=== PATIENT | female | born 1965 | race Caucasian/White ===

== ENCOUNTER 2016-07-22 15:32 | Emergency (ER) | payer OTHER ==
[~2016-07-22 15:32] MED LIST: /ATOR40TA; /ESCI20TA; /ESOM40CA; /FENT50PA; /TIOT18INH; ADV500INH INH; ADVAIR; ALBU83IN; ALBUPOW9 INH; ALDA25TA2; AMITIZIA; AMLO5TAB2 PO; AMOX500T PO; ANUS2.5C2 TOP; ASPI81TA85 PO; ATIV1TAB2; ATOR40TA PO; AVAP150T; AXID150C; BACL10TA2 PO; BACT800T5 PO; CARV3.12 PO; CLIN300C PO; CLON1TAB PO; COLA100C PO; CYMB60CA3 PO; DEMA20TA; DIPH50CA PO; DULO30CA PO; ENAL10TA2; ENAL10TA2 PO; ENAL20TA PO; FAMO20TA PO; FERR325T; FLEXERIL; FLON0.05; FLUT50SP; FURO40TA2 PO; GABA-283 PO; GABA300C2 PO; GLIP10TA18; IBUP80TA PO; IMIT100T; INSULANT; IPRASOL4 IN; KLON1TAB PO; KLOR1TAB77 PO; LANTINJ4 SC; LIDO5DIS36 TD; LISI-538 PO; LORA10TA2 PO; LOSA25TA8 PO; LYRI75CA; LYRI75CA PO; MAGN250T5 PO; MELO7.5S PO; METH-107 PO; METO5TAB2; METOPROLOL; MOBI15TA PO; MUPI2OI; NEXI40GR PO; NUCY50TA14 PO; NYSTOP POWDER; OMEP20CA3 PO; PAIN325T; PERCOCET PO; PROV90AE; REQU2TAB3; ROBA750T4 PO; ROPI2TAB PO; SENN8.6T PO; SERT-141 PO; SOMA350T PO; TESS100C PO; TIOTROPIUM INH; TIZA2CAP3 PO; TRAM100T; TRAM50TA2 PO; TRAZ50TA4 PO; VITA-115 PO; VITAMIN D50000 UNT; [UNRECOGNIZED DRUG - OTHER]; [UNRECOGNIZED DRUG - OTHER]; [UNRECOGNIZED DRUG - OTHER] PO; trajenta PO
[2016-07-22] MEDS ORDERED: MORPHINE 4 MG/ML 1ML SYRINGE As Ordered ONE ×2 (18:06→18:51)
[2016-07-22] MEDS ORDERED: ONDANSETRON 4MG/2ML VIAL (J2405) As Ordered ONE (18:06)
[2016-07-22 18:35] LABS: BASO % 0.9 % (0.0-1.0); EOS # 0.1 K/mm3 (0.0-0.50); EOS % 1.5 % (0.0-3.0); LARGE UNSTAINED CELL # 0.1 K/mm3 (0.0-0.4); LARGE UNSTAINED CELL % 1.6 % (0.0-4.0); LYMPH # 1.3 K/mm3 (1.5-4.5); LYMPH % 24.9 % (24.0-44.0); MEAN CORPUSCULAR HEMOGLOBIN 33.2 pg (27.0-33.0); MEAN CORPUSCULAR HGB CONC 32.8 g/dl (32.0-36.5); MEAN CORPUSCULAR VOLUME 101.2 fl (80.0-96.0); MONO # 0.2 K/mm3 (0.0-0.8); MONO % 4.9 % (0.0-5.0); NEUTROPHILS # 3.2 K/mm3 (1.8-7.7); NEUTROPHILS % 66.1 % (36.0-66.0); RED CELL DISTRIBUTION WIDTH 13.8 % (11.5-14.5); WHITE BLOOD COUNT 4.9 K/mm3 (4.0-10.0)
[2016-07-22 18:36] LABS: PLATELET COUNT, AUTOMATED 100 k/mm3 (150-450)
[2016-07-22 18:52] LABS: ALBUMIN 2.8 GM/DL (3.2-5.2); ALKALINE PHOSPHATASE 85 U/L (45-117); ALT/SGPT 21 U/L (12-78); ANION GAP 7 MEQ/L (8-16); AST/SGOT 30 U/L (15-37); BILIRUBIN,DIRECT 0.2 MG/DL (0.0-0.2); BILIRUBIN,TOTAL 0.6 MG/DL (0.2-1.0); BLOOD UREA NITROGEN 27 MG/DL (7-18); CALCIUM LEVEL 8.9 MG/DL (8.5-10.1); CARBON DIOXIDE LEVEL 23 MEQ/L (21-32); CHLORIDE LEVEL 112 MEQ/L (98-107); CREATININE FOR GFR 0.67 MG/DL (0.55-1.02); GLOMERULAR FILTRATION RATE > 60.0 (>58); GLUCOSE, FASTING 244 MG/DL (70-105); SODIUM LEVEL 142 MEQ/L (136-145); TOTAL PROTEIN 6.3 GM/DL (6.4-8.2)
[2016-07-22 18:54] LABS: POTASSIUM SERUM 5.3 MEQ/L (3.5-5.1)
--- NOTE | 2016-07-22 19:00 | REPUSA ---
HISTORY: Renal colic. TECHNIQUE: Multiple axial CT images were obtained through the abdomen and pelvis without administrat ion of oral or IV contrast material. FINDINGS: Correlation is made with prior study dated 05/03/2016. The liver appears lobulated which suggests cirrhosis. There is no intra or extrahepatic biliary duct al dilatation. The spleen is enlarged measuring 16 cm. 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 Status post cholecystectomy. The pancreas is of normal contour and attenuation characteristics. The re is no evidence of adrenal mass. The kidneys are normal in size, shape and configuration. No renal or ureteral calculi are identified . There is no hydroureter or hydronephrosis. There is no evidence for appendicitis. There is no bowel wall thickening. No evidence for small or large bowel obstruction. There is no evidence of abdominal ascites or lymphadenopathy. Small fat co ntaining umbilical hernia is seen. No evidence of acute abdominal pathology. There is no evidence of intrinsic or extrinsic bladder mass. There is no pelvic ascites or lymphaden opathy. The uterus and ovaries are atrophic. Images of the lung bases show no evidence of pleural or parenchymal mass. There are no pleural effus ions. The bony structures are free of lytic or blastic lesions. IMPRESSION: 1. The liver appears lobulated which suggests cirrhosis. There is no intra or extrahepatic biliary ductal dilatation. 2. The spleen is enlarged measuring 16 cm. 12 mm calcified splenic aneurysm is seen. 3. Small fat containing umbilical hernia is seen. No evidence of acute abdominal pathology. 4. The uterus and ovaries are atrophic. Thank you for your kind referral of this patient. We appreciate the opportunity to participate in th is patient's care.
[2016-07-22] MEDS ORDERED: NORCO 5/325MG TABLET (BULK) As Ordered ONE (20:31)
[2016-07-22] MEDS ORDERED: SOD POLYSTYRENE SULFONATE SUSP 15 GM/60 ML UD As Ordered ONE (20:34)
--- NOTE | 2016-07-22 20:39 | EDDOCDS ---
Physician Documentation [facility] Name: Hina Devi Age: 50 yrs Sex: Female : 1965 Arrival Date: 07/22/2016 Time: 15:32 Bed I6 Private MD: Woodrow Tan MD Disposition: 07/22 20:24 Critical Care: Critical care not applicable. le Disposition: 07/22/16 20:20 Discharged to Home/Self Care. Impression: Abdominal and pelvic pain, Splenomegaly, not elsewhere classified, Other and unspecified cirrhosis of liver - possible, Hyperkalemia. - Condition is Stable. - Discharge Instructions: Abdominal Pain, Adult, Enlarged Spleen, Hyperkalemia. - Medication Reconciliation, Local Pharmacy Hours form. - Follow up: Woodrow Tan; When: Call to arrange an appointment; Reason: Recheck today's complaints, Continuance of care. - Problem is an acute exacerbation. - Symptoms have improved. - Notes: Keep hydrated Return to the ED for any further concerns Historical: - Allergies: Avandia (Swelling); Cardizem CD; Glucophage (Swelling); Lisinopril; Pyridium (Swelling); - Home Meds: 1. Bentyl 10 mg Oral cap 1 cap 4 times per day (Last dose: 07/22/2016 08:00) 2. carvedilol 6.25 mg oral tab 2 times per day (Last dose: 07/22/2016 08:00) 3. clonazepam 0.5 mg oral tab hs (Last dose: 07/21/2016 20:00) 4. Lasix 80 mg oral tab 1 tab prn 5. losartan 50 mg oral tab 1 tab 2 times per day (Last dose: 07/22/2016 08:00) 6. DuoNeb Inhl as needed (Last dose: 07/22/2016) 7. Neurontin 300 mg Oral cap 3 times per day (Last dose: 07/22/2016) 8. Toujeo 40 units Q AM (Last dose: 07/22/2016) 9. Hum R sliding scale AC 10. omeprazole 20 mg Oral cpDR 1 cap once daily (Last dose: 07/22/2016) 11. ropinirole 4 mg oral tab hs (Last dose: 07/21/2016 20:00) 12. tizanidine 2 mg oral tab as needed 13. Wellbutrin XL 150 mg Oral Tb24 1 tab once daily (Last dose: 07/22/2016 08:00) - PMHx: Colitis; COPD; Diabetes - IDDM: controlled; Diabetes - NIDDM: controlled; GERD; Hypertension; mild renal failure; Pneumonia; PVC's; Shingles; - PSHx: Left leg abscess removed; ; Right archiles tendon repair; Right breast lumectomy; Cholecystectomy; Endometriol ablation; Sinus surgery to repair deviated septum; - Social history: Smoking status: Patient uses tobacco products, light tobacco smoker. No barriers to communication noted, The patient speaks fluent Vietnamese. - Family history: Not pertinent. - : The pt / caregiver states he / she is not on anticoagulants. Home medication list is obtained from the patient. - Exposure Risk Screening:: None identified. 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 0 in. (182.88 cm) (R); Pain 9/10; 18:42 BP 173 / 78; Pulse 82; Resp 20; Temp 98.9; Pulse Ox 97% ; Pain 7/10; jam1 18:50 Pain 7/10; dsf 19:29 BP 172 / 72; Pulse 84; Resp 18; Temp 98.6; Pulse Ox 96% ; ajs 19:32 Pain 8/10; dsf 15:34 Body Mass Index 44.76 (149.69 kg, 182.88 cm) gr2 19:29 PT WOULD NOT GIVE PAIN A NUMBER JUST STATES SHE FELT LIKE SHE WAS GETTING WORSE ajs MDM: 15:45 Urinalysis Ordered. EDMS 15:45 Urine Culture Ordered. EDMS 17:39 NS 0.9% 1000 ml IV at bolus once ordered. le 17:39 NS 0.9% 1000 ml IV at 100 mL/hr continuous ordered. le 17:39 Ondansetron 4 mg IVP once ordered. le 17:39 morphine 4 mg IVP every 30 minutes; Document pain score/vitals after each dose (Hold if le SBP < 90mmHg) x2 ordered. 17:39 IV Saline Lock ordered. le 17:39 Undress patient appropriately for examination ordered. le 17:41 Basic Metabolic Profile Ordered. EDMS 17:41 CBC with Diff Ordered. EDMS 17:41 Lipase Ordered. EDMS 17:41 Liver Profile Ordered. EDMS 17:41 CT ABD & PELVIS: No Contrast Ordered. EDMS 17:41 NOTHING BY MOUTH+DIET ordered. EDMS 18:14 Financial registration complete. [facility] 18:22 [facility] Payment Agreement was scanned into [employer] and attached to record. gjb 18:42 Urinalysis Reviewed. le 18:42 CBC with Diff Reviewed. le 20:11 Basic Metabolic Profile Reviewed. le 20:11 Liver Profile Reviewed. le 20:11 Lipase Reviewed. le 20:11 CT ABD & PELVIS: No Contrast Reviewed. le 20:13 Polystyrene Suspension 30 grams PO once ordered. le 20:13 HYDROcodone-acetaminophen 4 pack- 5 mg-325 mg 1 packets PO Per package directions; le Dispense with patient. 1 po q4h prn for pain ordered. Administered Medications: 18:25 Drug: NS 0.9% 1000 ml [sodium chloride 0.9 % injection solution] Route: IV; Rate: dsf bolus; Site: right antecubital; 19:40 Follow up: IV Status: Completed infusion; IV Intake: 1000ml dsf 18:25 Drug: Ondansetron 4 mg [ondansetron HCl 2 mg/mL intravenous solution (2 mL)] Route: dsf IVP; Site: right antecubital; 18:25 Drug: morphine 4 mg [morphine 4 mg/mL intravenous cartridge (1 mL)] Route: IVP; Site: dsf right antecubital; 18:50 Follow up: Pain 7/10 Adult; see charted VS dsf 18:54 Drug: morphine 4 mg [morphine 4 mg/mL intravenous cartridge (1 mL)] Route: IVP; Site: dsf right antecubital; 19:32 Follow up: Pain 8/10 Adult; see charted vs dsf 19:41 Drug: NS 0.9% 1000 ml [sodium chloride 0.9 % injection solution] Route: IV; Rate: 100 dsf mL/hr; Site: right antecubital; Signatures: [facility]patcher [facility] Pedro Pablo Bishop RN RN dwg Terry, VERO Nunez Desiree,ISABELLA RN Britta Vela The chart was reviewed and I authenticate all verbal orders and agree with the evaluation and treatment provided.Attachments: 18:22 [facility] Payment Agreement edda MTDD
--- NOTE | 2016-07-22 20:39 | EDDOCDS ---
Nurse's Notes [facility] Name: Hina Devi Age: 50 yrs Sex: Female : 1965 Arrival Date: 07/22/2016 Time: 15:32 Bed I6 Private MD: Woodrow Tan MD Diagnosis: Abdominal and pelvic pain;Splenomegaly, not elsewhere classified;Other and unspecified cirrhosis of liver-possible;Hyperkalemia Presentation: 07/22 15:37 Presenting complaint: Patient states: Pelvic discomfort since last night along with dwg bilateral flank pain, dysuria. Acute neurological deficits are not present. Mechanism of Injury: No Mechanism of Injury. Adult Sepsis Screening: The patient does not have new or worsening altered mentation. Patient's respiratory rate is less than 22. Systolic blood pressure is greater than 100. Patient has a qSOFA score of 0- Negative Sepsis Screen. Suicide/Homicide risk assessment- the patient denies having any suicidal and/or homicidal ideations and does not present with any other emotional, behavioral or mental health complaints. 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 Transition of care: patient was not received from another setting of care. 15:37 Acuity: SRIKANTH Level 3 dwg 15:37 Method Of Arrival: Walkin/Carried/Asstd dwg Triage Assessment: 15:47 General: Appears in no apparent distress. Pain: Pain currently is 8 out of 10 on a pain dwg scale. HIV screening NA for this visit Offered previously. 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 Bentyl 10 mg Oral cap 1 cap 4 times per day (Last dose: 07/22/2016 08:00) 2. carvedilol 6.25 mg oral tab 2 times per day (Last dose: 07/22/2016 08:00) 3. clonazepam 0.5 mg oral tab hs (Last dose: 07/21/2016 20:00) 4. Lasix 80 mg oral tab 1 tab prn 5. losartan 50 mg oral tab 1 tab 2 times per day (Last dose: 07/22/2016 08:00) 6. DuoNeb Inhl as needed (Last dose: 07/22/2016) 7. Neurontin 300 mg Oral cap 3 times per day (Last dose: 07/22/2016) 8. Toujeo 40 units Q AM (Last dose: 07/22/2016) 9. Hum R sliding scale AC 10. omeprazole 20 mg Oral cpDR 1 cap once daily (Last dose: 07/22/2016) 11. ropinirole 4 mg oral tab hs (Last dose: 07/21/2016 20:00) 12. tizanidine 2 mg oral tab as needed 13. Wellbutrin XL 150 mg Oral Tb24 1 tab once daily (Last dose: 07/22/2016 08:00) - PMHx: Colitis; COPD; Diabetes - IDDM: controlled; Diabetes - NIDDM: controlled; GERD; Hypertension; mild renal failure; Pneumonia; PVC's; Shingles; - PSHx: Left leg abscess removed; ; Right archiles tendon repair; Right breast lumectomy; Cholecystectomy; Endometriol ablation; Sinus surgery to repair deviated septum; - Social history: Smoking status: Patient uses tobacco products, light tobacco smoker. No barriers to communication noted, The patient speaks fluent Occitan. - Family history: Not pertinent. - : The pt / caregiver states he / she is not on anticoagulants. Home medication list is obtained from the patient. - Exposure Risk Screening:: None identified. Screenin:04 Infection Control. gr2 20:36 Screening information is obtained from the patient. Fall risk: No risks identified. dsf Assistance ADL's: requires no assistance with activities of daily living. Abuse/DV Screen: The patient / caregiver reports he/she is: not in a situation that causes fear, pain or injury. Nutritional screening: No deficits noted. Advance Directives: Currently, there is no health care proxy. home support is adequate. Assessment: 18:03 General: pt returned from CT via stretcher . dsf 18:25 General: Appears uncomfortable, Behavior is appropriate for age, cooperative. Pain: dsf Location: low back and left flank Pain currently is 8 out of 10 on a pain scale. Quality of pain is described as sharp. Neurological: Level of Consciousness is awake, alert, Oriented to person, place, time. Cardiovascular: Capillary refill < 3 seconds Heart tones S1 S2 present. Respiratory: Airway is patent Respiratory effort is even, unlabored, Respiratory pattern is regular, symmetrical, Breath sounds are clear bilaterally. GI: Abdomen is non- distended obese, Bowel sounds present X 4 quads. Abd is soft X 4 quads Abd is tender to palpation in left upper quadrant and left lower quadrant. Derm: Skin is pink, warm & dry. Musculoskeletal: No deficits noted. 19:41 General: Appears uncomfortable, Behavior is appropriate for age, cooperative. Pain: dsf Pain currently is 7 out of 10 on a pain scale. Neurological: Level of Consciousness is awake, alert. Cardiovascular: Capillary refill < 3 seconds. Respiratory: Airway is patent Respiratory effort is even, unlabored, Respiratory pattern is regular, symmetrical. Derm: Skin is pink, warm & dry. 20:36 General: Appears uncomfortable, Behavior is appropriate for age, cooperative. Pain: dsf Location: back and left flank Pain currently is 7 out of 10 on a pain scale. Neurological: Level of Consciousness is awake, alert. Cardiovascular: Capillary refill < 3 seconds. Respiratory: Airway is patent Respiratory effort is even, unlabored, Respiratory pattern is regular, symmetrical. Derm: Skin is pink, warm & dry. Vital Signs: 15:34 BP 197 / 88; Pulse 91; Resp 18 S; Temp 99.1(O); Pulse Ox 97% on R/A; Weight 149.69 kg gr2 (R); Height 6 ft. 0 in. (182.88 cm) (R); Pain 9/10; 18:42 BP 173 / 78; Pulse 82; Resp 20; Temp 98.9; Pulse Ox 97% ; Pain 7/10; jam1 18:50 Pain 7/10; dsf 19:29 BP 172 / 72; Pulse 84; Resp 18; Temp 98.6; Pulse Ox 96% ; ajs 19:32 Pain 8/10; dsf 15:34 Body Mass Index 44.76 (149.69 kg, 182.88 cm) gr2 19:29 PT WOULD NOT GIVE PAIN A NUMBER JUST STATES SHE FELT LIKE SHE WAS GETTING WORSE ajs Vitals: 15:34 Log In Time: July 22, 2016 at 15:34. gr2 ED Course: 15:34 Patient visited by Stephie Ontiveros. gr2 15:34 Woodrow Tan is Private Physician. gr2 15:34 Patient moved to Waiting gr2 15:36 Patient visited by Stephie Ontiveros. gr2 15:36 Patient moved to Pre RCE gr2 15:38 Triage Initiated dwg 16:05 Patient moved to Triage 3 srm 16:20 Urine Culture Sent. mdr 16:20 Urinalysis Sent. mdr 17:28 May[facility] Stewart FNP [facility]. le 17:34 Patient visited by Mayra Stewart FNP. le 17:34 Patient visited by Mayra Stewart FNP. le 17:44 Patient moved to I srm 18:22 [facility] Payment Agreement was scanned into [employer] and attached to record. gjb 18:24 Basic Metabolic Profile Sent. dsf 18:24 CBC with Diff Sent. dsf 18:24 Lipase Sent. dsf 18:24 Liver Profile Sent. dsf 18:24 Inserted saline lock: 18 gauge in right antecubital area The patient tolerated the dsf procedure well. No procedures done that require assistance. 18:26 Patient visited by Sylvia Redd RN. dsf 19:18 CT ABD & PELVIS: No Contrast Returned. EDMS 19:30 Patient visited by Rocio Mclaughlin. ajs 19:41 Patient visited by Sylvia Redd,ISABELLA. dsf 20:20 Woodrow Tan is Referral Physician. le 20:36 The patient / caregiver is instructed regarding the plan of care and ED course. dsf 20:37 Discontinued lock intact, bleeding controlled, pressure dressing applied, No dsf redness/swelling at site. Administered Medications: 18:25 Drug: NS 0.9% 1000 ml [sodium chloride 0.9 % injection solution] Route: IV; Rate: dsf bolus; Site: right antecubital; 19:40 Follow up: IV Status: Completed infusion; IV Intake: 1000ml dsf 18:25 Drug: Ondansetron 4 mg [ondansetron HCl 2 mg/mL intravenous solution (2 mL)] Route: dsf IVP; Site: right antecubital; 18:25 Drug: morphine 4 mg [morphine 4 mg/mL intravenous cartridge (1 mL)] Route: IVP; Site: dsf right antecubital; 18:50 Follow up: Pain 7/10 Adult; see charted VS dsf 18:54 Drug: morphine 4 mg [morphine 4 mg/mL intravenous cartridge (1 mL)] Route: IVP; Site: dsf right antecubital; 19:32 Follow up: Pain 8/10 Adult; see charted vs dsf 19:41 Drug: NS 0.9% 1000 ml [sodium chloride 0.9 % injection solution] Route: IV; Rate: 100 dsf mL/hr; Site: right antecubital; Intake: 19:40 IV: 1000.00ml; Total: 1000.00ml. dsf Order Results: Lab Order: Urinalysis; SPEC'M 07/22/16 16:16 Test: APPEARANCE, URINE; Value: HAZY; Range: CLEAR; Status: F Test: COLOR, URINE; Value: YELLOW; Range: YELLOW; Status: F Test: PH,URINE; Value: 5.0; Range: 5.0-9.0; Units: UNITS; Status: F Test: SPECIFIC GRAVITY URINE AUTO; Value: 1.015; Range: 1.002-1.035; Status: F Test: PROTEIN, URINE AUTO; Value: 2+; Range: NEGATIVE; Abnormal: Above high normal; Units: mg/dL; Status: F Test: GLUCOSE, URINE (UA) AUTO; Value: 3+; Range: NEGATIVE; Abnormal: Above high normal; Units: mg/dL; Status: F Test: KETONE, URINE AUTO; Value: NEGATIVE; Range: NEGATIVE; Units: mg/dL; Status: F Test: UROBILINOGEN, URINE AUTO; Value: 0.2; Range: 0.0-2.0; Units: mg/dL; Status: F Test: BILIRUBIN, URINE AUTO; Value: NEGATIVE; Range: NEGATIVE; Status: F Test: NITRITE, URINE AUTO; Value: POSITIVE; Range: NEGATIVE; Status: F Test: LEUKOCYTE ESTERASE, URINE AUTO; Value: 2+; Range: NEGATIVE; Abnormal: Above high normal; Status: F Test: BLOOD, URINE BLOOD; Value: 3+; Range: NEGATIVE; Abnormal: Above high normal; Status: F Test: WBC, URINE AUTO; Value: 155; Range: 0-3; Abnormal: Above high normal; Units: /HPF; Status: F Test: RBC, URINE AUTO; Value: 4; Range: 0-3; Abnormal: Above high normal; Units: /HPF; Status: F Test: BACTERIA, URINE AUTO; Value: NEGATIVE; Range: NEGATIVE; Status: F Test: SQUAMOUS EPITHELIAL CELL UR AU; Value: 0; Range: 0-6; Units: /HPF; Status: F Test: MUCUS, URINE; Value: SMALL; Range: NEGATIVE; Status: F Test: HYALINE CAST, URINE AUTO; Value: 0; Range: 0-1; Units: /LPF; Status: F Lab Order: Basic Metabolic Profile; SPEC'M 07/22/16 18:12 Test: GLUCOSE, FASTING; Value: 244; Range: 70-105; Abnormal: Above high normal; Units: MG/DL; Status: F Test: BLOOD UREA NITROGEN; Value: 27; Range: 7-18; Abnormal: Above high normal; Units: MG/DL; Status: F Test: CREATININE FOR GFR; Value: 0.67; Range: 0.55-1.02; Units: MG/DL; Status: F Test: GLOMERULAR FILTRATION RATE; Value: > 60.0; Range: >58; Status: F Test: SODIUM LEVEL; Value: 142; Range: 136-145; Units: MEQ/L; Status: F Test: POTASSIUM SERUM; Value: 5.3; Range: 3.5-5.1; Abnormal: Above high normal; Units: MEQ/L; Status: F Test: CHLORIDE LEVEL; Value: 112; Range: 98-107; Abnormal: Above high normal; Units: MEQ/L; Status: F Test: CARBON DIOXIDE LEVEL; Value: 23; Range: 21-32; Units: MEQ/L; Status: F Test: ANION GAP; Value: 7; Range: 8-16; Abnormal: Below low normal; Units: MEQ/L; Status: F Test: CALCIUM LEVEL; Value: 8.9; Range: 8.5-10.1; Units: MG/DL; Status: F Test Note: ; Units are mL/min/1.73 m2 Chronic Kidney Disease Staging per NKF: Stage I & II GFR >=60 Normal to Mildly Decreased Stage III GFR 30-59 Moderately Decreased Stage IV GFR 15-29 Severely Decreased Stage V GFR <15 Very Little GFR Left ESRD GFR <15 on AUTO CLUTCH REBUILDER Lab Order: CBC with Diff; SPEC'M 07/22/16 18:12 Test: WHITE BLOOD COUNT; Value: 4.9; Range: 4.0-10.0; Units: K/mm3; Status: F Test: RED BLOOD COUNT; Value: 4.02; Range: 4.00-5.40; Units: M/mm3; Status: F Test: HEMOGLOBIN; Value: 13.3; Range: 12.0-16.0; Units: g/dl; Status: F Test: HEMATOCRIT; Value: 40.6; Range: 36.0-47.0; Units: %; Status: F Test: MEAN CORPUSCULAR VOLUME; Value: 101.2; Range: 80.0-96.0; Abnormal: Above high normal; Units: fl; Status: F Test: MEAN CORPUSCULAR HEMOGLOBIN; Value: 33.2; Range: 27.0-33.0; Abnormal: Above high normal; Units: pg; Status: F Test: MEAN CORPUSCULAR HGB CONC; Value: 32.8; Range: 32.0-36.5; Units: g/dl; Status: F Test: RED CELL DISTRIBUTION WIDTH; Value: 13.8; Range: 11.5-14.5; Units: %; Status: F Test: PLATELET COUNT, AUTOMATED; Value: 100; Range: 150-450; Abnormal: Below low normal; Units: k/mm3; Status: F Test: NEUTROPHILS %; Value: 66.1; Range: 36.0-66.0; Abnormal: Above high normal; Units: %; Status: F Test: LYMPH %; Value: 24.9; Range: 24.0-44.0; Units: %; Status: F Test: MONO %; Value: 4.9; Range: 0.0-5.0; Units: %; Status: F Test: EOS %; Value: 1.5; Range: 0.0-3.0; Units: %; Status: F Test: BASO %; Value: 0.9; Range: 0.0-1.0; Units: %; Status: F Test: LARGE UNSTAINED CELL %; Value: 1.6; Range: 0.0-4.0; Units: %; Status: F Test: NEUTROPHILS #; Value: 3.2; Range: 1.8-7.7; Units: K/mm3; Status: F Test: LYMPH #; Value: 1.3; Range: 1.5-4.5; Abnormal: Below low normal; Units: K/mm3; Status: F Test: MONO #; Value: 0.2; Range: 0.0-0.8; Units: K/mm3; Status: F Test: EOS #; Value: 0.1; Range: 0.0-0.50; Units: K/mm3; Status: F Test: BASO #; Value: 0.0; Range: 0.0-0.2; Units: K/mm3; Status: F Test: LARGE UNSTAINED CELL #; Value: 0.1; Range: 0.0-0.4; Units: K/mm3; Status: F Lab Order: Lipase; SPEC'M 07/22/16 18:12 Test: LIPASE; Value: 288; Range: 73-393; Units: U/L; Status: F Lab Order: Liver Profile; SPEC'M 07/22/16 18:12 Test: AST/SGOT; Value: 30; Range: 15-37; Units: U/L; Status: F Test: ALT/SGPT; Value: 21; Range: 12-78; Units: U/L; Status: F Test: ALKALINE PHOSPHATASE; Value: 85; Range: 45-117; Units: U/L; Status: F Test: BILIRUBIN,TOTAL; Value: 0.6; Range: 0.2-1.0; Units: MG/DL; Status: F Test: BILIRUBIN,DIRECT; Value: 0.2; Range: 0.0-0.2; Units: MG/DL; Status: F Test: TOTAL PROTEIN; Value: 6.3; Range: 6.4-8.2; Abnormal: Below low normal; Units: GM/DL; Status: F Test: ALBUMIN; Value: 2.8; Range: 3.2-5.2; Abnormal: Below low normal; Units: GM/DL; Status: F Test: ALBUMIN/GLOBULIN RATIO; Value: 0.80; Range: 1.00-1.93; Abnormal: Below low normal; Status: F Radiology Order: CT ABD & PELVIS: No Contrast Test: CT ABD & PELVIS: No Contrast REASON FOR EXAMINATION: Renal colic; ; HISTORY: Renal colic.; ; TECHNIQUE: Multiple axial CT images were obtained through the abdomen and pelvis without administrat; ion of oral or IV contrast material.; ; FINDINGS:; ; Correlation is made with prior study dated 05/03/2016.; ; The liver appears lobulated which suggests cirrhosis. There is no intra or extrahepatic biliary duct; al dilatation. The spleen is enlarged measuring 16 cm. 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 The pancreas is of normal contour and attenuation characteristics. The; re is no evidence of adrenal mass.; ; The kidneys are normal in size, shape and configuration. No renal or ureteral calculi are identified; . There is no hydroureter or hydronephrosis.; ; There is no evidence for appendicitis. There is no bowel wall thickening. No evidence for small or; large bowel obstruction. There is no evidence of abdominal ascites or lymphadenopathy. Small fat co; ntaining umbilical hernia is seen. No evidence of acute abdominal pathology.; ; There is no evidence of intrinsic or extrinsic bladder mass. There is no pelvic ascites or lymphaden; opathy.; ; The uterus and ovaries are atrophic.; ; Images of the lung bases show no evidence of pleural or parenchymal mass. There are no pleural effus; ions.; ; The bony structures are free of lytic or blastic lesions.; ; IMPRESSION:; 1. The liver appears lobulated which suggests cirrhosis. There is no intra or extrahepatic biliary; ductal dilatation.; 2. The spleen is enlarged measuring 16 cm. 12 mm calcified splenic aneurysm is seen.; 3. Small fat containing umbilical hernia is seen. No evidence of acute abdominal pathology.; 4. The uterus and ovaries are atrophic.; ; ; Thank you for your kind referral of this patient. We appreciate the opportunity to participate in ; is patient's care.; ; ; ; ; ; Outcome: 20:20 Discharge ordered by Provider. le 20:38 Discharge Assessment: Patient awake, alert and oriented x 3. No cognitive and/or dsf functional deficits noted. Patient verbalized understanding of disposition instructions. patient administered narcotics - no. The following High Risk Discharge criteria are identified: None. Discharged to home ambulatory. Condition: stable. Discharge instructions given to patient, Instructed on discharge instructions, follow up and referral plans. medication usage, no driving heavy equipment, Demonstrated understanding of instructions, medications, Pt was receptive of discharge instructions/ teaching. CT Study completed. Property sent home with patient. 20:38 Patient left the ED. dsf Signatures: Dispatcher [facility] EDPedro Pablo Rodriguez RN RN Osiris Staples, RN RN Olga Catherine, PATTERN DATA OPERATOR PATTERN DATA OPERATOR jam1 Mayra Stewart, INSIDE SALES PERSON Sylvia Mcdaniel,RN RN Rocio Aleman Gainslee gr2 Navneet Castañeda, PATTERN DATA OPERATOR PATTERN DATA OPERATOR mdr Adalberto, Britta bañuelos MTDD
--- NOTE | 2016-07-24 21:39 | EDDOCDS ---
Physician Documentation [facility] Name: Hina Devi Age: 50 yrs Sex: Female : 1965 Arrival Date: 07/22/2016 Time: 15:32 Bed I6 Private MD: Woodrow Tan MD Disposition: 07/22 20:24 Critical Care: Critical care not applicable. le Disposition: 07/22/16 20:20 Discharged to Home/Self Care. Impression: Abdominal and pelvic pain, Splenomegaly, not elsewhere classified, Other and unspecified cirrhosis of liver - possible, Hyperkalemia. - Condition is Stable. - Discharge Instructions: Abdominal Pain, Adult, Enlarged Spleen, Hyperkalemia. - Medication Reconciliation, Local Pharmacy Hours form. - Follow up: Woodrow Tan; When: Call to arrange an appointment; Reason: Recheck today's complaints, Continuance of care. - Problem is an acute exacerbation. - Symptoms have improved. - Notes: Keep hydrated Return to the ED for any further concerns Historical: - Allergies: Avandia (Swelling); Cardizem CD; Glucophage (Swelling); Lisinopril; Pyridium (Swelling); - Home Meds: 1. Bentyl 10 mg Oral cap 1 cap 4 times per day (Last dose: 07/22/2016 08:00) 2. carvedilol 6.25 mg oral tab 2 times per day (Last dose: 07/22/2016 08:00) 3. clonazepam 0.5 mg oral tab hs (Last dose: 07/21/2016 20:00) 4. Lasix 80 mg oral tab 1 tab prn 5. losartan 50 mg oral tab 1 tab 2 times per day (Last dose: 07/22/2016 08:00) 6. DuoNeb Inhl as needed (Last dose: 07/22/2016) 7. Neurontin 300 mg Oral cap 3 times per day (Last dose: 07/22/2016) 8. Toujeo 40 units Q AM (Last dose: 07/22/2016) 9. Hum R sliding scale AC 10. omeprazole 20 mg Oral cpDR 1 cap once daily (Last dose: 07/22/2016) 11. ropinirole 4 mg oral tab hs (Last dose: 07/21/2016 20:00) 12. tizanidine 2 mg oral tab as needed 13. Wellbutrin XL 150 mg Oral Tb24 1 tab once daily (Last dose: 07/22/2016 08:00) - PMHx: Colitis; COPD; Diabetes - IDDM: controlled; Diabetes - NIDDM: controlled; GERD; Hypertension; mild renal failure; Pneumonia; PVC's; Shingles; - PSHx: Left leg abscess removed; ; Right archiles tendon repair; Right breast lumectomy; Cholecystectomy; Endometriol ablation; Sinus surgery to repair deviated septum; - Social history: Smoking status: Patient uses tobacco products, light tobacco smoker. No barriers to communication noted, The patient speaks fluent Kyrgyz. - Family history: Not pertinent. - : The pt / caregiver states he / she is not on anticoagulants. Home medication list is obtained from the patient. - Exposure Risk Screening:: None identified. 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 0 in. (182.88 cm) (R); Pain 9/10; 18:42 BP 173 / 78; Pulse 82; Resp 20; Temp 98.9; Pulse Ox 97% ; Pain 7/10; jam1 18:50 Pain 7/10; dsf 19:29 BP 172 / 72; Pulse 84; Resp 18; Temp 98.6; Pulse Ox 96% ; ajs 19:32 Pain 8/10; dsf 15:34 Body Mass Index 44.76 (149.69 kg, 182.88 cm) gr2 19:29 PT WOULD NOT GIVE PAIN A NUMBER JUST STATES SHE FELT LIKE SHE WAS GETTING WORSE ajs MDM: 15:45 Urinalysis Ordered. EDMS 15:45 Urine Culture Ordered. EDMS 17:39 NS 0.9% 1000 ml IV at bolus once ordered. le 17:39 NS 0.9% 1000 ml IV at 100 mL/hr continuous ordered. le 17:39 Ondansetron 4 mg IVP once ordered. le 17:39 morphine 4 mg IVP every 30 minutes; Document pain score/vitals after each dose (Hold if le SBP < 90mmHg) x2 ordered. 17:39 IV Saline Lock ordered. le 17:39 Undress patient appropriately for examination ordered. le 17:41 Basic Metabolic Profile Ordered. EDMS 17:41 CBC with Diff Ordered. EDMS 17:41 Lipase Ordered. EDMS 17:41 Liver Profile Ordered. EDMS 17:41 CT ABD & PELVIS: No Contrast Ordered. EDMS 17:41 NOTHING BY MOUTH+DIET ordered. EDMS 18:14 Financial registration complete. gjb 18:22 [facility] Payment Agreement was scanned into [employer] and attached to record. gjb 18:42 Urinalysis Reviewed. le 18:42 CBC with Diff Reviewed. le 20:11 Basic Metabolic Profile Reviewed. le 20:11 Liver Profile Reviewed. le 20:11 Lipase Reviewed. le 20:11 CT ABD & PELVIS: No Contrast Reviewed. le 20:13 Polystyrene Suspension 30 grams PO once ordered. le 20:13 HYDROcodone-acetaminophen 4 pack- 5 mg-325 mg 1 packets PO Per package directions; le Dispense with patient. 1 po q4h prn for pain ordered. 07/23 11:27 T-Sheet-- Draft Copy was scanned into [employer] and attached to record. gb 14:43 ED course: dr tan faxed formal report of ct abd/p for fu mlg. ml Administered Medications: 07/22 18:25 Drug: NS 0.9% 1000 ml [sodium chloride 0.9 % injection solution] Route: IV; Rate: dsf bolus; Site: right antecubital; 19:40 Follow up: IV Status: Completed infusion; IV Intake: 1000ml dsf 18:25 Drug: Ondansetron 4 mg [ondansetron HCl 2 mg/mL intravenous solution (2 mL)] Route: dsf IVP; Site: right antecubital; 18:25 Drug: morphine 4 mg [morphine 4 mg/mL intravenous cartridge (1 mL)] Route: IVP; Site: dsf right antecubital; 18:50 Follow up: Pain 7/10 Adult; see charted VS dsf 18:54 Drug: morphine 4 mg [morphine 4 mg/mL intravenous cartridge (1 mL)] Route: IVP; Site: dsf right antecubital; 19:32 Follow up: Pain 8/10 Adult; see charted vs dsf 19:41 Drug: NS 0.9% 1000 ml [sodium chloride 0.9 % injection solution] Route: IV; Rate: 100 dsf mL/hr; Site: right antecubital; 20:39 Follow up: IV Status: Infusion discontinued; IV Intake: 150ml dsf 20:34 Drug: Polystyrene 30 grams [sodium polystyrene sulfonate 15 gram/60 mL oral suspension dsf (120 mL)] Route: PO; 20:34 Drug: HYDROcodone-acetaminophen 4 pack- 1 packets [hydrocodone 5 mg-acetaminophen 325 dsf mg tablet (1 tabs)] {Co-Signature: [email or web address] (Marcie Warren RN).} Route: PO; Signatures: Dispatcher [employer] EDMS Julio Romo MD MD ml Greene, Daniel, RN RN dwg Brandi Young, Reg Reg gb Mayra Stewart, Sylvia Rosales RN RN dsf Beck, Gabriela gjb Kelsi Crane RN [id number] The chart was reviewed and I authenticate all verbal orders and agree with the evaluation and treatment provided.Attachments: 18:22 [facility] Payment Agreement [email or web address] 07/23 11:27 T-Sheet-- Draft Copy gb Chart Complete MTDD
--- NOTE | 2016-07-24 21:39 | EDDOCDS ---
[facility] Name: Hina Devi Age: 50 yrs Sex: Female : 1965 Arrival Date: 07/22/2016 Time: 15:32 Bed I6 Private MD: Woodrow Tan MD Diagnosis: Abdominal and pelvic pain;Splenomegaly, not elsewhere classified;Other and unspecified cirrhosis of liver-possible;Hyperkalemia Presentation: 07/22 15:37 Presenting complaint: Patient states: Pelvic discomfort since last night along with dwg bilateral flank pain, dysuria. Acute neurological deficits are not present. Mechanism of Injury: No Mechanism of Injury. Adult Sepsis Screening: The patient does not have new or worsening altered mentation. Patient's respiratory rate is less than 22. Systolic blood pressure is greater than 100. Patient has a qSOFA score of 0- Negative Sepsis Screen. Suicide/Homicide risk assessment- the patient denies having any suicidal and/or homicidal ideations and does not present with any other emotional, behavioral or mental health complaints. Status: Patient is not a aircraft servicer or dependent. Transition of care: patient was not received from another setting of care. 15:37 Acuity: SRIKANTH Level 3 dwg 15:37 Method Of Arrival: Walkin/Carried/Asstd dwg Triage Assessment: 15:47 General: Appears in no apparent distress. Pain: Pain currently is 8 out of 10 on a pain dwg scale. HIV screening NA for this visit Offered previously. TEST ENGINEER: 15:47 LMP N/A - Uterine ablation dwg Historical: - Allergies: Avandia (Swelling); Cardizem CD; Glucophage (Swelling); Lisinopril; Pyridium (Swelling); - Home Meds: 1. Bentyl 10 mg Oral cap 1 cap 4 times per day (Last dose: 07/22/2016 08:00) 2. carvedilol 6.25 mg oral tab 2 times per day (Last dose: 07/22/2016 08:00) 3. clonazepam 0.5 mg oral tab hs (Last dose: 07/21/2016 20:00) 4. Lasix 80 mg oral tab 1 tab prn 5. losartan 50 mg oral tab 1 tab 2 times per day (Last dose: 07/22/2016 08:00) 6. DuoNeb Inhl as needed (Last dose: 07/22/2016) 7. Neurontin 300 mg Oral cap 3 times per day (Last dose: 07/22/2016) 8. Toujeo 40 units Q AM (Last dose: 07/22/2016) 9. Hum R sliding scale AC 10. omeprazole 20 mg Oral cpDR 1 cap once daily (Last dose: 07/22/2016) 11. ropinirole 4 mg oral tab hs (Last dose: 07/21/2016 20:00) 12. tizanidine 2 mg oral tab as needed 13. Wellbutrin XL 150 mg Oral Tb24 1 tab once daily (Last dose: 07/22/2016 08:00) - PMHx: Colitis; COPD; Diabetes - IDDM: controlled; Diabetes - NIDDM: controlled; GERD; Hypertension; mild renal failure; Pneumonia; PVC's; Shingles; - PSHx: Left leg abscess removed; ; Right archiles tendon repair; Right breast lumectomy; Cholecystectomy; Endometriol ablation; Sinus surgery to repair deviated septum; - Social history: Smoking status: Patient uses tobacco products, light tobacco smoker. No barriers to communication noted, The patient speaks fluent Chinese. - Family history: Not pertinent. - : The pt / caregiver states he / she is not on anticoagulants. Home medication list is obtained from the patient. - Exposure Risk Screening:: None identified. Screenin:04 Infection Control. gr2 20:36 Screening information is obtained from the patient. Fall risk: No risks identified. dsf Assistance ADL's: requires no assistance with activities of daily living. Abuse/DV Screen: The patient / caregiver reports he/she is: not in a situation that causes fear, pain or injury. Nutritional screening: No deficits noted. Advance Directives: Currently, there is no health care proxy. home support is adequate. Assessment: 18:03 General: pt returned from CT via stretcher . dsf 18:25 General: Appears uncomfortable, Behavior is appropriate for age, cooperative. Pain: dsf Location: low back and left flank Pain currently is 8 out of 10 on a pain scale. Quality of pain is described as sharp. Neurological: Level of Consciousness is awake, alert, Oriented to person, place, time. Cardiovascular: Capillary refill < 3 seconds Heart tones S1 S2 present. Respiratory: Airway is patent Respiratory effort is even, unlabored, Respiratory pattern is regular, symmetrical, Breath sounds are clear bilaterally. GI: Abdomen is non- distended obese, Bowel sounds present X 4 quads. Abd is soft X 4 quads Abd is tender to palpation in left upper quadrant and left lower quadrant. Derm: Skin is pink, warm & dry. Musculoskeletal: No deficits noted. 19:41 General: Appears uncomfortable, Behavior is appropriate for age, cooperative. Pain: dsf Pain currently is 7 out of 10 on a pain scale. Neurological: Level of Consciousness is awake, alert. Cardiovascular: Capillary refill < 3 seconds. Respiratory: Airway is patent Respiratory effort is even, unlabored, Respiratory pattern is regular, symmetrical. Derm: Skin is pink, warm & dry. 20:36 General: Appears uncomfortable, Behavior is appropriate for age, cooperative. Pain: dsf Location: back and left flank Pain currently is 7 out of 10 on a pain scale. Neurological: Level of Consciousness is awake, alert. Cardiovascular: Capillary refill < 3 seconds. Respiratory: Airway is patent Respiratory effort is even, unlabored, Respiratory pattern is regular, symmetrical. Derm: Skin is pink, warm & dry. Vital Signs: 15:34 BP 197 / 88; Pulse 91; Resp 18 S; Temp 99.1(O); Pulse Ox 97% on R/A; Weight 149.69 kg gr2 (R); Height 6 ft. 0 in. (182.88 cm) (R); Pain 9/10; 18:42 BP 173 / 78; Pulse 82; Resp 20; Temp 98.9; Pulse Ox 97% ; Pain 7/10; jam1 18:50 Pain 7/10; dsf 19:29 BP 172 / 72; Pulse 84; Resp 18; Temp 98.6; Pulse Ox 96% ; ajs 19:32 Pain 8/10; dsf 15:34 Body Mass Index 44.76 (149.69 kg, 182.88 cm) gr2 19:29 PT WOULD NOT GIVE PAIN A NUMBER JUST STATES SHE FELT LIKE SHE WAS GETTING WORSE ajs Vitals: 15:34 Log In Time: July 22, 2016 at 15:34. gr2 ED Course: 15:34 Patient visited by Stephie Ontiveros. gr2 15:34 Woodrow Tan is Private Physician. gr2 15:34 Patient moved to Waiting gr2 15:36 Patient visited by Stephie Ontiveros. gr2 15:36 Patient moved to Pre RCE gr2 15:38 Triage Initiated dwg 16:05 Patient moved to Triage 3 srm 16:20 Urine Culture Sent. mdr 16:20 Urinalysis Sent. mdr 17:28 Mayra Stewart FNP is [facility]. le 17:34 Patient visited by Mayra Stewart FNP. le 17:34 Patient visited by Mayra Stewart FNP. le 17:44 Patient moved to I srm 18:22 [facility] Payment Agreement was scanned into [employer] and attached to record. gjb 18:24 Basic Metabolic Profile Sent. dsf 18:24 CBC with Diff Sent. dsf 18:24 Lipase Sent. dsf 18:24 Liver Profile Sent. dsf 18:24 Inserted saline lock: 18 gauge in right antecubital area The patient tolerated the dsf procedure well. No procedures done that require assistance. 18:26 Patient visited by Sylvia Redd,ISABELLA. dsf 19:18 CT ABD & PELVIS: No Contrast Returned. EDMS 19:30 Patient visited by Rocio Mclaughlin. ajs 19:41 Patient visited by Sylvia Redd,ISABELLA. dsf 20:20 Woodrow Tan is Referral Physician. le 20:36 The patient / caregiver is instructed regarding the plan of care and ED course. dsf 20:37 Discontinued lock intact, bleeding controlled, pressure dressing applied, No dsf redness/swelling at site. 07/23 11:27 T-Sheet-- Draft Copy was scanned into [employer] and attached to record. gb Administered Medications: 07/22 18:25 Drug: NS 0.9% 1000 ml [sodium chloride 0.9 % injection solution] Route: IV; Rate: dsf bolus; Site: right antecubital; 19:40 Follow up: IV Status: Completed infusion; IV Intake: 1000ml dsf 18:25 Drug: Ondansetron 4 mg [ondansetron HCl 2 mg/mL intravenous solution (2 mL)] Route: dsf IVP; Site: right antecubital; 18:25 Drug: morphine 4 mg [morphine 4 mg/mL intravenous cartridge (1 mL)] Route: IVP; Site: dsf right antecubital; 18:50 Follow up: Pain 7/10 Adult; see charted VS dsf 18:54 Drug: morphine 4 mg [morphine 4 mg/mL intravenous cartridge (1 mL)] Route: IVP; Site: dsf right antecubital; 19:32 Follow up: Pain 8/10 Adult; see charted vs dsf 19:41 Drug: NS 0.9% 1000 ml [sodium chloride 0.9 % injection solution] Route: IV; Rate: 100 dsf mL/hr; Site: right antecubital; 20:39 Follow up: IV Status: Infusion discontinued; IV Intake: 150ml dsf 20:34 Drug: Polystyrene 30 grams [sodium polystyrene sulfonate 15 gram/60 mL oral suspension dsf (120 mL)] Route: PO; 20:34 Drug: HYDROcodone-acetaminophen 4 pack- 1 packets [hydrocodone 5 mg-acetaminophen 325 dsf mg tablet (1 tabs)] {Co-Signature: kc3 (Marcie Warren RN).} Route: PO; Intake: 19:40 IV: 1000.00ml; Total: 1000.00ml. dsf 20:39 IV: 150.00ml; Total: 1150.00ml. dsf Order Results: Lab Order: Urinalysis; SPEC'M 07/22/16 16:16 Test: APPEARANCE, URINE; Value: HAZY; Range: CLEAR; Status: F Test: COLOR, URINE; Value: YELLOW; Range: YELLOW; Status: F Test: PH,URINE; Value: 5.0; Range: 5.0-9.0; Units: UNITS; Status: F Test: SPECIFIC GRAVITY URINE AUTO; Value: 1.015; Range: 1.002-1.035; Status: F Test: PROTEIN, URINE AUTO; Value: 2+; Range: NEGATIVE; Abnormal: Above high normal; Units: mg/dL; Status: F Test: GLUCOSE, URINE (UA) AUTO; Value: 3+; Range: NEGATIVE; Abnormal: Above high normal; Units: mg/dL; Status: F Test: KETONE, URINE AUTO; Value: NEGATIVE; Range: NEGATIVE; Units: mg/dL; Status: F Test: UROBILINOGEN, URINE AUTO; Value: 0.2; Range: 0.0-2.0; Units: mg/dL; Status: F Test: BILIRUBIN, URINE AUTO; Value: NEGATIVE; Range: NEGATIVE; Status: F Test: NITRITE, URINE AUTO; Value: POSITIVE; Range: NEGATIVE; Status: F Test: LEUKOCYTE ESTERASE, URINE AUTO; Value: 2+; Range: NEGATIVE; Abnormal: Above high normal; Status: F Test: BLOOD, URINE BLOOD; Value: 3+; Range: NEGATIVE; Abnormal: Above high normal; Status: F Test: WBC, URINE AUTO; Value: 155; Range: 0-3; Abnormal: Above high normal; Units: /HPF; Status: F Test: RBC, URINE AUTO; Value: 4; Range: 0-3; Abnormal: Above high normal; Units: /HPF; Status: F Test: BACTERIA, URINE AUTO; Value: NEGATIVE; Range: NEGATIVE; Status: F Test: SQUAMOUS EPITHELIAL CELL UR AU; Value: 0; Range: 0-6; Units: /HPF; Status: F Test: MUCUS, URINE; Value: SMALL; Range: NEGATIVE; Status: F Test: HYALINE CAST, URINE AUTO; Value: 0; Range: 0-1; Units: /LPF; Status: F Lab Order: Urine Culture; SPEC'M 07/22/16 16:16 Test: URINE CULTURE; Value: ORGANISM 1: ESCHERICHIA COLI; Status: F Test: URINE CULTURE; Value: ESCHERICHIA COLI; Status: F Test: URINE CULTURE; Value: COLONY COUNT CFU/ml >100,000; Status: F Test: URINE CULTURE; Value: GRAM NEG SENSI - VITEK 80; Status: F Test: URINE CULTURE; Value: Method: VIT2; Status: F Test: URINE CULTURE; Value: EXTD BRD SPCTRM BETA LACTAMASE -; Status: F Test: URINE CULTURE; Value: TRIMETHOPRIM/SULFAMETHOXAZOLE <=20 S; Status: F Test: URINE CULTURE; Value: AMPICILLIN 8 S; Status: F Test: URINE CULTURE; Value: GENTAMICIN <=1 S; Status: F Test: URINE CULTURE; Value: NITROFURANTOIN <=16 S; Status: F Test: URINE CULTURE; Value: CEFAZOLIN <=4 S; Status: F Test: URINE CULTURE; Value: LEVOFLOXACIN <=0.12 S; Status: F Test: URINE CULTURE; Value: TOBRAMYCIN <=1 S; Status: F Test: URINE CULTURE; Value: CEFTRIAXONE <=1 S; Status: F Test: URINE CULTURE; Value: CEFTAZIDIME <=1 S; Status: F Test: URINE CULTURE; Value: AMPICILLIN/SULBACTAM 4 S; Status: F Test: URINE CULTURE; Value: PIPERACILLIN/TAZOBACTAM <=4 S; Status: F Test: URINE CULTURE; Value: AZTREONAM <=1 S; Status: F Test: URINE CULTURE; Value: ERTAPENEM <=0.5 S; Status: F Test: URINE CULTURE; Value: MEROPENEM <=0.25 S; Status: F Test: URINE CULTURE; Value: TIGECYCLINE <=0.5 S; Status: F Test: URINE CULTURE; Value: CEFEPIME <=1 S; Status: F Lab Order: Basic Metabolic Profile; SPEC'M 07/22/16 18:12 Test: GLUCOSE, FASTING; Value: 244; Range: 70-105; Abnormal: Above high normal; Units: MG/DL; Status: F Test: BLOOD UREA NITROGEN; Value: 27; Range: 7-18; Abnormal: Above high normal; Units: MG/DL; Status: F Test: CREATININE FOR GFR; Value: 0.67; Range: 0.55-1.02; Units: MG/DL; Status: F Test: GLOMERULAR FILTRATION RATE; Value: > 60.0; Range: >58; Status: F Test: SODIUM LEVEL; Value: 142; Range: 136-145; Units: MEQ/L; Status: F Test: POTASSIUM SERUM; Value: 5.3; Range: 3.5-5.1; Abnormal: Above high normal; Units: MEQ/L; Status: F Test: CHLORIDE LEVEL; Value: 112; Range: 98-107; Abnormal: Above high normal; Units: MEQ/L; Status: F Test: CARBON DIOXIDE LEVEL; Value: 23; Range: 21-32; Units: MEQ/L; Status: F Test: ANION GAP; Value: 7; Range: 8-16; Abnormal: Below low normal; Units: MEQ/L; Status: F Test: CALCIUM LEVEL; Value: 8.9; Range: 8.5-10.1; Units: MG/DL; Status: F Test Note: ; Units are mL/min/1.73 m2 Chronic Kidney Disease Staging per NKF: Stage I & II GFR >=60 Normal to Mildly Decreased Stage III GFR 30-59 Moderately Decreased Stage IV GFR 15-29 Severely Decreased Stage V GFR <15 Very Little GFR Left ESRD GFR <15 on PLATE FITTER Lab Order: CBC with Diff; SPEC'M 07/22/16 18:12 Test: WHITE BLOOD COUNT; Value: 4.9; Range: 4.0-10.0; Units: K/mm3; Status: F Test: RED BLOOD COUNT; Value: 4.02; Range: 4.00-5.40; Units: M/mm3; Status: F Test: HEMOGLOBIN; Value: 13.3; Range: 12.0-16.0; Units: g/dl; Status: F Test: HEMATOCRIT; Value: 40.6; Range: 36.0-47.0; Units: %; Status: F Test: MEAN CORPUSCULAR VOLUME; Value: 101.2; Range: 80.0-96.0; Abnormal: Above high normal; Units: fl; Status: F Test: MEAN CORPUSCULAR HEMOGLOBIN; Value: 33.2; Range: 27.0-33.0; Abnormal: Above high normal; Units: pg; Status: F Test: MEAN CORPUSCULAR HGB CONC; Value: 32.8; Range: 32.0-36.5; Units: g/dl; Status: F Test: RED CELL DISTRIBUTION WIDTH; Value: 13.8; Range: 11.5-14.5; Units: %; Status: F Test: PLATELET COUNT, AUTOMATED; Value: 100; Range: 150-450; Abnormal: Below low normal; Units: k/mm3; Status: F Test: NEUTROPHILS %; Value: 66.1; Range: 36.0-66.0; Abnormal: Above high normal; Units: %; Status: F Test: LYMPH %; Value: 24.9; Range: 24.0-44.0; Units: %; Status: F Test: MONO %; Value: 4.9; Range: 0.0-5.0; Units: %; Status: F Test: EOS %; Value: 1.5; Range: 0.0-3.0; Units: %; Status: F Test: BASO %; Value: 0.9; Range: 0.0-1.0; Units: %; Status: F Test: LARGE UNSTAINED CELL %; Value: 1.6; Range: 0.0-4.0; Units: %; Status: F Test: NEUTROPHILS #; Value: 3.2; Range: 1.8-7.7; Units: K/mm3; Status: F Test: LYMPH #; Value: 1.3; Range: 1.5-4.5; Abnormal: Below low normal; Units: K/mm3; Status: F Test: MONO #; Value: 0.2; Range: 0.0-0.8; Units: K/mm3; Status: F Test: EOS #; Value: 0.1; Range: 0.0-0.50; Units: K/mm3; Status: F Test: BASO #; Value: 0.0; Range: 0.0-0.2; Units: K/mm3; Status: F Test: LARGE UNSTAINED CELL #; Value: 0.1; Range: 0.0-0.4; Units: K/mm3; Status: F Lab Order: Lipase; SPEC'M 07/22/16 18:12 Test: LIPASE; Value: 288; Range: 73-393; Units: U/L; Status: F Lab Order: Liver Profile; SPEC'M 07/22/16 18:12 Test: AST/SGOT; Value: 30; Range: 15-37; Units: U/L; Status: F Test: ALT/SGPT; Value: 21; Range: 12-78; Units: U/L; Status: F Test: ALKALINE PHOSPHATASE; Value: 85; Range: 45-117; Units: U/L; Status: F Test: BILIRUBIN,TOTAL; Value: 0.6; Range: 0.2-1.0; Units: MG/DL; Status: F Test: BILIRUBIN,DIRECT; Value: 0.2; Range: 0.0-0.2; Units: MG/DL; Status: F Test: TOTAL PROTEIN; Value: 6.3; Range: 6.4-8.2; Abnormal: Below low normal; Units: GM/DL; Status: F Test: ALBUMIN; Value: 2.8; Range: 3.2-5.2; Abnormal: Below low normal; Units: GM/DL; Status: F Test: ALBUMIN/GLOBULIN RATIO; Value: 0.80; Range: 1.00-1.93; Abnormal: Below low normal; Status: F Radiology Order: CT ABD & PELVIS: No Contrast Test: CT ABD & PELVIS: No Contrast REASON FOR EXAMINATION: Renal colic; ; HISTORY: Renal colic.; ; TECHNIQUE: Multiple axial CT images were obtained through the abdomen and pelvis without administrat; ion of oral or IV contrast material.; ; FINDINGS:; ; Correlation is made with prior study dated 05/03/2016.; ; The liver appears lobulated which suggests cirrhosis. There is no intra or extrahepatic biliary duct; al dilatation. The spleen is enlarged measuring 16 cm. 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 The pancreas is of normal contour and attenuation characteristics. The; re is no evidence of adrenal mass.; ; The kidneys are normal in size, shape and configuration. No renal or ureteral calculi are identified; . There is no hydroureter or hydronephrosis.; ; There is no evidence for appendicitis. There is no bowel wall thickening. No evidence for small or; large bowel obstruction. There is no evidence of abdominal ascites or lymphadenopathy. Small fat co; ntaining umbilical hernia is seen. No evidence of acute abdominal pathology.; ; There is no evidence of intrinsic or extrinsic bladder mass. There is no pelvic ascites or lymphaden; opathy.; ; The uterus and ovaries are atrophic.; ; Images of the lung bases show no evidence of pleural or parenchymal mass. There are no pleural effus; ions.; ; The bony structures are free of lytic or blastic lesions.; ; IMPRESSION:; 1. The liver appears lobulated which suggests cirrhosis. There is no intra or extrahepatic biliary; ductal dilatation.; 2. The spleen is enlarged measuring 16 cm. 12 mm calcified splenic aneurysm is seen.; 3. Small fat containing umbilical hernia is seen. No evidence of acute abdominal pathology.; 4. The uterus and ovaries are atrophic.; ; ; Thank you for your kind referral of this patient. We appreciate the opportunity to participate in ; is patient's care.; ; ; ; ; ; Outcome: 20:20 Discharge ordered by Provider. le 20:38 Discharge Assessment: Patient awake, alert and oriented x 3. No cognitive and/or dsf functional deficits noted. Patient verbalized understanding of disposition instructions. patient administered narcotics - no. The following High Risk Discharge criteria are identified: None. Discharged to home ambulatory. Condition: stable. Discharge instructions given to patient, Instructed on discharge instructions, follow up and referral plans. medication usage, no driving heavy equipment, Demonstrated understanding of instructions, medications, Pt was receptive of discharge instructions/ teaching. CT Study completed. Property sent home with patient. 20:38 Patient left the ED. dsf Signatures: Dispatcher [employer] EDPedro Pablo Rodriguez, RN RN Osiris Staples RN RN Olga Catherine, SCHEDULE ANALYST SCHEDULE ANALYST jam1 Brandi Young, Reg Reg gb Mayra Stewart, FOOD TECHNOLOGY TEACHER FOOD TECHNOLOGY TEACHER Sylvia GarnerRN RN dsf Rocio Mclaughlin Gainslee gr2 Navneet Castañeda, SCHEDULE ANALYST SCHEDULE ANALYST Britta De La Rosab Marcie Warren RN kc3 Chart Complete MTDD
--- NOTE | 2016-07-24 21:39 | EDDOCDS ---
Physician Documentation [facility] Name: Hina Devi Age: 50 yrs Sex: Female : 1965 Arrival Date: 07/22/2016 Time: 15:32 Bed I6 Private MD: Woodrow Tan MD Disposition: 07/22 20:24 Critical Care: Critical care not applicable. le Disposition: 07/22/16 20:20 Discharged to Home/Self Care. Impression: Abdominal and pelvic pain, Splenomegaly, not elsewhere classified, Other and unspecified cirrhosis of liver - possible, Hyperkalemia. - Condition is Stable. - Discharge Instructions: Abdominal Pain, Adult, Enlarged Spleen, Hyperkalemia. - Medication Reconciliation, Local Pharmacy Hours form. - Follow up: Woodrow Tan; When: Call to arrange an appointment; Reason: Recheck today's complaints, Continuance of care. - Problem is an acute exacerbation. - Symptoms have improved. - Notes: Keep hydrated Return to the ED for any further concerns Historical: - Allergies: Avandia (Swelling); Cardizem CD; Glucophage (Swelling); Lisinopril; Pyridium (Swelling); - Home Meds: 1. Bentyl 10 mg Oral cap 1 cap 4 times per day (Last dose: 07/22/2016 08:00) 2. carvedilol 6.25 mg oral tab 2 times per day (Last dose: 07/22/2016 08:00) 3. clonazepam 0.5 mg oral tab hs (Last dose: 07/21/2016 20:00) 4. Lasix 80 mg oral tab 1 tab prn 5. losartan 50 mg oral tab 1 tab 2 times per day (Last dose: 07/22/2016 08:00) 6. DuoNeb Inhl as needed (Last dose: 07/22/2016) 7. Neurontin 300 mg Oral cap 3 times per day (Last dose: 07/22/2016) 8. Toujeo 40 units Q AM (Last dose: 07/22/2016) 9. Hum R sliding scale AC 10. omeprazole 20 mg Oral cpDR 1 cap once daily (Last dose: 07/22/2016) 11. ropinirole 4 mg oral tab hs (Last dose: 07/21/2016 20:00) 12. tizanidine 2 mg oral tab as needed 13. Wellbutrin XL 150 mg Oral Tb24 1 tab once daily (Last dose: 07/22/2016 08:00) - PMHx: Colitis; COPD; Diabetes - IDDM: controlled; Diabetes - NIDDM: controlled; GERD; Hypertension; mild renal failure; Pneumonia; PVC's; Shingles; - PSHx: Left leg abscess removed; ; Right archiles tendon repair; Right breast lumectomy; Cholecystectomy; Endometriol ablation; Sinus surgery to repair deviated septum; - Social history: Smoking status: Patient uses tobacco products, light tobacco smoker. No barriers to communication noted, The patient speaks fluent Maori. - Family history: Not pertinent. - : The pt / caregiver states he / she is not on anticoagulants. Home medication list is obtained from the patient. - Exposure Risk Screening:: None identified. 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 0 in. (182.88 cm) (R); Pain 9/10; 18:42 BP 173 / 78; Pulse 82; Resp 20; Temp 98.9; Pulse Ox 97% ; Pain 7/10; jam1 18:50 Pain 7/10; dsf 19:29 BP 172 / 72; Pulse 84; Resp 18; Temp 98.6; Pulse Ox 96% ; ajs 19:32 Pain 8/10; dsf 15:34 Body Mass Index 44.76 (149.69 kg, 182.88 cm) gr2 19:29 PT WOULD NOT GIVE PAIN A NUMBER JUST STATES SHE FELT LIKE SHE WAS GETTING WORSE ajs MDM: 15:45 Urinalysis Ordered. EDMS 15:45 Urine Culture Ordered. EDMS 17:39 NS 0.9% 1000 ml IV at bolus once ordered. le 17:39 NS 0.9% 1000 ml IV at 100 mL/hr continuous ordered. le 17:39 Ondansetron 4 mg IVP once ordered. le 17:39 morphine 4 mg IVP every 30 minutes; Document pain score/vitals after each dose (Hold if le SBP < 90mmHg) x2 ordered. 17:39 IV Saline Lock ordered. le 17:39 Undress patient appropriately for examination ordered. le 17:41 Basic Metabolic Profile Ordered. EDMS 17:41 CBC with Diff Ordered. EDMS 17:41 Lipase Ordered. EDMS 17:41 Liver Profile Ordered. EDMS 17:41 CT ABD & PELVIS: No Contrast Ordered. EDMS 17:41 NOTHING BY MOUTH+DIET ordered. EDMS 18:14 Financial registration complete. gjb 18:22 [facility] Payment Agreement was scanned into [employer] and attached to record. gjb 18:42 Urinalysis Reviewed. le 18:42 CBC with Diff Reviewed. le 20:11 Basic Metabolic Profile Reviewed. le 20:11 Liver Profile Reviewed. le 20:11 Lipase Reviewed. le 20:11 CT ABD & PELVIS: No Contrast Reviewed. le 20:13 Polystyrene Suspension 30 grams PO once ordered. le 20:13 HYDROcodone-acetaminophen 4 pack- 5 mg-325 mg 1 packets PO Per package directions; le Dispense with patient. 1 po q4h prn for pain ordered. 07/23 11:27 T-Sheet-- Draft Copy was scanned into [employer] and attached to record. gb 14:43 ED course: dr tan faxed formal report of ct abd/p for fu mlg. ml Administered Medications: 07/22 18:25 Drug: NS 0.9% 1000 ml [sodium chloride 0.9 % injection solution] Route: IV; Rate: dsf bolus; Site: right antecubital; 19:40 Follow up: IV Status: Completed infusion; IV Intake: 1000ml dsf 18:25 Drug: Ondansetron 4 mg [ondansetron HCl 2 mg/mL intravenous solution (2 mL)] Route: dsf IVP; Site: right antecubital; 18:25 Drug: morphine 4 mg [morphine 4 mg/mL intravenous cartridge (1 mL)] Route: IVP; Site: dsf right antecubital; 18:50 Follow up: Pain 7/10 Adult; see charted VS dsf 18:54 Drug: morphine 4 mg [morphine 4 mg/mL intravenous cartridge (1 mL)] Route: IVP; Site: dsf right antecubital; 19:32 Follow up: Pain 8/10 Adult; see charted vs dsf 19:41 Drug: NS 0.9% 1000 ml [sodium chloride 0.9 % injection solution] Route: IV; Rate: 100 dsf mL/hr; Site: right antecubital; 20:39 Follow up: IV Status: Infusion discontinued; IV Intake: 150ml dsf 20:34 Drug: Polystyrene 30 grams [sodium polystyrene sulfonate 15 gram/60 mL oral suspension dsf (120 mL)] Route: PO; 20:34 Drug: HYDROcodone-acetaminophen 4 pack- 1 packets [hydrocodone 5 mg-acetaminophen 325 dsf mg tablet (1 tabs)] {Co-Signature: [email or web address] (Marcie Warren RN).} Route: PO; Signatures: Dispatcher [employer] EDMS Julio Romo MD MD ml Greene, Daniel, RN RN dwg Brandi Young, Reg Reg gb Mayra Stewart, Sylvia Rosales RN RN dsf Beck, Gabriela gjb Kelsi Crane RN [email or web address] The chart was reviewed and I authenticate all verbal orders and agree with the evaluation and treatment provided.Attachments: 18:22 [facility] Payment Agreement [email or web address] 07/23 11:27 T-Sheet-- Draft Copy gb Chart Complete MTDD
== END 2016-07-22 20:38 | disposition home or self-care (01) ==
LOC: M ED 15:32
DX: R10.9 Unspecified abdominal pain (principal); R16.1 Splenomegaly, not elsewhere classified; E87.5 Hyperkalemia; K52.9 Noninfective gastroenteritis and colitis, unspecified; J44.9 Chronic obstructive pulmonary disease, unspecified; E11.9 Type 2 diabetes mellitus without complications; K21.9 Gastro-esophageal reflux disease without esophagitis; I12.9 Hypertensive chronic kidney disease with stage 1 through stage 4 chronic kidney disease, or unspecified chronic kidney disease; N18.9 Chronic kidney disease, unspecified; I49.3 Ventricular premature depolarization; B02.9 Zoster without complications; F17.210 Nicotine dependence, cigarettes, uncomplicated; Z79.899 Other long term (current) drug therapy; Z79.51 Long term (current) use of inhaled steroids; Z79.4 Long term (current) use of insulin; Z88.8 Allergy status to other drugs, medicaments and biological substances
CPT/HCPCS: 36415; 74176; 80048; 80076; 81001; 83690; 85025; 87088; 87186; 96361; 96374; 96375; 99284; J2405

== ENCOUNTER → 2016-07-30 | Outpatient (REF) | payer OTHER ==
[2016-07-30 17:42] LABS: MEAN CORPUSCULAR HEMOGLOBIN 34.6 pg (27.0-33.0); MEAN CORPUSCULAR HGB CONC 35.1 g/dl (32.0-36.5); MEAN CORPUSCULAR VOLUME 98.5 fl (80.0-96.0); RED CELL DISTRIBUTION WIDTH 12.8 % (11.5-14.5); WHITE BLOOD COUNT 2.8 K/mm3 (4.0-10.0)
[2016-07-30 19:46] LABS: BANDS 2 % (< 11); EOSINOPHILS 4 % (0-5)
[2016-07-30 19:47] LABS: SMUDGE CELLS 1+
== END ==
LOC: M SFHCLERA 16:18
PROVIDERS: ATTEND Family Medicine
DX: R16.1 Splenomegaly, not elsewhere classified (principal)

== ENCOUNTER 2016-08-12 20:38 | Emergency (ER) | payer OTHER ==
[2016-08-12] MEDS ORDERED: ALBUTEROL SULFATE 2.5 MG/0.5 ML INH NEB SOLN As Ordered ONE (20:53)
[2016-08-12] MEDS ORDERED: IPRATROPIUM 0.02% SOLN 0.5MG/2.5 ML NEB As Ordered ONE (20:53)
[2016-08-12 21:49] LABS: BASO % 0.3 % (0.0-1.0); EOS # 0.1 K/mm3 (0.0-0.50); EOS % 2.8 % (0.0-3.0); LARGE UNSTAINED CELL # 0.1 K/mm3 (0.0-0.4); LARGE UNSTAINED CELL % 1.7 % (0.0-4.0); LYMPH % 31.9 % (24.0-44.0); MEAN CORPUSCULAR HEMOGLOBIN 33.1 pg (27.0-33.0); MEAN CORPUSCULAR HGB CONC 34.5 g/dl (32.0-36.5); MEAN CORPUSCULAR VOLUME 96.1 fl (80.0-96.0); MONO # 0.2 K/mm3 (0.0-0.8); MONO % 4.9 % (0.0-5.0); NEUTROPHILS # 1.8 K/mm3 (1.8-7.7); NEUTROPHILS % 58.3 % (36.0-66.0); RED CELL DISTRIBUTION WIDTH 13.2 % (11.5-14.5); WHITE BLOOD COUNT 3.1 K/mm3 (4.0-10.0)
[2016-08-12 21:53] LABS: PLATELET COUNT, AUTOMATED 84 k/mm3 (150-450)
[2016-08-12 22:02] LABS: ANION GAP 9 MEQ/L (8-16); BLOOD UREA NITROGEN 31 MG/DL (7-18); CALCIUM LEVEL 8.4 MG/DL (8.5-10.1); CARBON DIOXIDE LEVEL 21 MEQ/L (21-32); CHLORIDE LEVEL 114 MEQ/L (98-107); CREATININE FOR GFR 0.84 MG/DL (0.55-1.02); GLOMERULAR FILTRATION RATE > 60.0 (>58); GLUCOSE, FASTING 270 MG/DL (70-105); POTASSIUM SERUM 4.3 MEQ/L (3.5-5.1); SODIUM LEVEL 144 MEQ/L (136-145)
[2016-08-12 22:11] LABS: ABG BASE EXCESS -6.3 (-2.0-2.0); ABG DEVICE NASAL CANN; ABG HCO3 16.7 MEQ/L (22.0-26.0); ABG PARTIAL PRESSURE CO2 26.5 mmHg (35.0-45.0); ABG STANDARD HCO3 19.4 MEQ/L (22.0-26.0); ABG TOTAL CO2 17.5 MEQ/L (22.0-29.0); ABG pH (ARTERIAL) 7.418 UNITS (7.350-7.450)
[2016-08-12 22:12] LABS: ABG PARTIAL PRESSURE O2 167.2 mmHg (75.0-100.0)
[2016-08-12] MEDS ORDERED: MORPHINE 4 MG/ML 1ML SYRINGE As Ordered ONE ×2 (22:26→22:56)
--- NOTE | 2016-08-12 23:53 | EDDOCDS ---
Nurse's Notes [facility] Name: Hina Devi Age: 50 yrs Sex: Female : 1965 Arrival Date: 08/12/2016 Time: 20:38 Bed 10 Private MD: Woodrow Tan MD Diagnosis: Acute bronchitis;Low back pain Presentation: 08/12 20:42 Presenting complaint: EMS states: per EMS pt recently diagnosed with Bronchitis with tm5 one hour of coughing at home, pt took 1 Albuterol at home with no relief, EMS gave 1 Duoneb, per EMS room air O2 sat 79%, No IV access, Vital signs 210/100 HR 92, Labored Resp before treatment. Adult Sepsis Screening: The patient does not have new or worsening altered mentation. Patient's respiratory rate is less than 22. Systolic blood pressure is greater than 100. Patient has a qSOFA score of 0- Negative Sepsis Screen. Suicide/Homicide risk assessment- the patient denies having any suicidal and/or homicidal ideations and does not present with any other emotional, behavioral or mental health complaints. Status: Patient is not a coordinator of library services or dependent. Transition of care: patient was not received from another setting of care. 20:42 Acuity: SRIKANTH Level 3 tm5 20:42 Method Of Arrival: Ambulance tm5 Triage Assessment: 20:51 General: Appears uncomfortable, Behavior is appropriate for age, cooperative. Pain: tm5 Location: back Pain currently is 10 out of 10 on a pain scale. Quality of pain is described as sharp, shooting. HIV screening NA for this visit Offered previously. The patient is triaged at the bedside. See Assessment in Nurses Notes section of ED record. The patient is triaged at the bedside. See Assessment in Nurses Notes section of ED record. Neurological: Level of Consciousness is awake, alert, Oriented to person, place, time. Respiratory: Onset: The symptoms/episode began/occurred just prior to arrival, Breath sounds are clear bilaterally. Derm: Skin is pink, warm & dry. normal. 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 aspirin 81 mg Oral chew 1 tab once daily 2. Bentyl 10 mg Oral cap 1 cap 4 times per day 3. carvedilol 6.25 mg oral tab 2 times per day 4. clonazepam 0.5 mg Oral tab HS 5. DuoNeb Inhl as needed 6. Hum R sliding scale AC 7. Lasix 80 mg Oral tab 1 tab prn 8. losartan 50 mg oral tab 1 tab 2 times per day 9. Methocarbamol Oral as needed 10. Neurontin 300 mg Oral cap 3 times per day 11. novalog 70/30 50 units in AM and 40 units in PM hasn't used in a few weeks per PCP's orders pt takes 10 units as needed per provider 12. omeprazole 20 mg Oral cpDR 1 cap once daily 13. ropinirole 4 mg oral tab HS 14. tizanidine 2 mg oral tab as needed 15. Toujeo 40 units Q AM 16. Wellbutrin XL 150 mg Oral Tb24 1 tab once daily 17. prednisolone 20 mg Oral tab once daily 18. doxycycline hyclate 100 mg Oral cap 1 cap every 12 hours - PMHx: COPD; Diabetes - IDDM: controlled; Colitis; GERD; mild renal failure; Pneumonia; PVC's; Shingles; Hypertension; Diabetes - NIDDM: controlled; - PSHx: ; - Social history: Smoking status: Patient uses tobacco products, current every day smoker. No barriers to communication noted, The patient speaks fluent Syriac. - Family history: Not pertinent. - : The pt / caregiver states he / she is not on anticoagulants. Home medication list is obtained from [employer] import data. - Exposure Risk Screening:: None identified. Screenin:54 Screening information is obtained from the patient. Fall risk: No risks identified. tm5 Assistance ADL's: requires no assistance with activities of daily living. Abuse/DV Screen: The patient / caregiver reports he/she is: not in a situation that causes fear, pain or injury. Nutritional screening: No deficits noted. Advance Directives: Currently, there is a health care proxy, her son. There is no active DNR order. home support is adequate. Assessment: 20:54 General: see triage assessment . Cardiovascular: Chest pain is denied. tm5 20:59 Respiratory: Airway is patent Respiratory effort is even, unlabored, Respiratory tm5 pattern is regular, symmetrical, Breath sounds are clear bilaterally. Reports cough that is. 21:04 Respiratory: Reports cough that is dry, hacking, persistent since about one hour ago tm5 prior to arrival. 21:27 Cardiovascular: Rhythm is sinus rhythm. tm5 23:13 Reassessment: Patient appears in no apparent distress at this time. Patient states tm5 feeling better. Patient states symptoms have improved. Cardiovascular: Rhythm is sinus rhythm No ectopy. 23:41 Reassessment: Patient appears in no apparent distress at this time. Patient states tm5 feeling better. Patient states symptoms have improved. Vital Signs: 20:51 BP 222 / 102; Pulse 79; Resp 20; Temp 97.8; Pulse Ox 98% on R/A; Weight 154.22 kg; tm5 Height 6 ft. (182.88 cm); Pain 10/10; 22:08 BP 199 / 92 (man/); Pulse 91; Resp 22; Pulse Ox 97% on R/A; Pain 10/10; tm5 23:13 BP 197 / 87; Pulse 87; Resp 22; Pulse Ox 96% on R/A; tm5 23:41 BP 189 / 92 (man/); Pulse 84; Resp 20; Temp 98.6(O); Pulse Ox 98% on R/A; Pain 8/10; tm5 20:51 Body Mass Index 46.11 (154.22 kg, 182.88 cm) tm5 Vitals: 20:51 Log In Time N/A - ambulance arrival. tm5 ED Course: 20:39 Patient visited by Navneet Castañeda PCA. mdr 20:39 Woodrow Tan is Private Physician. mdr 20:39 Patient moved to Waiting mdr 20:40 Patient moved to 10 mdr 20:42 Patient visited by Teresa Bradford RN. tm5 20:46 Triage Initiated tm5 20:50 [facility] le 20:54 Awaiting bed assignment. tm5 20:54 The patient / caregiver is instructed regarding the plan of care and ED course. Family tm5 accompanied patient. 20:59 Patient visited by Teresa Bradford RN. tm5 21:04 Patient visited by Teresa Bradford RN. tm5 21:06 Patient moved to radiology. tm5 21:16 Patient visited by Mayra Stewart FNP. le 21:16 Patient visited by Mayra Stewart FNP. le 21:26 Patient visited by Teresa Bradford RN. tm5 21:26 BLOOD CULTURES Sent. tm5 21:26 -Blood Culture Sent. tm5 21:26 Basic Metabolic Profile Sent. tm5 21: CBC with Diff Sent. tm5 21: Troponin Sent. tm5 21:27 Patient visited by Teresa Bradford RN. tm5 21:27 school bus monitor on. Pulse ox on. NIBP on. tm5 21:27 Inserted saline lock: 20 gauge in right hand and blood collected. The patient tolerated tm5 the procedure well. Labs/Blood culture drawn. 22:00 -Arterial Blood Gas Sent. jc3 22:08 [facility] Payment Agreement was scanned into [employer] and attached to record. zo 22:18 Patient visited by Teresa Bradford RN. tm5 23:13 Patient visited by Teresa Bradford RN. tm5 23:40 Patient visited by Teresa Bradford RN. tm5 23:41 Discontinued lock intact, bleeding controlled, pressure dressing applied, No tm5 redness/swelling at site. No procedures done that require assistance. 23:43 Woodrow Tan is Referral Physician. le Administered Medications: 21:20 Drug: Chlorpheniramine-Hydrocodone 1 caps [hydrocodone ER 10 mg-chlorpheniramine 8 mg tm5 12hr capsule,extend.release (1 caps)] Route: PO; 22:00 Follow up: Response: No Adverse Reaction; No Adverse Reaction, cough improved tm5 21:31 CANCELLED (Other Intervention Used): Cepacol Sensations Hydra Lozenge 1 tabs Mucous le Membrane once 22:29 Drug: morphine 4 mg [morphine 4 mg/mL intravenous cartridge (1 mL)] Route: IVP; Site: tm5 right hand; 22:33 Drug: NS 0.9% 1000 ml [sodium chloride 0.9 % intravenous solution] Route: IV; Rate: tm5 bolus; Site: right hand; 23:34 Follow up: IV Status: Completed infusion; IV Intake: 1000ml tm5 22:58 Drug: morphine 4 mg [morphine 4 mg/mL intravenous cartridge (1 mL)] Route: IVP; Site: tm5 right hand; 22:58 Follow up: Response: No Adverse Reaction; No significant change. tm5 23:35 Follow up: Response: No Adverse Reaction; Pain is decreased tm5 Intake: 23:34 IV: 1000.00ml; Total: 1000.00ml. tm5 RT: 22:01 ABG's drawn from right radial artery pressure held for 5 minutes no bleeding noted jc3 pressure bandage applied specimen sent pt. tolerated well. Order Results: Lab Order: Basic Metabolic Profile; SPEC'M 08/12/16 21:23 Test: GLUCOSE, FASTING; Value: 270; Range: 70-105; Abnormal: Above high normal; Units: MG/DL; Status: F Test: BLOOD UREA NITROGEN; Value: 31; Range: 7-18; Abnormal: Above high normal; Units: MG/DL; Status: F Test: CREATININE FOR GFR; Value: 0.84; Range: 0.55-1.02; Units: MG/DL; Status: F Test: GLOMERULAR FILTRATION RATE; Value: > 60.0; Range: >58; Status: F Test: SODIUM LEVEL; Value: 144; Range: 136-145; Units: MEQ/L; Status: F Test: POTASSIUM SERUM; Value: 4.3; Range: 3.5-5.1; Units: MEQ/L; Status: F Test: CHLORIDE LEVEL; Value: 114; Range: 98-107; Abnormal: Above high normal; Units: MEQ/L; Status: F Test: CARBON DIOXIDE LEVEL; Value: 21; Range: 21-32; Units: MEQ/L; Status: F Test: ANION GAP; Value: 9; Range: 8-16; Units: MEQ/L; Status: F Test: CALCIUM LEVEL; Value: 8.4; Range: 8.5-10.1; Abnormal: Below low normal; Units: MG/DL; Status: F Test Note: ; Units are mL/min/1.73 m2 Chronic Kidney Disease Staging per NKF: Stage I & II GFR >=60 Normal to Mildly Decreased Stage III GFR 30-59 Moderately Decreased Stage IV GFR 15-29 Severely Decreased Stage V GFR <15 Very Little GFR Left ESRD GFR <15 on BIT SHAVER Lab Order: CBC with Diff; SPEC'M 08/12/16 21:23 Test: WHITE BLOOD COUNT; Value: 3.1; Range: 4.0-10.0; Abnormal: Below low normal; Units: K/mm3; Status: F Test: RED BLOOD COUNT; Value: 3.67; Range: 4.00-5.40; Abnormal: Below low normal; Units: M/mm3; Status: F Test: HEMOGLOBIN; Value: 12.1; Range: 12.0-16.0; Units: g/dl; Status: F Test: HEMATOCRIT; Value: 35.2; Range: 36.0-47.0; Abnormal: Below low normal; Units: %; Status: F Test: MEAN CORPUSCULAR VOLUME; Value: 96.1; Range: 80.0-96.0; Abnormal: Above high normal; Units: fl; Status: F Test: MEAN CORPUSCULAR HEMOGLOBIN; Value: 33.1; Range: 27.0-33.0; Abnormal: Above high normal; Units: pg; Status: F Test: MEAN CORPUSCULAR HGB CONC; Value: 34.5; Range: 32.0-36.5; Units: g/dl; Status: F Test: RED CELL DISTRIBUTION WIDTH; Value: 13.2; Range: 11.5-14.5; Units: %; Status: F Test: PLATELET COUNT, AUTOMATED; Value: 84; Range: 150-450; Abnormal: Below low normal; Units: k/mm3; Status: F Test: NEUTROPHILS %; Value: 58.3; Range: 36.0-66.0; Units: %; Status: F Test: LYMPH %; Value: 31.9; Range: 24.0-44.0; Units: %; Status: F Test: MONO %; Value: 4.9; Range: 0.0-5.0; Units: %; Status: F Test: EOS %; Value: 2.8; Range: 0.0-3.0; Units: %; Status: F Test: BASO %; Value: 0.3; Range: 0.0-1.0; Units: %; Status: F Test: LARGE UNSTAINED CELL %; Value: 1.7; Range: 0.0-4.0; Units: %; Status: F Test: NEUTROPHILS #; Value: 1.8; Range: 1.8-7.7; Units: K/mm3; Status: F Test: LYMPH #; Value: 1.0; Range: 1.5-4.5; Abnormal: Below low normal; Units: K/mm3; Status: F Test: MONO #; Value: 0.2; Range: 0.0-0.8; Units: K/mm3; Status: F Test: EOS #; Value: 0.1; Range: 0.0-0.50; Units: K/mm3; Status: F Test: BASO #; Value: 0.0; Range: 0.0-0.2; Units: K/mm3; Status: F Test: LARGE UNSTAINED CELL #; Value: 0.1; Range: 0.0-0.4; Units: K/mm3; Status: F Lab Order: Troponin; SPEC'M 08/12/16 21:23 Test: TROPONIN I; Value: < 0.02; Range: < 0.10; Units: NG/ML; Status: F Test Note: ; Troponin I Reference Interval for [employer] LOCI: 99th Percentile= 0.00-0.045 ng/ml Risk Stratification: <= 0.10 ng/ml Decreased Risk for Adverse Clinical Events. 0.10-1.50 ng/ml Increased Risk for Adverse Clinical Events. Evaluation of additional criterion and/or repeat testing in 2-6 hours is suggested to rule out myocardial damage. >= 1.50 ng/ml Indicative of Myocardial Injury. Lab Order: -Arterial Blood Gas; SPEC'M 08/12/16 21:57 Test: ABG pH (ARTERIAL); Value: 7.418; Range: 7.350-7.450; Units: UNITS; Status: F Test: ABG PARTIAL PRESSURE CO2; Value: 26.5; Range: 35.0-45.0; Abnormal: Below low normal; Units: mmHg; Status: F Test: ABG PARTIAL PRESSURE O2; Value: 167.2; Range: 75.0-100.0; Abnormal: Above high normal; Units: mmHg; Status: F Test: ABG TOTAL CO2; Value: 17.5; Range: 22.0-29.0; Abnormal: Below low normal; Units: MEQ/L; Status: F Test: ABG HCO3; Value: 16.7; Range: 22.0-26.0; Abnormal: Below low normal; Units: MEQ/L; Status: F Test: ABG BASE EXCESS; Value: -6.3; Range: -2.0-2.0; Abnormal: Below low normal; Status: F Test: ABG STANDARD HCO3; Value: 19.4; Range: 22.0-26.0; Abnormal: Below low normal; Units: MEQ/L; Status: F Test: ABG O2 SATURATION; Value: 99.2; Range: 95.0-99.0; Abnormal: Above high normal; Units: %; Status: F Test: ABG DEVICE; Value: NASAL ROSHNI; Status: F Test Note: ; GIANT AIR BUBBLE AT TOP OF SYRINGE Outcome: 23:43 Discharge ordered by Provider. le 23:52 Discharge Assessment: Patient awake, alert and oriented x 3. No cognitive and/or tm5 functional deficits noted. Patient verbalized understanding of disposition instructions. patient administered narcotics - yes. Pt provided with safe discharge. The following High Risk Discharge criteria are identified: None. Discharged to home ambulatory, with family. Condition: good Condition: stable. Discharge instructions given to patient, Instructed on discharge instructions, follow up and referral plans. medication usage, no driving heavy equipment, Demonstrated understanding of instructions, medications, Pt was receptive of discharge instructions/ teaching. Prescriptions given X 1. No special radiology studies were completed. Property :Personal belongings accompany Pt. 23:53 Patient left the ED. tm5 Signatures: Leonardo Izaguirre Lisa, ARTS EDUCATION TEACHER ARTS EDUCATION TEACHER Teddy Springer [email or web address] Navneet Castañeda, BETY MOTORCYCLE MAKER Teresa Parekh,RN RN tm5 MTDD
--- NOTE | 2016-08-12 23:53 | EDDOCDS ---
Physician Documentation [facility] Name: Hina Devi Age: 50 yrs Sex: Female : 1965 Arrival Date: 08/12/2016 Time: 20:38 Bed 10 Private MD: Woodrow Tan MD Disposition: 08/12/16 23:43 Discharged to Home/Self Care. Impression: Acute bronchitis, Low back pain. - Condition is Stable. - Discharge Instructions: Acute Bronchitis, Back Pain, Adult. - Prescriptions for benzonatate 200 mg Oral Capsule - take 1 capsule by ORAL route 3 times per day As needed; 30 capsule. - Medication Reconciliation, Local Pharmacy Hours form. - Follow up: Woodrow Tan; When: Call to arrange an appointment; Reason: Recheck today's complaints, Continuance of care. - Problem is new. - Symptoms have improved. - Notes: Keep hydrated I suggest sucking on cough drops to help decrease the irritation at the back of your throat Continue to use the medications prescribed to you by Dr Tan Return to the ED for fever or worsening shortness of breath Historical: - Allergies: Avandia (Swelling); Cardizem CD; Glucophage (Swelling); Lisinopril; Pyridium (Swelling); - Home Meds: 1. aspirin 81 mg Oral chew 1 tab once daily 2. Bentyl 10 mg Oral cap 1 cap 4 times per day 3. carvedilol 6.25 mg oral tab 2 times per day 4. clonazepam 0.5 mg Oral tab HS 5. DuoNeb Inhl as needed 6. Hum R sliding scale AC 7. Lasix 80 mg Oral tab 1 tab prn 8. losartan 50 mg oral tab 1 tab 2 times per day 9. Methocarbamol Oral as needed 10. Neurontin 300 mg Oral cap 3 times per day 11. novalog 70/30 50 units in AM and 40 units in PM hasn't used in a few weeks per PCP's orders pt takes 10 units as needed per provider 12. omeprazole 20 mg Oral cpDR 1 cap once daily 13. ropinirole 4 mg oral tab HS 14. tizanidine 2 mg oral tab as needed 15. Toujeo 40 units Q AM 16. Wellbutrin XL 150 mg Oral Tb24 1 tab once daily 17. prednisolone 20 mg Oral tab once daily 18. doxycycline hyclate 100 mg Oral cap 1 cap every 12 hours - PMHx: COPD; Diabetes - IDDM: controlled; Colitis; GERD; mild renal failure; Pneumonia; PVC's; Shingles; Hypertension; Diabetes - NIDDM: controlled; - PSHx: ; - Social history: Smoking status: Patient uses tobacco products, current every day smoker. No barriers to communication noted, The patient speaks fluent Citizen Of [place]. - Family history: Not pertinent. - : The pt / caregiver states he / she is not on anticoagulants. Home medication list is obtained from [employer] import data. - Exposure Risk Screening:: None identified. ACRYLIC FABRICATOR: 08/12 20:51 LMP N/A - Uterine ablation tm5 Vital Signs: 20:51 BP 222 / 102; Pulse 79; Resp 20; Temp 97.8; Pulse Ox 98% on R/A; Weight 154.22 kg / 340 tm5 lbs; Height 6 ft. (182.88 cm); Pain 10/10; 22:08 BP 199 / 92 (man/); Pulse 91; Resp 22; Pulse Ox 97% on R/A; Pain 10/10; tm5 23:13 BP 197 / 87; Pulse 87; Resp 22; Pulse Ox 96% on R/A; tm5 23:41 BP 189 / 92 (man/); Pulse 84; Resp 20; Temp 98.6(O); Pulse Ox 98% on R/A; Pain 8/10; tm5 20:51 Body Mass Index 46.11 (154.22 kg, 182.88 cm) tm5 MDM: 20:52 Chest, 2 View (pa\E\lat) Ordered. EDMS 21:05 -Blood Culture (Adults Only), peripheral from different site, or from device/port/PICC le etc. if present ordered. 21:05 Seo Marketing Specialist/Pulse Ox/q 15 min VS ordered. le 21:05 IV Saline Lock ordered. le 21:05 Rhythm Strip to chart ordered. le 21:05 Chlorpheniramine-Hydrocodone Extended Release 12 hour Capsule 8 mg-10 mg 1 caps PO once le ordered. 21:06 Basic Metabolic Profile Ordered. EDMS 21:06 CBC with Diff Ordered. EDMS 21:07 Troponin Ordered. EDMS 21:07 -Blood Culture Ordered. EDMS 21:07 -Blood Culture (Adults Only), peripheral from different site, or from device/port/PICC mdr etc. if present complete. 21:08 BLOOD CULTURES Ordered. EDMS 21:22 Call Respiratory ordered. le 21:23 -Arterial Blood Gas Ordered. EDMS 21:25 Call Respiratory complete. mdr 21:36 Misc. Nursing Order ordered. le 21:57 Financial registration complete. zo 22:08 [facility] Payment Agreement was scanned into [email or web address] and attached to record. zo 22:17 morphine 4 mg IVP every 15 minutes; Document pain score/vitals after each dose (Hold if le SBP < 90mmHg) x2 ordered. 22:26 Basic Metabolic Profile Reviewed. le 22:26 CBC with Diff Reviewed. le 22:26 -Arterial Blood Gas Reviewed. le 22:26 Troponin Reviewed. le 22:27 NS 0.9% 1000 ml IV at bolus once ordered. le Administered Medications: 21:20 Drug: Chlorpheniramine-Hydrocodone 1 caps [hydrocodone ER 10 mg-chlorpheniramine 8 mg tm5 12hr capsule,extend.release (1 caps)] Route: PO; 22:00 Follow up: Response: No Adverse Reaction; No Adverse Reaction, cough improved tm5 21:31 CANCELLED (Other Intervention Used): Cepacol Sensations Hydra Lozenge 1 tabs Mucous le Membrane once 22:29 Drug: morphine 4 mg [morphine 4 mg/mL intravenous cartridge (1 mL)] Route: IVP; Site: tm5 right hand; 22:33 Drug: NS 0.9% 1000 ml [sodium chloride 0.9 % intravenous solution] Route: IV; Rate: tm5 bolus; Site: right hand; 23:34 Follow up: IV Status: Completed infusion; IV Intake: 1000ml tm5 22:58 Drug: morphine 4 mg [morphine 4 mg/mL intravenous cartridge (1 mL)] Route: IVP; Site: tm5 right hand; 22:58 Follow up: Response: No Adverse Reaction; No significant change. tm5 23:35 Follow up: Response: No Adverse Reaction; Pain is decreased tm5 Signatures: Dispatcher [employer] EDMS Leonardo Izaguirre Lisa, DOCUMENT DESIGN SPECIALIST DOCUMENT DESIGN SPECIALIST Navneet Ramos, CORE WORKER CORE WORKER Teresa Parekh,ISABELLA RN tm5 The chart was reviewed and I authenticate all verbal orders and agree with the evaluation and treatment provided.Corrections: (The following items were deleted from the chart) : 21:17 Cepacol Sensations Hydra Lozenge 1 tabs Mucous Membrane once ordered. le le : 21:30 Cepacol Sensations Hydra Lozenge 1 tabs Mucous Membrane once ordered. le le 23:46 22:17 URINALYSIS+LAB ordered. EDMS EDMS Attachments: 22:08 [facility] Payment Agreement zo MTDD
--- NOTE | 2016-08-13 02:39 | REP ---
Clinical: Acute cough and shortness of breath . Comparison: 03/22/2016 . Technique: PA and lateral. Findings: The mediastinum and cardiac silhouette are normal. The lung go are clear and without acute consolidation, effusion, or pneumothorax. The skeletal structures are intact and normal. Impression: 1. No acute cardiopulmonary process. Signed by Edward Schmidt MD 08/13/2016 02:31 A
--- NOTE | 2016-08-15 00:54 | EDDOCDS ---
Nurse's Notes [facility] Name: Hina Devi Age: 50 yrs Sex: Female : 1965 Arrival Date: 08/12/2016 Time: 20:38 Bed 10 Private MD: Woodrow Tan MD Diagnosis: Acute bronchitis;Low back pain Presentation: 08/12 20:42 Presenting complaint: EMS states: per EMS pt recently diagnosed with Bronchitis with tm5 one hour of coughing at home, pt took 1 Albuterol at home with no relief, EMS gave 1 Duoneb, per EMS room air O2 sat 79%, No IV access, Vital signs 210/100 HR 92, Labored Resp before treatment. Adult Sepsis Screening: The patient does not have new or worsening altered mentation. Patient's respiratory rate is less than 22. Systolic blood pressure is greater than 100. Patient has a qSOFA score of 0- Negative Sepsis Screen. Suicide/Homicide risk assessment- the patient denies having any suicidal and/or homicidal ideations and does not present with any other emotional, behavioral or mental health complaints. Status: Patient is not a regional extension service specialist or dependent. Transition of care: patient was not received from another setting of care. 20:42 Acuity: SRIKANTH Level 3 tm5 20:42 Method Of Arrival: Ambulance tm5 Triage Assessment: 20:51 General: Appears uncomfortable, Behavior is appropriate for age, cooperative. Pain: tm5 Location: back Pain currently is 10 out of 10 on a pain scale. Quality of pain is described as sharp, shooting. HIV screening NA for this visit Offered previously. The patient is triaged at the bedside. See Assessment in Nurses Notes section of ED record. The patient is triaged at the bedside. See Assessment in Nurses Notes section of ED record. Neurological: Level of Consciousness is awake, alert, Oriented to person, place, time. Respiratory: Onset: The symptoms/episode began/occurred just prior to arrival, Breath sounds are clear bilaterally. Derm: Skin is pink, warm & dry. normal. APPLIED PSYCHOLOGY CHAIR: 20:51 LMP N/A - Uterine ablation tm5 Historical: - Allergies: Avandia (Swelling); Cardizem CD; Glucophage (Swelling); Lisinopril; Pyridium (Swelling); - Home Meds: 1. aspirin 81 mg Oral chew 1 tab once daily 2. Bentyl 10 mg Oral cap 1 cap 4 times per day 3. carvedilol 6.25 mg oral tab 2 times per day 4. clonazepam 0.5 mg Oral tab HS 5. DuoNeb Inhl as needed 6. Hum R sliding scale AC 7. Lasix 80 mg Oral tab 1 tab prn 8. losartan 50 mg oral tab 1 tab 2 times per day 9. Methocarbamol Oral as needed 10. Neurontin 300 mg Oral cap 3 times per day 11. novalog 70/30 50 units in AM and 40 units in PM hasn't used in a few weeks per PCP's orders pt takes 10 units as needed per provider 12. omeprazole 20 mg Oral cpDR 1 cap once daily 13. ropinirole 4 mg oral tab HS 14. tizanidine 2 mg oral tab as needed 15. Toujeo 40 units Q AM 16. Wellbutrin XL 150 mg Oral Tb24 1 tab once daily 17. prednisolone 20 mg Oral tab once daily 18. doxycycline hyclate 100 mg Oral cap 1 cap every 12 hours - PMHx: COPD; Diabetes - IDDM: controlled; Colitis; GERD; mild renal failure; Pneumonia; PVC's; Shingles; Hypertension; Diabetes - NIDDM: controlled; - PSHx: ; - Social history: Smoking status: Patient uses tobacco products, current every day smoker. No barriers to communication noted, The patient speaks fluent Mongolian. - Family history: Not pertinent. - : The pt / caregiver states he / she is not on anticoagulants. Home medication list is obtained from [employer] import data. - Exposure Risk Screening:: None identified. Screenin:54 Screening information is obtained from the patient. Fall risk: No risks identified. tm5 Assistance ADL's: requires no assistance with activities of daily living. Abuse/DV Screen: The patient / caregiver reports he/she is: not in a situation that causes fear, pain or injury. Nutritional screening: No deficits noted. Advance Directives: Currently, there is a health care proxy, her son. There is no active DNR order. home support is adequate. Assessment: 20:54 General: see triage assessment . Cardiovascular: Chest pain is denied. tm5 20:59 Respiratory: Airway is patent Respiratory effort is even, unlabored, Respiratory tm5 pattern is regular, symmetrical, Breath sounds are clear bilaterally. Reports cough that is. 21:04 Respiratory: Reports cough that is dry, hacking, persistent since about one hour ago tm5 prior to arrival. 21:27 Cardiovascular: Rhythm is sinus rhythm. tm5 23:13 Reassessment: Patient appears in no apparent distress at this time. Patient states tm5 feeling better. Patient states symptoms have improved. Cardiovascular: Rhythm is sinus rhythm No ectopy. 23:41 Reassessment: Patient appears in no apparent distress at this time. Patient states tm5 feeling better. Patient states symptoms have improved. Vital Signs: 20:51 BP 222 / 102; Pulse 79; Resp 20; Temp 97.8; Pulse Ox 98% on R/A; Weight 154.22 kg; tm5 Height 6 ft. (182.88 cm); Pain 10/10; 22:08 BP 199 / 92 (man/); Pulse 91; Resp 22; Pulse Ox 97% on R/A; Pain 10/10; tm5 23:13 BP 197 / 87; Pulse 87; Resp 22; Pulse Ox 96% on R/A; tm5 23:41 BP 189 / 92 (man/); Pulse 84; Resp 20; Temp 98.6(O); Pulse Ox 98% on R/A; Pain 8/10; tm5 20:51 Body Mass Index 46.11 (154.22 kg, 182.88 cm) tm5 Vitals: 20:51 Log In Time N/A - ambulance arrival. tm5 ED Course: 20:39 Patient visited by Navneet Castañeda PCA. mdr 20:39 Woodrow Tan is Private Physician. mdr 20:39 Patient moved to Waiting mdr 20:40 Patient moved to 10 mdr 20:42 Patient visited by Teresa Bradford RN. tm5 20:46 Triage Initiated tm5 20:50 [facility] le 20:54 Awaiting bed assignment. tm5 20:54 The patient / caregiver is instructed regarding the plan of care and ED course. Family tm5 accompanied patient. 20:59 Patient visited by Teresa Bradford RN. tm5 21:04 Patient visited by Teresa Bradford RN. tm5 21:06 Patient moved to radiology. tm5 21:16 Patient visited by Mayra Stewart FNP. le 21:16 Patient visited by Mayra Stewart FNP. le 21:26 Patient visited by Teresa Bradford RN. tm5 21:26 BLOOD CULTURES Sent. tm5 21:26 -Blood Culture Sent. tm5 21:26 Basic Metabolic Profile Sent. tm5 21: CBC with Diff Sent. tm5 21: Troponin Sent. tm5 21:27 Patient visited by Teresa Bradford RN. tm5 21:27 teletypesetter monitor on. Pulse ox on. NIBP on. tm5 21:27 Inserted saline lock: 20 gauge in right hand and blood collected. The patient tolerated tm5 the procedure well. Labs/Blood culture drawn. 22:00 -Arterial Blood Gas Sent. jc3 22:08 [facility] [place] Payment Agreement was scanned into [employer] and attached to record. zo 22:18 Patient visited by Teresa Bradford RN. tm5 23:13 Patient visited by Teresa Bradford RN. tm5 23:40 Patient visited by Teresa Bradford RN. tm5 23:41 Discontinued lock intact, bleeding controlled, pressure dressing applied, No tm5 redness/swelling at site. No procedures done that require assistance. 23:43 Woodrow Tan is Referral Physician. le 08/13 03:20 Chest, 2 View (pa\E\lat) Returned. EDMS 12:02 T-Sheet-- Draft Copy was scanned into [employer] and attached to record. gb Administered Medications: 02 21:20 Drug: Chlorpheniramine-Hydrocodone 1 caps [hydrocodone ER 10 mg-chlorpheniramine 8 mg tm5 12hr capsule,extend.release (1 caps)] Route: PO; 22:00 Follow up: Response: No Adverse Reaction; No Adverse Reaction, cough improved tm5 21:31 CANCELLED (Other Intervention Used): Cepacol Sensations Hydra Lozenge 1 tabs Mucous le Membrane once 22:29 Drug: morphine 4 mg [morphine 4 mg/mL intravenous cartridge (1 mL)] Route: IVP; Site: tm5 right hand; 22:33 Drug: NS 0.9% 1000 ml [sodium chloride 0.9 % intravenous solution] Route: IV; Rate: tm5 bolus; Site: right hand; 23:34 Follow up: IV Status: Completed infusion; IV Intake: 1000ml tm5 22:58 Drug: morphine 4 mg [morphine 4 mg/mL intravenous cartridge (1 mL)] Route: IVP; Site: tm5 right hand; 22:58 Follow up: Response: No Adverse Reaction; No significant change. tm5 23:35 Follow up: Response: No Adverse Reaction; Pain is decreased tm5 Intake: 23:34 IV: 1000.00ml; Total: 1000.00ml. tm5 RT: 22:01 ABG's drawn from right radial artery pressure held for 5 minutes no bleeding noted jc3 pressure bandage applied specimen sent pt. tolerated well. Order Results: Lab Order: -Blood Culture; SPEC'M 08/12/16 21:23 Test: BLOOD CULTURE; Value: No growth after 24 hours . All specimens observed; Status: F Test: BLOOD CULTURE; Value: for 5 days. Results final at that time.; Status: F Test: BLOOD CULTURE; Value: No Growth after 48 hours. All Specimens observed; Status: F Test: BLOOD CULTURE; Value: for 7 days. Results final at that time.; Status: F Lab Order: Basic Metabolic Profile; SPEC'M 08/12/16 21:23 Test: GLUCOSE, FASTING; Value: 270; Range: 70-105; Abnormal: Above high normal; Units: MG/DL; Status: F Test: BLOOD UREA NITROGEN; Value: 31; Range: 7-18; Abnormal: Above high normal; Units: MG/DL; Status: F Test: CREATININE FOR GFR; Value: 0.84; Range: 0.55-1.02; Units: MG/DL; Status: F Test: GLOMERULAR FILTRATION RATE; Value: > 60.0; Range: >58; Status: F Test: SODIUM LEVEL; Value: 144; Range: 136-145; Units: MEQ/L; Status: F Test: POTASSIUM SERUM; Value: 4.3; Range: 3.5-5.1; Units: MEQ/L; Status: F Test: CHLORIDE LEVEL; Value: 114; Range: 98-107; Abnormal: Above high normal; Units: MEQ/L; Status: F Test: CARBON DIOXIDE LEVEL; Value: 21; Range: 21-32; Units: MEQ/L; Status: F Test: ANION GAP; Value: 9; Range: 8-16; Units: MEQ/L; Status: F Test: CALCIUM LEVEL; Value: 8.4; Range: 8.5-10.1; Abnormal: Below low normal; Units: MG/DL; Status: F Test Note: ; Units are mL/min/1.73 m2 Chronic Kidney Disease Staging per NKF: Stage I & II GFR >=60 Normal to Mildly Decreased Stage III GFR 30-59 Moderately Decreased Stage IV GFR 15-29 Severely Decreased Stage V GFR <15 Very Little GFR Left ESRD GFR <15 on [facility] TIER Lab Order: CBC with Diff; SHEA'M 08/12/16 21:23 Test: WHITE BLOOD COUNT; Value: 3.1; Range: 4.0-10.0; Abnormal: Below low normal; Units: K/mm3; Status: F Test: RED BLOOD COUNT; Value: 3.67; Range: 4.00-5.40; Abnormal: Below low normal; Units: M/mm3; Status: F Test: HEMOGLOBIN; Value: 12.1; Range: 12.0-16.0; Units: g/dl; Status: F Test: HEMATOCRIT; Value: 35.2; Range: 36.0-47.0; Abnormal: Below low normal; Units: %; Status: F Test: MEAN CORPUSCULAR VOLUME; Value: 96.1; Range: 80.0-96.0; Abnormal: Above high normal; Units: fl; Status: F Test: MEAN CORPUSCULAR HEMOGLOBIN; Value: 33.1; Range: 27.0-33.0; Abnormal: Above high normal; Units: pg; Status: F Test: MEAN CORPUSCULAR HGB CONC; Value: 34.5; Range: 32.0-36.5; Units: g/dl; Status: F Test: RED CELL DISTRIBUTION WIDTH; Value: 13.2; Range: 11.5-14.5; Units: %; Status: F Test: PLATELET COUNT, AUTOMATED; Value: 84; Range: 150-450; Abnormal: Below low normal; Units: k/mm3; Status: F Test: NEUTROPHILS %; Value: 58.3; Range: 36.0-66.0; Units: %; Status: F Test: LYMPH %; Value: 31.9; Range: 24.0-44.0; Units: %; Status: F Test: MONO %; Value: 4.9; Range: 0.0-5.0; Units: %; Status: F Test: EOS %; Value: 2.8; Range: 0.0-3.0; Units: %; Status: F Test: BASO %; Value: 0.3; Range: 0.0-1.0; Units: %; Status: F Test: LARGE UNSTAINED CELL %; Value: 1.7; Range: 0.0-4.0; Units: %; Status: F Test: NEUTROPHILS #; Value: 1.8; Range: 1.8-7.7; Units: K/mm3; Status: F Test: LYMPH #; Value: 1.0; Range: 1.5-4.5; Abnormal: Below low normal; Units: K/mm3; Status: F Test: MONO #; Value: 0.2; Range: 0.0-0.8; Units: K/mm3; Status: F Test: EOS #; Value: 0.1; Range: 0.0-0.50; Units: K/mm3; Status: F Test: BASO #; Value: 0.0; Range: 0.0-0.2; Units: K/mm3; Status: F Test: LARGE UNSTAINED CELL #; Value: 0.1; Range: 0.0-0.4; Units: K/mm3; Status: F Lab Order: Troponin; SPEC'M 08/12/16 21:23 Test: TROPONIN I; Value: < 0.02; Range: < 0.10; Units: NG/ML; Status: F Test Note: ; Troponin I Reference Interval for [employer] LOCI: 99th Percentile= 0.00-0.045 ng/ml Risk Stratification: <= 0.10 ng/ml Decreased Risk for Adverse Clinical Events. 0.10-1.50 ng/ml Increased Risk for Adverse Clinical Events. Evaluation of additional criterion and/or repeat testing in 2-6 hours is suggested to rule out myocardial damage. >= 1.50 ng/ml Indicative of Myocardial Injury. Lab Order: BLOOD CULTURES; SPEC'M 08/12/16 21:23 Test: BLOOD CULTURE; Value: No growth after 24 hours . All specimens observed; Status: F Test: BLOOD CULTURE; Value: for 5 days. Results final at that time.; Status: F Test: BLOOD CULTURE; Value: No Growth after 48 hours. All Specimens observed; Status: F Test: BLOOD CULTURE; Value: for 7 days. Results final at that time.; Status: F Lab Order: -Arterial Blood Gas; SPEC'M 08/12/16 21:57 Test: ABG pH (ARTERIAL); Value: 7.418; Range: 7.350-7.450; Units: UNITS; Status: F Test: ABG PARTIAL PRESSURE CO2; Value: 26.5; Range: 35.0-45.0; Abnormal: Below low normal; Units: mmHg; Status: F Test: ABG PARTIAL PRESSURE O2; Value: 167.2; Range: 75.0-100.0; Abnormal: Above high normal; Units: mmHg; Status: F Test: ABG TOTAL CO2; Value: 17.5; Range: 22.0-29.0; Abnormal: Below low normal; Units: MEQ/L; Status: F Test: ABG HCO3; Value: 16.7; Range: 22.0-26.0; Abnormal: Below low normal; Units: MEQ/L; Status: F Test: ABG BASE EXCESS; Value: -6.3; Range: -2.0-2.0; Abnormal: Below low normal; Status: F Test: ABG STANDARD HCO3; Value: 19.4; Range: 22.0-26.0; Abnormal: Below low normal; Units: MEQ/L; Status: F Test: ABG O2 SATURATION; Value: 99.2; Range: 95.0-99.0; Abnormal: Above high normal; Units: %; Status: F Test: ABG DEVICE; Value: NASAL ROSHNI; Status: F Test Note: ; GIANT AIR BUBBLE AT TOP OF SYRINGE Radiology Order: Chest, 2 View (pa\E\lat) Test: Chest, 2 View (pa\E\lat) REASON FOR EXAMINATION: Cough;Shortness of Breath; Clinical: Acute cough and shortness of breath .; ; Comparison: 03/22/2016 .; ; Technique: PA and lateral.; ; Findings:; The mediastinum and cardiac silhouette are normal. The lung go are clear and; without acute consolidation, effusion, or pneumothorax. The skeletal structures; are intact and normal.; ; Impression:; 1. No acute cardiopulmonary process.; ; ; Signed by; Edward Schmidt MD 08/13/2016 02:31 A; Outcome: 23:43 Discharge ordered by Provider. cailin 23:52 Discharge Assessment: Patient awake, alert and oriented x 3. No cognitive and/or tm5 functional deficits noted. Patient verbalized understanding of disposition instructions. patient administered narcotics - yes. Pt provided with safe discharge. The following High Risk Discharge criteria are identified: None. Discharged to home ambulatory, with family. Condition: good Condition: stable. Discharge instructions given to patient, Instructed on discharge instructions, follow up and referral plans. medication usage, no driving heavy equipment, Demonstrated understanding of instructions, medications, Pt was receptive of discharge instructions/ teaching. Prescriptions given X 1. No special radiology studies were completed. Property :Personal belongings accompany Pt. 23:53 Patient left the ED. tm5 Signatures: Dispatcher [employer] EDMS Brandi Young, Leonardo Lopez Lisa, TELEGRAPH SERVICE CLERK TELEGRAPH SERVICE CLERK Teddy Springer jc3 Navneet Castañeda, BETY TE[employer] Teresa Parekh,RN RN tm5 Chart Complete [facility]
--- NOTE | 2016-08-15 00:54 | EDDOCDS ---
Physician Documentation [facility] Name: Hina Devi Age: 50 yrs Sex: Female : 1965 Arrival Date: 08/12/2016 Time: 20:38 Bed 10 Private MD: Woodrow Tan MD Disposition: 08/12/16 23:43 Discharged to Home/Self Care. Impression: Acute bronchitis, Low back pain. - Condition is Stable. - Discharge Instructions: Acute Bronchitis, Back Pain, Adult. - Prescriptions for benzonatate 200 mg Oral Capsule - take 1 capsule by ORAL route 3 times per day As needed; 30 capsule. - Medication Reconciliation, Local Pharmacy Hours form. - Follow up: Woodrow Tan; When: Call to arrange an appointment; Reason: Recheck today's complaints, Continuance of care. - Problem is new. - Symptoms have improved. - Notes: Keep hydrated I suggest sucking on cough drops to help decrease the irritation at the back of your throat Continue to use the medications prescribed to you by Dr Tan Return to the ED for fever or worsening shortness of breath Historical: - Allergies: Avandia (Swelling); Cardizem CD; Glucophage (Swelling); Lisinopril; Pyridium (Swelling); - Home Meds: 1. aspirin 81 mg Oral chew 1 tab once daily 2. Bentyl 10 mg Oral cap 1 cap 4 times per day 3. carvedilol 6.25 mg oral tab 2 times per day 4. clonazepam 0.5 mg Oral tab HS 5. DuoNeb Inhl as needed 6. Hum R sliding scale AC 7. Lasix 80 mg Oral tab 1 tab prn 8. losartan 50 mg oral tab 1 tab 2 times per day 9. Methocarbamol Oral as needed 10. Neurontin 300 mg Oral cap 3 times per day 11. novalog 70/30 50 units in AM and 40 units in PM hasn't used in a few weeks per PCP's orders pt takes 10 units as needed per provider 12. omeprazole 20 mg Oral cpDR 1 cap once daily 13. ropinirole 4 mg oral tab HS 14. tizanidine 2 mg oral tab as needed 15. Toujeo 40 units Q AM 16. Wellbutrin XL 150 mg Oral Tb24 1 tab once daily 17. prednisolone 20 mg Oral tab once daily 18. doxycycline hyclate 100 mg Oral cap 1 cap every 12 hours - PMHx: COPD; Diabetes - IDDM: controlled; Colitis; GERD; mild renal failure; Pneumonia; PVC's; Shingles; Hypertension; Diabetes - NIDDM: controlled; - PSHx: ; - Social history: Smoking status: Patient uses tobacco products, current every day smoker. No barriers to communication noted, The patient speaks fluent Ethiopian. - Family history: Not pertinent. - : The pt / caregiver states he / she is not on anticoagulants. Home medication list is obtained from [employer] import data. - Exposure Risk Screening:: None identified. 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 (182.88 cm); Pain 10/10; 22:08 BP 199 / 92 (man/); Pulse 91; Resp 22; Pulse Ox 97% on R/A; Pain 10/10; tm5 23:13 BP 197 / 87; Pulse 87; Resp 22; Pulse Ox 96% on R/A; tm5 23:41 BP 189 / 92 (man/); Pulse 84; Resp 20; Temp 98.6(O); Pulse Ox 98% on R/A; Pain 8/10; tm5 20:51 Body Mass Index 46.11 (154.22 kg, 182.88 cm) tm5 MDM: 20:52 Chest, 2 View (pa\E\lat) Ordered. EDMS 21:05 -Blood Culture (Adults Only), peripheral from different site, or from device/port/PICC le etc. if present ordered. 21:05 Material Preparation Worker/Pulse Ox/q 15 min VS ordered. le 21:05 IV Saline Lock ordered. le 21:05 Rhythm Strip to chart ordered. le 21:05 Chlorpheniramine-Hydrocodone Extended Release 12 hour Capsule 8 mg-10 mg 1 caps PO once le ordered. 21:06 Basic Metabolic Profile Ordered. EDMS 21:06 CBC with Diff Ordered. EDMS 21:07 Troponin Ordered. EDMS 21:07 -Blood Culture Ordered. EDMS 21:07 -Blood Culture (Adults Only), peripheral from different site, or from device/port/PICC mdr etc. if present complete. 21:08 BLOOD CULTURES Ordered. EDMS 21:22 Call Respiratory ordered. le 21:23 -Arterial Blood Gas Ordered. EDMS 21:25 Call Respiratory complete. mdr 21:36 Misc. Nursing Order ordered. le 21:57 Financial registration complete. zo 22:08 [facility] Payment Agreement was scanned into [employer] and attached to record. zo 22:17 morphine 4 mg IVP every 15 minutes; Document pain score/vitals after each dose (Hold if le SBP < 90mmHg) x2 ordered. 22:26 Basic Metabolic Profile Reviewed. le 22:26 CBC with Diff Reviewed. le 22:26 -Arterial Blood Gas Reviewed. le 22:26 Troponin Reviewed. le 22:27 NS 0.9% 1000 ml IV at bolus once ordered. le 08/13 12:02 T-Sheet-- Draft Copy was scanned into [employer] and attached to record. gb Administered Medications: 08/12 21:20 Drug: Chlorpheniramine-Hydrocodone 1 caps [hydrocodone ER 10 mg-chlorpheniramine 8 mg tm5 12hr capsule,extend.release (1 caps)] Route: PO; 22:00 Follow up: Response: No Adverse Reaction; No Adverse Reaction, cough improved tm5 21:31 CANCELLED (Other Intervention Used): Cepacol Sensations Hydra Lozenge 1 tabs Mucous le Membrane once 22:29 Drug: morphine 4 mg [morphine 4 mg/mL intravenous cartridge (1 mL)] Route: IVP; Site: tm5 right hand; 22:33 Drug: NS 0.9% 1000 ml [sodium chloride 0.9 % intravenous solution] Route: IV; Rate: tm5 bolus; Site: right hand; 23:34 Follow up: IV Status: Completed infusion; IV Intake: 1000ml tm5 22:58 Drug: morphine 4 mg [morphine 4 mg/mL intravenous cartridge (1 mL)] Route: IVP; Site: tm5 right hand; 22:58 Follow up: Response: No Adverse Reaction; No significant change. tm5 23:35 Follow up: Response: No Adverse Reaction; Pain is decreased tm5 Signatures: Dispatcher [employer] EDMS Brandi Young, Reg Reg gb [place], Zoeann zo Mayra Stewart, BUSINESS APPLICATIONS ANALYST BUSINESS APPLICATIONS ANALYST Navneet Ramos, ROOMING HOUSE INSPECTOR ROOMING HOUSE INSPECTOR mdr Teresa Bradford,RN RN tm5 The chart was reviewed and I authenticate all verbal orders and agree with the evaluation and treatment provided.Corrections: (The following items were deleted from the chart) : 21:17 Cepacol Sensations Hydra Lozenge 1 tabs Mucous Membrane once ordered. cailin simeon : 21:30 Cepacol Sensations Hydra Lozenge 1 tabs Mucous Membrane once ordered. cailin simeon 23:46 22:17 URINALYSIS+LAB ordered. EDMS EDMS Attachments: 22:08 [facility] Payment Agreement zo 08/13 12:02 T-Sheet-- Draft Copy gb Chart Complete MTDD
--- NOTE | 2016-08-15 00:54 | EDDOCDS ---
Physician Documentation [facility] Name: Hina Devi Age: 50 yrs Sex: Female : 1965 Arrival Date: 08/12/2016 Time: 20:38 Bed 10 Private MD: Woodrow Tan MD Disposition: 08/12/16 23:43 Discharged to Home/Self Care. Impression: Acute bronchitis, Low back pain. - Condition is Stable. - Discharge Instructions: Acute Bronchitis, Back Pain, Adult. - Prescriptions for benzonatate 200 mg Oral Capsule - take 1 capsule by ORAL route 3 times per day As needed; 30 capsule. - Medication Reconciliation, Local Pharmacy Hours form. - Follow up: Woodrow Tan; When: Call to arrange an appointment; Reason: Recheck today's complaints, Continuance of care. - Problem is new. - Symptoms have improved. - Notes: Keep hydrated I suggest sucking on cough drops to help decrease the irritation at the back of your throat Continue to use the medications prescribed to you by Dr Tan Return to the ED for fever or worsening shortness of breath Historical: - Allergies: Avandia (Swelling); Cardizem CD; Glucophage (Swelling); Lisinopril; Pyridium (Swelling); - Home Meds: 1. aspirin 81 mg Oral chew 1 tab once daily 2. Bentyl 10 mg Oral cap 1 cap 4 times per day 3. carvedilol 6.25 mg oral tab 2 times per day 4. clonazepam 0.5 mg Oral tab HS 5. DuoNeb Inhl as needed 6. Hum R sliding scale AC 7. Lasix 80 mg Oral tab 1 tab prn 8. losartan 50 mg oral tab 1 tab 2 times per day 9. Methocarbamol Oral as needed 10. Neurontin 300 mg Oral cap 3 times per day 11. novalog 70/30 50 units in AM and 40 units in PM hasn't used in a few weeks per PCP's orders pt takes 10 units as needed per provider 12. omeprazole 20 mg Oral cpDR 1 cap once daily 13. ropinirole 4 mg oral tab HS 14. tizanidine 2 mg oral tab as needed 15. Toujeo 40 units Q AM 16. Wellbutrin XL 150 mg Oral Tb24 1 tab once daily 17. prednisolone 20 mg Oral tab once daily 18. doxycycline hyclate 100 mg Oral cap 1 cap every 12 hours - PMHx: COPD; Diabetes - IDDM: controlled; Colitis; GERD; mild renal failure; Pneumonia; PVC's; Shingles; Hypertension; Diabetes - NIDDM: controlled; - PSHx: ; - Social history: Smoking status: Patient uses tobacco products, current every day smoker. No barriers to communication noted, The patient speaks fluent Palestinian. - Family history: Not pertinent. - : The pt / caregiver states he / she is not on anticoagulants. Home medication list is obtained from [employer] import data. - Exposure Risk Screening:: None identified. 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 (182.88 cm); Pain 10/10; 22:08 BP 199 / 92 (man/); Pulse 91; Resp 22; Pulse Ox 97% on R/A; Pain 10/10; tm5 23:13 BP 197 / 87; Pulse 87; Resp 22; Pulse Ox 96% on R/A; tm5 23:41 BP 189 / 92 (man/); Pulse 84; Resp 20; Temp 98.6(O); Pulse Ox 98% on R/A; Pain 8/10; tm5 20:51 Body Mass Index 46.11 (154.22 kg, 182.88 cm) tm5 MDM: 20:52 Chest, 2 View (pa\E\lat) Ordered. EDMS 21:05 -Blood Culture (Adults Only), peripheral from different site, or from device/port/PICC le etc. if present ordered. 21:05 Director Of Radiology/Pulse Ox/q 15 min VS ordered. le 21:05 IV Saline Lock ordered. le 21:05 Rhythm Strip to chart ordered. le 21:05 Chlorpheniramine-Hydrocodone Extended Release 12 hour Capsule 8 mg-10 mg 1 caps PO once le ordered. 21:06 Basic Metabolic Profile Ordered. EDMS 21:06 CBC with Diff Ordered. EDMS 21:07 Troponin Ordered. EDMS 21:07 -Blood Culture Ordered. EDMS 21:07 -Blood Culture (Adults Only), peripheral from different site, or from device/port/PICC mdr etc. if present complete. 21:08 BLOOD CULTURES Ordered. EDMS 21:22 Call Respiratory ordered. le 21:23 -Arterial Blood Gas Ordered. EDMS 21:25 Call Respiratory complete. mdr 21:36 Misc. Nursing Order ordered. le 21:57 Financial registration complete. zo 22:08 [facility] Payment Agreement was scanned into [employer] and attached to record. zo 22:17 morphine 4 mg IVP every 15 minutes; Document pain score/vitals after each dose (Hold if le SBP < 90mmHg) x2 ordered. 22:26 Basic Metabolic Profile Reviewed. le 22:26 CBC with Diff Reviewed. le 22:26 -Arterial Blood Gas Reviewed. le 22:26 Troponin Reviewed. le 22:27 NS 0.9% 1000 ml IV at bolus once ordered. le 08/13 12:02 T-Sheet-- Draft Copy was scanned into [employer] and attached to record. gb Administered Medications: 08/12 21:20 Drug: Chlorpheniramine-Hydrocodone 1 caps [hydrocodone ER 10 mg-chlorpheniramine 8 mg tm5 12hr capsule,extend.release (1 caps)] Route: PO; 22:00 Follow up: Response: No Adverse Reaction; No Adverse Reaction, cough improved tm5 21:31 CANCELLED (Other Intervention Used): Cepacol Sensations Hydra Lozenge 1 tabs Mucous le Membrane once 22:29 Drug: morphine 4 mg [morphine 4 mg/mL intravenous cartridge (1 mL)] Route: IVP; Site: tm5 right hand; 22:33 Drug: NS 0.9% 1000 ml [sodium chloride 0.9 % intravenous solution] Route: IV; Rate: tm5 bolus; Site: right hand; 23:34 Follow up: IV Status: Completed infusion; IV Intake: 1000ml tm5 22:58 Drug: morphine 4 mg [morphine 4 mg/mL intravenous cartridge (1 mL)] Route: IVP; Site: tm5 right hand; 22:58 Follow up: Response: No Adverse Reaction; No significant change. tm5 23:35 Follow up: Response: No Adverse Reaction; Pain is decreased tm5 Signatures: Dispatcher [employer] EDMS Brandi Young, Reg Reg gb [place], Zoeann zo Mayra Stewart, SUPERVISOR ORCHARD SUPERVISOR ORCHARD Navneet Ramos, DIGESTER CAPPER DIGESTER CAPPER mdr Teresa Bradford,RN RN tm5 The chart was reviewed and I authenticate all verbal orders and agree with the evaluation and treatment provided.Corrections: (The following items were deleted from the chart) : 21:17 Cepacol Sensations Hydra Lozenge 1 tabs Mucous Membrane once ordered. cailin simeon : 21:30 Cepacol Sensations Hydra Lozenge 1 tabs Mucous Membrane once ordered. cailin simeon 23:46 22:17 URINALYSIS+LAB ordered. EDMS EDMS Attachments: 22:08 [facility] Payment Agreement zo 08/13 12:02 T-Sheet-- Draft Copy gb Chart Complete MTDD
== END 2016-08-12 23:53 | disposition home or self-care (01) ==
LOC: M ED 20:38
DX: J44.0 Chronic obstructive pulmonary disease with (acute) lower respiratory infection (principal); M54.5 Low back pain; E11.9 Type 2 diabetes mellitus without complications; K52.9 Noninfective gastroenteritis and colitis, unspecified; K21.9 Gastro-esophageal reflux disease without esophagitis; N18.9 Chronic kidney disease, unspecified; I49.3 Ventricular premature depolarization; B02.9 Zoster without complications; I12.9 Hypertensive chronic kidney disease with stage 1 through stage 4 chronic kidney disease, or unspecified chronic kidney disease; F17.210 Nicotine dependence, cigarettes, uncomplicated; Z79.4 Long term (current) use of insulin; Z79.82 Long term (current) use of aspirin; Z79.899 Other long term (current) drug therapy; Z79.52 Long term (current) use of systemic steroids; Z88.8 Allergy status to other drugs, medicaments and biological substances

== ENCOUNTER → 2016-08-22 | Outpatient (CLI) | payer OTHER ==
[2016-08-22 10:38] LABS: BASO % 0.3 % (0.0-1.0); EOS # 0.1 K/mm3 (0.0-0.50); EOS % 1.4 % (0.0-3.0); LARGE UNSTAINED CELL # 0.1 K/mm3 (0.0-0.4); LARGE UNSTAINED CELL % 1.4 % (0.0-4.0); LYMPH # 0.8 K/mm3 (1.5-4.5); LYMPH % 20.1 % (24.0-44.0); MEAN CORPUSCULAR HEMOGLOBIN 32.9 pg (27.0-33.0); MEAN CORPUSCULAR HGB CONC 33.7 g/dl (32.0-36.5); MEAN CORPUSCULAR VOLUME 97.7 fl (80.0-96.0); MONO # 0.2 K/mm3 (0.0-0.8); MONO % 3.8 % (0.0-5.0)
[2016-08-22 10:40] LABS: PLATELET COUNT, AUTOMATED 82 k/mm3 (150-450)
[2016-08-22 10:55] LABS: ALBUMIN 2.9 GM/DL (3.2-5.2); ALKALINE PHOSPHATASE 71 U/L (45-117); ALT/SGPT 24 U/L (12-78); ANION GAP 10 MEQ/L (8-16); AST/SGOT 15 U/L (15-37); BILIRUBIN,TOTAL 0.6 MG/DL (0.2-1.0); BLOOD UREA NITROGEN 23 MG/DL (7-18); CALCIUM LEVEL 8.4 MG/DL (8.5-10.1); CARBON DIOXIDE LEVEL 23 MEQ/L (21-32); CHLORIDE LEVEL 113 MEQ/L (98-107); GLOMERULAR FILTRATION RATE > 60.0 (>58); GLUCOSE, FASTING 236 MG/DL (70-105); SODIUM LEVEL 146 MEQ/L (136-145); TOTAL PROTEIN 5.8 GM/DL (6.4-8.2)
[2016-08-22 12:16] LABS: ERYTHROCYTE SEDIMENTATION RATE 25 mm/hr (0-20)
== END ==
LOC: M LAB 09:48
PROVIDERS: ATTEND Psychiatry & Neurology Neurology
DX: R51 Headache (principal)

== ENCOUNTER 2016-08-26 17:21 | Emergency (ER) | payer OTHER ==
[2016-08-26] MEDS ORDERED: NORCO, ANEXSIA 5/325MG TABLET (HYDROcodone/ACETAMINOPHEN) As Ordered ONE (20:41)
--- NOTE | 2016-08-26 20:58 | EDDOCDS ---
Physician Documentation [facility] Name: Hina Devi Age: 50 yrs Sex: Female : 1965 Arrival Date: 08/26/2016 Time: 17:21 Bed TR8 Private MD: Woodrow Tan MD Disposition: 08/26/16 20:45 Discharged to Home/Self Care. Impression: Carpal tunnel syndrome, unspecified upper limb - bilateral . - Condition is Stable. - Discharge Instructions: Carpal Tunnel Syndrome, Neuropathic Pain, Wrist Splint. - Prescriptions for [place] 5- 325 mg Oral Tablet - take 1 tablet by ORAL route every 6 hours As needed MDD: 4 tabs; 12 tablet. - Medication Reconciliation, Local Pharmacy Hours form. - Follow up: Woodrow Tan; When: Call to arrange an appointment; Reason: Recheck today's complaints, Continuance of care. - Problem is new. - Symptoms are unchanged. Historical: - Allergies: Avandia (Swelling); Cardizem CD; Glucophage (Swelling); Lisinopril; Pyridium (Swelling); - Home Meds: 1. aspirin 81 mg Oral chew 1 tab once daily 2. Bentyl 10 mg Oral cap 1 cap 4 times per day 3. carvedilol 25 mg oral tab 2 times per day 4. clonazepam 0.5 mg Oral tab HS 5. doxycycline hyclate 100 mg Oral cap 1 cap every 12 hours 6. DuoNeb Inhl as needed 7. Hum R sliding scale AC 8. Lasix 80 mg Oral tab 1 tab once daily 9. losartan 50 mg oral tab 1 tab 2 times per day 10. methocarbamol 750 mg oral tab twice a day 11. Neurontin 400 mg oral cap 3 times per day 12. novalog 70/30 50 units in AM and 40 units in PM hasn't used in a few weeks per PCP's orders pt takes 10 units as needed per provider 13. Toujeo SoloStar 300 unit/mL (1.5 mL) subcutaneous inpn 40 unnits every am 14. omeprazole 20 mg Oral cpDR 1 cap once daily 15. ropinirole 4 mg oral tab HS 16. tizanidine 2 mg oral tab as needed 17. Wellbutrin XL 150 mg Oral Tb24 1 tab once daily 18. fluticasone 50 mcg 1 spray in nostrils daily 19. hydralazine 10 mg Oral tab 1 tab 4 times per day 20. montelukast 10 mg oral tab 1 tab once daily 21. bupropion HCl 150 mg Oral Tb24 1 tab once daily 22. dicyclomine 10 mg Oral cap 1 cap 4 times per day 23. proairMDI 2 puffs every 4 hours 24. senna s 8.6/500 mg 2 tabs daily as needed 25. magnesium 400 mg daily 26. vitamin B2 unknown dose daily 27. saline nasal spray in each nostril 4 times daily - PMHx: Colitis; COPD; Diabetes - IDDM: controlled; Diabetes - NIDDM: controlled; GERD; Hypertension; mild renal failure; Pneumonia; PVC's; Shingles; - PSHx: ; Caclium deposit removed from right breast; Cholecystectomy; Uterine Ablation; abscess removed from left leg; Rotator Cuff Repair- Left; Sinus Surgery; cyst removed from left breast; right achiles tendon surgery; Lithotripsy; renal stents; heart cath; Colonoscopy; endoscopy; - Social history: Smoking status: Patient uses tobacco products, light tobacco smoker. No barriers to communication noted, The patient speaks fluent Norwegian. - Family history: Not pertinent. - : The pt / caregiver states he / she is not on anticoagulants. Home medication list is obtained from the patient. - Exposure Risk Screening:: None identified. 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 0 in. (182.88 cm) (R); Pain 5/10; 20:49 BP 176 / 84; mlb1 17:23 Body Mass Index 46.11 (154.22 kg, 182.88 cm) gr2 MDM: 20:32 HYDROcodone-acetaminophen 5 mg-325 mg 1 tabs PO once ordered. mo1 20:32 Splint Affected Extremity ordered. mo1 Administered Medications: 20:45 Drug: HYDROcodone-acetaminophen 1 tabs [hydrocodone 5 mg-acetaminophen 325 mg tablet (1 mcp tabs)] Route: PO; Signatures: Cristina Dai RN RN kcs Peters, Mary, RN RN mcp O'Hagan, Michael MITCHELL PA mo1 HORACIOD
--- NOTE | 2016-08-26 20:58 | EDDOCDS ---
Nurse's Notes [facility] Name: Hina Devi Age: 50 yrs Sex: Female : 1965 Arrival Date: 08/26/2016 Time: 17:21 Bed TR8 Private MD: Woodrow Tan MD Diagnosis: Carpal tunnel syndrome, unspecified upper limb-bilateral Presentation: 08/26 17:31 Presenting complaint: Patient states: last night when she went to bed both her arms kcs were cold and tingling - when she tried to straighten them out it felt like someone pulling her veins out with pliers - called an on-call doctor and was told to relax it was probably neuropathy - her doctor called her this am and told her to up her Neurontin - today her arms hurt again and felt like they were stretching right out - palpitations worse than usual. Also has Bronchitis. Adult Sepsis Screening: The patient does not have new or worsening altered mentation. Patient's respiratory rate is less than 22. Systolic blood pressure is greater than 100. Patient has a qSOFA score of 0- Negative Sepsis Screen. Suicide/Homicide risk assessment- the patient denies having any suicidal and/or homicidal ideations and does not present with any other emotional, behavioral or mental health complaints. Status: Patient is not a customer service and sales consultant or dependent. Transition of care: patient was not received from another setting of care. 17:31 Acuity: SRIKANTH Level 4 kcs 17:31 Method Of Arrival: Walkin/Carried/Asstd kcs Triage Assessment: 17:45 General: Appears comfortable, obese, well developed, well nourished, well groomed, kcs Behavior is cooperative, fussy. Pain: Location: both arms Pain currently is 8 out of 10 on a pain scale. HIV screening NA for this visit Offered previously. Neurological: Level of Consciousness is awake, alert. Respiratory: Airway is patent Respiratory effort is even, unlabored, Respiratory pattern is regular, symmetrical. Derm: Skin is intact, is healthy with good turgor, Skin is dry, Skin is normal. CELL RELINER: 17:45 LMP N/A - Uterine ablation kcs Historical: - Allergies: Avandia (Swelling); Cardizem CD; Glucophage (Swelling); Lisinopril; Pyridium (Swelling); - Home Meds: 1. aspirin 81 mg Oral chew 1 tab once daily 2. Bentyl 10 mg Oral cap 1 cap 4 times per day 3. carvedilol 25 mg oral tab 2 times per day 4. clonazepam 0.5 mg Oral tab HS 5. doxycycline hyclate 100 mg Oral cap 1 cap every 12 hours 6. DuoNeb Inhl as needed 7. Hum R sliding scale AC 8. Lasix 80 mg Oral tab 1 tab once daily 9. losartan 50 mg oral tab 1 tab 2 times per day 10. methocarbamol 750 mg oral tab twice a day 11. Neurontin 400 mg oral cap 3 times per day 12. novalog 70/30 50 units in AM and 40 units in PM hasn't used in a few weeks per PCP's orders pt takes 10 units as needed per provider 13. Toujeo SoloStar 300 unit/mL (1.5 mL) subcutaneous inpn 40 unnits every am 14. omeprazole 20 mg Oral cpDR 1 cap once daily 15. ropinirole 4 mg oral tab HS 16. tizanidine 2 mg oral tab as needed 17. Wellbutrin XL 150 mg Oral Tb24 1 tab once daily 18. fluticasone 50 mcg 1 spray in nostrils daily 19. hydralazine 10 mg Oral tab 1 tab 4 times per day 20. montelukast 10 mg oral tab 1 tab once daily 21. bupropion HCl 150 mg Oral Tb24 1 tab once daily 22. dicyclomine 10 mg Oral cap 1 cap 4 times per day 23. proairMDI 2 puffs every 4 hours 24. senna s 8.6/500 mg 2 tabs daily as needed 25. magnesium 400 mg daily 26. vitamin B2 unknown dose daily 27. saline nasal spray in each nostril 4 times daily - PMHx: Colitis; COPD; Diabetes - IDDM: controlled; Diabetes - NIDDM: controlled; GERD; Hypertension; mild renal failure; Pneumonia; PVC's; Shingles; - PSHx: ; Caclium deposit removed from right breast; Cholecystectomy; Uterine Ablation; abscess removed from left leg; Rotator Cuff Repair- Left; Sinus Surgery; cyst removed from left breast; right achiles tendon surgery; Lithotripsy; renal stents; heart cath; Colonoscopy; endoscopy; - Social history: Smoking status: Patient uses tobacco products, light tobacco smoker. No barriers to communication noted, The patient speaks fluent Maltese. - Family history: Not pertinent. - : The pt / caregiver states he / she is not on anticoagulants. Home medication list is obtained from the patient. - Exposure Risk Screening:: None identified. Screenin:47 Screening information is obtained from the patient. Fall risk: No risks identified. mcp Assistance ADL's: requires no assistance with activities of daily living. Abuse/DV Screen: The patient / caregiver reports he/she is: not in a situation that causes fear, pain or injury. Nutritional screening: No deficits noted. Advance Directives: There is no active DNR order. home support is adequate. Assessment: 20:46 General: Appears uncomfortable, Behavior is cooperative. Pain: Location: bilateral mcp wrists. Neurological: No deficits noted. Respiratory: Airway is patent Respiratory effort is even, unlabored. Derm: Skin is pink, warm & dry. Vital Signs: 17:23 BP 181 / 87; Pulse 87; Resp 18 S; Temp 98.4(O); Pulse Ox 97% ; Weight 154.22 kg (R); gr2 Height 6 ft. 0 in. (182.88 cm) (R); Pain 5/10; 20:49 BP 176 / 84; mlb1 17:23 Body Mass Index 46.11 (154.22 kg, 182.88 cm) gr2 Vitals: 17:23 Log In Time: August 26, 2016 at 17:23. gr2 ED Course: 17:22 Patient visited by Stephie Ontiveros. gr2 17:22 Patient moved to Waiting gr2 17:23 Woodrow Tan is Private Physician. gr2 17:24 Patient visited by Stephie Ontiveros. gr2 17:24 Patient moved to Pre RCE gr2 17:33 Triage Initiated kcs 19:35 Patient moved to Triage 1 ms18 20:15 Stas Busby PA is PHCP. mo1 20:15 Bautista Wolf MD is Attending Physician. mo1 20:24 Patient visited by Stas Busby PA. mo1 20:44 Woodrow Tan is Referral Physician. mo1 20:46 No IV's were initiated during this patient's visit. No procedures done that require mcp assistance. Velcro wrist splint applied to bilateral Patient with positive distal sensation and brisk distal capillary refill after application. 20:48 Patient visited by Bev Valentine RN. [facility] 20:49 Patient visited by Stas Gilliland, RN. b1 20:54 Patient moved to [place] [id number] 20:57 The patient / caregiver is instructed regarding the plan of care and ED course. mcp Administered Medications: 20:45 Drug: HYDROcodone-acetaminophen 1 tabs [hydrocodone 5 mg-acetaminophen 325 mg tablet (1 mcp tabs)] Route: PO; Order Results: There are currently no results for this order. Outcome: 20:45 Discharge ordered by Provider. mo1 20:56 Discharge Assessment: patient administered narcotics - yes. Pt provided with safe mcp discharge. The following High Risk Discharge criteria are identified: None. Discharged to home ambulatory. Condition: stable. Discharge instructions given to patient, Instructed on discharge instructions, follow up and referral plans. medication usage, no driving heavy equipment, no drinking with medication, Demonstrated understanding of instructions, medications, Pt was receptive of discharge instructions/ teaching. Prescriptions given X 1. No special radiology studies were completed. Property sent home with patient. 20:57 Patient left the ED. [facility] Signatures: Cristina Dai RN RN [facility] Bev Valentine RN RN [facility] Stas Gilliland, RN RN mlb1 Stephie Ontiveros gr2 Stas Busby PA PA mo1 Yael Laughlin RN RN ms18 MTDD
--- NOTE | 2016-08-28 21:58 | EDDOCDS ---
Physician Documentation [facility] Name: Hina Devi Age: 50 yrs Sex: Female : 1965 Arrival Date: 08/26/2016 Time: 17:21 Bed TR8 Private MD: Woodrow Tan MD Disposition: 08/26/16 20:45 Discharged to Home/Self Care. Impression: Carpal tunnel syndrome, unspecified upper limb - bilateral . - Condition is Stable. - Discharge Instructions: Carpal Tunnel Syndrome, Neuropathic Pain, Wrist Splint. - Prescriptions for [place] 5- 325 mg Oral Tablet - take 1 tablet by ORAL route every 6 hours As needed MDD: 4 tabs; 12 tablet. - Medication Reconciliation, Local Pharmacy Hours form. - Follow up: Woodrow Tan; When: Call to arrange an appointment; Reason: Recheck today's complaints, Continuance of care. - Problem is new. - Symptoms are unchanged. Historical: - Allergies: Avandia (Swelling); Cardizem CD; Glucophage (Swelling); Lisinopril; Pyridium (Swelling); - Home Meds: 1. aspirin 81 mg Oral chew 1 tab once daily 2. Bentyl 10 mg Oral cap 1 cap 4 times per day 3. carvedilol 25 mg oral tab 2 times per day 4. clonazepam 0.5 mg Oral tab HS 5. doxycycline hyclate 100 mg Oral cap 1 cap every 12 hours 6. DuoNeb Inhl as needed 7. Hum R sliding scale AC 8. Lasix 80 mg Oral tab 1 tab once daily 9. losartan 50 mg oral tab 1 tab 2 times per day 10. methocarbamol 750 mg oral tab twice a day 11. Neurontin 400 mg oral cap 3 times per day 12. novalog 70/30 50 units in AM and 40 units in PM hasn't used in a few weeks per PCP's orders pt takes 10 units as needed per provider 13. Toujeo SoloStar 300 unit/mL (1.5 mL) subcutaneous inpn 40 unnits every am 14. omeprazole 20 mg Oral cpDR 1 cap once daily 15. ropinirole 4 mg oral tab HS 16. tizanidine 2 mg oral tab as needed 17. Wellbutrin XL 150 mg Oral Tb24 1 tab once daily 18. fluticasone 50 mcg 1 spray in nostrils daily 19. hydralazine 10 mg Oral tab 1 tab 4 times per day 20. montelukast 10 mg oral tab 1 tab once daily 21. bupropion HCl 150 mg Oral Tb24 1 tab once daily 22. dicyclomine 10 mg Oral cap 1 cap 4 times per day 23. proairMDI 2 puffs every 4 hours 24. senna s 8.6/500 mg 2 tabs daily as needed 25. magnesium 400 mg daily 26. vitamin B2 unknown dose daily 27. saline nasal spray in each nostril 4 times daily - PMHx: Colitis; COPD; Diabetes - IDDM: controlled; Diabetes - NIDDM: controlled; GERD; Hypertension; mild renal failure; Pneumonia; PVC's; Shingles; - PSHx: ; Caclium deposit removed from right breast; Cholecystectomy; Uterine Ablation; abscess removed from left leg; Rotator Cuff Repair- Left; Sinus Surgery; cyst removed from left breast; right achiles tendon surgery; Lithotripsy; renal stents; heart cath; Colonoscopy; endoscopy; - Social history: Smoking status: Patient uses tobacco products, light tobacco smoker. No barriers to communication noted, The patient speaks fluent Cuban. - Family history: Not pertinent. - : The pt / caregiver states he / she is not on anticoagulants. Home medication list is obtained from the patient. - Exposure Risk Screening:: None identified. 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 0 in. (182.88 cm) (R); Pain 5/10; 20:49 BP 176 / 84; mlb1 17:23 Body Mass Index 46.11 (154.22 kg, 182.88 cm) gr2 MDM: 20:32 HYDROcodone-acetaminophen 5 mg-325 mg 1 tabs PO once ordered. mo1 20:32 Splint Affected Extremity ordered. mo1 08/27 12:51 T-Sheet-- Draft Copy was scanned into [employer] and attached to record. gb Administered Medications: 08/26 20:45 Drug: HYDROcodone-acetaminophen 1 tabs [hydrocodone 5 mg-acetaminophen 325 mg tablet (1 mcp tabs)] Route: PO; Signatures: Cristina Dai RN RN Bev Spring RN RN mcp Brandi Young, Nba Reg gb Stas Busby PA PA mo1 The chart was reviewed and I authenticate all verbal orders and agree with the evaluation and treatment provided.Attachments: 08/27 12:51 T-Sheet-- Draft Copy gb Chart Complete MTDD
--- NOTE | 2016-08-28 21:58 | EDDOCDS ---
Physician Documentation [facility] Name: Hina Devi Age: 50 yrs Sex: Female : 1965 Arrival Date: 08/26/2016 Time: 17:21 Bed TR8 Private MD: Woodrow Tan MD Disposition: 08/26/16 20:45 Discharged to Home/Self Care. Impression: Carpal tunnel syndrome, unspecified upper limb - bilateral . - Condition is Stable. - Discharge Instructions: Carpal Tunnel Syndrome, Neuropathic Pain, Wrist Splint. - Prescriptions for [place] 5- 325 mg Oral Tablet - take 1 tablet by ORAL route every 6 hours As needed MDD: 4 tabs; 12 tablet. - Medication Reconciliation, Local Pharmacy Hours form. - Follow up: Woodrow Tan; When: Call to arrange an appointment; Reason: Recheck today's complaints, Continuance of care. - Problem is new. - Symptoms are unchanged. Historical: - Allergies: Avandia (Swelling); Cardizem CD; Glucophage (Swelling); Lisinopril; Pyridium (Swelling); - Home Meds: 1. aspirin 81 mg Oral chew 1 tab once daily 2. Bentyl 10 mg Oral cap 1 cap 4 times per day 3. carvedilol 25 mg oral tab 2 times per day 4. clonazepam 0.5 mg Oral tab HS 5. doxycycline hyclate 100 mg Oral cap 1 cap every 12 hours 6. DuoNeb Inhl as needed 7. Hum R sliding scale AC 8. Lasix 80 mg Oral tab 1 tab once daily 9. losartan 50 mg oral tab 1 tab 2 times per day 10. methocarbamol 750 mg oral tab twice a day 11. Neurontin 400 mg oral cap 3 times per day 12. novalog 70/30 50 units in AM and 40 units in PM hasn't used in a few weeks per PCP's orders pt takes 10 units as needed per provider 13. Toujeo SoloStar 300 unit/mL (1.5 mL) subcutaneous inpn 40 unnits every am 14. omeprazole 20 mg Oral cpDR 1 cap once daily 15. ropinirole 4 mg oral tab HS 16. tizanidine 2 mg oral tab as needed 17. Wellbutrin XL 150 mg Oral Tb24 1 tab once daily 18. fluticasone 50 mcg 1 spray in nostrils daily 19. hydralazine 10 mg Oral tab 1 tab 4 times per day 20. montelukast 10 mg oral tab 1 tab once daily 21. bupropion HCl 150 mg Oral Tb24 1 tab once daily 22. dicyclomine 10 mg Oral cap 1 cap 4 times per day 23. proairMDI 2 puffs every 4 hours 24. senna s 8.6/500 mg 2 tabs daily as needed 25. magnesium 400 mg daily 26. vitamin B2 unknown dose daily 27. saline nasal spray in each nostril 4 times daily - PMHx: Colitis; COPD; Diabetes - IDDM: controlled; Diabetes - NIDDM: controlled; GERD; Hypertension; mild renal failure; Pneumonia; PVC's; Shingles; - PSHx: ; Caclium deposit removed from right breast; Cholecystectomy; Uterine Ablation; abscess removed from left leg; Rotator Cuff Repair- Left; Sinus Surgery; cyst removed from left breast; right achiles tendon surgery; Lithotripsy; renal stents; heart cath; Colonoscopy; endoscopy; - Social history: Smoking status: Patient uses tobacco products, light tobacco smoker. No barriers to communication noted, The patient speaks fluent [place]. - Family history: Not pertinent. - : The pt / caregiver states he / she is not on anticoagulants. Home medication list is obtained from the patient. - Exposure Risk Screening:: None identified. 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 0 in. (182.88 cm) (R); Pain 5/10; 20:49 BP 176 / 84; mlb1 17:23 Body Mass Index 46.11 (154.22 kg, 182.88 cm) gr2 MDM: 20:32 HYDROcodone-acetaminophen 5 mg-325 mg 1 tabs PO once ordered. mo1 20:32 Splint Affected Extremity ordered. mo1 08/27 12:51 T-Sheet-- Draft Copy was scanned into [employer] and attached to record. gb Administered Medications: 08/26 20:45 Drug: HYDROcodone-acetaminophen 1 tabs [hydrocodone 5 mg-acetaminophen 325 mg tablet (1 mcp tabs)] Route: PO; Signatures: Cristina Dai RN RN Bev Spring RN RN mcp Brandi Young, Nba Reg gb Stas Busby PA PA mo1 The chart was reviewed and I authenticate all verbal orders and agree with the evaluation and treatment provided.Attachments: 08/27 12:51 T-Sheet-- Draft Copy gb Chart Complete MTDD
--- NOTE | 2016-08-28 21:58 | EDDOCDS ---
Nurse's Notes [facility] Name: Hina Devi Age: 50 yrs Sex: Female : 1965 Arrival Date: 08/26/2016 Time: 17:21 Bed TR8 Private MD: Woodrow Tan MD Diagnosis: Carpal tunnel syndrome, unspecified upper limb-bilateral Presentation: 08/26 17:31 Presenting complaint: Patient states: last night when she went to bed both her arms kcs were cold and tingling - when she tried to straighten them out it felt like someone pulling her veins out with pliers - called an on-call doctor and was told to relax it was probably neuropathy - her doctor called her this am and told her to up her Neurontin - today her arms hurt again and felt like they were stretching right out - palpitations worse than usual. Also has Bronchitis. Adult Sepsis Screening: The patient does not have new or worsening altered mentation. Patient's respiratory rate is less than 22. Systolic blood pressure is greater than 100. Patient has a qSOFA score of 0- Negative Sepsis Screen. Suicide/Homicide risk assessment- the patient denies having any suicidal and/or homicidal ideations and does not present with any other emotional, behavioral or mental health complaints. Status: Patient is not a guest services assistant or dependent. Transition of care: patient was not received from another setting of care. 17:31 Acuity: SRIKANTH Level 4 kcs 17:31 Method Of Arrival: Walkin/Carried/Asstd kcs Triage Assessment: 17:45 General: Appears comfortable, obese, well developed, well nourished, well groomed, kcs Behavior is cooperative, fussy. Pain: Location: both arms Pain currently is 8 out of 10 on a pain scale. HIV screening NA for this visit Offered previously. Neurological: Level of Consciousness is awake, alert. Respiratory: Airway is patent Respiratory effort is even, unlabored, Respiratory pattern is regular, symmetrical. Derm: Skin is intact, is healthy with good turgor, Skin is dry, Skin is normal. 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 aspirin 81 mg Oral chew 1 tab once daily 2. Bentyl 10 mg Oral cap 1 cap 4 times per day 3. carvedilol 25 mg oral tab 2 times per day 4. clonazepam 0.5 mg Oral tab HS 5. doxycycline hyclate 100 mg Oral cap 1 cap every 12 hours 6. DuoNeb Inhl as needed 7. Hum R sliding scale AC 8. Lasix 80 mg Oral tab 1 tab once daily 9. losartan 50 mg oral tab 1 tab 2 times per day 10. methocarbamol 750 mg oral tab twice a day 11. Neurontin 400 mg oral cap 3 times per day 12. novalog 70/30 50 units in AM and 40 units in PM hasn't used in a few weeks per PCP's orders pt takes 10 units as needed per provider 13. Toujeo SoloStar 300 unit/mL (1.5 mL) subcutaneous inpn 40 unnits every am 14. omeprazole 20 mg Oral cpDR 1 cap once daily 15. ropinirole 4 mg oral tab HS 16. tizanidine 2 mg oral tab as needed 17. Wellbutrin XL 150 mg Oral Tb24 1 tab once daily 18. fluticasone 50 mcg 1 spray in nostrils daily 19. hydralazine 10 mg Oral tab 1 tab 4 times per day 20. montelukast 10 mg oral tab 1 tab once daily 21. bupropion HCl 150 mg Oral Tb24 1 tab once daily 22. dicyclomine 10 mg Oral cap 1 cap 4 times per day 23. proairMDI 2 puffs every 4 hours 24. senna s 8.6/500 mg 2 tabs daily as needed 25. magnesium 400 mg daily 26. vitamin B2 unknown dose daily 27. saline nasal spray in each nostril 4 times daily - PMHx: Colitis; COPD; Diabetes - IDDM: controlled; Diabetes - NIDDM: controlled; GERD; Hypertension; mild renal failure; Pneumonia; PVC's; Shingles; - PSHx: ; Caclium deposit removed from right breast; Cholecystectomy; Uterine Ablation; abscess removed from left leg; Rotator Cuff Repair- Left; Sinus Surgery; cyst removed from left breast; right achiles tendon surgery; Lithotripsy; renal stents; heart cath; Colonoscopy; endoscopy; - Social history: Smoking status: Patient uses tobacco products, light tobacco smoker. No barriers to communication noted, The patient speaks fluent Russian. - Family history: Not pertinent. - : The pt / caregiver states he / she is not on anticoagulants. Home medication list is obtained from the patient. - Exposure Risk Screening:: None identified. Screenin:47 Screening information is obtained from the patient. Fall risk: No risks identified. mcp Assistance ADL's: requires no assistance with activities of daily living. Abuse/DV Screen: The patient / caregiver reports he/she is: not in a situation that causes fear, pain or injury. Nutritional screening: No deficits noted. Advance Directives: There is no active DNR order. home support is adequate. Assessment: 20:46 General: Appears uncomfortable, Behavior is cooperative. Pain: Location: bilateral mcp wrists. Neurological: No deficits noted. Respiratory: Airway is patent Respiratory effort is even, unlabored. Derm: Skin is pink, warm & dry. Vital Signs: 17:23 BP 181 / 87; Pulse 87; Resp 18 S; Temp 98.4(O); Pulse Ox 97% ; Weight 154.22 kg (R); gr2 Height 6 ft. 0 in. (182.88 cm) (R); Pain 5/10; 20:49 BP 176 / 84; mlb1 17:23 Body Mass Index 46.11 (154.22 kg, 182.88 cm) gr2 Vitals: 17:23 Log In Time: August 26, 2016 at 17:23. gr2 ED Course: 17:22 Patient visited by Stephie Ontiveros. gr2 17:22 Patient moved to Waiting gr2 17:23 Woodrow Tan is Private Physician. gr2 17:24 Patient visited by Stephie Ontiveros. gr2 17:24 Patient moved to Pre RCE gr2 17:33 Triage Initiated kcs 19:35 Patient moved to Triage 1 ms18 20:15 Stas Busby PA is PHCP. mo1 20:15 Bautista Wolf MD is Attending Physician. mo1 20:24 Patient visited by Stas Busby PA. mo1 20:44 Woodrow Tan is Referral Physician. mo1 20:46 No IV's were initiated during this patient's visit. No procedures done that require mcp assistance. Velcro wrist splint applied to bilateral Patient with positive distal sensation and brisk distal capillary refill after application. 20:48 Patient visited by Bev Valentine RN. [facility] 20:49 Patient visited by Stas Gilliland, RN. b1 20:[address] [facility] ms18 20:57 The patient / caregiver is instructed regarding the plan of care and ED course. [facility] 08/27 12:51 T-Sheet-- Draft Copy was scanned into [employer] and attached to record. gb Administered Medications: 08/26 20:45 Drug: HYDROcodone-acetaminophen 1 tabs [hydrocodone 5 mg-acetaminophen 325 mg tablet (1 mcp tabs)] Route: PO; Order Results: There are currently no results for this order. Outcome: 20:45 Discharge ordered by Provider. mo1 20:56 Discharge Assessment: patient administered narcotics - yes. Pt provided with safe [facility] discharge. The following High Risk Discharge criteria are identified: None. Discharged to home ambulatory. Condition: stable. Discharge instructions given to patient, Instructed on discharge instructions, follow up and referral plans. medication usage, no driving heavy equipment, no drinking with medication, Demonstrated understanding of instructions, medications, Pt was receptive of discharge instructions/ teaching. Prescriptions given X 1. No special radiology studies were completed. Property sent home with patient. 20:57 Patient left the ED. [facility] Signatures: Cristina Dai, RN RN [facility] Bev Valentine RN RN [facility] Brandi Young, Reg Reg Stas Gilliland, RN RN mlb1 Stephie Ontiveros gr2 Stas Busby PA PA mo1 Yael Laughlin RN RN ms18 Chart Complete MTDD
== END 2016-08-26 20:57 | disposition home or self-care (01) ==
LOC: M ED 17:21
DX: G56.03 Carpal tunnel syndrome, bilateral upper limbs (principal); E10.9 Type 1 diabetes mellitus without complications; J44.9 Chronic obstructive pulmonary disease, unspecified; I10 Essential (primary) hypertension; K21.9 Gastro-esophageal reflux disease without esophagitis; B02.9 Zoster without complications; N19 Unspecified kidney failure; F17.210 Nicotine dependence, cigarettes, uncomplicated; Z88.8 Allergy status to other drugs, medicaments and biological substances; Z79.899 Other long term (current) drug therapy; Z79.82 Long term (current) use of aspirin

== ENCOUNTER → 2016-08-27 | Outpatient (CLI) | payer OTHER ==
--- NOTE | 2016-09-02 00:21 | ECWPNPC ---
PATIENT NAME: WILLEM BALDWIN : 1965 GENDER: FEMALE VISIT DATE: 08/27/2016 DISCHARGE DATE: 08/27/16 1330 VISIT LOCKED DATE TIME: PHYSICIAN: SHANNEN PRADO RESOURCE: SHANNEN PRADO REASON FOR APPOINTMENT 1. LOW BACK HISTORY OF PRESENT ILLNESS FALL RISK SCREENIN50 Y/O FEMALE HERE FOR RECONSULT LAST VISIT AT PAIN CENTER [facility] .SHE WAS FOLLOWING WITH US FOR CHIEF COMPLAINT OF LOW BACK PAIN AND BILATERAL LOWER EXTREMITY PAIN.RATING PAIN VAS 9/10.REPORTING NEW ONSET OF GENERALIZED BACK SHOOTING PAIN AND SPASM.CURRENTLY USING ROBAXIN AND GABAPENTIN AND FINDS IT INEFFECTIVE.STARTED TIZANIDINE 4MG PRN IN APRIL BUT THIS IS CAUSING FATIGUE.TOOK TRAMADOL IN PAST AND FOUND IT INEFFECTIVE.PATIENT IS CRYING DURING INTERVIEW AND STATES SHE IS SO TIRED OF BEING IN PAIN. SCREENING :NO FALLS IN THE PAST YEAR PAIN SCREENING: PATIENT HAS A COMPLAINT OF ACUTE OR CHRONIC PAIN YES CURRENT MEDICATIONS TAKING SENNA S 8.6-50 MG TABLET 2 TABLETS PRN ORALLY BID TAKING CLONAZEPAM 1 MG TABLET 1 TABLET PRN ORALLY QHS (MDD 1) TAKING LASIX 80 MG TABLET 1 TABLET ORALLY ONCE A DAY TAKING NEBULIZER . DEVICE DIRECTED INHALED DIRECTED (DX. J41.1) TAKING NEBULIZER AIR TUBE/PLUGS . MISCELLANEOUS DIRECTED INHALED DIRECTED (J41.1) TAKING ASPIR-81 81 MG TABLET DELAYED RELEASE 1 TABLET ORALLY ONCE A DAY TAKING BLOOD GLUCOSE METER . KIT DIRECTED TO CHECK FSBS QAC TID - (DX E11.319) TAKING BLOOD GLUCOSE TEST STRIP . STRIP 1 STRIP DIRECTED IN VITRO QAC TID (DX. E11.319) TAKING LANCETS . MISCELLANEOUS DIRECTED TO CHECK FSBS QAC TID (DX E11.319) TAKING TIZANIDINE HCL 4 MG TABLET 1 TABLET NEEDED ORALLY EVERY 8 HRS, NOTES: ONLY TAKES 1/2 TAB TAKING MONTELUKAST SODIUM 10 MG TABLET 1 TABLET IN THE EVENING ORALLY ONCE A DAY TAKING INSULIN SYRINGE/NEEDLE 28G X 1/2 MISCELLANEOUS DX: Z72.0 SUBCUTANEOUSLY BID TAKING TOUJEO SOLOSTAR PENS 450 U/1.5ML PREFILLED PENS 40 UNITS IN THE MORNING SQ DAILY TAKING LOSARTAN POTASSIUM 50 MG TABLET 1 TAB(S) ORALLY BID TAKING METHOCARBAMOL 750 MG TABLET 1 TABLET PRN ORALLY BID TAKING WELLBUTRIN XL 150 MG TABLET EXTENDED RELEASE 24 HOUR 1 TABLET IN THE MORNING ORALLY ONCE A DAY TAKING OMEPRAZOLE 20MG 20MG CAPSULE 1 CAP(S) ORALLY DAILY TAKING PEN NEEDLES 31G X 6 MM MISCELLANEOUS ONE APPLICATION SUBCUTANEOUSLY DAILY E11.319 TAKING CETIRIZINE HCL 10 MG TABLET 1 TABLET NEEDED ORALLY ONCE A DAY TAKING FLONASE 50 MCG/ACT SUSPENSION 1 SPRAY IN EACH NOSTRIL NASALLY TWICE A DAY TAKING SALINE NASAL SPRAY 0.65 % SOLUTION DIRECTED NASALLY FOUR TIMES DAILY TAKING MUCINEX DM MAXIMUM STRENGTH 60-1200 MG TABLET EXTENDED RELEASE 12 HOUR 1 TABLET NEEDED ORALLY TWICE A DAY TAKING PROAIR HFA 108 (90 BASE) MCG/ACT AEROSOL SOLUTION 2 PUFFS NEEDED INHALATION EVERY 4 HRS TAKING ALCOHOL PADS 70 % PAD DIRECTED DX E11.9 TO USE PRIOR TO CHECKING BLOOD GLUCOSE TID TID PRIOR TO MEALS TAKING HYDRALAZINE HCL 10 MG TABLET 1 TABLET ORALLY FOUR TIMES A DAY TAKING BENTYL 10 MG CAPSULE 1 CAPSULE PRN ORALLY FOUR TIMES A DAY TAKING VITAMIN B-2 100 MG TABLET 1 TABLET WITH A MEAL ORALLY ONCE A DAY TAKING IPRATROPIUM-ALBUTEROL 0.5-2.5 (3) MG/3ML SOLUTION 3 ML PRN INHALATION EVERY 6 HRS TAKING CARVEDILOL 25 MG TABLET 1 TABLET WITH FOOD ORALLY TWICE A DAY TAKING ARNUITY ELLIPTA 200 MCG/ACT AEROSOL POWDER BREATH ACTIVATED 1 PUFF INHALATION ONCE A DAY TAKING ROPINIROLE HCL 2 MG TABLET 1 TAB(S) ORALLY BID TAKING BATH/SHOWER SEAT - MISCELLANEOUS DIRECTED DUE TO 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 R26.81) DIRECTED TAKING GABAPENTIN 400 MG CAPSULE 1 CAPSULE ORALLY THREE TIMES A DAY TAKING MAGNESIUM 400 MG CAPSULE 1 CAP ORALLY BID NOT-TAKING NOVOLOG 100 UNIT/ML SOLUTION FSBS 150-200 3U, 201-250 6U, 251-300 9U, 301-350 12U, 351-400 15U, OVER 400 18U SUBCUTANEOUS PRIOR TO DINNER (MDD 18U) NOT-TAKING CETIRIZINE HCL 10 MG TABLET 1 TABLET ORALLY ONCE A DAY NOT-TAKING DUONEB 0.5-2.5 (3) MG/3ML SOLUTION 3 ML NEDED INHALATION FOUR TIMES A DAY NOT-TAKING PREDNISONE 20 MG TABLET 1 TABLET ORALLY ONCE A DAY NOT-TAKING NORCO 5-325 MG TABLET 1 TABLET NEEDED ORALLY-ER EVERY 6 HRS NOT-TAKING LEVAQUIN 750 MG TABLET 1 TABLET ORALLY ONCE A DAY NOT-TAKING AUGMENTIN 875-125 MG TABLET 1 TABLET ORALLY EVERY 12 HRS NOT-TAKING PREDNISONE 20 MG TABLET 1 TABLET ORALLY BID NOT-TAKING TRAMADOL HCL 50 MG TABLET 1/2 TABLET NEEDED ORALLY EVERY 8 HRS (MDD 3) NOT-TAKING DIFLUCAN 150 MG TABLET 1 TABLET ORALLY ONCE NOT-TAKING AUGMENTIN 875-125 MG TABLET 1 TABLET ORALLY EVERY 12 HRS NOT-TAKING TRADJENTA 5MG TABLET 1 TAB ORAL DAILY NOT-TAKING POTASSIUM CHLORIDE ER 20 MEQ TABLET EXTENDED RELEASE 1 TAB(S) ORALLY DAILY DISCONTINUED DOXYCYCLINE MONOHYDRATE 100 MG CAPSULE 1 CAPSULE ORALLY EVERY 12 HRS DISCONTINUED TESSALON PERLES 100 MG CAPSULE 1 CAPSULE NEEDED ORALLY THREE TIMES A DAY DISCONTINUED PULMICORT 1 MG/2ML SUSPENSION 4 ML INHALATION FOUR TIMES A DAY DISCONTINUED PREDNISONE 20 MG TABLET 3 TABLET ORALLY ONCE A DAY DISCONTINUED DIFLUCAN 150 MG TABLET 1 TABLET ORALLY DAILY MEDICATION LIST REVIEWED AND RECONCILED WITH THE PATIENT PAST MEDICAL HISTORY DIABETES MELLITUS TYPE 2 WITHOUT COMPLICATION HYPERTENSION DEPRESSION KIDNEY STONES SCIATICA SEES ONCOLOGIST FOR LOW BLOOD PLT COUNT MILD RENAL FAILURE DUE TO MEDICATIONS ARTHRITIS CHRONIC NECK PAIN HYPOMAGNESEMIA DEPENDENT EDEMA UTI HYPOPROTEINEMIA RESTLESS LEGS GASTROESOPHAGEAL REFLUX DISEASE WITHOUT ESOPHAGITIS TOBACCO ABUSE PVC (PREMATURE VENTRICULAR CONTRACTION) HEART PALPITATIONS ENLARGED SPLEEN IMFLAMMED COLON ALLERGIES AVANDIA: RASH: ALLERGY GLUCOPHAGE: RASH: ALLERGY PYRIDIUM: BLEEDING: ALLERGY DILTIAZEM HCL: SWELLING: SIDE EFFECTS LISINOPRIL: COUGH: SIDE EFFECTS SURGICAL HISTORY C SECTION 1988 GALL BLADDER 1988 BREAST LUMP REMOVED, RIGHT 1993 ENDOMETRIAL ABLATION 1998 MASS REMOVED FROM LEFT LEG 2010 LEFT SHOULDER ROTATOR CUFF 2012 LEFT BREAST CYST REMOVAL 2011 SINUS/ DEVIATED SEPTUM 2013 ACHELIES TENDON--RIGHT 2014 BRONCHOSCOPY 2004, 2006 COLONOSCOPY/ ENDOSCOPY HEART CATHERIZATION 05/2015 FAMILY HISTORY FATHER: 89 YRS, DIAGNOSED WITH DIABETES, HEART DISEASE, OTHER MOTHER: 86 YRS, DIAGNOSED WITH HYPERTENSION, HEART DISEASE, OTHER SON(S): ALIVE 3 SON(S) . FATHER--COPDMOTHER--PERFORATED ULCERSMIDDLE SON--HYPERTENSIONOTHER 2 SONS ARE HEALTHY. SOCIAL HISTORY GENERAL: TOBACCO USE ARE YOU A:FORMER SMOKER HOW LONG HAS IT BEEN SINCE YOU LAST SMOKED?< 1 MONTH BMI CARE GOAL FOLLOW-UP ABOVE NORMAL BMI FOLLOW-UPDIETARY MANAGEMENT EDUCATION, GUIDANCE, AND COUNSELING ALCOHOL SCREENING POINTS: 2, INTERPRETATION: NEGATIVE. RECREATIONAL DRUG USE DENIES. CAFFEINE 1-2/DAY. SEXUAL HX HAD SEX IN THE LAST 12 MONTHS (VAGINAL, ORAL, OR ANAL)?: YES, WITH: MEN ONLY, USE PROTECTION?: NO, HAVE YOU EVER HAD AN STD?: NO. HIV / HEP-C SCREENING HIV TEST OFFERED TO PATIENT:YES DATE OFFERED:07/03/2016 TEST ACCEPTED:NO REASON:PATIENT DECLINED HEP-C TEST OFFERED TO PATIENT:NO OCCUPATION: DISABLED. DIET: NO ADDED SALT, CARBOHYDRATE CONTROLLED, LOW FAT, LOW CHOLESTEROL. EXERCISE: MUCH TOLERATED. MARITAL STATUS: .. OTHERS AT HOME: SON, OTHER RELATIVE. PETS: CATS. MORMONISM: NO BUDDHISM BELIEFS THAT WOULD IMPACT HEALTH CARE. LANGUAGE: MALAY. EDUCATION: [employer] PLAN OF CARE FOR THE PAIN CENTER REVIEWED WITH PATIENT AND SHE VERBALIZED UNDERSTANDING. LEARNING BARRIERS / SPECIAL NEEDS CHANGE FROM LAST VISIT?NO BARRIERS TO LEARNING?NO HEARING IMPAIRED?NO VISION IMPAIRED?YES :CORRECTIVE LENSES COGNITIVELY IMPAIRED?NO READINESS TO LEARN?YES LEARNING PREFERENCES?YES :BOOKLETS, DEMONSTRATION/VERBAL INSTRUCTION LEARNING CAPABILITIES PRESENT?YES EMOTIONAL BARRIERS?NO SPECIAL DEVICES?YES :[facility] PFS, CLERGY, PUBLIC HEALTH REFERRALS PFS REFERRAL NEEDED?NO CLERGY REFERRAL NEEDED?NO PUBLIC HEALTH REFERRAL NEEDED?NO ADVANCED DIRECTIVES HEALTH CARE PROXY?YES NAME OF HCP LELA SIMON--SON CONTACT # FOR HCP [phone] IF YES, DO YOU HAVE A COPY WITH YOU?NO WILL BRING IN DO YOU HAVE A DNR?NO LIVING WILL?YES IF YES, DO YOU HAVE A COPY WITH YOU?NO POWER OF OUTPATIENT CODER?YES NAME OF POA? LELA BALDWIN PHONE # OF POA? SEE ABOVE (HCP) IF YES, DO YOU HAVE A COPY WITH YOU?NO TRAVEL OUTSIDE US: NO TRAVEL IN LAST 21 DAYS. HOUSING: RENTS APARTMENT. DOMESTIC VIOLENCE: NONE. 30 PACK YRS. HOSPITALIZATION/MAJOR DIAGNOSTIC PROCEDURE SURGICALY RELATED MILD RENAL FAILURE [facility]--HEART CATH 05/2015 REVIEW OF SYSTEMS CONSTITUTIONAL: RECENT ILLNESS DENIES . ANY CHANGE IN YOUR MEDICAL CONDITION? YES, BEING WORKED UP FOR ENLARGED SPLEEN, INFLAMMED COLON AND ? CIRRHOSIS . CHILLS NO . FEVER NO, DENIES . WEIGHT LOSS DENIES . INFECTION: DO YOU HAVE NEW INFECTIONS? NO . DO YOU HAVE HISTORY OF MRSA? NO . MUSCULOSKELETAL: ANY NEW PATTERNS OF PAIN OR NUMBNESS? YES,PAIN IN NECK AND SHOULDERS NOW. FEELS LIKE PINS AND NEEDLES BEING SHOT IN HER BACK. MUSCLE SPASMS IN BACK ARE MORE SEVERE . SYTEMIC LUPUS NO . JOINT PAIN DENIES . JOINT STIFFNESS DENIES . GASTROENTEROLOGY: BOWEL INCONTINENCE DENIES . ANY NEW CHANGE IN BOWEL CONTROL? NO . BARRETTS ESOPHAGUS NO . CIRRHOSIS ?--BEING WORKED UP . HEPATITIS NO . LIVER FAILURE NO . ACID REFLUX YES . BLOOD IN STOOL DENIES . UNEXPLAINED WEIGHT LOSS NO . GENITOURINARY: ANY NEW CHANGE IN BLADDER CONTROL? UTI 3-4 WEEKS AGO . IS THERE A CHANCE YOU COULD BE ? NO . HEMATOLOGY/LYMPH: DENIES . BLEEDING DISORDER DENIES . DO YOU TAKE ANY BLOOD THINNERS? (FOR EXAMPLE- COUMADIN, PLAVIX, AGGRENOX, PLATEL, PRADAXA, OR XARELTO) NO . WHEN WAS YOUR LAST DOSE? DATE: TIME: . LOW PLATELET COUNT NO . SICKLE CELL DISEASE NO . VON WILLIEBRANDS NO . FACTOR V LEIDEN NO . THALLASEMIA NO . ANEMIA NO . EASY BRUISING YES, ON ASPIRIN . NEUROLOGY: HAVE YOU FALLEN IN THE PAST 6 MONTHS? NO . ANY NEW EXTREMITY NUMBNESS OR WEAKNESS? NO . HEAD INJURY NO . DEMENTIA NO . CEREBRAL PALSY NO . MULTIPLE SCLEROSIS NO . DIZZINESS INTERMITTENT, LASTING FOR MINUTES, LIGHTHEADED SENSATION, SENSATION OF IMBALANCE, SENSATION OF ROOM SPINNING, WHILE GETTING UP FROM SITTING POSITION, WITH MOVEMENT OF HEAD, WORSENING . HEADACHE ASSOCIATED WITH PHOTOPHOBIA, BILATERAL, BITEMPORAL , FACIAL, FREQUENT , FRONTAL, INTERMITTENT, OCCIPITAL, POUNDING, PRESSURE, SEVERE, SHARP, THROBBING, WORSENING, DENIES . SEIZURES DENIES . STROKES NO . VERTIGO NO . CARDIOLOGY: DO YOU HAVE A PACEMAKER OR DEFIBRILLATOR? NO . ANGINA NO . HEART ATTACK NO . HEART SURGERY YES CARDIAC CATH 2016 . CONGESTIVE HEART FAILURE/FLUID OVERLOAD NO . CHEST PAIN NO, DENIES . HIGH BLOOD PRESSURE ON MEDICATION(S) . IRREGULAR HEART BEAT HX PVC'S&NBSP;. SHORTNESS OF BREATH &NBSP;&NBSP; DENIES&NBSP;. RESPIRATORY: HAVE YOU BEEN SICK IN THE PAST WEEK? BRONCHITIS PAST MONTH . FEVER NO . FLU LIKE SYMPTOMS? NO . CPAP NO . BYPAP NO . ASTHMA NO . EMPHYSEMA NO . CHRONIC LUNG DISEASES NO . SHORTNESS OF BREATH ON EXERTION NO . COUGH NO, DENIES . SHORTNESS OF BREATH DENIES . SNORING NO HAVING SLEEP STUDY DONE TONIGHT . INTEGUMENTARY: DO YOU HAVE ANY RASHES OR OPEN SORES? NO . ALLERGIC/IMMUNO: ARE YOU ALLERGIC TO SHELLFISH OR IV DYE? NO . ANY NEW ALLERGIES? NO . PSYCHIATRIC: DO YOU HAVE THOUGHTS OF HURTING YOURSELF OR SOMEONE ELSE? NO . ARE YOU ABUSED, NEGLECTED, OR IN AN UNSAFE ENVIRONMENT? NO . ENDOCRINOLOGY: THYROID DISEASE DENIES . ARE YOU DIABETIC? YES . DIABETES DENIES . THYROID DISORDER NO . OTHER: DO YOU NEED ANY PRESCRIPTIONS? ? . IF YES, PLEASE LIST: ____ . ANY NEW PROBLEMS WITH YOUR MEDICATIONS? NO . WHEN DID YOU LAST EAT? ____ . WHEN DID YOU LAST DRINK? ____ . WHAT DID YOU LAST DRINK? ____ . NAME OF PERSON DRIVING YOU HOME? ____ . DO YOU HAVE ANY OTHER QUESTIONS OR CONCERNS YES WOULD LIKE TO WEAN OFF TIZANIDINE . HEENT: CHANGE IN VISION DENIES . LOSS OF HEARING DENIES . TROUBLE SWALLOWING DENIES . PSYCHOLOGY: ANXIETY DENIES . DEPRESSION DENIES . UROLOGY: URINARY INCONTINENCE DENIES . BLOOD IN URINE DENIES . REVIEWED BY: PROVIDER: SHANNEN PHAM . VITAL SIGNS WT 347.6 LBS, HT 72 IN, BMI 47.14 INDEX, BP 148/71 MM HG, HR 77 /MIN, RR 18 /MIN, TEMP 99.7 F, OXYGEN SAT % 94%, NA INITIALS SC 11:46, REVIEWED BY: AD. EXAMINATION GENERAL EXAMINATION: HEENT:HEAD:, NORMOCEPHALIC, EYES:, EYES NORMAL, NOSE:, NOSE CLEAR, THROAT: NORMAL. LUNGS:LUNG SOUNDS ARE CLEAR. HEART:HEART RATE REGULAR. ABDOMEN:SOFT AND NOT TENDER, NON-DISTENDED. MUSCULOSKELETAL:*. LUMBAR SACRAL SPINEMUSCLE STRENGTH TESTING 3/5 BILATERAL LOWER EXTREMITIES. PALPATION: POSITIVE FOR PAIN OVER L/S SPINE. POSITIVE FOR PAIN OVER L/S PARASPINALS. THORACIC SPINENEGATIVE FOR PAIN WITH PALPATION OF THORACIC SPINE. NEGATIVE FOR PAIN WITH PALPATION OF THORACIC PARASPINAL. CERVICAL+ FOR PAIN WITH PALPATION OF CERVICAL SPINE. + FOR PAIN WITH PALPATION OF CERVICAL PARAASPINALS. + FOR PAIN WITH PALPATION OF TRAPEZIUS BILAT. SKIN:NORMAL, NO RASH. NEUROLOGIC EXAM:ALERT AND ORIENTED X 3, DTRS 1-2+ IN ALL 4 EXTREMITIES, DENIES UPPER EXTREMETIES SENSORY LOSS, DENIES LOWER EXTREMETIES SENSORY LOSS. DIAGNOSTIC:MRI L/S [id number]. ASSESSMENTS NEUROPATHIC PAIN - M79.2 (PRIMARY) CHRONIC PAIN SYNDROME - G89.4 CHRONIC PRESCRIPTION OPIATE USE - Z79.891 TREATMENT NEUROPATHIC PAIN STOP TIZANIDINE HCL TABLET, 4 MG, 1 TABLET NEEDED, ORALLY, EVERY 8 HRS, NOTES: ONLY TAKES 1/2 TAB STOP METHOCARBAMOL TABLET, 750 MG, 1 TABLET PRN, ORALLY, BID CONTINUE GABAPENTIN CAPSULE, 400 MG, 1 CAPSULE, ORALLY, THREE TIMES A DAY START DILAUDID TABLET, 2 MG, 1, ORALLY, THREE TIMES DAILY MDD3, 30 DAY(S), 90, REFILLS 0 NOTES: RISKS AND BENEFITS OF NARCOTIC/OPIOD MEDICATIONS WERE REVIEWED WITH PATIENT - THIS INCLUDES BUT IS NOT LIMITED TO RISK OF DEPENDANCE/DEVELOPMENT OF ADDICTION, MOOD DISTURBANCE AND DEPRESSION, OSTEOPOROSIS, HORMONAL AND LABIDAL CHANGES, RESPIRATORY DEPRESSION AND . PATIENT IS ADVISED NOT TO DRIVE WHILE ON THESE MEDICATIONS. PROCEDURE CODES FA211 ESTABILISHED PATIENT [facility] CHARGE DISPOSITION & COMMUNICATION FOLLOW UP 4 WEEKS ELECTRONICALLY SIGNED BY VERO VALDERRAMA ON 09/01/2016 AT 05:09 PM EST DISCLAIMER : THIS IS A VISIT SUMMARY EXTRACTED FROM THE [employer] CHART. IT IS NOT A COPY OF THE [employer] PROGRESS NOTE. SETH
== END ==
LOC: M PAIN 11:20
PROVIDERS: ATTEND Nurse Practitioner Family
DX: Z09 Encounter for follow-up examination after completed treatment for conditions other than malignant neoplasm (principal); G89.29 Other chronic pain; M79.2 Neuralgia and neuritis, unspecified; G89.4 Chronic pain syndrome; E11.9 Type 2 diabetes mellitus without complications; M79.89 Other specified soft tissue disorders; E03.9 Hypothyroidism, unspecified; F32.9 Major depressive disorder, single episode, unspecified; D69.6 Thrombocytopenia, unspecified; M17.0 Bilateral primary osteoarthritis of knee; G25.81 Restless legs syndrome; K21.9 Gastro-esophageal reflux disease without esophagitis; F41.9 Anxiety disorder, unspecified; J44.1 Chronic obstructive pulmonary disease with (acute) exacerbation; K59.04 Chronic idiopathic constipation; G43.009 Migraine without aura, not intractable, without status migrainosus; G44.209 Tension-type headache, unspecified, not intractable; R16.1 Splenomegaly, not elsewhere classified; Z88.8 Allergy status to other drugs, medicaments and biological substances; Z79.4 Long term (current) use of insulin; Z79.52 Long term (current) use of systemic steroids; Z79.2 Long term (current) use of antibiotics; Z79.899 Other long term (current) drug therapy; Z87.891 Personal history of nicotine dependence

== ENCOUNTER → 2016-08-29 | Outpatient (CLI) | payer OTHER ==
--- NOTE | 2016-08-29 10:20 | REP ---
Clinical: History of splenomegaly. Comparison: CT dated 07/22/2016. Technique: Real time chester scale ultrasound examination using curved array transducer. Findings: The spleen is mildly enlarged measuring 13.2 x 9.19 x 8.4 cm. The left kidney is normal in reniform shape without hydronephrosis and measures 13.0 x 7.8 x 6.7 cm. Impression: Mild splenomegaly without obvious focal splenic lesion Signed by Edward Schmidt MD 08/29/2016 10:12 A
== END ==
LOC: M LRY 08:39
PROVIDERS: ATTEND Family Medicine
DX: R16.1 Splenomegaly, not elsewhere classified (principal)

== ENCOUNTER → 2016-09-24 | Outpatient (CLI) | payer OTHER ==
[~2016-09-24] MED LIST changes: -SERT-141 PO; +SERT50TA PO
--- NOTE | 2016-09-26 01:21 | ECWPNPC ---
PATIENT NAME: WILLEM BALDWIN : 1965 GENDER: FEMALE VISIT DATE: 09/24/2016 DISCHARGE DATE: 09/24/16 1150 VISIT LOCKED DATE TIME: PHYSICIAN: SHANNEN PRADO RESOURCE: SHANNEN PRADO REASON FOR APPOINTMENT 1. FOLLOWUP HISTORY OF PRESENT ILLNESS HISTORY OF PRESENT ILLNESS: PAIN THE PATIENT DESCRIBES THE PAIN... FALL RISK SCREENIN50 Y/O FEMALE HERE FOR F/U AFTER RECONSULT LAST VISIT .SHE WAS FOLLOWING WITH US FOR CHIEF COMPLAINT OF LOW BACK PAIN AND BILATERAL LOWER EXTREMITY PAIN.RATING PAIN VAS 8/10.REPORTED NEW ONSET OF GENERALIZED BACK SHOOTING PAIN AND SPASM.WAS USING ROBAXIN AND GABAPENTIN AND IT WAS INEFFECTIVE.STARTED TIZANIDINE 4MG PRN IN APRIL BUT THAT CAUSED FATIGUE.TOOK TRAMADOL IN PAST AND FOUND IT INEFFECTIVE.STARTED ON DILAUDID 2MG TID LAST VISIT AND REPORTS SOME IMPROVEMENT IN PAIN.SOMETIMES USES 1/2 TAB DUE TO SOME GI UPSET.PRIMARY PUT HER ON ZOFRAN WHICH HAS BEEN HELPFUL.STATES MEDICATION HELPS HER TO BE ABLE TO TOLERATE MORE ACTIVITY IE HOUSEWORK. SCREENING :NO FALLS IN THE PAST YEAR :NO FALLS IN THE PAST YEAR CURRENT MEDICATIONS TAKING SENNA S 8.6-50 MG TABLET 2 TABLETS PRN ORALLY BID TAKING NEBULIZER . DEVICE DIRECTED INHALED DIRECTED (DX. J41.1) TAKING NEBULIZER AIR TUBE/PLUGS . MISCELLANEOUS DIRECTED INHALED DIRECTED (J41.1) TAKING ASPIR-81 81 MG TABLET DELAYED RELEASE 1 TABLET ORALLY ONCE A DAY TAKING BLOOD GLUCOSE METER . KIT DIRECTED TO CHECK FSBS QAC TID - (DX E11.319) TAKING MONTELUKAST SODIUM 10 MG TABLET 1 TABLET IN THE EVENING ORALLY ONCE A DAY TAKING INSULIN SYRINGE/NEEDLE 28G X 1/2 MISCELLANEOUS DX: Z72.0 SUBCUTANEOUSLY BID TAKING TOUJEO SOLOSTAR PENS 450 U/1.5ML PREFILLED PENS 40 UNITS IN THE MORNING SQ DAILY TAKING LOSARTAN POTASSIUM 50 MG TABLET 1 TAB(S) ORALLY BID TAKING WELLBUTRIN XL 150 MG TABLET EXTENDED RELEASE 24 HOUR 1 TABLET IN THE MORNING ORALLY ONCE A DAY TAKING FLONASE 50 MCG/ACT SUSPENSION 1 SPRAY IN EACH NOSTRIL NASALLY TWICE A DAY TAKING SALINE NASAL SPRAY 0.65 % SOLUTION DIRECTED NASALLY FOUR TIMES DAILY TAKING MUCINEX DM MAXIMUM STRENGTH 60-1200 MG TABLET EXTENDED RELEASE 12 HOUR 1 TABLET NEEDED ORALLY TWICE A DAY TAKING PROAIR HFA 108 (90 BASE) MCG/ACT AEROSOL SOLUTION 2 PUFFS NEEDED INHALATION EVERY 4 HRS TAKING BENTYL 10 MG CAPSULE 1 CAPSULE PRN ORALLY FOUR TIMES A DAY TAKING VITAMIN B-2 100 MG TABLET 1 TABLET WITH A MEAL ORALLY ONCE A DAY TAKING IPRATROPIUM-ALBUTEROL 0.5-2.5 (3) MG/3ML SOLUTION 3 ML PRN INHALATION EVERY 6 HRS TAKING CARVEDILOL 25 MG TABLET 1 TABLET WITH FOOD ORALLY TWICE A DAY TAKING ARNUITY ELLIPTA 200 MCG/ACT AEROSOL POWDER BREATH ACTIVATED 1 PUFF INHALATION ONCE A DAY TAKING ROPINIROLE HCL 2 MG TABLET 1 TAB(S) ORALLY BID TAKING BATH/SHOWER SEAT - MISCELLANEOUS DIRECTED DUE TO 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 R26.81) DIRECTED TAKING MAGNESIUM 400 MG CAPSULE 1 CAP ORALLY BID TAKING GABAPENTIN 400 MG CAPSULE 1 CAPSULE ORALLY THREE TIMES A DAY TAKING DILAUDID 2 MG TABLET 1 ORALLY THREE TIMES DAILY MDD3 TAKING VITAMIN D (ERGOCALCIFEROL) 95890 UNIT CAPSULE 1 CAPSULE ORALLY WEEKLY TAKING PEN NEEDLES 31G X 6 MM MISCELLANEOUS ONE APPLICATION SUBCUTANEOUSLY DAILY E11.319 TAKING MECLIZINE HCL 25 MG TABLET 1 TABLET NEEDED ORALLY THREE TIMES DAILY TAKING CLOTRIMAZOLE 1 % CREAM 1 APPLICATION TO AFFECTED AREA ON ABDOMEN UNTIL 2 DAYS AFTER RASH CLEARS EXTERNALLY TWICE A DAY TAKING HYDRALAZINE HCL 10 MG TABLET 1 TABLET ORALLY FOUR TIMES A DAY TAKING ALCOHOL PADS 70 % PAD DIRECTED DX E11.9 TO USE PRIOR TO CHECKING BLOOD GLUCOSE TID TID PRIOR TO MEALS TAKING CETIRIZINE HCL 10 MG TABLET 1 TABLET NEEDED ORALLY ONCE A DAY TAKING OMEPRAZOLE 20MG 20MG CAPSULE 1 CAP(S) ORALLY DAILY TAKING LANCETS . MISCELLANEOUS DIRECTED TO CHECK FSBS QAC TID (DX E11.319) TAKING BLOOD GLUCOSE TEST STRIP . STRIP 1 STRIP DIRECTED IN VITRO QAC TID (DX. E11.319) TAKING LASIX 80 MG TABLET 1 TABLET ORALLY ONCE A DAY TAKING CLONAZEPAM 1 MG TABLET 1 TABLET PRN ORALLY QHS (MDD 1) TAKING ZOFRAN ODT 4 MG TABLET DISPERSIBLE 1 TABLET PRN NAUSEA ORALLY EVERY 8 HRS NOT-TAKING NOVOLOG 100 UNIT/ML SOLUTION FSBS 150-200 3U, 201-250 6U, 251-300 9U, 301-350 12U, 351-400 15U, OVER 400 18U SUBCUTANEOUS PRIOR TO DINNER (MDD 18U) NOT-TAKING CETIRIZINE HCL 10 MG TABLET 1 TABLET ORALLY ONCE A DAY NOT-TAKING DUONEB 0.5-2.5 (3) MG/3ML SOLUTION 3 ML NEDED INHALATION FOUR TIMES A DAY NOT-TAKING PREDNISONE 20 MG TABLET 1 TABLET ORALLY ONCE A DAY NOT-TAKING NORCO 5-325 MG TABLET 1 TABLET NEEDED ORALLY-ER EVERY 6 HRS NOT-TAKING LEVAQUIN 750 MG TABLET 1 TABLET ORALLY ONCE A DAY NOT-TAKING AUGMENTIN 875-125 MG TABLET 1 TABLET ORALLY EVERY 12 HRS NOT-TAKING PREDNISONE 20 MG TABLET 1 TABLET ORALLY BID NOT-TAKING TRAMADOL HCL 50 MG TABLET 1/2 TABLET NEEDED ORALLY EVERY 8 HRS (MDD 3) NOT-TAKING DIFLUCAN 150 MG TABLET 1 TABLET ORALLY ONCE NOT-TAKING AUGMENTIN 875-125 MG TABLET 1 TABLET ORALLY EVERY 12 HRS NOT-TAKING TRADJENTA 5MG TABLET 1 TAB ORAL DAILY NOT-TAKING POTASSIUM CHLORIDE ER 20 MEQ TABLET EXTENDED RELEASE 1 TAB(S) ORALLY DAILY MEDICATION LIST REVIEWED AND RECONCILED WITH THE PATIENT PAST MEDICAL HISTORY DIABETES MELLITUS TYPE 2 WITHOUT COMPLICATION HYPERTENSION DEPRESSION KIDNEY STONES SCIATICA SEES ONCOLOGIST FOR LOW BLOOD PLT COUNT MILD RENAL FAILURE DUE TO MEDICATIONS ARTHRITIS CHRONIC NECK PAIN HYPOMAGNESEMIA DEPENDENT EDEMA UTI HYPOPROTEINEMIA RESTLESS LEGS GASTROESOPHAGEAL REFLUX DISEASE WITHOUT ESOPHAGITIS TOBACCO ABUSE PVC (PREMATURE VENTRICULAR CONTRACTION) HEART PALPITATIONS ENLARGED SPLEEN IMFLAMMED COLON ALLERGIES AVANDIA: RASH: ALLERGY GLUCOPHAGE: RASH: ALLERGY PYRIDIUM: BLEEDING: ALLERGY DILTIAZEM HCL: SWELLING: SIDE EFFECTS LISINOPRIL: COUGH: SIDE EFFECTS SOCIAL HISTORY GENERAL: TOBACCO USE ARE YOU A:CURRENT SMOKER LEARNING BARRIERS / SPECIAL NEEDS ORIENTED TO PLAN OF CARE: PATIENT, PAIN MANAGEMENT PATIENT, ORIENTED TO PLAN OF CARE: PATIENT, PAIN MANAGEMENT PATIENT. NEW PATIENT PAIN DIARY TODAY'S VISITNOTES FROM 0-10, WHAT LEVEL IS YOUR PAIN TODAY?0 PAIN CLINIC PFS, CLERGY, PUBLIC HEALTH REFERRALS PFS REFERRAL NEEDED?NO CLERGY REFERRAL NEEDED?NO PUBLIC HEALTH REFERRAL NEEDED?NO WAS THE PROVIDER NOTIFIED OF ANY PERTINENT INFO?NO PFS REFERRAL NEEDED?NO CLERGY REFERRAL NEEDED?NO PUBLIC HEALTH REFERRAL NEEDED?NO WAS THE PROVIDER NOTIFIED OF ANY PERTINENT INFO?NO REVIEW OF SYSTEMS CONSTITUTIONAL: ANY CHANGE IN YOUR MEDICAL CONDITION? NO . CHILLS NO . FEVER NO . INFECTION: DO YOU HAVE NEW INFECTIONS? NO . DO YOU HAVE HISTORY OF MRSA? NO . MUSCULOSKELETAL: ANY NEW PATTERNS OF PAIN OR NUMBNESS? NO . GASTROENTEROLOGY: ANY NEW CHANGE IN BOWEL CONTROL? NO . GENITOURINARY: ANY NEW CHANGE IN BLADDER CONTROL? NO . IS THERE A CHANCE YOU COULD BE ? NO . HEMATOLOGY/LYMPH: DO YOU TAKE ANY BLOOD THINNERS? (FOR EXAMPLE- COUMADIN, PLAVIX, AGGRENOX, PLATEL, PRADAXA, OR XARELTO) NO . WHEN WAS YOUR LAST DOSE? DATE: TIME: . NEUROLOGY: HAVE YOU FALLEN IN THE PAST 6 MONTHS? NO . ANY NEW EXTREMITY NUMBNESS OR WEAKNESS? NO . CARDIOLOGY: DO YOU HAVE A PACEMAKER OR DEFIBRILLATOR? NO . RESPIRATORY: HAVE YOU BEEN SICK IN THE PAST WEEK? NO . FEVER NO . FLU LIKE SYMPTOMS? NO . COUGH NO . INTEGUMENTARY: DO YOU HAVE ANY RASHES OR OPEN SORES? NO . ALLERGIC/IMMUNO: ARE YOU ALLERGIC TO SHELLFISH OR IV DYE? NO . ANY NEW ALLERGIES? NO . PSYCHIATRIC: DO YOU HAVE THOUGHTS OF HURTING YOURSELF OR SOMEONE ELSE? NO . ARE YOU ABUSED, NEGLECTED, OR IN AN UNSAFE ENVIRONMENT? NO . ENDOCRINOLOGY: ARE YOU DIABETIC? YES . OTHER: DO YOU NEED ANY PRESCRIPTIONS? YES DILAUDID . IF YES, PLEASE LIST: ____ . ANY NEW PROBLEMS WITH YOUR MEDICATIONS? NO . WHEN DID YOU LAST EAT? ____ . WHEN DID YOU LAST DRINK? ____ . WHAT DID YOU LAST DRINK? ____ . NAME OF PERSON DRIVING YOU HOME? ____ . DO YOU HAVE ANY OTHER QUESTIONS OR CONCERNS YES &QUOT;WILL TALK WITH SHANNEN&QUOT; . REVIEWED BY: PROVIDER: SHANNEN PHAM . VITAL SIGNS WT 343.8 LBS, HT 72 IN, BMI 46.62 INDEX, BP 137.64 MM HG, HR 80 /MIN, RR 18 /MIN, TEMP 98.9 F, OXYGEN SAT % 95%, NA INITIALS [id number], REVIEWED BY: KG. EXAMINATION GENERAL EXAMINATION: HEENT:HEAD:, NORMOCEPHALIC, EYES:, EYES NORMAL, NOSE:, NOSE CLEAR, THROAT: NORMAL. LUNGS:LUNG SOUNDS ARE CLEAR. HEART:HEART RATE REGULAR. ABDOMEN:SOFT AND NOT TENDER, NON-DISTENDED. MUSCULOSKELETAL:*. LUMBAR SACRAL SPINEMUSCLE STRENGTH TESTING 3/5 BILATERAL LOWER EXTREMITIES. PALPATION: POSITIVE FOR PAIN OVER L/S SPINE. POSITIVE FOR PAIN OVER L/S PARASPINALS. THORACIC SPINENEGATIVE FOR PAIN WITH PALPATION OF THORACIC SPINE. NEGATIVE FOR PAIN WITH PALPATION OF THORACIC PARASPINAL. CERVICAL+ FOR PAIN WITH PALPATION OF CERVICAL SPINE. + FOR PAIN WITH PALPATION OF CERVICAL PARAASPINALS. + FOR PAIN WITH PALPATION OF TRAPEZIUS BILAT. SKIN:NORMAL, NO RASH. NEUROLOGIC EXAM:ALERT AND ORIENTED X 3, DTRS 1-2+ IN ALL 4 EXTREMITIES, DENIES UPPER EXTREMETIES SENSORY LOSS, DENIES LOWER EXTREMETIES SENSORY LOSS. DIAGNOSTIC:MRI L/S [id number]. ASSESSMENTS NEUROPATHIC PAIN - M79.2 (PRIMARY) CHRONIC PAIN SYNDROME - G89.4 CHRONIC PRESCRIPTION OPIATE USE - Z79.891 TREATMENT NEUROPATHIC PAIN REFILL DILAUDID TABLET, 2 MG, 1, ORALLY, THREE TIMES DAILY MDD3, 30 DAY(S), 90, REFILLS 0 NOTES: ISTOP REGISTRY REVIEWED AND DEMNOSTRATES COMPLLIANCE. BRINGS IN MEDICATIONS WHICH IS APPROPRIATE FOR WHAT WAS DISPENSED. RECENT URINE TOXICOLOGY REVIEWED. NO UNAUTHORIZED MEDICATIONS. NO ILLICIT SUBSTANCES AND PRESCRIBED MEDICATIONS WERE PRESENT. , RISKS AND BENEFITS OF NARCOTIC/OPIOD MEDICATIONS WERE REVIEWED WITH PATIENT - THIS INCLUDES BUT IS NOT LIMITED TO RISK OF DEPENDANCE/DEVELOPMENT OF ADDICTION, MOOD DISTURBANCE AND DEPRESSION, OSTEOPOROSIS, HORMONAL AND LABIDAL CHANGES, RESPIRATORY DEPRESSION AND . PATIENT IS ADVISED NOT TO DRIVE WHILE ON THESE MEDICATIONS. REFERRAL TO:PHYSIOTHERAPY REASON:[id number] X6WK RECONDITIONING/CHRONIC LBP/ARTHRITIS PROCEDURE CODES FA211 ESTABILISHED PATIENT [facility] CHARGE DISPOSITION & COMMUNICATION FOLLOW UP 2 MONTHS ELECTRONICALLY SIGNED BY VERO VALDERRAMA ON 09/25/2016 AT 09:03 AM EDT DISCLAIMER : THIS IS A VISIT SUMMARY EXTRACTED FROM THE [employer] CHART. IT IS NOT A COPY OF THE [employer] PROGRESS NOTE. MTDD
== END ==
LOC: M PAIN 10:40
PROVIDERS: ATTEND Nurse Practitioner Family
DX: Z09 Encounter for follow-up examination after completed treatment for conditions other than malignant neoplasm (principal); G89.4 Chronic pain syndrome; M79.2 Neuralgia and neuritis, unspecified; E11.9 Type 2 diabetes mellitus without complications; I10 Essential (primary) hypertension; F32.9 Major depressive disorder, single episode, unspecified; M19.90 Unspecified osteoarthritis, unspecified site; E83.42 Hypomagnesemia; K21.9 Gastro-esophageal reflux disease without esophagitis; G25.81 Restless legs syndrome; F17.200 Nicotine dependence, unspecified, uncomplicated; J44.1 Chronic obstructive pulmonary disease with (acute) exacerbation; Z88.8 Allergy status to other drugs, medicaments and biological substances; Z79.82 Long term (current) use of aspirin; Z79.4 Long term (current) use of insulin; Z79.899 Other long term (current) drug therapy

== ENCOUNTER → 2016-09-30 | Outpatient (CLI) | payer OTHER ==
--- NOTE | 2016-09-30 15:54 | REP ---
Clinical: Increasing pain with decreasing range of motion. Technique: Internal rotation, external rotation, and Y view of the right shoulder. Comparison: 03/20/2015. Findings: Moderate progressive osteoarthritic changes at the acromioclavicular joint include cortical irregularity and subtle spurring. The glenohumeral joint appears relatively intact and normal for age. No significant periarticular calcifications noted. No evidence for acute fracture or dislocation. Impression: Moderate osteoarthritic changes at the acromioclavicular joint. Signed by Edward Schmidt MD 09/30/2016 03:45 P
== END ==
LOC: M LRY 15:28
PROVIDERS: ATTEND Family Medicine
DX: M19.011 Primary osteoarthritis, right shoulder (principal); M25.511 Pain in right shoulder

== ENCOUNTER 2016-10-09 14:56 | Inpatient (IN) | payer OTHER ==
[~2016-10-09] VITALS: Ht 182.9 cm; Wt 152.9 kg
[~2016-10-09 14:56] MED LIST changes: -ARNU1INH3 INH; -BUPR150T3 PO; -BUPR75TA5 PO; -CARV25TA PO; -CETI10TA PO; -DICY10CA13 PO; -DUONSOL NEB; -FLUT11IN INH; -FURO1TAB15 PO; -HYDR-4266 PO; -HYDR2TAB2 PO; -INSUH10VL SC; -IPRASOL4 INH; -LOSA50TA20 PO; -MAGN400T5 PO; -MONT10TA2 PO; -NOVOLOG SLIDING SC; -PROA1AER INH; -RIBO100C PO; -ROPI4TAB PO; -SALI0.653; -SENN8.6T7 PO; -TOUJ1.2I SC; -ZOFR4TAB3 PO
[2016-10-09] MEDS ORDERED: CETI10TA PO (15:31)
[2016-10-09] MEDS ORDERED: GABA-283 PO (15:31)
[2016-10-09] MEDS ORDERED: HYDR-4266 PO (15:31)
[2016-10-09] MEDS ORDERED: FURO1TAB15 PO (15:31)
[2016-10-09] MEDS ORDERED: ROPI4TAB PO (15:31)
[2016-10-09] MEDS ORDERED: MONT10TA2 PO (15:31)
[2016-10-09] MEDS ORDERED: LOSA50TA20 PO (15:31)
[2016-10-09] MEDS ORDERED: CARV25TA PO (15:31)
[2016-10-09] MEDS ORDERED: FLUT11IN INH (15:31)
[2016-10-09] MEDS ORDERED: BUPR75TA5 PO (15:31)
[2016-10-09] MEDS ORDERED: DUONSOL NEB (15:32)
[2016-10-09] MEDS ORDERED: NOVOLOG SLIDING SC (15:32)
[2016-10-09] MEDS ORDERED: PROA1AER INH (15:32)
[2016-10-09] MEDS ORDERED: SENN8.6T7 PO (15:32)
[2016-10-09] MEDS ORDERED: TOUJ1.2I SC (15:32)
[2016-10-09] MEDS ORDERED: DICY10CA13 PO (15:32)
[2016-10-09] MEDS ORDERED: HYDR2TAB2 PO (15:32)
[2016-10-09] MEDS ORDERED: ZOFR4TAB3 PO (15:32)
[2016-10-09] MEDS ORDERED: RIBO100C PO (15:32)
[2016-10-09] MEDS ORDERED: PROMETHAZINE INJ 25 MG/ML VIAL (J2550) IV ONE (15:45)
[2016-10-09 16:07] LABS: BASO % 0.7 % (0.0-1.0); EOS # 0.1 K/mm3 (0.0-0.50); EOS % 3.3 % (0.0-3.0); LARGE UNSTAINED CELL # 0.1 K/mm3 (0.0-0.4); LARGE UNSTAINED CELL % 1.3 % (0.0-4.0); LYMPH # 1.2 K/mm3 (1.5-4.5); LYMPH % 34.8 % (24.0-44.0); MEAN CORPUSCULAR HEMOGLOBIN 33.7 pg (27.0-33.0); MEAN CORPUSCULAR HGB CONC 34.8 g/dl (32.0-36.5); MEAN CORPUSCULAR VOLUME 96.8 fl (80.0-96.0); MONO # 0.2 K/mm3 (0.0-0.8); NEUTROPHILS # 1.9 K/mm3 (1.8-7.7); NEUTROPHILS % 54.9 % (36.0-66.0); PLATELET COUNT, AUTOMATED 110 k/mm3 (150-450); RED CELL DISTRIBUTION WIDTH 13.3 % (11.5-14.5); WHITE BLOOD COUNT 3.4 K/mm3 (4.0-10.0)
--- NOTE | 2016-10-09 16:07 | REP ---
Chest one-view HISTORY: Cough Comparison: 08/12/2016 The lungs are clear. The heart is normal in size. The pulmonary vasculature is normal in appearance. Impression: No acute disease. Signed by Jay Dueñas MD 10/09/2016 03:59 P
[2016-10-09 16:26] LABS: ALBUMIN 2.7 GM/DL (3.2-5.2); ALBUMIN/GLOBULIN RATIO 0.84 (1.00-1.93); ALKALINE PHOSPHATASE 77 U/L (45-117); ALT/SGPT 15 U/L (12-78); ANION GAP 7 MEQ/L (8-16); AST/SGOT 17 U/L (15-37); BILIRUBIN,DIRECT 0.1 MG/DL (0.0-0.2); BILIRUBIN,TOTAL 0.3 MG/DL (0.2-1.0); BLOOD UREA NITROGEN 44 MG/DL (7-18); CALCIUM LEVEL 8.1 MG/DL (8.5-10.1); CARBON DIOXIDE LEVEL 21 MEQ/L (21-32); CHLORIDE LEVEL 113 MEQ/L (98-107); CREATININE FOR GFR 1.44 MG/DL (0.55-1.02); GLOMERULAR FILTRATION RATE 41.2 (>58); GLUCOSE, FASTING 214 MG/DL (70-105); POTASSIUM SERUM 4.3 MEQ/L (3.5-5.1); SODIUM LEVEL 141 MEQ/L (136-145); TOTAL PROTEIN 5.9 GM/DL (6.4-8.2)
[2016-10-09] MEDS: HumaLOG INSULIN (NovoLOG) PER UNIT SC SCH ×2 (17:30→21:36)
--- NOTE | 2016-10-09 17:57 | REP ---
Bilateral lower extremity deep vein duplex ultrasound: The deep veins demonstrate normal compression, normal Doppler color flow and normal Doppler waveforms with respiration and augmentation from the popliteal vein to the common femoral vein bilaterally . Impression: There is no deep vein thrombus on the right or the left . Signed by Pedro Pablo Agarwal MD 10/09/2016 05:48 P
[2016-10-09] MEDS ORDERED: GLUCOSE 4 GM CHEW TABLET PO PRN (18:30)
[2016-10-09] MEDS ORDERED: DEXTROSE 50% 50 ML SYRINGE IV PRN (18:30)
[2016-10-09] MEDS ORDERED: FUROSEMIDE 40 MG/4 ML VIAL (J1940) IV ONE (18:30)
[2016-10-09] MEDS ORDERED: GLUCAGON FOR INJ 1 MG VIAL (J1610) SC PRN (18:30)
[2016-10-09 18:43] LABS: PHOSPHORUS LEVEL 4.4 MG/DL (2.5-4.9)
[2016-10-09] MEDS ORDERED: MAGN400T5 PO (18:58)
[2016-10-09] MEDS ORDERED: BUPR150T3 PO (18:58)
[2016-10-09] MEDS ORDERED: INSUH10VL SC (19:01)
[2016-10-09] MEDS ORDERED: IPRASOL4 INH (19:01)
[2016-10-09] MEDS ORDERED: SALI0.653 (19:03)
[2016-10-09] MEDS ORDERED: ARNU1INH3 INH (19:04)
[2016-10-09] MEDS ORDERED: OMEP20CA3 PO (19:04)
--- NOTE | 2016-10-09 19:10 | REPUSA ---
CLINICAL HISTORY: Renal failure. TECHNIQUE: Realtime sonographic images were obtained in multiple projections. COMMENTS: Both kidneys are echogenic compatible with medical renal disease. The right kidney measures 13.3 cm and the left kidney measures 12.1 cm. Both kidneys are free of hydr onephrosis. There is no evidence of solid or cystic mass. There is no perinephric fluid. There is no renal calculus. Bladder: No wall thickening, intraluminal mass, or diverticula. IMPRESSION: Both kidneys are echogenic compatible with medical renal disease. Thank you for your kind referral of this patient.
--- NOTE | 2016-10-09 19:12 | ECGEPIP ---
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
[2016-10-09] MEDS: ACETAMINOPHEN TAB 650MG DOSE (2X325MG) PO PRN (19:18)
[2016-10-09] MEDS ORDERED: ALBUTEROL 90 MCG/ACT 8GM HFA INHALER INH PRN (19:30)
[2016-10-09 19:55] LABS: RETIC HEMOGLOBIN CONTENT CHr 35.9 PG (24-36); RETICULOCYTE ABSOLUTE ADVIA212 70 x10(9)/L (17-77)
[2016-10-09 19:59] LABS: TOTAL IRON BINDING CAPACITY 268 UG/DL (250-450)
[2016-10-09 20:30] LABS: REASON FOR REVIEW COMPREHENSIVE REVIEW
[2016-10-09 21:25] VITALS: BP 210/110
--- NOTE | 2016-10-09 21:40 | REPUSA ---
CT of the abdomen and pelvis without contrast Clinical statement: Pain. Technique: Multiple axial CT images were obtained from the base of the lungs to the floor of the pelv is utilizing 5 mm axial slices without administration of contrast. Coronal and sagittal reconstructio ns were also obtained. Comparison: 05/03/2016. Findings: Chest: The visualized lung bases are clear. Abdomen: The kidneys are normal in size bilaterally. There is no evidence of hydronephrosis or nephro lithiasis. The liver measures 24.5 cm in diameter; the spleen measures 18.1 cm in diameter. The liver , spleen, pancreas, and adrenal glands are otherwise unremarkable. The aorta demonstrates normal jarrell brittney and contour. There is no abdominal lymphadenopathy or ascites. There is an umbilical hernia conta ining only omental fat. Pelvis: The bowel is unremarkable, with no obstructive or inflammatory changes. The urinary bladder i s within normal limits. There is no pelvic lymphadenopathy or ascites. The other pelvic structures ap pear unremarkable. Bones: There are no suspicious osseous abnormalities seen. Moderately severe degenerative disc diseas e with disc osteophyte complexes are seen throughout the lumbar spine are stable. Impression: 1. Hepatosplenomegaly. 2. No obstructive or inflammatory bowel changes. 3. No evidence of hydronephrosis or nephrolithiasis. 4. Small stable umbilical hernia containing only omental fat. 5. Stable moderate spondylosis of the spine.
--- NOTE | 2016-10-09 21:40 | HPE ---
DATE OF ADMISSION: 10/09/2016 PRIMARY CARE PROVIDER: Dr. Woodrow Tan INPATIENT HOSPITALIST: Dr. Marcello Orellana CHIEF COMPLAINT: Lower extremity edema. 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 Oates. Has been having colonic spasms for the past few months and underwent colonoscopy, esophagogastroduodenoscopy (EGD) and CT of the abdomen and pelvis with liver cirrhosis on imaging. The patient was seen by Dr. Oates and felt that there was no liver cirrhosis, but no liver biopsy was performed. She had increased lower extremity edema for the past few months and went to her [employer] who suggested for her to call Dr. Tan who was unavailable in the office. She then called the office and Dr. Acevedo who was available, suggested ER evaluation. She was found to have systolic pressure of 97/53 at her [employer] office with recent increase in her Coreg to 25 twice a day for the past month as well as losartan 50 twice a day and Lasix 80 daily. Despite these changes and hydralazine every 25 four times a day the patient has had increasing lower extremity edema. She states that occasionally she gets dizziness. She has had weight gain, normally weighs around 290 pounds. She has had worsening exercise intolerance and increasing shortness of breath as she ambulates with decrease in activity. No chest pain, pressure or tightness. Denies any orthopnea, paroxysmal nocturnal dyspnea. No prior history of coronary artery disease (CAD), myocardial infarction (RI) or congestive heart failure in the past. The patient is compliant with a low salt diet and makes her own meals most of the time. She is compliant with all her medications. Recent change was about a month ago. She denies any history of recent falls or passing out, but does complain of some dizziness and low blood pressure due to increased dosage of her blood pressure medication. The patient denies any hematuria. She denies any history of sleep apnea. Denies any NSAID use, ibuprofen, Aleve or naproxen. Denies any diarrhea or decrease in oral intake. In the ER she was found to have acute kidney injury with a creatinine of 1.4, baseline creatinine is 0.7 to 0.8 with prior history of kidney stones in the past, which is nonrecurrent and 3+ pitting edema clinically. No jugular venous distention. Chest x-ray negative for CHF. Renal ultrasound showing medical renal disease with no hydronephrosis or kidney stones. Lower extremity Doppler is negative for deep venous thrombosis (DVT). Hospitalist service was called for admission for treatment for lower extremity DVT and evaluation of patient's chronic edema. PAST MEDICAL HISTORY: Nonalcoholic steatohepatitis. Follows with Dr. Oates, pattern wheel maker in [place]. Liver cirrhosis by imaging. History of kidney stones in the past. Difficult to control hypertension. Asthma. Restless leg syndrome. Chronic lower extremity edema. Chronic colonic spasms. Type 2 diabetes. Chronic constipation. Obesity. PAST SURGICAL HISTORY: section 1987. Calcium deposit resection of right breast 1993. Cholecystectomy 1993. Endometrial ablation 1998. Abscess removed from the left lower extremity 2009, 2010. Left rotator cuff arthroscopy 2010. Deviated septum with sinus surgery 2012. Oil cyst removal left breast 2012. Right Achilles tendon in surgery with reattachment of the tendon 2013. 1 cm kidney stone with extraction, with stent placement January 2015. Cardiac catheterization 2015 with no blockage. Colonoscopy/endoscopy 2016. SOCIAL HISTORY: The patient denies any alcohol use. Disabled. Emergency contact is healthcare proxy, son, Jabari Devi. Cell phone number is [phone]. ALLERGIES: AVANDIA, GLUCOPHAGE, PERIDIUM and DILTIAZEM. HOME MEDICATIONS: - Hydralazine 25 mg four times a day - Coreg 25 twice a day - Flovent 2 puffs daily - montelukast 10 daily - losartan 50 twice a day - cetirizine 10 daily - ropinirole 4 mg at bedtime - Lasix 80 daily - bupropion 150 daily - gabapentin 400 mg three times a day - dicyclomine 10 mg four times a day - DuoNeb as needed every 4 hours - Toujeo 44 units subcutaneous daily - insulin sliding scale - ProAir 2 puffs every 4 as needed - Senokot 1 tablet twice a day - riboflavin 100 daily - hydromorphone 2 mg three times a day - Zofran 4 mg every 4 as needed for nausea FAMILY HISTORY: Mother age 86, with CHF, CAD, perforated ulcers, hypertension. Father age 89 with CHF, diabetic, hypertension, COPD. One brother age 64, CAD, RI, age 55, diabetic, hypertension; another brother, age 59, diabetic, hypertension. Sister age 53, pancreatic cancer, diabetic, hypertension, obesity and cancer. Another sister age 71, CAD, RI, diabetic, hypertensive heart disease. Another sister, age 73, diabetic and hypertension, sleep apnea. Son, age 29. REVIEW OF SYSTEMS: Per HPI. 12-point system otherwise negative. PHYSICAL EXAMINATION: Temperature 95.7, pulse 70, respiratory rate 18, blood pressure 130/60, 98% on room air. GENERAL: The patient is awake, alert, oriented times three. Anicteric sclera. No jaundice. No jugular venous distention, thyromegaly, cervical lymphadenopathy. No respiratory distress. Speaks in full sentences. No pallor. LUNGS: Clear to auscultation. No wheezing, rales or rhonchi. HEART: S1, S2, sinus rhythm. No murmurs, rubs or gallops. Distant heart sounds. ABDOMEN: Slightly tender in the left and right upper quadrant. No rebound, guarding, positive bowel sounds. Slight hepatosplenomegaly. No fluid wave. EXTREMITIES: 3+ pitting edema to the sacrum. EKG: Sinus rhythm, ventricular rate of 70, moderate intraventricular conduction delay. SC interval 167. QT 390. QTC 412. LABORATORY DATA: White count 3.4, hemoglobin 11, hematocrit 31, platelet count 110. Sodium 141, potassium 4.3, chloride 113, bicarbonate 21, BUN 44, creatinine 1.4, glucose of 214. Calcium 8.1. Total bilirubin 0.3. Direct bilirubin 8.1. AST 17, ALT 15, alkaline phosphatase 77. Total CK 80, MB fraction of 2. Troponin less than 0.02. BNP 219. Total protein 5.9, albumin of 2.7. IMAGING STUDIES: CT abdomen and pelvis July 22, 2016 shows lobulated liver suggesting cirrhosis. No intra or extrahepatic biliary ductal dilatation. Spleen is enlarged measuring 16 cm. 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 Status post cholecystectomy. Pancreas is normal size, contour and attenuation characteristics. No evidence of adrenal mass. Kidneys are normal in size. No renal or ureteral calculi are identified. No hydroureter or hydronephrosis. No evidence of appendicitis. No evidence of pleural or parenchymal mass. No pleural effusion. Chest x-ray 10/09/2016: No acute disease. Venous Doppler of bilateral lower extremities: No deep venous thrombosis (DVT). Renal ultrasound shows both kidneys are echogenic compatible with medica renal disease. ASSESSMENT AND PLAN: This is a 50-year-old morbidly obese female with BMI of 48.6. History of nonalcoholic steatohepatitis, liver cirrhosis by imaging. Follows with Dr. Oates in [place], gastroenterology, hypertension, asthma, hypercholesterolemia, restless leg syndrome, colonic spasms, type 2 diabetes, chronic constipation, history of kidney stones presents to the emergency room with several month history of increasing lower extremity edema. Was found to have acute kidney injury and sent to the emergency room for further evaluation. She will be admitted as an inpatient for two midnights. Assigned to hospitalist Dr. Marcello Orellana at 10:00 pm on 10/09/2016 for the following issues: 1. Acute kidney injury. The patient is clinically fluid overloaded. Most likely secondary to decrease in circulating, ineffective circulating volume. Renal ultrasound shows no acute obstruction. No kidney stones or hydronephrosis. The patient will be placed on intravenous Lasix for diuresis. Monitor renal function with repeat basic metabolic panel. Avoid other nephrotoxins, renally dose all medications and hold Lasix and other blood pressure medications for systolic pressure less than 100 and to hold Lasix for creatinine greater than 1.6. Strict Intake and output (I and O), daily weights, Bowens catheter for strict monitoring. Check UA for casts and for proteinuria. 2. Chronic lower extremity edema. Most likely secondary to chronic liver disease with hyperalbuminemia. At this time, the patient will be diuresed with intravenous Lasix with holding parameters. Check 2D echo, rule out diastolic heart failure. In light of patient's morbid obesity, rule out sleep apnea and cor pulmonale. Cycle cardiac markers every 6 hourly. Repeat 12-lead EKG in the morning. 3. For shortness of breath. Rule out acute ischemic symptoms. Rule out sleep apnea with nocturnal pulse oximetry. 4. Type 2 diabetes. In light of current renal dysfunction will keep the patient on insulin for now. Consistent carbohydrate and renal diet. Sliding scale with coverage and hypoglycemic protocol. Check A1c and lipid profile in the morning. 5. Hypertension. Continue home medications with holding parameters for systolic pressure less than 120. 6. Restless leg syndrome, chronic. 7. History of asthma. Resume home Singulair, Proventil. 8. Chronic constipation. Continue Senokot. 9. Colonic spasms. Continue on Bentyl. 10. Deep venous thrombosis (DVT) prophylaxis. Lovenox renally dosed. 11. Pancytopenia. Most likely secondary to chronic liver disease. No acute indication for transfusion. Monitor for bleeding.
[2016-10-09] MEDS: rOPINIRole 1MG TAB PO SCH (21:42)
[2016-10-09] MEDS: SENOKOT S TAB PO SCH (21:42)
[2016-10-09] MEDS: GABAPENTIN 400 MG CAP PO SCH (21:42)
[2016-10-09] MEDS: **hydrALAZINE HCL** 25 MG TAB PO SCH (21:43)
[2016-10-09] MEDS: CARVedilol 12.5 MG TAB PO SCH (21:43)
[2016-10-09] MEDS: HYDROmorphone 2 MG TAB PO SCH (21:44)
[2016-10-09] MEDS: DICYCLOMINE 10 MG CAP PO SCH (22:10)
[2016-10-10] VITALS: BP 140/60
[2016-10-10] MEDS: FUROSEMIDE 20 MG/2 ML VIAL (J1940) IV SCH ×4 (00:10→17:05)
[2016-10-10] MEDS: clonazePAM 1 MG TAB PO PRN ×2 (00:10→20:43)
[2016-10-10 00:58] LABS: ANION GAP 5 MEQ/L (8-16); BLOOD UREA NITROGEN 44 MG/DL (7-18); CALCIUM LEVEL 8.4 MG/DL (8.5-10.1); CARBON DIOXIDE LEVEL 24 MEQ/L (21-32); CHLORIDE LEVEL 112 MEQ/L (98-107); CREATININE FOR GFR 1.37 MG/DL (0.55-1.02); GLOMERULAR FILTRATION RATE 43.6 (>58); GLUCOSE, FASTING 191 MG/DL (70-105); POTASSIUM SERUM 4.4 MEQ/L (3.5-5.1); SODIUM LEVEL 141 MEQ/L (136-145)
[2016-10-10 05:25] VITALS: BP 160/76
[2016-10-10 06:41] LABS: BASO % 0.8 % (0.0-1.0); EOS # 0.1 K/mm3 (0.0-0.50); EOS % 3.3 % (0.0-3.0); LARGE UNSTAINED CELL % 1.5 % (0.0-4.0); LYMPH % 39.2 % (24.0-44.0); MEAN CORPUSCULAR HEMOGLOBIN 33.5 pg (27.0-33.0); MEAN CORPUSCULAR HGB CONC 34.3 g/dl (32.0-36.5); MEAN CORPUSCULAR VOLUME 97.7 fl (80.0-96.0); MONO # 0.1 K/mm3 (0.0-0.8); MONO % 5.4 % (0.0-5.0); NEUTROPHILS # 1.3 K/mm3 (1.8-7.7); NEUTROPHILS % 49.8 % (36.0-66.0); PLATELET COUNT, AUTOMATED 103 k/mm3 (150-450); RED CELL DISTRIBUTION WIDTH 13.2 % (11.5-14.5); WHITE BLOOD COUNT 2.5 K/mm3 (4.0-10.0)
[2016-10-10 07:00] LABS: ALBUMIN 2.4 GM/DL (3.2-5.2); ALBUMIN/GLOBULIN RATIO 0.86 (1.00-1.93); ALKALINE PHOSPHATASE 66 U/L (45-117); ALT/SGPT 13 U/L (12-78); ANION GAP 8 MEQ/L (8-16); AST/SGOT 13 U/L (15-37); BILIRUBIN,TOTAL 0.4 MG/DL (0.2-1.0); BLOOD UREA NITROGEN 42 MG/DL (7-18); CARBON DIOXIDE LEVEL 21 MEQ/L (21-32); CHLORIDE LEVEL 113 MEQ/L (98-107); CHOLESTEROL LEVEL 109 MG/DL (<200); CREATININE FOR GFR 1.29 MG/DL (0.55-1.02); GLOMERULAR FILTRATION RATE 46.8 (>58); GLUCOSE, FASTING 162 MG/DL (70-105); POTASSIUM SERUM 4.1 MEQ/L (3.5-5.1); SODIUM LEVEL 142 MEQ/L (136-145); TOTAL PROTEIN 5.2 GM/DL (6.4-8.2); TRIGLYCERIDES LEVEL 107 MG/DL (<150)
[2016-10-10] MEDS: HumaLOG INSULIN (NovoLOG) PER UNIT SC SCH ×4 (07:30→20:44)
[2016-10-10] MEDS: **hydrALAZINE HCL** 25 MG TAB PO SCH ×4 (09:00→20:33)
[2016-10-10] MEDS: CARVedilol 12.5 MG TAB PO SCH ×2 (09:00→20:34)
[2016-10-10] MEDS ORDERED: HumaLOG INSULIN (NovoLOG) PER UNIT SC SCH (09:00)
[2016-10-10] MEDS: ENOXAPARIN 30 MG/0.3 ML SYR (J1650) SC SCH (09:56)
[2016-10-10] MEDS: buPROPion **XL** TABLET 150MG (WELLBUTRIN XL) PO SCH (09:56)
[2016-10-10] MEDS: HYDROmorphone 2 MG TAB PO SCH ×3 (09:57→20:43)
[2016-10-10] MEDS: SENOKOT S TAB PO SCH ×2 (09:57→20:43)
[2016-10-10] MEDS: CETIRIZINE (ZyrTEC) 10 MG TAB PO SCH (09:58)
[2016-10-10] MEDS: MONTELUKAST 10 MG TAB PO SCH (09:58)
[2016-10-10] MEDS: DICYCLOMINE 10 MG CAP PO SCH ×4 (09:58→20:43)
[2016-10-10] MEDS: GABAPENTIN 400 MG CAP PO SCH ×3 (09:58→20:43)
[2016-10-10] MEDS: MAGNESIUM OXIDE 400 MG TAB (MAG-OX) PO SCH (09:58)
[2016-10-10] MEDS: ASPIRIN 81 MG ENTERIC TAB PO SCH (09:59)
[2016-10-10] MEDS: OMEPRAZOLE 20 MG CAP PO SCH (09:59)
[2016-10-10] MEDS: ONDANSETRON 4MG/2ML VIAL (J2405) IV PRN ×2 (10:06→17:08)
--- NOTE | 2016-10-10 10:41 | REP ---
ULTRASOUND ABDOMEN WITH DUPLEX DOPPLER EVALUATION OF PORTAL VASCULATURE: Real-time sonographic evaluation of the abdomen performed. The patient has had a prior cholecystectomy. There is no intrahepatic or extrahepatic biliary dilatation, the common bile duct measuring 5 mm in diameter. Survey images of the liver demonstrate heterogeneous echotexture with no gross mass. There is mild hepatomegaly with the length of 18.3 cm. The pancreas is not optimally seen due to body habitus and overlying bowel gas, but no gross abnormality is seen. The spleen is enlarged with a length of 18.5 cm. No intrinsic abnormality is seen. The kidneys are normal in size and echotexture, right kidney measuring 13.4 x 7.7 x 5.3 cm and the left kidney 10.9 x 5.5 x 5.6 cm. There is no renal mass, hydronephrosis or nephrolithiasis. The visualized abdominal aorta is normal in caliber, proximal aspect measuring 2.3 cm in AP dimension and mid aspect 2.0 cm. The distal abdominal aorta could not be seen due to bowel gas. No gross ascites is seen. Real-time ultrasound evaluation and duplex Doppler interrogation of the portal vasculature is performed. The portal vein demonstrates a velocity of 7.4 cm/s with normal direction of flow. There is no evidence of thrombosis of the visualized portal veins, but again the study is limited due to body habitus and bowel gas. There is normal direction of flow in the splenic vein. The peak systolic velocity of the hepatic artery is 77.7 cm/s, resistive index 0.71. Diameter of the main portal vein is 7 mm. IMPRESSION: Limited by bowel gas and body habitus. The patient is status post cholecystectomy. Fibrofatty infiltration of the liver with mild hepatomegaly. Moderate splenomegaly. Normal direction of flow in the portal veins with no gross thrombosis of the visualized portions. However, the exam is extremely limited as discussed above. Signed by Pedro Pablo Lu MD 10/10/2016 05:36 P
--- NOTE | 2016-10-10 10:41 | IPNPDOC ---
Subjective Date Seen The patient was seen on 10/10/16. Subjective Chief Complaint/HPI The patient is a 50-year-old female admitted with a reason for visit of Acute Kidney Injury. General: Denies: Chills, Night Sweats Eyes: Denies: Conjunctivae inflammation, Eyelid inflammation, Pain, Redness, Vision change ENT: Denies: Dysphagia, Ear Pain, Head Aches Cardiovascular: Denies: Chest Pain, Palpitations Gastrointestinal: Reports: Abdominal Pain, Denies: Nausea, Vomiting Neurological: Denies: Numbness, Weakness Psych: Reports: Mood Normal, Denies: Anxiety, Depression Objective Physical Examination General Exam: Positive: Mild Distress Eye Exam: Positive: Conjunctiva & lids normal, EOMI, Negative: Ptosis, Sclera icteric ENT Exam: Positive: Atraumatic, Mucous membr. moist/pink, Nares Patent, Tongue Midline, Negative: Pharyngeal Edema Neck Exam: Positive: Supple Chest Exam: Positive: Clear to auscultation, Normal air movement, Negative: Rales, Rhonchi, Wheezing Heart Exam: Positive: Normal S1, Normal S2, Rate Normal, Negative: Bradycardic, Tachycardic Abdomen Exam: Positive: Normal bowel sounds, Soft, Negative: Hepatospenomegaly Extremity Exam: Negative: Clubbing, Cyanosis, Edema Skin Exam: Positive: Nl turgor and temperature Assessment /Plan Problems (1) Acute kidney injury Status: Acute Response to Treatment: Stable Problem Text: most likely secondary to ineffective circulating volume renal u/s showed no acute obstruction, kidney stones or hydronephrosis IV lasix for diuresis , -1075 mL so far creatine 1.29 today will avoid nephrotoxin medication renal dose medicines strict I&O's urine culture pending daily weights (2) Edema Status: Chronic Response to Treatment: Stable Problem Text: +2 b/l LE edema secondary to most likely, chronic liver disease albumin 2.4 IV lasix therapy , -1075 mL so far liver u/s pending ct ab/pelvis showed hepatosplenomegaly, no obstructive or inflammatory bowel changes, no evidence of hydronephrosis or nephrolithiasis, small stable umbilical hernia with only omental fat, stable moderate spondylosis of spine. (3) HTN (hypertension) Status: Acute Response to Treatment: Stable Problem Text: continued home medications 160/76 currently Coreg and hydralazine medical therapy (4) SOB (shortness of breath) Status: Acute Response to Treatment: Stable Problem Text: pt states it is improved since her admission one day prior nocturnal pulse ox.ordered 98% on room air (5) Colon spasm Status: Chronic Response to Treatment: Stable Problem Text: bentyl therapy (6) DVT prophylaxis Status: Acute Response to Treatment: Stable Problem Text: lovenox therapy Plan/VTE VTE Prophylaxis Ordered?: Yes Plan/Urinary Catheter Reason for insertion/continuin: Critical Pt monitoring VS, I&O, 24H, Fishbone Vital Signs/I&O Vital Signs Date Time Temp Pulse Resp B/P Pulse Ox O2 Delivery O2 Flow Rate FiO2 10/10/16 09:57 98.0 18 135/62 98 Room Air 10/10/16 09:00 73 I&O- Last 24 Hours up to 6 AM 10/10/16 06:00 Intake Total 480 ml Output Total 1325 ml Balance -845 ml Laboratory Data 24H LABS Laboratory Tests 2 10/09/16 15:24: Differential Pathologist's Review COMPREHENSIVE REVIEW, Differential Slide Review Report, Peripheral Blood Smear Path Consult PERIPHERAL SMEAR 10/09/16 15:34: B-Type Natriuretic Peptide 219H 10/09/16 15:35: Absolute Reticulocyte Count 70, Aspartate Amino Transf (AST/SGOT) 17, Alanine Aminotransferase (ALT/SGPT) 15, Alkaline Phosphatase 77, Total Bilirubin 0.3, Direct Bilirubin 0.1, Albumin 2.7L, Albumin/Globulin Ratio 0.84L, Anion Gap 7L, White Blood Count 3.4L, Red Blood Count 3.25L, Hemoglobin 11.0L, Hematocrit 31.4L, Mean Corpuscular Volume 96.8H, Mean Corpuscular Hemoglobin 33.7H, Mean Corpuscular Hemoglobin Concent 34.8, Red Cell Distribution Width 13.3, Platelet Count 110L, Neutrophils (%) (Auto) 54.9, Lymphocytes (%) (Auto) 34.8, Monocytes (%) (Auto) 5.0, Eosinophils (%) (Auto) 3.3H, Basophils (%) (Auto) 0.7, Neutrophils # (Auto) 1.9, Lymphocytes # (Auto) 1.2L, Monocytes # (Auto) 0.2, Eosinophils # (Auto) 0.1, Basophils # (Auto) 0.0, Calcium Level 8.1L, Creatine Kinase MB 2.0, Creatine Kinase MB Relative Index 2.50, Glomerular Filtration Rate 41.2L, Iron Level 75, Large Unclassified Cells # 0.1, Large Unclassified Cells % 1.3, Magnesium Level 2.0, Percent Reticulocyte Count 2.10H, Phosphorus Level 4.4, Reticulocyte Hgb Content (CHr) 35.9, Thyroid Stimulating Hormone (TSH ) 3.540, Total Creatine Kinase 80, Total Iron Binding Capacity 268, Total Protein 5.9L, Transferrin % Saturation 28.0, Troponin I < 0.02 10/09/16 18:11: Urine Random Creatinine 49.3, Urine Random Osmolality 292L, Urine Random Sodium 55 10/09/16 21:35: Bedside Glucose (Misc Panel) 156H 10/10/16 00:28: Anion Gap 5L, Blood Urea Nitrogen 44H, Creatinine 1.37H, Sodium Level 141, Potassium Level 4.4, Chloride Level 112H, Carbon Dioxide Level 24, Calcium Level 8.4L, Total Creatine Kinase 66, Creatine Kinase MB 1.2, Creatine Kinase MB Relative Index 1.81, Glomerular Filtration Rate 43.6L, Troponin I < 0.02 10/10/16 05:32: Urine Amorphous Sediment , Urine Appearance CLEAR, Urine Color YELLOW, Urine pH 5.0, Urine Specific [place] 1.010, Urine Protein NEGATIVE, Urine Glucose (UA) NEGATIVE, Urine Ketones NEGATIVE, Urine Urobilinogen 0.2, Urine Bilirubin NEGATIVE, Urine Leukocyte Esterase NEGATIVE, Urine Bacteria (Auto) NEGATIVE, Urine Blood NEGATIVE, Urine Calcium Carbonate Cryst(Auto) , Urine Calcium Oxalate Cryst (Auto) , Urine Calcium Phosphate Fiona (Auto) , Urine Cellular Casts , Urine Cystine Crystals , Urine Granular Casts (Auto) , Urine Hyaline Casts (Auto) 18, Urine Leucine Crystals , Urine Mucus (Auto) SMALL, Urine Nitrite NEGATIVE, Urine Oval Fat Bodies (Auto) , Urine RBC (Auto) 3, Urine Renal Epithelial Cells , Urine Sperm (Auto) , Urine Squamous Epithelial Cells 0 , Urine Transitional Epithelial Cells , Urine Trichomonas (Auto) , Urine Triple Phosphate Cryst (Auto) , Urine Tyrosine Crystals , Urine Uric Acid Crystals ( Auto) , Urine WBC (Auto) 1, Urine Waxy Casts (Auto) , Urine Yeast-Like Cells ( Auto) 10/10/16 06:23: Anion Gap 8, Blood Urea Nitrogen 42H, Creatinine 1.29H, Sodium Level 142, Potassium Level 4.1, Chloride Level 113H, Carbon Dioxide Level 21, Calcium Level 8.0L, Total Creatine Kinase 55, Creatine Kinase MB 1.3, Creatine Kinase MB Relative Index 2.36, Glomerular Filtration Rate 46.8L, Troponin I < 0.02, Aspartate Amino Transf (AST/SGOT) 13L, Alanine Aminotransferase (ALT/SGPT) 13, Alkaline Phosphatase 66, Total Bilirubin 0.4, Triglycerides Level 107, Cholesterol Level 109, HDL Cholesterol 47, LDL Cholesterol 40.6, Total Protein 5.2L, Albumin 2.4L, Albumin/Globulin Ratio 0.86L, White Blood Count 2.5L, Red Blood Count 3.13L, Hemoglobin 10.5L, Hematocrit 30.6L, Mean Corpuscular Volume 97.7H, Mean Corpuscular Hemoglobin 33.5H, Mean Corpuscular Hemoglobin Concent 34.3, Red Cell Distribution Width 13.2, Platelet Count 103L, Neutrophils (%) ( Auto) 49.8, Lymphocytes (%) (Auto) 39.2, Monocytes (%) (Auto) 5.4H, Eosinophils (%) (Auto) 3.3H, Basophils (%) (Auto) 0.8, Neutrophils # (Auto) 1.3L, Lymphocytes # (Auto) 1.0L, Monocytes # (Auto) 0.1, Eosinophils # (Auto) 0.1, Basophils # (Auto) 0.0, Cholesterol/HDL Ratio 2.319, Estimated Mean Plasma Glucose 240H, Hemoglobin A1c 10.0H, Large Unclassified Cells # 0.0, Large Unclassified Cells % 1.5, Non-HDL Cholesterol (LDL + VLDL) 62 CBC/BMP Laboratory Tests 10/09/16 15:35 Red Blood Count 3.25 L, Mean Corpuscular Volume 96.8 H, Mean Corpuscular Hemoglobin 33.7 H, Mean Corpuscular Hemoglobin Concent 34.8, Red Cell Distribution Width 13.3, Neutrophils (%) (Auto) 54.9, Lymphocytes (%) (Auto) 34.8, Monocytes (%) (Auto) 5.0, Eosinophils (%) (Auto) 3.3 H, Basophils (%) ( Auto) 0.7, Neutrophils # (Auto) 1.9, Lymphocytes # (Auto) 1.2 L, Monocytes # ( Auto) 0.2, Eosinophils # (Auto) 0.1, Basophils # (Auto) 0.0 10/10/16 00:28 Calcium Level 8.4 L, Total Creatine Kinase 66 10/10/16 06:23 Red Blood Count 3.13 L, Mean Corpuscular Volume 97.7 H, Mean Corpuscular Hemoglobin 33.5 H, Mean Corpuscular Hemoglobin Concent 34.3, Red Cell Distribution Width 13.2, Neutrophils (%) (Auto) 49.8, Lymphocytes (%) (Auto) 39.2, Monocytes (%) (Auto) 5.4 H, Eosinophils (%) (Auto) 3.3 H, Basophils (%) ( Auto) 0.8, Neutrophils # (Auto) 1.3 L, Lymphocytes # (Auto) 1.0 L, Monocytes # ( Auto) 0.1, Eosinophils # (Auto) 0.1, Basophils # (Auto) 0.0, Calcium Level 8.0 L , Total Creatine Kinase 55, Aspartate Amino Transf (AST/SGOT) 13 L, Alanine Aminotransferase (ALT/SGPT) 13, Alkaline Phosphatase 66, Total Bilirubin 0.4, Triglycerides Level 107, Cholesterol Level 109, HDL Cholesterol 47, LDL Cholesterol 40.6, Total Protein 5.2 L, Albumin 2.4 L Microbiology Microbiology 10/10/16 Urine Culture, Received Pending GME ATTESTATION GME ATTESTATION My preceptor for this patient encounter was physically present in the building during the encounter and was fully available. As needed, all aspects of the patient interview, examination, medical decision making process, and medical care plan development were reviewed and approved by the preceptor. Preceptor is aware and concurs with the plan as stated in the body of this note and will attest to such by his/her cosignature. MILAN MONET DO Oct 10, 2016 10:41
[2016-10-10 14:00] VITALS: BP 123/56
[2016-10-10] MEDS: NYSTATIN 100,000 UNITS/GM TOPICAL PWD 15 GM TOP SCH (17:02)
--- NOTE | 2016-10-10 20:06 | ECHO ---
DATE OF PROCEDURE: 10/10/2016 REFERRING PHYSICIAN: Mague Blackman MD INDICATION: Edema. HEIGHT: 183 cm WEIGHT: 163 kg DIMENSIONS: IVS: 1.2 LV: 4.9 LVPW: 1.2 LA: 4.4 Aorta: 3.0 IVC: 3.5 E velocity: 89 cm/s E prime septal: 7.1 cm/s E prime lateral: 8.6 cm/s FINDINGS Study is of rather limited technical quality corresponding to patient's body habitus. Left ventricle is normal size with mild left ventricular hypertrophy (LVH) and probably normal left ventricle (LV) systolic function based on limited visualization. I estimate ejection fraction (EF) around 70%. Right ventricle was poorly seen, but does not appear grossly dilated. Left atrium is at least moderately enlarged. Right atrium was poorly visualized. Aortic valve has three cusps and it is mildly sclerotic while mobility seems to be reasonably preserved. There are also mild degenerative abnormalities of mitral valve with mitral annular calcifications. Mobility of leaflet is preserved. Tricuspid valve appears normal. Pulmonic valve was not well visualized. No pericardial effusion is noted. Inferior vena cava is markedly dilated and there is no appreciable collapse with respiration, indicative of very high central venous pressure. Aortic root and aortic arch appear normal. Abdominal aorta was not well seen. Doppler interrogation of aortic valve reveals no significant stenosis or insufficiency. There is trace mitral insufficiency and mild tricuspid insufficiency. Calculated pulmonary artery pressure was at least in high 40s or low 50s that would correspond to moderate pulmonary hypertension. Pulmonic valves is functionally competent. Mitral inflow pattern and tissue Doppler imaging of mitral annulus reveal grade 2 diastolic dysfunction. CONCLUSIONS: 1. Study is of rather limited technical quality corresponding to patient's body habitus. 2. Normal LV size with mild left ventricular hypertrophy and overall likely preserved LV systolic function. Grade 2 diastolic dysfunction. 3. No hemodynamically significant valvular disease. 4. Likely very high central venous pressure. 5. At least moderate pulmonary hypertension. COMMENT: Subacute bacterial endocarditis (SBE) prophylaxis is not recommended. INDICATION
[2016-10-10 20:20] VITALS: BP 133/62
[2016-10-10] MEDS: rOPINIRole 1MG TAB PO SCH (20:43)
--- NOTE | 2016-10-10 20:43 | ECGEPIP ---
Stationary ECG Study [facility] Test Date: 2016-10-10 Pat Name: WILLEM BALDWIN Department: Room: [place] [address] Gender: F Front Desk Lead: KENDY : 1965 Requested By: ARINA Pathak Order Number: [id number] Reading MD: Vic Williamson Measurements Intervals [place] Rate: 70 P: 51 TX: 167 QRS: 12 QRSD: 101 T: 25 QT: 399 QTc: 431 Interpretive Statements SINUS RHYTHM Normal Electronically Signed On 10-10-2016 20:43:57 EDT by Vic Williamson
[2016-10-10] MEDS: LEVEMIR (INSULIN DETEMIR) 1 UNITS/0.01ML SC SCH (22:12)
[2016-10-11 05:25] VITALS: BP 133/62
[2016-10-11] MEDS: FUROSEMIDE 20 MG/2 ML VIAL (J1940) IV SCH ×5 (05:39→23:59)
[2016-10-11 06:37] LABS: BASO % 0.4 % (0.0-1.0); EOS # 0.1 K/mm3 (0.0-0.50); EOS % 2.5 % (0.0-3.0); LARGE UNSTAINED CELL # 0.1 K/mm3 (0.0-0.4); LARGE UNSTAINED CELL % 2.7 % (0.0-4.0); LYMPH # 1.2 K/mm3 (1.5-4.5); LYMPH % 40.9 % (24.0-44.0); MEAN CORPUSCULAR HEMOGLOBIN 33.1 pg (27.0-33.0); MEAN CORPUSCULAR HGB CONC 33.4 g/dl (32.0-36.5); MONO # 0.2 K/mm3 (0.0-0.8); MONO % 6.1 % (0.0-5.0); NEUTROPHILS # 1.3 K/mm3 (1.8-7.7); NEUTROPHILS % 47.3 % (36.0-66.0); PLATELET COUNT, AUTOMATED 113 k/mm3 (150-450); RED CELL DISTRIBUTION WIDTH 13.5 % (11.5-14.5); WHITE BLOOD COUNT 2.8 K/mm3 (4.0-10.0)
[2016-10-11 07:47] LABS: ANION GAP 7 MEQ/L (8-16); BLOOD UREA NITROGEN 37 MG/DL (7-18); CALCIUM LEVEL 8.2 MG/DL (8.5-10.1); CARBON DIOXIDE LEVEL 25 MEQ/L (21-32); CHLORIDE LEVEL 115 MEQ/L (98-107); CREATININE FOR GFR 1.03 MG/DL (0.55-1.02); GLOMERULAR FILTRATION RATE > 60.0 (>58); GLUCOSE, FASTING 151 MG/DL (70-105); POTASSIUM SERUM 4.4 MEQ/L (3.5-5.1); SODIUM LEVEL 147 MEQ/L (136-145)
[2016-10-11] MEDS: DICYCLOMINE 10 MG CAP PO SCH ×4 (08:55→22:00)
[2016-10-11] MEDS: MONTELUKAST 10 MG TAB PO SCH (08:55)
[2016-10-11] MEDS: GABAPENTIN 400 MG CAP PO SCH ×3 (08:55→22:01)
[2016-10-11] MEDS: OMEPRAZOLE 20 MG CAP PO SCH (08:55)
[2016-10-11] MEDS: SENOKOT S TAB PO SCH ×2 (08:55→22:00)
[2016-10-11] MEDS: HumaLOG INSULIN (NovoLOG) PER UNIT SC SCH ×4 (08:55→22:04)
[2016-10-11] MEDS: CETIRIZINE (ZyrTEC) 10 MG TAB PO SCH (08:55)
[2016-10-11] MEDS: CARVedilol 12.5 MG TAB PO SCH ×2 (08:57→22:03)
[2016-10-11] MEDS: **hydrALAZINE HCL** 25 MG TAB PO SCH ×4 (08:58→22:01)
[2016-10-11] MEDS: MAGNESIUM OXIDE 400 MG TAB (MAG-OX) PO SCH (08:58)
[2016-10-11] MEDS: ASPIRIN 81 MG ENTERIC TAB PO SCH (08:58)
[2016-10-11] MEDS: ENOXAPARIN 30 MG/0.3 ML SYR (J1650) SC SCH (08:59)
[2016-10-11] MEDS: NYSTATIN 100,000 UNITS/GM TOPICAL PWD 15 GM TOP SCH ×2 (08:59→22:04)
[2016-10-11] MEDS ORDERED: INFLUENZA QUADRIVALENT PF VACCINE 0.5ML SYRINGE/VIAL (90686) IM ONE (09:00)
[2016-10-11] MEDS: buPROPion **XL** TABLET 150MG (WELLBUTRIN XL) PO SCH (09:06)
[2016-10-11] MEDS: HYDROmorphone 2 MG TAB PO SCH ×3 (09:07→22:02)
--- NOTE | 2016-10-11 09:17 | IPNPDOC ---
Subjective Date Seen The patient was seen on 10/11/16. Subjective Chief Complaint/HPI The patient is a 50-year-old female admitted with a reason for visit of Acute Kidney Injury. General: Denies: Chills, Night Sweats Constitutional: Denies: Chills, Fever Eyes: Denies: Conjunctivae inflammation, Pain, Redness, Vision change ENT: Denies: Ear Pain, Head Aches Skin: Denies: Lesions, Rash Pulmonary: Reports: Dyspnea (mild SOB especially with ambulation, chronic in nature), Denies: Cough, Pleuritic Chest Pain Cardiovascular: Reports: Edema (+2 b/l LE), Denies: Chest Pain, Orthopnea, Palpitations Gastrointestinal: Denies: Abdominal Pain, Constipation, Diarrhea, Nausea, Vomiting Neurological: Denies: Weakness Psych: Reports: Mood Normal, Denies: Anxiety, Depression Objective Physical Examination General Exam: Positive: Mild Distress Eye Exam: Positive: Conjunctiva & lids normal, EOMI, Negative: Ptosis, Sclera icteric ENT Exam: Positive: Atraumatic, Mucous membr. moist/pink, Nares Patent, Tongue Midline, Negative: Pharyngeal Edema Neck Exam: Positive: Supple Chest Exam: Positive: Clear to auscultation, Normal air movement, Negative: Rales, Rhonchi, Wheezing Heart Exam: Positive: Normal S1, Normal S2, Rate Normal, Negative: Bradycardic, Tachycardic Abdomen Exam: Positive: BS Hypoactive (minimaly decreased bsx4), Normal bowel sounds, Soft, Negative: Hepatospenomegaly Extremity Exam: Negative: Clubbing, Cyanosis, Edema Skin Exam: Positive: Nl turgor and temperature Psych Exam: Positive: Oriented x 3 Assessment /Plan Problems (1) Acute kidney injury Status: Acute Response to Treatment: Stable Problem Text: most likely secondary to ineffective circulating volume renal u/s showed no acute obstruction, kidney stones or hydronephrosis IV lasix for diuresis , -4150 mL so far-pt is diuresing well creatine 1.03 today will avoid nephrotoxin medication renal dose medicines strict I&O's urine culture negative daily weights (2) Edema Status: Chronic Response to Treatment: Stable Problem Text: +2 b/l LE edema still secondary to most likely, chronic liver disease albumin 2.4 IV lasix therapy , -4150 mL so far liver u/s negative for portal vein clot, showed mild hepatomegaly and fatty liver ct ab/pelvis showed hepatosplenomegaly, no obstructive or inflammatory bowel changes, no evidence of hydronephrosis or nephrolithiasis, small stable umbilical hernia with only omental fat, stable moderate spondylosis of spine. (3) HTN (hypertension) Status: Acute Response to Treatment: Stable Problem Text: continued home medications 133/62 currently Coreg and hydralazine medical therapy. will continue (4) SOB (shortness of breath) Status: Acute Response to Treatment: Stable Problem Text: pt states it is improved since her admission two days prior, mostly bothers her with ambulation nocturnal pulse ox.ordered 98% on room air (5) Colon spasm Status: Chronic Response to Treatment: Stable Problem Text: bentyl therapy (6) Essential tremor Status: Chronic Response to Treatment: Stable Problem Text: pt complained of ongoing tremor in her hands b/l, states she has had it before admission but it seems to be bothering her more now most likely essential tremor, made worse with intentional movements as per pt will begin propranolol 40 BID w/ hold parameters HR <70BPM continue to monitor (7) DVT prophylaxis Status: Acute Response to Treatment: Stable Problem Text: lovenox therapy Plan/VTE VTE Prophylaxis Ordered?: Yes Plan/Urinary Catheter Reason for insertion/continuin: Critical Pt monitoring VS, I&O, 24H, [facility] Vital Signs/I&O Vital Signs Date Time Temp Pulse Resp B/P Pulse Ox O2 Delivery O2 Flow Rate FiO2 10/11/16 09:07 18 Room Air 10/11/16 08:57 74 136/63 10/11/16 05:25 98.4 99 I&O- Last 24 Hours up to 6 AM 10/11/16 05:59 Intake Total 600 ml Output Total 3975 ml Balance -3375 ml Laboratory Data 24H LABS Laboratory Tests 2 10/10/16 12:00: Bedside Glucose (Misc Panel) 136H 10/10/16 16:48: Bedside Glucose (Misc Panel) 269H 10/10/16 20:28: Bedside Glucose (Misc Panel) 254H 10/11/16 05:29: Bedside Glucose (Misc Panel) 152H 10/11/16 05:49: Anion Gap 7L, White Blood Count 2.8L, Red Blood Count 3.28L, Hemoglobin 10.8L, Hematocrit 32.5L, Mean Corpuscular Volume 99.0H, Mean Corpuscular Hemoglobin 33.1H, Mean Corpuscular Hemoglobin Concent 33.4, Red Cell Distribution Width 13.5, Platelet Count 113L, Neutrophils (%) (Auto) 47.3, Lymphocytes (%) (Auto) 40.9, Monocytes (%) (Auto) 6.1H, Eosinophils (%) (Auto) 2.5, Basophils (%) (Auto ) 0.4, Neutrophils # (Auto) 1.3L, Lymphocytes # (Auto) 1.2L, Monocytes # (Auto) 0.2, Eosinophils # (Auto) 0.1, Basophils # (Auto) 0.0, Blood Urea Nitrogen 37H, Creatinine 1.03H, Sodium Level 147H, Potassium Level 4.4, Chloride Level 115H, Carbon Dioxide Level 25, Calcium Level 8.2L, Glomerular Filtration Rate > 60.0, Large Unclassified Cells # 0.1, Large Unclassified Cells % 2.7 CBC/BMP Laboratory Tests 10/11/16 05:49 Calcium Level 8.2 L, Red Blood Count 3.28 L, Mean Corpuscular Volume 99.0 H, Mean Corpuscular Hemoglobin 33.1 H, Mean Corpuscular Hemoglobin Concent 33.4, Red Cell Distribution Width 13.5, Neutrophils (%) (Auto) 47.3, Lymphocytes (%) ( Auto) 40.9, Monocytes (%) (Auto) 6.1 H, Eosinophils (%) (Auto) 2.5, Basophils (% ) (Auto) 0.4, Neutrophils # (Auto) 1.3 L, Lymphocytes # (Auto) 1.2 L, Monocytes # (Auto) 0.2, Eosinophils # (Auto) 0.1, Basophils # (Auto) 0.0 Microbiology Microbiology 10/10/16 Urine Culture - Final, Complete GME ATTESTATION GME ATTESTATION My preceptor for this patient encounter was physically present in the building during the encounter and was fully available. As needed, all aspects of the patient interview, examination, medical decision making process, and medical care plan development were reviewed and approved by the preceptor. Preceptor is aware and concurs with the plan as stated in the body of this note and will attest to such by his/her cosignature. MILAN MONET DO, Apr 8, 2017 09:17
[2016-10-11] MEDS: PROPRANOLOL 20 MG TAB PO SCH ×2 (13:53→22:00)
[2016-10-11 14:00] VITALS: BP 151/73
[2016-10-11 21:00] VITALS: BP 150/69
[2016-10-11] MEDS: rOPINIRole 1MG TAB PO SCH (22:00)
[2016-10-11] MEDS: clonazePAM 1 MG TAB PO PRN (22:01)
[2016-10-11] MEDS: ONDANSETRON 4 MG ORAL DISINTEGRATING TAB (S0181) PO PRN (22:02)
[2016-10-11] MEDS: LEVEMIR (INSULIN DETEMIR) 1 UNITS/0.01ML SC SCH (22:03)
[2016-10-12 05:00] VITALS: BP 158/68
[2016-10-12] MEDS: FUROSEMIDE 20 MG/2 ML VIAL (J1940) IV SCH ×4 (05:52→23:59)
[2016-10-12 05:56] LABS: BASO % 0.9 % (0.0-1.0); EOS # 0.1 K/mm3 (0.0-0.50); EOS % 2.6 % (0.0-3.0); LARGE UNSTAINED CELL # 0.1 K/mm3 (0.0-0.4); LARGE UNSTAINED CELL % 2.6 % (0.0-4.0); LYMPH % 38.1 % (24.0-44.0); MEAN CORPUSCULAR HEMOGLOBIN 33.1 pg (27.0-33.0); MEAN CORPUSCULAR HGB CONC 33.3 g/dl (32.0-36.5); MEAN CORPUSCULAR VOLUME 99.3 fl (80.0-96.0); MONO # 0.2 K/mm3 (0.0-0.8); MONO % 7.1 % (0.0-5.0); NEUTROPHILS # 1.2 K/mm3 (1.8-7.7); NEUTROPHILS % 48.7 % (36.0-66.0); PLATELET COUNT, AUTOMATED 111 k/mm3 (150-450); RED CELL DISTRIBUTION WIDTH 13.4 % (11.5-14.5); WHITE BLOOD COUNT 2.5 K/mm3 (4.0-10.0)
[2016-10-12 06:10] LABS: ANION GAP 6 MEQ/L (8-16); BLOOD UREA NITROGEN 30 MG/DL (7-18); CALCIUM LEVEL 8.7 MG/DL (8.5-10.1); CARBON DIOXIDE LEVEL 29 MEQ/L (21-32); CHLORIDE LEVEL 112 MEQ/L (98-107); GLOMERULAR FILTRATION RATE > 60.0 (>58); GLUCOSE, FASTING 158 MG/DL (70-105); POTASSIUM SERUM 4.5 MEQ/L (3.5-5.1); SODIUM LEVEL 147 MEQ/L (136-145)
[2016-10-12] MEDS: DICYCLOMINE 10 MG CAP PO SCH ×4 (08:01→20:46)
[2016-10-12] MEDS: MONTELUKAST 10 MG TAB PO SCH (08:02)
[2016-10-12] MEDS: **hydrALAZINE HCL** 25 MG TAB PO SCH ×4 (08:02→20:47)
[2016-10-12] MEDS: CETIRIZINE (ZyrTEC) 10 MG TAB PO SCH (08:02)
[2016-10-12] MEDS: OMEPRAZOLE 20 MG CAP PO SCH (08:03)
[2016-10-12] MEDS: SENOKOT S TAB PO SCH ×2 (08:03→20:46)
[2016-10-12] MEDS: ASPIRIN 81 MG ENTERIC TAB PO SCH (08:03)
[2016-10-12] MEDS: CARVedilol 12.5 MG TAB PO SCH ×2 (08:03→20:47)
[2016-10-12] MEDS: MAGNESIUM OXIDE 400 MG TAB (MAG-OX) PO SCH (08:03)
[2016-10-12] MEDS: buPROPion **XL** TABLET 150MG (WELLBUTRIN XL) PO SCH (08:03)
[2016-10-12] MEDS: HYDROmorphone 2 MG TAB PO SCH ×3 (08:04→20:48)
[2016-10-12] MEDS: PROPRANOLOL 20 MG TAB PO SCH (08:04)
[2016-10-12] MEDS: GABAPENTIN 400 MG CAP PO SCH ×3 (08:04→20:46)
[2016-10-12] MEDS: ENOXAPARIN 30 MG/0.3 ML SYR (J1650) SC SCH (08:05)
[2016-10-12] MEDS: HumaLOG INSULIN (NovoLOG) PER UNIT SC SCH ×4 (08:05→21:23)
[2016-10-12] MEDS: ACETAMINOPHEN TAB 650MG DOSE (2X325MG) PO PRN ×2 (08:06→17:34)
[2016-10-12] MEDS: NYSTATIN 100,000 UNITS/GM TOPICAL PWD 15 GM TOP SCH ×2 (08:06→20:46)
--- NOTE | 2016-10-12 10:36 | IPNPDOC ---
Subjective Date Seen The patient was seen on 10/12/16. Subjective Chief Complaint/HPI The patient is a 50-year-old female admitted with a reason for visit of Acute Kidney Injury. General: Denies: Chills, Night Sweats Constitutional: Denies: Chills, Fever Eyes: Denies: Pain, Vision change ENT: Denies: Ear Pain, Head Aches Skin: Denies: Lesions, Rash Pulmonary: Denies: Cough, Dyspnea Cardiovascular: Denies: Chest Pain, Palpitations Gastrointestinal: Denies: Nausea, Vomiting Genitourinary: Denies: Dysuria, Frequency Hematologic: Denies: Bleeding Excessively, Bruising Objective Physical Examination General Exam: Positive: Alert, Cooperative, No Acute Distress Eye Exam: Positive: Conjunctiva & lids normal, EOMI, Negative: Ptosis, Sclera icteric ENT Exam: Positive: Atraumatic, Mucous membr. moist/pink, Nares Patent, Tongue Midline, Negative: Pharyngeal Edema Neck Exam: Positive: Supple Chest Exam: Positive: Clear to auscultation, Normal air movement, Negative: Rales, Rhonchi, Wheezing Heart Exam: Positive: Normal S1, Normal S2, Rate Normal, Negative: Bradycardic, Tachycardic Abdomen Exam: Positive: Normal bowel sounds, Soft, Negative: Hepatospenomegaly, Tenderness Extremity Exam: Positive: Edema (1+) Psych Exam: Positive: Oriented x 3 Assessment /Plan Plan/VTE VTE Prophylaxis Ordered?: Yes Plan/Urinary Catheter Reason for insertion/continuin: Critical Pt monitoring Plan Lower Extremity Edema Likely 2/2 Underlying Chronic Liver Disease, Diastolic CHF , Pulm HTN, Hypoalbuminemia Continue on IV Lasix therapy Net Negative of -6L + thus far, with marked improved noted on clinical exam of lower extremity edema 2D ECHO notable for Grade 2 DD, Moderate Pulm HTN, Elevated CVP Will likely transition back to PO Lasix tomorrow Acute kidney injury likely 2/2 Fluid Overload State Serum Creatinine 1.44 on admission Serum Creatinine back to baseline of 0.8 this am after diuresis noted above We will continue to monitor the patient's Non-Alcoholic Steatohepatitis, Hypoalbuminemia LFTs stable here ?Hx of Liver Cirrhosis according to records Liver U/S negative for portal vein clot, showed mild hepatomegaly and fatty liver CT ab/pelvis showed hepatosplenomegaly, no obstructive or inflammatory bowel changes, no evidence of hydronephrosis or nephrolithiasis, small stable Follows with GI in [place] HTN (hypertension), stable Cont Coreg and hydralazine medical therapy. will continue Pancytopenia likely 2/2 Chronic Liver Disease Stable with no indication for transfusion DVT prophylaxis SC lovenox Disposition: Will transition to PO Lasix in the AM, and likely D/C in the AM pending PT clearance. VS, I&O, 24H, Fishbone Vital Signs/I&O Vital Signs Date Time Temp Pulse Resp B/P Pulse Ox O2 Delivery O2 Flow Rate FiO2 10/12/16 09:00 18 High Flow Cannula 4.0 10/12/16 08:04 67 10/12/16 08:02 160/88 10/12/16 05:00 98.0 98 I&O- Last 24 Hours up to 6 AM 10/12/16 06:00 Intake Total 960 ml Output Total 3950 ml Balance -2990 ml Laboratory Data 24H LABS Laboratory Tests 2 10/11/16 11:30: Bedside Glucose (Misc Panel) 174H 10/11/16 17:03: Bedside Glucose (Misc Panel) 185H 10/11/16 21:05: Bedside Glucose (Misc Panel) 255H 10/12/16 05:21: Anion Gap 6L, White Blood Count 2.5L, Red Blood Count 3.41L, Hemoglobin 11.3L, Hematocrit 33.8L, Mean Corpuscular Volume 99.3H, Mean Corpuscular Hemoglobin 33.1H, Mean Corpuscular Hemoglobin Concent 33.3, Red Cell Distribution Width 13.4, Platelet Count 111L, Neutrophils (%) (Auto) 48.7, Lymphocytes (%) (Auto) 38.1, Monocytes (%) (Auto) 7.1H, Eosinophils (%) (Auto) 2.6, Basophils (%) (Auto ) 0.9, Neutrophils # (Auto) 1.2L, Lymphocytes # (Auto) 1.0L, Monocytes # (Auto) 0.2, Eosinophils # (Auto) 0.1, Basophils # (Auto) 0.0, Blood Urea Nitrogen 30H, Creatinine 0.80, Sodium Level 147H, Potassium Level 4.5, Chloride Level 112H, Carbon Dioxide Level 29, Calcium Level 8.7, Glomerular Filtration Rate > 60.0, Large Unclassified Cells # 0.1, Large Unclassified Cells % 2.6 CBC/BMP Laboratory Tests 10/12/16 05:21 Calcium Level 8.7, Red Blood Count 3.41 L, Mean Corpuscular Volume 99.3 H, Mean Corpuscular Hemoglobin 33.1 H, Mean Corpuscular Hemoglobin Concent 33.3, Red Cell Distribution Width 13.4, Neutrophils (%) (Auto) 48.7, Lymphocytes (%) (Auto ) 38.1, Monocytes (%) (Auto) 7.1 H, Eosinophils (%) (Auto) 2.6, Basophils (%) ( Auto) 0.9, Neutrophils # (Auto) 1.2 L, Lymphocytes # (Auto) 1.0 L, Monocytes # ( Auto) 0.2, Eosinophils # (Auto) 0.1, Basophils # (Auto) 0.0 Microbiology Microbiology 10/10/16 Urine Culture - Final, Complete CASEY GAMING MD Oct 12, 2016 10:36 Hematocrit 33.8L, Mean Corpuscular Volume 99.3H, Mean Corpuscular Hemoglobin 33.1H, Mean Corpuscular Hemoglobin Concent 33.3, Red Cell Distribution Width 13.4, Platelet Count 111L, Neutrophils (%) (Auto) 48.7, Lymphocytes (%) (Auto) 38.1, Monocytes (%) (Auto) 7.1H, Eosinophils (%) (Auto) 2.6, Basophils (%) (Auto ) 0.9, Neutrophils # (Auto) 1.2L, Lymphocytes # (Auto) 1.0L, Monocytes # (Auto) 0.2, Eosinophils # (Auto) 0.1, Basophils # (Auto) 0.0, Blood Urea Nitrogen 30H, Creatinine 0.80, Sodium Level 147H, Potassium Level 4.5, Chloride Level 112H, Carbon Dioxide Level 29, Calcium Level 8.7, Glomerular Filtration Rate > 60.0, Large Unclassified Cells # 0.1, Large Unclassified Cells % 2.6 CBC/BMP Laboratory Tests 10/12/16 05:21 Calcium Level 8.7, Red Blood Count 3.41 L, Mean Corpuscular Volume 99.3 H, Mean Corpuscular Hemoglobin 33.1 H, Mean Corpuscular Hemoglobin Concent 33.3, Red Cell Distribution Width 13.4, Neutrophils (%) (Auto) 48.7, Lymphocytes (%) (Auto ) 38.1, Monocytes (%) (Auto) 7.1 H, Eosinophils (%) (Auto) 2.6, Basophils (%) ( Auto) 0.9, Neutrophils # (Auto) 1.2 L, Lymphocytes # (Auto) 1.0 L, Monocytes # ( Auto) 0.2, Eosinophils # (Auto) 0.1, Basophils # (Auto) 0.0 Microbiology Microbiology 10/10/16 Urine Culture - Final, Complete CASEY GAMING MD Oct 12, 2016 10:36
[2016-10-12 14:00] VITALS: BP 143/68
[2016-10-12] MEDS: BISACODYL 5 MG TAB PO PRN (17:39)
[2016-10-12] MEDS: clonazePAM 1 MG TAB PO PRN (20:46)
[2016-10-12] MEDS: rOPINIRole 1MG TAB PO SCH (20:46)
[2016-10-12] MEDS: LEVEMIR (INSULIN DETEMIR) 1 UNITS/0.01ML SC SCH (20:46)
[2016-10-12] MEDS: ONDANSETRON 4 MG ORAL DISINTEGRATING TAB (S0181) PO PRN (20:46)
[2016-10-12 22:00] VITALS: BP 158/72
[2016-10-13 06:00] VITALS: BP 123/65
[2016-10-13] MEDS: FUROSEMIDE 20 MG/2 ML VIAL (J1940) IV SCH (06:14)
[2016-10-13] MEDS: ACETAMINOPHEN TAB 650MG DOSE (2X325MG) PO PRN (06:45)
[2016-10-13 07:12] LABS: BASO % 0.4 % (0.0-1.0); EOS # 0.1 K/mm3 (0.0-0.50); EOS % 4.5 % (0.0-3.0); LARGE UNSTAINED CELL # 0.1 K/mm3 (0.0-0.4); LARGE UNSTAINED CELL % 1.7 % (0.0-4.0); LYMPH # 1.2 K/mm3 (1.5-4.5); MEAN CORPUSCULAR HEMOGLOBIN 32.8 pg (27.0-33.0); MEAN CORPUSCULAR HGB CONC 33.5 g/dl (32.0-36.5); MEAN CORPUSCULAR VOLUME 97.9 fl (80.0-96.0); MONO # 0.2 K/mm3 (0.0-0.8); MONO % 6.7 % (0.0-5.0); NEUTROPHILS # 1.5 K/mm3 (1.8-7.7); NEUTROPHILS % 48.7 % (36.0-66.0); PLATELET COUNT, AUTOMATED 116 k/mm3 (150-450); RED CELL DISTRIBUTION WIDTH 13.3 % (11.5-14.5); WHITE BLOOD COUNT 3.1 K/mm3 (4.0-10.0)
[2016-10-13] MEDS: HumaLOG INSULIN (NovoLOG) PER UNIT SC SCH ×4 (07:30→21:00)
[2016-10-13 07:33] LABS: ANION GAP 8 MEQ/L (8-16); BLOOD UREA NITROGEN 28 MG/DL (7-18); CALCIUM LEVEL 9.4 MG/DL (8.5-10.1); CARBON DIOXIDE LEVEL 27 MEQ/L (21-32); CHLORIDE LEVEL 112 MEQ/L (98-107); CREATININE FOR GFR 0.97 MG/DL (0.55-1.02); GLOMERULAR FILTRATION RATE > 60.0 (>58); GLUCOSE, FASTING 194 MG/DL (70-105); POTASSIUM SERUM 4.6 MEQ/L (3.5-5.1); SODIUM LEVEL 147 MEQ/L (136-145)
[2016-10-13] MEDS: CARVedilol 12.5 MG TAB PO SCH ×2 (08:55→22:04)
[2016-10-13] MEDS: **hydrALAZINE HCL** 25 MG TAB PO SCH ×4 (08:55→22:03)
[2016-10-13] MEDS: NYSTATIN 100,000 UNITS/GM TOPICAL PWD 15 GM TOP SCH ×2 (09:00→22:05)
[2016-10-13] MEDS: ENOXAPARIN 30 MG/0.3 ML SYR (J1650) SC SCH (09:04)
[2016-10-13] MEDS: OMEPRAZOLE 20 MG CAP PO SCH (09:05)
[2016-10-13] MEDS: SENOKOT S TAB PO SCH ×2 (09:05→22:02)
[2016-10-13] MEDS: ASPIRIN 81 MG ENTERIC TAB PO SCH (09:05)
[2016-10-13] MEDS: GABAPENTIN 400 MG CAP PO SCH ×3 (09:05→22:04)
[2016-10-13] MEDS: HYDROmorphone 2 MG TAB PO SCH ×3 (09:05→22:11)
[2016-10-13] MEDS: CETIRIZINE (ZyrTEC) 10 MG TAB PO SCH (09:05)
[2016-10-13] MEDS: MONTELUKAST 10 MG TAB PO SCH (09:05)
[2016-10-13] MEDS: DICYCLOMINE 10 MG CAP PO SCH ×4 (09:06→22:03)
[2016-10-13] MEDS: MAGNESIUM OXIDE 400 MG TAB (MAG-OX) PO SCH (09:06)
[2016-10-13] MEDS: buPROPion **XL** TABLET 150MG (WELLBUTRIN XL) PO SCH (09:08)
[2016-10-13] MEDS: BISACODYL 5 MG TAB PO PRN (11:38)
--- NOTE | 2016-10-13 11:53 | IPNPDOC ---
Subjective Date Seen The patient was seen on 10/13/16. Subjective Chief Complaint/HPI The patient is a 50-year-old female admitted with a reason for visit of Acute Kidney Injury. General: Denies: Chills, Fatigue, Malaise, Night Sweats, Normal Appetite, ROS Unobtainable Constitutional: Denies: Chills, Fatigue, Fever, Malaise, Night Sweats, Weakness , Weight Loss Eyes: Denies: Conjunctivae inflammation, Eyelid inflammation, Pain, Vision change ENT: Denies: Ear Pain, Head Aches Skin: Denies: Breakdown, Bruising, Dry, Itching, Jaundice, Lesions, Rash Pulmonary: Denies: Cough, Dyspnea, Pleuritic Chest Pain Cardiovascular: Reports: Edema (b/l LE +1 pitting, decreased from two days prior), Denies: Chest Pain, Orthopnea, Palpitations, Paroxysmal Noc. Dyspnea Gastrointestinal: Denies: Abdominal Pain, Constipation, Diarrhea, Nausea, Vomiting Neurological: Denies: Numbness, Weakness Psych: Reports: Depression (pt. seems a bit emotional today, is frustrated at her current health status, discussed with her outpt plans to lose weight ), Denies: Mood Normal Objective Physical Examination General Exam: Positive: Alert, Cooperative, No Acute Distress Eye Exam: Positive: Conjunctiva & lids normal, EOMI, Negative: Ptosis, Sclera icteric ENT Exam: Positive: Atraumatic, Mucous membr. moist/pink, Nares Patent, Tongue Midline, Negative: Pharyngeal Edema Neck Exam: Positive: Supple Chest Exam: Positive: Clear to auscultation, Normal air movement, Negative: Rales, Rhonchi, Wheezing Heart Exam: Positive: Normal S1, Normal S2, Rate Normal, Negative: Bradycardic, Tachycardic Abdomen Exam: Positive: Normal bowel sounds, Soft, Negative: Hepatospenomegaly, Tenderness Extremity Exam: Positive: Edema (1+ b/l LE, pitting, improved from two days prior ) Psych Exam: Positive: Oriented x 3 Assessment /Plan Problems (1) Acute kidney injury Status: Acute Response to Treatment: Stable Problem Text: most likely secondary to ineffective circulating volume renal u/s showed no acute obstruction, kidney stones or hydronephrosis IV lasix for diuresis , -2075 mL so far-pt is diuresing well will transition to PO lasix creatine .9 today will avoid nephrotoxin medication renal dose medicines strict I&O's urine culture negative daily weights (2) Edema Status: Chronic Response to Treatment: Stable Problem Text: + 1 b/l LE edema still secondary to most likely, chronic liver disease albumin 2.4 IV lasix therapy , -2075 mL so far, will transition to PO lasix liver u/s negative for portal vein clot, showed mild hepatomegaly and fatty liver ct ab/pelvis showed hepatosplenomegaly, no obstructive or inflammatory bowel changes, no evidence of hydronephrosis or nephrolithiasis, small stable umbilical hernia with only omental fat, stable moderate spondylosis of spine. (3) HTN (hypertension) Status: Acute Response to Treatment: Stable Problem Text: continued home medications 123/64 currently Coreg and hydralazine medical therapy. will continue (4) SOB (shortness of breath) Status: Acute Response to Treatment: Stable Problem Text: pt states it is improved since her admission two days prior, mostly bothers her with ambulation nocturnal pulse ox.ordered 98% on room air (5) Colon spasm Status: Chronic Response to Treatment: Stable Problem Text: bentyl therapy (6) Essential tremor Status: Chronic Response to Treatment: Stable Problem Text: pt complained of ongoing tremor in her hands b/l, states she has had it before admission but it seems to be bothering her more now most likely essential tremor, made worse with intentional movements as per pt, is better but she still experiences it propranolol 40 BID w/ hold parameters HR <70BPM continue to monitor (7) DVT prophylaxis Status: Acute Response to Treatment: Stable Problem Text: lovenox therapy Plan/VTE VTE Prophylaxis Ordered?: Yes Plan/Urinary Catheter Reason for insertion/continuin: Critical Pt monitoring VS, I&O, 24H, Fishbone Vital Signs/I&O Vital Signs Date Time Temp Pulse Resp B/P Pulse Ox O2 Delivery O2 Flow Rate FiO2 10/13/16 09:46 16 Room Air 10/13/16 08:55 123/65 10/13/16 08:55 76 10/13/16 06:00 99.0 94 10/12/16 09:00 4.0 I&O- Last 24 Hours up to 6 AM 10/13/16 06:00 Intake Total 1440 ml Output Total 3025 ml Balance -1585 ml Laboratory Data 24H LABS Laboratory Tests 2 10/12/16 16:27: Bedside Glucose (Misc Panel) 207H 10/12/16 21:10: Bedside Glucose (Misc Panel) 267H 10/13/16 06:42: Anion Gap 8, White Blood Count 3.1L, Red Blood Count 3.53L, Hemoglobin 11.6L, Hematocrit 34.6L, Mean Corpuscular Volume 97.9H, Mean Corpuscular Hemoglobin 32.8, Mean Corpuscular Hemoglobin Concent 33.5, Red Cell Distribution Width 13.3 , Platelet Count 116L, Neutrophils (%) (Auto) 48.7, Lymphocytes (%) (Auto) 38.0 , Monocytes (%) (Auto) 6.7H, Eosinophils (%) (Auto) 4.5H, Basophils (%) (Auto) 0.4, Neutrophils # (Auto) 1.5L, Lymphocytes # (Auto) 1.2L, Monocytes # (Auto) 0.2, Eosinophils # (Auto) 0.1, Basophils # (Auto) 0.0, Blood Urea Nitrogen 28H, Creatinine 0.97, Sodium Level 147H, Potassium Level 4.6, Chloride Level 112H, Carbon Dioxide Level 27, Calcium Level 9.4, Glomerular Filtration Rate > 60.0, Large Unclassified Cells # 0.1, Large Unclassified Cells % 1.7 CBC/BMP Laboratory Tests 10/13/16 06:42 Calcium Level 9.4, Red Blood Count 3.53 L, Mean Corpuscular Volume 97.9 H, Mean Corpuscular Hemoglobin 32.8, Mean Corpuscular Hemoglobin Concent 33.5, Red Cell Distribution Width 13.3, Neutrophils (%) (Auto) 48.7, Lymphocytes (%) (Auto) 38.0, Monocytes (%) (Auto) 6.7 H, Eosinophils (%) (Auto) 4.5 H, Basophils (%) ( Auto) 0.4, Neutrophils # (Auto) 1.5 L, Lymphocytes # (Auto) 1.2 L, Monocytes # ( Auto) 0.2, Eosinophils # (Auto) 0.1, Basophils # (Auto) 0.0 Microbiology Microbiology 10/10/16 Urine Culture - Final, Complete GME ATTESTATION GME ATTESTATION My preceptor for this patient encounter was physically present in the building during the encounter and was fully available. As needed, all aspects of the patient interview, examination, medical decision making process, and medical care plan development were reviewed and approved by the preceptor. Preceptor is aware and concurs with the plan as stated in the body of this note and will attest to such by his/her cosignature. MILAN MONET DO Oct 13, 2016 11:53
[2016-10-13 12:45] VITALS: BP 130/68
[2016-10-13 14:00] VITALS: BP 115/70
[2016-10-13] MEDS: ONDANSETRON 4 MG ORAL DISINTEGRATING TAB (S0181) PO PRN (18:34)
[2016-10-13 22:00] VITALS: BP 156/88
[2016-10-13] MEDS: rOPINIRole 1MG TAB PO SCH (22:03)
[2016-10-13] MEDS: LEVEMIR (INSULIN DETEMIR) 1 UNITS/0.01ML SC SCH (22:04)
[2016-10-14 06:00] VITALS: BP 134/68
[2016-10-14 06:00] LABS: BASO % 0.8 % (0.0-1.0); EOS # 0.1 K/mm3 (0.0-0.50); EOS % 2.9 % (0.0-3.0); LARGE UNSTAINED CELL # 0.1 K/mm3 (0.0-0.4); LARGE UNSTAINED CELL % 1.8 % (0.0-4.0); LYMPH # 1.2 K/mm3 (1.5-4.5); LYMPH % 39.1 % (24.0-44.0); MEAN CORPUSCULAR HEMOGLOBIN 33.4 pg (27.0-33.0); MEAN CORPUSCULAR HGB CONC 34.6 g/dl (32.0-36.5); MEAN CORPUSCULAR VOLUME 96.4 fl (80.0-96.0); MONO # 0.2 K/mm3 (0.0-0.8); MONO % 6.1 % (0.0-5.0); NEUTROPHILS # 1.4 K/mm3 (1.8-7.7); NEUTROPHILS % 49.3 % (36.0-66.0); PLATELET COUNT, AUTOMATED 107 k/mm3 (150-450); WHITE BLOOD COUNT 2.9 K/mm3 (4.0-10.0)
[2016-10-14 06:10] LABS: ANION GAP 7 MEQ/L (8-16); BLOOD UREA NITROGEN 22 MG/DL (7-18); CARBON DIOXIDE LEVEL 25 MEQ/L (21-32); CHLORIDE LEVEL 114 MEQ/L (98-107); CREATININE FOR GFR 0.75 MG/DL (0.55-1.02); GLOMERULAR FILTRATION RATE > 60.0 (>58); GLUCOSE, FASTING 188 MG/DL (70-105); POTASSIUM SERUM 4.5 MEQ/L (3.5-5.1); SODIUM LEVEL 146 MEQ/L (136-145)
[2016-10-14] MEDS: CARVedilol 12.5 MG TAB PO SCH ×2 (08:04→21:18)
[2016-10-14] MEDS: **hydrALAZINE HCL** 25 MG TAB PO SCH ×4 (08:04→21:19)
[2016-10-14] MEDS: ENOXAPARIN 30 MG/0.3 ML SYR (J1650) SC SCH (09:00)
[2016-10-14] MEDS: NYSTATIN 100,000 UNITS/GM TOPICAL PWD 15 GM TOP SCH ×2 (09:00→21:21)
[2016-10-14] MEDS ORDERED: FUROSEMIDE 80 MG TAB PO SCH (09:00)
--- NOTE | 2016-10-14 09:31 | IPNPDOC ---
Subjective Date Seen The patient was seen on 10/14/16. Subjective Chief Complaint/HPI The patient is a 50-year-old female admitted with a reason for visit of Acute Kidney Injury. General: Denies: Chills, Fatigue, Malaise, Night Sweats Constitutional: Denies: Chills, Fever, Malaise Eyes: Denies: Conjunctivae inflammation, Eyelid inflammation, Pain, Redness, Vision change ENT: Denies: Head Aches Skin: Denies: Bruising, Itching, Jaundice, Lesions, Rash Pulmonary: Reports: Dyspnea (pt states she is SOB with ambulation), Denies: Cough, Pleuritic Chest Pain Cardiovascular: Reports: Edema (+1 b/l LE similar to one day prio), Denies: Chest Pain, Palpitations Gastrointestinal: Denies: Abdominal Pain, Constipation, Diarrhea, Nausea, Vomiting Genitourinary: Denies: Dysuria Neurological: Denies: Numbness, Weakness Psych: Reports: Mood Normal Objective Physical Examination General Exam: Positive: Alert, Cooperative, No Acute Distress Eye Exam: Positive: Conjunctiva & lids normal, EOMI, Negative: Ptosis, Sclera icteric ENT Exam: Positive: Atraumatic, Mucous membr. moist/pink, Nares Patent, Tongue Midline, Negative: Pharyngeal Edema Neck Exam: Positive: Supple Chest Exam: Positive: Clear to auscultation, Normal air movement, Negative: Rales, Rhonchi, Wheezing Heart Exam: Positive: Normal S1, Normal S2, Rate Normal, Negative: Bradycardic, Tachycardic Abdomen Exam: Positive: Normal bowel sounds, Soft, Negative: Hepatospenomegaly, Tenderness Extremity Exam: Positive: Edema (1+ b/l LE, pitting, about the same from one day prior ) Psych Exam: Positive: Oriented x 3 Assessment /Plan Problems (1) Acute kidney injury Status: Acute Response to Treatment: Stable Problem Text: most likely secondary to ineffective circulating volume renal u/s showed no acute obstruction, kidney stones or hydronephrosis IV lasix for diuresis , +1060 mL so far- -2075 ml one day prior pt is diuresing well continue PO lasix creatine .75 today will avoid nephrotoxin medication renal dose medicines strict I&O's urine culture negative daily weights (2) Edema Status: Chronic Response to Treatment: Stable Problem Text: + 1 b/l LE edema still, seems about the same as one day prio secondary to most likely, chronic liver disease albumin 2.4 IV lasix therapy , +1060 mL so far, was -2075 mL one day prior ECHO showed grade 2 diastolic dysfunction, increased CVP and pulmonary HTN continue PO lasix liver u/s negative for portal vein clot, showed mild hepatomegaly and fatty liver ct ab/pelvis showed hepatosplenomegaly, no obstructive or inflammatory bowel changes, no evidence of hydronephrosis or nephrolithiasis, small stable umbilical hernia with only omental fat, stable moderate spondylosis of spine. (3) Hepatic encephalopathy Status: Acute Response to Treatment: Stable Problem Text: 119 today will repeat most likely 2/2 chronic liver disease begin lactulose and Rifaximin medical therapy (4) HTN (hypertension) Status: Acute Response to Treatment: Stable Problem Text: continued home medications 134/68 currently Coreg and hydralazine medical therapy. will continue (5) Increased ammonia level Status: Acute Response to Treatment: Stable Problem Text: 119 today will repeat most likely 2/2 chronic liver disease begin lactulose and Rifaximin medical therapy (6) SOB (shortness of breath) Status: Acute Response to Treatment: Stable Problem Text: pt states it is improved since her admission two days prior, mostly bothers her with ambulation nocturnal pulse ox.ordered 98% on room air (7) Colon spasm Status: Chronic Response to Treatment: Stable Problem Text: bentyl therapy (8) Essential tremor Status: Chronic Response to Treatment: Stable Problem Text: pt still complaining of ongoing tremor in her hands b/l present even before admission but it seems to be bothering her more now in the hospital most likely essential tremor, made worse with intentional movements as per pt. propranolol 40 BID w/ hold parameters HR <70BPM continue to monitor (9) DVT prophylaxis Status: Acute Response to Treatment: Stable Problem Text: lovenox therapy Plan/VTE VTE Prophylaxis Ordered?: Yes Plan/Urinary Catheter Reason for insertion/continuin: Critical Pt monitoring VS, I&O, 24H, Fishbone Vital Signs/I&O Vital Signs Date Time Temp Pulse Resp B/P Pulse Ox O2 Delivery O2 Flow Rate FiO2 10/14/16 08:04 134/68 10/14/16 08:04 72 10/14/16 06:00 97.5 19 99 Room Air 10/12/16 09:00 4.0 I&O- Last 24 Hours up to 6 AM 10/14/16 06:00 Intake Total 1320 ml Output Total 400 ml Balance 920 ml Laboratory Data 24H LABS Laboratory Tests 2 10/13/16 11:30: Bedside Glucose (Misc Panel) 204H 10/13/16 17:01: Bedside Glucose (Misc Panel) 243H 10/13/16 20:03: Bedside Glucose (Misc Panel) 218H 10/14/16 05:41: Anion Gap 7L, White Blood Count 2.9L, Red Blood Count 3.35L, Hemoglobin 11.2L, Hematocrit 32.3L, Mean Corpuscular Volume 96.4H, Mean Corpuscular Hemoglobin 33.4H, Mean Corpuscular Hemoglobin Concent 34.6, Red Cell Distribution Width 13.0, Platelet Count 107L, Neutrophils (%) (Auto) 49.3, Lymphocytes (%) (Auto) 39.1, Monocytes (%) (Auto) 6.1H, Eosinophils (%) (Auto) 2.9, Basophils (%) (Auto ) 0.8, Neutrophils # (Auto) 1.4L, Lymphocytes # (Auto) 1.2L, Monocytes # (Auto) 0.2, Eosinophils # (Auto) 0.1, Basophils # (Auto) 0.0, Blood Urea Nitrogen 22H, Creatinine 0.75, Sodium Level 146H, Potassium Level 4.5, Chloride Level 114H, Carbon Dioxide Level 25, Calcium Level 9.0, Glomerular Filtration Rate > 60.0, Large Unclassified Cells # 0.1, Large Unclassified Cells % 1.8 10/14/16 09:09: CBC/BMP Laboratory Tests 10/14/16 05:41 Calcium Level 9.0, Red Blood Count 3.35 L, Mean Corpuscular Volume 96.4 H, Mean Corpuscular Hemoglobin 33.4 H, Mean Corpuscular Hemoglobin Concent 34.6, Red Cell Distribution Width 13.0, Neutrophils (%) (Auto) 49.3, Lymphocytes (%) (Auto ) 39.1, Monocytes (%) (Auto) 6.1 H, Eosinophils (%) (Auto) 2.9, Basophils (%) ( Auto) 0.8, Neutrophils # (Auto) 1.4 L, Lymphocytes # (Auto) 1.2 L, Monocytes # ( Auto) 0.2, Eosinophils # (Auto) 0.1, Basophils # (Auto) 0.0 Microbiology Microbiology 10/10/16 Urine Culture - Final, Complete GME ATTESTATION GME ATTESTATION My preceptor for this patient encounter was physically present in the building during the encounter and was fully available. As needed, all aspects of the patient interview, examination, medical decision making process, and medical care plan development were reviewed and approved by the preceptor. Preceptor is aware and concurs with the plan as stated in the body of this note and will attest to such by his/her cosignature. MILAN MONET DO Oct 14, 2016 09:30
[2016-10-14] MEDS: ASPIRIN 81 MG ENTERIC TAB PO SCH (10:00)
[2016-10-14] MEDS: MAGNESIUM OXIDE 400 MG TAB (MAG-OX) PO SCH (10:00)
[2016-10-14] MEDS: rifAXIMin 550 MG TAB (XIFAXAN) PO SCH ×2 (10:00→21:19)
[2016-10-14] MEDS: LACTULOSE 20 GM/30 ML SYRUP UD PO PRN (10:00)
[2016-10-14] MEDS: GABAPENTIN 400 MG CAP PO SCH ×3 (10:00→21:19)
[2016-10-14] MEDS: FUROSEMIDE 40 MG TAB PO SCH (10:01)
[2016-10-14] MEDS: CETIRIZINE (ZyrTEC) 10 MG TAB PO SCH (10:01)
[2016-10-14] MEDS: buPROPion **XL** TABLET 150MG (WELLBUTRIN XL) PO SCH (10:01)
[2016-10-14] MEDS: MONTELUKAST 10 MG TAB PO SCH (10:01)
[2016-10-14] MEDS: DICYCLOMINE 10 MG CAP PO SCH ×4 (10:01→21:19)
[2016-10-14] MEDS: SENOKOT S TAB PO SCH ×2 (10:01→21:17)
[2016-10-14] MEDS: OMEPRAZOLE 20 MG CAP PO SCH (10:01)
[2016-10-14] MEDS: HumaLOG INSULIN (NovoLOG) PER UNIT SC SCH ×4 (10:02→21:32)
[2016-10-14 14:00] VITALS: BP 150/70
[2016-10-14] MEDS: ACETAMINOPHEN TAB 650MG DOSE (2X325MG) PO PRN ×2 (16:22→21:22)
[2016-10-14] MEDS: rOPINIRole 1MG TAB PO SCH (21:16)
[2016-10-14] MEDS: LEVEMIR (INSULIN DETEMIR) 1 UNITS/0.01ML SC SCH (21:19)
[2016-10-14 22:00] VITALS: BP 152/60
[2016-10-15 06:00] VITALS: BP 132/82
[2016-10-15] MEDS: ACETAMINOPHEN TAB 650MG DOSE (2X325MG) PO PRN (06:18)
[2016-10-15 07:31] LABS: BASO % 0.5 % (0.0-1.0); EOS # 0.1 K/mm3 (0.0-0.50); EOS % 2.8 % (0.0-3.0); LARGE UNSTAINED CELL # 0.1 K/mm3 (0.0-0.4); LARGE UNSTAINED CELL % 1.8 % (0.0-4.0); LYMPH # 1.2 K/mm3 (1.5-4.5); LYMPH % 34.6 % (24.0-44.0); MEAN CORPUSCULAR HEMOGLOBIN 32.9 pg (27.0-33.0); MEAN CORPUSCULAR HGB CONC 33.9 g/dl (32.0-36.5); MEAN CORPUSCULAR VOLUME 97.1 fl (80.0-96.0); MONO # 0.2 K/mm3 (0.0-0.8); MONO % 6.6 % (0.0-5.0); NEUTROPHILS # 1.8 K/mm3 (1.8-7.7); NEUTROPHILS % 53.6 % (36.0-66.0); PLATELET COUNT, AUTOMATED 106 k/mm3 (150-450); RED CELL DISTRIBUTION WIDTH 13.2 % (11.5-14.5); WHITE BLOOD COUNT 3.4 K/mm3 (4.0-10.0)
[2016-10-15 07:53] LABS: ANION GAP 7 MEQ/L (8-16); BLOOD UREA NITROGEN 18 MG/DL (7-18); CALCIUM LEVEL 8.5 MG/DL (8.5-10.1); CARBON DIOXIDE LEVEL 25 MEQ/L (21-32); CHLORIDE LEVEL 114 MEQ/L (98-107); CREATININE FOR GFR 0.67 MG/DL (0.55-1.02); GLOMERULAR FILTRATION RATE > 60.0 (>58); GLUCOSE, FASTING 185 MG/DL (70-105); POTASSIUM SERUM 4.1 MEQ/L (3.5-5.1); SODIUM LEVEL 146 MEQ/L (136-145)
[2016-10-15] MEDS: ENOXAPARIN 30 MG/0.3 ML SYR (J1650) SC SCH (08:47)
[2016-10-15] MEDS: HumaLOG INSULIN (NovoLOG) PER UNIT SC SCH ×2 (08:47→12:41)
[2016-10-15] MEDS: buPROPion **XL** TABLET 150MG (WELLBUTRIN XL) PO SCH (08:47)
[2016-10-15] MEDS: LACTULOSE 20 GM/30 ML SYRUP UD PO PRN (08:47)
[2016-10-15] MEDS: SENOKOT S TAB PO SCH (08:48)
[2016-10-15] MEDS: OMEPRAZOLE 20 MG CAP PO SCH (08:48)
[2016-10-15] MEDS: GABAPENTIN 400 MG CAP PO SCH (08:48)
[2016-10-15] MEDS: MONTELUKAST 10 MG TAB PO SCH (08:49)
[2016-10-15] MEDS: FUROSEMIDE 40 MG TAB PO SCH (08:49)
[2016-10-15] MEDS: MAGNESIUM OXIDE 400 MG TAB (MAG-OX) PO SCH (08:49)
[2016-10-15] MEDS: DICYCLOMINE 10 MG CAP PO SCH ×2 (08:49→12:41)
[2016-10-15] MEDS: rifAXIMin 550 MG TAB (XIFAXAN) PO SCH (08:49)
[2016-10-15] MEDS: CETIRIZINE (ZyrTEC) 10 MG TAB PO SCH (08:49)
[2016-10-15] MEDS: NYSTATIN 100,000 UNITS/GM TOPICAL PWD 15 GM TOP SCH (08:50)
[2016-10-15] MEDS: ASPIRIN 81 MG ENTERIC TAB PO SCH (08:50)
[2016-10-15] MEDS: **hydrALAZINE HCL** 25 MG TAB PO SCH ×2 (08:53→12:42)
[2016-10-15] MEDS: CARVedilol 12.5 MG TAB PO SCH (08:53)
[2016-10-15] MEDS ORDERED: rOPINIRole 1MG TAB PO SCH (09:00)
--- NOTE | 2016-10-15 09:04 | IPNPDOC ---
Subjective Date Seen The patient was seen on 10/15/16. Subjective Chief Complaint/HPI The patient is a 50-year-old female admitted with a reason for visit of Acute Kidney Injury. General: Denies: Chills, Fatigue, Night Sweats Constitutional: Denies: Chills Eyes: Denies: Conjunctivae inflammation, Eyelid inflammation, Pain, Redness, Vision change ENT: Denies: Head Aches Skin: Denies: Bruising, Itching, Jaundice, Lesions, Rash Pulmonary: Denies: Cough, Dyspnea Cardiovascular: Denies: Chest Pain, Edema, Lt Headedness, Orthopnea, Palpitations, Paroxysmal Noc. Dyspnea Gastrointestinal: Denies: Abdominal Pain, Constipation, Diarrhea, Nausea, Vomiting Genitourinary: Denies: Dysuria Musculoskeletal: Denies: Neck Pain Neurological: Denies: Weakness Psych: Reports: Mood Normal Objective Physical Examination General Exam: Positive: Alert, Cooperative, No Acute Distress Eye Exam: Positive: Conjunctiva & lids normal, EOMI, Negative: Ptosis, Sclera icteric ENT Exam: Positive: Atraumatic, Mucous membr. moist/pink, Nares Patent, Tongue Midline, Negative: Pharyngeal Edema Neck Exam: Positive: Supple Chest Exam: Positive: Clear to auscultation, Normal air movement, Negative: Rales, Rhonchi, Wheezing Heart Exam: Positive: Normal S1, Normal S2, Rate Normal, Negative: Bradycardic, Tachycardic Abdomen Exam: Positive: Normal bowel sounds, Soft, Negative: Hepatospenomegaly, Tenderness Extremity Exam: Positive: Edema (1+ b/l LE, pitting, about the same from one day prior ) Psych Exam: Positive: Oriented x 3 Assessment /Plan Problems (1) Acute kidney injury Status: Acute Response to Treatment: Stable Problem Text: most likely secondary to ineffective circulating volume renal u/s showed no acute obstruction, kidney stones or hydronephrosis IV lasix for diuresis , +360 mL so far- -2075 ml two days prior pt was diuresing well continue PO lasix creatine .67 today will avoid nephrotoxin medication renal dose medicines strict I&O's urine culture negative daily weights (2) Edema Status: Chronic Response to Treatment: Stable Problem Text: + 1 b/l LE edema still, seems about the same as one day prior secondary to most likely, chronic liver disease albumin 2.4 IV lasix therapy , +360 mL so far, was -2075 mL two days prior ECHO showed grade 2 diastolic dysfunction, increased CVP and pulmonary HTN continue PO lasix liver u/s negative for portal vein clot, showed mild hepatomegaly and fatty liver ct ab/pelvis showed hepatosplenomegaly, no obstructive or inflammatory bowel changes, no evidence of hydronephrosis or nephrolithiasis, small stable umbilical hernia with only omental fat, stable moderate spondylosis of spine. (3) HTN (hypertension) Status: Acute Response to Treatment: Stable Problem Text: continued home medications 132/82 currently Coreg and hydralazine medical therapy. will continue (4) Asterixis Status: Acute Response to Treatment: Stable Problem Text: pt states that ongoing tremor in her hands b/l is much improved present even before admission but it seems to be bothering her more now in the hospital most likely 2/2 increased ammonia levels, 74 from 119 one day prior with lactulose and rifaxmin therapy d/c propranolol 40 BID w/ hold parameters HR <70BPM one day prior continue to monitor (5) Increased ammonia level Status: Acute Response to Treatment: Stable Problem Text: patient states tremors are much better today 74 down from 119 today will monitor most likely 2/2 chronic liver disease begin lactulose and Rifaximin medical therapy (6) SOB (shortness of breath) Status: Acute Response to Treatment: Stable Problem Text: pt states it is improved since her admission two days prior, mostly bothers her with ambulation nocturnal pulse ox.ordered 98% on room air (7) Colon spasm Status: Chronic Response to Treatment: Stable Problem Text: bentyl therapy (8) DVT prophylaxis Status: Acute Response to Treatment: Stable Problem Text: lovenox therapy Plan/VTE VTE Prophylaxis Ordered?: Yes Plan/Urinary Catheter Reason for insertion/continuin: Critical Pt monitoring VS, I&O, 24H, Fishbone Vital Signs/I&O Vital Signs Date Time Temp Pulse Resp B/P Pulse Ox O2 Delivery O2 Flow Rate FiO2 10/15/16 08:53 71 149/73 10/15/16 06:00 98.5 19 97 Room Air 10/12/16 09:00 4.0 I&O- Last 24 Hours up to 6 AM 10/15/16 06:00 Intake Total 1580 ml Output Total 600 ml Balance 980 ml Laboratory Data 24H LABS Laboratory Tests 2 10/14/16 09:09: Ammonia 119H 10/14/16 11:46: Bedside Glucose (Misc Panel) 176H 10/14/16 16:50: Bedside Glucose (Misc Panel) 381H 10/14/16 20:13: Bedside Glucose (Misc Panel) 273H 10/15/16 06:32: White Blood Count 3.4L, Red Blood Count 3.34L, Hemoglobin 11.0L, Hematocrit 32.4L, Mean Corpuscular Volume 97.1H, Mean Corpuscular Hemoglobin 32.9, Mean Corpuscular Hemoglobin Concent 33.9, Red Cell Distribution Width 13.2, Platelet Count 106L, Neutrophils (%) (Auto) 53.6, Lymphocytes (%) (Auto) 34.6, Monocytes (%) (Auto) 6.6H, Eosinophils (%) (Auto) 2.8, Basophils (%) (Auto) 0.5, Neutrophils # (Auto) 1.8, Lymphocytes # (Auto) 1.2L, Monocytes # (Auto) 0.2, Eosinophils # (Auto) 0.1, Basophils # (Auto) 0.0, Large Unclassified Cells # 0.1 , Large Unclassified Cells % 1.8 10/15/16 06:36: Ammonia 71H, Anion Gap 7L, Blood Urea Nitrogen 18, Creatinine 0.67, Sodium Level 146H, Potassium Level 4.1, Chloride Level 114H, Carbon Dioxide Level 25, Calcium Level 8.5, Glomerular Filtration Rate > 60.0 CBC/BMP Laboratory Tests 10/15/16 06:32 Red Blood Count 3.34 L, Mean Corpuscular Volume 97.1 H, Mean Corpuscular Hemoglobin 32.9, Mean Corpuscular Hemoglobin Concent 33.9, Red Cell Distribution Width 13.2, Neutrophils (%) (Auto) 53.6, Lymphocytes (%) (Auto) 34.6, Monocytes (%) (Auto) 6.6 H, Eosinophils (%) (Auto) 2.8, Basophils (%) ( Auto) 0.5, Neutrophils # (Auto) 1.8, Lymphocytes # (Auto) 1.2 L, Monocytes # ( Auto) 0.2, Eosinophils # (Auto) 0.1, Basophils # (Auto) 0.0 10/15/16 06:36 Calcium Level 8.5 Microbiology Microbiology 10/10/16 Urine Culture - Final, Complete GME ATTESTATION GME ATTESTATION My preceptor for this patient encounter was physically present in the building during the encounter and was fully available. As needed, all aspects of the patient interview, examination, medical decision making process, and medical care plan development were reviewed and approved by the preceptor. Preceptor is aware and concurs with the plan as stated in the body of this note and will attest to such by his/her cosignature. MILAN MONET DO Oct 15, 2016 09:04
[2016-10-15] MEDS ORDERED: XIFA550T PO (11:26)
[2016-10-15] MEDS ORDERED: FURO40TA2 PO (11:26)
[2016-10-15] MEDS ORDERED: LACT20EL PO (11:26)
[2016-10-15] MEDS: HYDROmorphone 2 MG TAB PO SCH (11:42)
--- NOTE | 2016-10-15 11:43 | DS.PDOC ---
Discharge Summary General Date of Admission Oct 09, 2016 at 18:18 Date of Discharge 10-15-16 Discharge Summary PROCEDURES PERFORMED DURING STAY: ECHO ADMITTING DIAGNOSES: 1. Acute Kidney Injury 2. Chronic lower extremity edema, worsening 3. SOB 4. DM2 5. HTN 6. Restless Leg Syndrome 7. Hx of asthma 8. Chronic constipation 9. Colonic spasms DISCHARGE DIAGNOSES: 1. Lower extremity edema likely secondary to chronic liver disease, Diastolic CHF, pulmonary HTn and hypoalbuminemia 2. RUBY 3. Non-alcoholic steatohepatitis 4. Hypoalbuminemia 5. HTN 6. Pancytopenia 7. early hepatic encephalopathy COMPLICATIONS/CHIEF COMPLAINT: Acute Kidney Injury. HISTORY OF PRESENT ILLNESS: The patient is a 50-year-old female with history of nonalcoholic steatohepatitis, liver cirrhosis by imaging, obesity, HTN, asthma , resltess leg syndrome, chronic lower extremity edema, colonic spasms and DM2 who presented with the complaint of increased lower extremity edema for the past few months with accompanying dizziness and SOB on October 09, 2016. HOSPITAL COURSE: During the course of her stay, the patient was diuresed for her excess edema, she also underwent an ECHO which showed grade 2 diastolic dysfunction, Normal LV size with mild left ventricular hypertrophy and overall likely preserved LV systolic function. Grade 2 diastolic dysfunction.No hemodynamically significant valvular disease.Likely very high central venous pressure. At least moderate pulmonary hypertension. The patient also underwent liver ultrasound which essentially demonstrated fatty liver with no portal vein clot, with mild hepatomegaly and splenomegaly.The patient also demonstrated elevated ammonia levels during her stay which likely contributed to the tremors she would complain about, lactulose and rifaxmin therapy was initiated and ammonia levels did decrease. On day of discharge, the patient stated that her tremors were much better, she felt good and only complained of her chronic low back pain. DISCHARGE MEDICATIONS: Please see below. ALLERGIES: Please see below. PHYSICAL EXAMINATION ON DISCHARGE: VITAL SIGNS: Please see below. GENERAL: laying comfortably in bed, no acute distress, tired, conversant HEENT: Nares patent b/l, tongue midline, moist mucus membranes, EOMI NECK: supple CARDIOVASCULAR EXAMINATION: normal s1 and s2, no rubs, murmurs or gallops appreciated RESPIRATORY EXAMINATION: CTA b/l, no wheezing, rhonchi or rales appreciated. ABDOMINAL EXAMINATION: obese, soft, non-distended, no organmegaly, NABSx4, no guarding or rebound ridgity SKIN: intact NEUROLOGICAL EXAMINATION: no focal deficits PSYCHIATRIC EXAMINATION: appropriate demenor and affect LABORATORY DATA: Please see below. IMAGING: CXR 10-09-2016 Impression: No acute disease. 10-09-16 lower extremity duplex u/s Impression: There is no deep vein thrombus on the right or the left . Renal u/s 10-09-2016 IMPRESSION: Both kidneys are echogenic compatible with medical renal disease. Thank you for your kind referral of this patient. 10-09-2016 ab/pelvis CT Impression: 1. Hepatosplenomegaly. 2. No obstructive or inflammatory bowel changes. 3. No evidence of hydronephrosis or nephrolithiasis. 4. Small stable umbilical hernia containing only omental fat. 5. Stable moderate spondylosis of the spine. Liver u/s 10-11-2015 IMPRESSION: Limited by bowel gas and body habitus. The patient is status post cholecystectomy. Fibrofatty infiltration of the liver with mild hepatomegaly. Moderate splenomegaly. Normal direction of flow in the portal veins with no gross thrombosis of the visualized portions. However, the exam is extremely limited as discussed above. PROGNOSIS: stable, favorable ACTIVITY: as tolerated DIET: as tolerated DISCHARGE PLAN: follow with PCP in one week of discharge DISPOSITION: home DISCHARGE INSTRUCTIONS: 1. follow with PCP in one week of discharge ITEMS TO FOLLOWUP ON ON OUTPATIENT: 1. follow with PCP in one week of discharge DISCHARGE CONDITION: Stable TIME SPENT ON DISCHARGE: Greater than 20 minutes. Vital Signs/I&Os Vital Signs Date Time Temp Pulse Resp B/P Pulse Ox O2 Delivery O2 Flow Rate FiO2 10/15/16 08:53 71 149/73 10/15/16 08:45 Room Air 10/15/16 06:00 98.5 19 97 10/12/16 09:00 4.0 I&O- Last 24 Hours up to 6 AM 10/15/16 06:00 Intake Total 1580 ml Output Total 600 ml Balance 980 ml Laboratory Data Labs 24H Laboratory Tests 2 10/14/16 11:46: Bedside Glucose (Misc Panel) 176H 10/14/16 16:50: Bedside Glucose (Misc Panel) 381H 10/14/16 20:13: Bedside Glucose (Misc Panel) 273H 10/15/16 06:32: White Blood Count 3.4L, Red Blood Count 3.34L, Hemoglobin 11.0L, Hematocrit 32.4L, Mean Corpuscular Volume 97.1H, Mean Corpuscular Hemoglobin 32.9, Mean Corpuscular Hemoglobin Concent 33.9, Red Cell Distribution Width 13.2, Platelet Count 106L, Neutrophils (%) (Auto) 53.6, Lymphocytes (%) (Auto) 34.6, Monocytes (%) (Auto) 6.6H, Eosinophils (%) (Auto) 2.8, Basophils (%) (Auto) 0.5, Neutrophils # (Auto) 1.8, Lymphocytes # (Auto) 1.2L, Monocytes # (Auto) 0.2, Eosinophils # (Auto) 0.1, Basophils # (Auto) 0.0, Large Unclassified Cells # 0.1 , Large Unclassified Cells % 1.8 10/15/16 06:36: Ammonia 71H, Anion Gap 7L, Blood Urea Nitrogen 18, Creatinine 0.67, Sodium Level 146H, Potassium Level 4.1, Chloride Level 114H, Carbon Dioxide Level 25, Calcium Level 8.5, Glomerular Filtration Rate > 60.0 CBC/BMP Laboratory Tests 10/15/16 06:32 Red Blood Count 3.34 L, Mean Corpuscular Volume 97.1 H, Mean Corpuscular Hemoglobin 32.9, Mean Corpuscular Hemoglobin Concent 33.9, Red Cell Distribution Width 13.2, Neutrophils (%) (Auto) 53.6, Lymphocytes (%) (Auto) 34.6, Monocytes (%) (Auto) 6.6 H, Eosinophils (%) (Auto) 2.8, Basophils (%) ( Auto) 0.5, Neutrophils # (Auto) 1.8, Lymphocytes # (Auto) 1.2 L, Monocytes # ( Auto) 0.2, Eosinophils # (Auto) 0.1, Basophils # (Auto) 0.0 10/15/16 06:36 Calcium Level 8.5 FSBS Laboratory Tests Test 10/14/16 11:46 10/14/16 16:50 10/14/16 20:13 Range/Units Bedside Glucose (Misc Panel) 176 381 273 70-105 MG/DL Microbiology Microbiology 10/10/16 Urine Culture - Final, Complete Discharge Medications Scheduled (Babatunde Ty) 300 Unit/Ml Inj 44 UNIT SC QAM (Reported) (Arnuity Ellipta) 200 Mcg/Act Inh 200 MCG INH DAILY (Reported) Aspirin (Aspir-81) 81 Mg Tab 81 MG PO DAILY (Reported) Bupropion Hcl (Bupropion HCl Xl) 150 Mg Tab 150 MG PO DAILY (Reported) Carvedilol (Carvedilol) 25 Mg Tab 25 MG PO BID (Reported) Cetirizine HCl (Cetirizine HCl) 10 Mg Tab 10 MG PO DAILY (Reported) Dicyclomine HCl (Dicyclomine HCl) 10 Mg Cap 10 MG PO QID (Reported) Docusate Sod/Senna (Senna S 8.6-50 mg) 1 Tab Tab 2 TAB PO BID (Reported) Furosemide (Furosemide) 40 Mg Tab 40 MG PO DAILY Gabapentin (Gabapentin) 400 Mg Cap 400 MG PO TID (Reported) Hydralazine HCl (Hydralazine HCl) 25 Mg Tab 25 MG PO QID (Reported) Hydromorphone HCl (Hydromorphone HCl) 2 Mg Tab 2 MG PO TID (Reported) Insulin Aspart (Novolog) 100 U/Ml Inj 1 UNITS SC DAILY (Reported) PER SLIDING SCALE Lactulose (Lactulose) 10 Gm/15 Ml Adali 15 ML PO Q6H Losartan Potassium (Losartan Potassium) 50 Mg Tab 50 MG PO BID (Reported) Magnesium Oxide (Magnesium Oxide 400) 400 Mg Tab 400 MG PO DAILY (Reported) Montelukast Sodium (Montelukast Sodium) 10 Mg Tab 10 MG PO DAILY (Reported) Omeprazole (Omeprazole) 20 Mg Cap 20 MG PO DAILY (Reported) Riboflavin (Riboflavin) 100 Mg Cap 100 MG PO QHS (Reported) Rifaximin (Xifaxan) 550 Mg Tab 550 MG PO BID Ropinirole Hydrochloride (Ropinirole HCl) 4 Mg Tab 4 MG PO QHS (Reported) Scheduled PRN (Saline Nasal [place]) 0.65 % Spr 1 SPRAY NA PRN NASAL DRYNESS (Reported) Albuterol Sulfate (Proair Hfa) 108 Mcg/Act Aer 2 PUFF INH Q4H PRN PRN WHEEZING ( Reported) Albuterol/Ipratropium (Ipratropium [place]/Albut 0.5-2.5 (3) mg/3Ml) 1 Adali Adali 1 ADALI INH QID PRN PRN SHORTNESS OF BREATH (Reported) Clonazepam (Clonazepam) 1 Mg Tab 1 MG PO QHSP PRN PRN SLEEP (Reported) Ondansetron (Zofran Odt) 4 Mg Tab 4 MG PO Q4H PRN PRN NAUSEA (Reported) TAKES BEFORE DILAUDID Allergies Coded Allergies: Metformin (Verified Allergy, Intermediate, RASH, 11/05/12) Diltiazem (Verified Adverse Reaction, Intermediate, SWELLINGING IN HANDS, FEET, AND LEGS, 06/07/15) Phenazopyridine (Verified Adverse Reaction, Mild, BLEEDING, 11/05/12) Rosiglitazone (Verified Adverse Reaction, Mild, WATER RETENTION, 11/05/12) GME ATTESTATION GME ATTESTATION My preceptor for this patient encounter was physically present in the building during the encounter and was fully available. As needed, all aspects of the patient interview, examination, medical decision making process, and medical care plan development were reviewed and approved by the preceptor. Preceptor is aware and concurs with the plan as stated in the body of this note and will attest to such by his/her cosignature. MILAN MONET DO Oct 15, 2016 11:43
[2016-10-15 12:42] VITALS: BP 175/78
[2016-10-15 14:00] VITALS: BP 151/68
[2016-10-15] MEDS ORDERED: LACTULOSE 20 GM/30 ML SYRUP UD PO SCH (18:00)
== END 2016-10-15 15:58 | disposition home health service (06) ==
LOC: M ED 16:40 → M ED INP 18:18 → M MSPAV 21:25
PROVIDERS: ADMIT General Practice; ATTEND Internal Medicine
DX: K74.60 Unspecified cirrhosis of liver (principal); G93.49 Other encephalopathy; N17.9 Acute kidney failure, unspecified; D61.818 Other pancytopenia; K72.90 Hepatic failure, unspecified without coma; I50.32 Chronic diastolic (congestive) heart failure; E66.01 Morbid (severe) obesity due to excess calories; Z68.42 Body mass index [BMI] 45.0-49.9, adult; K75.81 Nonalcoholic steatohepatitis (NASH); K71.3 Toxic liver disease with chronic persistent hepatitis; R60.0 Localized edema; G25.81 Restless legs syndrome; K59.09 Other constipation; I10 Essential (primary) hypertension; J45.909 Unspecified asthma, uncomplicated; K58.9 Irritable bowel syndrome, unspecified; E11.9 Type 2 diabetes mellitus without complications; Z90.49 Acquired absence of other specified parts of digestive tract; Z88.8 Allergy status to other drugs, medicaments and biological substances; Z79.4 Long term (current) use of insulin; Z79.899 Other long term (current) drug therapy; Z79.82 Long term (current) use of aspirin; Z82.49 Family history of ischemic heart disease and other diseases of the circulatory system; Z83.3 Family history of diabetes mellitus; Z80.9 Family history of malignant neoplasm, unspecified

== ENCOUNTER → 2016-10-09 | Outpatient (REF) | payer OTHER ==
[~2016-10-09] MED LIST changes: +ARNU1INH3 INH; +BUPR150T3 PO; +BUPR75TA5 PO; +CARV25TA PO; +CETI10TA PO; -COLA100C PO; +COLA100C3 PO; +DICY10CA13 PO; +DUONSOL NEB; +FLUT11IN INH; +FURO1TAB15 PO; +HYDR-4266 PO; +HYDR2TAB2 PO; +INSUH10VL SC; +IPRASOL4 INH; +LOSA50TA20 PO; +MAGN400T5 PO; +MONT10TA2 PO; +NOVOLOG SLIDING SC; +PROA1AER INH; +RIBO100C PO; +ROPI4TAB PO; +SALI0.653; +SENN8.6T7 PO; +TOUJ1.2I SC; +ZOFR4TAB3 PO
== END ==
LOC: M LAB REF 13:12
PROVIDERS: ATTEND Obstetrics & Gynecology
DX: Z01.419 Encounter for gynecological examination (general) (routine) without abnormal findings (principal); Z11.51 Encounter for screening for human papillomavirus (HPV); R85.610 Atypical squamous cells of undetermined significance on cytologic smear of anus (ASC-US)

== ENCOUNTER → 2016-10-17 | Outpatient (CLI) | payer OTHER ==
[~2016-10-17] MED LIST changes: +ARNU1INH3 INH; +BUPR150T3 PO; +BUPR75TA5 PO; +CARV25TA PO; +CETI10TA PO; +DICY10CA13 PO; +DUONSOL NEB; +FLUT11IN INH; +FURO1TAB15 PO; +HYDR-4266 PO; +HYDR2TAB2 PO; +INSUH10VL SC; +IPRASOL4 INH; +LACT20EL PO; +LOSA50TA20 PO; +MAGN400T5 PO; +MONT10TA2 PO; +NOVOLOG SLIDING SC; +PROA1AER INH; +RIBO100C PO; +ROPI4TAB PO; +SALI0.653; +SENN8.6T7 PO; +TOUJ1.2I SC; +XIFA550T PO; +ZOFR4TAB3 PO
== END ==
LOC: M LAB 09:14
PROVIDERS: ATTEND Internal Medicine
DX: K76.9 Liver disease, unspecified (principal)

== ENCOUNTER → 2016-10-17 | Outpatient (CLI) | payer OTHER ==
--- NOTE | 2016-10-17 11:10 | REPMRS ---
Patient History The patient states she has not had a clinical breast exam in over a year. Family history of breast cancer in niece at age 50 or over. Patient states she had a right biopsy in 1993 and a left biopsy in 2012. Both benign results. Digital Mammo Screening Bilat: October 17, 2016 - Exam #: [id number] Bilateral CC and MLO view(s) were taken. Technologist: Nicolasa Garcia Technologist FINDINGS: There are scattered fibroglandular densities. There has been no change in the appearance of the mammogram from the prior studies. There is a mild amount of residual fibroglandular tissue which is fairly symmetric. There is no interval development of dominant mass, architectural distortion, or clustered microcalcification suggestive of malignancy. ASSESSMENT: BI-RADS/ACR category 1 mammogram. Negative. Recommendation Routine screening mammogram in 1 year (for women over age 40). This mammogram was interpreted with the aid of an FDA-approved computer-aided dectection system. Electronically Signed By: Pedro Pablo Lu MD 10/17/16 1933
== END ==
LOC: M RAD 09:51
PROVIDERS: ATTEND Obstetrics & Gynecology
DX: Z12.31 Encounter for screening mammogram for malignant neoplasm of breast (principal); Z80.3 Family history of malignant neoplasm of breast

== ENCOUNTER → 2016-10-22 | Outpatient (CLI) | payer OTHER ==
--- NOTE | 2016-10-22 10:22 | REP ---
MRI RIGHT SHOULDER WITHOUT CONTRAST: HISTORY: Arthritis of the right acromioclavicular joint. Comparison radiographs are from September 30, 2016. TECHNIQUE: Axial, oblique coronal, and oblique sagittal imaging planes are utilized for T1 and T2-weighted scans obtained in the usual fashion with and without fat saturation. MRI FINDINGS: Glenohumeral and acromioclavicular joints are normally aligned. There is moderate osteoarthritic hypertrophy and some marrow edema at the acromioclavicular joint. This is more prominent than is expected from the radiographic changes. Small quantity of fluid is seen in the joint. There is some edema in the adjacent soft tissues. There are areas of subcortical cyst formation in the anterolateral and posterolateral humeral head. These findings may be associated with impingement. Glenohumeral bone signal intensity is otherwise normal. There is marked heterogeneous increased signal intensity and thickening throughout the distal supraspinatus tendon from the musculotendinous junction to its distal insertion. On oblique coronal T2-weighted scans, there is a sliver of subacromial subdeltoid bursal fluid superior to the tendon and heterogeneous extensive and somewhat linear intra-tendon fluid signal is seen consistent with a non-retracted full-thickness supraspinatus cuff tear lesion. The infraspinatus and subscapularis tendons are intact. Biceps tendon is in the bony bicipital groove. There is some increased signal intensity in the tendon at its genu. There is joint fluid in the subcoracoid recess. No labral cartilage tear is seen. No loose body is appreciated. IMPRESSION: 1. Moderate arthropathy with marrow edema and joint fluid affecting the AC joint. 2. Advanced tendinosis with full-thickness supraspinatus cuff tear lesion. 3. Subcortical cyst formation in the humeral head. 4. Small glenohumeral joint effusion. 5. Small sliver of subacromial subdeltoid bursal fluid. Signed by Robbie Carvalho MD 10/22/2016 01:39 P
== END ==
LOC: M RAD 06:16
PROVIDERS: ATTEND Family Medicine
DX: M25.811 Other specified joint disorders, right shoulder (principal); M19.011 Primary osteoarthritis, right shoulder

== ENCOUNTER → 2016-11-10 | Outpatient (REF) | payer OTHER ==
[~2016-11-10] MED LIST changes: +FLUTISP
[2016-11-10 16:38] LABS: ALBUMIN 3.1 GM/DL (3.2-5.2); ALBUMIN/GLOBULIN RATIO 1.07 (1.00-1.93); BILIRUBIN,TOTAL 0.5 MG/DL (0.2-1.0); CALCIUM LEVEL 8.7 MG/DL (8.5-10.1); CREATININE FOR GFR 1.14 MG/DL (0.55-1.02); GLOMERULAR FILTRATION RATE 53.9 (>58); POTASSIUM SERUM 4.5 MEQ/L (3.5-5.1)
[2016-11-10 16:57] LABS: INR 1.18
[2016-11-10 17:13] LABS: DIFF SLIDE NUMBER 231; MEAN CORPUSCULAR HEMOGLOBIN 33.9 pg (27.0-33.0); MEAN CORPUSCULAR HGB CONC 33.6 g/dl (32.0-36.5); RED CELL DISTRIBUTION WIDTH 13.4 % (11.5-14.5); WHITE BLOOD COUNT 2.8 K/mm3 (4.0-10.0)
[2016-11-10 17:15] LABS: PLATELET COUNT, AUTOMATED 94 k/mm3 (150-450)
[2016-11-10 20:11] LABS: EOSINOPHILS 4 % (0-5)
== END ==
LOC: M SFHCLERA 13:41
PROVIDERS: ATTEND Family Medicine
DX: Z01.818 Encounter for other preprocedural examination (principal)

== ENCOUNTER → 2016-11-14 | Day surgery (SDC) | payer OTHER ==
[~2016-11-14] VITALS: Ht 180.3 cm; Wt 152.0 kg
[~2016-11-14] MED LIST changes: +KETOROLAC 60 MG/2 ML VIAL (J1885) As Ordered ONE; +LIDOCAINE 1% SDV INJ 30 ML VIAL As Ordered ONE; +LIDOCAINE 2% INJ 100 MG/5 ML SDV (FOR ANES.) As Ordered ONE; +LR 1,000 ML IV SCH; +METOCLOPRAMIDE INJ 10MG/2ML VIAL (J2765) As Ordered ONE; +MIDAZOLAM INJ 2 MG/2 ML VIAL (J2250) As Ordered ONE; +ONDANSETRON 4MG/2ML VIAL (J2405) As Ordered ONE; +ONDANSETRON 4MG/2ML VIAL (J2405) IV PRN; +PHENYLephrine HCL 500 MCG/5 ML (100MCG/ML) SYRINGE (J2370) As Ordered ONE; +PROPOFOL 200 MG/20 ML VIAL As Ordered ONE; +ROCURONIUM BROMIDE 50 MG/5 ML VIAL As Ordered ONE; +SILVER NITRATE APPLICATOR XX ONE; +SPIR50TA2 PO; +SUCCINYLCHOLINE 100 MG/5 ML SYRINGE (J0330) As Ordered ONE; +dexameTHASONE 4 MG/ML 1ML VIAL (J1100) As Ordered ONE; +ePHEDrine SULFATE 25 MG/5 ML(5MG/ML) SYRINGE As Ordered ONE; +fentaNYL 100 MCG/2 ML INJECTION (J3010) As Ordered ONE
[2016-11-14 12:54] LABS: MEAN CORPUSCULAR HGB CONC 34.9 g/dl (32.0-36.5); MEAN CORPUSCULAR VOLUME 97.3 fl (80.0-96.0); RED CELL DISTRIBUTION WIDTH 13.5 % (11.5-14.5); WHITE BLOOD COUNT 3.7 K/mm3 (4.0-10.0)
[2016-11-14] MEDS: LR 1,000 ML IV SCH (15:01)
[2016-11-14] MEDS: fentaNYL 100 MCG/2 ML INJECTION (J3010) IV PRN ×3 (15:25→15:35)
[2016-11-14 17:15] VITALS: BP 183/88
--- NOTE | 2016-11-16 08:37 | RO ---
DATE OF PROCEDURE: 11/14/2016 PREOPERATIVE DIAGNOSIS: Postmenopausal bleeding. PREOPERATIVE DIAGNOSIS: Postmenopausal bleeding. PROCEDURE PERFORMED: Hysteroscopy, dilation and curettage (D and C). SURGEON: Dr. Ciro Alvarez WHEEL PRESSER: HIRO Ghosh III ANESTHESIA: General via laryngeal mask airway (LMA). FINDINGS: Uterus sounded to 5.5 cm. Hysteroscopic findings of uniformly atrophic endometrium with no intrauterine masses. SPECIMENS TO PATHOLOGY: Endometrial curettings. ESTIMATED BLOOD LOSS: 20 mL. FLUIDS REPLACED: 1800 mL lactated Ringers. DRAINS: In-and-out catheter urine output approximately 50 mL. COMPLICATIONS: None. PREOPERATIVE ANTIBIOTICS: None indicated. INDICATIONS: Postmenopausal bleeding. The patient has recently been having menses-like bleeding, and she is postmenopausal (she had achieved greater than 12 months of amenorrhea prior to this recent onset of menses-like bleeding). She also has multiple risk factors for endometrial hyperplasia/carcinoma (age and obesity). PROCEDURE: The patient was counseled on all risks, benefits, indications and alternatives to the procedure. Informed consent was obtained. She was taken to the operating room with an IV running and placed on operating table in the dorsal supine position. General anesthesia was administered and secured without any difficulty. She was placed in low lithotomy position. She was prepared and draped in a normal sterile fashion. A time-out was performed per protocol. The bladder was drained under sterile conditions with an in-and-out catheter. A sterile speculum was placed with good visualization of the cervix. The anterior lip of the cervix was grasped with a single-tooth tenaculum and downward traction was applied. The cervix was then sequentially dilated with Cory dilators up to a #16. The uterus was sounded to 5.5 cm. A 3 mm hysteroscope was placed transcervically into the intrauterine cavity with the findings noted above. The hysteroscope was removed. The atrophic appearing endometrium was curetted with both a sharp curette and the Kevorkian curette. Minimal tissue return was noted consistent with the hysteroscope findings. The tissue was sent to pathology for permanent section. The hysteroscope was placed transcervically into the intrauterine cavity and no uterine injury was noted. No uterine perforation was noted. Minimal bleeding from the curetting was noted. All instruments were removed from the uterus and the vagina. The tenaculum sites were noted to be hemostatic at the time of removing all the instruments. The tenaculum sites were cauterized with silver nitrate. Again, excellent hemostasis was noted. The sponge, lap, needle and sponge counts were correct. The patient tolerated the entire procedure well. She was transferred to the postanesthesia care unit (PACU) in good and stable condition. SETH
== END | disposition home or self-care (01) ==
LOC: M SDC 12:06
PROVIDERS: ATTEND Obstetrics & Gynecology
DX: N95.0 Postmenopausal bleeding (principal); I10 Essential (primary) hypertension; J44.9 Chronic obstructive pulmonary disease, unspecified; F17.290 Nicotine dependence, other tobacco product, uncomplicated; E11.9 Type 2 diabetes mellitus without complications; K44.9 Diaphragmatic hernia without obstruction or gangrene; F32.9 Major depressive disorder, single episode, unspecified; N20.0 Calculus of kidney; M54.30 Sciatica, unspecified side; D69.6 Thrombocytopenia, unspecified; N14.2 Nephropathy induced by unspecified drug, medicament or biological substance; M12.9 Arthropathy, unspecified; M54.2 Cervicalgia; G89.29 Other chronic pain; E83.42 Hypomagnesemia; R60.9 Edema, unspecified; N39.0 Urinary tract infection, site not specified; E88.09 Other disorders of plasma-protein metabolism, not elsewhere classified; G25.81 Restless legs syndrome; I49.3 Ventricular premature depolarization; R00.2 Palpitations; R16.1 Splenomegaly, not elsewhere classified; K52.9 Noninfective gastroenteritis and colitis, unspecified; Z79.899 Other long term (current) drug therapy; Z79.82 Long term (current) use of aspirin; Z79.4 Long term (current) use of insulin
CPT/HCPCS: 36415; 58558; 85027; 86850; 88305; 96374; 96375; J0330; J1100; J1885; J2250; J2370; J2405; J2765; J3010

== ENCOUNTER 2016-11-27 10:48 | Outpatient (RCR) | payer OTHER ==
[2016-12-12] MEDS ORDERED: SENN8.6T10 PO (14:50)
[2016-12-17] MEDS ORDERED: LACT20EL PO (07:18)
== END 2016-12-03 | disposition home or self-care (01) ==
LOC: M PT 10:48
PROVIDERS: ATTEND Nurse Practitioner Family
DX: Z51.89 Encounter for other specified aftercare (principal); M79.2 Neuralgia and neuritis, unspecified; G89.4 Chronic pain syndrome; Z79.891 Long term (current) use of opiate analgesic

== ENCOUNTER → 2016-11-27 | Outpatient (REF) | payer OTHER ==
[~2016-11-27] MED LIST changes: -KETOROLAC 60 MG/2 ML VIAL (J1885) As Ordered ONE; -LIDOCAINE 1% SDV INJ 30 ML VIAL As Ordered ONE; -LIDOCAINE 2% INJ 100 MG/5 ML SDV (FOR ANES.) As Ordered ONE; -LR 1,000 ML IV SCH; -METOCLOPRAMIDE INJ 10MG/2ML VIAL (J2765) As Ordered ONE; -MIDAZOLAM INJ 2 MG/2 ML VIAL (J2250) As Ordered ONE; -ONDANSETRON 4MG/2ML VIAL (J2405) As Ordered ONE; -ONDANSETRON 4MG/2ML VIAL (J2405) IV PRN; -PHENYLephrine HCL 500 MCG/5 ML (100MCG/ML) SYRINGE (J2370) As Ordered ONE; -PROPOFOL 200 MG/20 ML VIAL As Ordered ONE; -ROCURONIUM BROMIDE 50 MG/5 ML VIAL As Ordered ONE; -SILVER NITRATE APPLICATOR XX ONE; -SUCCINYLCHOLINE 100 MG/5 ML SYRINGE (J0330) As Ordered ONE; -dexameTHASONE 4 MG/ML 1ML VIAL (J1100) As Ordered ONE; -ePHEDrine SULFATE 25 MG/5 ML(5MG/ML) SYRINGE As Ordered ONE; -fentaNYL 100 MCG/2 ML INJECTION (J3010) As Ordered ONE
[2016-11-27 17:03] LABS: MEAN CORPUSCULAR HGB CONC 34.8 g/dl (32.0-36.5); MEAN CORPUSCULAR VOLUME 97.5 fl (80.0-96.0); WHITE BLOOD COUNT 3.6 K/mm3 (4.0-10.0)
[2016-11-27 17:20] LABS: ALBUMIN 3.3 GM/DL (3.2-5.2); BILIRUBIN,TOTAL 0.6 MG/DL (0.2-1.0); CALCIUM LEVEL 9.3 MG/DL (8.5-10.1); CREATININE FOR GFR 1.25 MG/DL (0.55-1.02); GLOMERULAR FILTRATION RATE 48.5 (>58); TOTAL PROTEIN 6.6 GM/DL (6.4-8.2)
== END ==
LOC: M SFHCLERA 15:03
PROVIDERS: ATTEND Family Medicine
DX: R79.89 Other specified abnormal findings of blood chemistry (principal); I10 Essential (primary) hypertension; K76.0 Fatty (change of) liver, not elsewhere classified

== ENCOUNTER → 2016-12-10 | Outpatient (CLI) | payer OTHER ==
[~2016-12-10] MED LIST changes: +B2100TAB PO; +LACT10SO29 PO; +REQU2TAB3 PO; +SENN8.6T10 PO; +SPIR25TA2 PO
--- NOTE | 2016-12-10 23:36 | ECWPNPC ---
PATIENT NAME: WILLEM BALDWIN : 1965 GENDER: FEMALE VISIT DATE: 12/10/2016 DISCHARGE DATE: 12/10/16 1120 VISIT LOCKED DATE TIME: PHYSICIAN: SHANNEN PRADO RESOURCE: SHANNEN PRADO REASON FOR APPOINTMENT 1. F/U BACK HISTORY OF PRESENT ILLNESS HISTORY OF PRESENT ILLNESS: PAIN THE PATIENT DESCRIBES THE PAIN... FALL RISK SCREENING: HERE FOR F/U AFTER RECONSULT 3 MONTHS AGO . CHIEF COMPLAINT IS LOW BACK PAIN AND BILATERAL LOWER EXTREMITY PAIN.RATING PAIN VAS 7/10.REPORTED NEW ONSET OF GENERALIZED BACK SHOOTING PAIN AND SPASM.WAS USING ROBAXIN AND GABAPENTIN AND IT WAS INEFFECTIVE.STARTED TIZANIDINE 4MG PRN IN APRIL BUT THAT CAUSED FATIGUE.TOOK TRAMADOL IN PAST AND FOUND IT INEFFECTIVE.STARTED ON DILAUDID 2MG TID LAST VISIT . USES 1/2 TAB DUE TO SOME GI UPSET.STATES MEDICATION HELPS HER TO BE ABLE TO TOLERATE MORE ACTIVITY IE HOUSEWORK.RECENT DIAGNOSIS OF LIVER DISEASE.CURRENTLY TAKING 1/2 TAB. DILAUDID TWICE PER DAY PRN WITHOUT NAUSEA AND REPORTS IMPROVED PAIN CONTROL.DISCUSSED MEDICATION AND TREATMENT OPTIONS. SCREENING :NO FALLS IN THE PAST YEAR :NO FALLS IN THE PAST YEAR :NO FALLS IN THE PAST YEAR CURRENT MEDICATIONS TAKING SENNA S 8.6-50 MG TABLET 2 TABLETS PRN ORALLY BID TAKING NEBULIZER . DEVICE DIRECTED INHALED DIRECTED (DX. J41.1) TAKING NEBULIZER AIR TUBE/PLUGS . MISCELLANEOUS DIRECTED INHALED DIRECTED (J41.1) TAKING ASPIR-81 81 MG TABLET DELAYED RELEASE 1 TABLET ORALLY ONCE A DAY TAKING BLOOD GLUCOSE METER . KIT DIRECTED TO CHECK FSBS QAC TID - (DX E11.319) TAKING MONTELUKAST SODIUM 10 MG TABLET 1 TABLET IN THE EVENING ORALLY ONCE A DAY TAKING INSULIN SYRINGE/NEEDLE 28G X 1/2 MISCELLANEOUS DX: Z72.0 SUBCUTANEOUSLY BID TAKING FLONASE 50 MCG/ACT SUSPENSION 1 SPRAY IN EACH NOSTRIL NASALLY TWICE A DAY TAKING SALINE NASAL SPRAY 0.65 % SOLUTION DIRECTED NASALLY FOUR TIMES DAILY TAKING PROAIR HFA 108 (90 BASE) MCG/ACT AEROSOL SOLUTION 2 PUFFS NEEDED INHALATION EVERY 4 HRS TAKING BENTYL 10 MG CAPSULE 1 CAPSULE PRN ORALLY FOUR TIMES A DAY TAKING VITAMIN B-2 100 MG TABLET 1 TABLET WITH A MEAL ORALLY ONCE A DAY TAKING IPRATROPIUM-ALBUTEROL 0.5-2.5 (3) MG/3ML SOLUTION 3 ML PRN INHALATION EVERY 6 HRS TAKING ARNUITY ELLIPTA 200 MCG/ACT AEROSOL POWDER BREATH ACTIVATED 1 PUFF INHALATION ONCE A DAY TAKING BATH/SHOWER SEAT - MISCELLANEOUS DIRECTED DUE TO 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 R26.81) DIRECTED TAKING MAGNESIUM 400 MG CAPSULE 1 CAP ORALLY BID TAKING VITAMIN D (ERGOCALCIFEROL) 29916 UNIT CAPSULE 1 CAPSULE ORALLY WEEKLY TAKING PEN NEEDLES 31G X 6 MM MISCELLANEOUS ONE APPLICATION SUBCUTANEOUSLY DAILY E11.319 TAKING MECLIZINE HCL 25 MG TABLET 1 TABLET NEEDED ORALLY THREE TIMES DAILY TAKING CLOTRIMAZOLE 1 % CREAM 1 APPLICATION TO AFFECTED AREA ON ABDOMEN UNTIL 2 DAYS AFTER RASH CLEARS EXTERNALLY TWICE A DAY TAKING ALCOHOL PADS 70 % PAD DIRECTED DX E11.9 TO USE PRIOR TO CHECKING BLOOD GLUCOSE TID TID PRIOR TO MEALS TAKING LANCETS . MISCELLANEOUS DIRECTED TO CHECK FSBS QAC TID (DX E11.319) TAKING BLOOD GLUCOSE TEST STRIP . STRIP 1 STRIP DIRECTED IN VITRO QAC TID (DX. E11.319) TAKING LASIX 40 MG TABLET 1 TABLET ORALLY ONCE A DAY TAKING CLONAZEPAM 1 MG TABLET 1 TABLET PRN ORALLY QHS (MDD 1) TAKING ZOFRAN ODT 4 MG TABLET DISPERSIBLE 1 TABLET PRN NAUSEA ORALLY EVERY 8 HRS TAKING DILAUDID 2 MG TABLET 1 ORALLY THREE TIMES DAILY MDD3 TAKING CARVEDILOL 25 MG TABLET 1 TABLET WITH FOOD ORALLY TWICE A DAY TAKING LOSARTAN POTASSIUM 50 MG TABLET 1 TAB(S) ORALLY BID TAKING HYDRALAZINE HCL 50 MG TABLET 1 TABLET ORALLY FOUR TIMES A DAY TAKING ROLLING WALKER 1 1 ROLLING WALKER WITH SEAT AND HANDBRAKES DX R26.81 DIRECTED TAKING WELLBUTRIN XL 150 MG TABLET EXTENDED RELEASE 24 HOUR 1 TABLET IN THE MORNING ORALLY ONCE A DAY TAKING SPIRONOLACTONE 25 MG TABLET 1 TABLET ORALLY TWICE A DAY TAKING ROPINIROLE HCL 2 MG TABLET 1 TAB(S) ORALLY BID TAKING GABAPENTIN 400 MG CAPSULE 1 CAPSULE ORALLY THREE TIMES A DAY TAKING CETIRIZINE HCL 10 MG TABLET 1 TABLET NEEDED ORALLY ONCE A DAY TAKING LACTULOSE 10 GM/15ML SOLUTION 30 ML ORALLY THREE TIMES DAILY TAKING TOUJEO SOLOSTAR PENS 450 U/1.5ML PREFILLED PENS 54 UNITS IN THE MORNING SQ DAILY TAKING PROPRANOLOL HCL 20 MG TABLET 1 TABLET ORALLY TWICE A DAY NOT-TAKING MUCINEX DM MAXIMUM STRENGTH 60-1200 MG TABLET EXTENDED RELEASE 12 HOUR 1 TABLET NEEDED ORALLY TWICE A DAY NOT-TAKING OMEPRAZOLE 20MG 20MG CAPSULE 1 CAP(S) ORALLY DAILY NOT-TAKING NOVOLOG 100 UNIT/ML SOLUTION FSBS 150-200 3U, 201-250 6U, 251-300 9U, 301-350 12U, 351-400 15U, OVER 400 18U SUBCUTANEOUS PRIOR TO DINNER (MDD 18U) NOT-TAKING DUONEB 0.5-2.5 (3) MG/3ML SOLUTION 3 ML NEDED INHALATION FOUR TIMES A DAY NOT-TAKING PREDNISONE 20 MG TABLET 1 TABLET ORALLY ONCE A DAY NOT-TAKING NORCO 5-325 MG TABLET 1 TABLET NEEDED ORALLY-ER EVERY 6 HRS NOT-TAKING LEVAQUIN 750 MG TABLET 1 TABLET ORALLY ONCE A DAY NOT-TAKING AUGMENTIN 875-125 MG TABLET 1 TABLET ORALLY EVERY 12 HRS NOT-TAKING PREDNISONE 20 MG TABLET 1 TABLET ORALLY BID NOT-TAKING TRAMADOL HCL 50 MG TABLET 1/2 TABLET NEEDED ORALLY EVERY 8 HRS (MDD 3) NOT-TAKING DIFLUCAN 150 MG TABLET 1 TABLET ORALLY ONCE NOT-TAKING AUGMENTIN 875-125 MG TABLET 1 TABLET ORALLY EVERY 12 HRS NOT-TAKING TRADJENTA 5MG TABLET 1 TAB ORAL DAILY NOT-TAKING POTASSIUM CHLORIDE ER 20 MEQ TABLET EXTENDED RELEASE 1 TAB(S) ORALLY DAILY MEDICATION LIST REVIEWED AND RECONCILED WITH THE PATIENT PAST MEDICAL HISTORY DIABETES MELLITUS TYPE 2 WITHOUT COMPLICATION HYPERTENSION DEPRESSION KIDNEY STONES SCIATICA SEES ONCOLOGIST FOR LOW BLOOD PLT COUNT MILD RENAL FAILURE DUE TO MEDICATIONS ARTHRITIS CHRONIC NECK PAIN HYPOMAGNESEMIA DEPENDENT EDEMA UTI HYPOPROTEINEMIA RESTLESS LEGS GASTROESOPHAGEAL REFLUX DISEASE WITHOUT ESOPHAGITIS TOBACCO ABUSE PVC (PREMATURE VENTRICULAR CONTRACTION) HEART PALPITATIONS ENLARGED SPLEEN INFLAMMED COLON LIVER DISEASE ALLERGIES AVANDIA: RASH: ALLERGY GLUCOPHAGE: RASH: ALLERGY PYRIDIUM: BLEEDING: ALLERGY DILTIAZEM HCL: SWELLING: SIDE EFFECTS LISINOPRIL: COUGH: SIDE EFFECTS SURGICAL HISTORY C SECTION 1988 GALL BLADDER 1988 BREAST LUMP REMOVED, RIGHT 1993 ENDOMETRIAL ABLATION 1998 MASS REMOVED FROM LEFT LEG 2010 LEFT SHOULDER ROTATOR CUFF 2011 LEFT BREAST CYST REMOVAL 2011 SINUS/ DEVIATED SEPTUM 2013 ACHELIES TENDON--RIGHT 2014 BRONCHOSCOPY 2004, 2006 COLONOSCOPY/ ENDOSCOPY HEART CATHERIZATION 05/2015 D&C & BX OF UTERINE LINING 11/2016 HOSPITALIZATION/MAJOR DIAGNOSTIC PROCEDURE SURGICALY RELATED MILD RENAL FAILURE ST GO--HEART CATH 05/2015 REVIEW OF SYSTEMS CONSTITUTIONAL: ANY CHANGE IN YOUR MEDICAL CONDITION? YES, PT STATES 10/11/16-10/15/16 SHE WAS HOSPITALIZED @ [facility] FOR HIGH AMMONIA LEVELS. PT STATES SHE WAS AT HER OBGYN, B/P WAS 97/53, PT WAS REFERRED BACK TO PCP, WHO REFFERED PT TO ER, WHERE SHE WAS ADMITTED AND NEWLY DX WITH LIVER DISEASE . CHILLS NO . FEVER NO . INFECTION: DO YOU HAVE NEW INFECTIONS? NO . DO YOU HAVE HISTORY OF MRSA? NO . MUSCULOSKELETAL: ANY NEW PATTERNS OF PAIN OR NUMBNESS? YES, PT STATES R SHOULDER PAIN, ORTHOPEDICS TOLD HER SHE HAS A TORN ROTATOR CUFF, BONE SPURS. SURGERY IS PLANNED . GASTROENTEROLOGY: ANY NEW CHANGE IN BOWEL CONTROL? YES, GREEN DIARRHEA . GENITOURINARY: ANY NEW CHANGE IN BLADDER CONTROL? NO . IS THERE A CHANCE YOU COULD BE ? NO . HEMATOLOGY/LYMPH: DO YOU TAKE ANY BLOOD THINNERS? (FOR EXAMPLE- COUMADIN, PLAVIX, AGGRENOX, PLATEL, PRADAXA, OR XARELTO) NO . WHEN WAS YOUR LAST DOSE? DATE: TIME: . NEUROLOGY: HAVE YOU FALLEN IN THE PAST 6 MONTHS? NO . ANY NEW EXTREMITY NUMBNESS OR WEAKNESS? NO . CARDIOLOGY: DO YOU HAVE A PACEMAKER OR DEFIBRILLATOR? NO . RESPIRATORY: HAVE YOU BEEN SICK IN THE PAST WEEK? NO . FEVER NO . FLU LIKE SYMPTOMS? NO . COUGH NO . INTEGUMENTARY: DO YOU HAVE ANY RASHES OR OPEN SORES? NO . ALLERGIC/IMMUNO: ARE YOU ALLERGIC TO SHELLFISH OR IV DYE? NO . ANY NEW ALLERGIES? NO . PSYCHIATRIC: DO YOU HAVE THOUGHTS OF HURTING YOURSELF OR SOMEONE ELSE? NO . ARE YOU ABUSED, NEGLECTED, OR IN AN UNSAFE ENVIRONMENT? NO . ENDOCRINOLOGY: ARE YOU DIABETIC? YES . OTHER: DO YOU NEED ANY PRESCRIPTIONS? YES, PT TO DISCUSS DOSAGE WITH Elsa PRADO . IF YES, PLEASE LIST: ____ . ANY NEW PROBLEMS WITH YOUR MEDICATIONS? NO . WHEN DID YOU LAST EAT? ____ . WHEN DID YOU LAST DRINK? ____ . WHAT DID YOU LAST DRINK? ____ . NAME OF PERSON DRIVING YOU HOME? ____ . DO YOU HAVE ANY OTHER QUESTIONS OR CONCERNS NO . REVIEWED BY: PROVIDER: SHANNEN PHAM . VITAL SIGNS WT 325 LBS, HT 72 IN, BMI 44.07 INDEX, BP 113/53 MM HG, HR 75 /MIN, RR 18 /MIN, TEMP 98.3 F, OXYGEN SAT % 95%, SAFE IN ENV? (Y/N) Y, NA INITIALS AW 1046, REVIEWED BY: EM. EXAMINATION GENERAL EXAMINATION: HEENT:HEAD:, NORMOCEPHALIC, EYES:, EYES NORMAL, NOSE:, NOSE CLEAR, THROAT: NORMAL. LUNGS:LUNG SOUNDS ARE CLEAR. HEART:HEART RATE REGULAR. ABDOMEN:SOFT AND NOT TENDER, NON-DISTENDED. MUSCULOSKELETAL:*. LUMBAR SACRAL SPINEMUSCLE STRENGTH TESTING 3/5 BILATERAL LOWER EXTREMITIES. PALPATION: POSITIVE FOR PAIN OVER L/S SPINE. POSITIVE FOR PAIN OVER L/S PARASPINALS. THORACIC SPINENEGATIVE FOR PAIN WITH PALPATION OF THORACIC SPINE. NEGATIVE FOR PAIN WITH PALPATION OF THORACIC PARASPINAL. CERVICAL+ FOR PAIN WITH PALPATION OF CERVICAL SPINE. + FOR PAIN WITH PALPATION OF CERVICAL PARAASPINALS. + FOR PAIN WITH PALPATION OF TRAPEZIUS BILAT. SKIN:NORMAL, NO RASH. NEUROLOGIC EXAM:ALERT AND ORIENTED X 3, DTRS 1-2+ IN ALL 4 EXTREMITIES, DENIES UPPER EXTREMETIES SENSORY LOSS, DENIES LOWER EXTREMETIES SENSORY LOSS. DIAGNOSTIC:MRI L/S [id number]. ASSESSMENTS NEUROPATHIC PAIN - M79.2 (PRIMARY) CHRONIC PAIN SYNDROME - G89.4 CHRONIC PRESCRIPTION OPIATE USE - Z79.891 TREATMENT NEUROPATHIC PAIN DECREASE DILAUDID TABLET, 2 MG, 1/2, ORALLY, BID PRN MDD1, 30 DAY(S), 30, REFILLS 0 EVER SPINE LS [id number] PROCEDURE CODES FA211 ESTABILISHED PATIENT [facility] FACILITY CHARGE DISPOSITION & COMMUNICATION FOLLOW UP 4 WEEKS ELECTRONICALLY SIGNED BY VERO VALDERRAMA ON 12/10/2016 AT 05:05 PM EDT DISCLAIMER : THIS IS A VISIT SUMMARY EXTRACTED FROM THE [employer] CHART. IT IS NOT A COPY OF THE [employer] PROGRESS NOTE. MTDD
== END ==
LOC: M PAIN 10:40
PROVIDERS: ATTEND Nurse Practitioner Family
DX: G89.4 Chronic pain syndrome (principal); M79.2 Neuralgia and neuritis, unspecified; I10 Essential (primary) hypertension; F32.9 Major depressive disorder, single episode, unspecified; M17.0 Bilateral primary osteoarthritis of knee; M19.011 Primary osteoarthritis, right shoulder; G25.81 Restless legs syndrome; K21.9 Gastro-esophageal reflux disease without esophagitis; F17.210 Nicotine dependence, cigarettes, uncomplicated; E11.319 Type 2 diabetes mellitus with unspecified diabetic retinopathy without macular edema; J30.89 Other allergic rhinitis; K59.04 Chronic idiopathic constipation; K76.0 Fatty (change of) liver, not elsewhere classified; G43.009 Migraine without aura, not intractable, without status migrainosus; G44.209 Tension-type headache, unspecified, not intractable; J44.9 Chronic obstructive pulmonary disease, unspecified; E55.9 Vitamin D deficiency, unspecified; Z88.8 Allergy status to other drugs, medicaments and biological substances; M75.81 Other shoulder lesions, right shoulder; Z79.82 Long term (current) use of aspirin; Z79.4 Long term (current) use of insulin; Z79.899 Other long term (current) drug therapy

== ENCOUNTER 2016-12-12 11:41 | Inpatient (IN) | payer OTHER ==
[~2016-12-12] VITALS: Ht 182.9 cm; Wt 156.4 kg
[~2016-12-12 11:41] MED LIST changes: -B2100TAB PO; -COLA100C3 PO; +COLA100C5 PO; -FURO1TAB15 PO; +FURO80TA2 PO; +HYDR-3910 PO; -HYDR-4266 PO; -LACT10SO29 PO; +LACT10SO3 PO; -LACT20EL PO; -LIDO5DIS36 TD; +LIDO5DIS41 TD; -MAGN250T5 PO; +MAGN250T6 PO; -METH-107 PO; +METH1TAB40 PO; -PROA1AER INH; +PROAAER10 INH; -REQU2TAB3 PO; +SALI0.6523; -SALI0.653; -SENN8.6T10 PO; -SPIR25TA2 PO; +TRAZ50TA11 PO; -TRAZ50TA4 PO
[2016-12-12 12:48] LABS: BASO % 0.6 % (0.0-1.0); EOS # 0.1 K/mm3 (0.0-0.50); EOS % 1.6 % (0.0-3.0); LARGE UNSTAINED CELL # 0.1 K/mm3 (0.0-0.4); LARGE UNSTAINED CELL % 1.4 % (0.0-4.0); LYMPH % 25.5 % (24.0-44.0); MEAN CORPUSCULAR HEMOGLOBIN 33.8 pg (27.0-33.0); MEAN CORPUSCULAR HGB CONC 34.9 g/dl (32.0-36.5); MEAN CORPUSCULAR VOLUME 96.7 fl (80.0-96.0); MONO # 0.2 K/mm3 (0.0-0.8); NEUTROPHILS # 2.4 K/mm3 (1.8-7.7); NEUTROPHILS % 65.8 % (36.0-66.0); PLATELET COUNT, AUTOMATED 102 k/mm3 (150-450); RED CELL DISTRIBUTION WIDTH 13.6 % (11.5-14.5); WHITE BLOOD COUNT 3.6 K/mm3 (4.0-10.0)
--- NOTE | 2016-12-12 12:57 | REP ---
PA and lateral chest: Comparisons are the PA and lateral chest dated 07/03/2016 and portable chest dated 10/09/2016. There is thoracic scoliosis convex right at the thoracolumbar junction, unchanged. Lung go are clear. Cardiac size is normal. The ritchie, mediastinum, and bony thorax are unremarkable. Impression: Scoliosis, otherwise, essentially negative chest. Signed by Pedro Pablo Agarwal MD 12/12/2016 12:48 P
[2016-12-12 13:01] LABS: ALBUMIN/GLOBULIN RATIO 0.97 (1.00-1.93); BILIRUBIN,DIRECT 0.2 MG/DL (0.0-0.2); BILIRUBIN,TOTAL 0.8 MG/DL (0.2-1.0); CALCIUM LEVEL 8.8 MG/DL (8.5-10.1); CREATININE FOR GFR 1.5 MG/DL (0.55-1.02); GLOMERULAR FILTRATION RATE 39.3 (>58); POTASSIUM SERUM 4.7 MEQ/L (3.5-5.1); TOTAL PROTEIN 6.1 GM/DL (6.4-8.2)
--- NOTE | 2016-12-12 14:21 | REP ---
CT Head without contrast HISTORY: Altered mental status COMPARISON: 09/10/2012 There is no intraparenchymal hemorrhage, acute infarct, mass or midline shift. The ventricular system is normal in appearance. The cortical sulci at the vertex are dilated consistent with minimal volume loss. There is no extra cerebral collection. There is no fracture. The visualized sinuses are clear. IMPRESSION: Minimal volume loss. Signed by Jay Dueñas MD 12/12/2016 02:14 P
[2016-12-12] MEDS ORDERED: SENN1TAB10 PO (14:50)
[2016-12-12] MEDS ORDERED: REQU2TAB3 PO (14:53)
[2016-12-12] MEDS ORDERED: SPIR25TA2 PO (14:53)
[2016-12-12] MEDS ORDERED: B2100TAB PO (14:54)
[2016-12-12] MEDS ORDERED: LACT10SO29 PO (14:55)
[2016-12-12] MEDS ORDERED: FURO40TA2 PO (14:55)
[2016-12-12] MEDS ORDERED: NS 1,000 ML IV SCH (15:48)
[2016-12-12] MEDS ORDERED: GLUCAGON FOR INJ 1 MG VIAL (J1610) SC PRN (16:00)
[2016-12-12] MEDS ORDERED: ALBUTEROL 90 MCG/ACT 8GM HFA INHALER INH PRN (16:00)
[2016-12-12] MEDS ORDERED: DEXTROSE 50% 50 ML SYRINGE IV PRN (16:00)
[2016-12-12] MEDS ORDERED: IPRATROPIUM 0.5MG/ALBUTEROL 2.5MG INH SOL UD 3ML (DUONEB)(J7620) NEB PRN (16:00)
[2016-12-12] MEDS ORDERED: GLUCOSE 4 GM CHEW TABLET PO PRN (16:00)
[2016-12-12] MEDS ORDERED: FLUTICASONE PROP 0.05% NASAL SPRAY 16 GM (FLONASE) PRN (16:00)
--- NOTE | 2016-12-12 16:28 | HPEPDOC ---
General Date of Admission 12/12/16 Other Providers PCP: Woodrow Tan Attending Physician: JUANJO ZAVALETA DO Chief Complaint The patient is a 50-year-old female admitted with a reason for visit of Altered Mental Status. 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 Oates in [place] presented to the ER with a chief complaint of increased lethargy, weakness, and confusion over the last 24 hours. The patient states that she has been feeling increasingly tired during this time. She denies any fevers, chills, chest pain, shortness of breath, abdominal pain, or any diarrhea. During this time, the patient states that she has been compliant with all of her medications. She notes that she has also had a decreased appetite with some associated nausea. In the ER, lab work was significant for an ammonia level of 153. The patient will be admitted under the hospitalist service for metabolic encephalopathy secondary to hyperammonemia from underlying liver disease. Home Medications Scheduled (Toujeo Solostar) 300 Unit/Ml Inj, 50 UNIT SC QAM, (Reported) (Arnuity Ellipta) 200 Mcg/Act Inh, 200 MCG INH DAILY, (Reported) Aspirin (Aspir-81) 81 Mg Tab, 81 MG PO DAILY, (Reported) Bupropion Hcl (Bupropion HCl Xl) 150 Mg Tab, 150 MG PO DAILY, (Reported) Carvedilol (Carvedilol) 25 Mg Tab, 25 MG PO BID, (Reported) Cetirizine HCl (Cetirizine HCl) 10 Mg Tab, 10 MG PO DAILY, (Reported) Dicyclomine HCl (Dicyclomine HCl) 10 Mg Cap, 10 MG PO QID, (Reported) Furosemide (Furosemide) 40 Mg Tab, 40 MG PO DAILY, (Reported) Gabapentin (Gabapentin) 400 Mg Cap, 400 MG PO TID, (Reported) Hydralazine HCl (Hydralazine HCl) 25 Mg Tab, 50 MG PO QID, (Reported) Insulin Aspart (Novolog) 100 U/Ml Inj, 1 UNITS SC DAILY, (Reported) PER SLIDING SCALE Losartan Potassium (Losartan Potassium) 50 Mg Tab, 50 MG PO BID, (Reported) Magnesium Oxide (Magnesium Oxide 400) 400 Mg Tab, 400 MG PO DAILY, (Reported) Montelukast Sodium (Montelukast Sodium) 10 Mg Tab, 10 MG PO DAILY, (Reported) Omeprazole (Omeprazole) 20 Mg Cap, 20 MG PO DAILY, (Reported) Riboflavin (B2) 100 Mg Tab, 100 MG PO DAILY, (Reported) Ropinirole Hydrochloride (Requip) 2 Mg Tab, 2 MG PO BID, (Reported) Senna (Senna Lax) 8.6 Mg Tab, 2 TAB PO DAILY, (Reported) Spironolactone (Spironolactone) 25 Mg Tab, 25 MG PO BID, (Reported) Scheduled PRN Albuterol Sulfate (Proair Hfa) 108 Mcg/Act Aer, 2 PUFF INH Q4H PRN for WHEEZING, (Reported) Albuterol/Ipratropium (Ipratropium [place]/Albut 0.5-2.5 (3) mg/3Ml) 1 Petty Petty, 1 PETTY INH QID PRN for SHORTNESS OF BREATH, (Reported) Clonazepam (Clonazepam) 1 Mg Tab, 1 MG PO QHS PRN for SLEEP, (Reported) Fluticasone Propionate (Fluticasone Propionate) 50 Mcg/Act Spr, 1 SPRAY NA DAILY PRN for CONGESTION, (Reported) Hydromorphone HCl (Hydromorphone HCl) 2 Mg Tab, 1 MG PO TID PRN for PAIN, ( Reported) Lactulose (Lactulose) 10 Gm/15 Ml Petty, 15 ML PO Q6H PRN for CONSTIPATION, ( Reported) Ondansetron (Zofran Odt) 4 Mg Tab, 4 MG PO Q4H PRN for NAUSEA, (Reported) TAKES BEFORE DILAUDID Allergies Coded Allergies: Metformin (Verified Allergy, Intermediate, RASH, 11/05/12) Diltiazem (Verified Adverse Reaction, Intermediate, SWELLINGING IN HANDS, FEET, AND LEGS, 06/07/15) Phenazopyridine (Verified Adverse Reaction, Mild, BLEEDING, 11/05/12) Rosiglitazone (Verified Adverse Reaction, Mild, WATER RETENTION, 11/05/12) Past Medical History Medical History As noted in H&P. Surgical History section 1987. Calcium deposit resection of right breast 1993. Cholecystectomy 1993. Endometrial ablation 1998. Abscess removed from the left lower extremity 2009, 2010. Left rotator cuff arthroscopy 2010. Deviated septum with sinus surgery 2012. Oil cyst removal left breast 2012. Right Achilles tendon in surgery with reattachment of the tendon 2013. 1 cm kidney stone with extraction, with stent placement January 2015. Cardiac catheterization 2015 with no blockage. Colonoscopy/endoscopy 2016. Family History Significant Family History: No pertinent family hx Social History * Smoker: Denies Alcohol: Denies Drugs: denies Recent Travel/Sick Contacts: Denies: Recent travel, Recent sick contacts Review of Symptoms Other systems 10 point review of systems negative unless otherwise specified in HPI. Physical Examination General Exam: Positive: Alert, Cooperative, No Acute Distress, Other (morbidly obese woman lying comfortably in bed) ENT Exam: Positive: Atraumatic, Mucous membr. moist/pink Neck Exam: Negative: JVD Chest Exam: Positive: Clear to auscultation, Normal air movement Heart Exam: Positive: Rate Normal, Normal S1, Normal S2 Abdomen Exam: Positive: Soft, Negative: Tenderness Extremity Exam: Positive: Swelling (1+ pitting edema in the lower extremities bilaterally), Negative: Tenderness Psych Exam: Positive: Oriented x 3 Vital Signs Vital Signs Date Time Temp Pulse Resp B/P (MAP) Pulse Ox O2 Delivery O2 Flow Rate FiO2 12/12/16 15:06 143/70 (94) 12/12/16 14:56 68 95 12/12/16 11:42 97.3 18 Room Air Laboratory Data Labs 24H Laboratory Tests 2 12/12/16 12:19: Anion Gap 8, Glomerular Filtration Rate 39.3L, Calcium Level 8.8, Aspartate Amino Transf (AST/SGOT) 19, Alanine Aminotransferase (ALT/SGPT) 19, Alkaline Phosphatase 83, Total Bilirubin 0.8, Direct Bilirubin 0.2, Ammonia 153H, Total Protein 6.1L, Albumin 3.0L, Albumin/Globulin Ratio 0.97L, Thyroid Stimulating Hormone (TSH) 1.190 12/12/16 12:20: White Blood Count 3.6L, Red Blood Count 3.84L, Hemoglobin 13.0, Hematocrit 37.1 , Mean Corpuscular Volume 96.7H, Mean Corpuscular Hemoglobin 33.8H, Mean Corpuscular Hemoglobin Concent 34.9, Red Cell Distribution Width 13.6, Platelet Count 102L, Neutrophils (%) (Auto) 65.8, Lymphocytes (%) (Auto) 25.5, Monocytes (%) (Auto) 5.0, Eosinophils (%) (Auto) 1.6, Basophils (%) (Auto) 0.6, Neutrophils # (Auto) 2.4, Lymphocytes # (Auto) 1.0L, Monocytes # (Auto) 0.2, Eosinophils # (Auto) 0.1, Basophils # (Auto) 0.0, Large Unclassified Cells % 1.4 , Large Unclassified Cells # 0.1 12/12/16 14:33: Urine Appearance CLEAR, Urine Color YELLOW, Urine pH 5.0, Urine Specific Ira 1.005, Urine Protein NEGATIVE, Urine Glucose (UA) 3+H, Urine Ketones NEGATIVE, Urine Urobilinogen 0.2, Urine Bilirubin NEGATIVE, Urine Leukocyte Esterase NEGATIVE, Urine Blood NEGATIVE, Urine Nitrite NEGATIVE, Urine WBC (Auto ) 1, Urine RBC (Auto) 3, Urine Hyaline Casts (Auto) 0, Urine Bacteria (Auto) 1+H , Urine Squamous Epithelial Cells 4, Urine Sperm (Auto) CBC/BMP Laboratory Tests 12/12/16 12:19 12/12/16 12:20 Red Blood Count 3.84 L, Mean Corpuscular Volume 96.7 H, Mean Corpuscular Hemoglobin 33.8 H, Mean Corpuscular Hemoglobin Concent 34.9, Red Cell Distribution Width 13.6, Neutrophils (%) (Auto) 65.8, Lymphocytes (%) (Auto) 25.5, Monocytes (%) (Auto) 5.0, Eosinophils (%) (Auto) 1.6, Basophils (%) (Auto ) 0.6, Neutrophils # (Auto) 2.4, Lymphocytes # (Auto) 1.0 L, Monocytes # (Auto) 0.2, Eosinophils # (Auto) 0.1, Basophils # (Auto) 0.0 Plan / VTE VTE Prophylaxis Ordered?: Yes Plan Plan Metabolic encephalopathy 2/2 Hyperammonemia from underlying Liver Disease CT Scan of the Head with no acute findings Serum Ammonia level noted to be 153 Will continue the patient on Lactulose and add Rifaximin 550mg BID IVF Hydration We will continue to monitor the patient's Ammonia level Acute kidney injury likely 2/2 Volume Depletion, decreased PO Intake, and concomitant use of Diuretic Therapy Serum Creatinine 1.50, baseline Serum Cr ~1.0 Will hold nephrotoxins IVF Hydration We will continue to monitor the patient's BMP Insulin dependent diabetes mellitus We will continue Levemir at a decreased dose of 20 units every morning until the patient is able to eat more regularly Insulin sliding scale for additional coverage Non-Alcoholic Steatohepatitis, Hypoalbuminemia Follows with GI Dr. Oates in [facility] HTN (hypertension), stable Cont Coreg and hydralazine medical therapy Pancytopenia likely 2/2 Chronic Liver Disease Stable with no indication for transfusion Asthma, stable Continue albuterol when necessary Restless leg syndrome Continue ropinirole Chronic pain meds Continue as ordered Anxiety, depression Continue Bupropion DVT prophylaxis SCDs/TEDs This patient will be admitted under the service of Dr. Zavaleta, who will begin to follow the patient on 12/13/16 @ 7am. CASEY GAMING MD Dec 12, 2016 16:28
[2016-12-12] MEDS ORDERED: NS 1,500 ML IV SCH (16:30)
[2016-12-12] MEDS: HumaLOG INSULIN (NovoLOG) PER UNIT SC SCH ×2 (17:30→21:51)
[2016-12-12 17:55] LABS: INR 1.16
[2016-12-12 18:45] VITALS: BP 139/64
[2016-12-12] MEDS: IPRATROPIUM 0.5MG/ALBUTEROL 2.5MG INH SOL UD 3ML (DUONEB)(J7620) NEB SCH (20:00)
[2016-12-12] MEDS: GABAPENTIN 400 MG CAP PO SCH (21:51)
[2016-12-12] MEDS: rOPINIRole 1MG TAB PO SCH (21:51)
[2016-12-12] MEDS: LACTULOSE 20 GM/30 ML SYRUP UD PO SCH (21:51)
[2016-12-12] MEDS: DICYCLOMINE 10 MG CAP PO SCH (21:53)
[2016-12-12] MEDS: CARVedilol 12.5 MG TAB PO SCH (21:53)
[2016-12-12] MEDS: **hydrALAZINE** 50 MG TAB PO SCH (21:54)
[2016-12-12] MEDS: rifAXIMin 550 MG TAB (XIFAXAN) PO SCH (21:54)
[2016-12-12 22:00] VITALS: BP 142/77
[2016-12-13] MEDS: IPRATROPIUM 0.5MG/ALBUTEROL 2.5MG INH SOL UD 3ML (DUONEB)(J7620) NEB SCH ×4 (01:38→20:00)
[2016-12-13] MEDS: LACTULOSE 20 GM/30 ML SYRUP UD PO SCH ×3 (05:25→22:00)
[2016-12-13 06:00] VITALS: BP 139/65
[2016-12-13 07:01] LABS: MEAN CORPUSCULAR HEMOGLOBIN 34.1 pg (27.0-33.0); MEAN CORPUSCULAR HGB CONC 34.6 g/dl (32.0-36.5); MEAN CORPUSCULAR VOLUME 98.4 fl (80.0-96.0); RED CELL DISTRIBUTION WIDTH 13.6 % (11.5-14.5)
[2016-12-13 07:09] LABS: ALBUMIN 2.9 GM/DL (3.2-5.2); ALBUMIN/GLOBULIN RATIO 0.94 (1.00-1.93); BILIRUBIN,TOTAL 0.7 MG/DL (0.2-1.0); CALCIUM LEVEL 8.4 MG/DL (8.5-10.1); CREATININE FOR GFR 1.09 MG/DL (0.55-1.02); GLOMERULAR FILTRATION RATE 56.8 (>58); POTASSIUM SERUM 4.3 MEQ/L (3.5-5.1)
[2016-12-13 07:17] LABS: INR 1.13
[2016-12-13] MEDS ORDERED: LEVEMIR (INSULIN DETEMIR) 1 UNITS/0.01ML SC SCH (09:00)
[2016-12-13] MEDS: MAGNESIUM OXIDE 400 MG TAB (MAG-OX) PO SCH (09:25)
[2016-12-13] MEDS: CETIRIZINE (ZyrTEC) 10 MG TAB PO SCH (09:25)
[2016-12-13] MEDS: rifAXIMin 550 MG TAB (XIFAXAN) PO SCH ×2 (09:25→20:30)
[2016-12-13] MEDS: SENNA 8.6 MG TAB (SENOKOT) PO SCH (09:25)
[2016-12-13] MEDS: GABAPENTIN 400 MG CAP PO SCH ×3 (09:25→20:29)
[2016-12-13] MEDS: rOPINIRole 1MG TAB PO SCH ×2 (09:25→20:30)
[2016-12-13] MEDS: HumaLOG INSULIN (NovoLOG) PER UNIT SC SCH ×4 (09:25→20:32)
[2016-12-13] MEDS: OMEPRAZOLE 20 MG CAP PO SCH (09:26)
[2016-12-13] MEDS: DICYCLOMINE 10 MG CAP PO SCH ×4 (09:26→20:31)
[2016-12-13] MEDS: MONTELUKAST 10 MG TAB PO SCH (09:26)
[2016-12-13] MEDS: **hydrALAZINE** 50 MG TAB PO SCH ×4 (09:26→20:31)
[2016-12-13] MEDS: buPROPion **XL** TABLET 150MG (WELLBUTRIN XL) PO SCH (09:26)
[2016-12-13] MEDS: ASPIRIN 81 MG ENTERIC TAB PO SCH (09:26)
[2016-12-13] MEDS: CARVedilol 12.5 MG TAB PO SCH ×2 (09:26→20:29)
--- NOTE | 2016-12-13 11:47 | IPN ---
DATE: 12/13/2016 SUBJECTIVE: Patient seen and examined in the room today. Patient stated her ammonia issue was just recently diagnosed. Patient at that hospitalization was discharged with lactulose. Approximately 3 weeks ago her lactulose dose was adjusted by the primary care provider due to frequent bowel movements. Patient states she feels her mentation showed improvement. No overnight events reports. OBJECTIVE: VITAL SIGNS: Temperature 98.6, pulse is 70, respirations 18, blood pressure 139/65, pulse oximetry 96% in room air. GENERAL: Morbidly obese, oriented times three. HEENT: Normocephalic, atraumatic. Extraocular motors grossly intact. CARDIOVASCULAR: Positive S1 and S2, regular rate. LUNGS: Clear to auscultation bilaterally. ABDOMEN: Soft, nontender, nondistended. Bowel sounds present. No rebound, no guarding. EXTREMITIES: Trace pitting edema bilaterally. There is a surgical scar located at the left anterior alonzo from previous abscess drainage. No signs of cyanosis. LABORATORY DATA: WBC 3, hemoglobin 12.4, hematocrit 35.9, platelet count is 90. Sodium is 143, potassium 4.3, chloride is 112, carbon dioxide 22, BUN 32, creatinine 1.09, GFR is 56.8, fasting glucose 304, calcium 8.4, magnesium 2, total bilirubin is 0.7, AST 17, ALT is 18, alkaline phosphatase is 80, ammonia level is 66, total protein 6, albumin 2.9. ASSESSMENT/PLAN: 1. 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 Patient is on lactulose and rifaximine. Ammonia level has been improving. Ammonia level dropped down from 153 to 66. Patient feels she is more oriented today. Continue current management. 2. Acute on chronic kidney injury secondary to dehydration. Patient was on IV fluid support previously. Creatinine improved from 1.5 to 1.1. GFR increased from 39 to 56.8. Will continue to monitor intake and output. Patient does have a history of grade 2 diastolic heart failure. Cardiac echocardiogram was performed on 10/10/2016. Patient's diuretic is on hold. 3. Diabetes. In October, patient had an A1c of greater than 10. It showed the patient had very poor diabetic control, with just low acting insulin and patient will cover with sliding scale. Patient is on consistent carbohydrate diet. 4. Chronic thrombocytopenia. Currently patient has a platelet count of 90. No signs of active bleeding. Continue to monitor. 5. CHAMPAGNE. Patient is followed by GI specialist Dr. Oates in [place]. Patient had recent adjustment of her lactulose. 6. Hypertension. Patient has Coreg and hydralazine. Blood pressure is in the satisfactory range. 7. History of asthma. No exacerbation. Continue breathing treatments as needed. 8. Restless leg syndrome. Continue ropinirole. 9. Chronic back pain. Patient has been following with outpatient pain clinic. Continue on her regular pain regimen. 10. Depression. Continue bupropion. 11. Deep vein thrombosis (DVT) prophylaxis. The patient has thrombocytopenia. Patient is on thromboembolic deterrent stockings (TEDS), sequential compression devices (SCD). [facility]
[2016-12-13 14:00] VITALS: BP 129/66
[2016-12-13] MEDS: HYDROmorphone 2 MG TAB PO PRN (18:39)
[2016-12-13] MEDS: ONDANSETRON 4 MG ORAL DISINTEGRATING TAB (S0181) PO PRN (18:39)
[2016-12-13] MEDS: LEVEMIR (INSULIN DETEMIR) 1 UNITS/0.01ML SC SCH (20:32)
[2016-12-13 22:00] VITALS: BP 151/66
[2016-12-13] MEDS: clonazePAM 1 MG TAB PO PRN (22:58)
[2016-12-14] MEDS: IPRATROPIUM 0.5MG/ALBUTEROL 2.5MG INH SOL UD 3ML (DUONEB)(J7620) NEB SCH ×4 (01:38→22:18)
[2016-12-14 06:00] VITALS: BP 126/71
[2016-12-14] MEDS: LACTULOSE 20 GM/30 ML SYRUP UD PO SCH ×3 (06:33→20:14)
[2016-12-14 06:57] LABS: ALBUMIN 2.9 GM/DL (3.2-5.2); ALBUMIN/GLOBULIN RATIO 0.85 (1.00-1.93); ALKALINE PHOSPHATASE 76 U/L (45-117); ALT/SGPT 24 U/L (12-78); ANION GAP 8 MEQ/L (8-16); AST/SGOT 22 U/L (15-37); BILIRUBIN,TOTAL 0.7 MG/DL (0.2-1.0); BLOOD UREA NITROGEN 24 MG/DL (7-18); CALCIUM LEVEL 8.8 MG/DL (8.5-10.1); CARBON DIOXIDE LEVEL 22 MEQ/L (21-32); CHLORIDE LEVEL 111 MEQ/L (98-107); GLOMERULAR FILTRATION RATE > 60.0 (>58); GLUCOSE, FASTING 214 MG/DL (70-105); POTASSIUM SERUM 4.5 MEQ/L (3.5-5.1); SODIUM LEVEL 141 MEQ/L (136-145); TOTAL PROTEIN 6.3 GM/DL (6.4-8.2)
[2016-12-14 07:02] LABS: MEAN CORPUSCULAR HEMOGLOBIN 34.6 pg (27.0-33.0); MEAN CORPUSCULAR HGB CONC 35.8 g/dl (32.0-36.5); MEAN CORPUSCULAR VOLUME 96.7 fl (80.0-96.0); RED CELL DISTRIBUTION WIDTH 13.4 % (11.5-14.5); WHITE BLOOD COUNT 3.6 K/mm3 (4.0-10.0)
[2016-12-14] MEDS: rifAXIMin 550 MG TAB (XIFAXAN) PO SCH ×2 (08:26→20:15)
[2016-12-14] MEDS: buPROPion **XL** TABLET 150MG (WELLBUTRIN XL) PO SCH (08:27)
[2016-12-14] MEDS: OMEPRAZOLE 20 MG CAP PO SCH (08:27)
[2016-12-14] MEDS: ASPIRIN 81 MG ENTERIC TAB PO SCH (08:27)
[2016-12-14] MEDS: MONTELUKAST 10 MG TAB PO SCH (08:27)
[2016-12-14] MEDS: MAGNESIUM OXIDE 400 MG TAB (MAG-OX) PO SCH (08:27)
[2016-12-14] MEDS: rOPINIRole 1MG TAB PO SCH ×2 (08:27→20:16)
[2016-12-14] MEDS: **hydrALAZINE** 50 MG TAB PO SCH ×4 (08:28→20:15)
[2016-12-14] MEDS: CARVedilol 12.5 MG TAB PO SCH ×2 (08:28→20:16)
[2016-12-14] MEDS: GABAPENTIN 400 MG CAP PO SCH ×3 (08:28→20:16)
[2016-12-14] MEDS: CETIRIZINE (ZyrTEC) 10 MG TAB PO SCH (08:28)
[2016-12-14] MEDS: SENNA 8.6 MG TAB (SENOKOT) PO SCH (08:30)
[2016-12-14] MEDS: LEVEMIR (INSULIN DETEMIR) 1 UNITS/0.01ML SC SCH ×2 (08:31→20:15)
[2016-12-14] MEDS: HumaLOG INSULIN (NovoLOG) PER UNIT SC SCH ×4 (08:32→21:17)
[2016-12-14] MEDS: DICYCLOMINE 10 MG CAP PO SCH ×4 (08:36→20:16)
--- NOTE | 2016-12-14 12:30 | IPN ---
DATE: 12/14/2016 SUBJECTIVE: Patient seen and examined in the room today. Patient stated she has at least 6-7 small bowel movements yesterday from the lactulose. On the [employer] documentation, the patient had 3 bowel movements. The patient's lactulose was prescribed as every 8 hours. Yesterday, the patient refused one dose of the lactulose. The patient stated her mentation is improving. No overnight events reported. OBJECTIVE: VITAL SIGNS: Temperature 98.6, pulse is 70, respirations 18, blood pressure 126/71, pulse oximetry 95% in room air. GENERAL: No acute distress. Morbidly obese. Alert and oriented times three. HEENT: Normocephalic, atraumatic. Extraocular movements grossly intact. CARDIOVASCULAR: Positive S1, S2, regular rate. LUNGS: Clear to auscultation bilaterally. ABDOMEN: Soft, nontender, nondistended. Bowel sounds present. No rebound, no guarding. EXTREMITIES: Trace pitting edema bilaterally. There is a surgical scar located at the left anterior alonzo from previous abscess drainage. No signs of cyanosis. LABORATORY DATA: WBC 3.6, hemoglobin 12.3, hematocrit 34.2, platelet count is 99. Sodium is 141, potassium 4.5, chloride is 111, carbon dioxide 22, BUN 24, creatinine 0.9, GFR greater than 60, fasting glucose 214. A1c is 10.7. Calcium 8.8. Total bilirubin 0.7, AST 22, ALT 24, alkaline phosphatase 76, ammonia level is 70, total protein 6.3, albumin 2.9. ASSESSMENT/PLAN: 1. 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 Patient is on lactulose and rifaximin. There is a mild increase of ammonia level. Ammonia level is approximately 70s. Will encourage patient to be compliant with the lactulose regimen. Will continue to monitor the patient's input and output to prevent acute kidney injury (RUBY) which did occur in the past from lactulose use. 2. History of acute on chronic kidney injury secondary to dehydration. Patient was on IV fluid support previously. Patient's renal function returned to baseline. Will continue to see if lactulose and oral intake with oral fluids will cause good balance for the patient. Then patient can be discharged home if the ammonia level is improving. The patient did have a history of grade 2 diastolic heart failure. Echo was performed on 10/10/2016 and patient's diuretic is on hold. 3. Diabetes. A1c greater than 10 shows patient has very poor diabetic control. Will change the patient's long acting insulin. Patient will continue coverage with sliding scale and continue on consistent carbohydrate diet. 4. Chronic thrombocytopenia. Stable. No signs of active bleeding. Continue to monitor. 5. CHAMPAGNE. Followed by the GI specialist Dr. Oates in [place] who had a recent adjustment on her lactulose. 6. Hypertension. On Coreg and hydralazine. Blood pressure is in the satisfactory range. 7. History of asthma. No exacerbation. Continue breathing treatments as needed. 8. Restless leg syndrome. Continue on ropinirole. 9. Chronic back pain. Patient follows with outpatient therapy. Continue with pain clinic. Continue her regular pain regimen. 10. Depression. On bupropion. 11. Deep vein thrombosis (DVT) prophylaxis. On thromboembolic deterrent stockings (TEDS), sequential compression devices (SCD).
[2016-12-14] MEDS: ONDANSETRON 4 MG ORAL DISINTEGRATING TAB (S0181) PO PRN ×2 (13:58→20:14)
[2016-12-14] MEDS: HYDROmorphone 2 MG TAB PO PRN ×2 (13:59→20:17)
[2016-12-14 14:00] VITALS: BP 144/67
--- NOTE | 2016-12-14 19:09 | ECGEPIP ---
Stationary ECG Study [facility] - ED Test Date: 2016-12-12 Pat Name: WILLEM BALDWIN Department: Room: - Gender: F Slasher: PB : 1965 Requested By: JOHN Cruz Order Number: [id number] Reading MD: Kenia Gonzalez Measurements Intervals [place] Rate: 72 P: 24 SD: 140 QRS: 4 QRSD: 100 T: 17 QT: 391 QTc: 430 Interpretive Statements SINUS RHYTHM SIMILAR 10/10/16 Electronically Signed On 12-14-2016 19:09:19 EDT by Kenia Gonzalez
[2016-12-14] MEDS: clonazePAM 1 MG TAB PO PRN (20:15)
[2016-12-14 22:00] VITALS: BP 122/60
[2016-12-15] MEDS: IPRATROPIUM 0.5MG/ALBUTEROL 2.5MG INH SOL UD 3ML (DUONEB)(J7620) NEB SCH ×4 (02:00→20:00)
[2016-12-15] MEDS: LACTULOSE 20 GM/30 ML SYRUP UD PO SCH ×3 (05:34→21:14)
[2016-12-15 06:00] VITALS: BP 125/60
[2016-12-15 06:34] LABS: MEAN CORPUSCULAR HEMOGLOBIN 34.7 pg (27.0-33.0); MEAN CORPUSCULAR HGB CONC 35.5 g/dl (32.0-36.5); MEAN CORPUSCULAR VOLUME 97.7 fl (80.0-96.0); RED CELL DISTRIBUTION WIDTH 13.3 % (11.5-14.5); WHITE BLOOD COUNT 3.5 K/mm3 (4.0-10.0)
[2016-12-15 06:57] LABS: ALBUMIN 2.9 GM/DL (3.2-5.2); ALBUMIN/GLOBULIN RATIO 0.91 (1.00-1.93); BILIRUBIN,TOTAL 0.6 MG/DL (0.2-1.0); CALCIUM LEVEL 8.9 MG/DL (8.5-10.1); CREATININE FOR GFR 1.05 MG/DL (0.55-1.02); GLOMERULAR FILTRATION RATE 59.3 (>58); POTASSIUM SERUM 5.1 MEQ/L (3.5-5.1); TOTAL PROTEIN 6.1 GM/DL (6.4-8.2)
[2016-12-15] MEDS: HumaLOG INSULIN (NovoLOG) PER UNIT SC SCH ×4 (07:53→21:16)
[2016-12-15] MEDS: OMEPRAZOLE 20 MG CAP PO SCH (07:55)
[2016-12-15] MEDS: SENNA 8.6 MG TAB (SENOKOT) PO SCH (07:55)
[2016-12-15] MEDS: MONTELUKAST 10 MG TAB PO SCH (07:56)
[2016-12-15] MEDS: rOPINIRole 1MG TAB PO SCH ×2 (07:57→21:14)
[2016-12-15] MEDS: CETIRIZINE (ZyrTEC) 10 MG TAB PO SCH (07:57)
[2016-12-15] MEDS: rifAXIMin 550 MG TAB (XIFAXAN) PO SCH ×2 (07:57→21:14)
[2016-12-15] MEDS: buPROPion **XL** TABLET 150MG (WELLBUTRIN XL) PO SCH (07:57)
[2016-12-15] MEDS: ASPIRIN 81 MG ENTERIC TAB PO SCH (07:58)
[2016-12-15] MEDS: MAGNESIUM OXIDE 400 MG TAB (MAG-OX) PO SCH (07:58)
[2016-12-15] MEDS: CARVedilol 12.5 MG TAB PO SCH ×2 (07:58→21:14)
[2016-12-15] MEDS: GABAPENTIN 400 MG CAP PO SCH ×3 (07:58→21:14)
[2016-12-15] MEDS: DICYCLOMINE 10 MG CAP PO SCH ×4 (07:59→21:15)
[2016-12-15] MEDS: LEVEMIR (INSULIN DETEMIR) 1 UNITS/0.01ML SC SCH ×2 (08:01→21:17)
[2016-12-15] MEDS: **hydrALAZINE** 50 MG TAB PO SCH ×4 (08:07→21:15)
[2016-12-15] MEDS ORDERED: SODIUM CHLORIDE 0.9% 1000 ML IV ONE (10:30)
[2016-12-15 14:00] VITALS: BP 153/70
[2016-12-15] MEDS: ONDANSETRON 4 MG ORAL DISINTEGRATING TAB (S0181) PO PRN (21:14)
[2016-12-15] MEDS: HYDROmorphone 2 MG TAB PO PRN (21:16)
[2016-12-15] MEDS: HEPARIN SOD (PORCINE) 5000 UNITS/ML VIAL SQ SCH (21:17)
[2016-12-15 22:00] VITALS: BP 160/58
--- NOTE | 2016-12-15 22:23 | IPN ---
DATE: 12/15/2016 SUBJECTIVE: Patient is seen and examined in the room today. Patient denied any acute complaints or acute changes. Denies any increased swelling of the lower extremities. Denies any difficulty breathing or chest pain. The patient is eating breakfast comfortably in the room. When I reviewed the laboratory findings with the patient, especially regarding her elevated ammonia level, she became very emotional. She stated that she wanted to go home and she does not want to stay in the hospital anymore. I explained to her the importance of finding the correction regimen for her albumin control and fluid status. OBJECTIVE: VITAL SIGNS: Temperature 98.6, pulse is 72, respirations 18, blood pressure 125/60, pulse oximetry 95% in room air. GENERAL: No sign of acute distress. Morbidly obese. Alert and oriented times three. HEENT: Normocephalic, atraumatic. Extraocular movements grossly intact. CARDIOVASCULAR: Positive S1, S2, regular rate. LUNGS: Clear to auscultation bilaterally. ABDOMEN: Morbidly obese, soft, nontender, nondistended. Bowel sounds present. No rebound, no guarding. EXTREMITIES: Trace pitting edema. No signs of cyanosis. There is a surgical scar located on the left anterior alonzo, previous abscess drainage. LABORATORY DATA: WBC 3.5, hemoglobin 12.5, hematocrit 35.3, platelet count is 101. Sodium is 140, potassium 5.1, chloride is 108, carbon dioxide 27, BUN 23, creatinine 1.05, GFR is 59.3, fasting glucose 227. Calcium is 8.9, total bilirubin 0.6, AST 25, ALT 25, alkaline phosphatase 83, ammonia level is 96, total protein 6.1, albumin 2.9. ASSESSMENT/PLAN: 1. Hyperammonemia. The patient had a history of liver cirrhosis from nonalcoholic steatohepatitis (CHAMPAGNE) . Since admission, the patient has been receiving lactulose with Rifaximin. There is decreased ammonia level initially; however, the patient has continued to have worsening ammonia level in the last one to two days. One possible reason could be due to patient fluid imbalance. The patient has had multiple bowel movements. The patient has increased urinary output when the patient is not on the diuretic. We will supplement the patient with 1 liter of bolus and continue with Lactulose treatments for the patient's ammonia level. The patient does not have any sign of active infection and the patient is not hypoxic. The patient does not have any renal failure or other significant electrolyte abnormalities at this moment. 2. History of acute on chronic kidney injury secondary to dehydration. The patient was on fluid support previously, but the fluid was discontinued due to the resolution of acute kidney injury, and the patient had grade 2 diastolic heart failure. The fluid was discontinued two days ago. 3. Diabetes. The patient has shown very poor diabetic control that raises suspicion that the patient has not received proper diabetic management in the outpatient setting. Compliance may also be an issue. Currently, the patient's long-acting insulin is being adjusted. The patient is on consistent carbohydrate diet. The patient had an A1/c greater than 10, which has been significantly increased in the last few months. 4. Chronic thrombocytopenia. No sign of active bleeding. Continue to monitor. 5. Hypertension. On Coreg, hydralazine. Blood pressure is in the satisfactory range. 6. Restless leg syndrome. On ropinirole. 7. History of asthma. No sign of exacerbation and breathing comfortably on room air. 8. Chronic back pain. The patient is on chronic pain management, which the patient has been using in the past. The patient follows with outpatient pain clinic. 9. Depression. Bupropion. 10. Deep vein thrombosis (DVT) prophylaxis. The patient is on heparin.
[2016-12-16] MEDS: IPRATROPIUM 0.5MG/ALBUTEROL 2.5MG INH SOL UD 3ML (DUONEB)(J7620) NEB SCH ×4 (00:28→20:00)
[2016-12-16] MEDS: LACTULOSE 20 GM/30 ML SYRUP UD PO SCH ×5 (05:29→14:06)
[2016-12-16] MEDS: HEPARIN SOD (PORCINE) 5000 UNITS/ML VIAL SQ SCH ×3 (05:30→21:27)
[2016-12-16 06:00] VITALS: BP 137/68
[2016-12-16 07:14] LABS: MEAN CORPUSCULAR HEMOGLOBIN 35.1 pg (27.0-33.0); MEAN CORPUSCULAR HGB CONC 36.2 g/dl (32.0-36.5); MEAN CORPUSCULAR VOLUME 96.8 fl (80.0-96.0); RED CELL DISTRIBUTION WIDTH 13.3 % (11.5-14.5); WHITE BLOOD COUNT 3.4 K/mm3 (4.0-10.0)
[2016-12-16 07:19] LABS: ALBUMIN 2.9 GM/DL (3.2-5.2); ALBUMIN/GLOBULIN RATIO 0.91 (1.00-1.93); ALKALINE PHOSPHATASE 79 U/L (45-117); ALT/SGPT 26 U/L (12-78); ANION GAP 8 MEQ/L (8-16); AST/SGOT 24 U/L (15-37); BILIRUBIN,TOTAL 0.6 MG/DL (0.2-1.0); BLOOD UREA NITROGEN 22 MG/DL (7-18); CALCIUM LEVEL 8.8 MG/DL (8.5-10.1); CARBON DIOXIDE LEVEL 22 MEQ/L (21-32); CHLORIDE LEVEL 106 MEQ/L (98-107); CREATININE FOR GFR 0.93 MG/DL (0.55-1.02); GLOMERULAR FILTRATION RATE > 60.0 (>58); GLUCOSE, FASTING 230 MG/DL (70-105); POTASSIUM SERUM 4.3 MEQ/L (3.5-5.1); SODIUM LEVEL 136 MEQ/L (136-145); TOTAL PROTEIN 6.1 GM/DL (6.4-8.2)
[2016-12-16] MEDS: SENNA 8.6 MG TAB (SENOKOT) PO SCH (08:13)
[2016-12-16] MEDS: MONTELUKAST 10 MG TAB PO SCH (08:13)
[2016-12-16] MEDS: LEVEMIR (INSULIN DETEMIR) 1 UNITS/0.01ML SC SCH ×2 (08:13→21:27)
[2016-12-16] MEDS: ASPIRIN 81 MG ENTERIC TAB PO SCH (08:13)
[2016-12-16] MEDS: rOPINIRole 1MG TAB PO SCH ×2 (08:13→21:25)
[2016-12-16] MEDS: OMEPRAZOLE 20 MG CAP PO SCH (08:13)
[2016-12-16] MEDS: **hydrALAZINE** 50 MG TAB PO SCH ×4 (08:14→21:26)
[2016-12-16] MEDS: MAGNESIUM OXIDE 400 MG TAB (MAG-OX) PO SCH (08:14)
[2016-12-16] MEDS: rifAXIMin 550 MG TAB (XIFAXAN) PO SCH ×2 (08:14→21:26)
[2016-12-16] MEDS: DICYCLOMINE 10 MG CAP PO SCH ×4 (08:14→21:26)
[2016-12-16] MEDS: GABAPENTIN 400 MG CAP PO SCH ×3 (08:14→21:26)
[2016-12-16] MEDS: buPROPion **XL** TABLET 150MG (WELLBUTRIN XL) PO SCH (08:15)
[2016-12-16] MEDS: CETIRIZINE (ZyrTEC) 10 MG TAB PO SCH (08:15)
[2016-12-16] MEDS: CARVedilol 12.5 MG TAB PO SCH ×2 (08:15→21:26)
[2016-12-16] MEDS: HumaLOG INSULIN (NovoLOG) PER UNIT SC SCH ×4 (08:16→21:27)
[2016-12-16 14:00] VITALS: BP 126/60
--- NOTE | 2016-12-16 17:38 | IPN ---
DATE: 12/16/2016 The patient is seen and examined at the bedside. Chart has been reviewed. The patient continues to have elevation in ammonia level from arianna of 66, currently to 104. She currently is awake, alert, and oriented, answering questions appropriately. No lethargy. No confusion. VITAL SIGNS: Stable. Temperature 98.4, pulse 69, respiratory rate 14, blood pressure is 152/72, 97% on room air. GENERAL: The patient is awake, alert, and oriented times three, answering questions appropriately. HEENT: Anicteric sclerae. No jaundice. LUNGS: Clear to auscultation. No wheezing, rales, or rhonchi. ABDOMEN: Morbidly obese. Abdomen is soft, nontender, nondistended. Positive bowel sounds times four quadrants. No rebound or guarding. EXTREMITIES: Trace edema. No cyanosis. Left anterior alonzo surgical scar, previous abscess drainage. LABORATORY DATA: White count 3.4, hemoglobin 11.9, hematocrit 32, platelet count of 89. Sodium 136, potassium 4.3, chloride 106, bicarbonate 22, BUN 22, creatinine 0.93, glucose of 230, ammonia level of 104, albumin of 2.9. ASSESSMENT AND PLAN: This is a 50-year-old female with history of nonalcoholic steatohepatitis, cholecystectomy, (C) section, calcium deposit, resection of the right breast, endometrial ablation, abscess of the left lower extremity 2009 and 2010, kidney stones with extraction and stent placement January 2015, morbid obesity, type 2 diabetes, asthma, hypertension, restless legs, chronic lower extremity edema, liver cirrhosis secondary to nonalcoholic steatohepatitis, follows with basketball assembler, Dr. Sethi, in [place], presented with increased lethargy, weakness, confusion for 24 hours, was found to have ammonia level of 153, currently on lactulose. CURRENT ISSUES: 1. Hepatic encephalopathy, secondary to elevated ammonia level from nonalcoholic steatohepatitis, liver cirrhosis. Currently on lactulose every eight hours due to worsening ammonia levels with risk of worsening encephalopathy. No signs of gastrointestinal (GI) bleed. The patient will be started on lactulose every two hours for four doses and then resume on her four times a day dose starting in the morning. If the patient's ammonia level does not improve or the patient exhibits worsening mental state, the patient will be given lactulose every hour until ammonia level is decreased. 2. Nonalcoholic steatohepatitis causing liver cirrhosis. Outpatient management by gastroenterology. Continue with maintenance prophylaxis with rifaximin to decrease risk of infection. 3. Acute kidney injury secondary to dehydration from lactulose. Recheck a metabolic panel at a later time. She may need IV fluids. 4. Type 2 diabetes, poor diabetic control, A1c of 10, increased in the last few months, most likely secondary to compliance issues. Diabetic teaching. Continue on Levemir insulin twice a day. 5. Morbid obesity. Outpatient weight loss therapy. 6. Restless leg syndrome, chronic. 7. Hypertension, stable. 8. History of asthma. No acute symptoms.
[2016-12-16 21:30] LABS: ANION GAP 8 MEQ/L (8-16); BLOOD UREA NITROGEN 21 MG/DL (7-18); CALCIUM LEVEL 8.5 MG/DL (8.5-10.1); CARBON DIOXIDE LEVEL 20 MEQ/L (21-32); CHLORIDE LEVEL 107 MEQ/L (98-107); CREATININE FOR GFR 0.91 MG/DL (0.55-1.02); GLOMERULAR FILTRATION RATE > 60.0 (>58); GLUCOSE, FASTING 297 MG/DL (70-105); SODIUM LEVEL 135 MEQ/L (136-145)
[2016-12-16 22:00] VITALS: BP 155/69
[2016-12-17] MEDS: ONDANSETRON 4 MG ORAL DISINTEGRATING TAB (S0181) PO PRN (01:00)
[2016-12-17] MEDS: HYDROmorphone 2 MG TAB PO PRN (01:00)
[2016-12-17] MEDS: IPRATROPIUM 0.5MG/ALBUTEROL 2.5MG INH SOL UD 3ML (DUONEB)(J7620) NEB SCH ×2 (02:00→06:49)
[2016-12-17] MEDS: HEPARIN SOD (PORCINE) 5000 UNITS/ML VIAL SQ SCH (05:51)
[2016-12-17 06:00] VITALS: BP 152/70
[2016-12-17] MEDS ORDERED: LACTULOSE 20 GM/30 ML SYRUP UD PO SCH ×2 (06:00→21:00)
[2016-12-17 06:44] LABS: MEAN CORPUSCULAR HGB CONC 34.7 g/dl (32.0-36.5); RED CELL DISTRIBUTION WIDTH 13.2 % (11.5-14.5); WHITE BLOOD COUNT 3.3 K/mm3 (4.0-10.0)
[2016-12-17 06:55] LABS: ALBUMIN 2.9 GM/DL (3.2-5.2); ALBUMIN/GLOBULIN RATIO 0.97 (1.00-1.93); ALKALINE PHOSPHATASE 85 U/L (45-117); ALT/SGPT 26 U/L (12-78); ANION GAP 6 MEQ/L (8-16); AST/SGOT 27 U/L (15-37); BILIRUBIN,TOTAL 0.6 MG/DL (0.2-1.0); BLOOD UREA NITROGEN 20 MG/DL (7-18); CALCIUM LEVEL 8.5 MG/DL (8.5-10.1); CARBON DIOXIDE LEVEL 22 MEQ/L (21-32); CHLORIDE LEVEL 109 MEQ/L (98-107); CREATININE FOR GFR 0.87 MG/DL (0.55-1.02); GLOMERULAR FILTRATION RATE > 60.0 (>58); GLUCOSE, FASTING 234 MG/DL (70-105); POTASSIUM SERUM 4.3 MEQ/L (3.5-5.1); SODIUM LEVEL 137 MEQ/L (136-145); TOTAL PROTEIN 5.9 GM/DL (6.4-8.2)
[2016-12-17] MEDS ORDERED: LACT10SO3 PO (07:18)
[2016-12-17] MEDS: LACTULOSE 20 GM/30 ML SYRUP UD PO SCH ×4 (07:48→10:40)
[2016-12-17] MEDS: HumaLOG INSULIN (NovoLOG) PER UNIT SC SCH ×2 (07:49→12:10)
[2016-12-17] MEDS: OMEPRAZOLE 20 MG CAP PO SCH (08:54)
[2016-12-17] MEDS: ASPIRIN 81 MG ENTERIC TAB PO SCH (08:55)
[2016-12-17] MEDS: GABAPENTIN 400 MG CAP PO SCH (08:55)
[2016-12-17] MEDS: CARVedilol 12.5 MG TAB PO SCH (08:55)
[2016-12-17] MEDS: **hydrALAZINE** 50 MG TAB PO SCH ×2 (08:55→12:11)
[2016-12-17] MEDS: rifAXIMin 550 MG TAB (XIFAXAN) PO SCH (08:55)
[2016-12-17] MEDS: buPROPion **XL** TABLET 150MG (WELLBUTRIN XL) PO SCH (08:55)
[2016-12-17] MEDS: CETIRIZINE (ZyrTEC) 10 MG TAB PO SCH (08:55)
[2016-12-17] MEDS: MONTELUKAST 10 MG TAB PO SCH (08:55)
[2016-12-17] MEDS: rOPINIRole 1MG TAB PO SCH (08:56)
[2016-12-17] MEDS: LEVEMIR (INSULIN DETEMIR) 1 UNITS/0.01ML SC SCH (08:56)
[2016-12-17] MEDS: MAGNESIUM OXIDE 400 MG TAB (MAG-OX) PO SCH (08:56)
[2016-12-17] MEDS: DICYCLOMINE 10 MG CAP PO SCH ×2 (10:40→13:43)
[2016-12-17 12:11] VITALS: BP 152/70
--- NOTE | 2017-01-15 23:19 | DSES ---
DATE OF ADMISSION: 12/12/2016 DATE OF DISCHARGE: 12/17/2016 PRIMARY DISCHARGE DIAGNOSES: 1. Hepatic encephalopathy secondary to elevated ammonia level from nonalcoholic steatohepatitis and liver cirrhosis. 2. Nonalcoholic steatohepatitis causing liver cirrhosis. 3. Acute kidney injury secondary to dehydration from lactulose. 4. Type 2 diabetes. Poor diabetic control. A1c of 10. Morbid obesity. 5. Restless leg syndrome. 6. Hypertension. 7. History of asthma. 8. Chronic pancytopenia secondary to liver cirrhosis. DISCHARGE MEDICATIONS: - Lactulose 30 grams by mouth four times a day - ProAir HFA 2 puffs every 4 as needed - DuoNeb four times a day as needed - Ellipta 200 mcg inhaled daily - aspirin 81 mg daily - bupropion 150 mg daily - carvedilol 25 twice a day - cetirizine 10 daily - lorazepam 1 mg at bedtime - dicyclomine 10 mg four times a day - fluticasone 1 spray daily as needed - Lasix 40 mg daily - gabapentin 400 mg three times a day - hydralazine 50 mg four times a day - hydromorphone 1 mg three times a day as needed for pain - NovoLog insulin sliding scale - magnesium oxide 400 mg daily - montelukast 10 mg daily - omeprazole 20 mg daily - Zofran ODT 4 mg every 4 as needed - riboflavin B2 100 mg daily - Requip 2 mg twice a day - Senokot two tablets daily - Toujeo SoloStar 50 units subcutaneous every morning HOSPITAL COURSE: This is a 51-year-old female with history of nonalcoholic steatohepatitis, cholecystectomy, section, calcium deposit resection of the right breast, endometrial ablation, abscess of left lower extremity in 2009 and 2010. Kidney stones with extraction, stent placement in January 2015, morbid obesity, type 2 diabetes, asthma, hypertension, restless legs, chronic lower extremity edema, liver cirrhosis, nonalcoholic steatohepatitis, sees Dr. 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 The patient's primary care physician has decreased her usual dose of lactulose and she presented to the emergency room with hepatic encephalopathy secondary to elevated pneumonia level. She has a history of nonalcoholic steatohepatitis causing liver cirrhosis and was admitted for acute mental status changes over the past 24 hours. She was started on lactulose with two to three bowel movement goal daily. There are no signs of GI bleed. She was given lactulose every two hours for four doses until patient's mentation improved and ammonia level was decreased. She was continued on maintenance prophylaxis with rifaximin to decrease risk of infection. The patient has developed acute kidney injury secondary to dehydration from lactulose and was given intravenous fluids. She was kept on a consistent carbohydrate diet and was found to be in poor diabetic control with A1c of 10 in the past few months. She was continued on Levemir twice a day. The patient's symptoms resolved and she was discharged in stable condition with a four times a day dose of lactulose. CT of the head in the ER was unremarkable showing minimal volume loss. Chest x-ray on 12/12 shows scoliosis, otherwise essentially negative chest. LAB DATA ON DISCHARGE: White count 3.3, hemoglobin 11.9, hematocrit 34, platelet count 92. Sodium 137, potassium 4.3, chloride 109, bicarbonate 22, BUN 20, creatinine 0.87, glucose 234. Ammonia level of 69 with peak ammonia level of 153 on admission. IMAGING STUDIES: Chest x-ray, no active disease, scoliosis on 12/12/2016. CT of the head, minimal volume loss. Time spent on discharge: 30 minutes.
== END 2016-12-17 15:15 | disposition home or self-care (01) | DRG 279 ==
LOC: M ED 12:14 → M ED INP 15:48 → M MS5PR 18:33
PROVIDERS: ADMIT Internal Medicine; ATTEND General Practice
DX: K72.90 Hepatic failure, unspecified without coma (principal); N17.9 Acute kidney failure, unspecified; D61.818 Other pancytopenia; Z68.42 Body mass index [BMI] 45.0-49.9, adult; D69.6 Thrombocytopenia, unspecified; E66.01 Morbid (severe) obesity due to excess calories; K75.81 Nonalcoholic steatohepatitis (NASH); J45.909 Unspecified asthma, uncomplicated; Z79.899 Other long term (current) drug therapy; Z79.82 Long term (current) use of aspirin; E11.9 Type 2 diabetes mellitus without complications; Z79.4 Long term (current) use of insulin; G25.81 Restless legs syndrome; E86.0 Dehydration; Z88.8 Allergy status to other drugs, medicaments and biological substances; F41.9 Anxiety disorder, unspecified; F32.9 Major depressive disorder, single episode, unspecified; N18.9 Chronic kidney disease, unspecified; I12.9 Hypertensive chronic kidney disease with stage 1 through stage 4 chronic kidney disease, or unspecified chronic kidney disease; M54.5 Low back pain; K74.60 Unspecified cirrhosis of liver

== ENCOUNTER → 2016-12-24 | Outpatient (REF) | payer OTHER ==
[~2016-12-24] MED LIST changes: +B2100TAB PO; +COLA100C3 PO; -COLA100C5 PO; +FURO1TAB15 PO; -FURO80TA2 PO; -HYDR-3910 PO; +HYDR-4266 PO; +LACT10SO29 PO; -LACT10SO3 PO; +LACT20EL PO; +LIDO5DIS36 TD; -LIDO5DIS41 TD; +MAGN250T5 PO; -MAGN250T6 PO; +METH-107 PO; -METH1TAB40 PO; +PROA1AER INH; -PROAAER10 INH; +REQU2TAB3 PO; -SALI0.6523; +SALI0.653; +SENN8.6T10 PO; +SPIR25TA2 PO; -TRAZ50TA11 PO; +TRAZ50TA4 PO
[2016-12-24 12:44] LABS: INR 1.04
[2016-12-24 12:45] LABS: BASO % 0.7 % (0.0-1.0); EOS # 0.1 K/mm3 (0.0-0.50); EOS % 2.9 % (0.0-3.0); LARGE UNSTAINED CELL % 1.3 % (0.0-4.0); LYMPH % 31.7 % (24.0-44.0); MEAN CORPUSCULAR HEMOGLOBIN 34.3 pg (27.0-33.0); MEAN CORPUSCULAR HGB CONC 35.1 g/dl (32.0-36.5); MEAN CORPUSCULAR VOLUME 97.8 fl (80.0-96.0); MONO # 0.2 K/mm3 (0.0-0.8); MONO % 4.6 % (0.0-5.0); NEUTROPHILS # 1.9 K/mm3 (1.8-7.7); NEUTROPHILS % 58.9 % (36.0-66.0); PLATELET COUNT, AUTOMATED 109 k/mm3 (150-450); RED CELL DISTRIBUTION WIDTH 13.5 % (11.5-14.5); WHITE BLOOD COUNT 3.2 K/mm3 (4.0-10.0)
[2016-12-24 13:35] LABS: ALBUMIN 3.2 GM/DL (3.2-5.2); ALBUMIN/GLOBULIN RATIO 1.03 (1.00-1.93); BILIRUBIN,TOTAL 0.6 MG/DL (0.2-1.0); CALCIUM LEVEL 8.6 MG/DL (8.5-10.1); CREATININE FOR GFR 1.09 MG/DL (0.55-1.02); GLOMERULAR FILTRATION RATE 56.8 (>58); POTASSIUM SERUM 4.3 MEQ/L (3.5-5.1); TOTAL PROTEIN 6.3 GM/DL (6.4-8.2)
== END ==
LOC: M SFHCLERA 11:17
PROVIDERS: ATTEND Family Medicine
DX: K75.81 Nonalcoholic steatohepatitis (NASH) (principal)

== ENCOUNTER → 2016-12-25 | Outpatient (CLI) | payer OTHER ==
--- NOTE | 2016-12-26 08:32 | REP ---
Clinical: History of cirrhosis and hepatic splenomegaly. Comparison: 10/10/2016. Technique: Real time chester scale ultrasound examination using curved array transducer. Findings: The liver demonstrates hepatomegaly and increased parenchymal echo texture without focal hepatic lesion identified. The pancreas is incompletely evaluated due to interposed bowel gas. The spleen is mildly enlarged otherwise normal in contour and echogenicity without focal splenic lesion identified. The patient is status post cholecystectomy with no biliary ductal dilatation appreciated. Common bile duct measures 4.3 mm diameter. The bilateral kidneys are normal in reniform shape without hydronephrosis or obvious abnormality. The bladder is unremarkable and bilateral ureteral jets are identified. Bladder measures 4.0 x 0.5 x 10.3 cm. No ascites. Liver measures 18 cm in craniocaudal length. Spleen measures 13.3 cm in craniocaudal length. Right kidney measures 13.0 x 7.2 x 5.8 cm. Left kidney measures 13.2 x 6.3 x 5.5 cm. Impression: 1. Evidence to suggest hepatocellular disease and hepatosplenomegaly without focal hepatic or splenic lesion identified. Signed by Edward Schmidt MD 12/26/2016 08:23 A
== END ==
LOC: M LRY 08:32
PROVIDERS: ATTEND Internal Medicine Gastroenterology
DX: K74.60 Unspecified cirrhosis of liver (principal)

== ENCOUNTER 2017-01-28 23:09 | Emergency (ER) | payer OTHER ==
[~2017-01-28] VITALS: Ht 182.9 cm; Wt 162.8 kg
[~2017-01-28 23:09] MED LIST changes: -COLA100C3 PO; +COLA100C5 PO; -FURO1TAB15 PO; +FURO80TA2 PO; +HYDR-3910 PO; -HYDR-4266 PO; +LACT10SO3 PO; -LACT20EL PO; -LIDO5DIS36 TD; +LIDO5DIS41 TD; -MAGN250T5 PO; +MAGN250T6 PO; -METH-107 PO; +METH1TAB40 PO; -PROA1AER INH; +PROAAER10 INH; +SALI0.6523; -SALI0.653; +SENN1TAB10 PO; -SENN8.6T10 PO; +TRAZ50TA11 PO; -TRAZ50TA4 PO
[2017-01-28 23:45] LABS: BASO % 0.7 % (0.0-1.0); EOS # 0.1 K/mm3 (0.0-0.50); EOS % 2.7 % (0.0-3.0); LARGE UNSTAINED CELL % 1.1 % (0.0-4.0); LYMPH # 1.2 K/mm3 (1.5-4.5); MEAN CORPUSCULAR HEMOGLOBIN 34.5 pg (27.0-33.0); MEAN CORPUSCULAR HGB CONC 35.1 g/dl (32.0-36.5); MEAN CORPUSCULAR VOLUME 98.3 fl (80.0-96.0); MONO # 0.2 K/mm3 (0.0-0.8); MONO % 6.3 % (0.0-5.0); NEUTROPHILS # 1.6 K/mm3 (1.8-7.7); NEUTROPHILS % 51.2 % (36.0-66.0); RED CELL DISTRIBUTION WIDTH 13.5 % (11.5-14.5); WHITE BLOOD COUNT 3.1 K/mm3 (4.0-10.0)
[2017-01-28 23:51] LABS: INR 1.07
[2017-01-29] MEDS ORDERED: ASPIRIN 325 MG TAB PO ONE
[2017-01-29 00:06] LABS: ALBUMIN 3.3 GM/DL (3.2-5.2); ALBUMIN/GLOBULIN RATIO 1.03 (1.00-1.93); ALKALINE PHOSPHATASE 86 U/L (45-117); ALT/SGPT 18 U/L (12-78); ANION GAP 7 MEQ/L (8-16); AST/SGOT 17 U/L (15-37); BILIRUBIN,DIRECT 0.3 MG/DL (0.0-0.2); BILIRUBIN,TOTAL 0.8 MG/DL (0.2-1.0); BLOOD UREA NITROGEN 20 MG/DL (7-18); CALCIUM LEVEL 8.5 MG/DL (8.5-10.1); CARBON DIOXIDE LEVEL 26 MEQ/L (21-32); CHLORIDE LEVEL 111 MEQ/L (98-107); CREATININE FOR GFR 0.87 MG/DL (0.55-1.02); GLOMERULAR FILTRATION RATE > 60.0 (>51); GLUCOSE, FASTING 165 MG/DL (70-105); POTASSIUM SERUM 3.6 MEQ/L (3.5-5.1); SODIUM LEVEL 144 MEQ/L (136-145); TOTAL PROTEIN 6.5 GM/DL (6.4-8.2)
[2017-01-29 00:10] LABS: PLATELET COUNT, AUTOMATED 91 k/mm3 (150-450)
--- NOTE | 2017-01-29 01:13 | REP ---
Clinical: Chest pain . Comparison: 12/12/2016 . Findings: The mediastinum and cardiac silhouette are stable and within normal limits for portable technique. The lung go are clear without acute consolidation, effusion, or pneumothorax. Skeletal structures are intact. Impression: No acute cardiopulmonary process appreciated. Signed by Edward Schmidt MD 01/29/2017 01:05 A
--- NOTE | 2017-01-29 04:00 | REPUSA ---
CLINICAL HISTORY: Edema. COMMENTS: Real time sonography with duplex doppler of the extremities bilaterally was performed with attention to the major deep venous structures. Evaluation reveals the common femoral, superficial femoral and popliteal veins bilaterally to be comp letely compressible without intraluminal thrombus. There is normal spontaneous phasic flow and augmen tation in all deep veins. The greater saphenous/common femoral vein junctions are patent bilaterally. IMPRESSION: No evidence of DVT in the lower extremities bilaterally. Thank you for your kind referral of this patient.
[2017-01-29] MEDS ORDERED: LACTULOSE 20 GM/30 ML SYRUP UD PO ONE (04:15)
[2017-01-29 04:47] VITALS: BP 175/77
--- NOTE | 2017-01-29 11:25 | ECGEPIP ---
Stationary ECG Study [facility] - ED Test Date: 2017-01-29 Pat Name: WILLEM BALDWIN Department: Room: - Gender: F Data Support Analyst: : 1965 Requested By: NATAN LOTT Order Number: [id number] Reading MD: Kenia Gonzalez Measurements Intervals [place] Rate: 68 P: 27 TN: 149 QRS: 6 QRSD: 102 T: 29 QT: 396 QTc: 424 Interpretive Statements SINUS RHYTHM NSTTW ABNORMALITY Electronically Signed On 01-29-2017 11:25:14 EDT by Kenia Gonzalez
--- NOTE | 2017-01-29 11:26 | ECGEPIP ---
Stationary ECG Study [facility] - ED Test Date: 2017-01-28 Pat Name: WILLEM BALDWIN Department: Room: - Gender: F Theology Professor: mitchell : 1965 Requested By: NATAN LOTT Order Number: [id number] Reading MD: Kenia Gonzalez Measurements Intervals [place] Rate: 71 P: 38 FL: 177 QRS: 1 QRSD: 102 T: 21 QT: 395 QTc: 430 Interpretive Statements SINUS RHYTHM NSTTW ABNORMALITY SIMILAR 01/29/17 3:20 Electronically Signed On 01-29-2017 11:26:23 EDT by Kenia Gonzalez
== END 2017-01-29 05:03 | disposition home or self-care (01) ==
LOC: M ED 23:09
DX: R07.89 Other chest pain (principal); E72.20 Disorder of urea cycle metabolism, unspecified; I10 Essential (primary) hypertension; E11.9 Type 2 diabetes mellitus without complications; K21.9 Gastro-esophageal reflux disease without esophagitis; J44.9 Chronic obstructive pulmonary disease, unspecified; K74.60 Unspecified cirrhosis of liver; Z90.49 Acquired absence of other specified parts of digestive tract; Z87.891 Personal history of nicotine dependence; Z79.4 Long term (current) use of insulin; Z79.82 Long term (current) use of aspirin; Z79.899 Other long term (current) drug therapy

== ENCOUNTER 2017-02-09 15:16 | Inpatient (IN) | payer OTHER ==
[~2017-02-09] VITALS: Ht 182.9 cm; Wt 179.0 kg
[~2017-02-09 15:16] MED LIST changes: -EFFE37.527 PO; -FERR1TAB8 PO; -GABA-282 PO; -GABA600T PO; -HYDR-3911 PO; -HYDR50CA2 PO; -LASI40TA PO; -MECL-68 PO; -MIRA0.12 PO; -NYST10PW TOP; -NYST1POW9 TOP; -OXYC-517 PO; -OXYC10TA12 PO
[2017-02-09] MEDS ORDERED: XIFA550T PO (15:33)
[2017-02-09] MEDS: NS 1,000 ML IV SCH ×2 (17:27→20:25)
[2017-02-09 17:28] LABS: INR 1.12
[2017-02-09] MEDS ORDERED: oxyCODONE 5MG TAB PO ONE (17:30)
--- NOTE | 2017-02-09 18:02 | REP ---
Chest one-view HISTORY: Liver failure Comparison: 01/29/2017 The lungs are clear. The heart is normal in size. The pulmonary vasculature is normal in appearance. Impression: No acute disease. Signed by Jay Dueñas MD 02/09/2017 05:54 P
[2017-02-09] MEDS ORDERED: SOD POLYSTYRENE SULFONATE SUSP 15 GM/60 ML UD PO ONE ×2 (18:15→20:30)
[2017-02-09] MEDS ORDERED: LACTULOSE 20 GM/30 ML SYRUP UD PO ONE (18:15)
[2017-02-09] MEDS ORDERED: SENN8.6T7 PO (18:34)
[2017-02-09] MEDS ORDERED: SALI0.6523 (18:34)
[2017-02-09] MEDS ORDERED: LOSA50TA20 PO (18:34)
[2017-02-09] MEDS ORDERED: LACT10SO3 PO (18:34)
[2017-02-09] MEDS ORDERED: ALBUTEROL 90 MCG/ACT 8GM HFA INHALER INH PRN (19:15)
[2017-02-09 19:42] LABS: CALCIUM LEVEL 8.5 MG/DL (8.5-10.1); CREATININE FOR GFR 1.36 MG/DL (0.55-1.02); GLOMERULAR FILTRATION RATE 43.8 (>51)
[2017-02-09 19:44] LABS: POTASSIUM SERUM 5.3 MEQ/L (3.5-5.1)
[2017-02-09] MEDS: ONDANSETRON 4 MG ORAL DISINTEGRATING TAB (S0181) PO PRN (20:23)
[2017-02-09] MEDS: **hydrALAZINE HCL** 25 MG TAB PO SCH (20:23)
[2017-02-09] MEDS: HYDROmorphone 2 MG TAB PO PRN (20:25)
[2017-02-09] MEDS ORDERED: LACTULOSE 20 GM/30 ML SYRUP UD PO SCH (21:00)
[2017-02-09] MEDS ORDERED: LOSARTAN 50 MG TAB PO SCH (21:00)
--- NOTE | 2017-02-09 21:46 | HPE ---
DATE OF ADMISSION: 02/09/2017 CHIEF COMPLAINT: 51-year-old female coming in complaining of dizziness, being tired and poor appetite, along with lower quadrant abdominal discomfort. HPI:The patient was recently in the hospital in December of this year due to altered mentation, encephalopathy secondary to hyper ammonia level from nonalcoholic steatohepatitis (CHAMPAGNE) with comorbidities of diabetes, asthma, hypertension, restless leg syndrome, chronic lower extremity edema, morbid obesity, liver cirrhosis. Followed by Dr. Oates in [place], who today presents complaining of dizziness, fatigue, poor appetite, along with increase in 20 pounds with lower quadrant abdominal pain/discomfort. The patient also mentioned that she had decreased urine output and increased bowel movements, five to six. Surprisingly , her ammonia level has increased to 167 with clear mentation. The patient is alert and oriented times three. The patient denies any fever, chills, cough, sputum production, abdominal pain other than lower quadrant pain. The patient normally has three bowel movements per day, but currently has five to six. The patient was recently started on Zoloft. In the emergency room, again, the patient was noted to have elevated ammonia level of 167, last ammonia level was 01/29/2017, which was 64. Her liver functions are normal at this time. INR is within normal as well. She does have chronic thrombocytopenia and chronic anemia and chronic leukopenia, most likely secondary due to her liver disease from CHAMPAGNE. REVIEW OF SYSTEMS: Ten point review of systems is negative other than those described in history of present illness. PAST MEDICAL HISTORY: Significant for: 1. Asthma. 2. Type 2 diabetes. 3. Hypertension. 4. Restless leg syndrome. 5. Chronic lower extremity edema. 6. Morbid obesity. 7. Nonalcoholic steatohepatitis. 8. Liver cirrhosis. Follows with Dr. Oates in [place]. 9. Hypertension. 10. Pancytopenia. 11. Leukopenia. 12. Anemia. 13. Insomnia. 14. Chronic pain. 15. Gastroesophageal reflux disease (GERD). SURGICAL HISTORY: Includes: 1. section. 2. Calcium deposit resection of the right breast. 3. Cholecystectomy. 4. Endometrial ablation. 5. Abscess removed from the left lower extremity. 6. Left rotator cuff arthroscopy. 7. Deviated septum with sinus surgery. 8. Oil cyst removal from the left breast. 9. Right Achilles tendon surgery with reattachment of tendon. 10. 1 cm kidney stone extraction with stent placement. 11. Cardiac catheterization but not blockage. 12. Colonoscopy. 13. Endoscopy. ALLERGIES: METFORMIN, DILTIAZEM, PHENAZOPYRIDINE, ROSIGLITAZONE. SOCIAL HISTORY: The patient denies smoking, drinking or drug abuse. FAMILY MEDICAL HISTORY: Noncontributory at this time. MEDICATIONS: From home are as follows: - albuterol two puffs every 4 hours as needed for wheezing - ipratropium bromide inhalation four times a day as needed for shortness of breath - Ellipta 2 mcg once daily - aspirin 81 mg daily - bupropion 150 mg by mouth daily - carvedilol 25 mg by mouth twice a day - cetirizine 10 mg by mouth daily - clonazepam 1 mg at night as needed for sleep - dicyclomine 10 mg by mouth four times a day - Senna 8.6/50 mg two tablets by mouth twice a day - fluticasone nasal spray daily as needed - furosemide 40 mg by mouth daily - gabapentin 400 mg by mouth three times a day - hydralazine 50 mg by mouth four times a day - hydromorphone 1 mg three times a day as needed for pain - sliding scale before meals - lactulose 30 mL by mouth three times a day - losartan 50 mg by mouth twice a day - magnesium oxide 400 mg by mouth daily - montelukast 10 mg by mouth daily - omeprazole 20 mg by mouth daily - Zofran as needed - B2 100 mg by mouth daily - Rifaximin 550 mg by mouth twice a day - Requip 2 mg by mouth twice a day - nasal saline four times a day as needed - Toujeo 54 units subcutaneously at night PHYSICAL EXAMINATION: VITAL SIGNS: Temperature initially was 98.1, heart rate 75, respiratory rate 16 , blood pressure 234/110, saturating 96% on room air. Currently saturating 96% on room air. Blood pressure is 149/69, heart rate of 62, respiratory rate of 16. HEENT: Normocephalic. No trauma. Inspection of the eyes, nose and throat is normal. Pupils equal, round, and reactive to light and accommodation. Mucosa is moist. NECK: Supple. No tracheal deviation. CARDIAC: S1, S2. Regular rate and rhythm. Pulses present. LUNGS: Equal entry. Did not hear any wheezes, rales or rhonchi. ABDOMEN: Morbid obesity. No significant fluid shift noted. Tenderness in lower quadrant bilaterally but no guarding or rigidity. The patient is morbidly obese. EXTREMITIES: Lower extremities with no significant pitting edema, less than 1+, but she is morbidly obese. Old surgical scar on the left leg. Capillary refill present in all four extremities. SKIN: Intact. Warm to touch. Afebrile. NEUROLOGIC: The patient is currently awake, alert, oriented times three. Cranial nerves grossly intact. Motor and sensory is intact. Normal mood and affect for current situation. The patient was able to ambulate well to the restroom and have a bowel movement without any difficulty. Again, the patient's mentation is clear, even with the ammonia level of 167. DIAGNOSTICS: The patient had WBC 2.8, hemoglobin and hematocrit is 10.7 and 31.9, platelet count is 81, which is not significantly changed from January of this year. Complete metabolic profile done earlier today showed a potassium of 5.6, chloride 112, carbon dioxide 19, BUN of 32, creatinine 1.30, glucose is 221, calcium is 8.3. Normal liver function tests. Total protein is 6 and albumin is 3.1. Otherwise complete metabolic profile is within normal. Ammonia level today is 167, which is increased from 64 in January of this year. Repeat basic metabolic profile around 3:00 showed a potassium of 5.3, chloride 111, creatinine 1.36, glucose 153, calcium level normalized at this time. We will get a repeat basic metabolic profile to evaluate for the hyperkalemia. The patient also had a chest x-ray done, which showed no acute disease, as per radiology. ASSESSMENT AND PLAN: This is a 51-year-old female with a significant past medical history of nonalcoholic steatohepatitis (CHAMPAGNE), cirrhotic disease, who has chronic elevated ammonia level and follows with Dr. Oates in [place] for gastroenterology with comorbidities of type 2 diabetes, hypertension, restless leg syndrome, chronic lower extremity edema, morbid obesity, CHAMPAGNE, liver cirrhosis, chronic pain, anxiety, insomnia, gastroesophageal reflux disease (GERD), who presented complaining of dizziness, tiredness, and poor appetite, noted to have elevated ammonia level but clear mentation. 1. Abdominal discomfort in lower quadrants with worsening kidney function with lower quadrant pain with decreased urination, elevated ammonia level. At this time, we will provide her with gentle normal saline and try to avoid third spacing if possible. Further evaluate with a CT of the abdomen and pelvis without contrast, bladder scan, and straight catheterization if necessary. The patient's liver functions are within normal. INR is within normal at this time. The patient's ammonia level is elevated but mentation is clear. Therefore, at this time, we will judiciously rehydrate with IV fluid. In addition, continue lactulose and rifampin. We will increase the Lactulose to four times a day, in addition utilize Kayexalate to help with the hyperkalemia, along with the IV fluid and monitor basic metabolic panel (BMP) as well. GI consultation as necessary. 2. Renal insufficiency, most likely secondary to due to volume depletion from frequent bowel movements, but again the patient has clear mentation and most likely requires medication for removal of the ammonia. Judicious IV fluid. Hold renal toxic medications for now, such as Lasix. Frequent BMP monitoring. 3. Insulin-dependent diabetes. We will convert Toujeo to Levemir and in addition place her on fingerstick monitoring, along with aspirin and gabapentin to be resumed. 4. CHAMPAGNE, nonalcoholic steatohepatitis with hypoalbuminemia, leukopenia, anemia, thrombocytopenia. The patient is to followup with Dr. Oates in [place] as an outpatient. 5. Hypertension. Resume Coreg, hydralazine, and losartan with parameters. 6. Pancytopenia, anemia, leukocytopenia. Most likely secondary due to liver disease. Again, stable. No need for any transfusion at this time. Please followup with Dr. Oates in [place]. 7. Asthma, stable. Respiratory treatment as needed. Montelukast. 8. Restless leg syndrome. Continue ropinirole. 9. Chronic pain. Resume home medications, including hydromorphone. 10. Anxiety. Continue home regimen. 11. Insomnia. Clonazepam as needed. 12. Gastroesophageal reflux disease (GERD). Continue omeprazole. 13. Deep vein thrombosis (DVT) prophylaxis. [facility]
--- NOTE | 2017-02-09 22:10 | REPUSA ---
CLINICAL HISTORY: Lower quadrant pain. TECHNIQUE: CT abdomen and pelvis without contrast. Total DLP 2142.4 mGy*cm COMPARISON: October 09, 2016. CT ABDOMEN WITHOUT CONTRAST: Lung bases: No lung base infiltrate or effusion. Liver: 18.4 cm length. No intrahepatic ductal dilation. Gallbladder: Cholecystectomy. Pancreas: No pancreatic duct dilation. Bowel loops: Nondistended. Spleen: 14.4 cm splenomegaly. Adrenals: Normal size. Right kidney: No stones or hydronephrosis. Vascular calcifications noted. Left kidney: No stones or hydronephrosis. Aorta: Normal caliber. Peritoneum: No free air. Anterior abdominal wall: Small fatty umbilical hernia. Lumbar spine: Degenerative spondylotic changes with vacuum phenomenon at multiple levels. CT PELVIS WITHOUT CONTRAST: Colon: Nondistended. There is mild edema adjacent to the hepatic flexure on axial images 54-60, of un certain etiology. Bladder: Contracted. Pelvic organs: Unremarkable. Peritoneum: Mild free fluid. Skeleton: No acute findings. IMPRESSION: 1. Nonspecific edema in the right upper quadrant adjacent to the hepatic flexure of the colon, which may potentially represent a region of diverticulitis or other mild bowel inflammatory process. If fur ther evaluation is clinically required, it may be necessary to perform the exam with full enteric PO and IV contrast. 2. Stable appearance of mild hepatosplenomegaly. 3. Stable appearance of fatty umbilical hernia
[2017-02-09] MEDS: MORPHINE 2 MG/ML 1ML SYRINGE IV PRN (22:55)
[2017-02-09] MEDS: LACTULOSE 20 GM/30 ML SYRUP UD PO SCH (23:07)
[2017-02-09] MEDS: CARVedilol 12.5 MG TAB PO SCH (23:08)
[2017-02-09] MEDS: LEVEMIR (INSULIN DETEMIR) 1 UNITS/0.01ML SC SCH (23:09)
[2017-02-09 23:56] LABS: CALCIUM LEVEL 8.6 MG/DL (8.5-10.1); CREATININE FOR GFR 1.37 MG/DL (0.55-1.02); GLOMERULAR FILTRATION RATE 43.4 (>51); POTASSIUM SERUM 4.9 MEQ/L (3.5-5.1)
[2017-02-10] MEDS: MORPHINE 2 MG/ML 1ML SYRINGE IV PRN ×5 (00:52→18:40)
[2017-02-10] MEDS: CIPROFLOXACIN 400 MG in APPROPRIATE DILUENT 1 EA IV SCH ×3 (01:10→23:36)
[2017-02-10] MEDS: GABAPENTIN 400 MG CAP PO SCH ×4 (01:45→21:17)
[2017-02-10] MEDS: rifAXIMin 550 MG TAB (XIFAXAN) PO SCH ×3 (01:46→23:24)
[2017-02-10] MEDS: rOPINIRole 1MG TAB PO SCH ×3 (01:46→21:17)
[2017-02-10] MEDS: metroNIDAZOLE 500 MG in APPROPRIATE DILUENT 1 EA IV SCH ×3 (02:47→16:14)
[2017-02-10] MEDS: NS 1,000 ML IV SCH ×3 (03:15→16:14)
[2017-02-10] MEDS ORDERED: HumaLOG INSULIN (NovoLOG) PER UNIT SC SCH (07:30)
[2017-02-10 08:00] VITALS: BP 138/68
[2017-02-10] MEDS ORDERED: GLUCAGON FOR INJ 1 MG VIAL (J1610) SC PRN (08:30)
[2017-02-10] MEDS ORDERED: GLUCOSE 4 GM CHEW TABLET PO PRN (08:30)
[2017-02-10] MEDS ORDERED: DEXTROSE 50% 50 ML SYRINGE IV PRN (08:30)
[2017-02-10 08:40] LABS: MEAN CORPUSCULAR HEMOGLOBIN 34.2 pg (27.0-33.0); MEAN CORPUSCULAR HGB CONC 33.6 g/dl (32.0-36.5); MEAN CORPUSCULAR VOLUME 101.6 fl (80.0-96.0); RED CELL DISTRIBUTION WIDTH 13.8 % (11.5-14.5); WHITE BLOOD COUNT 2.8 K/mm3 (4.0-10.0)
[2017-02-10] MEDS: CETIRIZINE (ZyrTEC) 10 MG TAB PO SCH (09:00)
[2017-02-10] MEDS: OMEPRAZOLE 20 MG CAP PO SCH (09:00)
[2017-02-10 09:02] LABS: ALBUMIN 3.1 GM/DL (3.2-5.2); ALBUMIN/GLOBULIN RATIO 1.11 (1.00-1.93); BILIRUBIN,TOTAL 0.5 MG/DL (0.2-1.0); CALCIUM LEVEL 7.6 MG/DL (8.5-10.1); CREATININE FOR GFR 1.13 MG/DL (0.55-1.02); GLOMERULAR FILTRATION RATE 54.3 (>51); MAGNESIUM LEVEL 2.2 MG/DL (1.8-2.4); POTASSIUM SERUM 4.3 MEQ/L (3.5-5.1); TOTAL PROTEIN 5.9 GM/DL (6.4-8.2)
[2017-02-10] MEDS: MAGNESIUM OXIDE 400 MG TAB (MAG-OX) PO SCH (09:25)
[2017-02-10] MEDS: ASPIRIN 81 MG ENTERIC TAB PO SCH (09:25)
[2017-02-10] MEDS: HumaLOG INSULIN (NovoLOG) PER UNIT SC SCH ×3 (09:25→17:30)
[2017-02-10] MEDS: buPROPion **XL** TABLET 150MG (WELLBUTRIN XL) PO SCH (09:26)
[2017-02-10] MEDS: LACTULOSE 20 GM/30 ML SYRUP UD PO SCH ×4 (09:26→21:16)
[2017-02-10] MEDS: **hydrALAZINE HCL** 25 MG TAB PO SCH ×4 (09:26→21:18)
[2017-02-10] MEDS: MONTELUKAST 10 MG TAB PO SCH (09:26)
[2017-02-10] MEDS: CARVedilol 12.5 MG TAB PO SCH ×2 (09:27→21:19)
[2017-02-10] MEDS: HYDROmorphone 2 MG TAB PO PRN ×3 (09:33→21:20)
--- NOTE | 2017-02-10 10:39 | ECGEPIP ---
Stationary ECG Study [facility] - ED Test Date: 2017-02-09 Pat Name: WILLEM BALDWIN Department: Room: - Gender: F Blunger: berta : 1965 Requested By: Say Cardenas Order Number: [id number] Reading MD: Kenia Gonzalez Measurements Intervals [place] Rate: 62 P: 12 OR: 136 QRS: 4 QRSD: 92 T: 22 QT: 398 QTc: 407 Interpretive Statements SINUS RHYTHM NSTTW ABNORMALITY SIMILAR 01/29/17 Electronically Signed On 02-10-2017 10:38:44 EDT by Kenia Gonzalez
[2017-02-10 12:00] VITALS: BP 131/63
[2017-02-10 16:00] VITALS: BP 140/61
[2017-02-10] MEDS: ONDANSETRON 4 MG ORAL DISINTEGRATING TAB (S0181) PO PRN (17:18)
[2017-02-10 18:47] VITALS: BP 155/75
--- NOTE | 2017-02-10 18:47 | IPNPDOC ---
Subjective Date Seen The patient was seen on 02/10/17. Subjective Chief Complaint/HPI Patient seen and examined at the bedside. States that her abdominal pain in the right upper quadrant areas better controlled this morning. States that she will try a by mouth diet to see how she feels. Denies any other acute complaints at this time. Objective Physical Examination General Exam: Positive: Alert, Cooperative, No Acute Distress, Other (morbidly obese female resting in bed) ENT Exam: Positive: Atraumatic, Mucous membr. moist/pink Neck Exam: Negative: JVD Chest Exam: Positive: Clear to auscultation, Normal air movement Heart Exam: Positive: Rate Normal, Normal S1, Normal S2 Abdomen Exam: Positive: Soft, Tenderness (mild tenderness to deep palpation in the right upper quadrant. No rebound tenderness or rigidity noted.) Extremity Exam: Negative: Tenderness Psych Exam: Positive: Oriented x 3 Assessment /Plan Plan/VTE VTE Prophylaxis Ordered?: Yes Plan RUQ Abdominal Pain 2/[address] Abd/Pel noted IV Cipro/Flagyl ordered Gentle IVF Hydration Advance diet as tolerated WBC not elevated, Afebrile We will cont to monitor the patient's progress Hyperammonemia from underlying Liver Disease Serum Ammonia level noted to be 167 on admission-->88 this AM Mentation is intact on examination Will continue the patient on Lactulose and add Rifaximin 550mg BID Gentle IVF Hydration We will continue to monitor the patient's Ammonia level Acute kidney injury likely 2/2 Volume Depletion, decreased PO Intake, and concomitant use of Diuretic Therapy Serum Creatinine 1.37, baseline Serum Cr ~1.0 Will hold nephrotoxins IVF Hydration We will continue to monitor the patient's BMP Insulin dependent diabetes mellitus We will continue Levemir Insulin sliding scale for additional coverage Non-Alcoholic Steatohepatitis, Hypoalbuminemia INR wnl, LFTs wnl Follows with GI Dr. Oates in [place], [place] area HTN (hypertension), stable Cont current regimen Pancytopenia likely 2/2 Chronic Liver Disease Stable with no indication for transfusion at this time Asthma, stable Continue albuterol when necessary Restless leg syndrome Continue ropinirole Chronic pain meds Continue as ordered Anxiety, depression Continue Bupropion DVT prophylaxis SCDs/TEDs VS, I&O, 24H, Fishbone Vital Signs/I&O Vital Signs Date Time Temp Pulse Resp B/P (MAP) Pulse Ox O2 Delivery O2 Flow Rate FiO2 8/8/17 18:40 18 Room Air 02/10/17 16:13 140/61 02/10/17 16:00 98.6 64 98 Laboratory Data 24H LABS Laboratory Tests 2 02/09/17 21:30: Anion Gap 5L, Glomerular Filtration Rate 43.4L, Blood Urea Nitrogen 32H, Creatinine 1.37H, Sodium Level 140, Potassium Level 4.9, Chloride Level 112H, Carbon Dioxide Level 23, Calcium Level 8.6 02/10/17 07:30: Bedside Glucose (Misc Panel) 210H 02/10/17 08:25: Anion Gap 8, Glomerular Filtration Rate 54.3, Blood Urea Nitrogen 30H, Creatinine 1.13H, Sodium Level 143, Potassium Level 4.3, Chloride Level 112H, Carbon Dioxide Level 23, Calcium Level 7.6L, Aspartate Amino Transf (AST/SGOT) 18, Alanine Aminotransferase (ALT/SGPT) 19, Alkaline Phosphatase 76, Total Bilirubin 0.5, Total Protein 5.9L, Albumin 3.1L, Magnesium Level 2.2, Ammonia 88H, Albumin/Globulin Ratio 1.11 02/10/17 11:38: Bedside Glucose (Misc Panel) 232H 02/10/17 17:28: Bedside Glucose (Misc Panel) 162H CBC/BMP Laboratory Tests 02/09/17 21:30 Calcium Level 8.6 02/10/17 08:25 Calcium Level 7.6 L, Red Blood Count 3.05 L, Mean Corpuscular Volume 101.6 H, Mean Corpuscular Hemoglobin 34.2 H, Mean Corpuscular Hemoglobin Concent 33.6, Red Cell Distribution Width 13.8, Aspartate Amino Transf (AST/SGOT) 18, Alanine Aminotransferase (ALT/SGPT) 19, Alkaline Phosphatase 76, Total Bilirubin 0.5, Total Protein 5.9 L, Albumin 3.1 L CASEY GAMING MD Feb 10, 2017 18:47
[2017-02-10 19:45] VITALS: BP 169/77
[2017-02-10] MEDS: LEVEMIR (INSULIN DETEMIR) 1 UNITS/0.01ML SC SCH (21:00)
[2017-02-11] MEDS: MORPHINE 2 MG/ML 1ML SYRINGE IV PRN ×6 (00:14→22:49)
[2017-02-11] MEDS: metroNIDAZOLE 500 MG in APPROPRIATE DILUENT 1 EA IV SCH ×3 (01:10→16:13)
[2017-02-11 04:36] VITALS: BP 143/70
[2017-02-11 07:46] LABS: MEAN CORPUSCULAR HEMOGLOBIN 34.8 pg (27.0-33.0); MEAN CORPUSCULAR HGB CONC 34.4 g/dl (32.0-36.5); MEAN CORPUSCULAR VOLUME 101.2 fl (80.0-96.0); RED CELL DISTRIBUTION WIDTH 13.5 % (11.5-14.5); WHITE BLOOD COUNT 2.9 K/mm3 (4.0-10.0)
[2017-02-11 07:54] LABS: ALBUMIN 3.2 GM/DL (3.2-5.2); ALBUMIN/GLOBULIN RATIO 0.91 (1.00-1.93); BILIRUBIN,TOTAL 0.5 MG/DL (0.2-1.0); CALCIUM LEVEL 8.5 MG/DL (8.5-10.1); CREATININE FOR GFR 1.14 MG/DL (0.55-1.02); GLOMERULAR FILTRATION RATE 53.7 (>51); MAGNESIUM LEVEL 2.1 MG/DL (1.8-2.4); POTASSIUM SERUM 4.3 MEQ/L (3.5-5.1); TOTAL PROTEIN 6.7 GM/DL (6.4-8.2)
[2017-02-11] MEDS: HumaLOG INSULIN (NovoLOG) PER UNIT SC SCH ×3 (08:28→17:50)
[2017-02-11] MEDS: rifAXIMin 550 MG TAB (XIFAXAN) PO SCH ×2 (08:28→21:04)
[2017-02-11] MEDS: MONTELUKAST 10 MG TAB PO SCH (08:29)
[2017-02-11] MEDS: HYDROmorphone 2 MG TAB PO PRN ×2 (08:29→17:47)
[2017-02-11] MEDS: MAGNESIUM OXIDE 400 MG TAB (MAG-OX) PO SCH (08:29)
[2017-02-11] MEDS: rOPINIRole 1MG TAB PO SCH ×2 (08:29→21:05)
[2017-02-11] MEDS: ASPIRIN 81 MG ENTERIC TAB PO SCH (08:29)
[2017-02-11] MEDS: GABAPENTIN 400 MG CAP PO SCH (08:30)
[2017-02-11] MEDS: CETIRIZINE (ZyrTEC) 10 MG TAB PO SCH (08:30)
[2017-02-11] MEDS: OMEPRAZOLE 20 MG CAP PO SCH (08:30)
[2017-02-11] MEDS: LACTULOSE 20 GM/30 ML SYRUP UD PO SCH ×4 (08:30→21:04)
[2017-02-11] MEDS: buPROPion **XL** TABLET 150MG (WELLBUTRIN XL) PO SCH (08:30)
[2017-02-11] MEDS: **hydrALAZINE HCL** 25 MG TAB PO SCH ×4 (08:33→21:05)
[2017-02-11] MEDS: CARVedilol 12.5 MG TAB PO SCH ×2 (08:33→21:05)
[2017-02-11] MEDS: CIPROFLOXACIN 400 MG in APPROPRIATE DILUENT 1 EA IV SCH ×2 (12:41→23:05)
[2017-02-11] MEDS: traMADol 50 MG TAB PO PRN ×2 (12:41→21:07)
[2017-02-11 14:00] VITALS: BP 142/60
--- NOTE | 2017-02-11 15:09 | IPNPDOC ---
Subjective Date Seen The patient was seen on 02/11/17. Subjective Chief Complaint/HPI Patient seen and examined at the bedside. She states that she does have some lower back pain today which is chronic for her. She states that the beds in the hospital make it worse. Otherwise denies any other acute complaints at this time. Objective Physical Examination General Exam: Positive: Alert, Cooperative, No Acute Distress, Other (morbidly obese female resting in bed) ENT Exam: Positive: Atraumatic, Mucous membr. moist/pink Neck Exam: Negative: JVD Chest Exam: Positive: Clear to auscultation, Normal air movement Heart Exam: Positive: Rate Normal, Normal S1, Normal S2 Abdomen Exam: Positive: Soft, Negative: Tenderness Extremity Exam: Negative: Tenderness Psych Exam: Positive: Oriented x 3 Assessment /Plan Plan/VTE VTE Prophylaxis Ordered?: Yes Plan RUQ Abdominal Pain 2/[address] Abd/Pel noted Cont IV Cipro/Flagyl--we will switch over to by mouth antibiotics tomorrow Patient tolerating by mouth diet at this time WBC not elevated, Afebrile We will cont to monitor the patient's progress Hyperammonemia from underlying Liver Disease Serum Ammonia level noted to be 167 on admission-->88-->71 this AM Mentation is intact on examination Will continue the patient on Lactulose and add Rifaximin 550mg BID We will continue to monitor the patient's Ammonia level Acute kidney injury likely 2/2 Volume Depletion, decreased PO Intake, and concomitant use of Diuretic Therapy Serum Creatinine 1.14, baseline Serum Cr ~1.0 Will hold nephrotoxins We will continue to monitor the patient's BMP Insulin dependent diabetes mellitus We will continue Levemir Insulin sliding scale for additional coverage Non-Alcoholic Steatohepatitis, Hypoalbuminemia INR wnl, LFTs wnl Follows with GI Dr. Oates in [place], [place] area HTN (hypertension), stable Cont current regimen Pancytopenia likely 2/2 Chronic Liver Disease Stable with no indication for transfusion at this time Asthma, stable Continue albuterol when necessary Restless leg syndrome Continue ropinirole Chronic pain meds Continue as ordered Patient with back pain today--no alarm signs of saddle anesthesia, urinary/ fecal incontinence Have ordered supportive treatment with K-Pad, increased gabapentin dose Anxiety, depression Continue Bupropion DVT prophylaxis SCDs/TEDs VS, I&O, 24H, Fishbone Vital Signs/I&O Vital Signs Date Time Temp Pulse Resp B/P (MAP) Pulse Ox O2 Delivery O2 Flow Rate FiO2 02/11/17 14:31 18 02/11/17 14:00 98.8 73 142/60 (87) 94 Room Air I&O- Last 24 Hours up to 6 AM 02/11/17 05:59 Intake Total 1980 ml Output Total 1000 ml Balance 980 ml Laboratory Data 24H LABS Laboratory Tests 2 02/10/17 17:28: Bedside Glucose (Misc Panel) 162H 02/10/17 20:00: Bedside Glucose (Misc Panel) 208H 02/11/17 07:05: Anion Gap 6L, Glomerular Filtration Rate 53.7, Blood Urea Nitrogen 29H, Creatinine 1.14H, Sodium Level 140, Potassium Level 4.3, Chloride Level 110H, Carbon Dioxide Level 24, Calcium Level 8.5, Aspartate Amino Transf (AST/SGOT) 17 , Alanine Aminotransferase (ALT/SGPT) 21, Alkaline Phosphatase 81, Total Bilirubin 0.5, Total Protein 6.7, Albumin 3.2, Magnesium Level 2.1, Ammonia 71H , Albumin/Globulin Ratio 0.91L 02/11/17 12:11: Bedside Glucose (Misc Panel) 126H CBC/BMP Laboratory Tests 02/11/17 07:05 Red Blood Count 3.07 L, Mean Corpuscular Volume 101.2 H, Mean Corpuscular Hemoglobin 34.8 H, Mean Corpuscular Hemoglobin Concent 34.4, Red Cell Distribution Width 13.5, Calcium Level 8.5, Aspartate Amino Transf (AST/SGOT) 17 , Alanine Aminotransferase (ALT/SGPT) 21, Alkaline Phosphatase 81, Total Bilirubin 0.5, Total Protein 6.7, Albumin 3.2 CASEY GAMING MD Feb 11, 2017 15:09
[2017-02-11] MEDS: GABAPENTIN 300 MG CAP PO SCH ×2 (16:11→21:05)
[2017-02-11] MEDS ORDERED: MORPHINE 2 MG/ML 1ML SYRINGE IV ONE (19:00)
[2017-02-11] MEDS ORDERED: BISACODYL 10 MG SUPP PR PRN (19:00)
[2017-02-11] MEDS: LEVEMIR (INSULIN DETEMIR) 1 UNITS/0.01ML SC SCH (21:06)
--- NOTE | 2017-02-11 21:58 | ECGEPIP ---
Stationary ECG Study [facility] Test Date: 2017-02-09 Pat Name: WILLEM BALDWIN Department: Room: 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
[2017-02-11 22:00] VITALS: BP 168/77
[2017-02-12] MEDS: metroNIDAZOLE 500 MG in APPROPRIATE DILUENT 1 EA IV SCH ×2 (00:49→09:28)
[2017-02-12] MEDS: MORPHINE 2 MG/ML 1ML SYRINGE IV PRN ×5 (02:33→21:52)
[2017-02-12 06:00] VITALS: BP 140/65
[2017-02-12 08:05] LABS: ALBUMIN/GLOBULIN RATIO 0.97 (1.00-1.93); ALKALINE PHOSPHATASE 75 U/L (45-117); ALT/SGPT 18 U/L (12-78); ANION GAP 5 MEQ/L (8-16); AST/SGOT 17 U/L (15-37); BILIRUBIN,TOTAL 0.5 MG/DL (0.2-1.0); BLOOD UREA NITROGEN 28 MG/DL (7-18); CALCIUM LEVEL 8.2 MG/DL (8.5-10.1); CARBON DIOXIDE LEVEL 25 MEQ/L (21-32); CHLORIDE LEVEL 112 MEQ/L (98-107); CREATININE FOR GFR 0.98 MG/DL (0.55-1.02); GLOMERULAR FILTRATION RATE > 60.0 (>51); GLUCOSE, FASTING 148 MG/DL (70-105); MAGNESIUM LEVEL 2.3 MG/DL (1.8-2.4); POTASSIUM SERUM 4.4 MEQ/L (3.5-5.1); SODIUM LEVEL 142 MEQ/L (136-145); TOTAL PROTEIN 6.1 GM/DL (6.4-8.2)
[2017-02-12 08:36] LABS: MEAN CORPUSCULAR HEMOGLOBIN 33.6 pg (27.0-33.0); MEAN CORPUSCULAR HGB CONC 33.4 g/dl (32.0-36.5); MEAN CORPUSCULAR VOLUME 100.7 fl (80.0-96.0); RED CELL DISTRIBUTION WIDTH 13.3 % (11.5-14.5); WHITE BLOOD COUNT 2.6 K/mm3 (4.0-10.0)
[2017-02-12] MEDS: rifAXIMin 550 MG TAB (XIFAXAN) PO SCH ×2 (09:29→21:33)
[2017-02-12] MEDS: MAGNESIUM OXIDE 400 MG TAB (MAG-OX) PO SCH (09:29)
[2017-02-12] MEDS: CETIRIZINE (ZyrTEC) 10 MG TAB PO SCH (09:29)
[2017-02-12] MEDS: ASPIRIN 81 MG ENTERIC TAB PO SCH (09:29)
[2017-02-12] MEDS: **hydrALAZINE HCL** 25 MG TAB PO SCH ×4 (09:29→21:32)
[2017-02-12] MEDS: CARVedilol 12.5 MG TAB PO SCH ×2 (09:29→21:33)
[2017-02-12] MEDS: MONTELUKAST 10 MG TAB PO SCH (09:30)
[2017-02-12] MEDS: rOPINIRole 1MG TAB PO SCH ×2 (09:30→21:33)
[2017-02-12] MEDS: LACTULOSE 20 GM/30 ML SYRUP UD PO SCH ×4 (09:30→21:36)
[2017-02-12] MEDS: traMADol 50 MG TAB PO PRN (09:30)
[2017-02-12] MEDS: OMEPRAZOLE 20 MG CAP PO SCH (09:30)
[2017-02-12] MEDS: buPROPion **XL** TABLET 150MG (WELLBUTRIN XL) PO SCH (09:30)
[2017-02-12] MEDS: GABAPENTIN 300 MG CAP PO SCH ×3 (09:30→21:32)
[2017-02-12] MEDS: HumaLOG INSULIN (NovoLOG) PER UNIT SC SCH ×3 (09:31→17:34)
[2017-02-12] MEDS: FUROSEMIDE 40 MG TAB PO SCH (09:57)
--- NOTE | 2017-02-12 12:16 | IPNPDOC ---
Subjective Date Seen The patient was seen on 02/12/17. Subjective Chief Complaint/HPI Patient seen and examined at the bedside this morning. She is tearful upon conversation when talking about the chronicity of her back pain and recent admissions to the hospital regarding her liver disease and kidney function. Denies any other acute complaints at this time. Objective Physical Examination General Exam: Positive: Alert, Cooperative, No Acute Distress, Other (morbidly obese female resting in bed) ENT Exam: Positive: Atraumatic, Mucous membr. moist/pink Neck Exam: Negative: JVD Chest Exam: Positive: Clear to auscultation, Normal air movement Heart Exam: Positive: Rate Normal, Normal S1, Normal S2 Abdomen Exam: Positive: Soft, Negative: Tenderness Extremity Exam: Positive: Swelling (2+ pitting edema in the lower extremities B /L), Negative: Tenderness Psych Exam: Positive: Oriented x 3 Assessment /Plan Plan/VTE VTE Prophylaxis Ordered?: Yes Plan RUQ Abdominal Pain 2/[address] Abd/Pel noted Cont PO Flagyl/Cipro Patient tolerating by mouth diet at this time WBC not elevated, Afebrile We will cont to monitor the patient's progress Hyperammonemia from underlying Liver Disease Serum Ammonia level noted to be 167 on admission-->88-->71-->54 this AM Mentation is intact on examination Will continue the patient on Lactulose and add Rifaximin 550mg BID We will continue to monitor the patient's Ammonia level Acute kidney injury likely 2/2 Volume Depletion, decreased PO Intake, and concomitant use of Diuretic Therapy, resolved Serum Creatinine at baseline Insulin dependent diabetes mellitus We will continue Levemir Insulin sliding scale for additional coverage Non-Alcoholic Steatohepatitis, Hypoalbuminemia INR wnl, LFTs wnl Follows with GI Dr. Oates in [place], [place] area HTN (hypertension), stable Cont current regimen Pancytopenia likely 2/2 Chronic Liver Disease Stable with no indication for transfusion at this time Asthma, stable Continue albuterol when necessary Restless leg syndrome Continue ropinirole Chronic pain meds Continue as ordered Have ordered supportive treatment with K-Pad, increased gabapentin dose for back pain Pain mgmt consulted Anxiety, depression Continue Bupropion DVT prophylaxis SCDs/TEDs VS, I&O, 24H, Fishbone Vital Signs/I&O Vital Signs Date Time Temp Pulse Resp B/P (MAP) Pulse Ox O2 Delivery O2 Flow Rate FiO2 02/12/17 11:55 Room Air 02/12/17 10:13 18 02/12/17 09:29 72 144/73 02/12/17 06:03 97 02/12/17 06:00 98.9 I&O- Last 24 Hours up to 6 AM 02/12/17 06:00 Intake Total 1860 ml Output Total 450 ml Balance 1410 ml Laboratory Data 24H LABS Laboratory Tests 2 02/11/17 16:44: Bedside Glucose (Misc Panel) 175H 02/11/17 21:04: Bedside Glucose (Misc Panel) 175H 02/12/17 06:57: Bedside Glucose (Misc Panel) 169H 02/12/17 07:12: Anion Gap 5L, Glomerular Filtration Rate > 60.0, Blood Urea Nitrogen 28H, Creatinine 0.98, Sodium Level 142, Potassium Level 4.4, Chloride Level 112H, Carbon Dioxide Level 25, Calcium Level 8.2L, Aspartate Amino Transf (AST/SGOT) 17, Alanine Aminotransferase (ALT/SGPT) 18, Alkaline Phosphatase 75, Total Bilirubin 0.5, Total Protein 6.1L, Albumin 3.0L, Magnesium Level 2.3, Ammonia 54H, Albumin/Globulin Ratio 0.97L 02/12/17 11:34: Bedside Glucose (Misc Panel) 143H CBC/BMP Laboratory Tests 02/12/17 07:12 Red Blood Count 3.01 L, Mean Corpuscular Volume 100.7 H, Mean Corpuscular Hemoglobin 33.6 H, Mean Corpuscular Hemoglobin Concent 33.4, Red Cell Distribution Width 13.3, Calcium Level 8.2 L, Aspartate Amino Transf (AST/SGOT) 17, Alanine Aminotransferase (ALT/SGPT) 18, Alkaline Phosphatase 75, Total Bilirubin 0.5, Total Protein 6.1 L, Albumin 3.0 L CASEY GAMING MD Feb 12, 2017 12:16
[2017-02-12] MEDS: metroNIDAZOLE (FLAGYL) 500 MG TAB PO SCH ×2 (13:38→21:32)
[2017-02-12] MEDS: CIPROFLOXACIN 500 MG TAB PO SCH ×2 (13:38→17:34)
[2017-02-12 14:00] VITALS: BP 128/60
--- NOTE | 2017-02-12 20:17 | CR.PDOC ---
[facility] Pain Clinic Consultation General Date of Consultation: 02/12/17 Consultation Report For: CASEY GAMING MD Chief Complaint The patient is a 51-year-old female admitted with a reason for visit of Abdominal Pain, Hyperkalemia. Pain management is asked to see her for her complaint of chronic low back pain. She is a long-term patient of our clinic with her last visit with [facility] on 12/10/2016. History of Present Illness Hina Devi is a 51-year-old female known to our practice who was admitted for increasing abdominal pain and hepatic dysfunction. His found to have a markedly elevated ammonia level. Since her hospitalization. She is reporting intense pain which is across the low back and into the hips as well as at the base of the neck and head and across the shoulder blades. She rates her pain level as varying from a 4 to an 8/10. When the pain escalates. She rocks trying to relieve it, and set states that it is so bad she just cries. She has been treated during her hospital stay with morphine 2 mg IV, which she has not found particularly effective and hydromorphone on which is also not been particularly effective. She has previously been on morphine and Dilaudid orally and she has found that the morphine seems to work better. Home Medications Scheduled (Toujeo Solostar) 300 Unit/Ml Inj, 54 UNIT SC QHS, (Reported) (Arnuity Ellipta) 200 Mcg/Act Inh, 200 MCG INH DAILY, (Reported) Aspirin (Aspir-81) 81 Mg Tab, 81 MG PO DAILY, (Reported) Bupropion Hcl (Bupropion HCl Xl) 150 Mg Tab, 150 MG PO DAILY, (Reported) Carvedilol (Carvedilol) 25 Mg Tab, 25 MG PO BID, (Reported) Cetirizine HCl (Cetirizine HCl) 10 Mg Tab, 10 MG PO DAILY, (Reported) Dicyclomine HCl (Dicyclomine HCl) 10 Mg Cap, 10 MG PO QID, (Reported) Docusate Sod/Senna (Senna S 8.6-50 mg) 1 Tab Tab, 2 TAB PO BID, (Reported) Furosemide (Furosemide) 40 Mg Tab, 40 MG PO DAILY, (Reported) Gabapentin (Gabapentin) 400 Mg Cap, 400 MG PO TID, (Reported) Hydralazine HCl (Hydralazine HCl) 25 Mg Tab, 50 MG PO QID, (Reported) Insulin Aspart (Novolog) 100 U/Ml Inj, 1 UNITS SC AC, (Reported) PER SLIDING SCALE Lactulose (Lactulose) 10 Gm/15 Ml Petty, 30 GM PO TID, (Reported) Losartan Potassium (Losartan Potassium) 50 Mg Tab, 50 MG PO BID, (Reported) Magnesium Oxide (Magnesium Oxide 400) 400 Mg Tab, 400 MG PO DAILY, (Reported) Montelukast Sodium (Montelukast Sodium) 10 Mg Tab, 10 MG PO DAILY, (Reported) Omeprazole (Omeprazole) 20 Mg Cap, 20 MG PO DAILY, (Reported) Riboflavin (B2) 100 Mg Tab, 100 MG PO DAILY, (Reported) Rifaximin (Xifaxan) 550 Mg Tab, 550 MG PO BID, (Reported) Ropinirole Hydrochloride (Requip) 2 Mg Tab, 2 MG PO BID, (Reported) TAKES EITHER BID OR 2QHS Scheduled PRN (Saline Nasal [place]) 0.65 % Spr, 1 SPRAY NA QID PRN for NASAL DRYNESS, ( Reported) Albuterol Sulfate (Proair Hfa) 108 Mcg/Act Aer, 2 PUFF INH Q4H PRN for WHEEZING, (Reported) Albuterol/Ipratropium (Ipratropium [place]/Albut 0.5-2.5 (3) mg/3Ml) 1 Petty Petty, 1 PETTY INH QID PRN for SHORTNESS OF BREATH, (Reported) Clonazepam (Clonazepam) 1 Mg Tab, 1 MG PO QHS PRN for SLEEP, (Reported) Fluticasone Propionate (Fluticasone Propionate) 50 Mcg/Act Spr, 1 SPRAY NA DAILY PRN for CONGESTION, (Reported) Hydromorphone HCl (Hydromorphone HCl) 2 Mg Tab, 1 MG PO TID PRN for PAIN, ( Reported) Ondansetron (Zofran Odt) 4 Mg Tab, 4 MG PO Q4H PRN for NAUSEA, (Reported) TAKES BEFORE DILAUDID Allergies Coded Allergies: Metformin (Verified Allergy, Intermediate, RASH, 02/09/17) Lisinopril (Verified Allergy, Unknown, 02/09/17) Losartan (Verified Allergy, Unknown, 02/09/17) Diltiazem (Verified Adverse Reaction, Intermediate, SWELLINGING IN HANDS, FEET, AND LEGS, 02/09/17) Phenazopyridine (Verified Adverse Reaction, Mild, BLEEDING, 02/09/17) Rosiglitazone (Verified Adverse Reaction, Mild, WATER RETENTION, 02/09/17) Past Medical History Medical History Past medical history is significant for nonalcoholic steatohepatitis with episodes of encephalopathy secondary to elevated ammonia levels, history of restless leg syndrome, morbid obesity, diabetes mellitus, asthma and hypertension. She also has history of chronic thrombocytopenia, chronic anemia and chronic leukopenia. She is being scheduled to be seen at [facility] for consideration for liver transplant. Family History Family History Noncontributory Social History Social History Denies tobacco, alcohol, or illicit substance abuse. Review of Systems Subjective HEENT: Denies: head aches, vision problems, hearing problems Skin: Reports: change in color (dusky), bruising, Denies: lesions, rash, breakdown Pulmonary: Reports: shortness of breath, Denies: cough, dyspnea Cardiovascular: Reports: edema (significant upper and lower extremity edema), Denies: chest pain, palpitations Gastrointestinal: Reports: abdominal pain (significant abdominal pressure), constipation, Denies: loss of bowel control Genitourinary: Denies: dysuria, hematuria, loss of bladder control Hematologic: Reports: anemia (history of anemia), easy bruising, Denies: blood dyscrasias Endocrine: Reports: Diabetes mellitus Musculoskeletal: Reports: shoulder pain, leg pain, muscle pain, spasms, muscle stiffness, midthoracic pain Neurological: Reports: numbness, pre-existing deficit, Denies: headache, seizures, tremors, weakness, migraines Psych: Reports: mood normal, Denies: thoughts of self harm, thoughts of harming other Physical Examination Physical Examination Vital Signs/I&O Vital Signs Date Time Temp Pulse Resp B/P (MAP) Pulse Ox O2 Delivery O2 Flow Rate FiO2 02/12/17 18:41 18 Room Air 02/12/17 17:34 128/60 02/12/17 14:00 97.6 70 97 I&O- Last 24 Hours up to 6 AM 02/12/17 06:00 Intake Total 1860 ml Output Total 450 ml Balance 1410 ml Recent Travel/Sick Contacts: Denies: Recent travel, Recent sick contacts General Exam: Positive: alert, attentive, talkative, no acute distress, oriented times three ENT EXAM: Positive: normocephalic Neck Exam: Negative: Lymphadenopathy, Thyromegaly Chest Exam: Positive: Clear to auscultation, Negative: Wheezing, Rales Heart Exam: Positive: Regular rate and rhythm, Normal S1, S2, Negative: Murmurs, Rubs Abdominal Exam: Positive: Normal bowel sounds, Soft, Nondistended Extremity Exam: Positive: Edema (2+ in lower extremities to the calf) Skin Exam: Positive: Warm, Dry, Negative: Rashes, Lesions Neuro Exam: Positive: Muscle Strength U/L Ext., Normal Tone Psych Exam: Positive: Mental status NL, Mood NL Inspection of spine Some tenderness with palpation over the lumbar spinous processes. Musculoskeletal Able to rise to standing position slowly. Tenderness with palpation over lumbar paravertebral muscles and across the lumbar facets bilaterally. Trigger points and tight fibrous bands are identified over the trapezius muscles right side greater than left, and particularly along the right scapula. Tenderness with palpation bilaterally over the trochanters. Posture is slightly stooped. Gait is wide-based but nonantalgic Laboratory Data FSBS Laboratory Tests Test 02/11/17 21:04 02/12/17 06:57 02/12/17 11:34 02/12/17 16:36 Range/Units Bedside Glucose (Misc Panel) 175 169 143 209 70-105 MG/DL Assessment 1. Chronic lower extremity peripheral neuropathy. 2. Myofascial pain syndrome. 3. Lumbago Recommendation and Plan Patient has been on intermittent dosing of hydromorphone at home. She is been noting an increase in general pain. She believes that the morphine was more effective than the hydromorphone. Certainly could look at have her start on long -acting morphine 15 mg starting at twice a day. This would have to be balanced carefully with her mentation, particularly in light of her elevated ammonia levels. However, I do note that her current ammonia level is at its all-time high of 167 and yet she is absolutely L alert, awake, oriented and has no tremor. I have encouraged her to be as active as possible. I also asked her to call as soon as she knows what she is going to be discharged from the hospital so that she can get in for clinic visit so that we can work on better ways to keep her pain under better control. Thank you Dr. Gaming, for allowing us to participate in the care of your patient , Hina Devi . Should you have any questions we will be glad to discuss this with you at any time please contact us here at the pain center at [phone]. Megan Tatum Feb 12, 2017 20:17
[2017-02-12 20:35] VITALS: BP 150/72
[2017-02-12] MEDS: clonazePAM 1 MG TAB PO PRN (21:32)
[2017-02-12] MEDS: LEVEMIR (INSULIN DETEMIR) 1 UNITS/0.01ML SC SCH (21:34)
[2017-02-12 22:23] VITALS: BP 174/62
[2017-02-12] MEDS: HYDROmorphone 2 MG TAB PO PRN (22:38)
[2017-02-13 03:53] VITALS: BP 137/65
[2017-02-13] MEDS: MORPHINE 2 MG/ML 1ML SYRINGE IV PRN ×3 (04:39→17:54)
[2017-02-13] MEDS: metroNIDAZOLE (FLAGYL) 500 MG TAB PO SCH ×3 (05:51→21:00)
[2017-02-13] MEDS: CIPROFLOXACIN 500 MG TAB PO SCH ×2 (05:51→17:48)
[2017-02-13 06:00] VITALS: BP 137/65
[2017-02-13 07:31] LABS: MEAN CORPUSCULAR HEMOGLOBIN 34.4 pg (27.0-33.0); MEAN CORPUSCULAR HGB CONC 34.1 g/dl (32.0-36.5); RED CELL DISTRIBUTION WIDTH 13.9 % (11.5-14.5); WHITE BLOOD COUNT 2.8 K/mm3 (4.0-10.0)
[2017-02-13 07:33] LABS: ALBUMIN 2.7 GM/DL (3.2-5.2); ALBUMIN/GLOBULIN RATIO 0.93 (1.00-1.93); BILIRUBIN,TOTAL 0.5 MG/DL (0.2-1.0); CALCIUM LEVEL 8.6 MG/DL (8.5-10.1); CREATININE FOR GFR 1.09 MG/DL (0.55-1.02); GLOMERULAR FILTRATION RATE 56.6 (>51); MAGNESIUM LEVEL 2.2 MG/DL (1.8-2.4); POTASSIUM SERUM 4.7 MEQ/L (3.5-5.1); TOTAL PROTEIN 5.6 GM/DL (6.4-8.2)
[2017-02-13] MEDS: LACTULOSE 20 GM/30 ML SYRUP UD PO SCH ×4 (09:33→20:57)
[2017-02-13] MEDS: MONTELUKAST 10 MG TAB PO SCH (09:33)
[2017-02-13] MEDS: MAGNESIUM OXIDE 400 MG TAB (MAG-OX) PO SCH (09:33)
[2017-02-13] MEDS: HumaLOG INSULIN (NovoLOG) PER UNIT SC SCH ×3 (09:33→17:49)
[2017-02-13] MEDS: rifAXIMin 550 MG TAB (XIFAXAN) PO SCH ×2 (09:33→20:57)
[2017-02-13] MEDS: CETIRIZINE (ZyrTEC) 10 MG TAB PO SCH (09:34)
[2017-02-13] MEDS: buPROPion **XL** TABLET 150MG (WELLBUTRIN XL) PO SCH (09:34)
[2017-02-13] MEDS: OMEPRAZOLE 20 MG CAP PO SCH (09:34)
[2017-02-13] MEDS: GABAPENTIN 300 MG CAP PO SCH ×3 (09:34→20:56)
[2017-02-13] MEDS: ASPIRIN 81 MG ENTERIC TAB PO SCH (09:34)
[2017-02-13] MEDS: FUROSEMIDE 40 MG TAB PO SCH (09:34)
[2017-02-13] MEDS: CARVedilol 12.5 MG TAB PO SCH ×2 (09:35→20:58)
[2017-02-13] MEDS: **hydrALAZINE HCL** 25 MG TAB PO SCH ×4 (09:35→20:57)
[2017-02-13] MEDS: rOPINIRole 1MG TAB PO SCH ×2 (09:36→20:58)
[2017-02-13 14:00] VITALS: BP 166/72
--- NOTE | 2017-02-13 16:47 | IPNPDOC ---
Subjective Date Seen The patient was seen on 02/13/17. Subjective Chief Complaint/HPI Patient seen and examined at the bedside this morning. States that she would like to try long-acting morphine for pain control as she discussed with her pain management provider. Reports that her back pain is better today, but still not controlled. She denies any other acute complaints at this time. Objective Physical Examination General Exam: Positive: Alert, Cooperative, No Acute Distress, Other (morbidly obese female resting in bed) ENT Exam: Positive: Atraumatic, Mucous membr. moist/pink Neck Exam: Negative: JVD Chest Exam: Positive: Clear to auscultation, Normal air movement Heart Exam: Positive: Rate Normal, Normal S1, Normal S2 Abdomen Exam: Positive: Soft, Negative: Tenderness Extremity Exam: Positive: Swelling (2+ pitting edema in the lower extremities B /L), Negative: Tenderness Psych Exam: Positive: Oriented x 3 Assessment /Plan Plan/VTE VTE Prophylaxis Ordered?: Yes Plan RUQ Abdominal Pain 2/[address] Abd/Pel noted Cont PO Flagyl/Cipro Patient tolerating by mouth diet at this time WBC not elevated, Afebrile We will cont to monitor the patient's progress Hyperammonemia from underlying Liver Disease Serum Ammonia level noted to be 167 on admission-->88-->71-->54--> 40 this AM Mentation is intact on examination Will continue the patient on Lactulose and Rifaximin 550mg BID We will continue to monitor the patient's Ammonia level Acute kidney injury likely 2/2 Volume Depletion, decreased PO Intake, and concomitant use of Diuretic Therapy, resolved Serum Creatinine at baseline Insulin dependent diabetes mellitus We will continue Levemir Insulin sliding scale for additional coverage Non-Alcoholic Steatohepatitis, Hypoalbuminemia INR wnl, LFTs wnl Follows with GI Dr. Oates in [place], [place] area HTN (hypertension), stable Cont current regimen Pancytopenia likely 2/2 Chronic Liver Disease Stable with no indication for transfusion at this time Asthma, stable Continue albuterol when necessary Restless leg syndrome Continue ropinirole Chronic pain meds Continue as ordered Have ordered supportive treatment with K-Pad, increased gabapentin dose for back pain Pain mgmt consult appreciated Anxiety, depression Continue Bupropion DVT prophylaxis SCDs/TEDs VS, I&O, 24H, Fishbone Vital Signs/I&O Vital Signs Date Time Temp Pulse Resp B/P (MAP) Pulse Ox O2 Delivery O2 Flow Rate FiO2 02/13/17 16:33 166/72 02/13/17 14:00 97.6 75 18 96 Room Air I&O- Last 24 Hours up to 6 AM 02/13/17 06:00 Intake Total 1920 ml Balance 1920 ml Laboratory Data 24H LABS Laboratory Tests 2 02/12/17 20:51: Bedside Glucose (Misc Panel) 167H 02/13/17 07:04: Anion Gap 8, Glomerular Filtration Rate 56.6, Blood Urea Nitrogen 31H, Creatinine 1.09H, Sodium Level 145, Potassium Level 4.7, Chloride Level 113H, Carbon Dioxide Level 24, Calcium Level 8.6, Aspartate Amino Transf (AST/SGOT) 19 , Alanine Aminotransferase (ALT/SGPT) 15, Alkaline Phosphatase 63, Total Bilirubin 0.5, Total Protein 5.6L, Albumin 2.7L, Magnesium Level 2.2, Ammonia 40H, Albumin/Globulin Ratio 0.93L 02/13/17 11:54: Bedside Glucose (Misc Panel) 182H 02/13/17 16:31: Bedside Glucose (Misc Panel) 201H CBC/BMP Laboratory Tests 02/13/17 07:04 Red Blood Count 2.71 L, Mean Corpuscular Volume 101.0 H, Mean Corpuscular Hemoglobin 34.4 H, Mean Corpuscular Hemoglobin Concent 34.1, Red Cell Distribution Width 13.9, Calcium Level 8.6, Aspartate Amino Transf (AST/SGOT) 19 , Alanine Aminotransferase (ALT/SGPT) 15, Alkaline Phosphatase 63, Total Bilirubin 0.5, Total Protein 5.6 L, Albumin 2.7 L CASEY GAMING MD Feb 13, 2017 16:47
[2017-02-13 18:50] VITALS: BP 182/78
[2017-02-13] MEDS: MORPHINE 15 MG SA TAB PO SCH (20:57)
[2017-02-13] MEDS: LEVEMIR (INSULIN DETEMIR) 1 UNITS/0.01ML SC SCH (20:59)
[2017-02-13] MEDS ORDERED: oxyCODONE 15 MG CR TAB PO SCH (21:00)
[2017-02-13 22:00] VITALS: BP 126/58
[2017-02-13] MEDS: traMADol 50 MG TAB PO PRN (22:38)
[2017-02-14 06:00] VITALS: BP 126/58
[2017-02-14] MEDS: CIPROFLOXACIN 500 MG TAB PO SCH ×2 (06:02→17:44)
[2017-02-14] MEDS: metroNIDAZOLE (FLAGYL) 500 MG TAB PO SCH ×3 (06:02→21:14)
[2017-02-14 06:53] LABS: MEAN CORPUSCULAR HGB CONC 33.3 g/dl (32.0-36.5); MEAN CORPUSCULAR VOLUME 102.2 fl (80.0-96.0); RED CELL DISTRIBUTION WIDTH 14.2 % (11.5-14.5); WHITE BLOOD COUNT 2.8 K/mm3 (4.0-10.0)
[2017-02-14 07:08] LABS: ALBUMIN 3.2 GM/DL (3.2-5.2); ALBUMIN/GLOBULIN RATIO 1.07 (1.00-1.93); ALKALINE PHOSPHATASE 80 U/L (45-117); ALT/SGPT 23 U/L (12-78); ANION GAP 6 MEQ/L (8-16); AST/SGOT 25 U/L (15-37); BILIRUBIN,TOTAL 0.6 MG/DL (0.2-1.0); BLOOD UREA NITROGEN 27 MG/DL (7-18); CALCIUM LEVEL 8.6 MG/DL (8.5-10.1); CARBON DIOXIDE LEVEL 25 MEQ/L (21-32); CHLORIDE LEVEL 111 MEQ/L (98-107); CREATININE FOR GFR 1.02 MG/DL (0.55-1.02); GLOMERULAR FILTRATION RATE > 60.0 (>51); GLUCOSE, FASTING 149 MG/DL (70-105); MAGNESIUM LEVEL 2.1 MG/DL (1.8-2.4); POTASSIUM SERUM 4.7 MEQ/L (3.5-5.1); SODIUM LEVEL 142 MEQ/L (136-145); TOTAL PROTEIN 6.2 GM/DL (6.4-8.2)
[2017-02-14] MEDS: CETIRIZINE (ZyrTEC) 10 MG TAB PO SCH (08:59)
[2017-02-14] MEDS: HumaLOG INSULIN (NovoLOG) PER UNIT SC SCH ×3 (08:59→17:45)
[2017-02-14] MEDS: OMEPRAZOLE 20 MG CAP PO SCH (08:59)
[2017-02-14] MEDS: **hydrALAZINE HCL** 25 MG TAB PO SCH ×4 (08:59→21:15)
[2017-02-14] MEDS: MONTELUKAST 10 MG TAB PO SCH (08:59)
[2017-02-14] MEDS: LACTULOSE 20 GM/30 ML SYRUP UD PO SCH ×4 (08:59→21:14)
[2017-02-14] MEDS: rOPINIRole 1MG TAB PO SCH ×2 (09:00→21:12)
[2017-02-14] MEDS: GABAPENTIN 300 MG CAP PO SCH ×3 (09:00→21:12)
[2017-02-14] MEDS: CARVedilol 12.5 MG TAB PO SCH ×2 (09:00→21:13)
[2017-02-14] MEDS: rifAXIMin 550 MG TAB (XIFAXAN) PO SCH ×2 (09:00→21:12)
[2017-02-14] MEDS: buPROPion **XL** TABLET 150MG (WELLBUTRIN XL) PO SCH (09:00)
[2017-02-14] MEDS: MAGNESIUM OXIDE 400 MG TAB (MAG-OX) PO SCH (09:00)
[2017-02-14] MEDS: FUROSEMIDE 40 MG TAB PO SCH (09:01)
[2017-02-14] MEDS: ASPIRIN 81 MG ENTERIC TAB PO SCH (09:01)
[2017-02-14] MEDS: MORPHINE 15 MG SA TAB PO SCH ×2 (09:01→21:14)
--- NOTE | 2017-02-14 13:21 | IPNPDOC ---
Subjective Date Seen The patient was seen on 02/14/17. Subjective Chief Complaint/HPI Patient seen and examined at the bedside. States that she is feeling better today and that her back pain is much better controlled on the current long- acting morphine. Objective Physical Examination General Exam: Positive: Alert, Cooperative, No Acute Distress, Other (morbidly obese female resting in bed) ENT Exam: Positive: Atraumatic, Mucous membr. moist/pink Neck Exam: Negative: JVD Chest Exam: Positive: Clear to auscultation, Normal air movement Heart Exam: Positive: Rate Normal, Normal S1, Normal S2 Abdomen Exam: Positive: Soft, Negative: Tenderness Extremity Exam: Positive: Swelling (2+ pitting edema in the lower extremities B /L), Negative: Tenderness Psych Exam: Positive: Oriented x 3 Assessment /Plan Plan/VTE VTE Prophylaxis Ordered?: Yes Plan RUQ Abdominal Pain 2/[address] Abd/Pel noted Cont PO Flagyl/Cipro Patient tolerating by mouth diet at this time WBC not elevated, Afebrile We will cont to monitor the patient's progress Hyperammonemia from underlying Liver Disease Serum Ammonia level noted to be 167 on admission--this has downtrended since Mentation is intact on examination Will continue the patient on Lactulose and Rifaximin 550mg BID We will continue to monitor the patient's Ammonia level Acute kidney injury likely 2/2 Volume Depletion, decreased PO Intake, and concomitant use of Diuretic Therapy, resolved Serum Creatinine at baseline Lower Extremity Edema 2/2 DD CHF 2D ECHO from 10/2016 suggestive of Stage 2 DD, Moderate Pulm Htn We will continue Lasix 40mg daily--additional dose of 40mg at night has been added due to lower extremity swelling No SOB, or crackles noted on exam We will cont to monitor fluid status Insulin dependent diabetes mellitus We will continue Levemir Insulin sliding scale for additional coverage Non-Alcoholic Steatohepatitis, Hypoalbuminemia INR wnl, LFTs wnl Follows with GI Dr. Oates in [place], [place] area HTN (hypertension), stable Cont current regimen Pancytopenia likely 2/2 Chronic Liver Disease Stable with no indication for transfusion at this time Asthma, stable Continue albuterol when necessary Restless leg syndrome Continue ropinirole Chronic pain meds Continue as ordered Have ordered supportive treatment with K-Pad, increased gabapentin dose for back pain Pain mgmt consult appreciated Anxiety, depression Continue Bupropion DVT prophylaxis SCDs/TEDs VS, I&O, 24H, [facility] Vital Signs/I&O Vital Signs Date Time Temp Pulse Resp B/P (MAP) Pulse Ox O2 Delivery O2 Flow Rate FiO2 02/14/17 09:01 18 02/14/17 09:00 82 126/58 02/14/17 07:30 Room Air 02/14/17 06:00 97.4 95 I&O- Last 24 Hours up to 6 AM 02/14/17 06:00 Intake Total 1200 ml Output Total 900 ml Balance 300 ml Laboratory Data 24H LABS Laboratory Tests 2 02/13/17 16:31: Bedside Glucose (Misc Panel) 201H 02/13/17 20:50: Bedside Glucose (Misc Panel) 216H 02/14/17 06:20: Anion Gap 6L, Glomerular Filtration Rate > 60.0, Blood Urea Nitrogen 27H, Creatinine 1.02, Sodium Level 142, Potassium Level 4.7, Chloride Level 111H, Carbon Dioxide Level 25, Calcium Level 8.6, Aspartate Amino Transf (AST/SGOT) 25 , Alanine Aminotransferase (ALT/SGPT) 23, Alkaline Phosphatase 80, Total Bilirubin 0.6, Total Protein 6.2L, Albumin 3.2, Magnesium Level 2.1, Ammonia 55H , Albumin/Globulin Ratio 1.07 CBC/BMP Laboratory Tests 02/14/17 06:20 Red Blood Count 3.11 L, Mean Corpuscular Volume 102.2 H, Mean Corpuscular Hemoglobin 34.0 H, Mean Corpuscular Hemoglobin Concent 33.3, Red Cell Distribution Width 14.2, Calcium Level 8.6, Aspartate Amino Transf (AST/SGOT) 25 , Alanine Aminotransferase (ALT/SGPT) 23, Alkaline Phosphatase 80, Total Bilirubin 0.6, Total Protein 6.2 L, Albumin 3.2 CASEY GAMING MD Feb 14, 2017 13:21
[2017-02-14 14:00] VITALS: BP 140/63
--- NOTE | 2017-02-14 14:54 | REP ---
CT of the abdomen pelvis without IV or bowel contrast: Comparison is 2016. The visualized lung go are unremarkable. There is diffuse soft tissue edema throughout the subcutaneous soft tissues compatible with anasarca. This is unchanged. There is no ascites. The hepatic parenchyma is homogeneous. There are surgical clips in the gallbladder fossa. The pancreas is unremarkable. The spleen is homogeneous and slightly enlarged, unchanged. The adrenals and kidneys are unremarkable. There is no hydronephrosis. There is a calculus near the hilus of the right kidney, likely vascular atheroma. This is unchanged. The abdominal aorta is unremarkable. There is no periaortic hematoma. There is no bowel distension or wall thickening. There is a fat-containing umbilical hernia, unchanged. Pelvis: There is no ascites. The uterus and adnexa are unremarkable. The bladder is unremarkable. The pelvic bowel loops are unremarkable. There is multilevel degenerative disc disease in the lumbar spine. Impression: Diffuse edema throughout the subcutaneous fat of the abdomen and pelvis compatible with anasarca. There is no ascites or adenopathy. There is no bowel distension or obstruction. No inflammatory changes. No adenopathy or mass. No hydronephrosis. Abdominal aorta is unremarkable. There is no pneumoperitoneum. There is a fat-containing umbilical hernia. Lumbar spine. Multilevel degenerative disc disease. Signed by Pedro Pablo Agarwal MD 02/14/2017 02:45 P
[2017-02-14] MEDS: MORPHINE 2 MG/ML 1ML SYRINGE IV PRN (15:41)
[2017-02-14] MEDS ORDERED: FUROSEMIDE 40 MG TAB PO ONE (21:00)
[2017-02-14 22:00] VITALS: BP 173/82
[2017-02-14] MEDS: LEVEMIR (INSULIN DETEMIR) 1 UNITS/0.01ML SC SCH (22:41)
[2017-02-15] MEDS: MORPHINE 2 MG/ML 1ML SYRINGE IV PRN (00:37)
[2017-02-15 05:53] LABS: MEAN CORPUSCULAR HEMOGLOBIN 34.5 pg (27.0-33.0); MEAN CORPUSCULAR HGB CONC 33.2 g/dl (32.0-36.5); MEAN CORPUSCULAR VOLUME 103.9 fl (80.0-96.0); WHITE BLOOD COUNT 2.4 K/mm3 (4.0-10.0)
[2017-02-15] MEDS: CIPROFLOXACIN 500 MG TAB PO SCH ×2 (05:53→18:41)
[2017-02-15] MEDS: metroNIDAZOLE (FLAGYL) 500 MG TAB PO SCH ×3 (05:54→22:27)
[2017-02-15 06:00] VITALS: BP 134/63
[2017-02-15 06:07] LABS: ALBUMIN 2.8 GM/DL (3.2-5.2); ALBUMIN/GLOBULIN RATIO 0.97 (1.00-1.93); BILIRUBIN,TOTAL 0.4 MG/DL (0.2-1.0); CALCIUM LEVEL 7.6 MG/DL (8.5-10.1); CREATININE FOR GFR 1.08 MG/DL (0.55-1.02); GLOMERULAR FILTRATION RATE 57.2 (>51); POTASSIUM SERUM 4.2 MEQ/L (3.5-5.1); TOTAL PROTEIN 5.7 GM/DL (6.4-8.2)
[2017-02-15] MEDS: LACTULOSE 20 GM/30 ML SYRUP UD PO SCH ×4 (08:54→21:00)
[2017-02-15] MEDS: MAGNESIUM OXIDE 400 MG TAB (MAG-OX) PO SCH (08:54)
[2017-02-15] MEDS: buPROPion **XL** TABLET 150MG (WELLBUTRIN XL) PO SCH (08:55)
[2017-02-15] MEDS: rOPINIRole 1MG TAB PO SCH ×2 (08:55→22:29)
[2017-02-15] MEDS: MONTELUKAST 10 MG TAB PO SCH (08:55)
[2017-02-15] MEDS: CARVedilol 12.5 MG TAB PO SCH ×2 (08:55→21:00)
[2017-02-15] MEDS: OMEPRAZOLE 20 MG CAP PO SCH (08:56)
[2017-02-15] MEDS: rifAXIMin 550 MG TAB (XIFAXAN) PO SCH ×2 (08:56→22:26)
[2017-02-15] MEDS: ASPIRIN 81 MG ENTERIC TAB PO SCH (08:56)
[2017-02-15] MEDS: **hydrALAZINE HCL** 25 MG TAB PO SCH ×4 (08:56→22:28)
[2017-02-15] MEDS: CETIRIZINE (ZyrTEC) 10 MG TAB PO SCH (08:56)
[2017-02-15] MEDS: GABAPENTIN 300 MG CAP PO SCH ×3 (08:57→22:29)
[2017-02-15] MEDS: MORPHINE 15 MG SA TAB PO SCH ×2 (08:58→22:29)
[2017-02-15] MEDS: HumaLOG INSULIN (NovoLOG) PER UNIT SC SCH ×3 (08:59→17:30)
[2017-02-15] MEDS: FUROSEMIDE 40 MG/4 ML VIAL (J1940) IV SCH ×2 (09:00→18:42)
[2017-02-15 14:00] VITALS: BP 150/80
--- NOTE | 2017-02-15 14:47 | IPNPDOC ---
Subjective Date Seen The patient was seen on 02/15/17. Subjective Chief Complaint/HPI Patient seen and examined at the bedside this morning. States that she is concerned that she is building fluid up again in her lower extremities and lower abdominal area. She denies any shortness of breath or chest pain at this time. Notes that her back pain is better controlled today. Does not offer any other acute complaints. Objective Physical Examination General Exam: Positive: Alert, Cooperative, No Acute Distress, Other (morbidly obese female resting in bed) ENT Exam: Positive: Atraumatic, Mucous membr. moist/pink Neck Exam: Negative: JVD Chest Exam: Positive: Clear to auscultation, Normal air movement Heart Exam: Positive: Rate Normal, Normal S1, Normal S2 Abdomen Exam: Positive: Soft, Negative: Tenderness Extremity Exam: Positive: Swelling (2+ pitting edema in the lower extremities B /L), Negative: Tenderness Psych Exam: Positive: Oriented x 3 Assessment /Plan Plan/VTE VTE Prophylaxis Ordered?: Yes Plan Lower Extremity Edema 2/2 DD CHF 2D ECHO from 10/2016 suggestive of Stage 2 DD, Moderate Pulm Htn Lasix dose increased to 40mg IV BID-- we will strictly monitor I/O's, and increase diuretic dosing as renally tolerated No SOB, or crackles noted on exam We will cont to monitor fluid status RUQ Abdominal Pain 2/[address] Abd/Pel noted Cont PO Flagyl/Cipro Patient tolerating by mouth diet at this time WBC not elevated, Afebrile We will cont to monitor the patient's progress Hyperammonemia from underlying Liver Disease Serum Ammonia level noted to be 167 on admission--this has downtrended since Mentation is intact on examination Will continue the patient on Lactulose and Rifaximin 550mg BID We will continue to monitor the patient's Ammonia level Acute kidney injury likely 2/2 Volume Depletion, decreased PO Intake, and concomitant use of Diuretic Therapy, resolved Serum Creatinine at baseline Insulin dependent diabetes mellitus We will continue Levemir Insulin sliding scale for additional coverage Non-Alcoholic Steatohepatitis, Hypoalbuminemia INR wnl, LFTs wnl Follows with GI Dr. Oates in [place], [place] area HTN (hypertension), stable Cont current regimen Pancytopenia likely 2/2 Chronic Liver Disease Stable with no indication for transfusion at this time Asthma, stable Continue albuterol when necessary Restless leg syndrome Continue ropinirole Chronic pain meds Continue as ordered Have ordered supportive treatment with K-Pad, increased gabapentin dose for back pain Pain mgmt consult appreciated Anxiety, depression Continue Bupropion DVT prophylaxis SCDs/TEDs Dispo--Diuretic therapy up-titrated to optimize volume status (2+ lower extremity edema). Will monitor response and adjust dosing accordingly. VS, I&O, 24H, Fishbone Vital Signs/I&O Vital Signs Date Time Temp Pulse Resp B/P (MAP) Pulse Ox O2 Delivery O2 Flow Rate FiO2 02/15/17 14:32 134/63 02/15/17 08:58 72 20 Room Air 02/15/17 06:00 99.3 98 I&O- Last 24 Hours up to 6 AM 02/15/17 06:00 Intake Total 1800 ml Output Total 1300 ml Balance 500 ml Laboratory Data 24H LABS Laboratory Tests 2 02/14/17 17:13: Bedside Glucose (Misc Panel) 365H 02/14/17 21:21: Bedside Glucose (Misc Panel) 143H 02/15/17 05:31: Anion Gap 7L, Glomerular Filtration Rate 57.2, Blood Urea Nitrogen 25H, Creatinine 1.08H, Sodium Level 146H, Potassium Level 4.2, Chloride Level 114H, Carbon Dioxide Level 25, Calcium Level 7.6L, Aspartate Amino Transf (AST/SGOT) 22, Alanine Aminotransferase (ALT/SGPT) 18, Alkaline Phosphatase 67, Total Bilirubin 0.4, Total Protein 5.7L, Albumin 2.8L, Magnesium Level 2.0, Albumin/ Globulin Ratio 0.97L CBC/BMP Laboratory Tests 02/15/17 05:31 Red Blood Count 2.82 L, Mean Corpuscular Volume 103.9 H, Mean Corpuscular Hemoglobin 34.5 H, Mean Corpuscular Hemoglobin Concent 33.2, Red Cell Distribution Width 14.0, Calcium Level 7.6 L, Aspartate Amino Transf (AST/SGOT) 22, Alanine Aminotransferase (ALT/SGPT) 18, Alkaline Phosphatase 67, Total Bilirubin 0.4, Total Protein 5.7 L, Albumin 2.8 L CASEY GAMING MD Feb 15, 2017 14:47
[2017-02-15 22:00] VITALS: BP 120/59
[2017-02-15] MEDS: LEVEMIR (INSULIN DETEMIR) 1 UNITS/0.01ML SC SCH (22:26)
[2017-02-15] MEDS: clonazePAM 1 MG TAB PO PRN (22:35)
[2017-02-16 06:00] VITALS: BP 132/60
[2017-02-16] MEDS: metroNIDAZOLE (FLAGYL) 500 MG TAB PO SCH ×3 (06:53→20:36)
[2017-02-16] MEDS: CIPROFLOXACIN 500 MG TAB PO SCH ×2 (06:53→18:00)
[2017-02-16] MEDS: HumaLOG INSULIN (NovoLOG) PER UNIT SC SCH ×3 (07:30→17:30)
[2017-02-16 08:12] LABS: MEAN CORPUSCULAR HEMOGLOBIN 34.2 pg (27.0-33.0); MEAN CORPUSCULAR HGB CONC 33.2 g/dl (32.0-36.5); RED CELL DISTRIBUTION WIDTH 13.9 % (11.5-14.5); WHITE BLOOD COUNT 2.4 K/mm3 (4.0-10.0)
[2017-02-16 08:17] LABS: ALBUMIN 2.8 GM/DL (3.2-5.2); ALBUMIN/GLOBULIN RATIO 0.97 (1.00-1.93); ALKALINE PHOSPHATASE 66 U/L (45-117); ALT/SGPT 17 U/L (12-78); ANION GAP 8 MEQ/L (8-16); AST/SGOT 26 U/L (15-37); BILIRUBIN,TOTAL 0.5 MG/DL (0.2-1.0); BLOOD UREA NITROGEN 24 MG/DL (7-18); CARBON DIOXIDE LEVEL 24 MEQ/L (21-32); CHLORIDE LEVEL 112 MEQ/L (98-107); CREATININE FOR GFR 0.95 MG/DL (0.55-1.02); GLOMERULAR FILTRATION RATE > 60.0 (>51); GLUCOSE, FASTING 134 MG/DL (70-105); MAGNESIUM LEVEL 1.8 MG/DL (1.8-2.4); POTASSIUM SERUM 4.1 MEQ/L (3.5-5.1); SODIUM LEVEL 144 MEQ/L (136-145); TOTAL PROTEIN 5.7 GM/DL (6.4-8.2)
[2017-02-16] MEDS: MONTELUKAST 10 MG TAB PO SCH (09:00)
[2017-02-16] MEDS: OMEPRAZOLE 20 MG CAP PO SCH (09:00)
[2017-02-16] MEDS: GABAPENTIN 300 MG CAP PO SCH ×3 (09:00→20:33)
[2017-02-16] MEDS: **hydrALAZINE HCL** 25 MG TAB PO SCH ×4 (09:00→20:36)
[2017-02-16] MEDS: CETIRIZINE (ZyrTEC) 10 MG TAB PO SCH (09:00)
[2017-02-16] MEDS: MAGNESIUM OXIDE 400 MG TAB (MAG-OX) PO SCH (09:00)
[2017-02-16] MEDS: MORPHINE 15 MG SA TAB PO SCH ×2 (09:00→20:34)
[2017-02-16] MEDS: rifAXIMin 550 MG TAB (XIFAXAN) PO SCH ×2 (09:00→20:36)
[2017-02-16] MEDS: rOPINIRole 1MG TAB PO SCH ×2 (09:00→20:34)
[2017-02-16] MEDS: CARVedilol 12.5 MG TAB PO SCH ×2 (09:00→20:32)
[2017-02-16] MEDS: LACTULOSE 20 GM/30 ML SYRUP UD PO SCH ×4 (09:00→20:31)
[2017-02-16] MEDS: buPROPion **XL** TABLET 150MG (WELLBUTRIN XL) PO SCH (09:00)
[2017-02-16] MEDS: ASPIRIN 81 MG ENTERIC TAB PO SCH (09:00)
[2017-02-16] MEDS: FUROSEMIDE 40 MG/4 ML VIAL (J1940) IV SCH ×4 (12:00→20:30)
--- NOTE | 2017-02-16 12:16 | IPNPDOC ---
Subjective Date Seen The patient was seen on 02/16/17. Subjective Chief Complaint/HPI Patient seen and examined at the bedside. States that she still has a fair amount of fluid in her lower extremities, but notes that she is able to ambulate without any shortness of breath. Denies any other acute complaints at this time. Objective Physical Examination General Exam: Positive: Alert, Cooperative, No Acute Distress, Other (morbidly obese female resting in bed) ENT Exam: Positive: Atraumatic, Mucous membr. moist/pink Neck Exam: Negative: JVD Chest Exam: Positive: Clear to auscultation, Normal air movement Heart Exam: Positive: Rate Normal, Normal S1, Normal S2 Abdomen Exam: Positive: Soft, Negative: Tenderness Extremity Exam: Positive: Swelling (3+ pitting edema in the lower extremities B /L) Psych Exam: Positive: Oriented x 3 Assessment /Plan Plan/VTE VTE Prophylaxis Ordered?: Yes Plan Lower Extremity Edema 2/2 DD CHF 2D ECHO from 10/2016 suggestive of Stage 2 DD, Moderate Pulm Htn Lasix dose increased to 40mg IV q4h-- we will strictly monitor I/O's No SOB, or crackles noted on exam We will cont to monitor fluid status RUQ Abdominal Pain 2/[address] Abd/Pel noted Cont PO Flagyl/Cipro Patient tolerating by mouth diet at this time WBC not elevated, Afebrile We will cont to monitor the patient's progress Hyperammonemia from underlying Liver Disease Serum Ammonia level noted to be 167 on admission--this has downtrended since Mentation is intact on examination Will continue the patient on Lactulose and Rifaximin 550mg BID We will continue to monitor the patient's Ammonia level Acute kidney injury likely 2/2 Volume Depletion, decreased PO Intake, and concomitant use of Diuretic Therapy, resolved Serum Creatinine at baseline Insulin dependent diabetes mellitus We will continue Levemir Insulin sliding scale for additional coverage Non-Alcoholic Steatohepatitis, Hypoalbuminemia INR wnl, LFTs wnl Follows with GI Dr. Oates in [place], [place] area HTN (hypertension), stable Cont current regimen Pancytopenia likely 2/2 Chronic Liver Disease Stable with no indication for transfusion at this time Asthma, stable Continue albuterol when necessary Restless leg syndrome Continue ropinirole Chronic pain meds Continue as ordered Have ordered supportive treatment with K-Pad, increased gabapentin dose for back pain Pain mgmt consult appreciated Anxiety, depression Continue Bupropion DVT prophylaxis SCDs/TEDs Dispo--Diuretic therapy up-titrated to optimize volume status (3+ lower extremity edema). Will monitor response and adjust dosing accordingly. VS, I&O, 24H, Fishbone Vital Signs/I&O Vital Signs Date Time Temp Pulse Resp B/P (MAP) Pulse Ox O2 Delivery O2 Flow Rate FiO2 02/16/17 06:00 98.6 80 20 132/60 (84) 92 Room Air I&O- Last 24 Hours up to 6 AM 02/16/17 05:59 Intake Total 1440 ml Output Total 3325 ml Balance -1885 ml Laboratory Data 24H LABS Laboratory Tests 2 02/15/17 16:51: Bedside Glucose (Misc Panel) 169H 02/15/17 20:45: Bedside Glucose (Misc Panel) 184H 02/16/17 07:32: Anion Gap 8, Glomerular Filtration Rate > 60.0, Blood Urea Nitrogen 24H, Creatinine 0.95, Sodium Level 144, Potassium Level 4.1, Chloride Level 112H, Carbon Dioxide Level 24, Calcium Level 8.0L, Aspartate Amino Transf (AST/SGOT) 26, Alanine Aminotransferase (ALT/SGPT) 17, Alkaline Phosphatase 66, Total Bilirubin 0.5, Total Protein 5.7L, Albumin 2.8L, Magnesium Level 1.8, Albumin/ Globulin Ratio 0.97L CBC/BMP Laboratory Tests 02/16/17 07:32 Red Blood Count 2.85 L, Mean Corpuscular Volume 103.0 H, Mean Corpuscular Hemoglobin 34.2 H, Mean Corpuscular Hemoglobin Concent 33.2, Red Cell Distribution Width 13.9, Calcium Level 8.0 L, Aspartate Amino Transf (AST/SGOT) 26, Alanine Aminotransferase (ALT/SGPT) 17, Alkaline Phosphatase 66, Total Bilirubin 0.5, Total Protein 5.7 L, Albumin 2.8 L CASEY GAMING MD Feb 16, 2017 12:16
[2017-02-16 14:00] VITALS: BP 143/65
[2017-02-16] MEDS: LEVEMIR (INSULIN DETEMIR) 1 UNITS/0.01ML SC SCH (20:31)
[2017-02-16] MEDS: clonazePAM 1 MG TAB PO PRN (20:48)
[2017-02-16 22:00] VITALS: BP 138/62
[2017-02-17] MEDS: FUROSEMIDE 40 MG/4 ML VIAL (J1940) IV SCH ×3 (00:33→08:00)
[2017-02-17 06:00] VITALS: BP 110/54
[2017-02-17] MEDS: CIPROFLOXACIN 500 MG TAB PO SCH ×2 (06:14→17:14)
[2017-02-17] MEDS: metroNIDAZOLE (FLAGYL) 500 MG TAB PO SCH ×3 (06:14→21:20)
[2017-02-17] MEDS: traMADol 50 MG TAB PO PRN (06:19)
[2017-02-17 07:07] LABS: MEAN CORPUSCULAR HEMOGLOBIN 34.6 pg (27.0-33.0); MEAN CORPUSCULAR HGB CONC 33.5 g/dl (32.0-36.5); MEAN CORPUSCULAR VOLUME 103.4 fl (80.0-96.0); WHITE BLOOD COUNT 2.4 K/mm3 (4.0-10.0)
[2017-02-17 07:29] LABS: ALBUMIN 2.9 GM/DL (3.2-5.2); ALBUMIN/GLOBULIN RATIO 1.07 (1.00-1.93); BILIRUBIN,TOTAL 0.4 MG/DL (0.2-1.0); CALCIUM LEVEL 8.3 MG/DL (8.5-10.1); CREATININE FOR GFR 1.12 MG/DL (0.55-1.02); GLOMERULAR FILTRATION RATE 54.8 (>51); MAGNESIUM LEVEL 1.8 MG/DL (1.8-2.4); POTASSIUM SERUM 3.9 MEQ/L (3.5-5.1); TOTAL PROTEIN 5.6 GM/DL (6.4-8.2)
[2017-02-17] MEDS: rifAXIMin 550 MG TAB (XIFAXAN) PO SCH ×2 (08:30→21:20)
[2017-02-17] MEDS: MONTELUKAST 10 MG TAB PO SCH (08:30)
[2017-02-17] MEDS: CETIRIZINE (ZyrTEC) 10 MG TAB PO SCH (08:30)
[2017-02-17] MEDS: ASPIRIN 81 MG ENTERIC TAB PO SCH (08:30)
[2017-02-17] MEDS: MAGNESIUM OXIDE 400 MG TAB (MAG-OX) PO SCH (08:30)
[2017-02-17] MEDS: buPROPion **XL** TABLET 150MG (WELLBUTRIN XL) PO SCH (08:31)
[2017-02-17] MEDS: MORPHINE 15 MG SA TAB PO SCH ×2 (08:31→21:21)
[2017-02-17] MEDS: **hydrALAZINE HCL** 25 MG TAB PO SCH ×4 (08:31→21:19)
[2017-02-17] MEDS: GABAPENTIN 300 MG CAP PO SCH ×3 (08:32→21:19)
[2017-02-17] MEDS: LACTULOSE 20 GM/30 ML SYRUP UD PO SCH ×4 (08:32→21:21)
[2017-02-17] MEDS: rOPINIRole 1MG TAB PO SCH ×2 (08:32→21:19)
[2017-02-17] MEDS: HumaLOG INSULIN (NovoLOG) PER UNIT SC SCH ×3 (08:33→17:14)
[2017-02-17] MEDS: CARVedilol 12.5 MG TAB PO SCH ×2 (08:33→21:21)
[2017-02-17] MEDS: OMEPRAZOLE 20 MG CAP PO SCH (08:34)
--- NOTE | 2017-02-17 12:34 | REP ---
RENAL ULTRASOUND: Real-time sonographic evaluation of the kidneys performed. Kidneys are normal in size and echotexture, right kidney measuring 14.3 x 5.4 x 7.0 cm and left kidney 12.9 x 7.4 x 8.5 cm. There is no hydronephrosis bilaterally. Study is limited by patient body habitus. Small echogenic focus in the region of the left renal hilum is likely artifactual. No stones are seen on the recent CT of 02/14/2017. No gross renal mass is seen. Urinary bladder is not seen. IMPRESSION: No hydronephrosis bilaterally. Signed by Pedro Pablo Lu MD 02/17/2017 05:09 P
[2017-02-17 14:00] VITALS: BP 140/65
--- NOTE | 2017-02-17 20:12 | IPN ---
DATE: 02/17/2017 SUBJECTIVE: Patient seen and examined in the room today. Patient did complain of right flank pain today. Patient states she tried to get off the bed, and she will walk around the hallway. Denies any problems. OBJECTIVE: VITAL SIGNS: Temperature 98.1, pulse 77, respiratory rate 18, blood pressure 110/54, pulse ox 96% on room air. GENERAL: Morbidly obese. No sign of acute distress. Alert and oriented times three. HEENT: Normocephalic, atraumatic, extraocular movement grossly intact. CARDIOVASCULAR: Positive S1, S2. LUNGS: Clear to auscultation. ABDOMEN: Soft, non-tender. EXTREMITIES: positive for edema. No sign of cyanosis. LABORATORY DATA: WBC 2.4, hemoglobin 10.3, hematocrit 30.7, platelet count is 77. Sodium 145, potassium 3.l9, chloride 109, carbon dioxide 28, BUN 22, creatinine 1.12, glomerular filtration rate (GFR) is 54.8. Fasting glucose 114, calcium 8.3, magnesium 1.8, total bilirubin is 0.4. AST 27, ALT 18, alkaline phosphatase is 64, ammonia level is 65. BNP is 209, total protein 5.6, albumin 2.9. 1. Diverticulitis. Patient on Cipro and Flagyl. 2. CHAMPAGNE. Liver function was within normal limits. Patient is followed by Dr. Judie JOHNSTON, in [place]. 3. Elevated ammonia level secondary to CHAMPAGNE. On the day of admission, patient had ammonia level of 88. Patient's lactulose dose is being adjusted. We will continue to follow the patient's level. Patient also taking rifaximin. 4. Acute kidney injury. Previously patient presented with acute kidney injury. Also suspected due to the poor oral intake and also the diuretic. Patient's fluid status is being adjusted actively. Renal function resumed to normal range yesterday, however patient started to show worsening of renal function. This could be a sign that patient started having dehydration. Patient's input and output is being monitored. Patient did have significant net balance. Will hold the diuretic. Follow with renal function tumor. 5. Insulin dependent diabetes. On Levemir and sliding scale. 6. Hypertension. Continue current regimen. 7. Tracey cytopenia secondary to chronic liver disease. Continue to monitor. 8. Asthma. No exacerbation. Breathing treatments as needed. 9. Restless leg syndrome. Ropinirole. 10. Patient has chronic pain. Pain management has been consulted. Patient on gabapentin and conservative medical management. 11. Anxiety/depression. On bupropion. 12. Deep vein thrombosis prophylaxis, on thromboembolic deterrent stockings (TEDS) sequential and compression device. 13. Currently patient has thrombocytopenia. No anticoagulation is safe for the patient. MTDD
[2017-02-17] MEDS: LEVEMIR (INSULIN DETEMIR) 1 UNITS/0.01ML SC SCH (21:00)
[2017-02-17 22:00] VITALS: BP 177/89
[2017-02-18] MEDS: metroNIDAZOLE (FLAGYL) 500 MG TAB PO SCH ×3 (05:25→21:44)
[2017-02-18] MEDS: CIPROFLOXACIN 500 MG TAB PO SCH ×2 (05:25→17:22)
[2017-02-18 06:00] VITALS: BP 140/65
[2017-02-18 08:32] LABS: MEAN CORPUSCULAR HEMOGLOBIN 33.7 pg (27.0-33.0); MEAN CORPUSCULAR HGB CONC 33.7 g/dl (32.0-36.5); RED CELL DISTRIBUTION WIDTH 13.7 % (11.5-14.5); WHITE BLOOD COUNT 2.7 K/mm3 (4.0-10.0)
[2017-02-18 08:39] LABS: ALBUMIN 3.1 GM/DL (3.2-5.2); ALBUMIN/GLOBULIN RATIO 1.07 (1.00-1.93); BILIRUBIN,DIRECT 0.2 MG/DL (0.0-0.2); BILIRUBIN,TOTAL 0.5 MG/DL (0.2-1.0); CALCIUM LEVEL 8.5 MG/DL (8.5-10.1); CREATININE FOR GFR 1.1 MG/DL (0.55-1.02); POTASSIUM SERUM 4.1 MEQ/L (3.5-5.1)
[2017-02-18] MEDS: LACTULOSE 20 GM/30 ML SYRUP UD PO SCH ×5 (09:02→16:00)
[2017-02-18] MEDS: CARVedilol 12.5 MG TAB PO SCH ×2 (09:02→21:43)
[2017-02-18] MEDS: MORPHINE 15 MG SA TAB PO SCH ×2 (09:02→21:45)
[2017-02-18] MEDS: ASPIRIN 81 MG ENTERIC TAB PO SCH (09:02)
[2017-02-18] MEDS: CETIRIZINE (ZyrTEC) 10 MG TAB PO SCH (09:02)
[2017-02-18] MEDS: rOPINIRole 1MG TAB PO SCH ×2 (09:03→21:44)
[2017-02-18] MEDS: GABAPENTIN 300 MG CAP PO SCH ×3 (09:03→21:44)
[2017-02-18] MEDS: MAGNESIUM OXIDE 400 MG TAB (MAG-OX) PO SCH (09:03)
[2017-02-18] MEDS: rifAXIMin 550 MG TAB (XIFAXAN) PO SCH ×2 (09:03→21:44)
[2017-02-18] MEDS: **hydrALAZINE HCL** 25 MG TAB PO SCH ×4 (09:03→21:43)
[2017-02-18] MEDS: buPROPion **XL** TABLET 150MG (WELLBUTRIN XL) PO SCH (09:04)
[2017-02-18] MEDS: OMEPRAZOLE 20 MG CAP PO SCH (09:04)
[2017-02-18] MEDS: HumaLOG INSULIN (NovoLOG) PER UNIT SC SCH ×3 (09:04→17:23)
[2017-02-18] MEDS: MONTELUKAST 10 MG TAB PO SCH (09:04)
[2017-02-18] MEDS ORDERED: DICYCLOMINE 10 MG CAP PO PRN (10:15)
[2017-02-18] MEDS: FUROSEMIDE 40 MG TAB PO SCH (13:04)
[2017-02-18] MEDS ORDERED: NYSTATIN 100,000 UNITS/GM TOPICAL PWD 15 GM TOP PRN (18:30)
[2017-02-18] MEDS: traMADol 50 MG TAB PO PRN (19:16)
[2017-02-18] MEDS: LEVEMIR (INSULIN DETEMIR) 1 UNITS/0.01ML SC SCH (21:45)
[2017-02-18] MEDS: clonazePAM 1 MG TAB PO PRN (21:45)
[2017-02-18 22:00] VITALS: BP 164/72
[2017-02-19 06:00] VITALS: BP 128/60
[2017-02-19] MEDS: metroNIDAZOLE (FLAGYL) 500 MG TAB PO SCH ×2 (06:06→14:00)
[2017-02-19] MEDS: LACTULOSE 20 GM/30 ML SYRUP UD PO SCH ×8 (06:06→14:00)
[2017-02-19] MEDS: CIPROFLOXACIN 500 MG TAB PO SCH (06:06)
[2017-02-19 07:09] LABS: MEAN CORPUSCULAR HEMOGLOBIN 34.8 pg (27.0-33.0); MEAN CORPUSCULAR HGB CONC 34.6 g/dl (32.0-36.5); MEAN CORPUSCULAR VOLUME 100.6 fl (80.0-96.0); RED CELL DISTRIBUTION WIDTH 13.5 % (11.5-14.5); WHITE BLOOD COUNT 2.4 K/mm3 (4.0-10.0)
[2017-02-19 07:24] LABS: ANION GAP 8 MEQ/L (8-16); BLOOD UREA NITROGEN 22 MG/DL (7-18); CALCIUM LEVEL 7.8 MG/DL (8.5-10.1); CARBON DIOXIDE LEVEL 26 MEQ/L (21-32); CHLORIDE LEVEL 110 MEQ/L (98-107); CREATININE FOR GFR 0.99 MG/DL (0.55-1.02); GLOMERULAR FILTRATION RATE > 60.0 (>51); GLUCOSE, FASTING 137 MG/DL (70-105); SODIUM LEVEL 144 MEQ/L (136-145)
[2017-02-19] MEDS: HumaLOG INSULIN (NovoLOG) PER UNIT SC SCH ×2 (07:30→12:00)
[2017-02-19] MEDS: CETIRIZINE (ZyrTEC) 10 MG TAB PO SCH (09:45)
[2017-02-19] MEDS: rifAXIMin 550 MG TAB (XIFAXAN) PO SCH (09:45)
[2017-02-19] MEDS: OMEPRAZOLE 20 MG CAP PO SCH (09:45)
[2017-02-19] MEDS: GABAPENTIN 300 MG CAP PO SCH (09:45)
[2017-02-19] MEDS: CARVedilol 12.5 MG TAB PO SCH (09:46)
[2017-02-19] MEDS: **hydrALAZINE HCL** 25 MG TAB PO SCH ×2 (09:46→12:55)
[2017-02-19] MEDS: ASPIRIN 81 MG ENTERIC TAB PO SCH (09:47)
[2017-02-19] MEDS: MONTELUKAST 10 MG TAB PO SCH (09:47)
[2017-02-19] MEDS: FUROSEMIDE 40 MG TAB PO SCH (09:47)
[2017-02-19] MEDS: MAGNESIUM OXIDE 400 MG TAB (MAG-OX) PO SCH (09:47)
[2017-02-19] MEDS: buPROPion **XL** TABLET 150MG (WELLBUTRIN XL) PO SCH (09:47)
[2017-02-19] MEDS: rOPINIRole 1MG TAB PO SCH (09:47)
[2017-02-19] MEDS: MORPHINE 15 MG SA TAB PO SCH (09:48)
[2017-02-19] MEDS ORDERED: NYST10PW TOP (10:48)
[2017-02-19] MEDS ORDERED: GABA-282 PO (10:48)
[2017-02-19 12:55] VITALS: BP 128/60
--- NOTE | 2017-02-19 13:16 | IPN ---
DATE: 02/18/2017 SUBJECTIVE: The patient is seen and examined in the room today. The patient is still complaining about the lower extremity swelling. Her abdominal pain is improved with Bentyl. OBJECTIVE: VITAL SIGNS: Temperature 97.9, pulse 76, respirations 18, blood pressure is 140/65. Pulse oximetry is 93% on room air. GENERAL: Morbidly obese. No sign of acute distress. Alert and oriented times three. HEENT: Normocephalic, atraumatic. Extraocular motor grossly intact. CARDIOVASCULAR: Positive S1, S2. Regular rate. LUNGS: Clear to auscultation bilaterally. ABDOMEN: Soft, nontender, nondistended. EXTREMITIES: Positive for edema. No sign of cyanosis. LABORATORY DATA: WBC 2.7, hemoglobin 10.4, hematocrit 31, platelet count 82. Sodium 145, potassium 4.1, chloride 110, carbon dioxide 29, BUN 24, creatinine 1.1, GFR is 56, fasting glucose 176, calcium 8.5, total bilirubin 0.5, direct bilirubin 0.2, AST 28, ALT 19, alkaline phosphatase 67. Ammonia level 62. Total protein 6.0, albumin 3.1. ASSESSMENT AND PLAN: 1. Elevated ammonia level secondary to non-alcoholic steatohepatitis (CHAMPAGNE). The patient has been taking lactulose three times a day; however, with that regimen it is still very hard to decrease the patient's ammonia level even further. Currently the most recently ammonia level is 62. Discussed with the patient. We will try to start the patient's home regimen which is lactulose every one hour until she has more than four bowel movements. In that way we will try to determine if this regimen is effective for the patient's home use. 2. Acute kidney injury. The patient has been taking lactulose and Lasix for patient's elevated ammonia level and lower extremity swelling. The patient requires constant monitoring of the fluid status. Previously Lasix had to be temporarily on hold due to the acute kidney injury. However, even with one day of Lasix on hold, the patient has worsening lower extremity swelling. 3. Lower extremity swelling. We will start the patient on Lasix 40 mg by mouth daily. We will continue to monitor renal function. Continue to monitor sodium level. We also supplement medical intervention such as leg elevation and leg wrapping with Santiago bandage. 4. Diverticulitis. On Cipro and Flagyl. 5. Insulin-dependent diabetes. The patient is on sliding scale on Levemir. 6. Hypertension. Continue current regimen. 7. Pancytopenia secondary to chronic liver disease. Continue to monitor. 8. Asthma. No exacerbation. Continue breathing treatment as needed. 9. Restless leg syndrome. On ropinirole. 10. Chronic pain. Pain management has been consulted. The patient is on gabapentin and conservative medical management. 11. Anxiety/depression. On bupropion. 12. Deep venous thrombosis (DVT) prophylaxis. The patient currently has thrombocytopenia. No anticoagulation is ordered for this patient. The patient will have thromboembolism deterrent stockings (TEDs) and sequential compression devices.
--- NOTE | 2017-02-19 22:59 | DSES ---
DATE OF ADMISSION: 02/09/2017 DATE OF DISCHARGE: 02/19/2017 PRIMARY CARE PROVIDER: Dr. Eunice Nelson CONSULTANTS: Pain management. PROCEDURES: None. COMPLICATIONS: None. DISCHARGE DIAGNOSES: 1. Diverticulitis. 2. Elevated ammonia level secondary to nonalcoholic steatohepatitis (CHAMPAGNE). 3. Acute kidney injury. 4. Lower extremity swelling. 5. Insulin-dependent diabetes mellitus. 6. Hypertension. 7. Pancytopenia secondary to chronic liver disease. 8. Asthma. 9. Restless leg syndrome. 10. Chronic pain. 11. Anxiety/depression. 12. Anasarca. HOSPITALIZATION COURSE: Patient is a 51-year-old male who presented to [facility] on 02/09/2017 with poor appetite along with lower abdominal pain. During admission, patient CT scan found diverticulitis, and patient started on empiric antibiotic treatment. Patient was also started on intravenous (IV) support. During admission, patient was also found to have acute kidney injury treated with IV fluid. On admission, patient also noted to have elevated ammonia level. Patient's lactulose regimen is also being adjusted accordingly. There was acute exacerbation of chronic pain. Pain management has been consulted. With active adjustment of the diuretic lactulose according to patient's renal function and ammonia level, patient's symptoms eventually started to improve. Patient also had significant swelling, and so her diuretic is also being actively adjusted. On 02/19/2017 patient has returned to her baseline, and patient determined medically stable for discharge with recommendation to have more frequent followups with her gastrointestinal (GI) doctor and primary care doctor. OBJECTIVE: VITAL SIGNS: Temperature is 98.6, pulse is 83, respirations 18, blood pressure 128/60, pulse oximetry 96% on room air. LABORATORY DATA: WBC is 2.4, hemoglobin 9.8, hematocrit 28.4, platelet count is 79. Sodium is 144, potassium 4, chloride 110, carbon dioxide 26, BUN 22, creatinine 0.99, GFR greater than 60, fasting glucose 137, calcium 7.8, ammonia level 61. IMAGING STUDIES: Chest x-ray 02/09/2017 showed no acute disease. CT abdomen and pelvis without contrast on 02/09/2017 showed nonspecific edema in the right upper quadrant adjacent to the hepatic flexure of the colon, which may represent region of diverticulitis or other mild bowel inflammatory process. Stable appearance of hepatosplenomegaly. CT of the abdomen without contrast on 02/14/2017 showed diffuse edema throughout the subcutaneous fat of the abdomen and pelvis compatible with anasarca. No ascites or adenopathy. No inflammatory changes. No hydronephrosis. Renal ultrasound on 02/17/2017 showed no hydronephrosis bilaterally. DISCHARGE MEDICATIONS: - gabapentin 600 mg by mouth three times a day - nystatin powder topically twice a day as needed - albuterol two puff inhalation every 4 hours as needed - albuterol/ipratropium one inhalation four times a day as needed - Ellipta 200 mcg inhalation daily - aspirin 81 mg by mouth daily - bupropion 150 mg by mouth daily - carvedilol 25 mg by mouth twice a day - cetirizine 10 mg by mouth daily - clonazepam 1 gram by mouth at bedtime as needed for sleep - dicyclomine 10 mg by mouth four times a day - senna-S two tablets by mouth twice a day - fluticasone spray per nasally daily as needed for constipation - Lasix 40 mg by mouth daily - hydralazine 50 mg by mouth four times a day - hydromorphone 1 mg by mouth three times a day as needed - NovoLog 81 units subcutaneous before food - losartan 50 mg by mouth twice a day - magnesium oxide 400 mg by mouth daily - montelukast 10 mg by mouth daily - omeprazole 20 mg by mouth daily - Zofran 4 mg by mouth every 4 hours as needed - vitamin B2 at 100 mg by mouth - rifaximine 550 mg by mouth twice a day - Requip 2 mg by mouth twice a day - Toujeo SoloStar 54 units subcutaneous at bedtime DISCHARGE INSTRUCTIONS: Discontinue line. Discharge home. Activity as tolerated. Consistent-carbohydrate diet as tolerated. Patient should followup with her primary care provider in 1-2 weeks. Patient should followup with the GI specialist in 1-2 weeks. Patient recommended to followup with the pain clinic in 1 week. DISCHARGE CONDITION: Stable. DISCHARGE TIME: Greater than 30 minutes. MTDD
== END 2017-02-19 14:05 | disposition home or self-care (01) | DRG 423 ==
LOC: M ED 15:16 → M ED INP 20:38 → M MS4PR 02-10 20:14 → OBSVTOIN 02-11 11:28 → M MS5PR 02-13 18:51
PROVIDERS: ADMIT Internal Medicine; ATTEND Internal Medicine
DX: E72.20 Disorder of urea cycle metabolism, unspecified (principal); D61.818 Other pancytopenia; N17.9 Acute kidney failure, unspecified; K74.60 Unspecified cirrhosis of liver; I50.32 Chronic diastolic (congestive) heart failure; D69.6 Thrombocytopenia, unspecified; K57.92 Diverticulitis of intestine, part unspecified, without perforation or abscess without bleeding; K75.81 Nonalcoholic steatohepatitis (NASH); E66.01 Morbid (severe) obesity due to excess calories; E87.5 Hyperkalemia; Z68.43 Body mass index [BMI] 50.0-59.9, adult; I11.0 Hypertensive heart disease with heart failure; R10.9 Unspecified abdominal pain; E11.9 Type 2 diabetes mellitus without complications; J45.909 Unspecified asthma, uncomplicated; G89.29 Other chronic pain; G25.81 Restless legs syndrome; Z79.899 Other long term (current) drug therapy; K21.9 Gastro-esophageal reflux disease without esophagitis; G47.00 Insomnia, unspecified; F41.9 Anxiety disorder, unspecified; Z88.8 Allergy status to other drugs, medicaments and biological substances; M79.1 Myalgia; F32.9 Major depressive disorder, single episode, unspecified

== ENCOUNTER → 2017-02-09 | Outpatient (REF) | payer OTHER ==
[~2017-02-09] MED LIST changes: +EFFE37.527 PO; +FERR1TAB8 PO; +GABA-282 PO; +GABA600T PO; +HYDR-3911 PO; +HYDR50CA2 PO; +LASI40TA PO; +MECL-68 PO; +MIRA0.12 PO; +NYST10PW TOP; +NYST1POW9 TOP; +OXYC-517 PO; +OXYC10TA12 PO
[2017-02-09 13:23] LABS: MEAN CORPUSCULAR HEMOGLOBIN 34.2 pg (27.0-33.0); MEAN CORPUSCULAR HGB CONC 33.4 g/dl (32.0-36.5); MEAN CORPUSCULAR VOLUME 102.6 fl (80.0-96.0); RED CELL DISTRIBUTION WIDTH 13.4 % (11.5-14.5); WHITE BLOOD COUNT 2.8 K/mm3 (4.0-10.0)
[2017-02-09 13:46] LABS: ALBUMIN 3.1 GM/DL (3.2-5.2); ALBUMIN/GLOBULIN RATIO 1.07 (1.00-1.93); BILIRUBIN,TOTAL 0.5 MG/DL (0.2-1.0); CALCIUM LEVEL 8.3 MG/DL (8.5-10.1); CREATININE FOR GFR 1.3 MG/DL (0.55-1.02); GLOMERULAR FILTRATION RATE 46.2 (>51)
[2017-02-09 13:50] LABS: POTASSIUM SERUM 5.6 MEQ/L (3.5-5.1)
== END ==
LOC: M SFHCLERA 11:27
PROVIDERS: ATTEND Family Medicine
DX: K74.60 Unspecified cirrhosis of liver (principal)

== ENCOUNTER → 2017-02-26 | Outpatient (REF) | payer OTHER ==
[~2017-02-26] MED LIST changes: +EFFE37.527 PO; +FERR1TAB8 PO; +GABA-282 PO; +GABA600T PO; +HYDR-3911 PO; +HYDR50CA2 PO; +LASI40TA PO; +MECL-68 PO; +MIRA0.12 PO; +NYST10PW TOP; +NYST1POW9 TOP; +OXYC-517 PO; +OXYC10TA12 PO
[2017-02-26 17:55] LABS: ALBUMIN/GLOBULIN RATIO 1.07 (1.00-1.93); BILIRUBIN,TOTAL 0.5 MG/DL (0.2-1.0); CALCIUM LEVEL 7.8 MG/DL (8.5-10.1); CREATININE FOR GFR 1.13 MG/DL (0.55-1.02); GLOMERULAR FILTRATION RATE 54.3 (>51); MEAN CORPUSCULAR HGB CONC 33.8 g/dl (32.0-36.5); MEAN CORPUSCULAR VOLUME 100.7 fl (80.0-96.0); RED CELL DISTRIBUTION WIDTH 13.8 % (11.5-14.5); TOTAL PROTEIN 5.8 GM/DL (6.4-8.2); WHITE BLOOD COUNT 2.6 K/mm3 (4.0-10.0)
== END ==
LOC: M SFHCLERA 13:48
PROVIDERS: ATTEND Family Medicine
DX: K74.60 Unspecified cirrhosis of liver (principal)

== ENCOUNTER 2017-03-03 13:01 | Emergency (ER) | payer OTHER ==
[~2017-03-03] VITALS: Ht 182.9 cm; Wt 179.5 kg
[~2017-03-03 13:01] MED LIST changes: -EFFE37.527 PO; -FERR1TAB8 PO; -GABA600T PO; -HYDR-3911 PO; -HYDR50CA2 PO; -LASI40TA PO; -MECL-68 PO; -MIRA0.12 PO; -NYST1POW9 TOP; -OXYC-517 PO; -OXYC10TA12 PO
[2017-03-03] MEDS ORDERED: MORPHINE 4 MG/ML 1ML SYRINGE IV ONE (15:00)
[2017-03-03] MEDS ORDERED: ONDANSETRON 4MG/2ML VIAL (J2405) IV ONE (15:00)
[2017-03-03 15:03] LABS: ADD MANUAL DIFFER YES; MEAN CORPUSCULAR HEMOGLOBIN 33.8 pg (27.0-33.0); MEAN CORPUSCULAR HGB CONC 34.3 g/dl (32.0-36.5); MEAN CORPUSCULAR VOLUME 98.5 fl (80.0-96.0); PLATELET COUNT, AUTOMATED 111 k/mm3 (150-450); RED CELL DISTRIBUTION WIDTH 13.6 % (11.5-14.5); WHITE BLOOD COUNT 2.7 K/mm3 (4.0-10.0)
[2017-03-03 15:06] LABS: INR 1.16
[2017-03-03 15:17] LABS: ALBUMIN 3.1 GM/DL (3.2-5.2); ALKALINE PHOSPHATASE 59 U/L (45-117); ALT/SGPT 18 U/L (12-78); AMYLASE 36 U/L (25-115); ANION GAP 10 MEQ/L (8-16); AST/SGOT 17 U/L (15-37); BILIRUBIN,DIRECT 0.2 MG/DL (0.0-0.2); BILIRUBIN,TOTAL 0.6 MG/DL (0.2-1.0); BLOOD UREA NITROGEN 17 MG/DL (7-18); CALCIUM LEVEL 8.3 MG/DL (8.5-10.1); CARBON DIOXIDE LEVEL 22 MEQ/L (21-32); CHLORIDE LEVEL 112 MEQ/L (98-107); GLOMERULAR FILTRATION RATE > 60.0 (>51); GLUCOSE, FASTING 226 MG/DL (70-105); POTASSIUM SERUM 4.2 MEQ/L (3.5-5.1); SODIUM LEVEL 144 MEQ/L (136-145); TOTAL PROTEIN 6.2 GM/DL (6.4-8.2)
--- NOTE | 2017-03-03 15:17 | REP ---
LIMITED ABDOMINAL ULTRASOUND: HISTORY: Cirrhosis. Four quadrants of the abdomen were imaged. There is no definite ascites. IMPRESSION: There is no definite ascites. Signed by Jay Dueñas MD 03/03/2017 03:21 P
[2017-03-03 15:25] LABS: EOSINOPHILS 3 % (0-5)
--- NOTE | 2017-03-03 15:34 | REP ---
Chest two views HISTORY: Ascites Comparison: 02/09/2017 The lungs are clear. The heart is normal in size. The pulmonary vasculature is normal in appearance. The bony structure is intact. IMPRESSION: No acute disease. Signed by Jay Dueñas MD 03/03/2017 03:25 P
[2017-03-03] MEDS ORDERED: OXYC10TA12 PO (16:46)
[2017-03-03 17:25] VITALS: BP 169/87
--- NOTE | 2017-03-03 20:53 | ECGEPIP ---
Stationary ECG Study [facility] Test Date: 2017-03-03 Pat Name: WILLEM BALDWIN Department: Room: - Gender: F Animal Pathologist: daria : 1965 Requested By: HAMILTON Marshall Order Number: [id number] Reading MD: Maykel Carranza Measurements Intervals [place] Rate: 65 P: 46 CO: 179 QRS: 21 QRSD: 103 T: 32 QT: 428 QTc: 445 Interpretive Statements SINUS RHYTHM Poor R-wave progression. No significant change compared with 02/09/2017 at 2033 hours. Electronically Signed On 03-03-2017 20:53:10 EDT by Maykel Carranza
== END 2017-03-03 17:27 | disposition home or self-care (01) ==
LOC: M ED 13:01
DX: R60.0 Localized edema (principal); R53.83 Other fatigue; E11.9 Type 2 diabetes mellitus without complications; I10 Essential (primary) hypertension; J45.909 Unspecified asthma, uncomplicated; N28.9 Disorder of kidney and ureter, unspecified; Z87.442 Personal history of urinary calculi; G43.909 Migraine, unspecified, not intractable, without status migrainosus; M54.5 Low back pain; G47.30 Sleep apnea, unspecified; K74.60 Unspecified cirrhosis of liver; F41.9 Anxiety disorder, unspecified; Z79.899 Other long term (current) drug therapy; Z79.4 Long term (current) use of insulin; Z79.82 Long term (current) use of aspirin; Z79.51 Long term (current) use of inhaled steroids; Z88.8 Allergy status to other drugs, medicaments and biological substances; F17.210 Nicotine dependence, cigarettes, uncomplicated
CPT/HCPCS: 71020; 76705; 80048; 80076; 81001; 82140; 82150; 82550; 82553; 83605; 83690; 83880; 85025; 85610; 85730; 93000; 96374; 96375; 99284; J2405

== ENCOUNTER → 2017-03-11 | Outpatient (CLI) | payer OTHER ==
[~2017-03-11] MED LIST changes: +EFFE37.527 PO; +FERR1TAB8 PO; +GABA600T PO; +HYDR-3911 PO; +HYDR50CA2 PO; +KEFL500C17 PO; +LASI40TA PO; +MECL-68 PO; +MIRA0.12 PO; +NYST1POW9 TOP; +OXYC-517 PO; +OXYC10TA12 PO
== END ==
LOC: M PAIN 12:45
PROVIDERS: ATTEND Nurse Practitioner Family
DX: Z53.29 Procedure and treatment not carried out because of patient's decision for other reasons (principal)

== ENCOUNTER → 2017-03-19 | Outpatient (CLI) | payer OTHER | LOC: M PAIN 15:15 | PROVIDERS: ATTEND Nurse Practitioner Family | DX: Z53.29 Procedure and treatment not carried out because of patient's decision for other reasons (principal) ==

== ENCOUNTER → 2017-04-13 | Outpatient (REF) | payer OTHER ==
[2017-04-13 17:32] LABS: ALBUMIN 3.6 GM/DL (3.2-5.2); ALBUMIN/GLOBULIN RATIO 1.03 (1.00-1.93); BILIRUBIN,TOTAL 0.6 MG/DL (0.2-1.0); CALCIUM LEVEL 8.5 MG/DL (8.5-10.1); CREATININE FOR GFR 1.27 MG/DL (0.55-1.02); GLOMERULAR FILTRATION RATE 47.4 (>51); TOTAL PROTEIN 7.1 GM/DL (6.4-8.2)
[2017-04-13 20:18] LABS: MEAN CORPUSCULAR HEMOGLOBIN 31.9 pg (27.0-33.0); MEAN CORPUSCULAR HGB CONC 33.1 g/dl (32.0-36.5); MEAN CORPUSCULAR VOLUME 96.3 fl (80.0-96.0); RED CELL DISTRIBUTION WIDTH 13.4 % (11.5-14.5); WHITE BLOOD COUNT 2.6 10^3/uL (4.0-10.0)
[2017-04-13 21:03] LABS: EOSINOPHILS 3 % (0-5)
== END ==
LOC: M SFHCLERA 14:09
PROVIDERS: ATTEND Family Medicine
DX: I50.9 Heart failure, unspecified (principal)

== ENCOUNTER → 2017-04-27 | Outpatient (REF) | payer OTHER ==
[2017-04-27 16:53] LABS: BASO % 0.7 % (0.0-1.0); EOS # 0.1 10^3/uL (0.0-0.50); EOS % 4.2 % (0.0-3.0); IMMATURE GRANULOCYTE % 0.4 % (0-0); LYMPH % 36.6 % (24.0-44.0); MEAN CORPUSCULAR HEMOGLOBIN 31.2 pg (27.0-33.0); MEAN CORPUSCULAR HGB CONC 33.5 g/dl (32.0-36.5); MEAN CORPUSCULAR VOLUME 93.1 fl (80.0-96.0); MONO # 0.2 10^3/uL (0.0-0.8); MONO % 8.5 % (0.0-5.0); NEUTROPHILS # 1.4 10^3/uL (1.8-7.7); NEUTROPHILS % 49.6 % (36.0-66.0); PLATELET COUNT, AUTOMATED 103 10^3/uL (150-450); RED CELL DISTRIBUTION WIDTH 13.2 % (11.5-14.5); WHITE BLOOD COUNT 2.8 10^3/uL (4.0-10.0)
[2017-04-27 18:52] LABS: CALCIUM LEVEL 8.7 MG/DL (8.5-10.1); CREATININE FOR GFR 1.61 MG/DL (0.55-1.02); GLOMERULAR FILTRATION RATE 36.1 (>51); PERCENT SATURATION 25.6 % (13.2-45.0); POTASSIUM SERUM 4.6 MEQ/L (3.5-5.1)
== END ==
LOC: M SFHCLERA 11:50
PROVIDERS: ATTEND Family Medicine
DX: G25.81 Restless legs syndrome (principal)

== ENCOUNTER 2017-04-28 11:16 | Inpatient (IN) | payer OTHER ==
[~2017-04-28] VITALS: Ht 182.9 cm; Wt 160.0 kg
[~2017-04-28 11:16] MED LIST changes: -EFFE37.527 PO; -FERR1TAB8 PO; -GABA600T PO; -HYDR-3911 PO; -HYDR50CA2 PO; -KEFL500C17 PO; -LASI40TA PO; -MECL-68 PO; -MIRA0.12 PO; -NYST1POW9 TOP; -OXYC-517 PO
[2017-04-28] MEDS ORDERED: EFFE37.527 PO (11:30)
[2017-04-28] MEDS ORDERED: LACT10SO29 PO (11:40)
[2017-04-28] MEDS ORDERED: NS 1,000 ML IV ONE (13:30)
[2017-04-28 13:43] LABS: BASO % 0.8 % (0.0-1.0); EOS # 0.1 10^3/uL (0.0-0.50); EOS % 5.3 % (0.0-3.0); IMMATURE GRANULOCYTE % 0.4 % (0-0); LYMPH % 39.2 % (24.0-44.0); MEAN CORPUSCULAR HEMOGLOBIN 31.6 pg (27.0-33.0); MEAN CORPUSCULAR HGB CONC 33.9 g/dl (32.0-36.5); MEAN CORPUSCULAR VOLUME 93.4 fl (80.0-96.0); MONO # 0.2 10^3/uL (0.0-0.8); MONO % 7.2 % (0.0-5.0); NEUTROPHILS # 1.2 10^3/uL (1.8-7.7); NEUTROPHILS % 47.1 % (36.0-66.0); RED CELL DISTRIBUTION WIDTH 13.2 % (11.5-14.5); WHITE BLOOD COUNT 2.6 10^3/uL (4.0-10.0)
[2017-04-28 13:58] LABS: ALBUMIN 3.3 GM/DL (3.2-5.2); ALBUMIN/GLOBULIN RATIO 0.87 (1.00-1.93); ALKALINE PHOSPHATASE 91 U/L (45-117); ALT/SGPT 25 U/L (12-78); ANION GAP 7 MEQ/L (8-16); AST/SGOT 25 U/L (15-37); BILIRUBIN,DIRECT 0.2 MG/DL (0.0-0.2); BILIRUBIN,TOTAL 0.5 MG/DL (0.2-1.0); BLOOD UREA NITROGEN 50 MG/DL (7-18); CALCIUM LEVEL 8.4 MG/DL (8.5-10.1); CARBON DIOXIDE LEVEL 27 MEQ/L (21-32); CHLORIDE LEVEL 104 MEQ/L (98-107); CREATININE FOR GFR 1.52 MG/DL (0.55-1.02); GLOMERULAR FILTRATION RATE 38.5 (>51); GLUCOSE, FASTING 206 MG/DL (70-105); SODIUM LEVEL 138 MEQ/L (136-145); TOTAL PROTEIN 7.1 GM/DL (6.4-8.2)
[2017-04-28 13:59] LABS: PLATELET COUNT, AUTOMATED 83 10^3/uL (150-450)
[2017-04-28 14:00] LABS: IMMATURE PLATELET FRACTION % 4.1 % (0.0-9.6)
[2017-04-28 14:21] LABS: VENOUS BASE EXCESS 2.6 (-2.0-2.0); VENOUS O2 SATURATION 89.9 % (60.0-80.0); VENOUS PARTIAL PRESSURE CO2 40.9 mmHg (38.0-50.0); VENOUS PARTIAL PRESSURE O2 56.6 mmHg (30.0-50.0); VENOUS STANDARD HCO3 26.7 MEQ/L; VENOUS TOTAL CO2 28.3 MEQ/L (24.0-28.0)
--- NOTE | 2017-04-28 14:58 | REP ---
Chest x-ray: Two views. History: Altered mental status. Comparison study: March 03, 2017. Findings: The lungs are well inflated. There is an area of increased opacity in the right lower lobe which has a somewhat nodular appearance. This is new from the February 2017 study and an infiltrate is suspected. Lung go are otherwise clear. Pleural angles are sharp. Mild cardiomegaly is observed unchanged. There are clips in the upper abdomen. EKG electrodes are seen. There is a curvature in the thoracic spine unchanged. Impression: Somewhat nodular area of increased density in the right base, question new infiltrate. Follow-up chest x-ray recommended. Mild cardiac enlargement unchanged. Otherwise no acute disease. Signed by Robbie Carvalho MD 04/28/2017 05:44 P
[2017-04-28] MEDS ORDERED: FERR1TAB8 PO (15:19)
[2017-04-28] MEDS ORDERED: HYDR50CA2 PO (15:19)
[2017-04-28] MEDS ORDERED: ZOFR4TAB3 PO (15:19)
[2017-04-28] MEDS ORDERED: GABA600T PO (15:19)
[2017-04-28] MEDS ORDERED: OXYC-517 PO (15:19)
[2017-04-28] MEDS ORDERED: NYST1POW9 TOP (15:19)
[2017-04-28] MEDS ORDERED: MECL-68 PO (15:19)
[2017-04-28] MEDS ORDERED: HYDR-3911 PO (15:19)
[2017-04-28] MEDS ORDERED: LevoFLOXacin IV 750 MG in APPROPRIATE DILUENT 1 EA IV ONE (15:45)
[2017-04-28] MEDS ORDERED: hydrOXYzine 50 MG TAB PO PRN (16:15)
[2017-04-28] MEDS ORDERED: SODIUM CHLORIDE NASAL 0.65% SPRAY BTL (OCEAN) PRN (16:15)
[2017-04-28] MEDS ORDERED: DEXTROSE 50% 50 ML SYRINGE IV PRN (16:15)
[2017-04-28] MEDS ORDERED: ONDANSETRON 4 MG ORAL DISINTEGRATING TAB (S0181) PO PRN (16:15)
[2017-04-28] MEDS ORDERED: GLUCOSE 4 GM CHEW TABLET PO PRN (16:15)
[2017-04-28] MEDS ORDERED: NYSTATIN 100,000 UNITS/GM TOPICAL PWD 15 GM TOP PRN (16:15)
[2017-04-28] MEDS ORDERED: SENOKOT S TAB PO PRN (16:15)
[2017-04-28] MEDS ORDERED: MECLIZINE 25 MG TABLET PO PRN (16:15)
[2017-04-28] MEDS ORDERED: FLUTICASONE PROP 0.05% NASAL SPRAY 16 GM (FLONASE) PRN (16:15)
[2017-04-28] MEDS ORDERED: GLUCAGON FOR INJ 1 MG VIAL (J1610) SC PRN (16:15)
[2017-04-28] MEDS ORDERED: ONDANSETRON 4MG/2ML VIAL (J2405) IV PRN (16:15)
[2017-04-28] MEDS ORDERED: ALBUTEROL SULFATE 2.5 MG/0.5 ML INH NEB SOLN NEB PRN (16:30)
[2017-04-28 17:01] LABS: MAGNESIUM LEVEL 2.2 MG/DL (1.8-2.4)
--- NOTE | 2017-04-28 17:10 | HPE ---
DATE OF ADMISSION: 04/28/2017 PRIMARY CARE PROVIDER: Dr. Paulino HISTORY OF PRESENT ILLNESS: This patient is a 51-year-old female with a past medical history significant for liver cirrhosis from nonalcoholic steatohepatitis (CHAMPAGNE), pancytopenia, type 2 diabetes, hypertension, restless leg syndrome, diastolic congestive heart failure, gastroesophageal reflux disease (GERD), presented to [facility] 04/28/2017 for increased lethargy. The patient had recent visit with primary care provider. Laboratory tests were done. Later the test results came back for acute kidney injury and elevated ammonia levels. Therefore, the patient was instructed to come for [facility] for further evaluation. Per patient, the patient started noticing to have increased lethargy since yesterday. The patient also started having nausea and vomiting in the last 2 to 3 days. Denies any blood in the vomit. Denies any other associated symptoms. The patient does have a history of liver cirrhosis. The patient is followed with Dr. Oates in [place]. The patient had a recent hospitalization in [facility]. The patient has cardiac catheter performed in March per patient. The patient was told she had a cardiac arrest. The patient received resuscitations. During that admission, the patient was also told to have congestive heart failure exacerbation, approximately 72 pounds weight loss occurred during that hospitalization. The patient was discharged on 04/07/2017. PAST MEDICAL HISTORY: Liver cirrhosis secondary to CHAMPAGNE. Frequent elevated ammonia secondary to liver cirrhosis. Insulin dependent diabetes. Hypertension. Pancytopenia secondary to chronic liver disease. Grade 2 diastolic congestive heart failure. Asthma. Restless leg syndrome. Anxiety/depression. Morbid obesity. Insomnia. PAST SURGICAL HISTORY: section. Cholecystectomy. Endometrial ablation. Left rotator cuff arthroscope. Abscess removal of left lower extremity. Deviated septum with sinus surgery. Left breast cyst removal. Right Achilles tendon reattachment. SOCIAL HISTORY: Denies any smoking. Denies alcohol use. Denies recreational drug use. The is a FULL CODE. REVIEW OF SYSTEMS: GENERAL: No fever, no chills. Complains of increased lethargy in the last 1 to 2 days. HEENT: No vision changes, no auditory changes. CARDIOVASCULAR: History of cardiac arrest during the hospitalization in [facility] last month. Denies any chest pain or palpitations. RESPIRATORY: History of asthma. Denies any shortness of breath, cough or sputum production. GI: History of CHAMPAGNE resulting in liver cirrhosis. The patient has frequent elevated ammonia level resulting in altered mental status changes. The patient has been taking lactulose 30 mL at least three times a day. Has three to four bowel movements in the last few days. MUSCULOSKELETAL: Denies any muscle pain or joint pain. NEUROLOGICAL: Denies any numbness or tingling. OBJECTIVE: VITAL SIGNS: temperature is 96.8, pulse 78, respirations 16, blood pressure 141/63. Pulse oximetry 97% on room air. GENERAL: No sign of acute distress. Alert and oriented times three. HEENT: Normocephalic, atraumatic. Extraocular motors grossly intact. CARDIOVASCULAR: Positive S1, S2, regular rate. LUNGS: Clear to auscultation bilaterally. ABDOMEN: Mild tenderness to palpation of the right upper quadrant. Abdomen is soft. Bowel sounds present. EXTREMITIES: No edema. No sign of cyanosis. NEUROLOGICAL: Sensation to fine touch grossly intact. Muscle strength 5 out of 5. LABORATORY DATA: WBC is 2.6, hemoglobin 10, hematocrit 29.5, platelet count is 83. Sodium 138, potassium 4, chloride 104, carbon dioxide 27, BUN 50, creatinine is 1.52, GFR is 38.5. Fasting glucose 206. Calcium is 8.4. Total bilirubin is 0.5, direct bilirubin is 0.2. AST 25, ALT 25, alkaline phosphatase 91. Ammonia level is 74. Total CK is 67. Troponin I is less than 0.02. Total protein 7.1, albumin 3.3. TSH is 2.11. Lactic acid 1.2. IMAGING STUDIES: Chest x-ray questions new infiltrate. No acute disease. ASSESSMENT AND PLAN: 1. Acute kidney injury. The patient admitted to PCU on inpatient status. Clinically, the patient does not look overloaded. The patient did have a history of cardiac arrest within the last month. The patient did have exposure to the contrast agent. At the baseline, the patient's normal creatinine level, GFR most recent was obtained on 03/03/2017. If needed will consider consulting nephrology. 2. Grade 2 congestive heart failure. At the moment, the patient does not have sign of fluid overload. Grade 2 congestive heart failure was detected on the October echocardiogram. The patient did have a recent cardiac arrest. Will obtain the record. Will also followup with repeated echocardiogram. Currently the patient is treated for acute kidney injury. Will consider consulting nephrology for fluid management. 3. Type 2 diabetes, on consistent carbohydrate diet. On sliding scale. 4. Hypertension. Due to acute kidney injury. Angiotensin-converting enzyme (CHACORTA)/angiotensin II receptor blockers (ARB) will be on hold. 5. Restless leg syndrome. On home medications. 6. Liver cirrhosis due to CHAMPAGNE. Will schedule the lactulose. The patient will have three to four bowel movements on a daily basis. Will follow with ammonia level. 7. Morbid obesity. 8. Pancytopenia secondary to liver cirrhosis. 9. History of anemia. Follow hemoglobin and hematocrit. 10. Gastroesophageal reflux disease. 11. Deep venous thrombosis (DVT) prophylaxis. The patient will be on thromboembolism deterrents (TEDs), sequential compression devices.
[2017-04-28] MEDS: LACTULOSE 20 GM/30 ML SYRUP UD PO SCH ×2 (17:25→21:30)
[2017-04-28] MEDS: DICYCLOMINE 10 MG CAP PO SCH ×2 (17:25→21:32)
--- NOTE | 2017-04-28 17:26 | REP ---
RENAL ULTRASOUND: Real-time sonographic evaluation of the kidneys performed. The study is limited due to patient body habitus. The kidneys are normal in size and echotexture, the right kidney measuring 12.1 x 6.9 x 7.0 cm and the left kidney 13.6 x 6.8 x 7.3 cm. There is no hydronephrosis, renal mass or nephrolithiasis identified. IMPRESSION: Limited examination due to patient body habitus. Grossly unremarkable kidneys. Signed by Pedro Pablo Lu MD 04/29/2017 04:39 P
[2017-04-28] MEDS ORDERED: SLF 3 ML SYR IV PRN (17:30)
--- NOTE | 2017-04-28 18:17 | REP ---
CT ABDOMEN PELVIS WITHOUT CONTRAST: 04/28/2017. Clinical history: Cirrhosis, rule out ascites. Technique. Noncontrast images through the abdomen pelvis with coronal and sagittal reconstructions provided. Comparison: CT 02/14/2017. Findings: CT abdomen: There is no pleural effusion. The lung bases are clear. The heart is not enlarged. There is no pericardial thickening or effusion. No hiatal hernia. Stomach with some retained food but otherwise collapsed. Liver is not enlarged. There are lobulated margins and a slightly prominent left hepatic lobe. No intrahepatic biliary dilatation or adjacent ascites. Spleen is mildly enlarged with a vertical diameter of 13.5 cm. Clips in the gallbladder fossa from prior cholecystectomy. No focal splenic lesion. Pancreas without mass, ductal dilatation or adjacent adenopathy. The aorta is without aneurysm and no periaortic or other retroperitoneal lymphadenopathy. Small bowel loops are not dilated. The colon is filled with small amounts of retained stool and fluid and larger amounts with a few air-fluid levels in colon. There is no ascites in the peroneal gutters or along the anterior pararenal space. No mesenteric edema. Umbilical hernia with only omental fat within it. This is unchanged. The bone windows show degenerative disc changes throughout the lumbar and lower thoracic spine with vacuum phenomena at all levels from T11-12 through L5, S1. Discogenic endplate changes and sclerosis at L2-3. No compression deformities. Visualized ribs are intact. CT pelvis: SI joints with some vacuum phenomenon and degenerative changes. Hips with some degenerative change but no fracture, pelvis or hips. Kidneys show arterial calcification at the hilum. There is no hydronephrosis, hydroureter or ureteral stone. Bladder only partially filled and showing no stone, mass or wall thickening. Uterus anteverted, not enlarged. No pelvic mass. Distal left colon, sigmoid and rectum without acute inflammatory changes. Small bowel loops in the deep pelvis intact. No inflammatory changes about the cecum to suggest appendicitis. No ventral or inguinal hernia in the pelvis nor inguinal adenopathy. The subcutaneous edema seen on the previous study representing anasarca is much improved on the current exam. I do not see the diffuse skin thickening on the pannus that was present previously. Impression: 1. No evidence of abdominal or pelvic ascites. 2. Evidence for chronic liver disease with somewhat lobulated margins without hepatomegaly with a slightly enlarged spleen stable. 3. Small bowel loops, colon, pancreas, adrenal glands and kidneys intact. Gallbladder absent. 4. Anasarca much improved compared to the previous study. Signed by Juan Alberto Patel MD 04/28/2017 08:25 P
[2017-04-28 18:37] VITALS: BP 175/84
[2017-04-28] MEDS: HumaLOG INSULIN (NovoLOG) PER UNIT SC SCH ×2 (18:42→21:48)
[2017-04-28] MEDS: oxyCODONE 5MG TAB PO PRN (18:46)
--- NOTE | 2017-04-28 19:18 | ECGEPIP ---
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
[2017-04-28 20:00] VITALS: BP 173/84
[2017-04-28] MEDS: rOPINIRole 1MG TAB PO SCH (21:31)
[2017-04-28] MEDS: rifAXIMin 550 MG TAB (XIFAXAN) PO SCH (21:31)
[2017-04-28] MEDS: GABAPENTIN 300 MG CAP PO SCH (21:31)
[2017-04-28] MEDS: MONTELUKAST 10 MG TAB PO SCH (21:31)
[2017-04-28] MEDS: MAGNESIUM OXIDE 400 MG TAB (MAG-OX) PO SCH (21:32)
[2017-04-28] MEDS: **hydrALAZINE** 50 MG TAB PO SCH (21:32)
[2017-04-28] MEDS: CARVedilol 12.5 MG TAB PO SCH (21:32)
[2017-04-28] MEDS: SLF 3 ML SYR IV SCH (21:48)
[2017-04-28] MEDS: RAMELTEON 8 MG TAB (ROZEREM) PO SCH (23:24)
[2017-04-28 23:26] VITALS: BP 138/65
[2017-04-29] VITALS: BP 138/65
[2017-04-29] MEDS: LACTULOSE 20 GM/30 ML SYRUP UD PO SCH ×6 (01:00→20:44)
[2017-04-29] MEDS: oxyCODONE 5MG TAB PO PRN ×3 (02:10→21:52)
[2017-04-29] MEDS: hydrOXYzine 25 MG TAB PO PRN ×2 (02:10→13:56)
[2017-04-29 05:13] VITALS: BP 134/63
[2017-04-29] MEDS: SLF 3 ML SYR IV SCH ×3 (05:28→20:50)
[2017-04-29 05:34] LABS: MEAN CORPUSCULAR HEMOGLOBIN 31.3 pg (27.0-33.0); MEAN CORPUSCULAR HGB CONC 33.9 g/dl (32.0-36.5); MEAN CORPUSCULAR VOLUME 92.4 fl (80.0-96.0); RED CELL DISTRIBUTION WIDTH 13.2 % (11.5-14.5)
[2017-04-29 05:36] LABS: PLATELET COUNT, AUTOMATED 83 10^3/uL (150-450)
[2017-04-29 05:55] LABS: CALCIUM LEVEL 8.4 MG/DL (8.5-10.1); CREATININE FOR GFR 1.39 MG/DL (0.55-1.02); GLOMERULAR FILTRATION RATE 42.7 (>51); POTASSIUM SERUM 4.3 MEQ/L (3.5-5.1)
[2017-04-29 08:00] VITALS: BP 143/89
[2017-04-29] MEDS: HumaLOG INSULIN (NovoLOG) PER UNIT SC SCH ×4 (08:49→20:50)
[2017-04-29] MEDS: **hydrALAZINE** 50 MG TAB PO SCH ×4 (08:50→20:43)
[2017-04-29] MEDS: rOPINIRole 1MG TAB PO SCH ×2 (08:50→20:48)
[2017-04-29] MEDS: GABAPENTIN 300 MG CAP PO SCH ×2 (08:50→20:47)
[2017-04-29] MEDS: CARVedilol 12.5 MG TAB PO SCH ×2 (08:50→20:45)
[2017-04-29] MEDS: FERROUS SULFATE 325MG TAB PO SCH (08:50)
[2017-04-29] MEDS: OMEPRAZOLE 20 MG CAP PO SCH (08:50)
[2017-04-29] MEDS: VENLAFAXINE **XR** 37.5 MG CAPSULE PO SCH (08:50)
[2017-04-29] MEDS: CETIRIZINE (ZyrTEC) 10 MG TAB PO SCH (08:51)
[2017-04-29] MEDS: rifAXIMin 550 MG TAB (XIFAXAN) PO SCH ×2 (08:51→20:49)
[2017-04-29] MEDS: ASPIRIN 81 MG ENTERIC TAB PO SCH (08:51)
[2017-04-29] MEDS: buPROPion **XL** TABLET 150MG (WELLBUTRIN XL) PO SCH (08:51)
[2017-04-29] MEDS: DICYCLOMINE 10 MG CAP PO SCH ×4 (09:00→20:44)
[2017-04-29 11:30] VITALS: BP 140/66
--- NOTE | 2017-04-29 14:00 | IPNPDOC ---
Subjective Date Seen The patient was seen on 04/29/17. Subjective Chief Complaint/HPI The patient is a 51-year-old female admitted with a reason for visit of Lethargy. Events since last encounter pateint says unable to sleep for 3 days due to severe restless legs. Today seen in the room almost dancing around cannot stand still in one place cannot sit has been pacing around the room. no fever or chills, no somnolence or lethargy, no shortness of breath , no cough or phlegm , no fever or chills, no abdominal pain nausea or vomiting Objective Physical Examination General Exam: Positive: Alert, Cooperative, Mild Distress (cannot sit still or stand still because of restless legs. ) Eye Exam: Positive: PERRLA, Conjunctiva & lids normal, EOMI, Negative: Sclera icteric ENT Exam: Positive: Atraumatic, Mucous membr. moist/pink, Pharynx Normal Neck Exam: Positive: Supple, Negative: JVD, thyromegaly Chest Exam: Positive: Clear to auscultation, Normal air movement Heart Exam: Positive: Rate Normal, Regular Rhythm, Normal S1, Normal S2, Negative: Murmurs, Rubs Telemetry: Positive: No significant arrhythmia Abdomen Exam: Positive: Normal bowel sounds, Soft, Negative: Tenderness, Hepatospenomegaly Extremity Exam: Positive: Normal pulses, Negative: Clubbing, Cyanosis, Edema Skin Exam: Positive: Nl turgor and temperature, Negative: Rash, Breakdown Assessment /Plan Problems (1) Restless leg syndrome Status: Chronic Problem Text: On maximum dose of ropinirole got iron and increased dose of venlafaxine this am will monitor (2) Acute kidney injury Status: Acute Response to Treatment: Improving Problem Text: will continue to monitor. (3) Hepatic encephalopathy Status: Chronic Problem Text: though ammonia raised and as per notes lethargic yesterday however today there is no signs of encephalopathy will continue with home dose of lactulose and rifaximin. (4) Cirrhosis of liver Status: Chronic Problem Text: due to CHAMPAGNE (5) CHAMPAGNE (nonalcoholic steatohepatitis) Status: Chronic (6) HTN (hypertension) Status: Chronic (7) Morbid obesity Status: Chronic (8) GERD (gastroesophageal reflux disease) Status: Chronic (9) Diastolic congestive heart failure Status: Chronic Problem Text: no signs of fluid overload. was admitted in [facility] in [place] had 72 lbs of fluid removed discharged on 04/08 during that admission was taken to OR for liver biopsy however had cardiac arrest in OR and required cpr. (10) Diabetes Status: Chronic (11) Pancytopenia Status: Chronic Plan/VTE VTE Prophylaxis Ordered?: Yes VS, I&O, 24H, Fishbone Vital Signs/I&O Vital Signs Date Time Temp Pulse Resp B/P (MAP) Pulse Ox O2 Delivery O2 Flow Rate FiO2 04/29/17 12:27 140/66 04/29/17 11:30 97.0 64 18 97 Room Air I&O- Last 24 Hours up to 6 AM 04/30/17 06:00 Intake Total 360 ml Balance 360 ml Laboratory Data 24H LABS Laboratory Tests 2 04/28/17 14:14: Blood Gas Bicarbonate Standard 26.7, Venous Blood pH 7.438H, Venous Blood Partial Pressure CO2 40.9, Venous Blood Partial Pressure O2 56.6H, Venous Blood Total Carbon Dioxide 28.3H, Venous Blood HCO3 27.0, Venous Blood Oxygen Saturation 89.9H, Venous Blood Base Excess 2.6H, Lactic Acid Level 1.2, Ammonia 74H 04/28/17 16:28: Urine Appearance CLEAR, Urine Color YELLOW, Urine pH 5.0, Urine Specific [place] 1.009, Urine Protein NEGATIVE, Urine Glucose (UA) NEGATIVE, Urine Ketones NEGATIVE, Urine Urobilinogen 0.2, Urine Bilirubin NEGATIVE, Urine Leukocyte Esterase TRACEH, Urine Blood NEGATIVE, Urine Nitrite NEGATIVE, Urine WBC (Auto) 1, Urine RBC (Auto) 0, Urine Hyaline Casts (Auto) 0, Urine Bacteria ( Auto) NEGATIVE, Urine Squamous Epithelial Cells 2, Urine Sperm (Auto) , Urine Random Creatinine 46.5, Urine Random Sodium 72, Urine Random Chloride 67 04/28/17 18:09: Total Creatine Kinase 64, Creatine Kinase MB 1.0, Creatine Kinase MB Relative Index 1.56, Troponin I < 0.02 04/29/17 05:22: Ammonia 101H, Nucleated Red Blood Cells % (auto) 0.0, Anion Gap 8, Glomerular Filtration Rate 42.7L, Blood Urea Nitrogen 50H, Creatinine 1.39H, Sodium Level 138, Potassium Level 4.3, Chloride Level 103, Carbon Dioxide Level 27, Calcium Level 8.4L CBC/BMP Laboratory Tests 04/29/17 05:22 Red Blood Count 3.16 L, Mean Corpuscular Volume 92.4, Mean Corpuscular Hemoglobin 31.3, Mean Corpuscular Hemoglobin Concent 33.9, Red Cell Distribution Width 13.2, Calcium Level 8.4 L Microbiology Microbiology 04/28/17 Blood Culture, Received Pending 04/28/17 Blood Culture, Received Pending JANET RAO MD Apr 29, 2017 14:00
[2017-04-29 15:26] VITALS: BP 148/70
[2017-04-29 20:10] VITALS: BP 152/70
[2017-04-29] MEDS: MAGNESIUM OXIDE 400 MG TAB (MAG-OX) PO SCH (20:46)
[2017-04-29] MEDS: RAMELTEON 8 MG TAB (ROZEREM) PO SCH (20:48)
[2017-04-29] MEDS: MONTELUKAST 10 MG TAB PO SCH (20:49)
[2017-04-30] VITALS: BP 128/59
[2017-04-30] MEDS: LACTULOSE 20 GM/30 ML SYRUP UD PO SCH ×6 (01:00→20:57)
[2017-04-30 04:00] VITALS: BP 130/60
[2017-04-30] MEDS: oxyCODONE 5MG TAB PO PRN (04:44)
[2017-04-30 05:44] LABS: MEAN CORPUSCULAR HEMOGLOBIN 31.6 pg (27.0-33.0); MEAN CORPUSCULAR HGB CONC 33.8 g/dl (32.0-36.5); MEAN CORPUSCULAR VOLUME 93.5 fl (80.0-96.0); RED CELL DISTRIBUTION WIDTH 13.2 % (11.5-14.5); WHITE BLOOD COUNT 2.6 10^3/uL (4.0-10.0)
[2017-04-30 05:51] LABS: PLATELET COUNT, AUTOMATED 76 10^3/uL (150-450)
[2017-04-30 05:52] LABS: IMMATURE PLATELET FRACTION % 4.3 % (0.0-9.6); PLATELET F 76
[2017-04-30] MEDS: SLF 3 ML SYR IV SCH ×3 (06:00→21:11)
[2017-04-30 06:01] LABS: CALCIUM LEVEL 8.5 MG/DL (8.5-10.1); CREATININE FOR GFR 1.37 MG/DL (0.55-1.02); GLOMERULAR FILTRATION RATE 43.4 (>51); POTASSIUM SERUM 4.2 MEQ/L (3.5-5.1)
[2017-04-30] MEDS: HumaLOG INSULIN (NovoLOG) PER UNIT SC SCH ×4 (07:51→21:13)
[2017-04-30 08:00] VITALS: BP 135/64
[2017-04-30] MEDS: CARVedilol 12.5 MG TAB PO SCH ×2 (09:46→21:06)
[2017-04-30] MEDS: VENLAFAXINE **XR** 37.5 MG CAPSULE PO SCH (09:46)
[2017-04-30] MEDS: GABAPENTIN 300 MG CAP PO SCH ×2 (09:47→21:07)
[2017-04-30] MEDS: rOPINIRole 1MG TAB PO SCH ×2 (09:48→21:07)
[2017-04-30] MEDS: **hydrALAZINE** 50 MG TAB PO SCH ×4 (09:49→21:05)
[2017-04-30] MEDS: rifAXIMin 550 MG TAB (XIFAXAN) PO SCH ×2 (09:49→21:08)
[2017-04-30] MEDS: ASPIRIN 81 MG ENTERIC TAB PO SCH (09:50)
[2017-04-30] MEDS: OMEPRAZOLE 20 MG CAP PO SCH (09:50)
[2017-04-30] MEDS: DICYCLOMINE 10 MG CAP PO SCH ×4 (09:50→21:05)
[2017-04-30] MEDS: buPROPion **XL** TABLET 150MG (WELLBUTRIN XL) PO SCH (09:51)
[2017-04-30] MEDS: FERROUS SULFATE 325MG TAB PO SCH (09:51)
[2017-04-30] MEDS: CETIRIZINE (ZyrTEC) 10 MG TAB PO SCH (09:51)
[2017-04-30 12:00] VITALS: BP 133/62
--- NOTE | 2017-04-30 14:42 | CR ---
DATE OF CONSULTATION: 04/29/2017 REQUESTING PHYSICIAN: Dr. Shireen Mccray REASON FOR CONSULTATION: Acute kidney injury on chronic kidney disease, fluid management. HISTORY OF PRESENT ILLNESS: This is a 51-year-old female with a past medical history significant for liver cirrhosis secondary to nonalcoholic steatohepatitis, history of type 2 diabetes, systemic hypertension, diastolic congestive heart failure (CHF), history of recent cardiac arrest, thrombocytopenia, leukopenia, restless leg syndrome, morbid obesity, anxiety, and depression. The patient recently had an approximately 2-week inpatient stay at [facility]. That admission was reportedly complicated by acute kidney injury, not requiring dialysis, significant decompensation in volume status requiring diuresis of 72 pounds, and cardiac arrest. The patient was discharged home on 04/08/2017. She was feeling well until several days prior when she noted nausea, vomiting, and an increase in lethargy and fatigue. She states that she has been compliant with her medications as prescribed. She takes Lactulose at home and she also notes furosemide for a history of congestive heart failure. The patient has a baseline creatinine of approximately 1 with recurrent mild acute kidney injury in the past 6 months. She states that while she was admitted at [facility] she was told that she had an acute kidney injury but that she never required any rescue dialysis. The patient furthermore states that her cardiac arrest was not prolonged. She apparently revived after resuscitation and was never ventilator dependent. PAST MEDICAL HISTORY: 1. Liver cirrhosis secondary to nonalcoholic steatohepatitis. 2. Hyperammonemia. 3. Hypertension. 4. Type 2 diabetes. 5. Morbid obesity. 6. Thrombocytopenia. 7. Diastolic congestive heart failure with recent diuresis of reported 72 pounds. 8. Restless leg syndrome. 9. Anxiety, depression. 10. Pulmonary hypertension. PAST SURGICAL HISTORY: 1. section. 2. Left breast cyst removal. 3. Cholecystectomy. 4. Right Achilles tendon reattachment. ALLERGIES: DILTIAZEM, LISINOPRIL, LOSARTAN, METFORMIN, PHENAZOPYRIDINE. SOCIAL HISTORY: The patient denies smoking, alcohol use and illicit drug use. She lives at home. FAMILY HISTORY: Noncontributory. HOME MEDICATIONS: - ProAir as needed - Arnuity Ellipta 200 mcg inhaled daily - aspirin 81 mg by mouth daily - bupropion XL 150 mg by mouth daily - Coreg 25 mg by mouth twice a day - cetirizine 10 mg by mouth daily - dicyclomine 10 mg by mouth daily - iron 325 mg by mouth daily - fluticasone one spray as needed - furosemide 40 mg by mouth daily - gabapentin 600 mg by mouth twice a day - hydralazine 50 mg by mouth four times a day - insulin - lactulose - magnesium 400 mg by mouth at night - montelukast 10 mg by mouth at night - omeprazole 20 mg by mouth daily - B2 100 mg by mouth daily - Rifaximin 550 mg tablet by mouth twice a day - Requip 2 mg by mouth twice a day - Toujeo 54 units subcutaneously at night - Effexor XR 75 mg by mouth daily REVIEW OF SYSTEMS: Positive for several day history of increased lethargy and increased restless legs. Review of systems is negative for fevers, chills, chest pain, palpitations, shortness of breath, dyspnea on exertion, nausea, vomiting, syncope, dysuria, urinary retention, rashes. The remainder of the review of systems is negative. VITAL SIGNS: Temperature 97, pulse 64, respiratory rate 18, blood pressure 140/66, saturating 97% on room air. Intake and output: Urine output yesterday was 2000 mL. Net negative 560 mL fluid balance. PHYSICAL EXAMINATION: The patient is seen ambulating in the room in no respiratory distress. She is morbidly obese. HEAD/NECK: Extraocular muscles are intact. Mucous membranes are moist. CARDIOVASCULAR: S1, S2. Regular rate. There is no edema in the dependent areas on the periphery. LUNGS: Clear to auscultation bilaterally. On room air. Seen ambulating comfortably and in no distress. ABDOMEN: Obese, nontender. Bowel sounds present. Unable to production lead liver span secondary to abdominal obesity. No ascitic wave. GENITOURINARY: No suprapubic distention of the bladder. EXTREMITIES: No edema in the extremities. Her legs are restless. NEUROLOGIC: No asterixis. Oriented times three. No focal deficits. PSYCHIATRIC: Appropriate mood and affect. LABORATORY DATA: White count 3, hemoglobin 9.9, platelets 83, sodium 138, potassium 4.3, bicarbonate 27, BUN 50, admission creatinine 1.5, current creatinine 1.39, glucose 234, calcium 8.4, ammonia 101. Urine random sodium 72. Blood cultures no growth for 24 hours. IMAGING: Renal ultrasound 04/28 limited due to the patient's body habitus but no hydronephrosis or nephrolithiasis identified. CT scan of the abdomen and pelvis 04/28 without contrast showed no abdominal pelvic ascites, improvement in previous noted anasarca. No hydronephrosis, hydroureter or ureteral stones. The lung bases are clear and there is no pleural effusion. INPATIENT MEDICATIONS: - aspirin 81 mg by mouth daily - Wellbutrin 150 mg by mouth daily - chloride 27 mg by mouth twice a day - cetirizine 10 mg by mouth daily - Bentyl 10 mg by mouth four times a daily - ferrous sulfate 325 mg by mouth daily - gabapentin 600 mg by mouth twice a day - hydralazine 60 mg by mouth four times a day - insulin - Lactulose 30 mL by mouth every 4 hours - magnesium 400 mg at bedtime - montelukast 10 mg by mouth at night - omeprazole 20 mg by mouth daily - Zofran as needed - oxycodone as needed - rifaximin 550 mg by mouth twice a day - Requip 2 mg by mouth twice a day - Effexor 75 mg by mouth daily ASSESSMENT AND PLAN: 1. Chronic kidney disease stage III with acute kidney injury. The patient's baseline creatinine is approximately 1. She has had multiple recurrent acute kidney injuries that were mild in nature over the past 6 months and she does admit to an acute kidney injury while she was admitted to [facility] this past month. With these acute kidney injuries, the patient may have had progression in her chronic kidney disease. She was also aggressively diuresed on her admission at [facility] with a reported 72 pounds that were lost. At present, she is probably fairly close to her baseline creatinine. Medications are reviewed and no nephrotoxics are seen and her electrolytes are acceptable at this time. Would continue with supportive care for her mild acute kidney injury. She was on losartan at home and that is held at present. 2. Diastolic congestive heart failure (CHF) with recent aggressive diuresis on last admission at [facility]. The patient is on Lasix 40 mg by mouth twice a day at home. At present, she is euvolemic on examination. Breathing comfortably on room air, ambulating without dyspnea on exertion. CT scan showed clear lung bases without pleural effusion and there was no significant abdominal pelvic ascites. At this point, her volume status is well compensated and I will hold her home diuretics given that the patient will be receiving frequent doses of Lactulose. She is expected to have recurrent episodes of diarrhea with the same. I will give the patient neither IV fluids nor diuretics at present. She should have daily weights checked and we will assess her volume status on a day to day basis and we will resume diuretics when indicated. 3. Liver cirrhosis due to non alcoholic steatohepatitis with hyperammonemia. The patient's ammonia level is 101. She is scheduled for lactulose six times a day. She is expected to have recurrent watery diarrhea. I will hold her diuretics at present given the same. 4. Hypertension. The patient's blood pressure is well controlled at present without any documented hypotensive episodes. Her home losartan is held in the setting of acute kidney injury. 5. Morbid obesity complicating care. 6. 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 Thank you for involving me in the care of Ms. Devi. I will be happy to follow the patient along with you. SETH
[2017-04-30 16:00] VITALS: BP 147/68
--- NOTE | 2017-04-30 17:01 | IPNPDOC ---
Subjective Date Seen The patient was seen on 04/30/17. Subjective Chief Complaint/HPI The patient is a 51-year-old female admitted with a reason for visit of Lethargy. Events since last encounter feeling better this am , restless legs a little better, no other complaints. Objective Physical Examination General Exam: Positive: Alert, Cooperative, Mild Distress (cannot sit still or stand still because of restless legs. ) Eye Exam: Positive: PERRLA, Conjunctiva & lids normal, EOMI, Negative: Sclera icteric ENT Exam: Positive: Atraumatic, Mucous membr. moist/pink, Pharynx Normal Neck Exam: Positive: Supple, Negative: JVD, thyromegaly Chest Exam: Positive: Clear to auscultation, Normal air movement Heart Exam: Positive: Rate Normal, Regular Rhythm, Normal S1, Normal S2, Negative: Murmurs, Rubs Telemetry: Positive: No significant arrhythmia Abdomen Exam: Positive: Normal bowel sounds, Soft, Negative: Tenderness, Hepatospenomegaly Extremity Exam: Positive: Normal pulses, Negative: Clubbing, Cyanosis, Edema Skin Exam: Positive: Nl turgor and temperature, Negative: Rash, Breakdown Assessment /Plan Problems (1) Restless leg syndrome Status: Chronic Problem Text: On maximum dose of ropinirole got iron and increased dose of venlafaxine will add pramipexole at bedtime. will monitor (2) Acute kidney injury Status: Acute Response to Treatment: Improving Problem Text: will continue to monitor. (3) Hepatic encephalopathy Status: Chronic Problem Text: though ammonia raised and as per notes lethargic yesterday however today there is no signs of encephalopathy will continue with home dose of lactulose and rifaximin. (4) Cirrhosis of liver Status: Chronic Problem Text: due to CHAMPAGNE (5) CHAMPAGNE (nonalcoholic steatohepatitis) Status: Chronic (6) HTN (hypertension) Status: Chronic (7) Morbid obesity Status: Chronic (8) GERD (gastroesophageal reflux disease) Status: Chronic (9) Diastolic congestive heart failure Status: Chronic Problem Text: no signs of fluid overload. was admitted in [facility] in [place] had 72 lbs of fluid removed discharged on 04/08 during that admission was taken to OR for liver biopsy however had cardiac arrest in OR and required cpr. (10) Diabetes Status: Chronic (11) Pancytopenia Status: Chronic Plan/VTE VTE Prophylaxis Ordered?: Yes VS, I&O, 24H, Fishbone Vital Signs/I&O Vital Signs Date Time Temp Pulse Resp B/P (MAP) Pulse Ox O2 Delivery O2 Flow Rate FiO2 04/30/17 12:51 133/62 04/30/17 12:00 98.0 82 18 99 Room Air I&O- Last 24 Hours up to 6 AM 05/01/17 06:00 Intake Total 600 ml Output Total 1400 ml Balance -800 ml Laboratory Data 24H LABS Laboratory Tests 2 04/30/17 05:23: Nucleated Red Blood Cells % (auto) 0.0, Immature Platelet Fraction 4.3, Anion Gap 9, Glomerular Filtration Rate 43.4L, Blood Urea Nitrogen 48H, Creatinine 1.37H, Sodium Level 138, Potassium Level 4.2, Chloride Level 104, Carbon Dioxide Level 25, Calcium Level 8.5, Ammonia 50H CBC/BMP Laboratory Tests 04/30/17 05:23 Red Blood Count 3.07 L, Mean Corpuscular Volume 93.5, Mean Corpuscular Hemoglobin 31.6, Mean Corpuscular Hemoglobin Concent 33.8, Red Cell Distribution Width 13.2, Calcium Level 8.5 Microbiology Microbiology 04/28/17 Blood Culture - Preliminary, Resulted No Growth after 48 hours. All Specime... 04/28/17 Blood Culture - Preliminary, Resulted No Growth after 48 hours. All Specime... JANET RAO MD Apr 30, 2017 17:01
[2017-04-30 20:00] VITALS: BP 148/60
[2017-04-30] MEDS ORDERED: LEVEMIR (INSULIN DETEMIR) 1 UNITS/0.01ML SC SCH (21:00)
[2017-04-30] MEDS ORDERED: PRAMIPEXOLE (MIRAPEX) 0.125 MG TAB PO SCH (21:00)
[2017-04-30] MEDS: MAGNESIUM OXIDE 400 MG TAB (MAG-OX) PO SCH (21:06)
[2017-04-30] MEDS: RAMELTEON 8 MG TAB (ROZEREM) PO SCH (21:08)
[2017-04-30] MEDS: MONTELUKAST 10 MG TAB PO SCH (21:08)
[2017-05-01] VITALS: BP 130/50
[2017-05-01] MEDS ORDERED: diphenhydrAMINE CREAM 30GM TOP PRN (01:00)
[2017-05-01] MEDS: LACTULOSE 20 GM/30 ML SYRUP UD PO SCH ×5 (01:00→12:18)
[2017-05-01 04:00] VITALS: BP 140/60
[2017-05-01] MEDS: SLF 3 ML SYR IV SCH (05:25)
[2017-05-01 05:35] LABS: MEAN CORPUSCULAR HEMOGLOBIN 31.5 pg (27.0-33.0); MEAN CORPUSCULAR HGB CONC 33.9 g/dl (32.0-36.5); MEAN CORPUSCULAR VOLUME 92.9 fl (80.0-96.0); RED CELL DISTRIBUTION WIDTH 13.2 % (11.5-14.5); WHITE BLOOD COUNT 2.4 10^3/uL (4.0-10.0)
[2017-05-01 05:39] LABS: PLATELET COUNT, AUTOMATED 71 10^3/uL (150-450)
[2017-05-01 05:54] LABS: ANION GAP 9 MEQ/L (8-16); BLOOD UREA NITROGEN 40 MG/DL (7-18); CALCIUM LEVEL 8.2 MG/DL (8.5-10.1); CARBON DIOXIDE LEVEL 24 MEQ/L (21-32); CHLORIDE LEVEL 107 MEQ/L (98-107); CREATININE FOR GFR 0.99 MG/DL (0.55-1.02); GLOMERULAR FILTRATION RATE > 60.0 (>51); GLUCOSE, FASTING 245 MG/DL (70-105); POTASSIUM SERUM 3.9 MEQ/L (3.5-5.1); SODIUM LEVEL 140 MEQ/L (136-145)
[2017-05-01 08:00] VITALS: BP 138/52
[2017-05-01] MEDS: HumaLOG INSULIN (NovoLOG) PER UNIT SC SCH ×2 (08:08→12:14)
[2017-05-01] MEDS: rifAXIMin 550 MG TAB (XIFAXAN) PO SCH (08:09)
[2017-05-01] MEDS: buPROPion **XL** TABLET 150MG (WELLBUTRIN XL) PO SCH (08:09)
[2017-05-01] MEDS: ASPIRIN 81 MG ENTERIC TAB PO SCH (08:09)
[2017-05-01] MEDS: **hydrALAZINE** 50 MG TAB PO SCH ×2 (08:10→12:14)
[2017-05-01] MEDS: DICYCLOMINE 10 MG CAP PO SCH ×2 (08:10→12:14)
[2017-05-01] MEDS: GABAPENTIN 300 MG CAP PO SCH (08:10)
[2017-05-01] MEDS: CETIRIZINE (ZyrTEC) 10 MG TAB PO SCH (08:11)
[2017-05-01] MEDS: rOPINIRole 1MG TAB PO SCH (08:11)
[2017-05-01] MEDS: FERROUS SULFATE 325MG TAB PO SCH (08:11)
[2017-05-01] MEDS: OMEPRAZOLE 20 MG CAP PO SCH (08:11)
[2017-05-01] MEDS: VENLAFAXINE **XR** 37.5 MG CAPSULE PO SCH (08:11)
[2017-05-01] MEDS: CARVedilol 12.5 MG TAB PO SCH (08:12)
[2017-05-01] MEDS ORDERED: LOSARTAN 25 MG TAB PO SCH (09:00)
[2017-05-01] MEDS ORDERED: FUROSEMIDE 40 MG TAB PO SCH (09:00)
[2017-05-01] MEDS ORDERED: MIRA0.12 PO (09:36)
[2017-05-01] MEDS ORDERED: LASI40TA PO (09:36)
[2017-05-01 12:14] VITALS: BP 137/63
--- NOTE | 2017-05-01 15:18 | IPN ---
DATE: 04/30/2017 SUBJECTIVE: The patient is seen this morning at the bedside. She feels better. She had five bowel movements recorded yesterday. Her ammonia level has come down to 50. She denies any shortness of breath or dyspnea on exertion. No complaints at present. OBJECTIVE: VITAL SIGNS: Temperature 98.0, pulse 82, respiratory rate 18, blood pressure 133/62, saturating 99% on room air. INTAKE AND OUTPUT: Urine output yesterday was 2000 mL. Weight in the bed scale today 156 kg. PHYSICAL EXAMINATION: The patient is in bed, awake, alert, obese, in no acute distress, comfortable appearing. HEAD/NECK: Extraocular muscles are intact. Mucous membranes are moist. Neck is supple. CARDIOVASCULAR: S1, S2. Regular rate. There is trace edema in the lower extremities. LUNGS: Clear to auscultation. Comfortable on room air. ABDOMEN: Obese, nontender. Positive bowel sounds. GENITOURINARY: No distention of the suprapubic bladder. EXTREMITIES: Trace edema in the lower extremities is present. NEUROLOGIC: No asterixis. Oriented. No focal deficits. PSYCHIATRIC: Appropriate mood and affect. LABORATORY DATA: Sodium 138, potassium 4.2, bicarbonate 25, BUN 48, creatinine 1.3, calcium 8.5, ammonia 50. White count 2.6, hemoglobin 9.7, platelets 76. MICROBIOLOGY: Blood cultures 04/28 no growth for 48 hours. INPATIENT MEDICATIONS: Reviewed by myself. Her insulin was adjusted per the primary team. She continues on lactulose 30 mL by mouth every four. She is started on pramipexole 0.125 mg at bedtime. There are no other significant changes in her medications. Her diuretics remain on hold. PROBLEMS: 1. Chronic kidney disease (CKD) stage III. Baseline creatinine approximately one; however, history of recurrent mild acute kidney injuries (AKIs) over the past six months including a recent RUBY while admitted to [facility]. During that admission, she was also aggressively diuresed. Reported 72 pounds were lost. Her discharge creatinine is unknown. At present, her glomerular filtration rate (GFR) is improving, and volume status is fairly stable, and electrolytes are acceptable. The patient is having recurrent diarrhea from lactulose and she is fluid restricting to 1500 mL a day, so at this point I feel comfortable holding her home diuretics with close attention to her volume status. 2. Diastolic congestive heart failure. At present she is compensated. She is appropriately fluid restricting. She is having diarrhea secondary to lactulose administration. She is comfortable on room air without evidence of overt hypervolemia. We will hold her diuretics at present. She will be reassessed daily for diuretic readministration. She is overall in a negative fluid balance at present without diuretic use. 3. Hypertension. The patient's blood pressure is well controlled at present. Continue to hold home losartan. 4. Liver cirrhosis due to non-alcoholic steatohepatitis (CHAMPAGNE) with hyperammonemia. The patient's ammonia level has improved to 50. She continues on lactulose. 5. Restless leg syndrome per the primary team.
--- NOTE | 2017-05-02 15:33 | IPN ---
DATE OF SERVICE: 05/01/2017 SUBJECTIVE: The patient is seen this morning at the bedside. She is discharge pending. She feels well. No complaints. Has been ambulating without any dyspnea on exertion or shortness of breath. Her lethargy has resolved. She continues to have restless legs, though improved from prior. Discharge medications were discussed with Dr. Maren Castillo and with the patient, as well. REVIEW OF SYSTEMS: Positive for restless legs. Negative for chest pain, palpitations, shortness of breath, nausea, vomiting, abdominal discomfort. Review of systems also positive for lactulose-associated diarrhea. Remainder of review of systems negative. VITAL SIGNS: Temperature 98.4, pulse 80, respiratory rate 18, blood pressure 138/52, saturating 99% on room air. INTAKE AND OUTPUT: Intake yesterday 1440 mL. Urine output 3.5 liters. Weight in the bed scale today 160 kg, likely inaccurate given that she was in negative fluid balance yesterday. GENERAL: The patient is seen at the bed, sitting, legs dangling off the edge, comfortable, in no acute distress. HEAD AND NECK: Extraocular muscles are intact. The neck is supple. CARDIOVASCULAR: S1, S2. Regular rate. There is trace edema in the lower extremities bilaterally. LUNGS: Are clear to auscultation bilaterally. The patient is comfortable on room air. ABDOMEN: Is obese, nontender. Positive bowel sounds. GENITOURINARY: Positive bowel sounds. EXTREMITIES: Trace edema in the lower extremities is present. NEUROLOGIC: Oriented. No focal deficits. PSYCHIATRIC: Appropriate mood and affect. LABORATORIES: White count 2.4, hemoglobin 9.3. Sodium 140, potassium 3.9, bicarbonate 24, BUN 40, creatinine 0.9, calcium 8.2, ammonia 58. MICROBIOLOGY: Blood cultures no growth for 72 hours. PROBLEMS: Chronic kidney disease (CKD) stage III. The patient's creatinine has returned to known baseline. Blood urea nitrogen (BUN) is downtrending but still at 40. The patient's losartan remains on hold. Her volume status is fairly euvolemic at this time. Some trace edema is present in the lower extremities. The patient is unsure of what her dry weight was after she left [facility] with aggressive diuresis of 72 pounds on last admission. The patient is counseled in regard to daily weights. She does appropriately fluid restrict to 1500 mL daily. She will be discharged home today to resume her diuretic regimen , albeit at a lower dose. She was previously on Lasix 40 mg by mouth twice a day. At present, we will have her take Lasix 40 mg daily. She will also continue to hold her losartan for the present time due to recent renal recovery from acute kidney injury. She will continue to take scheduled lactulose at home to target 4-5 bowel movements daily, and she is likely to have some loss of free water associated with her recurrent diarrhea. The patient will follow in the office within 1 week of discharge for monitoring of her renal function, blood pressure, and volume status with titration of diuretic as indicated. MTDD
--- NOTE | 2017-05-20 13:36 | DSES ---
DATE OF ADMISSION: 04/28/2017 DATE OF DISCHARGE: 05/01/2017 PRIMARY CARE PROVIDER: Dr. Paulino. DISCHARGE DIAGNOSES: Acute kidney injury improved thought to be due to over diuresis and causes. Hepatic encephalopathy, chronic. 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 Hypertension. Morbid obesity. Gastroesophageal reflux disease (GERD). Diastolic congestive heart failure. Diabetes. Pancytopenia. Restless leg syndrome. Chronic kidney disease stage III. Asthma. Seasonal allergies. Chronic low back pain, has lumbar intervertebral disc disease. Pulmonary hypertension with history of chronic right sided heart failure. DISCHARGE MEDICATIONS: - Lasix 40 mg by mouth daily - Mirapex 0.125 mg by mouth twice daily - albuterol sulfate two puffs inhalation every 4 hours as needed wheezing - DuoNebs one solution four times daily as needed shortness of breath - Ellipta 200 mcg inhalation daily - aspirin 81 mg daily - bupropion 150 mg daily - Coreg 25 mg twice daily - cetirizine 10 mg by mouth daily - dicyclomine 10 mg by mouth four times daily - Senokot S two tablets by mouth twice daily - ferrous sulfate 325 mg by mouth daily - fluticasone nasal spray one spray both nostrils daily - gabapentin 600 mg by mouth three times daily - hydralazine 50 mg by mouth four times daily - hydroxyzine 50 mg by mouth every 6 hours as needed anxiety - insulin Aspart before meals and at bedtime as per sliding scale - lactulose 30 mL by mouth as directed - magnesium oxide 40 mg by mouth at bedtime - meclizine 25 mg by mouth four times daily as needed dizziness - montelukast 10 mg by mouth at bedtime - Nystatin powder topically twice daily - omeprazole 20 mg by mouth daily - ondansetron 4 mg by mouth every 8 hours as needed nausea - oxycodone 5 mg by mouth every 6 hours as needed pain - riboflavin mg by mouth daily - rifaximin 550 mg by mouth twice daily - Requip 4 mg at bedtime - Toujeo insulin 54 units at bedtime - venlafaxine 75 mg by mouth daily - saline nasal spray one spray both nostrils four times daily as needed nasal dryness HOSPITAL COURSE: This is a 51-year-old female who was sent to the emergency room by primary care doctor for abnormal blood work because of increase in her BUN and creatinine so she was admitted for acute kidney injury. Patient was recently admitted at [facility] from March 19 through April 07 where she was treated for fluid overload and congestive heart failure with aggressive diuresis and lost 72 pounds in her weight. There she was also diagnosed with cirrhosis of liver with CHAMPAGNE and in [place] she was taken to operating room (OR) for a liver biopsy, then during the procedure she had cardiac arrest in the OR so she ultimately never got the liver biopsy done. Here patient was seen by Dr. Ruiz from nephrology and it was felt her acute renal failure is possibly due to aggressive diureses that she has recently undergone so her Lasix dosage was adjusted as well as her Losartan was stopped. Patient also was very uncomfortable from her restless leg syndrome so she was started on a second medication Mirapex on top of her Requip. Patient's blood work improved with decrease in diuretic level as well as holding Losartan. On the day of discharge, patient did not have any complaints. Patient was functioning at her baseline and vitals were stable. PHYSICAL EXAMINATION: Vital signs: Temperature 98.4, pulse 84, respiratory rate 18, blood pressure 140/60, pulse oximetry 99% on room air. General: Patient awake, alert, oriented times three sitting up in bed in no acute distress. HEENT: Normocephalic, atraumatic. Moist mucosus membranes. Anicteric eyes. Chest: Clear to auscultation. Cardiovascular: S1, S2, regular. Abdomen: Obese, soft, nontender. Bowel sounds present. Extremities: No edema. LABORATORY STUDIES: WBC 2.4, hemoglobin 9.3, platelets 71. Sodium 140, potassium 3.9, chloride 107, bicarbonate 24, BUN 40, creatinine 0.9, glucose 245, calcium 8.2, ammonia 58. Abdomen and pelvis CT did not show any ascites. Did show chronic liver disease with lobulated liver margins, hepatomegaly and splenomegaly. Anasarca improved from previous study. Small bowel loops, colon, pancreas, adrenal glands and kidneys within normal limits. DISPOSITION: Patient is discharged home in stable condition. DISCHARGE INSTRUCTIONS: Patient to followup with primary care provider in 1 week. Patient to followup with Dr. Ruiz in 1 week. DIET: Consistent carbohydrate diet. Fluid restriction 1.8 liters in 24 hours. Activity as tolerated.
== END 2017-05-01 13:01 | disposition home or self-care (01) | DRG 279 ==
LOC: M ED 11:16 → M ED INP 16:11 → M PCU 16:11
PROVIDERS: ADMIT Internal Medicine; ATTEND Internal Medicine Nephrology
DX: K72.90 Hepatic failure, unspecified without coma (principal); D61.818 Other pancytopenia; N17.9 Acute kidney failure, unspecified; I13.0 Hypertensive heart and chronic kidney disease with heart failure and stage 1 through stage 4 chronic kidney disease, or unspecified chronic kidney disease; I50.32 Chronic diastolic (congestive) heart failure; K75.81 Nonalcoholic steatohepatitis (NASH); N18.3 Chronic kidney disease, stage 3 (moderate); E72.20 Disorder of urea cycle metabolism, unspecified; Z86.74 Personal history of sudden cardiac arrest; E66.01 Morbid (severe) obesity due to excess calories; Z68.42 Body mass index [BMI] 45.0-49.9, adult; E11.9 Type 2 diabetes mellitus without complications; G25.81 Restless legs syndrome; K21.9 Gastro-esophageal reflux disease without esophagitis; Z90.49 Acquired absence of other specified parts of digestive tract; Z88.8 Allergy status to other drugs, medicaments and biological substances; Z79.82 Long term (current) use of aspirin; Z79.4 Long term (current) use of insulin; Z79.899 Other long term (current) drug therapy; K74.60 Unspecified cirrhosis of liver

== ENCOUNTER 2017-05-15 08:37 | Emergency (ER) | payer OTHER ==
[~2017-05-15] VITALS: Ht 182.9 cm; Wt 158.2 kg
[~2017-05-15 08:37] MED LIST changes: +EFFE37.527 PO; +FERR1TAB8 PO; +GABA600T PO; +HYDR-3911 PO; +HYDR50CA2 PO; +LASI40TA PO; +MECL-68 PO; +MIRA0.12 PO; +NYST1POW9 TOP; +OXYC-517 PO
[2017-05-15] MEDS ORDERED: NS 1,000 ML IV SCH (09:05)
[2017-05-15] MEDS ORDERED: ONDANSETRON 4MG/2ML VIAL (J2405) IV ONE (09:15)
[2017-05-15] MEDS: MORPHINE 4 MG/ML 1ML SYRINGE IV PRN ×2 (09:28→11:02)
[2017-05-15 09:34] LABS: BASO % 1.1 % (0.0-1.0); EOS # 0.1 10^3/uL (0.0-0.50); EOS % 3.2 % (0.0-3.0); IMMATURE GRANULOCYTE % 0.4 % (0-0); LYMPH # 0.9 10^3/uL (1.5-4.5); LYMPH % 30.9 % (24.0-44.0); MEAN CORPUSCULAR HEMOGLOBIN 32.5 pg (27.0-33.0); MEAN CORPUSCULAR HGB CONC 34.2 g/dl (32.0-36.5); MEAN CORPUSCULAR VOLUME 95.1 fl (80.0-96.0); MONO # 0.3 10^3/uL (0.0-0.8); MONO % 9.1 % (0.0-5.0); NEUTROPHILS # 1.6 10^3/uL (1.8-7.7); NEUTROPHILS % 55.3 % (36.0-66.0); PLATELET COUNT, AUTOMATED 106 10^3/uL (150-450); RED CELL DISTRIBUTION WIDTH 14.2 % (11.5-14.5); WHITE BLOOD COUNT 2.9 10^3/uL (4.0-10.0)
[2017-05-15 10:14] LABS: ALBUMIN 3.3 GM/DL (3.2-5.2); ALBUMIN/GLOBULIN RATIO 0.92 (1.00-1.93); BILIRUBIN,DIRECT 0.2 MG/DL (0.0-0.2); BILIRUBIN,TOTAL 0.5 MG/DL (0.2-1.0); CALCIUM LEVEL 8.6 MG/DL (8.5-10.1); CREATININE FOR GFR 1.12 MG/DL (0.55-1.02); GLOMERULAR FILTRATION RATE 54.8 (>51); POTASSIUM SERUM 4.6 MEQ/L (3.5-5.1); TOTAL PROTEIN 6.9 GM/DL (6.4-8.2)
[2017-05-15] MEDS ORDERED: NS 1,000 ML IV ONE (10:30)
[2017-05-15] MEDS ORDERED: ISOVUE-370 76% 100ML VIAL (Q9967) As Ordered ONE (10:45)
[2017-05-15] MEDS ORDERED: CEPHALEXIN 500 MG CAP PO ONE (12:15)
--- NOTE | 2017-05-15 12:24 | REP ---
CT ABDOMEN AND PELVIS WITH IV CONTRAST: 05/15/2017. Comparison: Noncontrast CT 04/28/2017. Clinical history: Abdominal pain, elevated lipase. Technique: Bolus of 100 mL Isovue 370 scanning through the abdomen and pelvis. Coronal and sagittal reconstructions provided. Findings: CT abdomen: Lung bases show minor dependent atelectasis but without effusion, infiltrate or other acute finding. Heart is enlarged with left atrial and ventricular enlargement. No pericardial thickening or effusion and no hiatal hernia. Stomach collapsed. Liver is not enlarged. There are clips in the gallbladder fossa having had prior cholecystectomy. There is no focal hepatic mass. Some lobulated contours of the liver and a prominent left lobe. No biliary dilatation. No adjacent ascites. Some mild splenomegaly, unchanged. No focal splenic lesion. Pancreatic head, body, and tail without acute findings. No dilatation of the duct. No calcification in a duct. No adjacent fluid or inflammatory changes to suggest pancreatitis or pseudocyst. Small bowel loops and colon without dilatation although there is distension of the right colon and hepatic flexure with stool. Stool and gas scattered in the left colon and transverse colon without dilatation. Small bowel loops grossly intact. There is an umbilical hernia again seen only containing omental fat without bowel herniation. This is unchanged. Some subcutaneous edema in the fat layer, unchanged. Aorta without aneurysm and has calcifications. No periaortic or other retroperitoneal lymphadenopathy. Degenerative disc and facet arthritic changes in the spine, unchanged. No destructive lesion or acute fracture. Visualized ribs intact. CT pelvis: SI joints with vacuum phenomenon and degenerative changes of the hips, pelvis and sacrum otherwise intact and unchanged. Minor hip arthritis as before. Kidneys show lobation. There is some vascular calcification in the renal hilum on the right. There is no stone, hydronephrosis, hydroureter or ureteral stone. No solid or cystic mass in the kidneys or perinephric fluid or periaortic pathologic sized lymphadenopathy. Small bowel loops intact in the abdomen or pelvis. No dilated distal ureters or ureteral stone. Bladder only minimally filled without stone or mass. Multiple pelvic phleboliths. Uterus anteverted, not enlarged. No adnexal or pelvic mass. Distal left colon, sigmoid and rectum unremarkable. No ventral or inguinal hernia. Impression: 1. No evidence of pancreatitis, ascites, adenopathy, pseudocyst or abscess in the pancreatic bed region. 2. No hepatomegaly, but enlarged left hepatic lobe with lobulated contours indicating chronic liver disease. Prior cholecystectomy. No biliary dilatation. Mild splenomegaly, unchanged. 3. The kidneys without obstruction, mass, cyst or other acute finding. No renal, ureteral or bladder stone. No abdominal or pelvic adenopathy, ascites or free air. 4. No pelvic ascites, mass or other acute finding. Some mild anasarca. Umbilical hernia with only omental fat. Stable examination. Signed by Juan Alberto Patel MD 05/15/2017 05:33 P
[2017-05-15] MEDS ORDERED: KEFL500C17 PO (12:38)
[2017-05-15 12:56] VITALS: BP 164/69
--- NOTE | 2017-05-18 06:56 | ED PDOC ---
Post-Departure Follow-Up dr beaulieu faxed formal report of ct abd/p for Julio Crandall MD May 18, 2017 06:56
== END 2017-05-15 12:57 | disposition home or self-care (01) ==
LOC: M ED 08:37
DX: N30.90 Cystitis, unspecified without hematuria (principal); I10 Essential (primary) hypertension; J45.909 Unspecified asthma, uncomplicated; G43.909 Migraine, unspecified, not intractable, without status migrainosus; G25.81 Restless legs syndrome; Z86.73 Personal history of transient ischemic attack (TIA), and cerebral infarction without residual deficits; Z87.442 Personal history of urinary calculi; Z79.899 Other long term (current) drug therapy; Z79.82 Long term (current) use of aspirin; Z79.51 Long term (current) use of inhaled steroids; Z88.8 Allergy status to other drugs, medicaments and biological substances; F17.210 Nicotine dependence, cigarettes, uncomplicated
CPT/HCPCS: 36415; 74177; 80048; 80076; 81001; 83605; 83690; 85025; 87086; 96361; 96374; 96375; 96376; 99284; J2405; Q9967

== ENCOUNTER → 2017-05-25 | Outpatient (CLI) | payer OTHER ==
[~2017-05-25] MED LIST changes: +KEFL500C17 PO
--- NOTE | 2017-05-25 11:43 | PFTRPT ---
Site: [facility], [address] [place], [address] ID: [id number] Name: WILLEM BALDWIN LEE Doctor: Pedro Pablo Paulino MD Tech: Justo Blanco RRT Age: 51 Sex: Female Race: Height: 71.00 Inches Weight: 369.00 Lbs BSA: 2.74 Diagnosis: I27.20 test meet the ATS standards for acceptability and repeatability. Pre-Bronch Post-Bronch Pred Actual %Pred Actual %Chng SPIROMETRY FVC (L) 4.43 3.56 80 FEV1 (L) 3.50 2.70 77 FEV1/FVC (%) 80 76 94 FEF 25% (L/sec) 5.95 6.18 103 FEF 50% (L/sec) 3.91 3.12 79 FEF 75% (L/sec) 1.43 0.79 54 FEF 25-75% (L/sec) 3.17 2.14 67 FEF Max (L/sec) 7.86 6.93 88 FIVC (L) 3.22 FIF 50% (L/sec) 4.70 4.27 90 FIF Max (L/sec) 4.44 MVV (L/min) 111 101 90 LUNG VOLUMES SVC (L) 3.96 3.83 96 IC (L) 2.63 3.40 129 ERV (L) 1.33 0.43 32 TGV (L) 3.47 2.80 80 RV (Pleth) (L) 2.14 2.36 110 TLC (Pleth) (L) 6.10 6.20 101 RV/TLC (Pleth) (%) 35 38 109 DIFFUSION DLCOunc (ml/min/mmHg) 25.54 15.07 58 DL/VA (ml/min/mmHg/L) 4.19 2.52 60 VA (L) 6.10 5.99 98 AIRWAYS RESISTANCE Raw (cmH2O/L/s) 1.86 1.24 66 Gaw (L/s/cmH2O) 1.03 0.82 79 sRaw (cmH2O*s) 4.76 4.87 102 sGaw (1/cmH2O*s) 0.20 0.21 103
== END ==
LOC: M CARPUL 11:01
PROVIDERS: ATTEND Family Medicine
DX: I27.20 Pulmonary hypertension, unspecified (principal)

== ENCOUNTER → 2017-05-26 | Outpatient (REF) | payer OTHER | LOC: M SFHCLERA 10:25 | PROVIDERS: ATTEND Family Medicine | DX: E11.319 Type 2 diabetes mellitus with unspecified diabetic retinopathy without macular edema (principal) ==

== ENCOUNTER → 2017-05-27 | Outpatient (REF) | payer OTHER ==
[2017-05-27 13:15] LABS: ANION GAP 6 MEQ/L (8-16); BLOOD UREA NITROGEN 23 MG/DL (7-18); CALCIUM LEVEL 8.9 MG/DL (8.5-10.1); CARBON DIOXIDE LEVEL 28 MEQ/L (21-32); CHLORIDE LEVEL 110 MEQ/L (98-107); CREATININE FOR GFR 0.92 MG/DL (0.55-1.02); GLOMERULAR FILTRATION RATE > 60.0 (>51); GLUCOSE, FASTING 150 MG/DL (70-105); POTASSIUM SERUM 4.5 MEQ/L (3.5-5.1); SODIUM LEVEL 144 MEQ/L (136-145)
== END ==
LOC: M SFHCLERA 11:02
PROVIDERS: ATTEND Family Medicine
DX: N18.3 Chronic kidney disease, stage 3 (moderate) (principal); E11.22 Type 2 diabetes mellitus with diabetic chronic kidney disease; E11.65 Type 2 diabetes mellitus with hyperglycemia; I12.9 Hypertensive chronic kidney disease with stage 1 through stage 4 chronic kidney disease, or unspecified chronic kidney disease; I50.32 Chronic diastolic (congestive) heart failure; F17.210 Nicotine dependence, cigarettes, uncomplicated; K21.9 Gastro-esophageal reflux disease without esophagitis; K74.69 Other cirrhosis of liver; G25.81 Restless legs syndrome; Z79.899 Other long term (current) drug therapy

== ENCOUNTER → 2017-06-10 | Outpatient (REF) | payer OTHER ==
[2017-06-10 16:34] LABS: ANION GAP 7 MEQ/L (8-16); BLOOD UREA NITROGEN 20 MG/DL (7-18); CARBON DIOXIDE LEVEL 27 MEQ/L (21-32); CHLORIDE LEVEL 110 MEQ/L (98-107); CREATININE FOR GFR 0.86 MG/DL (0.55-1.02); GLOMERULAR FILTRATION RATE > 60.0 (>51); GLUCOSE, FASTING 117 MG/DL (70-105); POTASSIUM SERUM 4.3 MEQ/L (3.5-5.1); SODIUM LEVEL 144 MEQ/L (136-145)
== END ==
LOC: M SFHCLERA 12:05
PROVIDERS: ATTEND Family Medicine
DX: I50.32 Chronic diastolic (congestive) heart failure (principal)

== ENCOUNTER 2017-07-19 20:53 | Observation (INO) | payer OTHER ==
[2017-07-19] MEDS: CETIRIZINE (ZyrTEC) 10 MG TAB PO (21:00)
[2017-07-19] MEDS: LACTULOSE 20 GM/30 ML SYRUP UD PO (21:00)
[2017-07-19] MEDS: NS 1,000 ML IV (23:30)
[2017-07-19 23:37] LABS: VENOUS BASE EXCESS -1.4 (-2.0-2.0); VENOUS HCO3 24.2 MEQ/L (23.0-27.0); VENOUS O2 SATURATION 72.4 % (60.0-80.0); VENOUS PARTIAL PRESSURE CO2 43.7 mmHg (38.0-50.0); VENOUS PARTIAL PRESSURE O2 40.7 mmHg (30.0-50.0); VENOUS PH 7.361 UNITS (7.330-7.430); VENOUS STANDARD HCO3 22.8 MEQ/L; VENOUS TOTAL CO2 25.5 MEQ/L (24.0-28.0)
[2017-07-19 23:43] LABS: BASO % 1.1 % (0.0-1.0); EOS # 0.1 10^3/uL (0.0-0.50); EOS % 3.9 % (0.0-3.0); HEMATOCRIT 36.2 % (36.0-47.0); IMMATURE GRANULOCYTE % 0.3 % (0-0); LYMPH # 1.6 10^3/uL (1.5-4.5); LYMPH % 44.5 % (24.0-44.0); MEAN CORPUSCULAR HEMOGLOBIN 32.7 pg (27.0-33.0); MEAN CORPUSCULAR HGB CONC 35.9 g/dl (32.0-36.5); MEAN CORPUSCULAR VOLUME 91.2 fl (80.0-96.0); MONO # 0.3 10^3/uL (0.0-0.8); MONO % 7.2 % (0.0-5.0); NEUTROPHILS # 1.6 10^3/uL (1.8-7.7); PLATELET COUNT, AUTOMATED 118 10^3/uL (150-450); RED BLOOD COUNT 3.97 10^6/uL (4.00-5.40); RED CELL DISTRIBUTION WIDTH 13.3 % (11.5-14.5); WHITE BLOOD COUNT 3.6 10^3/uL (4.0-10.0)
[2017-07-19] MEDS: IPRATROPIUM 0.5MG/ALBUTEROL 2.5MG INH SOL UD 3ML (DUONEB)(J7620) NEB (23:44)
[2017-07-19 23:53] LABS: ESTIMATED AVERAGE GLUCOSE 312 MG/DL (60-110); HEMOGLOBIN A1c 12.5 %
[2017-07-20 00:03] LABS: AMPHETAMINES LEVEL URINE NEGATIVE (NEGATIVE); BARBITURATES URINE NEGATIVE (NEGATIVE); BENZODIAZEPINES URINE NEGATIVE (NEGATIVE); CANNABINOIDS URINE NEGATIVE (NEGATIVE); COCAINE METABOLITE URINE NEGATIVE (NEGATIVE); METHADONE URINE NEGATIVE (NEGATIVE); OPIATES URINE NEGATIVE (NEGATIVE); PHENCYCLIDINE URINE NEGATIVE (NEGATIVE)
[2017-07-20 00:09] LABS: ACETONE/KETONE 1.57 MG/DL (<2.81); ALBUMIN 3.1 GM/DL (3.2-5.2); ALBUMIN/GLOBULIN RATIO 0.97 (1.00-1.93); ALKALINE PHOSPHATASE 111 U/L (45-117); ALT/SGPT 24 U/L (12-78); ANION GAP 7 MEQ/L (8-16); AST/SGOT 23 U/L (7-37); BILIRUBIN,DIRECT 0.2 MG/DL (0.0-0.2); BILIRUBIN,TOTAL 0.6 MG/DL (0.2-1.0); BLOOD UREA NITROGEN 16 MG/DL (7-18); C REACTIVE PROTEIN QUANTITATIV < 0.30 MG/DL (0.00-0.30); CARBON DIOXIDE LEVEL 27 MEQ/L (21-32); CHLORIDE LEVEL 105 MEQ/L (98-107); CK-MB VALUE MASS 2.4 NG/ML (0.0-3.6); CPK CREATINE PHOSPHOKINASE 116 U/L (26-192); CREATININE FOR GFR 0.88 MG/DL (0.55-1.02); GLOMERULAR FILTRATION RATE > 60.0 (>51); LIPASE 426 U/L (73-393); MAGNESIUM LEVEL 1.7 MG/DL (1.8-2.4); MB/CK RELATIVE INDEX 2.06 (< OR =4); POTASSIUM SERUM 4.3 MEQ/L (3.5-5.1); SODIUM LEVEL 139 MEQ/L (136-145); TOTAL PROTEIN 6.3 GM/DL (6.4-8.2); TROPONIN I < 0.02 NG/ML (< 0.10)
[2017-07-20 00:29] LABS: ETHYL ALCOHOL (ETHANOL) < 0.003 % (0.000-0.010); GLUCOSE, FASTING 455 MG/DL (70-105)
[2017-07-20] MEDS ORDERED: ONDANSETRON 4 MG ORAL DISINTEGRATING TAB (S0181) PO (00:30)
[2017-07-20] MEDS ORDERED: SODIUM CHLORIDE NASAL 0.65% SPRAY BTL (OCEAN) (00:30)
[2017-07-20] MEDS ORDERED: GLUCOSE 4 GM CHEW TABLET PO (00:30)
[2017-07-20] MEDS ORDERED: IPRATROPIUM 0.5MG/ALBUTEROL 2.5MG INH SOL UD 3ML (DUONEB)(J7620) NEB (00:30)
[2017-07-20] MEDS ORDERED: DICYCLOMINE 10 MG CAP PO (00:30)
[2017-07-20] MEDS ORDERED: GLUCAGON FOR INJ 1 MG VIAL (J1610) SC (00:30)
[2017-07-20] MEDS ORDERED: FLUTICASONE PROP 0.05% NASAL SPRAY 16 GM (FLONASE) (00:30)
[2017-07-20] MEDS ORDERED: MECLIZINE 25 MG TABLET PO (00:30)
[2017-07-20] MEDS ORDERED: NYSTATIN 100,000 UNITS/GM TOPICAL PWD 15 GM TOP (00:30)
[2017-07-20] MEDS ORDERED: DEXTROSE 50% 50 ML SYRINGE IV (00:30)
[2017-07-20] MEDS ORDERED: ALBUTEROL 90 MCG/ACT 8GM HFA INHALER INH (00:30)
[2017-07-20 01:08] LABS: OSMOLALITY SERUM 314 MOSM/KG (275-295)
[2017-07-20] MEDS: NS 1,000 ML IV (01:25)
[2017-07-20] MEDS: IPRATROPIUM 0.5MG/ALBUTEROL 2.5MG INH SOL UD 3ML (DUONEB)(J7620) NEB ×4 (02:17→19:50)
[2017-07-20 02:20] LABS: BEDSIDE GLUCOSE 436 MG/DL (70-105)
[2017-07-20] MEDS: CARVedilol 12.5 MG TAB PO ×3 (02:50→21:00)
[2017-07-20] MEDS: **hydrALAZINE** 50 MG TAB PO ×2 (02:50→08:20)
[2017-07-20] MEDS: PRAMIPEXOLE (MIRAPEX) 0.125 MG TAB PO ×2 (02:51→21:52)
[2017-07-20] MEDS: MAGNESIUM OXIDE 400 MG TAB (MAG-OX) PO ×2 (02:51→21:48)
[2017-07-20] MEDS: MONTELUKAST 10 MG TAB PO ×2 (02:52→21:48)
[2017-07-20] MEDS: rOPINIRole 1MG TAB PO ×2 (02:52→21:49)
[2017-07-20] MEDS: GABAPENTIN 300 MG CAP PO ×4 (02:52→21:48)
[2017-07-20] MEDS: rifAXIMin 550 MG TAB (XIFAXAN) PO ×3 (02:53→21:48)
[2017-07-20] MEDS: HumaLOG INSULIN (NovoLOG) PER UNIT SC ×5 (02:54→21:50)
[2017-07-20] MEDS: TOPIRAMATE (TopAMAX) 25 MG TAB PO ×2 (04:15→21:48)
[2017-07-20] MEDS: LEVEMIR (INSULIN DETEMIR) 1 UNITS/0.01ML SC ×2 (04:16→21:50)
[2017-07-20] MEDS: hydrOXYzine 50 MG TAB PO (04:19)
[2017-07-20 04:20] LABS: BEDSIDE GLUCOSE 516 MG/DL (70-105)
[2017-07-20 05:47] LABS: BEDSIDE GLUCOSE 490 MG/DL (70-105)
[2017-07-20 07:04] LABS: BEDSIDE GLUCOSE 490 MG/DL (70-105)
[2017-07-20 07:35] LABS: VENOUS HCO3 20.6 MEQ/L (23.0-27.0); VENOUS O2 SATURATION 99.1 % (60.0-80.0); VENOUS PARTIAL PRESSURE CO2 28.7 mmHg (38.0-50.0); VENOUS PH 7.473 UNITS (7.330-7.430); VENOUS STANDARD HCO3 22.8 MEQ/L; VENOUS TOTAL CO2 21.4 MEQ/L (24.0-28.0)
[2017-07-20 07:41] LABS: HEMOGLOBIN 11.2 g/dl (12.0-16.0); MEAN CORPUSCULAR HGB CONC 36.1 g/dl (32.0-36.5); MEAN CORPUSCULAR VOLUME 91.4 fl (80.0-96.0); RED BLOOD COUNT 3.39 10^6/uL (4.00-5.40); RED CELL DISTRIBUTION WIDTH 13.7 % (11.5-14.5); WHITE BLOOD COUNT 3.1 10^3/uL (4.0-10.0)
[2017-07-20 07:46] LABS: IMMATURE PLATELET FRACTION % 2.1 % (0.0-9.6); PLATELET COUNT, AUTOMATED 89 10^3/uL (150-450); PLATELET F 87
[2017-07-20 07:57] LABS: ANION GAP 8 MEQ/L (8-16); BLOOD UREA NITROGEN 21 MG/DL (7-18); CALCIUM LEVEL 8.4 MG/DL (8.5-10.1); CARBON DIOXIDE LEVEL 21 MEQ/L (21-32); CHLORIDE LEVEL 110 MEQ/L (98-107); CREATININE FOR GFR 0.92 MG/DL (0.55-1.02); GLOMERULAR FILTRATION RATE > 60.0 (>51); MAGNESIUM LEVEL 1.9 MG/DL (1.8-2.4); POTASSIUM SERUM 4.2 MEQ/L (3.5-5.1); SODIUM LEVEL 139 MEQ/L (136-145)
[2017-07-20 08:02] LABS: GLUCOSE, FASTING 476 MG/DL (70-105)
[2017-07-20] MEDS: FERROUS SULFATE 325MG TAB PO (08:20)
[2017-07-20] MEDS: ASPIRIN 81 MG ENTERIC TAB PO (08:21)
[2017-07-20] MEDS: VENLAFAXINE **XR** 75MG CAPSULE PO (08:21)
[2017-07-20] MEDS: LACTULOSE 20 GM/30 ML SYRUP UD PO ×5 (08:21→21:48)
[2017-07-20] MEDS: OMEPRAZOLE 20 MG CAP PO (08:21)
[2017-07-20] MEDS: SPIRONOLACTONE 12.5MG PER 1/2 TABLET PO (08:23)
[2017-07-20] MEDS: HEPARIN SOD (PORCINE) 5000 UNITS/ML VIAL SC ×2 (08:23→09:00)
[2017-07-20 08:54] LABS: LIPASE 404 U/L (73-393)
[2017-07-20 12:06] LABS: BEDSIDE GLUCOSE 381 MG/DL (70-105)
[2017-07-20] MEDS: **hydrALAZINE** 10 MG TAB PO ×3 (12:14→21:00)
[2017-07-20] MEDS: LOSARTAN 50 MG TAB PO (12:14)
[2017-07-20] MEDS: oxyCODONE 5MG TAB PO (13:21)
[2017-07-20 16:50] LABS: BEDSIDE GLUCOSE 362 MG/DL (70-105)
[2017-07-20 21:02] LABS: BEDSIDE GLUCOSE 324 MG/DL (70-105)
[2017-07-20] MEDS: CETIRIZINE (ZyrTEC) 10 MG TAB PO (21:48)
[2017-07-20] MEDS: MICONAZOLE TOPICAL 2% CREAM 15GM TOP (21:49)
[2017-07-21] MEDS: IPRATROPIUM 0.5MG/ALBUTEROL 2.5MG INH SOL UD 3ML (DUONEB)(J7620) NEB ×4 (02:00→19:41)
[2017-07-21 07:07] LABS: BEDSIDE GLUCOSE 238 MG/DL (70-105)
[2017-07-21 07:59] LABS: HEMATOCRIT 33.6 % (36.0-47.0); HEMOGLOBIN 11.9 g/dl (12.0-16.0); MEAN CORPUSCULAR HEMOGLOBIN 32.6 pg (27.0-33.0); MEAN CORPUSCULAR HGB CONC 35.4 g/dl (32.0-36.5); MEAN CORPUSCULAR VOLUME 92.1 fl (80.0-96.0); RED BLOOD COUNT 3.65 10^6/uL (4.00-5.40); RED CELL DISTRIBUTION WIDTH 13.9 % (11.5-14.5); WHITE BLOOD COUNT 3.6 10^3/uL (4.0-10.0)
[2017-07-21 08:03] LABS: PLATELET COUNT, AUTOMATED 91 10^3/uL (150-450); PLATELET F 2.7
[2017-07-21 08:26] LABS: ANION GAP 7 MEQ/L (8-16); BLOOD UREA NITROGEN 29 MG/DL (7-18); CALCIUM LEVEL 8.8 MG/DL (8.5-10.1); CARBON DIOXIDE LEVEL 22 MEQ/L (21-32); CHLORIDE LEVEL 111 MEQ/L (98-107); GLOMERULAR FILTRATION RATE > 60.0 (>51); GLUCOSE, FASTING 223 MG/DL (70-105); SODIUM LEVEL 140 MEQ/L (136-145)
[2017-07-21] MEDS: VENLAFAXINE **XR** 75MG CAPSULE PO (09:30)
[2017-07-21] MEDS: rifAXIMin 550 MG TAB (XIFAXAN) PO ×2 (09:30→20:31)
[2017-07-21] MEDS: GABAPENTIN 300 MG CAP PO ×3 (09:34→20:32)
[2017-07-21] MEDS: SPIRONOLACTONE 12.5MG PER 1/2 TABLET PO (09:34)
[2017-07-21] MEDS: FERROUS SULFATE 325MG TAB PO (09:34)
[2017-07-21] MEDS: OMEPRAZOLE 20 MG CAP PO (09:34)
[2017-07-21] MEDS: ASPIRIN 81 MG ENTERIC TAB PO (09:34)
[2017-07-21] MEDS: LACTULOSE 20 GM/30 ML SYRUP UD PO ×3 (09:35→20:20)
[2017-07-21] MEDS: HumaLOG INSULIN (NovoLOG) PER UNIT SC ×4 (09:43→20:34)
[2017-07-21] MEDS: **hydrALAZINE** 10 MG TAB PO (09:46)
[2017-07-21] MEDS: MICONAZOLE TOPICAL 2% CREAM 15GM TOP ×2 (09:48→11:47)
[2017-07-21] MEDS: LOSARTAN 50 MG TAB PO (09:49)
[2017-07-21] MEDS: CARVedilol 12.5 MG TAB PO ×2 (09:49→20:33)
[2017-07-21] MEDS: NYSTATIN 100,000 UNITS/GM TOPICAL PWD 15 GM TOP ×2 (11:44→23:36)
[2017-07-21 12:03] LABS: BEDSIDE GLUCOSE 244 MG/DL (70-105)
[2017-07-21] MEDS: CLOTRIMAZOLE 1% TOPICAL CREAM 30GM TOP ×2 (14:52→23:35)
[2017-07-21 16:45] LABS: BEDSIDE GLUCOSE 308 MG/DL (70-105)
[2017-07-21 20:28] LABS: BEDSIDE GLUCOSE 302 MG/DL (70-105)
[2017-07-21] MEDS: rOPINIRole 1MG TAB PO (20:32)
[2017-07-21] MEDS: TOPIRAMATE (TopAMAX) 25 MG TAB PO (20:32)
[2017-07-21] MEDS: PRAMIPEXOLE (MIRAPEX) 0.125 MG TAB PO (20:33)
[2017-07-21] MEDS: CETIRIZINE (ZyrTEC) 10 MG TAB PO (20:33)
[2017-07-21] MEDS: MONTELUKAST 10 MG TAB PO (20:33)
[2017-07-21] MEDS: MAGNESIUM OXIDE 400 MG TAB (MAG-OX) PO (20:33)
[2017-07-21] MEDS: LEVEMIR (INSULIN DETEMIR) 1 UNITS/0.01ML SC (20:34)
[2017-07-22] MEDS: hydrOXYzine 50 MG TAB PO (02:41)
[2017-07-22 07:02] LABS: HEMATOCRIT 32.9 % (36.0-47.0); HEMOGLOBIN 11.6 g/dl (12.0-16.0); MEAN CORPUSCULAR HEMOGLOBIN 32.6 pg (27.0-33.0); MEAN CORPUSCULAR HGB CONC 35.3 g/dl (32.0-36.5); MEAN CORPUSCULAR VOLUME 92.4 fl (80.0-96.0); RED BLOOD COUNT 3.56 10^6/uL (4.00-5.40); RED CELL DISTRIBUTION WIDTH 13.8 % (11.5-14.5); WHITE BLOOD COUNT 3.3 10^3/uL (4.0-10.0)
[2017-07-22 07:05] LABS: PLATELET COUNT, AUTOMATED 90 10^3/uL (150-450)
[2017-07-22 07:29] LABS: ANION GAP 8 MEQ/L (8-16); BLOOD UREA NITROGEN 25 MG/DL (7-18); CALCIUM LEVEL 8.2 MG/DL (8.5-10.1); CARBON DIOXIDE LEVEL 21 MEQ/L (21-32); CHLORIDE LEVEL 113 MEQ/L (98-107); CREATININE FOR GFR 0.81 MG/DL (0.55-1.02); GLOMERULAR FILTRATION RATE > 60.0 (>51); GLUCOSE, FASTING 270 MG/DL (70-105); MAGNESIUM LEVEL 1.9 MG/DL (1.8-2.4); POTASSIUM SERUM 4.5 MEQ/L (3.5-5.1); SODIUM LEVEL 142 MEQ/L (136-145)
[2017-07-22] MEDS: OMEPRAZOLE 20 MG CAP PO (08:35)
[2017-07-22] MEDS: GABAPENTIN 300 MG CAP PO (08:35)
[2017-07-22] MEDS: FERROUS SULFATE 325MG TAB PO (08:35)
[2017-07-22] MEDS: SPIRONOLACTONE 12.5MG PER 1/2 TABLET PO (08:35)
[2017-07-22] MEDS: CLOTRIMAZOLE 1% TOPICAL CREAM 30GM TOP (08:36)
[2017-07-22] MEDS: HumaLOG INSULIN (NovoLOG) PER UNIT SC (08:36)
[2017-07-22] MEDS: NYSTATIN 100,000 UNITS/GM TOPICAL PWD 15 GM TOP (08:37)
[2017-07-22] MEDS: IPRATROPIUM 0.5MG/ALBUTEROL 2.5MG INH SOL UD 3ML (DUONEB)(J7620) NEB (09:26)
[2017-07-22] MEDS: ASPIRIN 81 MG ENTERIC TAB PO (09:38)
[2017-07-22] MEDS: CARVedilol 12.5 MG TAB PO (09:38)
[2017-07-22] MEDS: LOSARTAN 50 MG TAB PO (09:39)
[2017-07-22] MEDS: rifAXIMin 550 MG TAB (XIFAXAN) PO (09:39)
== END 2017-07-22 09:50 | disposition home or self-care (01) ==
LOC: M ED INP 07-20 00:42 → M MSPAV 07-20 07:11 → M ED 20:53 → M PED 07-21 21:59
DX: E11.65 Type 2 diabetes mellitus with hyperglycemia (principal); Z91.14 Patient's other noncompliance with medication regimen; D69.6 Thrombocytopenia, unspecified; D64.9 Anemia, unspecified; J06.9 Acute upper respiratory infection, unspecified; I10 Essential (primary) hypertension; I27.20 Pulmonary hypertension, unspecified; K75.81 Nonalcoholic steatohepatitis (NASH); G25.81 Restless legs syndrome; E11.40 Type 2 diabetes mellitus with diabetic neuropathy, unspecified; F32.9 Major depressive disorder, single episode, unspecified; K21.9 Gastro-esophageal reflux disease without esophagitis; Z87.442 Personal history of urinary calculi; M19.90 Unspecified osteoarthritis, unspecified site; Z79.899 Other long term (current) drug therapy; Z79.4 Long term (current) use of insulin; Z79.82 Long term (current) use of aspirin; Z88.8 Allergy status to other drugs, medicaments and biological substances; F17.210 Nicotine dependence, cigarettes, uncomplicated
CPT/HCPCS: 71046

== ENCOUNTER → 2017-08-19 | Outpatient (REF) | payer OTHER ==
[2017-08-19 17:43] LABS: ANION GAP 8 MEQ/L (8-16); BLOOD UREA NITROGEN 21 MG/DL (7-18); CALCIUM LEVEL 9.5 MG/DL (8.5-10.1); CARBON DIOXIDE LEVEL 25 MEQ/L (21-32); CHLORIDE LEVEL 104 MEQ/L (98-107); CREATININE FOR GFR 1.04 MG/DL (0.55-1.30); GLOMERULAR FILTRATION RATE 59.7 (>51); POTASSIUM SERUM 4.6 MEQ/L (3.5-5.1); SODIUM LEVEL 137 MEQ/L (136-145)
[2017-08-19 17:48] LABS: GLUCOSE, FASTING 580 MG/DL (70-100)
[2017-08-19 18:26] LABS: ESTIMATED AVERAGE GLUCOSE 358 MG/DL (60-110); HEMOGLOBIN A1c 14.1 %
== END ==
LOC: M SFHCLERA 14:12
DX: E11.319 Type 2 diabetes mellitus with unspecified diabetic retinopathy without macular edema (principal); I10 Essential (primary) hypertension

== ENCOUNTER 2017-08-26 12:05 | Emergency (ER) | payer OTHER ==
[2017-08-26] MEDS: NS 1,000 ML IV (13:00)
[2017-08-26 13:42] LABS: BASO % 0.8 % (0.0-1.0); EOS # 0.1 10^3/uL (0.0-0.50); EOS % 2.4 % (0.0-3.0); HEMOGLOBIN 13.1 g/dl (12.0-16.0); IMMATURE GRANULOCYTE % 0.4 % (0-3.0); LYMPH # 1.1 10^3/uL (1.5-4.5); LYMPH % 21.1 % (24.0-44.0); MEAN CORPUSCULAR HEMOGLOBIN 33.3 pg (27.0-33.0); MEAN CORPUSCULAR HGB CONC 36.4 g/dl (32.0-36.5); MEAN CORPUSCULAR VOLUME 91.6 fl (80.0-96.0); MONO # 0.3 10^3/uL (0.0-0.8); NEUTROPHILS # 3.5 10^3/uL (1.8-7.7); NEUTROPHILS % 69.3 % (36.0-66.0); PLATELET COUNT, AUTOMATED 100 10^3/uL (150-450); RED BLOOD COUNT 3.93 10^6/uL (4.00-5.40); RED CELL DISTRIBUTION WIDTH 12.7 % (11.5-14.5)
[2017-08-26 13:48] LABS: OSMOLALITY SERUM 305 MOSM/KG (275-295)
[2017-08-26 13:49] LABS: KETONE, URINE AUTO RFX NEGATIVE (NEGATIVE); LEUKOCYTE ESTERASE UR AUTO RFX NEGATIVE (NEGATIVE); NITRITE, URINE AUTO RFX NEGATIVE (NEGATIVE); RBC, URINE AUTO RFX 1 /HPF (0-3); SPECIFIC GRAVITY UR AUTO RFX 1.021 (1.002-1.035); SQUAM EPITHELIAL CELL UR AURFX 1 /HPF (0-6); WBC, URINE AUTO RFX 1 /HPF (0-3)
[2017-08-26 14:01] LABS: AMMONIA 83 uMOL/L (<32)
[2017-08-26 14:03] LABS: LACTIC ACID SEPSIS PROTOCOL 1.5 MMOL/L (0.4-2.0)
[2017-08-26 14:07] LABS: ALBUMIN/GLOBULIN RATIO 0.88 (1.00-1.93); ALKALINE PHOSPHATASE 114 U/L (45-117); ALT/SGPT 24 U/L (12-78); ANION GAP 7 MEQ/L (8-16); AST/SGOT 24 U/L (7-37); BILIRUBIN,DIRECT 0.2 MG/DL (0.0-0.2); BILIRUBIN,TOTAL 0.8 MG/DL (0.2-1.0); BLOOD UREA NITROGEN 25 MG/DL (7-18); CALCIUM LEVEL 9.1 MG/DL (8.5-10.1); CARBON DIOXIDE LEVEL 24 MEQ/L (21-32); CHLORIDE LEVEL 104 MEQ/L (98-107); CREATININE FOR GFR 1.07 MG/DL (0.55-1.30); GLOMERULAR FILTRATION RATE 57.8 (>51); GLUCOSE, FASTING 395 MG/DL (70-100); LIPASE 441 U/L (73-393); POTASSIUM SERUM 4.5 MEQ/L (3.5-5.1); SODIUM LEVEL 135 MEQ/L (136-145); TOTAL PROTEIN 6.4 GM/DL (6.4-8.2)
[2017-08-28 09:18] LABS: BEDSIDE GLUCOSE 435 MG/DL (70-105)
== END 2017-08-26 16:16 | disposition home or self-care (01) ==
LOC: M ED 12:05
DX: E11.65 Type 2 diabetes mellitus with hyperglycemia (principal); E86.0 Dehydration; I10 Essential (primary) hypertension; J44.9 Chronic obstructive pulmonary disease, unspecified; K21.9 Gastro-esophageal reflux disease without esophagitis; F33.9 Major depressive disorder, recurrent, unspecified; K74.60 Unspecified cirrhosis of liver; G43.909 Migraine, unspecified, not intractable, without status migrainosus; G47.33 Obstructive sleep apnea (adult) (pediatric); Z79.899 Other long term (current) drug therapy; Z79.82 Long term (current) use of aspirin; Z79.51 Long term (current) use of inhaled steroids; Z79.4 Long term (current) use of insulin; Z88.8 Allergy status to other drugs, medicaments and biological substances; F17.210 Nicotine dependence, cigarettes, uncomplicated
CPT/HCPCS: 93005

== ENCOUNTER → 2017-09-10 | Outpatient (CLI) | payer OTHER ==
[2017-09-10 21:00] LABS: TOTAL 25(OH) VITAMIN D 12.6 NG/ML (30.0-100.0); VITAMIN B12 LEVEL 383 PG/ML (247-911)
[2017-09-10 21:02] LABS: CHOLESTEROL LEVEL 161 MG/DL (<200); CHOLESTEROL RISK RATIO 3.354 (<5); HDL CHOLESTEROL 48 MG/DL (>40); LDL CHOLESTEROL 63.2 MG/DL (<100); NON-HDL-C 113 MG/DL; TRIGLYCERIDES LEVEL 249 MG/DL (<150)
== END ==
LOC: M LRY 16:05
DX: F33.0 Major depressive disorder, recurrent, mild (principal)
CPT/HCPCS: 84443

== ENCOUNTER 2017-10-12 00:25 | Inpatient (IN) | payer OTHER ==
[2017-10-12 01:14] LABS: BASO % 0.5 % (0.0-1.0); EOS # 0.1 10^3/uL (0.0-0.50); EOS % 1.4 % (0.0-3.0); HEMATOCRIT 36.1 % (36.0-47.0); HEMOGLOBIN 12.8 g/dl (12.0-15.5); IMMATURE GRANULOCYTE % 0.2 % (0-3.0); LYMPH # 0.8 10^3/uL (1.5-4.5); LYMPH % 13.4 % (24.0-44.0); MEAN CORPUSCULAR HEMOGLOBIN 33.2 pg (27.0-33.0); MEAN CORPUSCULAR HGB CONC 35.5 g/dl (32.0-36.5); MEAN CORPUSCULAR VOLUME 93.5 fl (80.0-96.0); MONO # 0.4 10^3/uL (0.0-0.8); NEUTROPHILS # 4.4 10^3/uL (1.8-7.7); NEUTROPHILS % 77.5 % (36.0-66.0); RED BLOOD COUNT 3.86 10^6/uL (4.00-5.40); RED CELL DISTRIBUTION WIDTH 12.2 % (11.5-14.5); WHITE BLOOD COUNT 5.7 10^3/uL (4.0-10.0)
[2017-10-12 01:32] LABS: AMMONIA 98 uMOL/L (<32)
[2017-10-12] MEDS: ALBUTEROL SULFATE 2.5 MG/0.5 ML INH NEB SOLN NEB (01:32)
[2017-10-12 01:35] LABS: IMMATURE PLATELET FRACTION % 3.1 % (0.0-9.6); PLATELET COUNT, AUTOMATED 85 10^3/uL (150-450)
[2017-10-12 01:35] LABS: LACTIC ACID SEPSIS PROTOCOL 1.4 MMOL/L (0.4-2.0)
[2017-10-12 01:46] LABS: ALBUMIN 2.9 GM/DL (3.2-5.2); ALBUMIN/GLOBULIN RATIO 0.85 (1.00-1.93); ALKALINE PHOSPHATASE 126 U/L (45-117); ALT/SGPT 26 U/L (12-78); ANION GAP 7 MEQ/L (8-16); AST/SGOT 30 U/L (7-37); BILIRUBIN,DIRECT 0.3 MG/DL (0.0-0.2); BILIRUBIN,TOTAL 0.9 MG/DL (0.2-1.0); BLOOD UREA NITROGEN 25 MG/DL (7-18); CALCIUM LEVEL 8.8 MG/DL (8.5-10.1); CARBON DIOXIDE LEVEL 22 MEQ/L (21-32); CHLORIDE LEVEL 104 MEQ/L (98-107); CREATININE FOR GFR 1.12 MG/DL (0.55-1.30); GLOMERULAR FILTRATION RATE 54.8 (>51); POTASSIUM SERUM 4.7 MEQ/L (3.5-5.1); SODIUM LEVEL 133 MEQ/L (136-145); TOTAL PROTEIN 6.3 GM/DL (6.4-8.2)
[2017-10-12 01:50] LABS: GLUCOSE, FASTING 622 MG/DL (70-100)
[2017-10-12 02:10] LABS: INFLUENZA A AMPLIFICATION NEGATIVE (NEGATIVE); INFLUENZA B AMPLIFICATION NEGATIVE (NEGATIVE)
[2017-10-12] MEDS: HumuLIN R (REGULAR) INSULIN (NovoLIN R) **100U/ML** PER UNIT IV (02:19)
[2017-10-12] MEDS: LACTULOSE 20 GM/30 ML SYRUP UD PO ×4 (02:20→20:22)
[2017-10-12] MEDS ORDERED: GLUCOSE 4 GM CHEW TABLET PO (03:00)
[2017-10-12] MEDS ORDERED: DEXTROSE 50% 50 ML SYRINGE IV (03:00)
[2017-10-12] MEDS ORDERED: GLUCAGON FOR INJ 1 MG VIAL (J1610) SC (03:00)
[2017-10-12] MEDS ORDERED: ONDANSETRON 4MG/2ML VIAL (J2405) IV (03:00)
[2017-10-12] MEDS: NS 1,000 ML IV (03:43)
[2017-10-12] MEDS ORDERED: MECLIZINE 25 MG TABLET PO (06:45)
[2017-10-12] MEDS ORDERED: ALBUTEROL 90 MCG/ACT 8GM HFA INHALER INH (06:45)
[2017-10-12] MEDS ORDERED: SODIUM CHLORIDE NASAL 0.65% SPRAY BTL (OCEAN) (06:45)
[2017-10-12] MEDS ORDERED: ONDANSETRON 4 MG ORAL DISINTEGRATING TAB (S0181) PO (06:45)
[2017-10-12] MEDS: HumaLOG INSULIN (NovoLOG) PER UNIT SC ×7 (07:45→20:23)
[2017-10-12] MEDS: PANTOPRAZOLE 40MG TAB (PROTONIX) PO (09:00)
[2017-10-12] MEDS: CARVedilol 12.5 MG TAB PO ×2 (09:21→20:24)
[2017-10-12] MEDS: VITAMIN D 50,000 UNITS CAPSULE (ERGOCALCIFEROL 1.25MG) PO (09:21)
[2017-10-12] MEDS: rOPINIRole 1MG TAB PO ×2 (09:22→20:24)
[2017-10-12] MEDS: ENOXAPARIN 30 MG/0.3 ML SYR (J1650) SC (09:22)
[2017-10-12] MEDS: ASPIRIN 81 MG ENTERIC TAB PO (09:22)
[2017-10-12] MEDS: OMEPRAZOLE 20 MG CAP PO (09:22)
[2017-10-12] MEDS: rifAXIMin 550 MG TAB (XIFAXAN) PO ×2 (09:22→20:23)
[2017-10-12] MEDS: GABAPENTIN 300 MG CAP PO ×3 (09:22→20:23)
[2017-10-12 09:26] LABS: HEMATOCRIT 32.4 % (36.0-47.0); HEMOGLOBIN 11.6 g/dl (12.0-15.5); MEAN CORPUSCULAR HEMOGLOBIN 33.2 pg (27.0-33.0); MEAN CORPUSCULAR HGB CONC 35.8 g/dl (32.0-36.5); MEAN CORPUSCULAR VOLUME 92.8 fl (80.0-96.0); RED BLOOD COUNT 3.49 10^6/uL (4.00-5.40); RED CELL DISTRIBUTION WIDTH 12.3 % (11.5-14.5); WHITE BLOOD COUNT 5.8 10^3/uL (4.0-10.0)
[2017-10-12 09:31] LABS: PLATELET COUNT, AUTOMATED 85 10^3/uL (150-450)
[2017-10-12 09:50] LABS: ANION GAP 7 MEQ/L (8-16); BLOOD UREA NITROGEN 30 MG/DL (7-18); CALCIUM LEVEL 8.4 MG/DL (8.5-10.1); CARBON DIOXIDE LEVEL 22 MEQ/L (21-32); CHLORIDE LEVEL 108 MEQ/L (98-107); CREATININE FOR GFR 1.11 MG/DL (0.55-1.30); GLOMERULAR FILTRATION RATE 55.4 (>51); POTASSIUM SERUM 4.3 MEQ/L (3.5-5.1); SODIUM LEVEL 137 MEQ/L (136-145)
[2017-10-12 09:57] LABS: GLUCOSE, FASTING 572 MG/DL (70-100)
[2017-10-12 10:52] LABS: TROPONIN I < 0.02 NG/ML (< 0.10)
[2017-10-12 11:24] LABS: ESTIMATED AVERAGE GLUCOSE 384 MG/DL (60-110)
[2017-10-12 12:05] LABS: BEDSIDE GLUCOSE 530 MG/DL (70-105)
[2017-10-12 12:05] LABS: BEDSIDE GLUCOSE 510 MG/DL (70-105)
[2017-10-12 12:05] LABS: BEDSIDE GLUCOSE 541 MG/DL (70-105)
[2017-10-12 12:05] LABS: BEDSIDE GLUCOSE 500 MG/DL (70-105)
[2017-10-12 12:14] LABS: BEDSIDE GLUCOSE 576 MG/DL (70-105)
[2017-10-12 14:24] LABS: BEDSIDE GLUCOSE 585 MG/DL (70-105)
[2017-10-12 17:11] LABS: BEDSIDE GLUCOSE 455 MG/DL (70-105)
[2017-10-12] MEDS: IPRATROPIUM 0.5MG/ALBUTEROL 2.5MG INH SOL UD 3ML (DUONEB)(J7620) INH (18:06)
[2017-10-12] MEDS: MAGNESIUM OXIDE 400 MG TAB (MAG-OX) PO (20:23)
[2017-10-12] MEDS: TOPIRAMATE (TopAMAX) 25 MG TAB PO (20:24)
[2017-10-12] MEDS: CETIRIZINE (ZyrTEC) 10 MG TAB PO (20:24)
[2017-10-12] MEDS: ACETAMINOPHEN TAB 650MG DOSE (2X325MG) PO (22:51)
[2017-10-12 22:59] LABS: BEDSIDE GLUCOSE 374 MG/DL (70-105)
[2017-10-13] MEDS: ACETAMINOPHEN 500 MG TAB PO ×3 (01:46→19:45)
[2017-10-13] MEDS ORDERED: SLF 3 ML SYR IV (02:30)
[2017-10-13] MEDS: SLF 3 ML SYR IV ×3 (04:00→20:35)
[2017-10-13 05:29] LABS: HEMATOCRIT 30.9 % (36.0-47.0); MEAN CORPUSCULAR HEMOGLOBIN 33.6 pg (27.0-33.0); MEAN CORPUSCULAR HGB CONC 35.6 g/dl (32.0-36.5); MEAN CORPUSCULAR VOLUME 94.5 fl (80.0-96.0); RED BLOOD COUNT 3.27 10^6/uL (4.00-5.40); RED CELL DISTRIBUTION WIDTH 12.2 % (11.5-14.5); WHITE BLOOD COUNT 4.5 10^3/uL (4.0-10.0)
[2017-10-13 05:30] LABS: PLATELET COUNT, AUTOMATED 77 10^3/uL (150-450)
[2017-10-13 05:31] LABS: IMMATURE PLATELET FRACTION % 3.8 % (0.0-9.6)
[2017-10-13 05:42] LABS: AMMONIA 65 uMOL/L (<32)
[2017-10-13 05:49] LABS: ALBUMIN 2.5 GM/DL (3.2-5.2); ALBUMIN/GLOBULIN RATIO 0.83 (1.00-1.93); ALKALINE PHOSPHATASE 99 U/L (45-117); ALT/SGPT 23 U/L (12-78); ANION GAP 7 MEQ/L (8-16); AST/SGOT 27 U/L (7-37); BILIRUBIN,TOTAL 0.7 MG/DL (0.2-1.0); BLOOD UREA NITROGEN 29 MG/DL (7-18); CALCIUM LEVEL 8.5 MG/DL (8.5-10.1); CARBON DIOXIDE LEVEL 22 MEQ/L (21-32); CHLORIDE LEVEL 109 MEQ/L (98-107); CREATININE FOR GFR 1.03 MG/DL (0.55-1.30); GLOMERULAR FILTRATION RATE > 60.0 (>51); GLUCOSE, FASTING 356 MG/DL (70-100); POTASSIUM SERUM 3.9 MEQ/L (3.5-5.1); SODIUM LEVEL 138 MEQ/L (136-145); TOTAL PROTEIN 5.5 GM/DL (6.4-8.2)
[2017-10-13 07:54] LABS: BASO % 0.9 % (0.0-1.0); EOS # 0.2 10^3/uL (0.0-0.50); EOS % 3.3 % (0.0-3.0); HEMATOCRIT 31.4 % (36.0-47.0); HEMOGLOBIN 11.3 g/dl (12.0-15.5); IMMATURE GRANULOCYTE % 0.4 % (0-3.0); LYMPH # 1.4 10^3/uL (1.5-4.5); LYMPH % 30.3 % (24.0-44.0); MEAN CORPUSCULAR HEMOGLOBIN 33.8 pg (27.0-33.0); MONO # 0.3 10^3/uL (0.0-0.8); MONO % 7.4 % (0.0-5.0); NEUTROPHILS # 2.6 10^3/uL (1.8-7.7); NEUTROPHILS % 57.7 % (36.0-66.0); RED BLOOD COUNT 3.34 10^6/uL (4.00-5.40); RED CELL DISTRIBUTION WIDTH 12.4 % (11.5-14.5); WHITE BLOOD COUNT 4.6 10^3/uL (4.0-10.0)
[2017-10-13 08:10] LABS: PLATELET COUNT, AUTOMATED 81 10^3/uL (150-450)
[2017-10-13 08:13] LABS: INR 1.05; PROTHROMBIN TIME 13.8 SECONDS (12.4-14.5)
[2017-10-13 08:19] LABS: ALBUMIN 2.5 GM/DL (3.2-5.2); ALBUMIN/GLOBULIN RATIO 0.78 (1.00-1.93); ALKALINE PHOSPHATASE 105 U/L (45-117); ALT/SGPT 22 U/L (12-78); ANION GAP 7 MEQ/L (8-16); AST/SGOT 29 U/L (7-37); BILIRUBIN,TOTAL 0.8 MG/DL (0.2-1.0); BLOOD UREA NITROGEN 28 MG/DL (7-18); CALCIUM LEVEL 8.5 MG/DL (8.5-10.1); CARBON DIOXIDE LEVEL 22 MEQ/L (21-32); CHLORIDE LEVEL 108 MEQ/L (98-107); CREATININE FOR GFR 1.01 MG/DL (0.55-1.30); GLOMERULAR FILTRATION RATE > 60.0 (>51); GLUCOSE, FASTING 357 MG/DL (70-100); POTASSIUM SERUM 4.1 MEQ/L (3.5-5.1); SODIUM LEVEL 137 MEQ/L (136-145); TOTAL PROTEIN 5.7 GM/DL (6.4-8.2)
[2017-10-13] MEDS: LEVEMIR (INSULIN DETEMIR) 1 UNITS/0.01ML SC ×2 (08:23→20:33)
[2017-10-13] MEDS: CARVedilol 12.5 MG TAB PO ×2 (08:24→20:34)
[2017-10-13] MEDS: PANTOPRAZOLE 40MG TAB (PROTONIX) PO (08:24)
[2017-10-13] MEDS: rifAXIMin 550 MG TAB (XIFAXAN) PO ×2 (08:24→20:35)
[2017-10-13] MEDS: ASPIRIN 81 MG ENTERIC TAB PO (08:24)
[2017-10-13] MEDS: GABAPENTIN 300 MG CAP PO ×3 (08:24→20:34)
[2017-10-13] MEDS: OMEPRAZOLE 20 MG CAP PO (08:25)
[2017-10-13] MEDS: LACTULOSE 20 GM/30 ML SYRUP UD PO ×3 (08:25→20:33)
[2017-10-13] MEDS: IPRATROPIUM 0.5MG/ALBUTEROL 2.5MG INH SOL UD 3ML (DUONEB)(J7620) INH ×2 (08:31→16:52)
[2017-10-13] MEDS: ENOXAPARIN 30 MG/0.3 ML SYR (J1650) SC (08:49)
[2017-10-13] MEDS: rOPINIRole 1MG TAB PO ×2 (08:49→20:34)
[2017-10-13] MEDS: HumaLOG INSULIN (NovoLOG) PER UNIT SC ×4 (08:50→20:33)
[2017-10-13] MEDS ORDERED: ISOVUE-370 76% 100ML VIAL (Q9967) As Ordered (14:17)
[2017-10-13 16:36] LABS: BEDSIDE GLUCOSE 319 MG/DL (70-105)
[2017-10-13] MEDS: BENZONATATE 100 MG CAP PO ×2 (16:46→20:34)
[2017-10-13 16:57] LABS: BEDSIDE GLUCOSE 445 MG/DL (70-105)
[2017-10-13 20:31] LABS: BEDSIDE GLUCOSE 451 MG/DL (70-105)
[2017-10-13] MEDS: CETIRIZINE (ZyrTEC) 10 MG TAB PO (20:35)
[2017-10-13] MEDS: guaiFENesin ER 600 MG TAB PO (20:35)
[2017-10-13] MEDS: TOPIRAMATE (TopAMAX) 25 MG TAB PO (20:35)
[2017-10-13] MEDS: MAGNESIUM OXIDE 400 MG TAB (MAG-OX) PO (20:35)
[2017-10-13] MEDS: NYSTATIN 100,000 UNITS/GM TOPICAL PWD 15 GM TOP (20:36)
[2017-10-14 05:08] LABS: HEMATOCRIT 31.9 % (36.0-47.0); HEMOGLOBIN 11.2 g/dl (12.0-15.5); MEAN CORPUSCULAR HEMOGLOBIN 33.1 pg (27.0-33.0); MEAN CORPUSCULAR HGB CONC 35.1 g/dl (32.0-36.5); MEAN CORPUSCULAR VOLUME 94.4 fl (80.0-96.0); RED BLOOD COUNT 3.38 10^6/uL (4.00-5.40); RED CELL DISTRIBUTION WIDTH 12.1 % (11.5-14.5)
[2017-10-14 05:16] LABS: PLATELET COUNT, AUTOMATED 77 10^3/uL (150-450)
[2017-10-14 05:27] LABS: ALBUMIN 2.5 GM/DL (3.2-5.2); ALBUMIN/GLOBULIN RATIO 0.69 (1.00-1.93); ALKALINE PHOSPHATASE 102 U/L (45-117); ALT/SGPT 24 U/L (12-78); ANION GAP 6 MEQ/L (8-16); AST/SGOT 31 U/L (7-37); BILIRUBIN,TOTAL 0.8 MG/DL (0.2-1.0); BLOOD UREA NITROGEN 20 MG/DL (7-18); CALCIUM LEVEL 8.4 MG/DL (8.5-10.1); CARBON DIOXIDE LEVEL 23 MEQ/L (21-32); CHLORIDE LEVEL 109 MEQ/L (98-107); CREATININE FOR GFR 1.06 MG/DL (0.55-1.30); GLOMERULAR FILTRATION RATE 58.4 (>51); GLUCOSE, FASTING 349 MG/DL (70-100); MAGNESIUM LEVEL 1.9 MG/DL (1.8-2.4); POTASSIUM SERUM 4.2 MEQ/L (3.5-5.1); SODIUM LEVEL 138 MEQ/L (136-145); TOTAL PROTEIN 6.1 GM/DL (6.4-8.2)
[2017-10-14] MEDS: SLF 3 ML SYR IV ×3 (06:11→21:33)
[2017-10-14] MEDS: ACETAMINOPHEN 500 MG TAB PO ×2 (06:13→23:57)
[2017-10-14 07:54] LABS: BEDSIDE GLUCOSE 312 MG/DL (70-105)
[2017-10-14] MEDS: HumaLOG INSULIN (NovoLOG) PER UNIT SC ×4 (08:28→21:33)
[2017-10-14] MEDS: GABAPENTIN 300 MG CAP PO ×3 (08:34→20:18)
[2017-10-14] MEDS: LACTULOSE 20 GM/30 ML SYRUP UD PO ×3 (08:34→20:16)
[2017-10-14] MEDS: OMEPRAZOLE 20 MG CAP PO (08:34)
[2017-10-14] MEDS: ASPIRIN 81 MG ENTERIC TAB PO (08:34)
[2017-10-14] MEDS: rifAXIMin 550 MG TAB (XIFAXAN) PO ×2 (08:37→20:17)
[2017-10-14] MEDS: PANTOPRAZOLE 40MG TAB (PROTONIX) PO (08:37)
[2017-10-14] MEDS: guaiFENesin ER 600 MG TAB PO ×2 (08:37→20:17)
[2017-10-14] MEDS: cefTRIAXone SOD 2 GM in D5W MINI-BAG PLUS 50 ML IV (09:05)
[2017-10-14] MEDS: ENOXAPARIN 30 MG/0.3 ML SYR (J1650) SC (09:05)
[2017-10-14 09:33] LABS: HEPATITIS B SURFACE ANTIGEN NEGATIVE (NEGATIVE)
[2017-10-14 09:44] LABS: HEPATITIS C VIRUS ABY INDEX 0.1 INDEX (<0.8)
[2017-10-14 09:45] LABS: HEPATITIS B CORE ANTIBODY IGM NEGATIVE (NEGATIVE)
[2017-10-14 09:46] LABS: HEPATITIS A ANTIBODY IGM NEGATIVE (NEGATIVE)
[2017-10-14] MEDS: AZITHROMYCIN INJ 500 MG, VIAL MATE ADAPTER 1 EACH in D5W 250 ML IV (09:56)
[2017-10-14] MEDS: rOPINIRole 1MG TAB PO ×2 (09:57→20:23)
[2017-10-14] MEDS: CARVedilol 12.5 MG TAB PO ×2 (09:57→20:17)
[2017-10-14] MEDS: BENZONATATE 100 MG CAP PO ×3 (09:57→20:18)
[2017-10-14] MEDS: LEVEMIR (INSULIN DETEMIR) 1 UNITS/0.01ML SC ×2 (09:58→21:32)
[2017-10-14 11:53] LABS: BEDSIDE GLUCOSE 421 MG/DL (70-105)
[2017-10-14 13:06] LABS: C REACTIVE PROTEIN QUANTITATIV 7.29 MG/DL (0.00-0.30)
[2017-10-14 17:04] LABS: BEDSIDE GLUCOSE 401 MG/DL (70-105)
[2017-10-14] MEDS: CETIRIZINE (ZyrTEC) 10 MG TAB PO (20:17)
[2017-10-14] MEDS: TOPIRAMATE (TopAMAX) 25 MG TAB PO (20:18)
[2017-10-14] MEDS: MAGNESIUM OXIDE 400 MG TAB (MAG-OX) PO (20:18)
[2017-10-14 21:13] LABS: BEDSIDE GLUCOSE 442 MG/DL (70-105)
[2017-10-15] MEDS ORDERED: LIDOCAINE 5% (LIDODERM) PATCH TD (01:15)
[2017-10-15] MEDS: LIDOCAINE 5% (LIDODERM) PATCH TD (01:49)
[2017-10-15] MEDS: SLF 3 ML SYR IV ×3 (05:13→20:30)
[2017-10-15 05:35] LABS: HEMATOCRIT 33.7 % (36.0-47.0); HEMOGLOBIN 11.8 g/dl (12.0-15.5); MEAN CORPUSCULAR HEMOGLOBIN 33.2 pg (27.0-33.0); MEAN CORPUSCULAR VOLUME 94.9 fl (80.0-96.0); PLATELET COUNT, AUTOMATED 103 10^3/uL (150-450); RED BLOOD COUNT 3.55 10^6/uL (4.00-5.40); RED CELL DISTRIBUTION WIDTH 12.1 % (11.5-14.5); WHITE BLOOD COUNT 3.3 10^3/uL (4.0-10.0)
[2017-10-15 05:52] LABS: ALBUMIN 2.6 GM/DL (3.2-5.2); ALBUMIN/GLOBULIN RATIO 0.67 (1.00-1.93); ALKALINE PHOSPHATASE 109 U/L (45-117); ALT/SGPT 24 U/L (12-78); ANION GAP 5 MEQ/L (8-16); AST/SGOT 28 U/L (7-37); BILIRUBIN,TOTAL 0.6 MG/DL (0.2-1.0); BLOOD UREA NITROGEN 18 MG/DL (7-18); C REACTIVE PROTEIN QUANTITATIV 6.27 MG/DL (0.00-0.30); CALCIUM LEVEL 8.4 MG/DL (8.5-10.1); CARBON DIOXIDE LEVEL 20 MEQ/L (21-32); CHLORIDE LEVEL 111 MEQ/L (98-107); CREATININE FOR GFR 0.98 MG/DL (0.55-1.30); GLOMERULAR FILTRATION RATE > 60.0 (>51); GLUCOSE, FASTING 375 MG/DL (70-100); MAGNESIUM LEVEL 1.9 MG/DL (1.8-2.4); POTASSIUM SERUM 3.9 MEQ/L (3.5-5.1); SODIUM LEVEL 136 MEQ/L (136-145); TOTAL PROTEIN 6.5 GM/DL (6.4-8.2)
[2017-10-15] MEDS: IPRATROPIUM 0.5MG/ALBUTEROL 2.5MG INH SOL UD 3ML (DUONEB)(J7620) INH (07:43)
[2017-10-15] MEDS: OMEPRAZOLE 20 MG CAP PO (08:00)
[2017-10-15] MEDS: CARVedilol 12.5 MG TAB PO ×2 (08:00→20:22)
[2017-10-15] MEDS: rOPINIRole 1MG TAB PO ×2 (08:00→20:23)
[2017-10-15] MEDS: BENZONATATE 100 MG CAP PO ×3 (08:01→20:21)
[2017-10-15] MEDS: PANTOPRAZOLE 40MG TAB (PROTONIX) PO (08:01)
[2017-10-15] MEDS: GABAPENTIN 300 MG CAP PO ×3 (08:01→20:21)
[2017-10-15] MEDS: ASPIRIN 81 MG ENTERIC TAB PO (08:01)
[2017-10-15] MEDS: guaiFENesin ER 600 MG TAB PO ×2 (08:01→20:21)
[2017-10-15] MEDS: rifAXIMin 550 MG TAB (XIFAXAN) PO ×2 (08:01→20:21)
[2017-10-15] MEDS: ENOXAPARIN 30 MG/0.3 ML SYR (J1650) SC (08:02)
[2017-10-15] MEDS: LACTULOSE 20 GM/30 ML SYRUP UD PO ×3 (08:02→20:20)
[2017-10-15] MEDS: HumaLOG INSULIN (NovoLOG) PER UNIT SC ×4 (08:03→20:24)
[2017-10-15] MEDS: cefTRIAXone SOD 2 GM in D5W MINI-BAG PLUS 50 ML IV (08:04)
[2017-10-15] MEDS: LEVEMIR (INSULIN DETEMIR) 1 UNITS/0.01ML SC ×2 (08:06→20:25)
[2017-10-15] MEDS: AZITHROMYCIN INJ 500 MG, VIAL MATE ADAPTER 1 EACH in D5W 250 ML IV (09:30)
[2017-10-15 11:31] LABS: BEDSIDE GLUCOSE 376 MG/DL (70-105)
[2017-10-15] MEDS: NORCO, ANEXSIA 5/325MG TABLET (HYDROcodone/ACETAMINOPHEN) PO (16:26)
[2017-10-15 16:53] LABS: BEDSIDE GLUCOSE 369 MG/DL (70-105)
[2017-10-15 20:05] LABS: BEDSIDE GLUCOSE 417 MG/DL (70-105)
[2017-10-15] MEDS: CETIRIZINE (ZyrTEC) 10 MG TAB PO (20:21)
[2017-10-15] MEDS: TOPIRAMATE (TopAMAX) 25 MG TAB PO (20:21)
[2017-10-15] MEDS: MAGNESIUM OXIDE 400 MG TAB (MAG-OX) PO (20:22)
[2017-10-15] MEDS ORDERED: **NOTE PATIENT COMMENT** MISC XX (21:00)
[2017-10-16] MEDS: NORCO, ANEXSIA 5/325MG TABLET (HYDROcodone/ACETAMINOPHEN) PO ×3 (00:11→23:14)
[2017-10-16] MEDS: IPRATROPIUM 0.5MG/ALBUTEROL 2.5MG INH SOL UD 3ML (DUONEB)(J7620) INH (04:42)
[2017-10-16 06:08] LABS: HEMATOCRIT 31.6 % (36.0-47.0); HEMOGLOBIN 11.2 g/dl (12.0-15.5); MEAN CORPUSCULAR HEMOGLOBIN 32.7 pg (27.0-33.0); MEAN CORPUSCULAR HGB CONC 35.4 g/dl (32.0-36.5); MEAN CORPUSCULAR VOLUME 92.4 fl (80.0-96.0); PLATELET COUNT, AUTOMATED 122 10^3/uL (150-450); RED BLOOD COUNT 3.42 10^6/uL (4.00-5.40); RED CELL DISTRIBUTION WIDTH 12.5 % (11.5-14.5); WHITE BLOOD COUNT 3.1 10^3/uL (4.0-10.0)
[2017-10-16] MEDS: SLF 3 ML SYR IV ×3 (06:12→21:13)
[2017-10-16 06:56] LABS: ALBUMIN 2.5 GM/DL (3.2-5.2); ALBUMIN/GLOBULIN RATIO 0.64 (1.00-1.93); ALKALINE PHOSPHATASE 102 U/L (45-117); ALT/SGPT 23 U/L (12-78); ANION GAP 7 MEQ/L (8-16); AST/SGOT 25 U/L (7-37); BILIRUBIN,TOTAL 0.4 MG/DL (0.2-1.0); BLOOD UREA NITROGEN 17 MG/DL (7-18); CALCIUM LEVEL 8.1 MG/DL (8.5-10.1); CARBON DIOXIDE LEVEL 20 MEQ/L (21-32); CHLORIDE LEVEL 112 MEQ/L (98-107); CREATININE FOR GFR 0.81 MG/DL (0.55-1.30); GLOMERULAR FILTRATION RATE > 60.0 (>51); GLUCOSE, FASTING 275 MG/DL (70-100); MAGNESIUM LEVEL 1.9 MG/DL (1.8-2.4); POTASSIUM SERUM 3.8 MEQ/L (3.5-5.1); SODIUM LEVEL 139 MEQ/L (136-145); TOTAL PROTEIN 6.4 GM/DL (6.4-8.2)
[2017-10-16] MEDS: HumaLOG INSULIN (NovoLOG) PER UNIT SC ×4 (07:52→21:13)
[2017-10-16] MEDS: LACTULOSE 20 GM/30 ML SYRUP UD PO ×4 (08:15→21:10)
[2017-10-16] MEDS: LEVEMIR (INSULIN DETEMIR) 1 UNITS/0.01ML SC ×2 (08:16→21:12)
[2017-10-16] MEDS: rOPINIRole 1MG TAB PO ×2 (08:17→21:12)
[2017-10-16] MEDS: guaiFENesin ER 600 MG TAB PO ×2 (08:17→21:11)
[2017-10-16] MEDS: OMEPRAZOLE 20 MG CAP PO (08:17)
[2017-10-16] MEDS: PANTOPRAZOLE 40MG TAB (PROTONIX) PO (08:17)
[2017-10-16] MEDS: ENOXAPARIN 30 MG/0.3 ML SYR (J1650) SC (08:17)
[2017-10-16] MEDS: rifAXIMin 550 MG TAB (XIFAXAN) PO ×2 (08:17→21:10)
[2017-10-16] MEDS: GABAPENTIN 300 MG CAP PO ×3 (08:17→21:11)
[2017-10-16] MEDS: CARVedilol 12.5 MG TAB PO ×2 (08:18→21:11)
[2017-10-16] MEDS: cefTRIAXone SOD 2 GM in D5W MINI-BAG PLUS 50 ML IV (08:18)
[2017-10-16] MEDS: BENZONATATE 100 MG CAP PO ×3 (08:18→21:12)
[2017-10-16] MEDS: ASPIRIN 81 MG ENTERIC TAB PO (08:18)
[2017-10-16] MEDS: AZITHROMYCIN INJ 500 MG, VIAL MATE ADAPTER 1 EACH in D5W 250 ML IV (09:29)
[2017-10-16 12:09] LABS: BEDSIDE GLUCOSE 249 MG/DL (70-105)
[2017-10-16] MEDS: ACETAMINOPHEN 500 MG TAB PO (16:31)
[2017-10-16 17:17] LABS: BEDSIDE GLUCOSE 311 MG/DL (70-105)
[2017-10-16 20:57] LABS: BEDSIDE GLUCOSE 291 MG/DL (70-105)
[2017-10-16] MEDS: TOPIRAMATE (TopAMAX) 25 MG TAB PO (21:10)
[2017-10-16] MEDS: CETIRIZINE (ZyrTEC) 10 MG TAB PO (21:10)
[2017-10-16] MEDS: MAGNESIUM OXIDE 400 MG TAB (MAG-OX) PO (21:12)
[2017-10-17] MEDS: NYSTATIN 100,000 UNITS/GM TOPICAL PWD 15 GM TOP (04:12)
[2017-10-17] MEDS: DICYCLOMINE 10 MG CAP PO (04:12)
[2017-10-17] MEDS: SLF 3 ML SYR IV ×3 (05:55→22:24)
[2017-10-17 06:25] LABS: HEMATOCRIT 32.9 % (36.0-47.0); HEMOGLOBIN 11.7 g/dl (12.0-15.5); MEAN CORPUSCULAR HEMOGLOBIN 32.9 pg (27.0-33.0); MEAN CORPUSCULAR HGB CONC 35.6 g/dl (32.0-36.5); MEAN CORPUSCULAR VOLUME 92.4 fl (80.0-96.0); PLATELET COUNT, AUTOMATED 121 10^3/uL (150-450); RED BLOOD COUNT 3.56 10^6/uL (4.00-5.40); RED CELL DISTRIBUTION WIDTH 12.4 % (11.5-14.5); WHITE BLOOD COUNT 3.1 10^3/uL (4.0-10.0)
[2017-10-17 06:42] LABS: ALBUMIN 2.6 GM/DL (3.2-5.2); ALKALINE PHOSPHATASE 102 U/L (45-117); ALT/SGPT 24 U/L (12-78); ANION GAP 6 MEQ/L (8-16); AST/SGOT 31 U/L (7-37); BILIRUBIN,TOTAL 0.4 MG/DL (0.2-1.0); BLOOD UREA NITROGEN 17 MG/DL (7-18); C REACTIVE PROTEIN QUANTITATIV 2.03 MG/DL (0.00-0.30); CALCIUM LEVEL 8.6 MG/DL (8.5-10.1); CARBON DIOXIDE LEVEL 23 MEQ/L (21-32); CHLORIDE LEVEL 110 MEQ/L (98-107); CREATININE FOR GFR 0.79 MG/DL (0.55-1.30); GLOMERULAR FILTRATION RATE > 60.0 (>51); GLUCOSE, FASTING 223 MG/DL (70-100); MAGNESIUM LEVEL 1.9 MG/DL (1.8-2.4); POTASSIUM SERUM 3.8 MEQ/L (3.5-5.1); SODIUM LEVEL 139 MEQ/L (136-145); TOTAL PROTEIN 6.3 GM/DL (6.4-8.2)
[2017-10-17] MEDS: AZITHROMYCIN INJ 500 MG, VIAL MATE ADAPTER 1 EACH in D5W 250 ML IV (08:05)
[2017-10-17] MEDS: LACTULOSE 20 GM/30 ML SYRUP UD PO ×2 (08:05→17:32)
[2017-10-17] MEDS: ASPIRIN 81 MG ENTERIC TAB PO (08:06)
[2017-10-17] MEDS: GABAPENTIN 300 MG CAP PO ×3 (08:06→22:23)
[2017-10-17] MEDS: rifAXIMin 550 MG TAB (XIFAXAN) PO ×2 (08:06→22:21)
[2017-10-17] MEDS: guaiFENesin ER 600 MG TAB PO ×2 (08:06→22:21)
[2017-10-17] MEDS: OMEPRAZOLE 20 MG CAP PO (08:06)
[2017-10-17] MEDS: PANTOPRAZOLE 40MG TAB (PROTONIX) PO (08:06)
[2017-10-17] MEDS: HumaLOG INSULIN (NovoLOG) PER UNIT SC ×4 (08:06→22:20)
[2017-10-17] MEDS: BENZONATATE 100 MG CAP PO ×3 (08:07→22:22)
[2017-10-17] MEDS: CARVedilol 12.5 MG TAB PO ×2 (08:07→22:23)
[2017-10-17] MEDS: cefTRIAXone SOD 2 GM in D5W MINI-BAG PLUS 50 ML IV (08:08)
[2017-10-17] MEDS: LEVEMIR (INSULIN DETEMIR) 1 UNITS/0.01ML SC ×2 (08:08→22:21)
[2017-10-17] MEDS: ENOXAPARIN 30 MG/0.3 ML SYR (J1650) SC (08:08)
[2017-10-17] MEDS: rOPINIRole 1MG TAB PO ×2 (08:10→22:21)
[2017-10-17 12:17] LABS: BEDSIDE GLUCOSE 309 MG/DL (70-105)
[2017-10-17] MEDS: NORCO, ANEXSIA 5/325MG TABLET (HYDROcodone/ACETAMINOPHEN) PO ×2 (12:17→22:29)
[2017-10-17 20:56] LABS: BEDSIDE GLUCOSE 256 MG/DL (70-105)
[2017-10-17] MEDS: CETIRIZINE (ZyrTEC) 10 MG TAB PO (22:21)
[2017-10-17] MEDS: MAGNESIUM OXIDE 400 MG TAB (MAG-OX) PO (22:22)
[2017-10-17] MEDS: TOPIRAMATE (TopAMAX) 25 MG TAB PO (22:23)
[2017-10-18] MEDS: NORCO, ANEXSIA 5/325MG TABLET (HYDROcodone/ACETAMINOPHEN) PO ×3 (04:57→21:58)
[2017-10-18] MEDS: SLF 3 ML SYR IV ×3 (06:00→22:00)
[2017-10-18 06:20] LABS: HEMATOCRIT 32.5 % (36.0-47.0); HEMOGLOBIN 11.6 g/dl (12.0-15.5); MEAN CORPUSCULAR HGB CONC 35.7 g/dl (32.0-36.5); MEAN CORPUSCULAR VOLUME 92.6 fl (80.0-96.0); PLATELET COUNT, AUTOMATED 138 10^3/uL (150-450); RED BLOOD COUNT 3.51 10^6/uL (4.00-5.40); RED CELL DISTRIBUTION WIDTH 12.7 % (11.5-14.5)
[2017-10-18 06:36] LABS: AMMONIA 71 uMOL/L (<32)
[2017-10-18 06:42] LABS: ALBUMIN 2.5 GM/DL (3.2-5.2); ALBUMIN/GLOBULIN RATIO 0.68 (1.00-1.93); ALKALINE PHOSPHATASE 104 U/L (45-117); ALT/SGPT 25 U/L (12-78); ANION GAP 7 MEQ/L (8-16); AST/SGOT 29 U/L (7-37); BILIRUBIN,TOTAL 0.4 MG/DL (0.2-1.0); BLOOD UREA NITROGEN 16 MG/DL (7-18); CALCIUM LEVEL 8.4 MG/DL (8.5-10.1); CARBON DIOXIDE LEVEL 21 MEQ/L (21-32); CHLORIDE LEVEL 111 MEQ/L (98-107); CREATININE FOR GFR 0.78 MG/DL (0.55-1.30); GLOMERULAR FILTRATION RATE > 60.0 (>51); GLUCOSE, FASTING 234 MG/DL (70-100); MAGNESIUM LEVEL 1.8 MG/DL (1.8-2.4); POTASSIUM SERUM 3.9 MEQ/L (3.5-5.1); SODIUM LEVEL 139 MEQ/L (136-145); TOTAL PROTEIN 6.2 GM/DL (6.4-8.2)
[2017-10-18] MEDS: rOPINIRole 1MG TAB PO ×2 (08:11→21:58)
[2017-10-18] MEDS: LACTULOSE 20 GM/30 ML SYRUP UD PO ×2 (08:12→21:56)
[2017-10-18] MEDS: LEVEMIR (INSULIN DETEMIR) 1 UNITS/0.01ML SC ×2 (08:12→22:00)
[2017-10-18] MEDS: HumaLOG INSULIN (NovoLOG) PER UNIT SC ×4 (08:12→21:59)
[2017-10-18] MEDS: guaiFENesin ER 600 MG TAB PO ×2 (08:13→21:57)
[2017-10-18] MEDS: PANTOPRAZOLE 40MG TAB (PROTONIX) PO (08:13)
[2017-10-18] MEDS: AZITHROMYCIN 250 MG TAB PO (08:13)
[2017-10-18] MEDS: CARVedilol 12.5 MG TAB PO ×2 (08:13→21:59)
[2017-10-18] MEDS: OMEPRAZOLE 20 MG CAP PO (08:13)
[2017-10-18] MEDS: ASPIRIN 81 MG ENTERIC TAB PO (08:13)
[2017-10-18] MEDS: ENOXAPARIN 30 MG/0.3 ML SYR (J1650) SC (08:14)
[2017-10-18] MEDS: cefTRIAXone SOD 2 GM in D5W MINI-BAG PLUS 50 ML IV (08:14)
[2017-10-18] MEDS: BENZONATATE 100 MG CAP PO ×3 (08:14→21:57)
[2017-10-18] MEDS: rifAXIMin 550 MG TAB (XIFAXAN) PO ×2 (08:14→21:58)
[2017-10-18] MEDS: GABAPENTIN 300 MG CAP PO ×3 (08:16→21:57)
[2017-10-18] MEDS: DICYCLOMINE 10 MG CAP PO ×2 (09:27→15:54)
[2017-10-18 12:04] LABS: BEDSIDE GLUCOSE 224 MG/DL (70-105)
[2017-10-18 17:13] LABS: BEDSIDE GLUCOSE 230 MG/DL (70-105)
[2017-10-18 20:32] LABS: BEDSIDE GLUCOSE 281 MG/DL (70-105)
[2017-10-18] MEDS ORDERED: TRINTELLIX PO (21:00)
[2017-10-18] MEDS: MAGNESIUM OXIDE 400 MG TAB (MAG-OX) PO (21:56)
[2017-10-18] MEDS: TOPIRAMATE (TopAMAX) 25 MG TAB PO (21:58)
[2017-10-18] MEDS: CETIRIZINE (ZyrTEC) 10 MG TAB PO (21:58)
[2017-10-19] MEDS: SLF 3 ML SYR IV (05:54)
[2017-10-19 06:02] LABS: HEMATOCRIT 30.8 % (36.0-47.0); HEMOGLOBIN 10.9 g/dl (12.0-15.5); MEAN CORPUSCULAR HEMOGLOBIN 33.7 pg (27.0-33.0); MEAN CORPUSCULAR HGB CONC 35.4 g/dl (32.0-36.5); MEAN CORPUSCULAR VOLUME 95.4 fl (80.0-96.0); PLATELET COUNT, AUTOMATED 126 10^3/uL (150-450); RED BLOOD COUNT 3.23 10^6/uL (4.00-5.40); RED CELL DISTRIBUTION WIDTH 12.8 % (11.5-14.5); WHITE BLOOD COUNT 5.2 10^3/uL (4.0-10.0)
[2017-10-19 06:21] LABS: ALBUMIN 2.4 GM/DL (3.2-5.2); ALBUMIN/GLOBULIN RATIO 0.71 (1.00-1.93); ALKALINE PHOSPHATASE 99 U/L (45-117); ALT/SGPT 23 U/L (12-78); ANION GAP 6 MEQ/L (8-16); AST/SGOT 27 U/L (7-37); BILIRUBIN,TOTAL 0.5 MG/DL (0.2-1.0); BLOOD UREA NITROGEN 15 MG/DL (7-18); C REACTIVE PROTEIN QUANTITATIV 3.34 MG/DL (0.00-0.30); CALCIUM LEVEL 8.2 MG/DL (8.5-10.1); CARBON DIOXIDE LEVEL 22 MEQ/L (21-32); CHLORIDE LEVEL 113 MEQ/L (98-107); GLOMERULAR FILTRATION RATE > 60.0 (>51); GLUCOSE, FASTING 251 MG/DL (70-100); MAGNESIUM LEVEL 1.7 MG/DL (1.8-2.4); POTASSIUM SERUM 3.8 MEQ/L (3.5-5.1); SODIUM LEVEL 141 MEQ/L (136-145); TOTAL PROTEIN 5.8 GM/DL (6.4-8.2)
[2017-10-19] MEDS: HumaLOG INSULIN (NovoLOG) PER UNIT SC (09:59)
[2017-10-19] MEDS: LACTULOSE 20 GM/30 ML SYRUP UD PO (09:59)
[2017-10-19] MEDS: cefTRIAXone SOD 2 GM in D5W MINI-BAG PLUS 50 ML IV (09:59)
[2017-10-19] MEDS: GABAPENTIN 300 MG CAP PO (10:00)
[2017-10-19] MEDS: OMEPRAZOLE 20 MG CAP PO (10:00)
[2017-10-19] MEDS: ASPIRIN 81 MG ENTERIC TAB PO (10:00)
[2017-10-19] MEDS: guaiFENesin ER 600 MG TAB PO (10:00)
[2017-10-19] MEDS: CARVedilol 12.5 MG TAB PO (10:00)
[2017-10-19] MEDS: BENZONATATE 100 MG CAP PO (10:01)
[2017-10-19] MEDS: PANTOPRAZOLE 40MG TAB (PROTONIX) PO (10:01)
[2017-10-19] MEDS: AZITHROMYCIN 250 MG TAB PO (10:01)
[2017-10-19] MEDS: rOPINIRole 1MG TAB PO (10:01)
[2017-10-19] MEDS: rifAXIMin 550 MG TAB (XIFAXAN) PO (10:01)
[2017-10-19] MEDS: LEVEMIR (INSULIN DETEMIR) 1 UNITS/0.01ML SC (10:02)
[2017-10-19] MEDS: ENOXAPARIN 30 MG/0.3 ML SYR (J1650) SC (10:02)
[2017-10-19] MEDS: DICYCLOMINE 10 MG CAP PO (10:02)
[2017-10-19] MEDS: NORCO, ANEXSIA 5/325MG TABLET (HYDROcodone/ACETAMINOPHEN) PO (10:04)
[2017-10-19] MEDS ORDERED: VITAMIN D 50,000 UNITS CAPSULE (ERGOCALCIFEROL 1.25MG) PO (10:16)
[2017-10-19] MEDS: VITAMIN D 50,000 UNITS CAPSULE (ERGOCALCIFEROL 1.25MG) PO (10:59)
[2017-10-21 09:07] LABS: BEDSIDE GLUCOSE 217 MG/DL (70-105)
== END 2017-10-19 12:13 | disposition home health service (06) | DRG 279 ==
LOC: M MSPAV 10-16 08:40 → M ED 00:25 → M ED INP 02:52 → M PCU 15:22
DX: K72.00 Acute and subacute hepatic failure without coma (principal); J18.9 Pneumonia, unspecified organism; E11.40 Type 2 diabetes mellitus with diabetic neuropathy, unspecified; E11.65 Type 2 diabetes mellitus with hyperglycemia; E66.01 Morbid (severe) obesity due to excess calories; Z68.42 Body mass index [BMI] 45.0-49.9, adult; K75.81 Nonalcoholic steatohepatitis (NASH); K74.60 Unspecified cirrhosis of liver; I10 Essential (primary) hypertension; F32.9 Major depressive disorder, single episode, unspecified; Z90.49 Acquired absence of other specified parts of digestive tract; Z88.8 Allergy status to other drugs, medicaments and biological substances; Z91.19 Patient's noncompliance with other medical treatment and regimen; Z79.82 Long term (current) use of aspirin; Z79.4 Long term (current) use of insulin; Z79.899 Other long term (current) drug therapy

== ENCOUNTER 2017-10-23 13:55 | Emergency (ER) | payer OTHER ==
[2017-10-23 15:45] LABS: BASO % 1.1 % (0.0-1.0); EOS # 0.1 10^3/uL (0.0-0.50); EOS % 3.1 % (0.0-3.0); HEMATOCRIT 32.9 % (36.0-47.0); HEMOGLOBIN 11.2 g/dl (12.0-15.5); IMMATURE GRANULOCYTE % 0.6 % (0-3.0); LYMPH # 1.2 10^3/uL (1.5-4.5); LYMPH % 32.3 % (24.0-44.0); MEAN CORPUSCULAR VOLUME 97.1 fl (80.0-96.0); MONO # 0.2 10^3/uL (0.0-0.8); MONO % 6.2 % (0.0-5.0); NEUTROPHILS % 56.7 % (36.0-66.0); PLATELET COUNT, AUTOMATED 159 10^3/uL (150-450); RED BLOOD COUNT 3.39 10^6/uL (4.00-5.40); RED CELL DISTRIBUTION WIDTH 13.1 % (11.5-14.5); WHITE BLOOD COUNT 3.6 10^3/uL (4.0-10.0)
[2017-10-23 16:01] LABS: AMMONIA 63 uMOL/L (<32)
[2017-10-23 16:05] LABS: ALBUMIN 2.6 GM/DL (3.2-5.2); ALBUMIN/GLOBULIN RATIO 0.76 (1.00-1.93); ALKALINE PHOSPHATASE 106 U/L (45-117); ALT/SGPT 23 U/L (12-78); ANION GAP 6 MEQ/L (8-16); AST/SGOT 28 U/L (7-37); BILIRUBIN,DIRECT 0.1 MG/DL (0.0-0.2); BILIRUBIN,TOTAL 0.4 MG/DL (0.2-1.0); BLOOD UREA NITROGEN 15 MG/DL (7-18); CALCIUM LEVEL 8.4 MG/DL (8.5-10.1); CARBON DIOXIDE LEVEL 25 MEQ/L (21-32); CHLORIDE LEVEL 115 MEQ/L (98-107); CPK CREATINE PHOSPHOKINASE 107 U/L (26-192); CREATININE FOR GFR 0.76 MG/DL (0.55-1.30); GLOMERULAR FILTRATION RATE > 60.0 (>51); GLUCOSE, FASTING 187 MG/DL (70-100); POTASSIUM SERUM 4.2 MEQ/L (3.5-5.1); SODIUM LEVEL 146 MEQ/L (136-145); TROPONIN I < 0.02 NG/ML (< 0.10)
[2017-10-23 16:05] LABS: LACTIC ACID SEPSIS PROTOCOL 1.2 MMOL/L (0.4-2.0)
[2017-10-23 16:07] LABS: CK-MB VALUE MASS 1.7 NG/ML (<3.6); MB/CK RELATIVE INDEX 1.58 (< OR =4); NT-PRO BNP 295 PG/ML (<125)
[2017-10-23] MEDS: TORSEMIDE 20 MG TAB PO (16:28)
== END 2017-10-23 16:34 | disposition home or self-care (01) ==
LOC: M ED 13:55
DX: E87.70 Fluid overload, unspecified (principal); I50.9 Heart failure, unspecified; E11.9 Type 2 diabetes mellitus without complications; I11.0 Hypertensive heart disease with heart failure; K74.60 Unspecified cirrhosis of liver; F17.210 Nicotine dependence, cigarettes, uncomplicated; Z98.890 Other specified postprocedural states; Z88.8 Allergy status to other drugs, medicaments and biological substances; Z79.899 Other long term (current) drug therapy; Z79.4 Long term (current) use of insulin
CPT/HCPCS: 71046

== ENCOUNTER 2017-10-27 22:33 | Emergency (ER) | payer OTHER ==
[2017-10-28 00:46] LABS: BASO # 0.1 10^3/uL (0.0-0.2); BASO % 1.8 % (0.0-1.0); EOS # 0.2 10^3/uL (0.0-0.50); EOS % 5.5 % (0.0-3.0); HEMATOCRIT 32.1 % (36.0-47.0); HEMOGLOBIN 11.2 g/dl (12.0-15.5); IMMATURE GRANULOCYTE % 0.6 % (0-3.0); LYMPH # 1.5 10^3/uL (1.5-4.5); LYMPH % 45.4 % (24.0-44.0); MEAN CORPUSCULAR HGB CONC 34.9 g/dl (32.0-36.5); MEAN CORPUSCULAR VOLUME 94.7 fl (80.0-96.0); MONO # 0.3 10^3/uL (0.0-0.8); MONO % 8.2 % (0.0-5.0); NEUTROPHILS # 1.3 10^3/uL (1.8-7.7); NEUTROPHILS % 38.5 % (36.0-66.0); PLATELET COUNT, AUTOMATED 149 10^3/uL (150-450); RED BLOOD COUNT 3.39 10^6/uL (4.00-5.40); RED CELL DISTRIBUTION WIDTH 12.9 % (11.5-14.5); WHITE BLOOD COUNT 3.3 10^3/uL (4.0-10.0)
[2017-10-28 01:25] LABS: ANION GAP 8 MEQ/L (8-16); BLOOD UREA NITROGEN 19 MG/DL (7-18); CALCIUM LEVEL 8.3 MG/DL (8.5-10.1); CARBON DIOXIDE LEVEL 23 MEQ/L (21-32); CHLORIDE LEVEL 113 MEQ/L (98-107); CREATININE FOR GFR 0.88 MG/DL (0.55-1.30); GLOMERULAR FILTRATION RATE > 60.0 (>51); GLUCOSE, FASTING 303 MG/DL (70-100); SODIUM LEVEL 144 MEQ/L (136-145)
[2017-10-28] MEDS: AMPICILLIN SOD/SULBACTAM SOD 3 GM in D5W MINI-BAG PLUS 100 ML IV (01:38)
[2017-10-28] MEDS: MORPHINE 2 MG/ML 1ML SYRINGE (J2270) IV (01:38)
== END 2017-10-28 02:45 | disposition home or self-care (01) ==
LOC: M ED 10-28 02:45
DX: L03.116 Cellulitis of left lower limb (principal); E11.9 Type 2 diabetes mellitus without complications; J44.9 Chronic obstructive pulmonary disease, unspecified; J45.909 Unspecified asthma, uncomplicated; G47.30 Sleep apnea, unspecified; K74.60 Unspecified cirrhosis of liver; F33.9 Major depressive disorder, recurrent, unspecified; F41.9 Anxiety disorder, unspecified; F17.200 Nicotine dependence, unspecified, uncomplicated; Z86.69 Personal history of other diseases of the nervous system and sense organs; Z88.8 Allergy status to other drugs, medicaments and biological substances; Z79.82 Long term (current) use of aspirin; Z79.4 Long term (current) use of insulin; Z79.899 Other long term (current) drug therapy; Z79.51 Long term (current) use of inhaled steroids; Z87.448 Personal history of other diseases of urinary system
CPT/HCPCS: J2270

== ENCOUNTER → 2017-11-02 | Outpatient (REF) | payer OTHER ==
[2017-11-02 18:08] LABS: ANION GAP 9 MEQ/L (8-16); BLOOD UREA NITROGEN 22 MG/DL (7-18); CARBON DIOXIDE LEVEL 24 MEQ/L (21-32); CHLORIDE LEVEL 112 MEQ/L (98-107); CREATININE FOR GFR 0.81 MG/DL (0.55-1.30); GLOMERULAR FILTRATION RATE > 60.0 (>51); GLUCOSE, FASTING 191 MG/DL (70-100); POTASSIUM SERUM 5.1 MEQ/L (3.5-5.1); SODIUM LEVEL 145 MEQ/L (136-145)
== END ==
LOC: M SFHCLERA 14:32
DX: I50.812 Chronic right heart failure (principal)

== ENCOUNTER → 2017-11-10 | Outpatient (CLI) | payer OTHER | LOC: M PAIN 11:00 | DX: M51.26 Other intervertebral disc displacement, lumbar region (principal); M53.3 Sacrococcygeal disorders, not elsewhere classified; G89.29 Other chronic pain; E11.9 Type 2 diabetes mellitus without complications; I10 Essential (primary) hypertension; F32.9 Major depressive disorder, single episode, unspecified; M19.90 Unspecified osteoarthritis, unspecified site; G25.81 Restless legs syndrome; F17.200 Nicotine dependence, unspecified, uncomplicated; Z79.4 Long term (current) use of insulin; Z79.82 Long term (current) use of aspirin; Z79.899 Other long term (current) drug therapy; Z88.8 Allergy status to other drugs, medicaments and biological substances; Z86.79 Personal history of other diseases of the circulatory system | CPT/HCPCS: G0463 ==

== ENCOUNTER → 2017-11-16 | Outpatient (REF) | payer OTHER ==
[2017-11-16 14:24] LABS: ANION GAP 5 MEQ/L (8-16); BLOOD UREA NITROGEN 28 MG/DL (7-18); CALCIUM LEVEL 9.1 MG/DL (8.5-10.1); CARBON DIOXIDE LEVEL 26 MEQ/L (21-32); CHLORIDE LEVEL 110 MEQ/L (98-107); CREATININE FOR GFR 1.12 MG/DL (0.55-1.30); GLOMERULAR FILTRATION RATE 54.8 (>51); GLUCOSE, FASTING 397 MG/DL (70-100); SODIUM LEVEL 141 MEQ/L (136-145)
== END ==
LOC: M SFHCLERA 11:39
DX: I50.32 Chronic diastolic (congestive) heart failure (principal)

== ENCOUNTER → 2017-12-08 | Outpatient (CLI) | payer OTHER | LOC: M PAIN 10:30 | DX: M51.26 Other intervertebral disc displacement, lumbar region (principal); M53.3 Sacrococcygeal disorders, not elsewhere classified; E11.9 Type 2 diabetes mellitus without complications; I10 Essential (primary) hypertension; F32.9 Major depressive disorder, single episode, unspecified; G25.81 Restless legs syndrome; G47.33 Obstructive sleep apnea (adult) (pediatric); F17.210 Nicotine dependence, cigarettes, uncomplicated; Z79.82 Long term (current) use of aspirin; Z79.4 Long term (current) use of insulin; Z79.899 Other long term (current) drug therapy; Z88.8 Allergy status to other drugs, medicaments and biological substances | CPT/HCPCS: G0463 ==

== ENCOUNTER → 2017-12-17 | Outpatient (REF) | payer OTHER | LOC: M SFHCLERA 14:00 | DX: E11.319 Type 2 diabetes mellitus with unspecified diabetic retinopathy without macular edema (principal) ==

== ENCOUNTER → 2018-01-07 | Outpatient (REF) | payer OTHER | LOC: M SFHCLERA 18:13 | DX: R53.81 Other malaise (principal) ==

== ENCOUNTER → 2018-01-07 | Outpatient (CLI) | payer OTHER | LOC: M LRY 18:49 | DX: R06.02 Shortness of breath (principal) | CPT/HCPCS: 71046 ==

== ENCOUNTER → 2018-01-16 | Outpatient (CLI) | payer OTHER | LOC: M RAD 09:24 | DX: M51.26 Other intervertebral disc displacement, lumbar region (principal) | CPT/HCPCS: 72148 ==

== ENCOUNTER → 2018-01-19 | Outpatient (CLI) | payer OTHER | LOC: M PAIN 10:30 | DX: M51.26 Other intervertebral disc displacement, lumbar region (principal); M46.96 Unspecified inflammatory spondylopathy, lumbar region; E11.9 Type 2 diabetes mellitus without complications; I10 Essential (primary) hypertension; G43.909 Migraine, unspecified, not intractable, without status migrainosus; K21.9 Gastro-esophageal reflux disease without esophagitis; J44.9 Chronic obstructive pulmonary disease, unspecified; F17.210 Nicotine dependence, cigarettes, uncomplicated; Z79.4 Long term (current) use of insulin; Z79.82 Long term (current) use of aspirin; Z79.891 Long term (current) use of opiate analgesic; Z79.899 Other long term (current) drug therapy; Z88.8 Allergy status to other drugs, medicaments and biological substances | CPT/HCPCS: G0463 ==

== ENCOUNTER 2018-02-02 14:28 | Emergency (ER) | payer OTHER ==
[2018-02-02 15:06] LABS: BEDSIDE GLUCOSE 486 MG/DL (70-105)
[2018-02-02] MEDS: NS 1,000 ML IV (15:21)
[2018-02-02] MEDS: HumuLIN R (REGULAR) INSULIN (NovoLIN R) **100U/ML** PER UNIT IV ×2 (15:21→16:34)
[2018-02-02 15:22] LABS: BASO % 0.9 % (0.0-1.0); EOS # 0.1 10^3/uL (0.0-0.50); EOS % 3.5 % (0.0-3.0); HEMATOCRIT 33.2 % (36.0-47.0); HEMOGLOBIN 11.9 g/dl (12.0-15.5); IMMATURE GRANULOCYTE % 0.6 % (0-3.0); LYMPH # 1.3 10^3/uL (1.5-4.5); LYMPH % 36.4 % (24.0-44.0); MEAN CORPUSCULAR HEMOGLOBIN 33.1 pg (27.0-33.0); MEAN CORPUSCULAR HGB CONC 35.8 g/dl (32.0-36.5); MEAN CORPUSCULAR VOLUME 92.5 fl (80.0-96.0); MONO # 0.2 10^3/uL (0.0-0.8); MONO % 6.1 % (0.0-5.0); NEUTROPHILS # 1.8 10^3/uL (1.8-7.7); NEUTROPHILS % 52.5 % (36.0-66.0); PLATELET COUNT, AUTOMATED 115 10^3/uL (150-450); RED BLOOD COUNT 3.59 10^6/uL (4.00-5.40); RED CELL DISTRIBUTION WIDTH 12.4 % (11.5-14.5); WHITE BLOOD COUNT 3.4 10^3/uL (4.0-10.0)
[2018-02-02 15:23] LABS: VENOUS BASE EXCESS 0.2 (-2.0-2.0); VENOUS HCO3 25.3 MEQ/L (23.0-27.0); VENOUS O2 SATURATION 74.6 % (60.0-80.0); VENOUS PARTIAL PRESSURE CO2 42.8 mmHg (38.0-50.0); VENOUS PARTIAL PRESSURE O2 40.6 mmHg (30.0-50.0); VENOUS STANDARD HCO3 24.3 MEQ/L; VENOUS TOTAL CO2 26.6 MEQ/L (24.0-28.0)
[2018-02-02 15:34] LABS: KETONE, URINE AUTO RFX NEGATIVE (NEGATIVE); LEUKOCYTE ESTERASE UR AUTO RFX NEGATIVE (NEGATIVE); MUCUS, URINE RFX SMALL (NEGATIVE); NITRITE, URINE AUTO RFX NEGATIVE (NEGATIVE); RBC, URINE AUTO RFX 4 /HPF (0-3); SPECIFIC GRAVITY UR AUTO RFX 1.018 (1.002-1.035); SQUAM EPITHELIAL CELL UR AURFX 1 /HPF (0-6); WBC, URINE AUTO RFX 1 /HPF (0-3)
[2018-02-02 15:43] LABS: ALBUMIN/GLOBULIN RATIO 0.77 (1.00-1.93); ALKALINE PHOSPHATASE 122 U/L (45-117); ALT/SGPT 31 U/L (12-78); ANION GAP 8 MEQ/L (8-16); AST/SGOT 26 U/L (7-37); BILIRUBIN,DIRECT 0.2 MG/DL (0.0-0.2); BILIRUBIN,TOTAL 0.7 MG/DL (0.2-1.0); BLOOD UREA NITROGEN 33 MG/DL (7-18); CALCIUM LEVEL 8.7 MG/DL (8.5-10.1); CARBON DIOXIDE LEVEL 29 MEQ/L (21-32); CHLORIDE LEVEL 100 MEQ/L (98-107); LIPASE 691 U/L (73-393); POTASSIUM SERUM 3.5 MEQ/L (3.5-5.1); SODIUM LEVEL 137 MEQ/L (136-145); TOTAL PROTEIN 6.9 GM/DL (6.4-8.2)
[2018-02-02 15:50] LABS: ESTIMATED AVERAGE GLUCOSE 321 MG/DL (60-110); HEMOGLOBIN A1c 12.8 %
[2018-02-02 15:51] LABS: GLUCOSE, FASTING 494 MG/DL (70-100)
[2018-02-02 16:20] LABS: BEDSIDE GLUCOSE 422 MG/DL (70-105)
[2018-02-02 17:40] LABS: BEDSIDE GLUCOSE 324 MG/DL (70-105)
[2018-02-02] MEDS: PERCOCET 5MG/325MG TAB PO (17:41)
== END 2018-02-02 18:30 | disposition home or self-care (01) ==
LOC: M ED 14:28
DX: E11.65 Type 2 diabetes mellitus with hyperglycemia (principal); Z91.19 Patient's noncompliance with other medical treatment and regimen; K85.90 Acute pancreatitis without necrosis or infection, unspecified; I10 Essential (primary) hypertension; K21.9 Gastro-esophageal reflux disease without esophagitis; N19 Unspecified kidney failure; Z79.899 Other long term (current) drug therapy; Z79.82 Long term (current) use of aspirin; Z79.4 Long term (current) use of insulin; Z88.8 Allergy status to other drugs, medicaments and biological substances
CPT/HCPCS: 83690

== ENCOUNTER → 2018-02-02 | Outpatient (CLI) | payer OTHER ==
[2018-02-02 11:56] LABS: ALBUMIN 2.8 GM/DL (3.2-5.2); ANION GAP 12 MEQ/L (8-16); BLOOD UREA NITROGEN 31 MG/DL (7-18); CALCIUM LEVEL 8.4 MG/DL (8.5-10.1); CARBON DIOXIDE LEVEL 26 MEQ/L (21-32); CHLORIDE LEVEL 98 MEQ/L (98-107); CREATININE FOR GFR 1.36 MG/DL (0.55-1.30); GLOMERULAR FILTRATION RATE 43.6 (>51); PHOSPHORUS LEVEL 3.4 MG/DL (2.5-4.9); POTASSIUM SERUM 3.5 MEQ/L (3.5-5.1); SODIUM LEVEL 136 MEQ/L (136-145)
[2018-02-02 12:56] LABS: GLUCOSE, FASTING 696 MG/DL (70-100)
== END ==
LOC: M LRY 08:55
DX: I50.812 Chronic right heart failure (principal)
CPT/HCPCS: 80069

== ENCOUNTER 2018-02-03 12:18 | Emergency (ER) | payer OTHER ==
[2018-02-03] MEDS: NS 1,000 ML IV (13:51)
[2018-02-03 13:55] LABS: EOS # 0.1 10^3/uL (0.0-0.50); EOS % 3.2 % (0.0-3.0); HEMATOCRIT 33.2 % (36.0-47.0); IMMATURE GRANULOCYTE % 0.5 % (0-3.0); LYMPH # 1.3 10^3/uL (1.5-4.5); LYMPH % 30.8 % (24.0-44.0); MEAN CORPUSCULAR HEMOGLOBIN 33.1 pg (27.0-33.0); MEAN CORPUSCULAR HGB CONC 36.1 g/dl (32.0-36.5); MEAN CORPUSCULAR VOLUME 91.5 fl (80.0-96.0); MONO # 0.2 10^3/uL (0.0-0.8); MONO % 4.6 % (0.0-5.0); NEUTROPHILS # 2.5 10^3/uL (1.8-7.7); NEUTROPHILS % 59.9 % (36.0-66.0); PLATELET COUNT, AUTOMATED 115 10^3/uL (150-450); RED BLOOD COUNT 3.63 10^6/uL (4.00-5.40); RED CELL DISTRIBUTION WIDTH 12.4 % (11.5-14.5); WHITE BLOOD COUNT 4.1 10^3/uL (4.0-10.0)
[2018-02-03 13:57] LABS: VENOUS BASE EXCESS -0.3 (-2.0-2.0); VENOUS HCO3 24.3 MEQ/L (23.0-27.0); VENOUS PARTIAL PRESSURE CO2 39.9 mmHg (38.0-50.0); VENOUS PARTIAL PRESSURE O2 43.7 mmHg (30.0-50.0); VENOUS PH 7.403 UNITS (7.330-7.430); VENOUS STANDARD HCO3 23.8 MEQ/L; VENOUS TOTAL CO2 25.6 MEQ/L (24.0-28.0)
[2018-02-03 14:06] LABS: OSMOLALITY SERUM 308 MOSM/KG (275-295)
[2018-02-03 14:18] LABS: ALBUMIN 2.9 GM/DL (3.2-5.2); ALBUMIN/GLOBULIN RATIO 0.81 (1.00-1.93); ALKALINE PHOSPHATASE 115 U/L (45-117); ALT/SGPT 29 U/L (12-78); ANION GAP 7 MEQ/L (8-16); AST/SGOT 32 U/L (7-37); BILIRUBIN,DIRECT 0.2 MG/DL (0.0-0.2); BILIRUBIN,TOTAL 0.7 MG/DL (0.2-1.0); BLOOD UREA NITROGEN 33 MG/DL (7-18); CALCIUM LEVEL 8.9 MG/DL (8.5-10.1); CARBON DIOXIDE LEVEL 28 MEQ/L (21-32); CHLORIDE LEVEL 105 MEQ/L (98-107); CREATININE FOR GFR 1.09 MG/DL (0.55-1.30); GLOMERULAR FILTRATION RATE 56.3 (>51); GLUCOSE, FASTING 335 MG/DL (70-100); LIPASE 720 U/L (73-393); POTASSIUM SERUM 3.8 MEQ/L (3.5-5.1); SODIUM LEVEL 140 MEQ/L (136-145); TOTAL PROTEIN 6.5 GM/DL (6.4-8.2)
[2018-02-03] MEDS ORDERED: ISOVUE-370 76% 100ML VIAL (Q9967) As Ordered (15:24)
[2018-02-03 15:25] LABS: BEDSIDE GLUCOSE 311 MG/DL (70-105)
[2018-02-03 16:34] LABS: BEDSIDE GLUCOSE 270 MG/DL (70-105)
[2018-02-05 14:22] LABS: BEDSIDE GLUCOSE 388 MG/DL (70-105)
== END 2018-02-03 16:54 | disposition home or self-care (01) ==
LOC: M ED 12:18
DX: E11.65 Type 2 diabetes mellitus with hyperglycemia (principal); K85.90 Acute pancreatitis without necrosis or infection, unspecified; Z72.0 Tobacco use; Z98.61 Coronary angioplasty status; G43.909 Migraine, unspecified, not intractable, without status migrainosus; G25.81 Restless legs syndrome; E11.40 Type 2 diabetes mellitus with diabetic neuropathy, unspecified; I50.9 Heart failure, unspecified; I10 Essential (primary) hypertension; J45.909 Unspecified asthma, uncomplicated; J44.9 Chronic obstructive pulmonary disease, unspecified; G47.30 Sleep apnea, unspecified; I27.20 Pulmonary hypertension, unspecified; Z87.01 Personal history of pneumonia (recurrent); R04.0 Epistaxis; K21.9 Gastro-esophageal reflux disease without esophagitis; K52.9 Noninfective gastroenteritis and colitis, unspecified; K74.60 Unspecified cirrhosis of liver; N17.9 Acute kidney failure, unspecified; Z87.440 Personal history of urinary (tract) infections; Z87.442 Personal history of urinary calculi; M54.30 Sciatica, unspecified side; D64.9 Anemia, unspecified; E88.09 Other disorders of plasma-protein metabolism, not elsewhere classified; D72.819 Decreased white blood cell count, unspecified; F41.9 Anxiety disorder, unspecified; F32.9 Major depressive disorder, single episode, unspecified; Z79.82 Long term (current) use of aspirin; Z79.4 Long term (current) use of insulin; Z79.899 Other long term (current) drug therapy; Z88.8 Allergy status to other drugs, medicaments and biological substances
CPT/HCPCS: Q9967

== ENCOUNTER 2018-02-15 16:26 | Emergency (ER) | payer OTHER ==
[2018-02-15 17:35] LABS: BASO % 0.6 % (0.0-1.0); EOS # 0.2 10^3/uL (0.0-0.50); EOS % 4.9 % (0.0-3.0); HEMATOCRIT 34.8 % (36.0-47.0); HEMOGLOBIN 11.9 g/dl (12.0-15.5); LYMPH # 1.4 10^3/uL (1.5-4.5); LYMPH % 43.4 % (24.0-44.0); MEAN CORPUSCULAR HEMOGLOBIN 32.2 pg (27.0-33.0); MEAN CORPUSCULAR HGB CONC 34.2 g/dl (32.0-36.5); MEAN CORPUSCULAR VOLUME 94.1 fl (80.0-96.0); MONO # 0.2 10^3/uL (0.0-0.8); MONO % 6.7 % (0.0-5.0); NEUTROPHILS # 1.5 10^3/uL (1.8-7.7); NEUTROPHILS % 44.4 % (36.0-66.0); PLATELET COUNT, AUTOMATED 141 10^3/uL (150-450); PROTHROMBIN TIME 13.3 SECONDS (12.1-14.4); RED CELL DISTRIBUTION WIDTH 12.7 % (11.5-14.5); WHITE BLOOD COUNT 3.3 10^3/uL (4.0-10.0)
[2018-02-15 17:36] LABS: PARTIAL THROMBOPLASTIN TIME 26.2 SECONDS (25.4-37.6)
[2018-02-15 17:40] LABS: ALBUMIN 2.9 GM/DL (3.2-5.2); ALBUMIN/GLOBULIN RATIO 0.78 (1.00-1.93); ALKALINE PHOSPHATASE 117 U/L (45-117); ALT/SGPT 33 U/L (12-78); ANION GAP 7 MEQ/L (8-16); AST/SGOT 35 U/L (7-37); BILIRUBIN,DIRECT 0.2 MG/DL (0.0-0.2); BILIRUBIN,TOTAL 0.6 MG/DL (0.2-1.0); BLOOD UREA NITROGEN 22 MG/DL (7-18); CALCIUM LEVEL 8.7 MG/DL (8.5-10.1); CARBON DIOXIDE LEVEL 27 MEQ/L (21-32); CHLORIDE LEVEL 110 MEQ/L (98-107); CPK CREATINE PHOSPHOKINASE 106 U/L (26-192); CREATININE FOR GFR 1.25 MG/DL (0.55-1.30); FREE T4 0.99 NG/DL (0.76-1.46); GLOMERULAR FILTRATION RATE 48.1 (>51); GLUCOSE, FASTING 135 MG/DL (70-100); LIPASE 478 U/L (73-393); POTASSIUM SERUM 3.8 MEQ/L (3.5-5.1); SODIUM LEVEL 144 MEQ/L (136-145); TOTAL PROTEIN 6.6 GM/DL (6.4-8.2); TROPONIN I < 0.02 NG/ML (< 0.10)
[2018-02-15 17:46] LABS: CK-MB VALUE MASS 1.6 NG/ML (<3.6); NT-PRO BNP 238 PG/ML (<125)
[2018-02-15] MEDS: oxyCODONE 5MG TAB PO (21:45)
== END 2018-02-15 22:04 | disposition home or self-care (01) ==
LOC: M ED 16:26
DX: K85.90 Acute pancreatitis without necrosis or infection, unspecified (principal); E11.9 Type 2 diabetes mellitus without complications; I10 Essential (primary) hypertension; F33.9 Major depressive disorder, recurrent, unspecified; K75.81 Nonalcoholic steatohepatitis (NASH); G25.81 Restless legs syndrome; F17.200 Nicotine dependence, unspecified, uncomplicated; Z87.19 Personal history of other diseases of the digestive system; Z88.8 Allergy status to other drugs, medicaments and biological substances; Z79.82 Long term (current) use of aspirin; Z79.899 Other long term (current) drug therapy; Z79.4 Long term (current) use of insulin
CPT/HCPCS: 71045

== ENCOUNTER 2018-02-16 23:18 | Inpatient (IN) | payer OTHER ==
[2018-02-17] MEDS: NS 1,000 ML IV ×3 (00:18→12:35)
[2018-02-17] MEDS: ONDANSETRON 4MG/2ML VIAL (J2405) IV (00:18)
[2018-02-17] MEDS: KETOROLAC 30 MG/ML VIAL (J1885) IV (00:19)
[2018-02-17 00:28] LABS: BASO % 0.4 % (0.0-1.0); EOS # 0.2 10^3/uL (0.0-0.50); EOS % 2.4 % (0.0-3.0); HEMATOCRIT 32.8 % (36.0-47.0); HEMOGLOBIN 11.4 g/dl (12.0-15.5); IMMATURE GRANULOCYTE % 0.4 % (0-3.0); LYMPH # 1.4 10^3/uL (1.5-4.5); LYMPH % 21.2 % (24.0-44.0); MEAN CORPUSCULAR HGB CONC 34.8 g/dl (32.0-36.5); MEAN CORPUSCULAR VOLUME 95.1 fl (80.0-96.0); MONO # 0.4 10^3/uL (0.0-0.8); MONO % 5.2 % (0.0-5.0); NEUTROPHILS # 4.7 10^3/uL (1.8-7.7); NEUTROPHILS % 70.4 % (36.0-66.0); PLATELET COUNT, AUTOMATED 129 10^3/uL (150-450); RED BLOOD COUNT 3.45 10^6/uL (4.00-5.40); RED CELL DISTRIBUTION WIDTH 12.8 % (11.5-14.5); WHITE BLOOD COUNT 6.7 10^3/uL (4.0-10.0)
[2018-02-17 00:31] LABS: ALBUMIN 2.6 GM/DL (3.2-5.2); ALBUMIN/GLOBULIN RATIO 0.68 (1.00-1.93); ALKALINE PHOSPHATASE 118 U/L (45-117); ALT/SGPT 33 U/L (12-78); ANION GAP 7 MEQ/L (8-16); AST/SGOT 42 U/L (7-37); BILIRUBIN,TOTAL 0.6 MG/DL (0.2-1.0); BLOOD UREA NITROGEN 30 MG/DL (7-18); CALCIUM LEVEL 7.8 MG/DL (8.5-10.1); CARBON DIOXIDE LEVEL 25 MEQ/L (21-32); CHLORIDE LEVEL 107 MEQ/L (98-107); CREATININE FOR GFR 1.32 MG/DL (0.55-1.30); GLOMERULAR FILTRATION RATE 45.2 (>51); GLUCOSE, FASTING 356 MG/DL (70-100); KETONE, URINE AUTO RFX NEGATIVE (NEGATIVE); NITRITE, URINE AUTO RFX NEGATIVE (NEGATIVE); RBC, URINE AUTO RFX 6 /HPF (0-3); SODIUM LEVEL 139 MEQ/L (136-145); SPECIFIC GRAVITY UR AUTO RFX 1.014 (1.002-1.035); SQUAM EPITHELIAL CELL UR AURFX 6 /HPF (0-6); TOTAL PROTEIN 6.4 GM/DL (6.4-8.2); WBC, URINE AUTO RFX 4 /HPF (0-3)
[2018-02-17 00:32] LABS: LEUKOCYTE ESTERASE UR AUTO RFX TRACE (NEGATIVE)
[2018-02-17] MEDS: MORPHINE 4 MG/ML 1ML VIAL/SYRINGE (J2270) IV ×6 (01:22→22:25)
[2018-02-17 02:07] LABS: LIPASE 506 U/L (73-393)
[2018-02-17] MEDS ORDERED: ACETAMINOPHEN TAB 650MG DOSE (2X325MG) PO (02:30)
[2018-02-17] MEDS ORDERED: IPRATROPIUM 0.5MG/ALBUTEROL 2.5MG INH SOL UD 3ML (DUONEB)(J7620) INH (03:00)
[2018-02-17] MEDS ORDERED: GLUCAGON FOR INJ 1 MG VIAL (J1610) SC (03:00)
[2018-02-17] MEDS ORDERED: DEXTROSE 50% 50 ML SYRINGE IV (03:00)
[2018-02-17] MEDS ORDERED: ALBUTEROL 90 MCG/ACT 8GM HFA INHALER INH (03:00)
[2018-02-17] MEDS ORDERED: MECLIZINE 25 MG TABLET PO (03:00)
[2018-02-17] MEDS ORDERED: FLUTICASONE PROP 0.05% NASAL SPRAY 16 GM (FLONASE) (03:00)
[2018-02-17] MEDS ORDERED: rOPINIRole 2MG TAB PO (03:00)
[2018-02-17] MEDS: CIPROFLOXACIN 200 MG in APPROPRIATE DILUENT 1 EA IV ×2 (04:13→17:06)
[2018-02-17 04:28] LABS: C REACTIVE PROTEIN QUANTITATIV 3.27 MG/DL (0.00-0.30); MAGNESIUM LEVEL 1.9 MG/DL (1.8-2.4); PHOSPHORUS LEVEL 3.1 MG/DL (2.5-4.9)
[2018-02-17] MEDS: metroNIDAZOLE 500 MG in APPROPRIATE DILUENT 1 EA IV ×3 (06:06→20:41)
[2018-02-17] MEDS: HEPARIN SOD (PORCINE) 5000 UNITS/ML VIAL SC ×3 (06:07→22:06)
[2018-02-17 06:30] LABS: HEMATOCRIT 33.4 % (36.0-47.0); HEMOGLOBIN 11.1 g/dl (12.0-15.5); MEAN CORPUSCULAR HEMOGLOBIN 32.6 pg (27.0-33.0); MEAN CORPUSCULAR HGB CONC 33.2 g/dl (32.0-36.5); MEAN CORPUSCULAR VOLUME 97.9 fl (80.0-96.0); PLATELET COUNT, AUTOMATED 120 10^3/uL (150-450); RED BLOOD COUNT 3.41 10^6/uL (4.00-5.40); RED CELL DISTRIBUTION WIDTH 12.7 % (11.5-14.5); WHITE BLOOD COUNT 6.7 10^3/uL (4.0-10.0)
[2018-02-17 06:45] LABS: ANION GAP 6 MEQ/L (8-16); BLOOD UREA NITROGEN 31 MG/DL (7-18); CALCIUM LEVEL 7.7 MG/DL (8.5-10.1); CARBON DIOXIDE LEVEL 27 MEQ/L (21-32); CHLORIDE LEVEL 110 MEQ/L (98-107); CREATININE FOR GFR 1.33 MG/DL (0.55-1.30); GLOMERULAR FILTRATION RATE 44.8 (>51); GLUCOSE, FASTING 190 MG/DL (70-100); POTASSIUM SERUM 3.8 MEQ/L (3.5-5.1); SODIUM LEVEL 143 MEQ/L (136-145)
[2018-02-17] MEDS: CARVedilol 12.5 MG TAB PO ×2 (08:30→20:44)
[2018-02-17] MEDS: DICYCLOMINE 10 MG CAP PO ×4 (08:30→20:48)
[2018-02-17] MEDS: LACTULOSE 20 GM/30 ML SYRUP UD PO ×2 (08:31→20:40)
[2018-02-17] MEDS: rifAXIMin 550 MG TAB (XIFAXAN) PO ×2 (08:31→20:41)
[2018-02-17] MEDS: SPIRONOLACTONE 50 MG TAB PO (08:31)
[2018-02-17] MEDS: LEVEMIR (INSULIN DETEMIR) 1 UNITS/0.01ML SC ×2 (08:31→20:41)
[2018-02-17] MEDS: PREGABALIN 75 MG CAP(LYRICA) PO ×2 (08:31→20:41)
[2018-02-17] MEDS: ASPIRIN 81 MG ENTERIC TAB PO (08:31)
[2018-02-17] MEDS: OMEPRAZOLE 20 MG CAP PO (08:31)
[2018-02-17] MEDS: POTASSIUM CHLORIDE 10 MEQ SR TABLET PO (08:31)
[2018-02-17] MEDS: HumaLOG INSULIN (NovoLOG) PER UNIT SC ×4 (08:32→20:48)
[2018-02-17] MEDS ORDERED: LOSARTAN 50 MG TAB PO (09:00)
[2018-02-17] MEDS ORDERED: BUMETANIDE 1 MG TAB PO (09:00)
[2018-02-17 09:17] LABS: FERRITIN 28 NG/ML (8-252); IRON (FE) 57 UG/DL (50-170); PERCENT SATURATION 16.6 % (13.2-45.0); TOTAL IRON BINDING CAPACITY 344 UG/DL (250-450)
[2018-02-17 09:34] LABS: VITAMIN B12 LEVEL 355 PG/ML (247-911)
[2018-02-17 09:35] LABS: FOLATE 15.7 NG/ML (>5.4)
[2018-02-17 09:58] LABS: ERYTHROCYTE SEDIMENTATION RATE 46 mm/hr (0-30)
[2018-02-17 11:24] LABS: BEDSIDE GLUCOSE 111 MG/DL (70-105)
[2018-02-17 16:56] LABS: BEDSIDE GLUCOSE 136 MG/DL (70-105)
[2018-02-17 20:30] LABS: BEDSIDE GLUCOSE 140 MG/DL (70-105)
[2018-02-17] MEDS: MONTELUKAST 10 MG TAB PO (20:41)
[2018-02-17] MEDS: MAGNESIUM OXIDE 400 MG TAB (MAG-OX) PO (20:41)
[2018-02-17] MEDS: rOPINIRole 2MG TAB PO (20:42)
[2018-02-18] MEDS: NYSTATIN 100,000 UNITS/GM TOPICAL PWD 15 GM TOP ×3 (00:54→20:15)
[2018-02-18] MEDS: CIPROFLOXACIN 200 MG in APPROPRIATE DILUENT 1 EA IV ×2 (03:26→16:14)
[2018-02-18 04:23] LABS: BEDSIDE GLUCOSE 88 MG/DL (70-105)
[2018-02-18] MEDS: metroNIDAZOLE 500 MG in APPROPRIATE DILUENT 1 EA IV ×3 (04:35→20:15)
[2018-02-18] MEDS: MOM 30ML SUSPENSION UDC PO (06:29)
[2018-02-18] MEDS: HEPARIN SOD (PORCINE) 5000 UNITS/ML VIAL SC ×3 (06:29→20:57)
[2018-02-18] MEDS: MORPHINE 4 MG/ML 1ML VIAL/SYRINGE (J2270) IV ×3 (06:38→20:04)
[2018-02-18 06:51] LABS: HEMATOCRIT 33.7 % (36.0-47.0); HEMOGLOBIN 11.4 g/dl (12.0-15.5); MEAN CORPUSCULAR HEMOGLOBIN 32.9 pg (27.0-33.0); MEAN CORPUSCULAR HGB CONC 33.8 g/dl (32.0-36.5); MEAN CORPUSCULAR VOLUME 97.1 fl (80.0-96.0); PLATELET COUNT, AUTOMATED 124 10^3/uL (150-450); RED BLOOD COUNT 3.47 10^6/uL (4.00-5.40); RED CELL DISTRIBUTION WIDTH 12.5 % (11.5-14.5); WHITE BLOOD COUNT 6.1 10^3/uL (4.0-10.0)
[2018-02-18 07:10] LABS: ANION GAP 5 MEQ/L (8-16); BLOOD UREA NITROGEN 22 MG/DL (7-18); C REACTIVE PROTEIN QUANTITATIV 5.03 MG/DL (0.00-0.30); CARBON DIOXIDE LEVEL 24 MEQ/L (21-32); CHLORIDE LEVEL 109 MEQ/L (98-107); CREATININE FOR GFR 0.87 MG/DL (0.55-1.30); GLOMERULAR FILTRATION RATE > 60.0 (>51); GLUCOSE, FASTING 118 MG/DL (70-100); POTASSIUM SERUM 4.2 MEQ/L (3.5-5.1); SODIUM LEVEL 138 MEQ/L (136-145)
[2018-02-18] MEDS: HumaLOG INSULIN (NovoLOG) PER UNIT SC ×4 (07:30→21:00)
[2018-02-18] MEDS: OMEPRAZOLE 20 MG CAP PO (09:03)
[2018-02-18] MEDS: DICYCLOMINE 10 MG CAP PO ×4 (09:03→20:14)
[2018-02-18] MEDS: LACTULOSE 20 GM/30 ML SYRUP UD PO ×3 (09:03→21:00)
[2018-02-18] MEDS: SPIRONOLACTONE 50 MG TAB PO (09:03)
[2018-02-18] MEDS: LEVEMIR (INSULIN DETEMIR) 1 UNITS/0.01ML SC ×3 (09:03→23:09)
[2018-02-18] MEDS: rifAXIMin 550 MG TAB (XIFAXAN) PO ×2 (09:03→20:14)
[2018-02-18] MEDS: POTASSIUM CHLORIDE 10 MEQ SR TABLET PO (09:04)
[2018-02-18] MEDS: ASPIRIN 81 MG ENTERIC TAB PO (09:04)
[2018-02-18] MEDS: PREGABALIN 75 MG CAP(LYRICA) PO ×2 (09:04→20:14)
[2018-02-18] MEDS: CARVedilol 12.5 MG TAB PO ×2 (09:04→20:14)
[2018-02-18 11:23] LABS: BEDSIDE GLUCOSE 212 MG/DL (70-105)
[2018-02-18] MEDS: GOLYTELY SOLN 4000 ML BTL PO ×2 (12:00→18:00)
[2018-02-18 16:41] LABS: BEDSIDE GLUCOSE 63 MG/DL (70-105)
[2018-02-18] MEDS: rOPINIRole 2MG TAB PO (20:12)
[2018-02-18] MEDS: MAGNESIUM OXIDE 400 MG TAB (MAG-OX) PO (20:14)
[2018-02-18] MEDS: MONTELUKAST 10 MG TAB PO (20:14)
[2018-02-18] MEDS: TOPIRAMATE (TopAMAX) 25 MG TAB PO (20:57)
[2018-02-18] MEDS: ONDANSETRON 4MG/2ML VIAL (J2405) IV (20:58)
[2018-02-18 21:28] LABS: BEDSIDE GLUCOSE 62 MG/DL (70-105)
[2018-02-18 23:08] LABS: BEDSIDE GLUCOSE 72 MG/DL (70-105)
[2018-02-19 01:56] LABS: BEDSIDE GLUCOSE 50 MG/DL (70-105)
[2018-02-19 02:20] LABS: BEDSIDE GLUCOSE 83 MG/DL (70-105)
[2018-02-19] MEDS: CIPROFLOXACIN 200 MG in APPROPRIATE DILUENT 1 EA IV ×2 (03:36→16:48)
[2018-02-19 04:48] LABS: BEDSIDE GLUCOSE 101 MG/DL (70-105)
[2018-02-19] MEDS: MORPHINE 4 MG/ML 1ML VIAL/SYRINGE (J2270) IV ×3 (04:55→21:32)
[2018-02-19] MEDS: GOLYTELY SOLN 4000 ML BTL PO (05:00)
[2018-02-19] MEDS: metroNIDAZOLE 500 MG in APPROPRIATE DILUENT 1 EA IV ×3 (05:00→21:17)
[2018-02-19] MEDS: HEPARIN SOD (PORCINE) 5000 UNITS/ML VIAL SC ×3 (05:51→21:29)
[2018-02-19 06:34] LABS: HEMATOCRIT 28.5 % (36.0-47.0); HEMOGLOBIN 9.8 g/dl (12.0-15.5); MEAN CORPUSCULAR HEMOGLOBIN 32.7 pg (27.0-33.0); MEAN CORPUSCULAR HGB CONC 34.4 g/dl (32.0-36.5); PLATELET COUNT, AUTOMATED 104 10^3/uL (150-450); RED CELL DISTRIBUTION WIDTH 12.6 % (11.5-14.5); WHITE BLOOD COUNT 4.2 10^3/uL (4.0-10.0)
[2018-02-19 07:05] LABS: ANION GAP 8 MEQ/L (8-16); BLOOD UREA NITROGEN 14 MG/DL (7-18); C REACTIVE PROTEIN QUANTITATIV 2.78 MG/DL (0.00-0.30); CALCIUM LEVEL 7.8 MG/DL (8.5-10.1); CARBON DIOXIDE LEVEL 25 MEQ/L (21-32); CHLORIDE LEVEL 104 MEQ/L (98-107); CREATININE FOR GFR 0.87 MG/DL (0.55-1.30); GLOMERULAR FILTRATION RATE > 60.0 (>51); GLUCOSE, FASTING 86 MG/DL (70-100); SODIUM LEVEL 137 MEQ/L (136-145)
[2018-02-19] MEDS: HumaLOG INSULIN (NovoLOG) PER UNIT SC ×4 (07:30→21:00)
[2018-02-19] MEDS: LEVEMIR (INSULIN DETEMIR) 1 UNITS/0.01ML SC ×2 (08:36→21:18)
[2018-02-19] MEDS: LACTULOSE 20 GM/30 ML SYRUP UD PO ×2 (09:00→21:17)
[2018-02-19] MEDS: PREGABALIN 75 MG CAP(LYRICA) PO ×2 (09:00→21:18)
[2018-02-19] MEDS: POTASSIUM CHLORIDE 10 MEQ SR TABLET PO (09:00)
[2018-02-19] MEDS: CARVedilol 12.5 MG TAB PO ×2 (09:00→21:17)
[2018-02-19] MEDS: OMEPRAZOLE 20 MG CAP PO (09:00)
[2018-02-19] MEDS: DICYCLOMINE 10 MG CAP PO ×4 (09:00→21:18)
[2018-02-19] MEDS: ASPIRIN 81 MG ENTERIC TAB PO (09:00)
[2018-02-19] MEDS: SPIRONOLACTONE 50 MG TAB PO (09:00)
[2018-02-19] MEDS: rifAXIMin 550 MG TAB (XIFAXAN) PO ×2 (09:00→21:18)
[2018-02-19] MEDS: NYSTATIN 100,000 UNITS/GM TOPICAL PWD 15 GM TOP ×2 (09:31→21:22)
[2018-02-19 11:48] LABS: BEDSIDE GLUCOSE 61 MG/DL (70-105)
[2018-02-19] MEDS: GLUCOSE 4 GM CHEW TABLET PO ×2 (13:00→13:33)
[2018-02-19 13:24] LABS: BEDSIDE GLUCOSE 61 MG/DL (70-105)
[2018-02-19 13:51] LABS: BEDSIDE GLUCOSE 88 MG/DL (70-105)
[2018-02-19] MEDS ORDERED: PROPOFOL 200 MG/20 ML VIAL As Ordered ×5 (14:43→15:42)
[2018-02-19] MEDS ORDERED: LIDOCAINE 2% INJ 100 MG/5 ML SDV (FOR ANES.) As Ordered ×2 (14:43→15:41)
[2018-02-19] MEDS: LOSARTAN 50 MG TAB PO (16:48)
[2018-02-19 17:11] LABS: BEDSIDE GLUCOSE 88 MG/DL (70-105)
[2018-02-19 20:29] LABS: BEDSIDE GLUCOSE 167 MG/DL (70-105)
[2018-02-19] MEDS: rOPINIRole 2MG TAB PO (21:17)
[2018-02-19] MEDS: MAGNESIUM OXIDE 400 MG TAB (MAG-OX) PO (21:18)
[2018-02-19] MEDS: MONTELUKAST 10 MG TAB PO (21:18)
[2018-02-20 00:07] LABS: ANCA-ATYPICAL <1:20 titer (Neg:<1:20); ANTI-SACCHAROMYCES CEREV. IgA 81.8 Units (0.0-24.9); ANTI-SACCHAROMYCES CEREV. IgG <20.0 Units (0.0-24.9); CYTOPLASMIC NEUTROP AB ANCA-C <1:20 titer (Neg:<1:20); PERINUCLEAR AB ANCA-P <1:20 titer (Neg:<1:20)
[2018-02-20] MEDS: CIPROFLOXACIN 200 MG in APPROPRIATE DILUENT 1 EA IV (03:22)
[2018-02-20] MEDS: MORPHINE 4 MG/ML 1ML VIAL/SYRINGE (J2270) IV (03:26)
[2018-02-20] MEDS: metroNIDAZOLE 500 MG in APPROPRIATE DILUENT 1 EA IV (05:00)
[2018-02-20] MEDS: HEPARIN SOD (PORCINE) 5000 UNITS/ML VIAL SC (06:20)
[2018-02-20] MEDS: metroNIDAZOLE (FLAGYL) 500 MG TAB PO (06:20)
[2018-02-20] MEDS: CIPROFLOXACIN 250 MG TAB PO (06:20)
[2018-02-20 07:26] LABS: HEMATOCRIT 27.7 % (36.0-47.0); HEMOGLOBIN 9.4 g/dl (12.0-15.5); MEAN CORPUSCULAR HEMOGLOBIN 32.6 pg (27.0-33.0); MEAN CORPUSCULAR HGB CONC 33.9 g/dl (32.0-36.5); MEAN CORPUSCULAR VOLUME 96.2 fl (80.0-96.0); PLATELET COUNT, AUTOMATED 113 10^3/uL (150-450); RED BLOOD COUNT 2.88 10^6/uL (4.00-5.40); RED CELL DISTRIBUTION WIDTH 12.8 % (11.5-14.5)
[2018-02-20 07:49] LABS: ANION GAP 9 MEQ/L (8-16); BLOOD UREA NITROGEN 11 MG/DL (7-18); C REACTIVE PROTEIN QUANTITATIV 1.68 MG/DL (0.00-0.30); CALCIUM LEVEL 8.1 MG/DL (8.5-10.1); CARBON DIOXIDE LEVEL 23 MEQ/L (21-32); CHLORIDE LEVEL 112 MEQ/L (98-107); CREATININE FOR GFR 0.85 MG/DL (0.55-1.30); GLOMERULAR FILTRATION RATE > 60.0 (>51); GLUCOSE, FASTING 135 MG/DL (70-100); SODIUM LEVEL 144 MEQ/L (136-145)
[2018-02-20 07:53] LABS: ALBUMIN 2.3 GM/DL (3.2-5.2); ALKALINE PHOSPHATASE 97 U/L (45-117); ALT/SGPT 25 U/L (12-78); ANION GAP 8 MEQ/L (8-16); AST/SGOT 32 U/L (7-37); BILIRUBIN,TOTAL 0.4 MG/DL (0.2-1.0); BLOOD UREA NITROGEN 11 MG/DL (7-18); CALCIUM LEVEL 8.3 MG/DL (8.5-10.1); CARBON DIOXIDE LEVEL 22 MEQ/L (21-32); CHLORIDE LEVEL 112 MEQ/L (98-107); CREATININE FOR GFR 0.86 MG/DL (0.55-1.30); GLOMERULAR FILTRATION RATE > 60.0 (>51); GLUCOSE, FASTING 138 MG/DL (70-100); MAGNESIUM LEVEL 2.1 MG/DL (1.8-2.4); POTASSIUM SERUM 3.9 MEQ/L (3.5-5.1); SODIUM LEVEL 142 MEQ/L (136-145); TOTAL PROTEIN 5.6 GM/DL (6.4-8.2)
[2018-02-20 08:06] LABS: IgG SUBCLASS 4(ONLY) 5 mg/dL (2-96)
[2018-02-20 08:06] LABS: ANTI-MITOCHONDRIAL ANTIBODY 1.5 Units (0.0-20.0)
[2018-02-20] MEDS: LEVEMIR (INSULIN DETEMIR) 1 UNITS/0.01ML SC (08:18)
[2018-02-20] MEDS: POTASSIUM CHLORIDE 10 MEQ SR TABLET PO (08:19)
[2018-02-20] MEDS: HumaLOG INSULIN (NovoLOG) PER UNIT SC (08:19)
[2018-02-20] MEDS: OMEPRAZOLE 20 MG CAP PO (08:19)
[2018-02-20] MEDS: LACTULOSE 20 GM/30 ML SYRUP UD PO (08:19)
[2018-02-20] MEDS: rifAXIMin 550 MG TAB (XIFAXAN) PO (08:19)
[2018-02-20] MEDS: SPIRONOLACTONE 50 MG TAB PO (08:20)
[2018-02-20] MEDS: PREGABALIN 75 MG CAP(LYRICA) PO (08:20)
[2018-02-20] MEDS: LOSARTAN 50 MG TAB PO (08:20)
[2018-02-20] MEDS: NYSTATIN 100,000 UNITS/GM TOPICAL PWD 15 GM TOP (08:20)
[2018-02-20] MEDS: ASPIRIN 81 MG ENTERIC TAB PO (08:20)
[2018-02-20] MEDS: DICYCLOMINE 10 MG CAP PO (08:20)
[2018-02-20] MEDS: CARVedilol 12.5 MG TAB PO (08:21)
[2018-02-20] MEDS ORDERED: CIPROFLOXACIN 250 MG TAB PO ×2 (18:00)
== END 2018-02-20 11:02 | disposition home or self-care (01) | DRG 245 ==
LOC: M ED 23:18 → M MS5PR 02-17 02:08 → M ED INP 02-17 02:08 → M MS5PR 02-17 03:28
PROC: 0DBL8ZX Excision of Transverse Colon, Via Natural or Artificial Opening Endoscopic, Diagnostic (ICD-10-PCS; principal; 2018-02-19 14:15)
PROC: 0DBK8ZX Excision of Ascending Colon, Via Natural or Artificial Opening Endoscopic, Diagnostic (ICD-10-PCS; 2018-02-19 14:15)
PROC: 0W3P8ZZ Control Bleeding in Gastrointestinal Tract, Via Natural or Artificial Opening Endoscopic (ICD-10-PCS; 2018-02-19 14:15)
DX: K51.918 Ulcerative colitis, unspecified with other complication (principal); K74.60 Unspecified cirrhosis of liver; E11.51 Type 2 diabetes mellitus with diabetic peripheral angiopathy without gangrene; N17.9 Acute kidney failure, unspecified; R16.1 Splenomegaly, not elsewhere classified; Z68.42 Body mass index [BMI] 45.0-49.9, adult; N18.3 Chronic kidney disease, stage 3 (moderate); K75.81 Nonalcoholic steatohepatitis (NASH); E66.01 Morbid (severe) obesity due to excess calories; K21.9 Gastro-esophageal reflux disease without esophagitis; G25.81 Restless legs syndrome; J45.909 Unspecified asthma, uncomplicated; G43.909 Migraine, unspecified, not intractable, without status migrainosus; M19.90 Unspecified osteoarthritis, unspecified site; F32.9 Major depressive disorder, single episode, unspecified; I12.9 Hypertensive chronic kidney disease with stage 1 through stage 4 chronic kidney disease, or unspecified chronic kidney disease; Z79.899 Other long term (current) drug therapy; Z88.8 Allergy status to other drugs, medicaments and biological substances; Z79.82 Long term (current) use of aspirin; Z79.4 Long term (current) use of insulin; K64.8 Other hemorrhoids

== ENCOUNTER → 2018-02-26 | Outpatient (REF) | payer OTHER ==
[2018-02-26 12:03] LABS: ANION GAP 7 MEQ/L (8-16); BLOOD UREA NITROGEN 30 MG/DL (7-18); CALCIUM LEVEL 9.1 MG/DL (8.5-10.1); CARBON DIOXIDE LEVEL 30 MEQ/L (21-32); CHLORIDE LEVEL 105 MEQ/L (98-107); CREATININE FOR GFR 1.47 MG/DL (0.55-1.30); GLOMERULAR FILTRATION RATE 39.9 (>51); GLUCOSE, FASTING 292 MG/DL (70-100); POTASSIUM SERUM 4.4 MEQ/L (3.5-5.1); SODIUM LEVEL 142 MEQ/L (136-145)
== END ==
LOC: M SFHCLERA 09:21
DX: I50.32 Chronic diastolic (congestive) heart failure (principal)

== ENCOUNTER 2018-03-01 17:57 | Emergency (ER) | payer OTHER ==
[2018-03-01] MEDS: LACTULOSE 20 GM/30 ML SYRUP UD PO (17:38)
[2018-03-01] MEDS: NS 1,000 ML IV (17:49)
[2018-03-01 18:50] LABS: BASO % 0.6 % (0.0-1.0); EOS # 0.2 10^3/uL (0.0-0.50); HEMATOCRIT 32.9 % (36.0-47.0); HEMOGLOBIN 11.2 g/dl (12.0-15.5); IMMATURE GRANULOCYTE % 0.2 % (0-3.0); LYMPH # 1.6 10^3/uL (1.5-4.5); LYMPH % 32.3 % (24.0-44.0); MEAN CORPUSCULAR HEMOGLOBIN 32.3 pg (27.0-33.0); MEAN CORPUSCULAR VOLUME 94.8 fl (80.0-96.0); MONO # 0.3 10^3/uL (0.0-0.8); MONO % 5.8 % (0.0-5.0); NEUTROPHILS # 2.8 10^3/uL (1.8-7.7); NEUTROPHILS % 57.1 % (36.0-66.0); PLATELET COUNT, AUTOMATED 154 10^3/uL (150-450); RED BLOOD COUNT 3.47 10^6/uL (4.00-5.40); RED CELL DISTRIBUTION WIDTH 13.2 % (11.5-14.5)
[2018-03-01 19:02] LABS: KETONE, URINE AUTO RFX NEGATIVE (NEGATIVE); LEUKOCYTE ESTERASE UR AUTO RFX NEGATIVE (NEGATIVE); NITRITE, URINE AUTO RFX NEGATIVE (NEGATIVE); RBC, URINE AUTO RFX 2 /HPF (0-3); SPECIFIC GRAVITY UR AUTO RFX 1.009 (1.002-1.035); SQUAM EPITHELIAL CELL UR AURFX 1 /HPF (0-6); WBC, URINE AUTO RFX 1 /HPF (0-3)
[2018-03-01 19:04] LABS: INR 1.15; PROTHROMBIN TIME 14.9 SECONDS (12.1-14.4)
[2018-03-01 19:15] LABS: AMMONIA 44 uMOL/L (<32)
[2018-03-01 19:16] LABS: ALBUMIN 2.8 GM/DL (3.2-5.2); ALKALINE PHOSPHATASE 89 U/L (45-117); ALT/SGPT 21 U/L (12-78); ANION GAP 8 MEQ/L (8-16); AST/SGOT 25 U/L (7-37); BILIRUBIN,DIRECT 0.2 MG/DL (0.0-0.2); BILIRUBIN,TOTAL 0.6 MG/DL (0.2-1.0); BLOOD UREA NITROGEN 31 MG/DL (7-18); CALCIUM LEVEL 8.5 MG/DL (8.5-10.1); CARBON DIOXIDE LEVEL 26 MEQ/L (21-32); CHLORIDE LEVEL 112 MEQ/L (98-107); CREATININE FOR GFR 1.18 MG/DL (0.55-1.30); GLOMERULAR FILTRATION RATE 51.4 (>51); GLUCOSE, FASTING 180 MG/DL (70-100); LIPASE 481 U/L (73-393); POTASSIUM SERUM 3.7 MEQ/L (3.5-5.1); SODIUM LEVEL 146 MEQ/L (136-145); TOTAL PROTEIN 6.3 GM/DL (6.4-8.2)
[2018-03-01 19:19] LABS: LACTIC ACID SEPSIS PROTOCOL 0.9 MMOL/L (0.4-2.0)
== END 2018-03-01 19:58 | disposition home or self-care (01) ==
LOC: M ED 17:57
DX: E72.20 Disorder of urea cycle metabolism, unspecified (principal); R53.83 Other fatigue; E11.9 Type 2 diabetes mellitus without complications; I10 Essential (primary) hypertension; J44.9 Chronic obstructive pulmonary disease, unspecified; J45.909 Unspecified asthma, uncomplicated; G43.909 Migraine, unspecified, not intractable, without status migrainosus; N18.9 Chronic kidney disease, unspecified; Z72.0 Tobacco use; Z79.82 Long term (current) use of aspirin; Z79.4 Long term (current) use of insulin; Z79.899 Other long term (current) drug therapy; Z88.8 Allergy status to other drugs, medicaments and biological substances
CPT/HCPCS: 74021

== ENCOUNTER → 2018-03-01 | Outpatient (REF) | payer OTHER ==
[2018-03-01 15:23] LABS: ANION GAP 6 MEQ/L (8-16); BLOOD UREA NITROGEN 32 MG/DL (7-18); CALCIUM LEVEL 8.8 MG/DL (8.5-10.1); CARBON DIOXIDE LEVEL 29 MEQ/L (21-32); CHLORIDE LEVEL 110 MEQ/L (98-107); CREATININE FOR GFR 1.39 MG/DL (0.55-1.30); GLOMERULAR FILTRATION RATE 42.6 (>51); GLUCOSE, FASTING 229 MG/DL (70-100); NT-PRO BNP 262 PG/ML (<125); POTASSIUM SERUM 4.7 MEQ/L (3.5-5.1); SODIUM LEVEL 145 MEQ/L (136-145)
[2018-03-01 15:29] LABS: AMMONIA 120 uMOL/L (<32)
== END ==
LOC: M SFHCLERA 13:51
DX: I50.32 Chronic diastolic (congestive) heart failure (principal)

== ENCOUNTER 2018-04-23 20:40 | Inpatient (IN) | payer OTHER ==
[2018-04-23] MEDS: MORPHINE 4 MG/ML 1ML VIAL/SYRINGE (J2270) IV (21:50)
[2018-04-23] MEDS: ONDANSETRON 4MG/2ML VIAL (J2405) IV (21:50)
[2018-04-23 21:55] LABS: BASO % 0.8 % (0.0-1.0); EOS # 0.1 10^3/uL (0.0-0.50); HEMATOCRIT 27.9 % (36.0-47.0); HEMOGLOBIN 9.5 g/dl (12.0-15.5); IMMATURE GRANULOCYTE % 0.5 % (0-3.0); LYMPH # 1.3 10^3/uL (1.5-4.5); LYMPH % 34.4 % (24.0-44.0); MEAN CORPUSCULAR HEMOGLOBIN 30.3 pg (27.0-33.0); MEAN CORPUSCULAR HGB CONC 34.1 g/dl (32.0-36.5); MEAN CORPUSCULAR VOLUME 88.9 fl (80.0-96.0); MONO # 0.3 10^3/uL (0.0-0.8); MONO % 7.1 % (0.0-5.0); NEUTROPHILS % 54.2 % (36.0-66.0); PLATELET COUNT, AUTOMATED 130 10^3/uL (150-450); RED BLOOD COUNT 3.14 10^6/uL (4.00-5.40); RED CELL DISTRIBUTION WIDTH 13.3 % (11.5-14.5); WHITE BLOOD COUNT 3.7 10^3/uL (4.0-10.0)
[2018-04-23 22:08] LABS: INR 1.05; PROTHROMBIN TIME 13.8 SECONDS (12.1-14.4)
[2018-04-23 22:09] LABS: PARTIAL THROMBOPLASTIN TIME 26.8 SECONDS (25.4-37.6)
[2018-04-23 22:14] LABS: AMMONIA 109 uMOL/L (<32)
[2018-04-23 22:21] LABS: CPK CREATINE PHOSPHOKINASE 101 U/L (26-192)
[2018-04-23 22:27] LABS: ALBUMIN 2.7 GM/DL (3.2-5.2); ALBUMIN/GLOBULIN RATIO 0.82 (1.00-1.93); ALKALINE PHOSPHATASE 131 U/L (45-117); ALT/SGPT 26 U/L (12-78); ANION GAP 13 MEQ/L (8-16); AST/SGOT 23 U/L (7-37); BILIRUBIN,DIRECT 0.1 MG/DL (0.0-0.2); BILIRUBIN,TOTAL 0.3 MG/DL (0.2-1.0); BLOOD UREA NITROGEN 37 MG/DL (7-18); CALCIUM LEVEL 7.9 MG/DL (8.5-10.1); CARBON DIOXIDE LEVEL 21 MEQ/L (21-32); CHLORIDE LEVEL 105 MEQ/L (98-107); CREATININE FOR GFR 1.36 MG/DL (0.55-1.30); GLOMERULAR FILTRATION RATE 43.6 (>51); GLUCOSE, FASTING 418 MG/DL (70-100); POTASSIUM SERUM 3.9 MEQ/L (3.5-5.1); SODIUM LEVEL 139 MEQ/L (136-145)
[2018-04-23] MEDS: LACTULOSE 20 GM/30 ML SYRUP UD PO (23:16)
[2018-04-24] MEDS ORDERED: IPRATROPIUM 0.5MG/ALBUTEROL 2.5MG INH SOL UD 3ML (DUONEB)(J7620) INH (00:15)
[2018-04-24] MEDS ORDERED: ALBUTEROL 90 MCG/ACT 8GM HFA INHALER INH (00:15)
[2018-04-24] MEDS ORDERED: FLUTICASONE PROP 0.05% NASAL SPRAY 16 GM (FLONASE) (00:15)
[2018-04-24] MEDS ORDERED: GLUCOSE 4 GM CHEW TABLET PO (00:15)
[2018-04-24] MEDS ORDERED: DEXTROSE 50% 50 ML SYRINGE IV (00:15)
[2018-04-24] MEDS ORDERED: GLUCAGON FOR INJ 1 MG VIAL (J1610) SC (00:15)
[2018-04-24] MEDS ORDERED: ONDANSETRON 4 MG ORAL DISINTEGRATING TAB (Q0162 PER 1MG) PO (00:15)
[2018-04-24 01:45] LABS: BEDSIDE GLUCOSE 355 MG/DL (70-105)
[2018-04-24] MEDS: NS 1,000 ML IV ×2 (01:50→13:41)
[2018-04-24] MEDS: HumaLOG INSULIN (NovoLOG) PER UNIT SC ×5 (01:51→20:47)
[2018-04-24] MEDS: PANTOPRAZOLE 40MG INJ (PROTONIX) (C9113) IV (05:54)
[2018-04-24 06:28] LABS: HEMATOCRIT 27.7 % (36.0-47.0); HEMOGLOBIN 9.5 g/dl (12.0-15.5); MEAN CORPUSCULAR HEMOGLOBIN 30.3 pg (27.0-33.0); MEAN CORPUSCULAR HGB CONC 34.3 g/dl (32.0-36.5); MEAN CORPUSCULAR VOLUME 88.2 fl (80.0-96.0); PLATELET COUNT, AUTOMATED 112 10^3/uL (150-450); RED BLOOD COUNT 3.14 10^6/uL (4.00-5.40); RED CELL DISTRIBUTION WIDTH 13.5 % (11.5-14.5); WHITE BLOOD COUNT 3.2 10^3/uL (4.0-10.0)
[2018-04-24 06:53] LABS: AMMONIA 99 uMOL/L (<32)
[2018-04-24 07:01] LABS: BLOOD UREA NITROGEN 41 MG/DL (7-18); CARBON DIOXIDE LEVEL 24 MEQ/L (21-32); CHLORIDE LEVEL 107 MEQ/L (98-107); CREATININE FOR GFR 1.23 MG/DL (0.55-1.30); GLUCOSE, FASTING 308 MG/DL (70-100); POTASSIUM SERUM 3.9 MEQ/L (3.5-5.1); SODIUM LEVEL 140 MEQ/L (136-145)
[2018-04-24 07:02] LABS: ALBUMIN 2.5 GM/DL (3.2-5.2); ALBUMIN/GLOBULIN RATIO 0.78 (1.00-1.93); ALKALINE PHOSPHATASE 126 U/L (45-117); ALT/SGPT 23 U/L (12-78); ANION GAP 9 MEQ/L (8-16); AST/SGOT 22 U/L (7-37); BILIRUBIN,TOTAL 0.4 MG/DL (0.2-1.0); CALCIUM LEVEL 7.9 MG/DL (8.5-10.1); TOTAL PROTEIN 5.7 GM/DL (6.4-8.2)
[2018-04-24 07:47] LABS: RETIC HEMOGLOBIN EQUIVALENT 30.2 pg (24-36); RETICULOCYTE # 63.5 10^9/L (17-77); RETICULOCYTE % 2.1 % (0.5-1.5)
[2018-04-24 07:48] LABS: BEDSIDE GLUCOSE 354 MG/DL (70-105)
[2018-04-24 07:50] LABS: FERRITIN 17 NG/ML (8-252); IRON (FE) 47 UG/DL (50-170); PERCENT SATURATION 14.1 % (13.2-45.0); TOTAL IRON BINDING CAPACITY 333 UG/DL (250-450)
[2018-04-24] MEDS: LACTULOSE 20 GM/30 ML SYRUP UD PO ×4 (09:14→21:00)
[2018-04-24] MEDS: ASPIRIN 81 MG ENTERIC TAB PO (09:14)
[2018-04-24] MEDS: DICYCLOMINE 10 MG CAP PO ×4 (09:14→20:43)
[2018-04-24] MEDS: POTASSIUM CHLORIDE 10 MEQ SR TABLET PO (09:15)
[2018-04-24] MEDS: PREGABALIN 75 MG CAP(LYRICA) PO ×2 (09:15→20:45)
[2018-04-24] MEDS: LOSARTAN 50 MG TAB PO (09:16)
[2018-04-24] MEDS: SENOKOT S TAB PO ×2 (09:17→21:00)
[2018-04-24] MEDS: DOCUSATE SODIUM 100 MG CAP PO ×2 (09:17→21:00)
[2018-04-24] MEDS: CARVedilol 12.5 MG TAB PO ×2 (09:17→20:46)
[2018-04-24] MEDS: SPIRONOLACTONE 50 MG TAB PO (09:17)
[2018-04-24] MEDS: LEVEMIR (INSULIN DETEMIR) 1 UNITS/0.01ML SC ×2 (09:29→20:46)
[2018-04-24 09:30] LABS: BEDSIDE GLUCOSE 392 MG/DL (70-105)
[2018-04-24] MEDS: rifAXIMin 550 MG TAB (XIFAXAN) PO ×2 (10:09→20:43)
[2018-04-24] MEDS: rOPINIRole 2MG TAB PO ×2 (10:10→20:45)
[2018-04-24] MEDS: BUMETANIDE 1 MG TAB PO ×2 (10:10→20:44)
[2018-04-24 11:45] LABS: BEDSIDE GLUCOSE 401 MG/DL (70-105)
[2018-04-24] MEDS: DICLOFENAC EPOLAMINE 1.3 % PATCH TOP (20:43)
[2018-04-24] MEDS: NYSTATIN 100,000 UNITS/GM TOPICAL PWD 15 GM TOP (20:43)
[2018-04-24] MEDS: MONTELUKAST 10 MG TAB PO (20:44)
[2018-04-24] MEDS: MAGNESIUM OXIDE 400 MG TAB (MAG-OX) PO (20:45)
[2018-04-25] MEDS: PANTOPRAZOLE 40MG INJ (PROTONIX) (C9113) IV (05:58)
[2018-04-25 06:43] LABS: HEMATOCRIT 28.8 % (36.0-47.0); HEMOGLOBIN 9.7 g/dl (12.0-15.5); MEAN CORPUSCULAR HEMOGLOBIN 29.8 pg (27.0-33.0); MEAN CORPUSCULAR HGB CONC 33.7 g/dl (32.0-36.5); MEAN CORPUSCULAR VOLUME 88.6 fl (80.0-96.0); PLATELET COUNT, AUTOMATED 126 10^3/uL (150-450); RED BLOOD COUNT 3.25 10^6/uL (4.00-5.40); RED CELL DISTRIBUTION WIDTH 13.3 % (11.5-14.5); WHITE BLOOD COUNT 6.1 10^3/uL (4.0-10.0)
[2018-04-25 07:02] LABS: AMMONIA 66 uMOL/L (<32)
[2018-04-25 07:17] LABS: ALBUMIN 2.6 GM/DL (3.2-5.2); ALBUMIN/GLOBULIN RATIO 0.76 (1.00-1.93); ALKALINE PHOSPHATASE 130 U/L (45-117); ALT/SGPT 25 U/L (12-78); ANION GAP 6 MEQ/L (8-16); AST/SGOT 26 U/L (7-37); BILIRUBIN,TOTAL 0.5 MG/DL (0.2-1.0); BLOOD UREA NITROGEN 36 MG/DL (7-18); CALCIUM LEVEL 8.3 MG/DL (8.5-10.1); CARBON DIOXIDE LEVEL 27 MEQ/L (21-32); CHLORIDE LEVEL 112 MEQ/L (98-107); CREATININE FOR GFR 1.08 MG/DL (0.55-1.30); GLOMERULAR FILTRATION RATE 56.9 (>51); GLUCOSE, FASTING 169 MG/DL (70-100); POTASSIUM SERUM 4.4 MEQ/L (3.5-5.1); SODIUM LEVEL 145 MEQ/L (136-145)
[2018-04-25] MEDS: rOPINIRole 2MG TAB PO (07:57)
[2018-04-25] MEDS: BUMETANIDE 1 MG TAB PO (07:57)
[2018-04-25] MEDS: LACTULOSE 20 GM/30 ML SYRUP UD PO ×2 (07:57→13:33)
[2018-04-25] MEDS: CARVedilol 12.5 MG TAB PO (07:58)
[2018-04-25] MEDS: DICYCLOMINE 10 MG CAP PO ×2 (07:58→13:30)
[2018-04-25] MEDS: PREGABALIN 75 MG CAP(LYRICA) PO (07:58)
[2018-04-25] MEDS: rifAXIMin 550 MG TAB (XIFAXAN) PO (07:58)
[2018-04-25] MEDS: LOSARTAN 50 MG TAB PO (07:59)
[2018-04-25] MEDS: ASPIRIN 81 MG ENTERIC TAB PO (07:59)
[2018-04-25] MEDS: SPIRONOLACTONE 50 MG TAB PO (07:59)
[2018-04-25] MEDS: POTASSIUM CHLORIDE 10 MEQ SR TABLET PO (07:59)
[2018-04-25] MEDS: oxyCODONE 5MG TAB PO ×2 (08:00→13:31)
[2018-04-25] MEDS: LEVEMIR (INSULIN DETEMIR) 1 UNITS/0.01ML SC (08:01)
[2018-04-25] MEDS: HumaLOG INSULIN (NovoLOG) PER UNIT SC ×2 (08:01→13:33)
[2018-04-25] MEDS: DOCUSATE SODIUM 100 MG CAP PO (08:03)
[2018-04-25] MEDS: SENOKOT S TAB PO (08:03)
[2018-04-25] MEDS: DICLOFENAC EPOLAMINE 1.3 % PATCH TOP (08:03)
[2018-04-25] MEDS: NYSTATIN 100,000 UNITS/GM TOPICAL PWD 15 GM TOP (08:04)
[2018-04-25] MEDS: MORPHINE 4 MG/ML 1ML VIAL/SYRINGE (J2270) IV (10:18)
[2018-04-25 17:40] LABS: BEDSIDE GLUCOSE 358 MG/DL (70-105)
[2018-04-25 17:40] LABS: BEDSIDE GLUCOSE 381 MG/DL (70-105)
[2018-04-25 17:40] LABS: BEDSIDE GLUCOSE 177 MG/DL (70-105)
[2018-04-28] MEDS ORDERED: VITAMIN D 50,000 UNITS CAPSULE (ERGOCALCIFEROL 1.25MG) PO (09:00)
== END 2018-04-25 16:46 | disposition home or self-care (01) | DRG 351 ==
LOC: M ED INP 23:43 → M ED 20:40 → M MS5PR 04-24 12:10
DX: M17.12 Unilateral primary osteoarthritis, left knee (principal); E11.51 Type 2 diabetes mellitus with diabetic peripheral angiopathy without gangrene; D69.6 Thrombocytopenia, unspecified; E72.20 Disorder of urea cycle metabolism, unspecified; I13.0 Hypertensive heart and chronic kidney disease with heart failure and stage 1 through stage 4 chronic kidney disease, or unspecified chronic kidney disease; K74.69 Other cirrhosis of liver; I50.32 Chronic diastolic (congestive) heart failure; N18.3 Chronic kidney disease, stage 3 (moderate); K75.81 Nonalcoholic steatohepatitis (NASH); E66.01 Morbid (severe) obesity due to excess calories; E55.9 Vitamin D deficiency, unspecified; E78.5 Hyperlipidemia, unspecified; D64.9 Anemia, unspecified; G43.909 Migraine, unspecified, not intractable, without status migrainosus; G25.81 Restless legs syndrome; K59.00 Constipation, unspecified; K21.9 Gastro-esophageal reflux disease without esophagitis; Z79.4 Long term (current) use of insulin; F17.210 Nicotine dependence, cigarettes, uncomplicated; Z88.8 Allergy status to other drugs, medicaments and biological substances; Z79.82 Long term (current) use of aspirin; Z79.899 Other long term (current) drug therapy; E86.0 Dehydration

== ENCOUNTER 2018-04-27 16:30 | Emergency (ER) | payer OTHER ==
[2018-04-27 17:31] LABS: BASO % 0.4 % (0.0-1.0); EOS # 0.2 10^3/uL (0.0-0.50); EOS % 3.2 % (0.0-3.0); HEMATOCRIT 29.2 % (36.0-47.0); IMMATURE GRANULOCYTE % 0.2 % (0-3.0); LYMPH % 20.2 % (24.0-44.0); MEAN CORPUSCULAR HEMOGLOBIN 30.3 pg (27.0-33.0); MEAN CORPUSCULAR HGB CONC 34.2 g/dl (32.0-36.5); MEAN CORPUSCULAR VOLUME 88.5 fl (80.0-96.0); MONO # 0.3 10^3/uL (0.0-0.8); MONO % 6.2 % (0.0-5.0); NEUTROPHILS # 3.3 10^3/uL (1.8-7.7); NEUTROPHILS % 69.8 % (36.0-66.0); PLATELET COUNT, AUTOMATED 127 10^3/uL (150-450); RED CELL DISTRIBUTION WIDTH 13.4 % (11.5-14.5); WHITE BLOOD COUNT 4.7 10^3/uL (4.0-10.0)
[2018-04-27 17:43] LABS: INR 1.06; PROTHROMBIN TIME 13.9 SECONDS (12.1-14.4)
[2018-04-27 18:29] LABS: AMMONIA 45 uMOL/L (<32)
[2018-04-27 18:32] LABS: GLUCOSE, FASTING 490 MG/DL (70-100)
[2018-04-27 18:33] LABS: BLOOD UREA NITROGEN 30 MG/DL (7-18)
[2018-04-27 18:34] LABS: ALT/SGPT 32 U/L (12-78); ANION GAP 6 MEQ/L (8-16); AST/SGOT 33 U/L (7-37); CALCIUM LEVEL 8.7 MG/DL (8.5-10.1); CARBON DIOXIDE LEVEL 23 MEQ/L (21-32); CHLORIDE LEVEL 109 MEQ/L (98-107); CREATININE FOR GFR 1.17 MG/DL (0.55-1.30); GLOMERULAR FILTRATION RATE 51.9 (>51); POTASSIUM SERUM 4.2 MEQ/L (3.5-5.1); SODIUM LEVEL 138 MEQ/L (136-145)
[2018-04-27 18:35] LABS: ALKALINE PHOSPHATASE 148 U/L (45-117); BILIRUBIN,TOTAL 0.6 MG/DL (0.2-1.0)
[2018-04-27 18:36] LABS: ALBUMIN 2.7 GM/DL (3.2-5.2); ALBUMIN/GLOBULIN RATIO 0.73 (1.00-1.93); BILIRUBIN,DIRECT 0.2 MG/DL (0.0-0.2); LIPASE 474 U/L (73-393); TOTAL PROTEIN 6.4 GM/DL (6.4-8.2)
[2018-04-27] MEDS ORDERED: ISOVUE-370 76% 100ML VIAL (Q9967) As Ordered (18:37)
[2018-04-27] MEDS: NS 500 ML IV (19:58)
[2018-04-27] MEDS: HYDROMORPHONE HCL 0.5 MG/ 0.5 ML SYRINGE (J1170 PER 1) IV (19:59)
[2018-04-27] MEDS: HumaLOG INSULIN (NovoLOG) PER UNIT SC (20:13)
[2018-04-27 20:14] LABS: BEDSIDE GLUCOSE 376 MG/DL (70-105)
[2018-04-27 21:54] LABS: BEDSIDE GLUCOSE 341 MG/DL (70-105)
[2018-04-27] MEDS: oxyCODONE 5MG TAB PO (22:15)
[2018-04-27] MEDS: OXYCODONE/APAP 5MG/325MG(BULK FOR ED) 1 TABLET PO (22:30)
== END 2018-04-27 22:34 | disposition home or self-care (01) ==
LOC: M ED 16:30
DX: R10.9 Unspecified abdominal pain (principal); E11.40 Type 2 diabetes mellitus with diabetic neuropathy, unspecified; R94.31 Abnormal electrocardiogram [ECG] [EKG]; I50.9 Heart failure, unspecified; N18.3 Chronic kidney disease, stage 3 (moderate); E78.5 Hyperlipidemia, unspecified; E66.9 Obesity, unspecified; K75.81 Nonalcoholic steatohepatitis (NASH); Z90.49 Acquired absence of other specified parts of digestive tract; Z88.8 Allergy status to other drugs, medicaments and biological substances; Z79.899 Other long term (current) drug therapy; Z79.4 Long term (current) use of insulin; Z79.82 Long term (current) use of aspirin
CPT/HCPCS: Q9967

== ENCOUNTER → 2018-05-05 | Outpatient (REF) | payer OTHER ==
[2018-05-05 18:10] LABS: ESTIMATED AVERAGE GLUCOSE 335 MG/DL (60-110); HEMOGLOBIN A1c 13.3 %
== END ==
LOC: M SFHCLERA 11:57
DX: E11.319 Type 2 diabetes mellitus with unspecified diabetic retinopathy without macular edema (principal)
CPT/HCPCS: 83036

== ENCOUNTER → 2018-06-02 | Outpatient (REF) | payer OTHER ==
[2018-06-02 16:30] LABS: ANION GAP 9 MEQ/L (8-16); BLOOD UREA NITROGEN 18 MG/DL (7-18); CALCIUM LEVEL 8.2 MG/DL (8.5-10.1); CARBON DIOXIDE LEVEL 25 MEQ/L (21-32); CHLORIDE LEVEL 102 MEQ/L (98-107); GLOMERULAR FILTRATION RATE 42.2 (>51); GLUCOSE, FASTING 359 MG/DL (70-100); POTASSIUM SERUM 3.9 MEQ/L (3.5-5.1); SODIUM LEVEL 136 MEQ/L (136-145)
[2018-06-02 16:45] LABS: TOTAL 25(OH) VITAMIN D 24.4 NG/ML (30.0-100.0)
== END ==
LOC: M SFHCLERA 12:33
DX: E55.9 Vitamin D deficiency, unspecified (principal); I50.32 Chronic diastolic (congestive) heart failure
CPT/HCPCS: 82306

== ENCOUNTER 2018-06-15 10:44 | Inpatient (IN) | payer OTHER ==
[2018-06-15 11:17] LABS: BASO % 0.3 % (0.0-1.0); EOS # 0.1 10^3/uL (0.0-0.50); EOS % 2.4 % (0.0-3.0); HEMATOCRIT 33.1 % (36.0-47.0); HEMOGLOBIN 11.2 g/dl (12.0-15.5); IMMATURE GRANULOCYTE % 0.7 % (0-3.0); LYMPH % 16.5 % (24.0-44.0); MEAN CORPUSCULAR HEMOGLOBIN 28.8 pg (27.0-33.0); MEAN CORPUSCULAR HGB CONC 33.8 g/dl (32.0-36.5); MEAN CORPUSCULAR VOLUME 85.1 fl (80.0-96.0); MONO # 0.3 10^3/uL (0.0-0.8); MONO % 4.5 % (0.0-5.0); NEUTROPHILS # 4.4 10^3/uL (1.8-7.7); NEUTROPHILS % 75.6 % (36.0-66.0); PLATELET COUNT, AUTOMATED 127 10^3/uL (150-450); RED BLOOD COUNT 3.89 10^6/uL (4.00-5.40); RED CELL DISTRIBUTION WIDTH 14.2 % (11.5-14.5); WHITE BLOOD COUNT 5.8 10^3/uL (4.0-10.0)
[2018-06-15] MEDS: ONDANSETRON 4MG/2ML VIAL (J2405) IV (11:43)
[2018-06-15] MEDS: MORPHINE 4 MG/ML 1ML VIAL/SYRINGE (J2270) IV ×3 (11:43→21:35)
[2018-06-15] MEDS: NS 1,000 ML IV ×2 (11:44→17:23)
[2018-06-15 11:49] LABS: ALBUMIN 2.9 GM/DL (3.2-5.2); ALBUMIN/GLOBULIN RATIO 0.71 (1.00-1.93); ALKALINE PHOSPHATASE 133 U/L (45-117); ALT/SGPT 25 U/L (12-78); ANION GAP 8 MEQ/L (8-16); AST/SGOT 20 U/L (7-37); BILIRUBIN,DIRECT 0.2 MG/DL (0.0-0.2); BILIRUBIN,TOTAL 0.5 MG/DL (0.2-1.0); BLOOD UREA NITROGEN 19 MG/DL (7-18); CALCIUM LEVEL 9.2 MG/DL (8.5-10.1); CARBON DIOXIDE LEVEL 24 MEQ/L (21-32); CHLORIDE LEVEL 100 MEQ/L (98-107); CREATININE FOR GFR 1.12 MG/DL (0.55-1.30); GLOMERULAR FILTRATION RATE 54.6 (>51); LIPASE 368 U/L (73-393); POTASSIUM SERUM 3.9 MEQ/L (3.5-5.1); SODIUM LEVEL 132 MEQ/L (136-145)
[2018-06-15 11:54] LABS: CPK CREATINE PHOSPHOKINASE 81 U/L (26-192); GLUCOSE, FASTING 545 MG/DL (70-100); MB/CK RELATIVE INDEX 1.85 (< OR =4); TROPONIN I < 0.02 NG/ML (< 0.10)
[2018-06-15] MEDS ORDERED: ISOVUE-370 76% 100ML VIAL (Q9967) As Ordered (12:07)
[2018-06-15 13:09] LABS: INR 1.03; PROTHROMBIN TIME 13.6 SECONDS (12.1-14.4)
[2018-06-15] MEDS: HumuLIN R (REGULAR) INSULIN (NovoLIN R) **100U/ML** PER UNIT IV (13:18)
[2018-06-15 13:22] LABS: AMMONIA 51 uMOL/L (<32)
[2018-06-15 13:55] LABS: AMORPHOUS SEDIMENT RFX LARGE (NEGATIVE); KETONE, URINE AUTO RFX NEGATIVE (NEGATIVE); LEUKOCYTE ESTERASE UR AUTO RFX NEGATIVE (NEGATIVE); MUCUS, URINE RFX SMALL (NEGATIVE); NITRITE, URINE AUTO RFX NEGATIVE (NEGATIVE); RBC, URINE AUTO RFX 8 /HPF (0-3); SPECIFIC GRAVITY UR AUTO RFX 1.013 (1.002-1.035); SQUAM EPITHELIAL CELL UR AURFX 0 /HPF (0-6); WBC, URINE AUTO RFX 3 /HPF (0-3)
[2018-06-15] MEDS ORDERED: NS 1,000 ML IV (14:45)
[2018-06-15] MEDS ORDERED: MORPHINE 4 MG/ML 1ML VIAL/SYRINGE (J2270) IV (15:15)
[2018-06-15] MEDS ORDERED: ONDANSETRON 4MG/2ML VIAL (J2405) IV (15:15)
[2018-06-15] MEDS: CIPROFLOXACIN 400 MG in APPROPRIATE DILUENT 1 EA IV (15:21)
[2018-06-15 15:41] LABS: C REACTIVE PROTEIN QUANTITATIV 5.96 MG/DL (0.00-0.30)
[2018-06-15 15:49] LABS: LACTIC ACID SEPSIS PROTOCOL 1.1 MMOL/L (0.4-2.0)
[2018-06-15 16:19] LABS: BEDSIDE GLUCOSE 350 MG/DL (70-105)
[2018-06-15] MEDS ORDERED: FLUTICASONE PROP 0.05% NASAL SPRAY 16 GM (FLONASE) (16:45)
[2018-06-15] MEDS ORDERED: GLUCOSE 4 GM CHEW TABLET PO (16:45)
[2018-06-15] MEDS ORDERED: ONDANSETRON 4 MG ORAL DISINTEGRATING TAB (Q0162 PER 1MG) PO (16:45)
[2018-06-15] MEDS ORDERED: MECLIZINE 25 MG TABLET PO (16:45)
[2018-06-15] MEDS ORDERED: GLUCAGON FOR INJ 1 MG VIAL (J1610) SC (16:45)
[2018-06-15] MEDS ORDERED: DEXTROSE 50% 50 ML SYRINGE IV (16:45)
[2018-06-15] MEDS: LEVEMIR (INSULIN DETEMIR) 1 UNITS/0.01ML SC (17:22)
[2018-06-15] MEDS: metroNIDAZOLE 500 MG in APPROPRIATE DILUENT 1 EA IV ×2 (17:22→23:49)
[2018-06-15 17:38] LABS: BEDSIDE GLUCOSE 307 MG/DL (70-105)
[2018-06-15] MEDS: HumaLOG INSULIN (NovoLOG) PER UNIT SC ×2 (17:51→21:00)
[2018-06-15] MEDS: DICYCLOMINE 10 MG CAP PO ×2 (17:51→21:15)
[2018-06-15] MEDS: PERCOCET 5MG/325MG TAB PO (17:53)
[2018-06-15 20:06] LABS: BEDSIDE GLUCOSE 239 MG/DL (70-105)
[2018-06-15] MEDS ORDERED: rOPINIRole 1MG TAB PO (21:00)
[2018-06-15] MEDS: MONTELUKAST 10 MG TAB PO (21:15)
[2018-06-15] MEDS: PREGABALIN 75 MG CAP(LYRICA) PO (21:15)
[2018-06-15] MEDS: rOPINIRole 2MG TAB PO (21:16)
[2018-06-15] MEDS: rifAXIMin 550 MG TAB (XIFAXAN) PO (21:16)
[2018-06-15] MEDS: CARVedilol 12.5 MG TAB PO (21:16)
[2018-06-15] MEDS: DOCUSATE SODIUM 100 MG CAP PO (21:16)
[2018-06-15] MEDS: MAGNESIUM OXIDE 400 MG TAB (MAG-OX) PO (21:17)
[2018-06-16] MEDS: CIPROFLOXACIN 400 MG in APPROPRIATE DILUENT 1 EA IV ×2 (02:17→15:13)
[2018-06-16 03:39] LABS: BEDSIDE GLUCOSE 97 MG/DL (70-105)
[2018-06-16 04:05] LABS: BEDSIDE GLUCOSE 106 MG/DL (70-105)
[2018-06-16] MEDS: NS 1,000 ML IV (05:50)
[2018-06-16 05:54] LABS: BASO % 0.2 % (0.0-1.0); EOS # 0.2 10^3/uL (0.0-0.50); EOS % 4.3 % (0.0-3.0); HEMATOCRIT 28.8 % (36.0-47.0); HEMOGLOBIN 9.5 g/dl (12.0-15.5); IMMATURE GRANULOCYTE % 0.4 % (0-3.0); LYMPH # 1.1 10^3/uL (1.5-4.5); LYMPH % 23.3 % (24.0-44.0); MEAN CORPUSCULAR HEMOGLOBIN 28.7 pg (27.0-33.0); MONO # 0.4 10^3/uL (0.0-0.8); MONO % 7.2 % (0.0-5.0); NEUTROPHILS # 3.1 10^3/uL (1.8-7.7); NEUTROPHILS % 64.6 % (36.0-66.0); PLATELET COUNT, AUTOMATED 126 10^3/uL (150-450); RED BLOOD COUNT 3.31 10^6/uL (4.00-5.40); RED CELL DISTRIBUTION WIDTH 14.3 % (11.5-14.5); WHITE BLOOD COUNT 4.9 10^3/uL (4.0-10.0)
[2018-06-16 06:15] LABS: ALBUMIN 2.4 GM/DL (3.2-5.2); ALBUMIN/GLOBULIN RATIO 0.71 (1.00-1.93); ALKALINE PHOSPHATASE 109 U/L (45-117); ALT/SGPT 22 U/L (12-78); ANION GAP 6 MEQ/L (8-16); AST/SGOT 27 U/L (7-37); BILIRUBIN,TOTAL 0.5 MG/DL (0.2-1.0); BLOOD UREA NITROGEN 20 MG/DL (7-18); CALCIUM LEVEL 8.1 MG/DL (8.5-10.1); CARBON DIOXIDE LEVEL 27 MEQ/L (21-32); CHLORIDE LEVEL 104 MEQ/L (98-107); CREATININE FOR GFR 1.08 MG/DL (0.55-1.30); GLOMERULAR FILTRATION RATE 56.9 (>51); GLUCOSE, FASTING 138 MG/DL (70-100); MAGNESIUM LEVEL 1.8 MG/DL (1.8-2.4); SODIUM LEVEL 137 MEQ/L (136-145); TOTAL PROTEIN 5.8 GM/DL (6.4-8.2)
[2018-06-16] MEDS: metroNIDAZOLE 500 MG in APPROPRIATE DILUENT 1 EA IV ×3 (08:53→23:47)
[2018-06-16] MEDS: HumaLOG INSULIN (NovoLOG) PER UNIT SC ×4 (08:54→20:42)
[2018-06-16] MEDS: DICYCLOMINE 10 MG CAP PO ×4 (08:55→20:40)
[2018-06-16] MEDS: OMEPRAZOLE 20 MG CAP PO (08:55)
[2018-06-16] MEDS: rOPINIRole 2MG TAB PO ×2 (08:56→20:41)
[2018-06-16] MEDS: CARVedilol 12.5 MG TAB PO ×2 (08:56→20:41)
[2018-06-16] MEDS: ASPIRIN 81 MG ENTERIC TAB PO (08:57)
[2018-06-16] MEDS: DOCUSATE SODIUM 100 MG CAP PO ×2 (08:57→20:40)
[2018-06-16] MEDS: rifAXIMin 550 MG TAB (XIFAXAN) PO ×2 (08:57→20:42)
[2018-06-16] MEDS: PREGABALIN 75 MG CAP(LYRICA) PO ×2 (08:57→20:42)
[2018-06-16] MEDS: LEVEMIR (INSULIN DETEMIR) 1 UNITS/0.01ML SC ×2 (09:00→20:44)
[2018-06-16] MEDS: MORPHINE 4 MG/ML 1ML VIAL/SYRINGE (J2270) IV (09:02)
[2018-06-16 11:53] LABS: BEDSIDE GLUCOSE 107 MG/DL (70-105)
[2018-06-16] MEDS ORDERED: SLF 3 ML SYR IV (12:00)
[2018-06-16 14:34] LABS: BEDSIDE GLUCOSE 61 MG/DL (70-105)
[2018-06-16] MEDS: SLF 3 ML SYR IV ×2 (15:13→20:40)
[2018-06-16 17:03] LABS: BEDSIDE GLUCOSE 220 MG/DL (70-105)
[2018-06-16 20:23] LABS: BEDSIDE GLUCOSE 212 MG/DL (70-105)
[2018-06-16] MEDS: MONTELUKAST 10 MG TAB PO (20:40)
[2018-06-16] MEDS: PERCOCET 5MG/325MG TAB PO (20:42)
[2018-06-16] MEDS: MAGNESIUM OXIDE 400 MG TAB (MAG-OX) PO (20:46)
[2018-06-17] MEDS: CIPROFLOXACIN 400 MG in APPROPRIATE DILUENT 1 EA IV (02:05)
[2018-06-17] MEDS: SLF 3 ML SYR IV (05:05)
[2018-06-17 05:59] LABS: BASO % 0.3 % (0.0-1.0); EOS # 0.2 10^3/uL (0.0-0.50); EOS % 5.7 % (0.0-3.0); HEMATOCRIT 28.1 % (36.0-47.0); HEMOGLOBIN 9.4 g/dl (12.0-15.5); IMMATURE GRANULOCYTE % 0.6 % (0-3.0); LYMPH # 1.3 10^3/uL (1.5-4.5); LYMPH % 38.6 % (24.0-44.0); MEAN CORPUSCULAR HEMOGLOBIN 28.6 pg (27.0-33.0); MEAN CORPUSCULAR HGB CONC 33.5 g/dl (32.0-36.5); MEAN CORPUSCULAR VOLUME 85.4 fl (80.0-96.0); MONO # 0.2 10^3/uL (0.0-0.8); MONO % 6.9 % (0.0-5.0); NEUTROPHILS # 1.6 10^3/uL (1.8-7.7); NEUTROPHILS % 47.9 % (36.0-66.0); PLATELET COUNT, AUTOMATED 116 10^3/uL (150-450); RED BLOOD COUNT 3.29 10^6/uL (4.00-5.40); WHITE BLOOD COUNT 3.3 10^3/uL (4.0-10.0)
[2018-06-17 06:33] LABS: ALBUMIN 2.4 GM/DL (3.2-5.2); ALBUMIN/GLOBULIN RATIO 0.71 (1.00-1.93); ALKALINE PHOSPHATASE 105 U/L (45-117); ALT/SGPT 20 U/L (12-78); ANION GAP 6 MEQ/L (8-16); AST/SGOT 29 U/L (7-37); BILIRUBIN,TOTAL 0.5 MG/DL (0.2-1.0); BLOOD UREA NITROGEN 18 MG/DL (7-18); CALCIUM LEVEL 7.8 MG/DL (8.5-10.1); CARBON DIOXIDE LEVEL 26 MEQ/L (21-32); CHLORIDE LEVEL 100 MEQ/L (98-107); CREATININE FOR GFR 0.94 MG/DL (0.55-1.30); GLOMERULAR FILTRATION RATE > 60.0 (>51); GLUCOSE, FASTING 115 MG/DL (70-100); MAGNESIUM LEVEL 1.9 MG/DL (1.8-2.4); POTASSIUM SERUM 3.3 MEQ/L (3.5-5.1); SODIUM LEVEL 132 MEQ/L (136-145); TOTAL PROTEIN 5.8 GM/DL (6.4-8.2)
[2018-06-17] MEDS: POTASSIUM CHLORIDE 10 MEQ SR TABLET PO (06:55)
[2018-06-17] MEDS: DICYCLOMINE 10 MG CAP PO ×2 (08:41→12:20)
[2018-06-17] MEDS: metroNIDAZOLE 500 MG in APPROPRIATE DILUENT 1 EA IV (08:41)
[2018-06-17] MEDS: HumaLOG INSULIN (NovoLOG) PER UNIT SC ×2 (08:41→12:20)
[2018-06-17] MEDS: LEVEMIR (INSULIN DETEMIR) 1 UNITS/0.01ML SC (08:41)
[2018-06-17] MEDS: PREGABALIN 75 MG CAP(LYRICA) PO (08:42)
[2018-06-17] MEDS: rOPINIRole 2MG TAB PO (08:42)
[2018-06-17] MEDS: ASPIRIN 81 MG ENTERIC TAB PO (08:42)
[2018-06-17] MEDS: rifAXIMin 550 MG TAB (XIFAXAN) PO (08:42)
[2018-06-17] MEDS: OMEPRAZOLE 20 MG CAP PO (08:43)
[2018-06-17] MEDS: DOCUSATE SODIUM 100 MG CAP PO (08:43)
[2018-06-17] MEDS: CARVedilol 12.5 MG TAB PO (08:43)
[2018-06-17 11:58] LABS: BEDSIDE GLUCOSE 139 MG/DL (70-105)
== END 2018-06-17 12:55 | disposition home or self-care (01) | DRG 246 ==
LOC: M ED 10:44 → M ED INP 14:39 → M PCU 16:44
DX: K55.039 Acute (reversible) ischemia of large intestine, extent unspecified (principal); E11.22 Type 2 diabetes mellitus with diabetic chronic kidney disease; K76.6 Portal hypertension; I13.0 Hypertensive heart and chronic kidney disease with heart failure and stage 1 through stage 4 chronic kidney disease, or unspecified chronic kidney disease; D69.6 Thrombocytopenia, unspecified; I50.32 Chronic diastolic (congestive) heart failure; N18.3 Chronic kidney disease, stage 3 (moderate); K74.60 Unspecified cirrhosis of liver; K75.81 Nonalcoholic steatohepatitis (NASH); I27.20 Pulmonary hypertension, unspecified; E11.42 Type 2 diabetes mellitus with diabetic polyneuropathy; E66.01 Morbid (severe) obesity due to excess calories; Z68.42 Body mass index [BMI] 45.0-49.9, adult; R16.1 Splenomegaly, not elsewhere classified; J44.9 Chronic obstructive pulmonary disease, unspecified; F32.9 Major depressive disorder, single episode, unspecified; K21.9 Gastro-esophageal reflux disease without esophagitis; I25.10 Atherosclerotic heart disease of native coronary artery without angina pectoris; G43.909 Migraine, unspecified, not intractable, without status migrainosus; G47.33 Obstructive sleep apnea (adult) (pediatric); G89.29 Other chronic pain; J45.909 Unspecified asthma, uncomplicated; Z90.49 Acquired absence of other specified parts of digestive tract; F17.210 Nicotine dependence, cigarettes, uncomplicated; G25.81 Restless legs syndrome; Z79.4 Long term (current) use of insulin; Z79.82 Long term (current) use of aspirin; Z79.899 Other long term (current) drug therapy; Z88.8 Allergy status to other drugs, medicaments and biological substances

== ENCOUNTER 2018-07-09 10:36 | Outpatient (RCR) | payer OTHER ==
[~2018-07-09 10:36] MED LIST changes: -AMLO5TAB2 PO; +AMLO5TAB6 PO; +ASPI81TAEC PO; +AUGM500T34 PO; +BACITAB PO; +BENZ-18 PO; +BRIN1TAB PO; +BUME2TAB3 PO; +CEFD1CAP8 PO; +CIPR1TAB20 PO; +CIPR500T19 PO; -CLON1TAB PO; +CLON1TAB8 PO; +DICL0.1S TOP; +DIFL150T PO; +DOXY-350 PO; +EFFE37.5 PO; -EFFE37.527 PO; +EFFE75CA2 PO; -GABA-282 PO; -GABA-283 PO; +GABA-843 PO; +GABA-845 PO; -GABA600T PO; +GABA600T4 PO; +IPRA0.00 IN; +IPRA0.00 INH; -IPRASOL4 IN; -IPRASOL4 INH; -LASI40TA PO; +LASI40TA9 PO; +LOSA25TA14 PO; -LOSA25TA8 PO; -LOSA50TA20 PO; +LOSA50TA88 PO; +METR-201 PO; +MUCI600T37 PO; +NORC1TAB4 PO; +POTA10TA16 PO; +PROB1TAB PO; +REQU4TAB3 PO; -ROPI4TAB PO; +ROPI4TAB3 PO; -SALI0.6523; +SALI0.6528; +SING10TA32 PO; +SPIR-10 PO; -SPIR25TA2 PO; -SPIR50TA2 PO; +SPIR50TA4 PO; +TIZA2CAP PO; -TIZA2CAP3 PO; +TOPA1TAB PO; +TOPI50TA9 PO; +TRAZ-160 PO; -TRAZ50TA11 PO; +TRUL10IN SC; +VITA200048 PO; +VITA50005 PO; +ZOFR4TAB14 PO; -ZOFR4TAB3 PO
[2018-07-18] MEDS ORDERED: TRAM50TA2 PO (15:31)
== END 2018-08-05 ==
LOC: M PT 10:36
PROVIDERS: ATTEND Physician Assistant
DX: Z47.89 Encounter for other orthopedic aftercare (principal); M19.011 Primary osteoarthritis, right shoulder; M17.0 Bilateral primary osteoarthritis of knee; M75.41 Impingement syndrome of right shoulder

== ENCOUNTER 2018-07-09 12:46 | Emergency (ER) | payer OTHER ==
[~2018-07-09] VITALS: Ht 182.9 cm; Wt 166.8 kg
[2018-07-09] MEDS ORDERED: ALPRAZolam 0.5 MG TAB PO ONE (14:15)
[2018-07-09 15:51] LABS: ALBUMIN 3.4 GM/DL (3.2-5.2); BILIRUBIN,TOTAL 0.5 MG/DL (0.2-1.0); CALCIUM LEVEL 9.1 MG/DL (8.5-10.1); CREATININE FOR GFR 1.13 MG/DL (0.55-1.30); POTASSIUM SERUM 4.9 MEQ/L (3.5-5.1); TOTAL PROTEIN 6.9 GM/DL (6.4-8.2)
[2018-07-09 15:59] VITALS: BP 123/60
== END 2018-07-09 16:38 | disposition home or self-care (01) ==
LOC: M ED 12:46
DX: F41.9 Anxiety disorder, unspecified (principal); E11.9 Type 2 diabetes mellitus without complications; I10 Essential (primary) hypertension; I25.10 Atherosclerotic heart disease of native coronary artery without angina pectoris; K75.9 Inflammatory liver disease, unspecified; F17.210 Nicotine dependence, cigarettes, uncomplicated

== ENCOUNTER → 2018-07-12 | Outpatient (REF) | payer OTHER | LOC: M SFHCLERA 13:00 | PROVIDERS: ATTEND Family Medicine | DX: R25.2 Cramp and spasm (principal) ==

== ENCOUNTER 2018-07-18 09:16 | Emergency (ER) | payer OTHER ==
[~2018-07-18] VITALS: Ht 182.9 cm; Wt 165.9 kg
[2018-07-18] MEDS ORDERED: ONDANSETRON 4MG/2ML VIAL (J2405) IV ONE ×2 (10:00→11:45)
[2018-07-18 10:25] LABS: BASO % 0.6 % (0.0-1.0); EOS # 0.1 10^3/uL (0.0-0.50); EOS % 3.2 % (0.0-3.0); HEMATOCRIT 30.3 % (36.0-47.0); HEMOGLOBIN 9.9 g/dl (12.0-15.5); LYMPH # 1.1 10^3/uL (1.5-4.5); MEAN CORPUSCULAR HGB CONC 32.7 g/dl (32.0-36.5); MEAN CORPUSCULAR VOLUME 82.6 fl (80.0-96.0); MONO # 0.3 10^3/uL (0.0-0.8); MONO % 8.4 % (0.0-5.0); NEUTROPHILS # 1.9 10^3/uL (1.8-7.7); NEUTROPHILS % 55.8 % (36.0-66.0); PLATELET COUNT, AUTOMATED 105 10^3/uL (150-450); RED BLOOD COUNT 3.67 10^6/uL (4.00-5.40); WHITE BLOOD COUNT 3.4 10^3/uL (4.0-10.0)
[2018-07-18] MEDS: MORPHINE 4 MG/ML 1ML VIAL/SYRINGE (J2270) IV PRN ×2 (10:25→13:25)
[2018-07-18 11:06] LABS: OSMOLALITY SERUM 314 MOSM/KG (275-295)
[2018-07-18 11:12] LABS: ALBUMIN 2.6 GM/DL (3.2-5.2); ALT/SGPT 28 U/L (12-78); BILIRUBIN,DIRECT 0.1 MG/DL (0.0-0.2); BILIRUBIN,TOTAL 0.3 MG/DL (0.2-1.0); BLOOD UREA NITROGEN 23 MG/DL (7-18); CALCIUM LEVEL 8.3 MG/DL (8.5-10.1); CARBON DIOXIDE LEVEL 19 MEQ/L (21-32); CHLORIDE LEVEL 108 MEQ/L (98-107); CPK CREATINE PHOSPHOKINASE 120 U/L (26-192); CREATININE FOR GFR 0.87 MG/DL (0.55-1.30); FERRITIN 12 NG/ML (8-252); GLOMERULAR FILTRATION RATE > 60.0 (>51); GLUCOSE, FASTING 316 MG/DL (70-100); IRON (FE) 37 UG/DL (50-170); SODIUM LEVEL 141 MEQ/L (136-145); TOTAL IRON BINDING CAPACITY 370 UG/DL (250-450)
[2018-07-18] MEDS ORDERED: NS 500 ML IV ONE ×2 (11:15→13:15)
[2018-07-18] MEDS ORDERED: LACTULOSE 20 GM/30 ML SYRUP UD PO ONE (11:45)
[2018-07-18 11:56] LABS: VENOUS BASE EXCESS -1.2 (-2.0-2.0); VENOUS HCO3 22.5 MEQ/L (23.0-27.0); VENOUS O2 SATURATION 99.1 % (60.0-80.0); VENOUS PARTIAL PRESSURE O2 153.6 mmHg (30.0-50.0); VENOUS PH 7.438 UNITS (7.330-7.430); VENOUS STANDARD HCO3 23.5 MEQ/L; VENOUS TOTAL CO2 23.5 MEQ/L (24.0-28.0)
[2018-07-18 11:57] LABS: SALICYLATE LEVEL < 1.7 MG/DL (5.0-30.0)
[2018-07-18] MEDS ORDERED: traMADol 50 MG TAB PO ONE (15:30)
[2018-07-18] MEDS ORDERED: PREGABALIN 100 MG CAP (LYRICA) PO ONE (15:30)
[2018-07-18] MEDS ORDERED: TRAM50TA2 PO (15:31)
[2018-07-18 15:56] LABS: BLOOD UREA NITROGEN 20 MG/DL (7-18); CALCIUM LEVEL 8.3 MG/DL (8.5-10.1); CARBON DIOXIDE LEVEL 22 MEQ/L (21-32); CHLORIDE LEVEL 110 MEQ/L (98-107); CREATININE FOR GFR 0.76 MG/DL (0.55-1.30); GLOMERULAR FILTRATION RATE > 60.0 (>51); GLUCOSE, FASTING 209 MG/DL (70-100); POTASSIUM SERUM 4.2 MEQ/L (3.5-5.1); SODIUM LEVEL 142 MEQ/L (136-145)
[2018-07-18 16:38] VITALS: BP 150/90
--- NOTE | 2018-07-18 17:38 | ECGEPIP ---
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
--- NOTE | 2018-07-19 06:16 | REP ---
MRI lumbar spine without contrast: History: Back pain. Leg weakness. Comparison MRI lumbar spine study is from January 16, 2018. Technique: Sagittal and axial T1 and T2-weighted scans are acquired in the usual fashion with and without fat saturation. Sequences include spin echo, turbo spin-echo, and STIR imaging sequences. MRI findings: Lumbar vertebral body heights are preserved. Alignment is normal. There is a levoconvex curvature as before. There is diffuse degenerative disc and osteoarthritic facet disease. There is central disc bulging at the T11-12 level unchanged with minimal thecal sac compression. The tip of the conus medullaris is normal at L1. Mild central disc bulging is seen at T12-L1. At L1-L2, axial and sagittal images demonstrate minimal central disc bulging. No other abnormality. At L2-L3, there is mild diffuse disc bulging. No neural foraminal narrowing is seen. No change from comparison study. At L3-L4, there is central disc bulging subtly effacing the ventral margin of the thecal sac. No neural foraminal narrowing is seen. No central canal stenosis is noted. No change from prior study. At L4-5, there is right posterior disc bulging effacing the thecal sac margin. There is mild right-sided neural foraminal encroachment from disc bulging and osteophyte formation along with facet hypertrophy. This is unchanged from January 16, 2018 prior study. There is facet hypertrophy bilaterally along with some ligamentum flavum hypertrophy. No central canal stenosis. At L5-S1, there is facet hypertrophy and diffuse disc bulging. There is left-sided neural foraminal narrowing at L5-S1 due to facet hypertrophy. This is unchanged from prior study. Impression: Degenerative spondylosis changes, stable and unchanged from January 16, 2018. There is left neural foraminal narrowing at L5-S1 and right neural foraminal narrowing at L4-5 unchanged. Electronically Signed by Robbie Carvalho MD 07/19/2018 08:11 A
[2018-07-19 10:53] LABS: VITAMIN B12 LEVEL 360 PG/ML (247-911)
== END 2018-07-18 17:16 | disposition home or self-care (01) ==
LOC: M ED 09:16
DX: G25.81 Restless legs syndrome (principal); E11.9 Type 2 diabetes mellitus without complications; I11.0 Hypertensive heart disease with heart failure; I50.9 Heart failure, unspecified; K21.9 Gastro-esophageal reflux disease without esophagitis; G62.9 Polyneuropathy, unspecified; I27.20 Pulmonary hypertension, unspecified; F33.9 Major depressive disorder, recurrent, unspecified; F41.9 Anxiety disorder, unspecified; K74.69 Other cirrhosis of liver; K75.81 Nonalcoholic steatohepatitis (NASH); Z79.899 Other long term (current) drug therapy; Z79.82 Long term (current) use of aspirin; Z79.4 Long term (current) use of insulin; Z88.8 Allergy status to other drugs, medicaments and biological substances; Z87.891 Personal history of nicotine dependence
CPT/HCPCS: 72148; 80048; 80076; 82140; 82550; 82607; 82728; 82746; 82803; 83550; 83605; 83735; 83930; 84443; 85025; 93005; 93041; 96374; 96375; 96376; 99285; G0480; J2270; J2405

== ENCOUNTER 2018-09-01 15:05 | Inpatient (IN) | payer OTHER ==
[~2018-09-01] VITALS: Ht 182.9 cm; Wt 171.0 kg
[2018-09-01] MEDS ORDERED: CLINDAMYCIN 600 MG in APPROPRIATE DILUENT 1 EA IV ONE (16:30)
[2018-09-01] MEDS ORDERED: NS 1,000 ML IV ONE (16:30)
[2018-09-01] MEDS ORDERED: ALBUTEROL SULFATE 2.5 MG/0.5 ML INH NEB SOLN NEB ONE (16:30)
--- NOTE | 2018-09-01 17:01 | REP ---
Clinical: Shortness of breath . Comparison: 06/15/2018 . Technique: PA and lateral. Findings: The mediastinum and cardiac silhouette are normal. The lung go are clear and without acute consolidation, effusion, or pneumothorax. The skeletal structures are intact and normal. Impression: 1. No acute cardiopulmonary process. Electronically Signed by Edward Schmidt MD 09/01/2018 04:52 P
--- NOTE | 2018-09-01 17:03 | REP ---
Clinical: Nontraumatic hip pain. Technique: Frontal view of the pelvis with neutral and frog lateral views of the left hip. Findings: There is no evidence for acute fracture dislocation. Mild degenerative changes involving the right hip include subtle sclerosis to the acetabular roof with minimal joint space narrowing and marginal spur forming along the superior aspect of the femoral head. Left hip appears relatively normal for age. Impression: Mild degenerative changes primarily involving the right hip. Electronically Signed by Edward Schmidt MD 09/01/2018 04:53 P
[2018-09-01 18:08] LABS: HEMATOCRIT 27.2 % (36.0-47.0); MEAN CORPUSCULAR HEMOGLOBIN 26.2 pg (27.0-33.0); MEAN CORPUSCULAR HGB CONC 33.1 g/dl (32.0-36.5); MEAN CORPUSCULAR VOLUME 79.3 fl (80.0-96.0); PLATELET COUNT, AUTOMATED 105 10^3/uL (150-450); RED BLOOD COUNT 3.43 10^6/uL (4.00-5.40); WHITE BLOOD COUNT 5.5 10^3/uL (4.0-10.0)
[2018-09-01 18:22] LABS: INR 1.19; PROTHROMBIN TIME 15.3 SECONDS (12.1-14.4)
[2018-09-01 18:23] LABS: PARTIAL THROMBOPLASTIN TIME 21.9 SECONDS (25.4-37.6)
[2018-09-01 18:53] LABS: ALBUMIN 2.6 GM/DL (3.2-5.2); BILIRUBIN,DIRECT 0.3 MG/DL (0.0-0.2); BILIRUBIN,TOTAL 0.7 MG/DL (0.2-1.0); C REACTIVE PROTEIN QUANTITATIV 18.6 MG/DL (0.00-0.30); CALCIUM LEVEL 8.3 MG/DL (8.5-10.1); CREATININE FOR GFR 1.3 MG/DL (0.55-1.30); POTASSIUM SERUM 4.4 MEQ/L (3.5-5.1); TOTAL PROTEIN 6.1 GM/DL (6.4-8.2)
[2018-09-01 18:58] LABS: ATYPICAL LYMPH 1 % (0-5); EOSINOPHILS 1 % (0-5); LYMPHOCYTES 12 % (16-52); MONOCYTES 3 % (0-8); NEUTROPHILS 82 % (35-75)
[2018-09-01] MEDS ORDERED: PERCOCET 5MG/325MG TAB PO ONE (19:00)
[2018-09-01] MEDS ORDERED: HumuLIN R (REGULAR) INSULIN (NovoLIN R) **100U/ML** PER UNIT IV ONE ×2 (19:00→23:30)
[2018-09-01 19:01] LABS: ANISOCYTOSIS 1+; DOHLE BODIES 1+; POLYCHROMASIA 1+
[2018-09-01 19:02] LABS: MICROCYTOSIS 1+
[2018-09-01 19:15] LABS: ERYTHROCYTE SEDIMENTATION RATE 108 mm/hr (0-30)
[2018-09-01 19:26] LABS: PLATELET ESTIMATE DECREASED (NORMAL)
[2018-09-01 19:59] LABS: HEMOGLOBIN A1c 14.4 %
[2018-09-01 20:33] LABS: ACETONE/KETONE 2.48 MG/DL (<2.81); PHOSPHORUS LEVEL 1.5 MG/DL (2.5-4.9)
[2018-09-02] MEDS ORDERED: BACITAB PO (00:05)
[2018-09-02] MEDS ORDERED: ONDA4TAB6 PO (00:05)
[2018-09-02] MEDS ORDERED: ADME100I SC (00:05)
[2018-09-02] MEDS ORDERED: DICL1GEL3 TOP (00:05)
[2018-09-02] MEDS ORDERED: REQU4TAB3 PO (00:05)
[2018-09-02] MEDS ORDERED: BASA100I SC (00:05)
[2018-09-02] MEDS ORDERED: QVAR40AE12 INH (00:05)
[2018-09-02] MEDS ORDERED: LACT10SO29 PO (00:05)
[2018-09-02] MEDS ORDERED: PRED20TA PO (00:05)
[2018-09-02] MEDS ORDERED: AZIT-10 PO (00:05)
[2018-09-02] MEDS ORDERED: ONDANSETRON 4MG/2ML VIAL (J2405) IV PRN (01:00)
[2018-09-02] MEDS ORDERED: DEXTROSE 50% 50 ML SYRINGE IV PRN (01:15)
[2018-09-02] MEDS ORDERED: NS 1,000 ML IV SCH (01:15)
[2018-09-02] MEDS ORDERED: TOPIRAMATE (TopAMAX) 25 MG TAB PO PRN (01:15)
[2018-09-02] MEDS ORDERED: FLUTICASONE PROP 0.05% NASAL SPRAY 16 GM (FLONASE) PRN (01:15)
[2018-09-02] MEDS ORDERED: GLUCOSE 4 GM CHEW TABLET PO PRN (01:15)
[2018-09-02] MEDS ORDERED: GLUCAGON FOR INJ 1 MG VIAL (J1610) SC PRN (01:15)
[2018-09-02] MEDS ORDERED: ONDANSETRON 4 MG ORAL DISINTEGRATING TAB (Q0162 PER 1MG) PO PRN (01:15)
[2018-09-02] MEDS ORDERED: LACTULOSE 20 GM/30 ML SYRUP UD PO PRN (01:15)
[2018-09-02] MEDS ORDERED: MECLIZINE 25 MG TABLET PO PRN (01:15)
[2018-09-02] MEDS ORDERED: IPRATROPIUM 0.5MG/ALBUTEROL 2.5MG INH SOL UD 3ML (DUONEB)(J7620) NEB PRN (01:30)
[2018-09-02 03:30] VITALS: BP 167/84
[2018-09-02 04:00] VITALS: BP 141/65
[2018-09-02] MEDS: MONTELUKAST 10 MG TAB PO SCH ×2 (04:09→21:33)
[2018-09-02] MEDS: rOPINIRole 1MG TAB PO SCH ×2 (04:09→21:31)
[2018-09-02] MEDS: NEUTRA-PHOS 1.25 GM PACKET PO SCH ×2 (04:10→04:18)
[2018-09-02] MEDS: MAGNESIUM OXIDE 400 MG TAB (MAG-OX) PO SCH ×2 (04:10→21:33)
[2018-09-02] MEDS: ceFAZolin SOD 1 GM in D5W MINI-BAG PLUS 50 ML IV SCH ×2 (04:10→12:40)
[2018-09-02] MEDS: rifAXIMin 550 MG TAB (XIFAXAN) PO SCH ×3 (04:18→21:32)
[2018-09-02] MEDS: DOCUSATE SODIUM 100 MG CAP PO SCH ×3 (04:18→21:33)
[2018-09-02] MEDS: CARVedilol 12.5 MG TAB PO SCH ×3 (04:19→21:32)
[2018-09-02] MEDS: DICYCLOMINE 10 MG CAP PO SCH ×5 (04:19→21:32)
[2018-09-02] MEDS: PREGABALIN 75 MG CAP(LYRICA) PO SCH ×3 (04:19→21:32)
[2018-09-02] MEDS: LEVEMIR (INSULIN DETEMIR) 1 UNITS/0.01ML SC SCH ×3 (04:20→21:34)
[2018-09-02 06:00] VITALS: BP 159/74
[2018-09-02] MEDS: HEPARIN SOD (PORCINE) 5000 UNITS/ML VIAL SC SCH ×3 (06:51→21:31)
[2018-09-02] MEDS: traMADol 50 MG TAB PO PRN ×2 (06:51→22:19)
--- NOTE | 2018-09-02 07:30 | HPE ---
DATE OF ADMISSION: 09/02/2018 CHIEF COMPLAINT: Pain, swelling, induration in the left ankle as well as left thigh. HISTORY OF PRESENT ILLNESS (HPI): The patient is a 52-year-old white female. She has a significant past medical history of cirrhosis secondary to nonalcoholic fatty liver disease (CHAMPAGNE), diabetes on insulin, hypertension, diastolic congestive heart failure (CHF), depression, gastroesophageal reflux disease (GERD), coronary artery disease (CAD), pulmonary hypertension, chronic obstructive pulmonary disease (COPD), obesity, obstructive sleep apnea and noncompliance with the continuous positive airway pressure (CPAP). She presents to the emergency room with pain, redness, subjective fevers and chills, nausea and vomiting, in the ankle and thigh for the previous 2-3 days. Patient denies any trauma to the area. However, patient recently visited a friend and noticed that she had multiple excoriations in the skin. It seemed like the inoculation site was secondary to itching. I did not notice any bedbugs on the patient's sleeping area. She denies any itching. She denies any trauma to the infected area. She has no prosthesis in the effected area. She endorses nausea and vomiting. She is noted to have uncontrolled hyperglycemia but not in diabetic ketoacidosis (DKA). PAST MEDICAL HISTORY: See HPI. PAST SURGICAL HISTORY: She has had a cholecystectomy, left leg abscess incision and drainage, (C) section, shoulder surgery, liver biopsy, cardiac catheterization, and breast cyst removal. ALLERGIES: To DILTIAZEM, LISINOPRIL, METFORMIN, ROSIGLITAZONE. Reactions are unknown. HOME MEDICATIONS: Include: - albuterol - Bumex - losartan - prednisone (She has 1 day left.) - spironolactone - azithromycin - Qvar - diclofenac - ropinirole - Topamax - vitamin D - Basaglar 75 twice a day - insulin sliding scale - Coreg - aspirin - Colace - lactulose - magnesium oxide - meclizine as needed SOCIAL HISTORY: She is current smoker. Denies alcohol or illicit drug use. FAMILY HISTORY: Diabetes, hypertension, heart disease, pancreatic cancer. REVIEW OF SYSTEMS: A 12-point review of systems was completed all of which were negative except those in the HPI. VITAL SIGNS ON ADMISSION: Temperature 97.1, pulse 94, respirations 16, saturating at 98% on room air, blood pressure 121/53. PHYSICAL EXAMINATION: General: She is well nourished, in no apparent distress. Head: Normocephalic, atraumatic. Eyes: Extraocular movements are intact. Pupils equal round and reactive to light. Neck is supple. No jugular venous distention (JVD). Lungs are clear to auscultation. No crackles, wheezes, rales or rhonchi. Cardiovascular: Regular rate and rhythm. Normal S1, S2. No murmurs, gallops or rub. The abdomen is soft, nontender and nondistended. Positive bowel sounds. No rebound or guarding. Extremities: She has an area of induration and erythema on the left lateral malleolus approximately 4 x 5 cm in dimension and also an area of induration, pain, erythema, warmth on the upper thigh area lateral aspect as well included. Neurologic: Alert and oriented times three. No focal deficit appreciated on exam. LABS AND IMAGING: Done in the emergency room, white count of 5, hemoglobin/hematocrit (H/H) of 9/27, platelets of 105. Coags: INR 1.19. Chemistries: Fasting glucose of 737, anion gap normal, bicarbonate of 21, sodium of 128, CRP of 18, LFTs within normal limits, phosphate of 1.5, magnesium within normal limits. Hemoglobin A1c of 14.4. X-rays of the hip and pelvis: Mild degenerative changes primarily involving the right hip. Chest x-ray shows no acute cardiopulmonary process. ASSESSMENT AND PLAN: Cellulitis of the ankle and the thigh. Likely inoculation site is from excoriations from what appears to be itching, possibly an allergic reaction, unclear if the patient has an infestation but no bedbugs were discerned and patient denies any itching. Will cover the patient with Ancef. The itching again may have been an allergic reaction for which she had Tylenol #3, IV fluids. For uncontrolled hyperglycemia, likely due to infx/steroids infection as well as prednisone use for recently bronchitis. Patient has one day left of prednisone and will discontinue, as well as one day of azithromycin and will discontinue as well. She is not in diabetic ketoacidosis. Anion gap and bicarbonate are normal. Some IV fluids as well as continue her basal bolus insulin. Metformin to be held. History of hypertension, hypertensive heart disease. Will continue Coreg. Will hold losartan in the setting of acute renal failure. For acute renal failure, will hold nephrotoxic medications, Bumex, spironolactone, losartan. Will fluid hydrate gently. History of cirrhosis secondary to nonalcoholic fatty liver disease (CHAMPAGNE) with resultant thrombocytopenia. Will continue lactulose. Will hold spironolactone and Bumex for now in the setting of acute renal failure. For obstructive sleep apnea, chronic obstructive pulmonary disease, continue DuoNebs. She is not compliant with CPAP. Oxygen as needed. Pulmonary hypertension, oxygen as needed. History of depression, gastroesophageal reflux disease continue home meds. Supportive deep venous thrombosis (DVT) prophylaxis heparin subcu. Gastrointestinal (GI) prophylaxis not indicated. Diet cardiac, diabetic diet, fluid restriction. MTDD
[2018-09-02 08:19] LABS: HEMOGLOBIN 8.8 g/dl (12.0-15.5); MEAN CORPUSCULAR HEMOGLOBIN 26.5 pg (27.0-33.0); MEAN CORPUSCULAR HGB CONC 32.6 g/dl (32.0-36.5); MEAN CORPUSCULAR VOLUME 81.3 fl (80.0-96.0); PLATELET COUNT, AUTOMATED 123 10^3/uL (150-450); RED BLOOD COUNT 3.32 10^6/uL (4.00-5.40); WHITE BLOOD COUNT 5.4 10^3/uL (4.0-10.0)
[2018-09-02] MEDS: LACTULOSE 20 GM/30 ML SYRUP UD PO SCH (08:27)
[2018-09-02] MEDS: HumaLOG INSULIN (NovoLOG) PER UNIT SC SCH ×4 (08:28→21:34)
[2018-09-02] MEDS: VITAMIN D 1,000 INTERNATIONAL UNITS TABLET PO SCH (08:29)
[2018-09-02] MEDS: LACTOBACILLUS ACIDOPHILUS CAP (BACID) PO SCH (08:30)
[2018-09-02] MEDS: ASPIRIN 81 MG ENTERIC TAB PO SCH (08:32)
[2018-09-02] MEDS: OMEPRAZOLE 20 MG CAP PO SCH (08:32)
--- NOTE | 2018-09-02 08:42 | REP ---
Soft-tissue ultrasound left hip and thigh region. History: Left thigh cellulitis. Assess for fluid collection. Findings: Sonographic scanning through the area of redness and swelling shows no evidence of abscess or other fluid collection. Impression: Negative soft-tissue ultrasound. Electronically Signed by Robbie Carvalho MD 09/02/2018 09:59 A
[2018-09-02 08:54] LABS: ATYPICAL LYMPH 4 % (0-5); LYMPHOCYTES 17 % (16-52); MONOCYTES 5 % (0-8); NEUTROPHILS 72 % (35-75)
[2018-09-02 08:55] LABS: ANISOCYTOSIS 1+; MICROCYTOSIS 1+; PLATELET ESTIMATE DECREASED (NORMAL)
[2018-09-02 08:56] LABS: POLYCHROMASIA 1+
[2018-09-02 09:28] LABS: ALBUMIN 2.5 GM/DL (3.2-5.2); BILIRUBIN,TOTAL 0.8 MG/DL (0.2-1.0); CREATININE FOR GFR 1.26 MG/DL (0.55-1.30); GLOMERULAR FILTRATION RATE 47.7 (>51); POTASSIUM SERUM 4.3 MEQ/L (3.5-5.1); TOTAL PROTEIN 5.7 GM/DL (6.4-8.2)
[2018-09-02] MEDS ORDERED: VANCOMYCIN HCL 1,000 MG, VIAL MATE ADAPTER 1 EACH in D5W 250 ML IV SCH ×2 (10:45→12:00)
[2018-09-02 14:00] VITALS: BP 130/60
[2018-09-02] MEDS: VANCOMYCIN HCL 1,000 MG, VIAL MATE ADAPTER 1 EACH in D5W 250 ML IV SCH ×2 (14:08→16:18)
--- NOTE | 2018-09-02 14:18 | PHACANCOPD ---
PHARMACY VANCOMYCIN DOSING Pt Demographics Demographics Patient Age:52 , Weight:171.000 , Gender: female Adjusted Body Weight Date: 09/02/18, Adjusted Body Weight: Kg Events Past 24 Hours Events Past 24 Hours: YES: Fever Vancomycin Vancomycin Target Ranges: 15-20 mcg/ml Vancomycin Load Y/N: Yes Load Dose Date Time Vancomycin Load Dose: 2 GM Date: 09/02/18 Time: 1300 Vancomycin Dose Date: 09/02/18. Current Vancomycin Dose: [1250 MG IV Q8H] Intermittent Dosing?: No Labs Micro Microbiology 09/02/18 Blood Culture, Received Pending 09/02/18 Blood Culture, Received Pending 09/01/18 Blood Culture - Preliminary, Resulted 09/01/18 Blood Culture - Preliminary, Resulted Creatinine Clearance Date:09/02/18. Creatinine Clearance: . Assessment and Plan Maintaining Current Dose?: Yes Reason for dose change: No Dose Change Pharmacist Note Pharmacist Note Date: 09/02/18. Pharmacist note: Pharmacy consulted for Vancomycin dosing, preliminary blood culture results indicate gram positive cocci. Therefore we'll aim for a goal trough of 15-20 mcg/ml. Positive MRSA nare screen in 2012. ESR is elevated and patient has been slightly febrile. We will load her with 2 grams and follow with 1250 mg q8h. Pharmacy will continue to monitor and make adjustments if necessary. [facility] Sep 02, 2018 14:17
[2018-09-02] MEDS: MICONAZOLE-7 VAGINAL 2% CREAM 47.7 GM PV SCH (21:31)
[2018-09-02] MEDS: VANCOMYCIN HCL 750 MG, VIAL MATE ADAPTER 1 EACH in D5W 250 ML IV SCH (21:32)
[2018-09-02 22:00] VITALS: BP 138/64
[2018-09-02] MEDS: VANCOMYCIN HCL 500 MG in D5W MINI-BAG PLUS 100 ML IV SCH (23:19)
[2018-09-03] MEDS: VANCOMYCIN HCL 750 MG, VIAL MATE ADAPTER 1 EACH in D5W 250 ML IV SCH (05:32)
[2018-09-03] MEDS: HEPARIN SOD (PORCINE) 5000 UNITS/ML VIAL SC SCH ×3 (05:53→22:20)
[2018-09-03 06:00] VITALS: BP 132/64
[2018-09-03 06:42] LABS: HEMOGLOBIN 8.2 g/dl (12.0-15.5); MEAN CORPUSCULAR HGB CONC 32.8 g/dl (32.0-36.5); MEAN CORPUSCULAR VOLUME 79.4 fl (80.0-96.0); PLATELET COUNT, AUTOMATED 135 10^3/uL (150-450); RED BLOOD COUNT 3.15 10^6/uL (4.00-5.40); WHITE BLOOD COUNT 4.6 10^3/uL (4.0-10.0)
[2018-09-03 06:58] LABS: CALCIUM LEVEL 8.1 MG/DL (8.5-10.1); CREATININE FOR GFR 1.13 MG/DL (0.55-1.30); POTASSIUM SERUM 3.7 MEQ/L (3.5-5.1)
[2018-09-03] MEDS: VANCOMYCIN HCL 500 MG in D5W MINI-BAG PLUS 100 ML IV SCH (07:01)
[2018-09-03] MEDS: HumaLOG INSULIN (NovoLOG) PER UNIT SC SCH ×4 (07:53→22:21)
[2018-09-03 08:31] LABS: C REACTIVE PROTEIN QUANTITATIV 13.7 MG/DL (0.00-0.30)
[2018-09-03 08:47] VITALS: BP 138/58
[2018-09-03] MEDS: DICYCLOMINE 10 MG CAP PO SCH ×4 (09:00→22:18)
[2018-09-03] MEDS: traMADol 50 MG TAB PO PRN ×2 (09:28→22:23)
[2018-09-03] MEDS ORDERED: ceFAZolin SOD 1 GM in D5W MINI-BAG PLUS 50 ML IV SCH (09:45)
[2018-09-03] MEDS: ASPIRIN 81 MG ENTERIC TAB PO SCH (09:51)
[2018-09-03] MEDS: LACTOBACILLUS ACIDOPHILUS CAP (BACID) PO SCH (09:51)
[2018-09-03] MEDS: VITAMIN D 1,000 INTERNATIONAL UNITS TABLET PO SCH (09:52)
[2018-09-03] MEDS: CARVedilol 12.5 MG TAB PO SCH ×2 (09:52→22:17)
[2018-09-03] MEDS: OMEPRAZOLE 20 MG CAP PO SCH (09:52)
[2018-09-03] MEDS: DOCUSATE SODIUM 100 MG CAP PO SCH ×2 (09:52→22:18)
[2018-09-03] MEDS: LACTULOSE 20 GM/30 ML SYRUP UD PO SCH (09:53)
[2018-09-03] MEDS: rifAXIMin 550 MG TAB (XIFAXAN) PO SCH ×2 (09:53→22:19)
[2018-09-03] MEDS: LEVEMIR (INSULIN DETEMIR) 1 UNITS/0.01ML SC SCH ×2 (09:55→22:21)
[2018-09-03] MEDS: PREGABALIN 75 MG CAP(LYRICA) PO SCH ×2 (10:49→22:18)
[2018-09-03] MEDS: rOPINIRole 1MG TAB PO PRN (10:52)
[2018-09-03 14:12] VITALS: BP 130/52
[2018-09-03 14:13] VITALS: BP 130/52
[2018-09-03] MEDS: BUMETANIDE 1 MG TAB PO SCH (17:00)
[2018-09-03] MEDS: PERCOCET 5MG/325MG TAB PO PRN (17:45)
--- NOTE | 2018-09-03 18:17 | IPNPDOC ---
Text Note Date of Service The patient was seen on 09/03/18. NOTE Subjective: Patient is a 52-year-old female with PMHx of COPD RADHA on CPAP (non- complaint), Pulmonary HTN, HTN, CAD, Diastolic CHF, IDDM2, CHAMPAGNE, Depression, GERD, who presented to the ER with complaints of pain, redness, swelling and tenderness of her left thigh and ankle for approximately 2 or 3 days with associated fever and chills as well as nausea and vomiting. Patient was admitted to the hospitalist service for possible cellulitis. Patient was seen and examined at the bedside. Currently patient notes that she still complaining of left leg pain. She's noted the redness, swelling and warmth have improved. Patient denies any nausea, vomiting, chest pain, shortness breath or palpitations. Denies abdominal pain, constipation, diarrhea or any discomfort with urination Objective: Vitals (See below) General: Lying in bed, no acute distress, comfortable, AAOx3 HEENT: NC, AT CVS: RRR, +S1S2 Lungs: Fair air entry b/l, -w/r/r Abdomen: Soft, ND, NT, morbid obesity Extremities: 1+ edema at left leg, no edema at right leg, - Calf tenderness Skin: Left buttock / thigh - area has regressed from demarcation lines; less erythema, warmth and tenderness noted; drainage and now appreciated Left ankle - areas. Also regressed from demarcation lines with lessening of erythema, warmth and tenderness; no drainage noted Assessment and plan: Redness / Warmth / Tenderness at left buttock / thigh and left ankle - likely 2/2 cellulitis - Presented to the ER with a worsening warmth, redness and tenderness at her left buttock and ankle with associated fever and chills - Physical reveals improvement and regression from areas demarcation - Remains afebrile and hemodynamically stable - No significant leukocytosis or lactic acidosis; CRP has been trending down - Blood cultures 09/01: Strep Agalactiae Group B; Repeat blood cultures 09/02: No growth at 24 hours - c/w Cefazolin; s/p Vancomycin (Antibiotic day #2) Pain at left leg - possibly 2/2 above, possibly 2/2 acute DVT - US 09/02: Negative soft-tissue ultrasound. - Will repeat Duplex US of L LE and will get XR of Tib/Fib to evaluate for free air Hyponatremia (mild) - likely 2/2 hypotonic - appears euvolemic / hypervolemic - Will resume diuretics Microcytic / Normocytic anemia - Hg baseline of 9-10 - No evidence of gross bleeding - Will continue to follow - Will resume diuretics COPD - no evidence of exacerbation - c/w Montelukast - c/w inhaled therapy as ordered RADHA on CPAP (non-complaint) - may allow home CPAP use HTN - BP well controlled - Losartan on hold - c/w Carvedilol CAD - c/w ASA 81 Diastolic CHF / Pulmonary HTN - no evidence of exacerbation - ECHO 10/2016: Preserved EF, G2DD, moderate Pulmonary HTN - s/p IV fluids - Will resume Bumetanide and Spironolactone IDDM2 - c/w ISS and Levemir CHAMPAGNE - c/w Rifaximin and Lactulose Migraine headaches - c/w Topiramate Neuropathy - c/w Lyrica Depression RLS - c/w Ropinirole GERD - c/w Omeprazole DVT prophylaxis - c/w Heparin VS,Fishbone, I+O VS, Fishbone, I+O Laboratory Tests 09/03/18 06:25 Red Blood Count 3.15 L, Mean Corpuscular Volume 79.4 L, Mean Corpuscular Hemoglobin 26.0 L, Mean Corpuscular Hemoglobin Concent 32.8, Red Cell Distribution Width 17.2 H, Calcium Level 8.1 L Vital Signs Date Time Temp Pulse Resp B/P (MAP) Pulse Ox O2 Delivery O2 Flow Rate FiO2 09/03/18 17:45 18 09/03/18 14:13 97.7 72 130/52 (78) 95 09/02/18 01:34 Room Air I&O- Last 24 Hours up to 6 AM 09/03/18 06:00 Intake Total 3885 ml Output Total 1300 ml Balance 2585 ml AMBROSE AGUIRRE MD Sep 03, 2018 18:17
--- NOTE | 2018-09-03 19:13 | REPVR ---
EXAM: US Duplex Left Lower Extremity Veins, Limited EXAM DATE/TIME: 09/03/2018 6:47 PM CLINICAL HISTORY: 52 years old, female; Pain; Leg, upper; Left; Additional info: Severe left calf pain TECHNIQUE: Real-time Duplex ultrasound of the Left Lower Extremity with 2-D chester scale, color Doppler flow and spectral waveform analysis. Limited exam focused on the left lower extremity veins. COMPARISON: US Duplex, Ext LOWER veins, bilat 04/23/2018 9:57 PM FINDINGS: Left deep veins: Unremarkable. The common femoral, femoral, proximal profunda femoral and popliteal veins are patent without thrombus. Normal Doppler waveforms. Normal compressibility and/or augmentation response. Left superficial veins: Unremarkable. Saphenofemoral junction is patent without thrombus. Soft tissues: The soft tissues of the left leg are edematous IMPRESSION: No acute findings. No evidence of deep vein thrombosis. Electronically signed by: Analy Villarreal On 09/03/2018 19:13:11 PM
--- NOTE | 2018-09-03 19:23 | REP ---
Clinical: Pain. Technique: AP and lateral views of the left tibia / fibula. Findings: No acute fracture dislocation. Moderate degenerative changes at the knee joint noted. No subcutaneous emphysema. Impression: 1. No acute fracture dislocation. 2. No subcutaneous emphysema. Electronically Signed by Edward Schmidt MD 09/03/2018 07:14 P
[2018-09-03 22:00] VITALS: BP 156/70
[2018-09-03] MEDS: MONTELUKAST 10 MG TAB PO SCH (22:17)
[2018-09-03] MEDS: MAGNESIUM OXIDE 400 MG TAB (MAG-OX) PO SCH (22:18)
[2018-09-03] MEDS: rOPINIRole 1MG TAB PO SCH (22:19)
[2018-09-03] MEDS: MICONAZOLE-7 VAGINAL 2% CREAM 47.7 GM PV SCH (22:20)
[2018-09-03] MEDS: NYSTATIN CREAM 15 GM TOP PRN (22:22)
[2018-09-04] MEDS: PERCOCET 5MG/325MG TAB PO PRN ×3 (03:32→22:11)
[2018-09-04] MEDS: HEPARIN SOD (PORCINE) 5000 UNITS/ML VIAL SC SCH ×3 (05:30→22:07)
[2018-09-04 06:00] VITALS: BP 112/56
[2018-09-04 06:47] LABS: HEMATOCRIT 25.4 % (36.0-47.0); HEMOGLOBIN 8.2 g/dl (12.0-15.5); MEAN CORPUSCULAR HEMOGLOBIN 26.5 pg (27.0-33.0); MEAN CORPUSCULAR HGB CONC 32.3 g/dl (32.0-36.5); MEAN CORPUSCULAR VOLUME 81.9 fl (80.0-96.0); PLATELET COUNT, AUTOMATED 142 10^3/uL (150-450); WHITE BLOOD COUNT 2.5 10^3/uL (4.0-10.0)
[2018-09-04 07:10] LABS: BLOOD UREA NITROGEN 24 MG/DL (7-18); C REACTIVE PROTEIN QUANTITATIV 8.77 MG/DL (0.00-0.30); CARBON DIOXIDE LEVEL 22 MEQ/L (21-32); CHLORIDE LEVEL 103 MEQ/L (98-107); CREATININE FOR GFR 0.97 MG/DL (0.55-1.30); GLOMERULAR FILTRATION RATE > 60.0 (>51); GLUCOSE, FASTING 220 MG/DL (70-100); POTASSIUM SERUM 3.6 MEQ/L (3.5-5.1); SODIUM LEVEL 133 MEQ/L (136-145)
[2018-09-04] MEDS: HumaLOG INSULIN (NovoLOG) PER UNIT SC SCH ×4 (07:52→22:08)
[2018-09-04] MEDS: LEVEMIR (INSULIN DETEMIR) 1 UNITS/0.01ML SC SCH ×2 (10:09→22:07)
[2018-09-04] MEDS: LACTULOSE 20 GM/30 ML SYRUP UD PO SCH (10:09)
[2018-09-04] MEDS: LACTOBACILLUS ACIDOPHILUS CAP (BACID) PO SCH (10:10)
[2018-09-04] MEDS: BUMETANIDE 1 MG TAB PO SCH ×2 (10:10→17:00)
[2018-09-04] MEDS: PREGABALIN 75 MG CAP(LYRICA) PO SCH ×2 (10:10→22:06)
[2018-09-04] MEDS: VITAMIN D 1,000 INTERNATIONAL UNITS TABLET PO SCH (10:10)
[2018-09-04] MEDS: OMEPRAZOLE 20 MG CAP PO SCH (10:11)
[2018-09-04] MEDS: ASPIRIN 81 MG ENTERIC TAB PO SCH (10:11)
[2018-09-04] MEDS: rifAXIMin 550 MG TAB (XIFAXAN) PO SCH ×2 (10:11→22:05)
[2018-09-04] MEDS: DOCUSATE SODIUM 100 MG CAP PO SCH ×2 (10:11→22:03)
[2018-09-04] MEDS: DICYCLOMINE 10 MG CAP PO SCH ×4 (10:11→22:05)
[2018-09-04] MEDS: SPIRONOLACTONE 50 MG TAB PO SCH (10:11)
[2018-09-04] MEDS: CARVedilol 12.5 MG TAB PO SCH ×2 (10:12→22:13)
[2018-09-04 14:00] VITALS: BP 132/73
[2018-09-04] MEDS: NYSTATIN CREAM 15 GM TOP PRN (14:03)
--- NOTE | 2018-09-04 14:49 | IPNPDOC ---
Text Note Date of Service The patient was seen on 09/04/18. NOTE Subjective: Patient is a 52-year-old female with PMHx of COPD RADHA on CPAP (non- complaint), Pulmonary HTN, HTN, CAD, Diastolic CHF, IDDM2, CHAMP[place]NE, Depression, GERD, who presented to the ER with complaints of pain, redness, swelling and tenderness of her left thigh and ankle for approximately 2 or 3 days with associated fever and chills as well as nausea and vomiting. Patient was admitted to the hospitalist service for possible cellulitis. Patient was seen and examined at the bedside. Patient notes that her leg pain is doing significantly better. She denies any nausea or vomiting. Denies chest pain, shortness breath or palpitations. She does experience some draining from her left thigh. Denies any abdominal pain, constipation, diarrhea or discomfort with urination. Objective: Vitals (See below) General: Lying in bed, no acute distress, comfortable, AAOx3 HEENT: NC, AT CVS: RRR, +S1S2 Lungs: Fair air entry b/l, ano evidence of wheezing / rhonchi / rales on auscultation Abdomen: Soft, non-distended, non-tender, morbid obesity Extremities: trace edema at left leg, no edema at right leg, - Calf tenderness Skin: Left buttock / thigh - regression from demarcation lines; erythema/warmth/tenderness improved; drainage / some open blisters present Left ankle - area improving; no drainage noted Assessment and plan: Redness / Warmth / Tenderness at left buttock / thigh and left ankle - likely 2/2 cellulitis - Presented to the ER with a worsening warmth, redness and tenderness at her lef t buttock and ankle with associated fever and chills - Physical reveals improvement and regression from areas demarcation - Remains afebrile and hemodynamically stable - No significant leukocytosis or lactic acidosis; CRP continues to improve - Blood cultures 09/01: Strep Agalactiae Group B; Repeat blood cultures 09/02: No growth at 48 hours - c/w Cefazolin; s/p Vancomycin (Antibiotic day #3) Pain at left leg - possibly 2/2 above, unlikely 2/2 acute DVT - US 09/02: Negative soft-tissue ultrasound. - US 09/03: No acute findings. No evidence of deep vein thrombosis. Hyponatremia (mild) - likely 2/2 hypotonic - appears euvolemic / hypervolemic - c/w diuretics Microcytic / Normocytic anemia - Hg baseline of 9-10 - No evidence of gross bleeding - Will continue to follow - c/w diuretics COPD - no evidence of exacerbation - c/w Montelukast - c/w inhaled therapy as ordered RADHA on CPAP (non-complaint) - may allow home CPAP use HTN - BP well controlled - Losartan on hold - c/w Carvedilol CAD - c/w ASA 81 Diastolic CHF / Pulmonary HTN - no evidence of exacerbation - ECHO 10/2016: Preserved EF, G2DD, moderate Pulmonary HTN - s/p IV fluids - c/w Bumetanide and Spironolactone IDDM2 - c/w ISS and Levemir CHAMPANGE - c/w Rifaximin and Lactulose Migraine headaches - c/w Topiramate Neuropathy - c/w Lyrica Depression RLS - c/w Ropinirole GERD - c/w Omeprazole DVT prophylaxis - c/w Heparin Disposition: - Will start PT tomorrow VS,Rosemary, I+O VS, Rosemary, I+O Laboratory Tests 09/04/18 06:22 Red Blood Count 3.10 L, Mean Corpuscular Volume 81.9, Mean Corpuscular Hemoglobin 26.5 L, Mean Corpuscular Hemoglobin Concent 32.3, Red Cell Distribution Width 17.4 H, Calcium Level 8.0 L Vital Signs Date Time Temp Pulse Resp B/P (MAP) Pulse Ox O2 Delivery O2 Flow Rate FiO2 09/04/18 14:01 18 09/04/18 14:00 97.2 75 132/73 (92) 98 09/02/18 01:34 Room Air I&O- Last 24 Hours up to 6 AM 09/04/18 06:00 Intake Total 2700 ml Output Total 4250 ml Balance -1550 ml AMBROSE AGUIRRE MD Sep 04, 2018 14:49
[2018-09-04 22:00] VITALS: BP 174/74
[2018-09-04] MEDS: MONTELUKAST 10 MG TAB PO SCH (22:05)
[2018-09-04] MEDS: MAGNESIUM OXIDE 400 MG TAB (MAG-OX) PO SCH (22:06)
[2018-09-04] MEDS: rOPINIRole 1MG TAB PO SCH (22:06)
[2018-09-04] MEDS: MICONAZOLE-7 VAGINAL 2% CREAM 47.7 GM PV SCH (22:13)
[2018-09-05] MEDS: traMADol 50 MG TAB PO PRN ×2 (03:10→22:21)
[2018-09-05] MEDS: HEPARIN SOD (PORCINE) 5000 UNITS/ML VIAL SC SCH ×3 (05:34→22:20)
[2018-09-05 06:00] VITALS: BP 146/65
[2018-09-05 06:58] LABS: HEMATOCRIT 28.1 % (36.0-47.0); HEMOGLOBIN 8.8 g/dl (12.0-15.5); MEAN CORPUSCULAR HGB CONC 31.3 g/dl (32.0-36.5); MEAN CORPUSCULAR VOLUME 82.9 fl (80.0-96.0); PLATELET COUNT, AUTOMATED 153 10^3/uL (150-450); RED BLOOD COUNT 3.39 10^6/uL (4.00-5.40); WHITE BLOOD COUNT 2.3 10^3/uL (4.0-10.0)
[2018-09-05 07:17] LABS: C REACTIVE PROTEIN QUANTITATIV 6.6 MG/DL (0.00-0.30); CALCIUM LEVEL 7.9 MG/DL (8.5-10.1); CREATININE FOR GFR 1.23 MG/DL (0.55-1.30)
[2018-09-05] MEDS: BUMETANIDE 1 MG TAB PO SCH ×2 (09:29→15:35)
[2018-09-05] MEDS: DICYCLOMINE 10 MG CAP PO SCH ×4 (09:29→20:24)
[2018-09-05] MEDS: CARVedilol 12.5 MG TAB PO SCH ×2 (09:29→20:28)
[2018-09-05] MEDS: ASPIRIN 81 MG ENTERIC TAB PO SCH (09:29)
[2018-09-05] MEDS: LACTOBACILLUS ACIDOPHILUS CAP (BACID) PO SCH (09:29)
[2018-09-05 09:30] VITALS: BP 146/56
[2018-09-05] MEDS: OMEPRAZOLE 20 MG CAP PO SCH (09:30)
[2018-09-05] MEDS: SPIRONOLACTONE 50 MG TAB PO SCH (09:30)
[2018-09-05] MEDS: rifAXIMin 550 MG TAB (XIFAXAN) PO SCH ×2 (09:30→20:24)
[2018-09-05] MEDS: PREGABALIN 75 MG CAP(LYRICA) PO SCH ×2 (09:30→20:24)
[2018-09-05] MEDS: VITAMIN D 1,000 INTERNATIONAL UNITS TABLET PO SCH (09:30)
[2018-09-05] MEDS: PERCOCET 5MG/325MG TAB PO PRN ×2 (09:32→20:28)
[2018-09-05] MEDS: LEVEMIR (INSULIN DETEMIR) 1 UNITS/0.01ML SC SCH ×2 (09:33→20:25)
[2018-09-05] MEDS: HumaLOG INSULIN (NovoLOG) PER UNIT SC SCH ×4 (09:34→20:25)
[2018-09-05] MEDS: LACTULOSE 20 GM/30 ML SYRUP UD PO SCH (09:35)
[2018-09-05] MEDS: DOCUSATE SODIUM 100 MG CAP PO SCH ×2 (09:35→20:24)
[2018-09-05] MEDS: rOPINIRole 1MG TAB PO PRN (09:47)
--- NOTE | 2018-09-05 11:48 | IPNPDOC ---
Text Note Date of Service The patient was seen on 09/05/18. NOTE Subjective: Patient is a 52-year-old female with PMHx of COPD RADHA on CPAP (non- complaint), Pulmonary HTN, HTN, CAD, Diastolic CHF, IDDM2, CHAMPAG[place], Depression, GERD, who presented to the ER with complaints of pain, redness, swelling and tenderness of her left thigh and ankle for approximately 2 or 3 days with associated fever and chills as well as nausea and vomiting. Patient was admitted to the hospitalist service for possible cellulitis. Patient was seen and examined at the bedside. Patient is indicating a lot of pain around the area of cellulitis on her left buttock. . He has indicated increased drainage. She denies any recent fevers or chills. Denies chest pain, shortness breath or palpitations. Denies nausea, vomiting, abdominal pain, constipation or diarrhea. Denies any discomfort with urination. She notes that overall the leg pain is still persistent, but not as bad as it was when she first came to the emergency room. Objective: Vitals (See below) General: Lying in bed, no acute distress, comfortable, AAOx3 HEENT: NC, AT CVS: RRR, +S1S2 Lungs: Fair air entry b/l, there does not appear to be any evidence of wheezing, rhonchi or rales on auscultation Abdomen: Abdomen remains soft, nondistended, without tenderness, morbid obesity Extremities: trace edema at left leg, no edema at right leg, - Calf tenderness Skin: Left buttock / thigh - area of cellulitis is still regressed from the demarcation lines drainage is noted, open blisters are noted and covered in dressing Left ankle - area has improvement of erythema, tenderness persists, no drainage is noted Assessment and plan: Redness / Warmth / Tenderness at left buttock / thigh and left ankle - likely 2/2 cellulitis - Presented to the ER with a worsening warmth, redness and tenderness at her left buttock and ankle with associated fever and chills - Physical reveals improvement and regression from areas demarcation - Remains afebrile and hemodynamically stable - Leukopenia; CRP continues to decline - Blood cultures 09/01: Strep Agalactiae Group B; Repeat blood cultures 09/02: No growth at 72 hours - c/w Cefazolin; s/p Vancomycin (Antibiotic day #4) Pain at left leg - possibly 2/2 above, unlikely 2/2 acute DVT - US 09/02: Negative soft-tissue ultrasound. - US 09/03: No acute findings. No evidence of deep vein thrombosis. s/p Hyponatremia (mild) - likely 2/2 hypotonic hypervolemic etiology - c/w diuretics Microcytic / Normocytic anemia - Hg baseline of 9-10; - Hg lower than baseline; however has remained stable - possibly 2/2 hemodilution - No evidence of gross bleeding - Will continue to follow - c/w diuretics COPD - no evidence of exacerbation - c/w Montelukast - c/w inhaled therapy as ordered RADHA on CPAP (non-complaint) - may allow home CPAP use HTN - BP well controlled - Losartan on hold - c/w Carvedilol CAD - c/w ASA 81 Diastolic CHF / Pulmonary HTN - no evidence of exacerbation - ECHO 10/2016: Preserved EF, G2DD, moderate Pulmonary HTN - s/p IV fluids - c/w Bumetanide and Spironolactone IDDM2 - c/w ISS and Levemir CHAMPAGNE - c/w Rifaximin and Lactulose Migraine headaches - c/w Topiramate Neuropathy - c/w Lyrica Depression RLS - c/w Ropinirole GERD - c/w Omeprazole DVT prophylaxis - c/w Heparin Disposition: - c/w PT and antibiotics VS,Fishbone, I+O VS, Fishbone, I+O Laboratory Tests 09/05/18 06:38 Red Blood Count 3.39 L, Mean Corpuscular Volume 82.9, Mean Corpuscular Hemoglobin 26.0 L, Mean Corpuscular Hemoglobin Concent 31.3 L, Red Cell Distribution Width 18.0 H, Calcium Level 7.9 L Vital Signs Date Time Temp Pulse Resp B/P (MAP) Pulse Ox O2 Delivery O2 Flow Rate FiO2 09/05/18 10:05 18 09/05/18 09:30 84 146/56 (86) 95 09/05/18 06:00 97.8 09/02/18 01:34 Room Air I&O- Last 24 Hours up to 6 AM 09/05/18 06:00 Intake Total 3888 ml Output Total 4150 ml Balance -262 ml AMBROSE AGUIRRE MD Sep 05, 2018 11:48
[2018-09-05 14:00] VITALS: BP 162/72
[2018-09-05] MEDS: MONTELUKAST 10 MG TAB PO SCH (20:24)
[2018-09-05] MEDS: rOPINIRole 1MG TAB PO SCH (20:24)
[2018-09-05] MEDS: MAGNESIUM OXIDE 400 MG TAB (MAG-OX) PO SCH (20:24)
[2018-09-05] MEDS: NYSTATIN CREAM 15 GM TOP PRN (20:25)
[2018-09-05] MEDS: MICONAZOLE-7 VAGINAL 2% CREAM 47.7 GM PV SCH (21:00)
[2018-09-05 22:00] VITALS: BP 186/78
[2018-09-06] MEDS: PERCOCET 5MG/325MG TAB PO PRN (02:59)
[2018-09-06] MEDS: HEPARIN SOD (PORCINE) 5000 UNITS/ML VIAL SC SCH (05:36)
[2018-09-06 06:00] VITALS: BP 135/63
[2018-09-06] MEDS: traMADol 50 MG TAB PO PRN (06:45)
[2018-09-06 07:35] VITALS: BP 150/75
[2018-09-06 07:43] LABS: MEAN CORPUSCULAR HEMOGLOBIN 25.6 pg (27.0-33.0); MEAN CORPUSCULAR VOLUME 82.6 fl (80.0-96.0); PLATELET COUNT, AUTOMATED 175 10^3/uL (150-450); RED BLOOD COUNT 3.51 10^6/uL (4.00-5.40); WHITE BLOOD COUNT 2.3 10^3/uL (4.0-10.0)
[2018-09-06 08:07] LABS: BLOOD UREA NITROGEN 18 MG/DL (7-18); C REACTIVE PROTEIN QUANTITATIV 4.97 MG/DL (0.00-0.30); CARBON DIOXIDE LEVEL 27 MEQ/L (21-32); CHLORIDE LEVEL 102 MEQ/L (98-107); CREATININE FOR GFR 0.98 MG/DL (0.55-1.30); GLOMERULAR FILTRATION RATE > 60.0 (>51); GLUCOSE, FASTING 225 MG/DL (70-100); POTASSIUM SERUM 3.7 MEQ/L (3.5-5.1); SODIUM LEVEL 135 MEQ/L (136-145)
[2018-09-06] MEDS ORDERED: diphenhydrAMINE 25 MG CAP PO PRN (08:15)
[2018-09-06] MEDS: HumaLOG INSULIN (NovoLOG) PER UNIT SC SCH (08:24)
[2018-09-06] MEDS: LEVEMIR (INSULIN DETEMIR) 1 UNITS/0.01ML SC SCH (08:25)
[2018-09-06] MEDS: rifAXIMin 550 MG TAB (XIFAXAN) PO SCH (08:26)
[2018-09-06] MEDS: LACTULOSE 20 GM/30 ML SYRUP UD PO SCH (08:26)
[2018-09-06] MEDS: OMEPRAZOLE 20 MG CAP PO SCH (08:27)
[2018-09-06 08:28] VITALS: BP 150/75
[2018-09-06] MEDS: CARVedilol 12.5 MG TAB PO SCH (08:28)
[2018-09-06] MEDS: BUMETANIDE 1 MG TAB PO SCH (08:29)
[2018-09-06] MEDS: SPIRONOLACTONE 50 MG TAB PO SCH (08:29)
[2018-09-06] MEDS: DICYCLOMINE 10 MG CAP PO SCH (08:30)
[2018-09-06] MEDS: VITAMIN D 1,000 INTERNATIONAL UNITS TABLET PO SCH (08:30)
[2018-09-06] MEDS: DOCUSATE SODIUM 100 MG CAP PO SCH (08:30)
[2018-09-06] MEDS: ASPIRIN 81 MG ENTERIC TAB PO SCH (08:31)
[2018-09-06] MEDS: LACTOBACILLUS ACIDOPHILUS CAP (BACID) PO SCH (08:31)
[2018-09-06] MEDS: PREGABALIN 75 MG CAP(LYRICA) PO SCH (08:31)
[2018-09-06] MEDS: rOPINIRole 1MG TAB PO PRN (08:39)
[2018-09-06] MEDS ORDERED: KEFL500C17 PO (10:41)
[2018-09-06] MEDS ORDERED: OXYC1TAB23 PO (10:44)
--- NOTE | 2018-09-06 16:18 | DS.PDOC ---
Discharge Summary General Date of Admission Sep 02, 2018 at 00:47 Date of Discharge 09/06/2018 Discharge Summary PROCEDURES PERFORMED DURING STAY: [None]. ADMITTING DIAGNOSES / DISCHARGE DIAGNOSES: Redness / Warmth / Tenderness at left buttock / thigh and left ankle - likely 2/2 cellulitis Pain at left leg - possibly 2/2 above, unlikely 2/2 acute DVT s/p Hyponatremia (mild) - likely 2/2 hypotonic hypervolemic etiology Microcytic / Normocytic anemia COPD RADHA on CPAP (non-complaint) HTN CAD Diastolic CHF / Pulmonary HTN IDDM2 CHAMPAGNE Migraine headaches Neuropathy Depression RLS GERD DVT prophylaxis COMPLICATIONS/CHIEF COMPLAINT: Left left redness / warmth / tenderness HISTORY OF PRESENT ILLNESS: Patient is a 52-year-old female with PMHx of COPD RADHA on CPAP (non- complaint), Pulmonary HTN, HTN, CAD, Diastolic CHF, IDDM2, CHAMP[place], Depression, GERD, who presented to the ER with complaints of pain, redness, swelling and tenderness of her left thigh and ankle for approximately 2 or 3 days with associated fever and chills as well as nausea and vomiting. Patient was admitted to the hospitalist service for possible cellulitis. HOSPITAL COURSE: Redness / Warmth / Tenderness at left buttock / thigh and left ankle - likely 2/2 cellulitis - Clinically has had a significant improvement in area of erythema, warmth and tenderness - Physical reveals improvement and regression from areas demarcation - Remains afebrile and hemodynamically stable - Leukopenia; CRP continues to improve - Blood cultures 09/01: Strep Agalactiae Group B; Repeat blood cultures 09/02: No growth at 72 hours - c/w Cefazolin; s/p Vancomycin (Antibiotic day #5); will complete outpatient course of antibiotics with Keflex - Patient has cleared physical therapy Pain at left leg - possibly 2/2 above, unlikely 2/2 acute DVT - US 09/02: Negative soft-tissue ultrasound. - US 09/03: No acute findings. No evidence of deep vein thrombosis. s/p Hyponatremia (mild) - likely 2/2 hypotonic hypervolemic etiology - c/w diuretics Microcytic / Normocytic anemia - Hg baseline of 9-10 - Hg has approached baseline; was likely a component of hemodilution - No evidence of gross bleeding - Will continue to follow - c/w diuretics COPD - no evidence of exacerbation - c/w Montelukast - c/w inhaled therapy as ordered RADHA on CPAP (non-complaint) - may allow home CPAP use HTN - BP well controlled - Losartan on hold - c/w Carvedilol CAD - c/w ASA 81 Diastolic CHF / Pulmonary HTN - no evidence of exacerbation - ECHO 10/2016: Preserved EF, G2DD, moderate Pulmonary HTN - s/p IV fluids - c/w Bumetanide and Spironolactone IDDM2 - c/w ISS and Levemir CHAMPAGNE - c/w Rifaximin and Lactulose Migraine headaches - c/w Topiramate Neuropathy - c/w Lyrica Depression RLS - c/w Ropinirole GERD - c/w Omeprazole DVT prophylaxis - c/w Heparin DISCHARGE MEDICATIONS: Please see below. ALLERGIES: Please see below. PHYSICAL EXAMINATION ON DISCHARGE: Vitals (See below) General: Lying in bed, no acute distress, comfortable, AAOx3 HEENT: NC, AT CVS: RRR, +S1S2 Lungs: Air entry remains fair bilaterally without any evidence of rhonchi, rales or wheezing Abdomen: Abdomen remains soft, nondistended, without tenderness, morbid obesity Extremities: 1+ edema at left leg, no edema at right leg, - Calf tenderness Skin: Left buttock / thigh - areas appear to be blistered; open / closed; mild erythema, warmth and tenderness - although significantly improved Left ankle - area has improvement of erythema, tenderness persists, no drainage is noted LABORATORY DATA: Please see below. ACTIVITY: [As tolerated]. DISCHARGE PLAN: Follow up with Dr. Yair Paulino within 7 days Remain compliant with treatment plan and medications Return to the ER if you experience any problems DISPOSITION: Home Health Service. DISCHARGE CONDITION: [Stable]. TIME SPENT ON DISCHARGE: Greater than [35] minutes. Vital Signs/I&Os Vital Signs Date Time Temp Pulse Resp B/P (MAP) Pulse Ox O2 Delivery O2 Flow Rate FiO2 09/06/18 08:28 72 150/75 09/06/18 07:35 98.6 16 09/06/18 06:00 93 09/02/18 01:34 Room Air I&O- Last 24 Hours up to 6 AM 09/06/18 06:00 Intake Total 2520 ml Output Total 0 ml Balance 2520 ml Laboratory Data Labs 24H Laboratory Tests 2 09/05/18 16:43: Bedside Glucose (Misc Panel) 312H 09/05/18 20:14: Bedside Glucose (Misc Panel) 323H 09/05/18 21:39: Bedside Glucose (Misc Panel) 346H 09/06/18 06:50: Nucleated Red Blood Cells % (auto) 0.0, Anion Gap 6L, Glomerular Filtration Rate > 60.0, Blood Urea Nitrogen 18, Creatinine 0.98, Sodium Level 135L, Potassium Level 3.7, Chloride Level 102, Carbon Dioxide Level 27, Calcium Level 8.0L, C- Reactive Protein, Quantitative 4.97H CBC/BMP Laboratory Tests 09/06/18 06:50 Red Blood Count 3.51 L, Mean Corpuscular Volume 82.6, Mean Corpuscular Hemoglobin 25.6 L, Mean Corpuscular Hemoglobin Concent 31.0 L, Red Cell Distribution Width 18.1 H, Calcium Level 8.0 L FSBS Laboratory Tests Test 09/05/18 16:43 09/05/18 20:14 09/05/18 21:39 Range/Units Bedside Glucose (Misc Panel) 312 323 346 70-105 MG/DL Microbiology Microbiology 09/02/18 Blood Culture - Preliminary, Resulted No Growth after 72 hours. All specime... 09/02/18 Blood Culture - Preliminary, Resulted No Growth after 72 hours. All specime... 09/01/18 Blood Culture - Final, Complete Strep Agalactiae Group B 09/01/18 Blood Culture - Final, Complete Strep Agalactiae Group B Discharge Medications Scheduled (Admelog) 100 Unit/Ml Inj, 1 DOSE SC ACHS, (Reported) PER SLIDING SCALE (Aashishaglmarcial Ochoa) 100 Unit/Ml Inj, 75 UNIT SC BID, (Reported) Aspirin (Aspirin EC) 81 Mg Tabec, 81 MG PO DAILY, (Reported) Bumetanide (Bumetanide) 2 Mg Tab, 2 MG PO BID, (Reported) Carvedilol (Carvedilol) 25 Mg Tab, 25 MG PO BID, (Reported) Cephalexin Monohydrate (Keflex) 500 Mg Cap, 500 MG PO QID FOR 10 DAYS Dicyclomine HCl (Dicyclomine HCl) 10 Mg Cap, 10 MG PO QID, (Reported) Docusate Sodium (Colace) 100 Mg Cap, 100 MG PO BID, (Reported) Ergocalciferol (Vitamin D) 2,000 Unit Cap, 2,000 UNIT PO DAILY, (Reported) Lactobacillus Acidophilus (Bacid) 1 Tab Tab, 1 TAB PO DAILY, (Reported) Lactulose (Lactulose) 10 Gm/15 Ml Adali, 20 GM PO DAILY, (Reported) Losartan Potassium (Losartan Potassium) 50 Mg Tab, 25 MG PO DAILY, (Reported) Magnesium Oxide (Magnesium Oxide 400) 400 Mg Tab, 400 MG PO QHS, (Reported) Montelukast Sodium (Singulair) 10 Mg Tab, 10 MG PO QHS, (Reported) Omeprazole (Omeprazole) 20 Mg Cap, 20 MG PO DAILY, (Reported) Pregabalin (Lyrica) 75 Mg Cap, 75 MG PO BID, (Reported) Rifaximin (Xifaxan) 550 Mg Tab, 550 MG PO BID, (Reported) Ropinirole Hydrochloride (Requip) 4 Mg Tab, 4 MG PO QHS, (Reported) Spironolactone (Spironolactone) 50 Mg Tab, 50 MG PO DAILY, (Reported) Scheduled PRN Albuterol Sulfate (Proair Hfa) 108 Mcg/Act Aer, 2 PUFF INH Q4H PRN for SHORTNESS OF BREATH, (Reported) Albuterol/Ipratropium (Ipratropium Bodfish/Albut 0.5-2.5 (3) mg/3Ml) 1 Adali Adali, 1 INH INH QID PRN for SHORTNESS OF BREATH, (Reported) Beclomethasone Dipropionate (Qvar Redihaler) 40 Mcg/Act Aer, 2 PUFFS INH BID PRN for SHORTNESS OF BREATH, (Reported) Diclofenac Sodium (Diclofenac Sodium) 1 % Gel, 1 DOSE TOP QID PRN for PAIN, (Reported) APPLIES TO LEFT KNEE AND LEFT WRIST Fluticasone Propionate (Fluticasone Propionate) 50 Mcg/Act Spr, 1 SPRAY NA DAILY PRN for NASAL CONGESTION, (Reported) Lactulose (Lactulose) 10 Gm/15 Ml Adali, 20 GM PO BID PRN for CONSTIPATION, (Reported) Meclizine HCl (Meclizine HCl) 25 Mg Tab, 25 MG PO TID PRN for DIZZINESS, (Reported) Ondansetron (Ondansetron Odt) 4 Mg Tab, 4 MG PO Q4H PRN for NAUSEA, (Reported) Oxycodone/Acetaminophen (Oxycodone/Acetaminophen 5-325 mg) 1 Tab Tab, 1 TAB PO TIDP PRN for pain Ropinirole Hydrochloride (Requip) 4 Mg Tab, 4 MG PO DAILY PRN for RESTLESSNESS, (Reported) Topiramate (Topiramate) 50 Mg Tab, 50 MG PO QHS PRN for MIGRAINE, (Reported) Allergies Coded Allergies: Metformin (Verified Allergy, Intermediate, RASH, 04/23/18) Diltiazem (Verified Adverse Reaction, Intermediate, SWELLINGING IN HANDS, FEET, AND LEGS, 04/23/18) Lisinopril (Verified Adverse Reaction, Mild, cough, 04/23/18) Phenazopyridine (Verified Adverse Reaction, Mild, BLEEDING, 04/23/18) Rosiglitazone (Verified Adverse Reaction, Mild, WATER RETENTION, 04/23/18) AMBROSE AGUIRRE MD Sep 06, 2018 16:18
== END 2018-09-06 11:45 | disposition home health service (06) | DRG 383 ==
LOC: M ED 15:05 → M ED INP 09-02 00:47 → M MS5PR 09-02 03:15
PROVIDERS: ADMIT Internal Medicine; ATTEND Internal Medicine
DX: L03.116 Cellulitis of left lower limb (principal); N17.9 Acute kidney failure, unspecified; D69.59 Other secondary thrombocytopenia; E11.40 Type 2 diabetes mellitus with diabetic neuropathy, unspecified; I11.0 Hypertensive heart disease with heart failure; E11.65 Type 2 diabetes mellitus with hyperglycemia; I50.32 Chronic diastolic (congestive) heart failure; K75.81 Nonalcoholic steatohepatitis (NASH); K74.60 Unspecified cirrhosis of liver; I27.20 Pulmonary hypertension, unspecified; E87.1 Hypo-osmolality and hyponatremia; E66.01 Morbid (severe) obesity due to excess calories; L03.317 Cellulitis of buttock; J44.9 Chronic obstructive pulmonary disease, unspecified; G47.33 Obstructive sleep apnea (adult) (pediatric); I25.10 Atherosclerotic heart disease of native coronary artery without angina pectoris; G43.909 Migraine, unspecified, not intractable, without status migrainosus; K21.9 Gastro-esophageal reflux disease without esophagitis; F32.9 Major depressive disorder, single episode, unspecified; D50.9 Iron deficiency anemia, unspecified; Z79.899 Other long term (current) drug therapy; Z79.82 Long term (current) use of aspirin; Z88.8 Allergy status to other drugs, medicaments and biological substances; F17.200 Nicotine dependence, unspecified, uncomplicated; G25.81 Restless legs syndrome

== ENCOUNTER 2018-09-08 11:25 | Emergency (ER) | payer OTHER ==
[~2018-09-08] VITALS: Ht 182.9 cm; Wt 171.6 kg
[~2018-09-08 11:25] MED LIST changes: +ADME100I SC; +AZIT-10 PO; +BASA100I SC; +DICL1GEL3 TOP; +ONDA4TAB6 PO; +OXYC1TAB23 PO; +PRED20TA PO; +QVAR40AE12 INH
[2018-09-08] MEDS ORDERED: MORPHINE 4 MG/ML 1ML VIAL/SYRINGE (J2270) IV ONE (12:45)
[2018-09-08 12:47] LABS: HEMATOCRIT 28.7 % (36.0-47.0); MEAN CORPUSCULAR HEMOGLOBIN 25.9 pg (27.0-33.0); MEAN CORPUSCULAR HGB CONC 31.4 g/dl (32.0-36.5); MEAN CORPUSCULAR VOLUME 82.7 fl (80.0-96.0); PLATELET COUNT, AUTOMATED 164 10^3/uL (150-450); RED BLOOD COUNT 3.47 10^6/uL (4.00-5.40); WHITE BLOOD COUNT 2.6 10^3/uL (4.0-10.0)
--- NOTE | 2018-09-08 12:51 | REP ---
Left lower extremity Duplex Doppler venous ultrasound: Real time compression and duplex Doppler interrogation of the left lower extremity deep venous system is performed. The left common femoral, superficial femoral and popliteal veins are fully compressible with transducer pressure and demonstrate normal spontaneous and phasic flow, without evidence of deep venous thrombosis. Impression: No evidence of deep venous thrombosis of the left lower extremity femoral popliteal venous system. Electronically Signed by Pedro Pablo Lu MD 09/08/2018 12:43 P
[2018-09-08 13:07] LABS: ALBUMIN 2.5 GM/DL (3.2-5.2); ALT/SGPT 14 U/L (12-78); BILIRUBIN,TOTAL 0.5 MG/DL (0.2-1.0); BLOOD UREA NITROGEN 19 MG/DL (7-18); C REACTIVE PROTEIN QUANTITATIV 2.73 MG/DL (0.00-0.30); CALCIUM LEVEL 8.2 MG/DL (8.5-10.1); CARBON DIOXIDE LEVEL 29 MEQ/L (21-32); CHLORIDE LEVEL 98 MEQ/L (98-107); CREATININE FOR GFR 0.94 MG/DL (0.55-1.30); GLOMERULAR FILTRATION RATE > 60.0 (>51); GLUCOSE, FASTING 508 MG/DL (70-100); POTASSIUM SERUM 4.4 MEQ/L (3.5-5.1); SODIUM LEVEL 134 MEQ/L (136-145); TOTAL PROTEIN 6.4 GM/DL (6.4-8.2)
[2018-09-08 13:10] LABS: ATYPICAL LYMPH 5 % (0-5); BASOPHILS 1 % (0-4); EOSINOPHILS 3 % (0-5); LYMPHOCYTES 31 % (16-52); MONOCYTES 11 % (0-8); NEUTROPHILS 48 % (35-75)
[2018-09-08 13:11] LABS: ANISOCYTOSIS 1+; HYPOCHROMASIA 2+; OVALOCYTES 1+
[2018-09-08 13:12] LABS: PLATELET ESTIMATE NORMAL (NORMAL)
[2018-09-08 13:14] LABS: ERYTHROCYTE SEDIMENTATION RATE 86 mm/hr (0-30)
[2018-09-08] MEDS ORDERED: NS 1,000 ML IV ONE (13:15)
--- NOTE | 2018-09-08 13:43 | REP ---
LEFT FOOT, TWO VIEWS: Two views left foot are performed. Osseous structures are intact with no fracture or dislocation. Diffuse joint space narrowing and mild spurring is seen in the intercarpal joints. There is moderate inferior calcaneal spurring. There is diffuse moderate degree of soft tissue swelling predominantly in the mid foot. No definite air is seen in the soft tissues. Electronically Signed by Pedro Pablo Lu MD 09/08/2018 11:07 P
[2018-09-08] MEDS ORDERED: DOXYCYCLINE HYCLATE 100 MG TAB PO ONE (14:30)
[2018-09-08] MEDS ORDERED: LEVEMIR (INSULIN DETEMIR) 1 UNITS/0.01ML SC ONE (14:30)
[2018-09-08] MEDS ORDERED: OXYC-517 PO (17:09)
[2018-09-08] MEDS ORDERED: DOXY100C37 PO (17:09)
[2018-09-08 17:19] VITALS: BP 181/79
== END 2018-09-08 17:37 | disposition home or self-care (01) ==
LOC: M ED 11:25
DX: L03.116 Cellulitis of left lower limb (principal); E11.9 Type 2 diabetes mellitus without complications; I11.0 Hypertensive heart disease with heart failure; I50.9 Heart failure, unspecified; J44.9 Chronic obstructive pulmonary disease, unspecified; I25.10 Atherosclerotic heart disease of native coronary artery without angina pectoris; G25.0 Essential tremor; K74.69 Other cirrhosis of liver; F33.9 Major depressive disorder, recurrent, unspecified; F41.9 Anxiety disorder, unspecified; Z79.899 Other long term (current) drug therapy; Z79.82 Long term (current) use of aspirin; F17.210 Nicotine dependence, cigarettes, uncomplicated
CPT/HCPCS: 73620; 80053; 85025; 85652; 86140; 87040; 93971; 96374; 99285; J2270

== ENCOUNTER 2018-09-13 16:15 | Emergency (ER) | payer OTHER ==
[~2018-09-13] VITALS: Ht 182.9 cm; Wt 174.6 kg
[~2018-09-13 16:15] MED LIST changes: +DOXY100C37 PO
[2018-09-13 17:20] LABS: BASO % 1.1 % (0.0-1.0); EOS # 0.1 10^3/uL (0.0-0.50); EOS % 2.5 % (0.0-3.0); HEMATOCRIT 28.2 % (36.0-47.0); HEMOGLOBIN 8.9 g/dl (12.0-15.5); LYMPH # 1.2 10^3/uL (1.5-4.5); LYMPH % 41.8 % (24.0-44.0); MEAN CORPUSCULAR HEMOGLOBIN 26.5 pg (27.0-33.0); MEAN CORPUSCULAR HGB CONC 31.6 g/dl (32.0-36.5); MEAN CORPUSCULAR VOLUME 83.9 fl (80.0-96.0); MONO # 0.2 10^3/uL (0.0-0.8); MONO % 8.4 % (0.0-5.0); NEUTROPHILS # 1.3 10^3/uL (1.8-7.7); NEUTROPHILS % 45.8 % (36.0-66.0); PLATELET COUNT, AUTOMATED 207 10^3/uL (150-450); RED BLOOD COUNT 3.36 10^6/uL (4.00-5.40); WHITE BLOOD COUNT 2.9 10^3/uL (4.0-10.0)
[2018-09-13 17:48] LABS: C REACTIVE PROTEIN QUANTITATIV 1.1 MG/DL (0.00-0.30); CALCIUM LEVEL 7.9 MG/DL (8.5-10.1); CREATININE FOR GFR 1.21 MG/DL (0.55-1.30); GLOMERULAR FILTRATION RATE 49.9 (>51)
[2018-09-13 18:37] VITALS: BP 135/60
== END 2018-09-13 18:39 | disposition home or self-care (01) ==
LOC: M ED 16:15
DX: L03.116 Cellulitis of left lower limb (principal); L30.4 Erythema intertrigo; B37.2 Candidiasis of skin and nail; Z88.8 Allergy status to other drugs, medicaments and biological substances; Z79.899 Other long term (current) drug therapy; Z79.82 Long term (current) use of aspirin

== ENCOUNTER → 2018-09-15 | Outpatient (REF) | payer OTHER ==
[~2018-09-15] MED LIST changes: +BUPR300T34 PO; +CEPH500C PO; +LEVA1TAB2 PO; +POTA10CA32 PO; +TOPA50TA8 PO
[2018-09-15 11:59] LABS: CALCIUM LEVEL 8.5 MG/DL (8.5-10.1); CREATININE FOR GFR 1.16 MG/DL (0.55-1.30); GLOMERULAR FILTRATION RATE 52.4 (>51); POTASSIUM SERUM 3.9 MEQ/L (3.5-5.1)
== END ==
LOC: M SFHCLERA 08:40
PROVIDERS: ATTEND Family Medicine
DX: K74.60 Unspecified cirrhosis of liver (principal); I50.32 Chronic diastolic (congestive) heart failure

== ENCOUNTER 2018-09-16 01:12 | Inpatient (IN) | payer OTHER ==
[~2018-09-16] VITALS: Ht 182.9 cm; Wt 171.0 kg
[~2018-09-16 01:12] MED LIST changes: -BUPR300T34 PO; -CEPH500C PO; -LEVA1TAB2 PO; -POTA10CA32 PO; -TOPA50TA8 PO
[2018-09-16] MEDS ORDERED: MORPHINE 4 MG/ML 1ML VIAL/SYRINGE (J2270) IV ONE (04:15)
[2018-09-16 04:40] LABS: BASO % 0.8 % (0.0-1.0); EOS # 0.1 10^3/uL (0.0-0.50); EOS % 2.7 % (0.0-3.0); HEMATOCRIT 26.5 % (36.0-47.0); HEMOGLOBIN 8.3 g/dl (12.0-15.5); LYMPH # 1.1 10^3/uL (1.5-4.5); MEAN CORPUSCULAR HEMOGLOBIN 26.3 pg (27.0-33.0); MEAN CORPUSCULAR HGB CONC 31.3 g/dl (32.0-36.5); MEAN CORPUSCULAR VOLUME 83.9 fl (80.0-96.0); MONO # 0.3 10^3/uL (0.0-0.8); MONO % 10.2 % (0.0-5.0); NEUTROPHILS # 1.2 10^3/uL (1.8-7.7); NEUTROPHILS % 45.3 % (36.0-66.0); PLATELET COUNT, AUTOMATED 181 10^3/uL (150-450); RED BLOOD COUNT 3.16 10^6/uL (4.00-5.40); WHITE BLOOD COUNT 2.6 10^3/uL (4.0-10.0)
[2018-09-16 05:05] LABS: C REACTIVE PROTEIN QUANTITATIV 1.01 MG/DL (0.00-0.30); CALCIUM LEVEL 8.3 MG/DL (8.5-10.1); CREATININE FOR GFR 1.17 MG/DL (0.55-1.30); GLOMERULAR FILTRATION RATE 51.9 (>51); POTASSIUM SERUM 4.1 MEQ/L (3.5-5.1)
[2018-09-16 05:07] LABS: ERYTHROCYTE SEDIMENTATION RATE 107 mm/hr (0-30)
[2018-09-16] MEDS ORDERED: ceFAZolin SOD 1 GM in D5W MINI-BAG PLUS 50 ML IV ONE (05:45)
[2018-09-16] MEDS ORDERED: BUPR300T34 PO (05:57)
[2018-09-16] MEDS ORDERED: IPRA0.00 INH (05:57)
[2018-09-16] MEDS ORDERED: POTA10CA32 PO (05:57)
[2018-09-16] MEDS ORDERED: OXYC-517 PO (05:57)
[2018-09-16] MEDS ORDERED: DOXY-350 PO (05:57)
[2018-09-16] MEDS ORDERED: CEPH500C PO (05:57)
[2018-09-16] MEDS ORDERED: MECLIZINE 25 MG TABLET PO PRN (06:00)
[2018-09-16] MEDS ORDERED: FLUTICASONE PROP 0.05% NASAL SPRAY 16 GM (FLONASE) PRN (06:00)
[2018-09-16] MEDS ORDERED: LACTULOSE 20 GM/30 ML SYRUP UD PO PRN (06:00)
[2018-09-16] MEDS ORDERED: GLUCOSE 4 GM CHEW TABLET PO PRN (06:00)
[2018-09-16] MEDS ORDERED: rOPINIRole 1MG TAB PO PRN (06:00)
[2018-09-16] MEDS ORDERED: ONDANSETRON 4MG/2ML VIAL (J2405) IV PRN (06:00)
[2018-09-16] MEDS ORDERED: ONDANSETRON 4 MG ORAL DISINTEGRATING TAB (Q0162 PER 1MG) PO PRN (06:00)
[2018-09-16] MEDS ORDERED: GLUCAGON FOR INJ 1 MG VIAL (J1610) SC PRN (06:00)
[2018-09-16] MEDS ORDERED: DEXTROSE 50% 50 ML SYRINGE IV PRN (06:00)
[2018-09-16] MEDS ORDERED: IPRATROPIUM 0.5MG/ALBUTEROL 2.5MG INH SOL UD 3ML (DUONEB)(J7620) NEB PRN (06:15)
[2018-09-16] MEDS ORDERED: VANCOMYCIN HCL 1,000 MG, VIAL MATE ADAPTER 1 EACH in D5W 250 ML IV ONE (06:30)
[2018-09-16] MEDS: VANCOMYCIN HCL 1,000 MG, VIAL MATE ADAPTER 1 EACH in D5W 250 ML IV ONE ×2 (07:00→08:53)
--- NOTE | 2018-09-16 07:49 | HPE ---
DATE OF ADMISSION: 09/16/2018 CHIEF COMPLAINT: Pain and swelling, serosanguineous drainage from the left hip for the last 24 hours. HISTORY OF PRESENT ILLNESS: The patient is a 52-year-old female with a past medical history of cirrhosis secondary to nonalcoholic fatty liver disease, diabetes on insulin, hypertension, diastolic CHF, depression, GERD, coronary artery disease, pulmonary hypertension, COPD, obesity, obstructive sleep apnea, noncompliant with CPAP. She represents to the emergency room with pain redness, swelling, serosanguineous drainage from the left hip for the previous day and a half. She was seen by her visiting nurse who states that the area of erythema is increasing with increasing pain, subjective fevers, and chills. Notably in the patient's history she was recently admitted to [facility] on 09/02/2018 and discharged on 09/06/2018 with cellulitis of the hip and ankle. Cellulitis of the ankle has improved remarkably. However the site of the left hip, the patient developed scabbing over the hip which she states had removal of the scab and subsequently appears to be inoculation site. This patient has had two bouts of cellulitis within the last month in a half. She would likely benefit from prophylactic antibiotics to prevent recurrence of the cellulitis. She has also had multiple bouts of cellulitis in the past with abscesses status-post incision and drainage. She was currently in a course of doxy and Keflex from her discharge on 09/06/2018 which she had not yet completed and had 2-3 days left. We will also send a MRSA screen for this patient. Her toes were checked to see if there is any onychomycosis or any fungal infections that were responsible for the recurrent inoculation of cellulitis of the lower extremity. PAST MEDICAL HISTORY: See history of present illness. PAST SURGICAL HISTORY: She had a cholecystectomy, left leg abscess incision and drainage, , shoulder surgery, liver biopsy, cardiac catheter. ALLERGIES: Diltiazem, Lisinopril, Metformin, Rosiglitazone. HOME MEDICATIONS: Albuterol, DuoNeb, Bumex, losartan, spironolactone, Qvar, diclofenac, ropinirole, Topamax, vitamin D, Basaglar 75 twice a day, insulin sliding scale, Coreg, aspirin, Colace, lactulose as needed, magnesium oxide, Meclizine as needed. She is currently finishing up on a course of Keflex and doxy. SOCIAL HISTORY: She is a current smoker and denies alcohol or illicit drug use. FAMILY HISTORY: Diabetes, hypertension, heart disease, pancreatic cancer. REVIEW OF SYSTEMS: A 12 point review of system was completed all which were negative except those listed in the history of present illness. VITAL SIGNS ON ADMISSION: Temperature 97, pulse 82, respirations 20, blood pressure 169/77, sating at 97% on room air. PHYSICAL EXAMINATION: GENERAL: She is well nourished in no apparent distress. HEAD: Normocephalic, atraumatic. EYES: Extraocular movements are intact, Pupils are equal, rounds and reactive to light. NECK: Supple. No jugular venous pulse. LUNGS: Clear to auscultation. No crackles, wheezes or rales, no rhonchi. CARDIOVASCULAR: Regular rate and rhythm. Normal S1, S2. No murmurs, gallops of rubs. ABDOMEN: Soft, nontender and nondistended. Positive bowel sounds. No rebound no guarding. EXTREMITIES: She has an area of induration, erythema and scabbing with some granulation tissue, erythema greater than 2 cm around the lesion which is warm to touch. It is 3 x 4 cm area of induration of the left hip and a well healed ankle cellulitis. NEUROLOGICAL: Alert and oriented times three. No focal neurological deficit appreciated on exam. LABS AND IMAGING: White count 2.6, hemoglobin and hematocrit 8.3/26, baseline hemoglobin 9, platelet count of 181, chemistries BUN and creatinine of 33 and 1.1. She does have a baseline creatinine of 1, CRP 1.1. ASSESSMENT AND PLAN: 1. Cellulitis to the left hip and recurrent cellulitis. We will screen for MRSA. The patient's toes have been checked to see if there is any tinea pedis responsible but her current infection, this does not appear to be apparently the inoculation site. We will send blood cultures, wound cultures, vanco and Ancef. Patient would likely benefit from an extended course of antibiotics and may be a candidate for prophylactic antibiotics with multiple episodes of cellulitis of the lower extremity. 2. Diabetes. Continue Basaglar insulin sliding scale and hold all hypertensives. 3. History of hypertension. 4. Hypertensive heart disease. 5. Diastolic congestive heart failure. Continue Bumex as well as Losartan and Coreg. 6. Chronic kidney disease. Creatinine stable at baseline. 7. 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 8. Obstructive sleep apnea. Noncompliant with the CPAP. Oxygen as needed. 9. Pulmonary hypertension. Oxygen as needed. 10. History of depression. 11. GERD. Continue home medication. 12. DVT prophylaxis. Heparin subcu. 13. GI prophylaxis. Not indicated. 14. Diet, cardiac, diabetic. Fluid restriction.
--- NOTE | 2018-09-16 08:01 | PHACANCOPD ---
PHARMACY VANCOMYCIN DOSING Pt Demographics Demographics Patient Age:52 , Weight:175.450 , Gender: female Adjusted Body Weight Date: 09/16/18, Adjusted Body Weight: [114] Kg Events Past 24 Hours Events Past 24 Hours: NO: Dialysis, Diuretic Therapy, Change in CrCl, Fever, Elevation in WBC, Pending Diagnostics, Pending Procedures, Other Vancomycin Vancomycin indication: SKIN AND SOFT TISSUE INFECTION Vancomycin Target Ranges: 15-20 mcg/ml Vancomycin Load Y/N: Yes Load Dose Date Time Vancomycin Load Dose: 2G Date: 09/16/18 Time: 7 Vancomycin Dose Date: 09/16/18. Current Vancomycin Dose: [1G IV Q8H] Intermittent Dosing?: No Labs Labs Item Value Date Time White Blood Count 2.6 10^3/uL L 09/16/18433 C-Reactive Protein, Quantitative 1.01 MG/DL H 09/16/18 0434 Micro Microbiology 09/16/18 Blood Culture, Received Pending 09/16/18 MRSA Screen, Received Pending 09/16/18 Wound Culture, Received Pending Creatinine Clearance Date:09/16/18. Creatinine Clearance: [~102ML/MIN]. Pending Labs VANCOMYCIN TROUGH 09/17/18@06 Assessment and Plan Maintaining Current Dose?: Yes Reason for dose change: No Dose Change Pharmacist Note Pharmacist Note Date: 09/16/18. Pharmacist note: PT is a 52 year old female being treated for a skin/soft tissue infection goal trough 15-20mcg/ml. The patient was last treated with vancomycin here at [facility] in August 2018. To achieve goal a 2g loading dose was started 09/16/18 @07:00. Maintenance therapy will consist of 1g iv every 8 hours starting 09/16/18 @15. A trough is scheduled for 09/17/18 @06. We will continue to monitor and adjust dose as needed. [facility] Sep 16, 2018 08:01
[2018-09-16] MEDS: HumaLOG INSULIN (NovoLOG) PER UNIT SC SCH ×3 (08:16→18:02)
[2018-09-16] MEDS: oxyCODONE 5MG TAB PO PRN ×3 (08:17→21:59)
[2018-09-16] MEDS: LEVEMIR (INSULIN DETEMIR) 1 UNITS/0.01ML SC SCH ×2 (08:17→21:32)
[2018-09-16] MEDS: SPIRONOLACTONE 50 MG TAB PO SCH (08:55)
[2018-09-16] MEDS: DICYCLOMINE 10 MG CAP PO SCH ×4 (08:55→21:30)
[2018-09-16] MEDS: BUMETANIDE 1 MG TAB PO SCH ×2 (08:56→21:30)
[2018-09-16] MEDS: ASPIRIN 81 MG ENTERIC TAB PO SCH (08:57)
[2018-09-16] MEDS: POTASSIUM CHLORIDE 10 MEQ SR TABLET PO SCH (08:58)
[2018-09-16] MEDS: PREGABALIN 75 MG CAP(LYRICA) PO SCH ×2 (08:58→21:30)
[2018-09-16] MEDS: buPROPion **XL** TABLET 150MG (WELLBUTRIN XL) PO SCH (08:59)
[2018-09-16] MEDS: VITAMIN D 1,000 INTERNATIONAL UNITS TABLET PO SCH (08:59)
[2018-09-16] MEDS: rifAXIMin 550 MG TAB (XIFAXAN) PO SCH ×2 (09:00→21:30)
[2018-09-16] MEDS: OMEPRAZOLE 20 MG CAP PO SCH (09:05)
[2018-09-16] MEDS: DOCUSATE SODIUM 100 MG CAP PO SCH ×2 (09:05→21:31)
[2018-09-16] MEDS: LOSARTAN 50 MG TAB PO SCH (11:27)
[2018-09-16] MEDS: CARVedilol 12.5 MG TAB PO SCH ×2 (11:27→21:31)
--- NOTE | 2018-09-16 11:38 | REP ---
LEFT FEMUR, FOUR VIEWS: HISTORY: Left hip infection. COMPARISON: Left hip, date 09/01/2018. There is no acute fracture or dislocation. There is minimal narrowing of the left hip joint space and mild narrowing of the left knee joint space. IMPRESSION: There is no acute fracture or dislocation. Electronically Signed by Jay Dueñas MD 09/16/2018 11:41 A
[2018-09-16] MEDS: rOPINIRole 2MG TAB PO PRN ×2 (11:59→23:11)
[2018-09-16 12:07] VITALS: BP 154/87
[2018-09-16] MEDS: ceFAZolin SOD 1 GM in D5W MINI-BAG PLUS 50 ML IV SCH ×2 (13:21→21:31)
[2018-09-16 14:00] VITALS: BP 132/59
[2018-09-16] MEDS: VANCOMYCIN HCL 1,000 MG, VIAL MATE ADAPTER 1 EACH in D5W 250 ML IV SCH ×2 (15:14→23:07)
[2018-09-16] MEDS: MAGNESIUM OXIDE 400 MG TAB (MAG-OX) PO SCH (21:30)
[2018-09-16] MEDS: MONTELUKAST 10 MG TAB PO SCH (21:30)
[2018-09-16 22:00] VITALS: BP 134/61
[2018-09-16] MEDS: diphenhydrAMINE 25 MG CAP PO PRN (22:00)
[2018-09-17] MEDS: ceFAZolin SOD 1 GM in D5W MINI-BAG PLUS 50 ML IV SCH ×3 (05:25→22:02)
[2018-09-17 06:00] VITALS: BP 122/60
[2018-09-17 06:08] LABS: HEMATOCRIT 25.6 % (36.0-47.0); HEMOGLOBIN 7.9 g/dl (12.0-15.5); MEAN CORPUSCULAR HEMOGLOBIN 25.8 pg (27.0-33.0); MEAN CORPUSCULAR HGB CONC 30.9 g/dl (32.0-36.5); MEAN CORPUSCULAR VOLUME 83.7 fl (80.0-96.0); PLATELET COUNT, AUTOMATED 146 10^3/uL (150-450); RED BLOOD COUNT 3.06 10^6/uL (4.00-5.40); WHITE BLOOD COUNT 2.2 10^3/uL (4.0-10.0)
[2018-09-17 06:40] LABS: CALCIUM LEVEL 8.3 MG/DL (8.5-10.1); CREATININE FOR GFR 1.09 MG/DL (0.55-1.30); GLOMERULAR FILTRATION RATE 56.3 (>51); POTASSIUM SERUM 3.9 MEQ/L (3.5-5.1); VANCOMYCIN LEVEL TROUGH 20.8 UG/ML (10.0-20.0)
[2018-09-17] MEDS: diphenhydrAMINE 25 MG CAP PO PRN ×3 (06:43→21:59)
[2018-09-17] MEDS: oxyCODONE 5MG TAB PO PRN ×3 (06:43→20:49)
[2018-09-17] MEDS: HumaLOG INSULIN (NovoLOG) PER UNIT SC SCH ×3 (07:30→17:09)
[2018-09-17] MEDS: DICYCLOMINE 10 MG CAP PO SCH ×4 (07:46→20:48)
[2018-09-17] MEDS: LEVEMIR (INSULIN DETEMIR) 1 UNITS/0.01ML SC SCH ×2 (07:46→22:01)
[2018-09-17] MEDS: LOSARTAN 50 MG TAB PO SCH (07:47)
[2018-09-17] MEDS: rifAXIMin 550 MG TAB (XIFAXAN) PO SCH ×2 (07:47→20:48)
[2018-09-17] MEDS: BUMETANIDE 1 MG TAB PO SCH ×2 (07:47→20:48)
[2018-09-17] MEDS: SPIRONOLACTONE 50 MG TAB PO SCH (07:47)
[2018-09-17] MEDS: ASPIRIN 81 MG ENTERIC TAB PO SCH (07:48)
[2018-09-17] MEDS: VITAMIN D 1,000 INTERNATIONAL UNITS TABLET PO SCH (07:48)
[2018-09-17] MEDS: CARVedilol 12.5 MG TAB PO SCH ×2 (07:48→22:00)
[2018-09-17] MEDS: PREGABALIN 75 MG CAP(LYRICA) PO SCH ×2 (07:48→20:47)
[2018-09-17] MEDS: POTASSIUM CHLORIDE 10 MEQ SR TABLET PO SCH (07:48)
[2018-09-17] MEDS: DOCUSATE SODIUM 100 MG CAP PO SCH ×2 (07:48→20:49)
[2018-09-17] MEDS: OMEPRAZOLE 20 MG CAP PO SCH (07:48)
[2018-09-17] MEDS: buPROPion **XL** TABLET 150MG (WELLBUTRIN XL) PO SCH (07:53)
[2018-09-17] MEDS ORDERED: VANCOMYCIN HCL 750 MG, VIAL MATE ADAPTER 1 EACH in D5W 250 ML IV SCH (11:00)
--- NOTE | 2018-09-17 11:38 | PHACANCOPD ---
PHARMACY VANCOMYCIN DOSING Pt Demographics Demographics Patient Age:52 , Weight:175.450 , Gender: female Adjusted Body Weight Date: 09/16/18, Adjusted Body Weight: [114] Kg Events Past 24 Hours Events Past 24 Hours: NO: Dialysis, Diuretic Therapy, Change in CrCl, Fever, Elevation in WBC, Pending Diagnostics, Pending Procedures, Other Vancomycin Vancomycin indication: SKIN AND SOFT TISSUE INFECTION Vancomycin Target Ranges: 15-20 mcg/ml Vancomycin Load Y/N: Yes Load Dose Date Time Vancomycin Load Dose: 2G Date: 09/16/18 Time: 7 Vancomycin Dose Date: 09/16/18. Current Vancomycin Dose: [1G IV Q8H] Intermittent Dosing?: No Labs Labs Vital Signs Label Value Date Time Patient Temperature 98.2 degrees F 09/17/18 0600 Temperature Source Temporal 09/17/18 0600 Patient Temperature 98.1 degrees F 09/16/18 2200 Temperature Source Temporal 09/16/18 2200 Patient Temperature 97.7 degrees F 09/16/18 1400 Temperature Source Temporal 09/16/18 1400 Item Value Date Time White Blood Count 2.2 10^3/uL L 09/17/18 0554 White Blood Count 2.6 10^3/uL L 09/16/18 0434 Creatinine 1.09 MG/DL 09/17/18 0554 Creatinine 1.17 MG/DL 09/16/18 0434 C-Reactive Protein, Quantitative 1.01 MG/DL H 09/16/18 0434 Vancomycin Level Trough 20.8 UG/ML H 09/17/18 0554 Micro Microbiology 09/16/18 Blood Culture - Preliminary, Resulted No growth after 24 hours . All specim... 09/16/18 MRSA Screen - Final, Complete 09/16/18 Wound Culture, Received Pending Creatinine Clearance Date:09/16/18. Creatinine Clearance: [~102ML/MIN]. Pending Labs VANCOMYCIN TROUGH 09/17/18@06 Assessment and Plan Maintaining Current Dose?: No Reason for dose change: Trough too high Pharmacist Note Pharmacist Note 09/17/18: Trough today resulted at 20.8mcg/ml. This is slightly high. Because the pt is obese and therefore likely to accumulate quickly I have lowered the dose slightly. I have adjusted the dose to Vanco 1250mg Q12H@1100. I feel this will give the patient more time to clear the med between doses. I have scheduled a trough tomorrow to make sure new dose is appropriate. We will continue to monitor and adjust dose as needed. Date: 09/16/18. Pharmacist note: PT is a 52 year old female being treated for a skin/soft tissue infection goal trough 15-20mcg/ml. The patient was last treated with vancomycin here at [facility] in August 2018. To achieve goal a 2g loading dose was started 09/16/18 @07:00. Maintenance therapy will consist of 1g iv every 8 hours starting 09/16/18 @15. A trough is scheduled for 09/17/18 @06. We will continue to monitor and adjust dose as needed. [facility] Sep 17, 2018 11:38
[2018-09-17] MEDS ORDERED: VANCOMYCIN HCL 500 MG in D5W MINI-BAG PLUS 100 ML IV SCH (12:00)
[2018-09-17] MEDS ORDERED: LIDOCAINE 1% MDV 20ML VIAL As Ordered ONE (13:43)
[2018-09-17 14:00] VITALS: BP 134/82
[2018-09-17] MEDS: SODIUM CHLORIDE 0.9% INJ 10 ML SYR IV SCH (17:09)
--- NOTE | 2018-09-17 18:24 | REP ---
Procedure: Mid line insertion with Site-Rite The procedure was performed under the direct supervision of Dr. Patel. The risks and benefits of the procedure were explained to the patient and informed consent was obtained. The right basilic vein was localized using ultrasound guidance. The skin was prepped and draped in a sterile fashion. 1% lidocaine was used as a local anesthetic. Using ultrasound guidance the basilic vein was cannulated and a 0.018 guidewire was inserted. The needle was removed and a 4.5 Taiwanese dilator and peel-away sheath was inserted over the guide wire. A 4.5 Taiwanese single lumen catheter was cut to length of 16.5 cm. The dilator was removed and the catheter was inserted over the guide wire. The peel-away sheath was removed and the catheter was flushed with heparinized saline as per Hospital protocol. The catheter was affixed to the skin and a sterile dressing was applied. The patient tolerated the procedure well and there were no immediate complications. Reviewed by JOSY Meza 09/17/2018 04:27 P Electronically Signed by Juan Alberto Patel MD 09/17/2018 06:15 P
--- NOTE | 2018-09-17 19:09 | IPN ---
DATE: 09/17/2018 SUBJECTIVE: Patient seen and examined in the room today. Patient continues to complain about significant discomfort around the left hip, where she had recurrence of the cellulitis. Patient continues to complain of intermittent drain from the wounds. Patient is also noted to have new wound breakage located at the left foot, and patient started to see some drainage coming out of the wound also. Denies any fevers or chills. OBJECTIVE: VITAL SIGNS: Temperature is 98.2, pulse 76, respirations 19, blood pressure 122/60, pulse oximetry 95% in room air. GENERAL: Morbidly obese. Patient is alert and awake. HEENT: Normocephalic, atraumatic. Extraocular motor grossly intact. CARDIOVASCULAR: Positive S1, S2, regular rate. LUNGS: Clear to auscultation bilaterally. ABDOMEN: Soft. Bowel sounds present. MUSCULOSKELETAL: Patient had an open wound with scattered scab located left hip. There is erythema, swelling, and warmth noted around the wound. Very tender to palpation. No active drainage noted during examination. Patient also noted to have a new small opening wound located at the left foot. There is drainage noted on the foam dressing, which was just placed several hours ago. No foul smelling noted. No significant lower extremity edema appreciated. WBC is 2.3, hemoglobin 10.9, hematocrit 25.6, platelet count is 146. Sodium 135, potassium 3.9, chloride 101, carbon dioxide 30, BUN 30, creatinine 1.09, GFR is 56.3, fasting glucose 226, calcium 8.3. ASSESSMENT AND PLAN: 1. Recurrent cellulitis. Patient had a recent hospitalization. Record reviewed. We have obtained the culture from the wound near the left hip. There is a new wound noted on the left foot. We will still followup with the new wound culture. We will interpret the result with caution, because patient has been initiated on broad-spectrum intravenous (IV) antibiotics since admission. 2. Diabetes, on Levemir, on insulin sliding scale, on consistent-carbohydrate diet. 3. Diastolic congestive heart failure. No sign of fluid overload. At this moment, we will continue to watch intake and output and daily weight. Patient is on spironolactone, on Bumex. 4. Chronic obstructive pulmonary disease (COPD). No exacerbation at this moment. Continue to monitor. 5. Pulmonary hypertension, on diuretics. 6. Cirrhosis secondary to nonalcoholic fatty liver disease, on Bumex, spironolactone, as-needed lactulose, rifaximine. 7. Obstructive sleep apnea (RADHA). Patient is not compliant with continuous positive airway pressure (CPAP). On RADHA protocol. 8. Coronary artery disease, on aspirin. 9. Deep vein thrombosis (DVT) prophylaxis, on heparin.
[2018-09-17] MEDS: rOPINIRole 2MG TAB PO PRN (20:48)
[2018-09-17] MEDS: MONTELUKAST 10 MG TAB PO SCH (20:48)
[2018-09-17] MEDS: MAGNESIUM OXIDE 400 MG TAB (MAG-OX) PO SCH (20:49)
[2018-09-17 22:00] VITALS: BP 131/63
[2018-09-17] MEDS: HEPARIN SOD (PORCINE) 5000 UNITS/ML VIAL SQ SCH (22:02)
[2018-09-17] MEDS: SODIUM CHLORIDE 0.9% INJ 10 ML SYR IV PRN (22:03)
[2018-09-18] MEDS: ceFAZolin SOD 1 GM in D5W MINI-BAG PLUS 50 ML IV SCH (05:00)
[2018-09-18] MEDS: HEPARIN SOD (PORCINE) 5000 UNITS/ML VIAL SQ SCH ×3 (05:01→21:21)
[2018-09-18] MEDS: SODIUM CHLORIDE 0.9% INJ 10 ML SYR IV SCH ×2 (05:01→17:33)
[2018-09-18 06:00] VITALS: BP 140/63
[2018-09-18 07:08] LABS: HEMATOCRIT 25.5 % (36.0-47.0); HEMOGLOBIN 8.1 g/dl (12.0-15.5); MEAN CORPUSCULAR HEMOGLOBIN 26.2 pg (27.0-33.0); MEAN CORPUSCULAR HGB CONC 31.8 g/dl (32.0-36.5); MEAN CORPUSCULAR VOLUME 82.5 fl (80.0-96.0); PLATELET COUNT, AUTOMATED 163 10^3/uL (150-450); RED BLOOD COUNT 3.09 10^6/uL (4.00-5.40); WHITE BLOOD COUNT 2.2 10^3/uL (4.0-10.0)
[2018-09-18 07:29] LABS: CREATININE FOR GFR 1.15 MG/DL (0.55-1.30); POTASSIUM SERUM 3.7 MEQ/L (3.5-5.1)
[2018-09-18] MEDS: oxyCODONE 5MG TAB PO PRN ×3 (08:10→21:39)
[2018-09-18] MEDS: rifAXIMin 550 MG TAB (XIFAXAN) PO SCH ×2 (08:11→21:23)
[2018-09-18] MEDS: BUMETANIDE 1 MG TAB PO SCH ×2 (08:11→21:23)
[2018-09-18] MEDS: CARVedilol 12.5 MG TAB PO SCH ×2 (08:11→21:22)
[2018-09-18] MEDS: ASPIRIN 81 MG ENTERIC TAB PO SCH (08:11)
[2018-09-18] MEDS: PREGABALIN 75 MG CAP(LYRICA) PO SCH ×2 (08:12→21:23)
[2018-09-18] MEDS: SPIRONOLACTONE 50 MG TAB PO SCH (08:12)
[2018-09-18] MEDS: OMEPRAZOLE 20 MG CAP PO SCH (08:12)
[2018-09-18] MEDS: DOCUSATE SODIUM 100 MG CAP PO SCH ×2 (08:12→21:22)
[2018-09-18] MEDS: VITAMIN D 1,000 INTERNATIONAL UNITS TABLET PO SCH (08:12)
[2018-09-18] MEDS: POTASSIUM CHLORIDE 10 MEQ SR TABLET PO SCH (08:12)
[2018-09-18] MEDS: DICYCLOMINE 10 MG CAP PO SCH ×4 (08:12→21:22)
[2018-09-18] MEDS: LOSARTAN 50 MG TAB PO SCH (08:12)
[2018-09-18] MEDS: LEVEMIR (INSULIN DETEMIR) 1 UNITS/0.01ML SC SCH ×2 (08:13→21:21)
[2018-09-18] MEDS: HumaLOG INSULIN (NovoLOG) PER UNIT SC SCH ×3 (08:13→17:32)
[2018-09-18] MEDS: buPROPion **XL** TABLET 150MG (WELLBUTRIN XL) PO SCH (08:25)
[2018-09-18] MEDS: PIPERACILLIN/TAZOBACTAM SOD 3.375 GM in D5W MINI-BAG PLUS 50 ML IV SCH ×3 (08:25→21:21)
[2018-09-18] MEDS: rOPINIRole 2MG TAB PO PRN ×2 (10:27→21:38)
[2018-09-18 14:00] VITALS: BP 127/60
[2018-09-18] MEDS: diphenhydrAMINE 25 MG CAP PO PRN ×2 (14:54→22:51)
--- NOTE | 2018-09-18 16:16 | IPNPDOC ---
Text Note Date of Service The patient was seen on 09/18/18. NOTE SUBJECTIVE: Patient is seen and examined in the room today. Patient continues experiencing discomfort from left hip wound. Denies active discharge from left hip wound. Left foot wound continues having intermittent bloody drainage. Denies any fevers or chills. OBJECTIVE: VITAL SIGNS: Listed below. GENERAL: Morbidly obese. Patient is alert and awake. HEENT: Normocephalic, atraumatic. Extraocular motor grossly intact. CARDIOVASCULAR: Positive S1, S2, regular rate. LUNGS: Clear to auscultation bilaterally. ABDOMEN: Soft. Bowel sounds present. MUSCULOSKELETAL: Open wound with scattered scab located left hip. Positive erythema, swelling, and warmth noted around the wound. Very tender to palpation. No active drainage noted. Small opening wound located at the left foot. No foul smelling noted. No significant lower extremity edema appreciated. LABORATORY: Listed below ASSESSMENT AND PLAN: #. Recurrent cellulitis. - Patient had a recent hospitalization. Record reviewed. - Culture obtained from the wound near the left hip. Preliminary report showed pseudomonas and corynebacterium. On zosyn. - Wound culture ordered from left foot. #. Diabetes, on Levemir, on insulin sliding scale, on consistent-carbohydrate diet. #. Diastolic congestive heart failure. - No sign of fluid overload. Continue to watch intake and output and daily weight. - Patient is on spironolactone, on Bumex. #. Chronic obstructive pulmonary disease (COPD). - No exacerbation at this moment. Continue to monitor. #. Pulmonary hypertension, on diuretics. #. Cirrhosis secondary to nonalcoholic fatty liver disease - on Bumex, spironolactone, rifaximine and PRN lactulose,. #. Obstructive sleep apnea (RADHA). - Patient is not compliant with continuous positive airway pressure (CPAP). On RADHA protocol. #. Coronary artery disease, on aspirin. #. Deep vein thrombosis (DVT) prophylaxis, on heparin. VS,Fishbone, I+O VS, Fishbone, I+O Laboratory Tests 09/18/18 06:37 Red Blood Count 3.09 L, Mean Corpuscular Volume 82.5, Mean Corpuscular Hemoglobin 26.2 L, Mean Corpuscular Hemoglobin Concent 31.8 L, Red Cell Distribution Width 17.7 H, Calcium Level 9.0 Vital Signs Date Time Temp Pulse Resp B/P (MAP) Pulse Ox O2 Delivery O2 Flow Rate FiO2 09/18/18 15:24 16 09/18/18 14:00 97.9 70 127/60 (82) 96 09/18/18 05:38 Room Air I&O- Last 24 Hours up to 6 AM 09/18/18 06:00 Intake Total 2815 ml Output Total 3800 ml Balance -985 ml JUANJO ZAVALETA DO Sep 18, 2018 16:16
[2018-09-18] MEDS: MAGNESIUM OXIDE 400 MG TAB (MAG-OX) PO SCH (21:23)
[2018-09-18] MEDS: MONTELUKAST 10 MG TAB PO SCH (21:23)
[2018-09-18] MEDS: SODIUM CHLORIDE 0.9% INJ 10 ML SYR IV PRN (21:25)
[2018-09-18 22:00] VITALS: BP 139/62
[2018-09-19] MEDS: SODIUM CHLORIDE 0.9% INJ 10 ML SYR IV SCH ×2 (02:46→17:44)
[2018-09-19] MEDS: PIPERACILLIN/TAZOBACTAM SOD 3.375 GM in D5W MINI-BAG PLUS 50 ML IV SCH ×4 (02:46→21:17)
[2018-09-19] MEDS: HEPARIN SOD (PORCINE) 5000 UNITS/ML VIAL SQ SCH ×3 (05:46→21:15)
[2018-09-19 06:00] VITALS: BP 119/60
[2018-09-19 06:31] LABS: HEMATOCRIT 27.6 % (36.0-47.0); HEMOGLOBIN 8.6 g/dl (12.0-15.5); MEAN CORPUSCULAR HEMOGLOBIN 25.9 pg (27.0-33.0); MEAN CORPUSCULAR HGB CONC 31.2 g/dl (32.0-36.5); MEAN CORPUSCULAR VOLUME 83.1 fl (80.0-96.0); PLATELET COUNT, AUTOMATED 175 10^3/uL (150-450); RED BLOOD COUNT 3.32 10^6/uL (4.00-5.40); WHITE BLOOD COUNT 2.6 10^3/uL (4.0-10.0)
[2018-09-19 06:47] LABS: CREATININE FOR GFR 1.22 MG/DL (0.55-1.30); GLOMERULAR FILTRATION RATE 49.5 (>51); POTASSIUM SERUM 4.1 MEQ/L (3.5-5.1)
[2018-09-19] MEDS: HumaLOG INSULIN (NovoLOG) PER UNIT SC SCH ×3 (07:23→17:44)
[2018-09-19] MEDS: rifAXIMin 550 MG TAB (XIFAXAN) PO SCH ×2 (08:33→21:15)
[2018-09-19] MEDS: oxyCODONE 5MG TAB PO PRN ×2 (08:33→21:16)
[2018-09-19] MEDS: diphenhydrAMINE 25 MG CAP PO PRN ×2 (08:33→21:15)
[2018-09-19] MEDS: DOCUSATE SODIUM 100 MG CAP PO SCH ×2 (08:34→21:15)
[2018-09-19] MEDS: VITAMIN D 1,000 INTERNATIONAL UNITS TABLET PO SCH (08:34)
[2018-09-19] MEDS: OMEPRAZOLE 20 MG CAP PO SCH (08:34)
[2018-09-19] MEDS: BUMETANIDE 1 MG TAB PO SCH (08:34)
[2018-09-19] MEDS: ASPIRIN 81 MG ENTERIC TAB PO SCH (08:34)
[2018-09-19] MEDS: POTASSIUM CHLORIDE 10 MEQ SR TABLET PO SCH (08:34)
[2018-09-19] MEDS: DICYCLOMINE 10 MG CAP PO SCH ×4 (08:34→21:15)
[2018-09-19] MEDS: SPIRONOLACTONE 50 MG TAB PO SCH (08:35)
[2018-09-19] MEDS: PREGABALIN 75 MG CAP(LYRICA) PO SCH ×2 (08:35→21:17)
[2018-09-19] MEDS: CARVedilol 12.5 MG TAB PO SCH ×2 (08:35→21:20)
[2018-09-19] MEDS: LEVEMIR (INSULIN DETEMIR) 1 UNITS/0.01ML SC SCH ×2 (08:36→21:17)
[2018-09-19] MEDS: LOSARTAN 50 MG TAB PO SCH (08:36)
[2018-09-19] MEDS: buPROPion **XL** TABLET 150MG (WELLBUTRIN XL) PO SCH (08:38)
[2018-09-19] MEDS: rOPINIRole 2MG TAB PO PRN (12:47)
--- NOTE | 2018-09-19 15:25 | IPNPDOC ---
Text Note Date of Service The patient was seen on 09/19/18. NOTE SUBJECTIVE: Patient is seen and examined in the room today. Patient continues experiencing discomfort from left hip wound. She still has significant tenderness at left hip. No active drainage noted from left foot. Denies any fevers or chills. OBJECTIVE: VITAL SIGNS: Listed below. GENERAL: Morbidly obese. Patient is alert and awake. HEENT: Normocephalic, atraumatic. Extraocular motor grossly intact. CARDIOVASCULAR: Positive S1, S2, regular rate. LUNGS: Clear to auscultation bilaterally. ABDOMEN: Soft. Bowel sounds present. MUSCULOSKELETAL: Open wound with scattered scab located left hip without active discharge. Positive erythema, swelling, and warmth noted around the wound. sizing machine tender to palpation. Small wound located at the left foot covered with scab. Erythema around the small wound is improving. No significant lower extremity edema appreciated. LABORATORY: Listed below ASSESSMENT AND PLAN: #. Recurrent cellulitis. - Patient had a recent hospitalization. Record reviewed. - Culture obtained from the wound near the left hip. Report showed pseudomonas, E Faecalis and corynebacterium. On zosyn. - Wound culture from left foot is pending. # RUBY - Input and output reviewed. Patient has had significant net negative fluid balance. Will hold diuretics. #. Diabetes, on Levemir, on insulin sliding scale, on consistent-carbohydrate diet. #. Diastolic congestive heart failure. - No sign of fluid overload. Continue to watch intake and output and daily we ight. - Diuretic on hold for RUBY. #. Chronic obstructive pulmonary disease (COPD). - No exacerbation at this moment. Continue to monitor. #. Pulmonary hypertension, on diuretics. #. Cirrhosis secondary to nonalcoholic fatty liver disease - rifaximine and PRN lactulose. Bumex and spironolactone on hold for RUBY. #. Obstructive sleep apnea (RADHA). - Patient is not compliant with continuous positive airway pressure (CPAP). On RADHA protocol. #. Coronary artery disease, on aspirin. #. Deep vein thrombosis (DVT) prophylaxis, on heparin. VS,Fishbone, I+O VS, Fishbone, I+O Laboratory Tests 09/19/18 06:01 Red Blood Count 3.32 L, Mean Corpuscular Volume 83.1, Mean Corpuscular Hemoglobin 25.9 L, Mean Corpuscular Hemoglobin Concent 31.2 L, Red Cell Distribution Width 17.7 H, Calcium Level 9.0 Vital Signs Date Time Temp Pulse Resp B/P (MAP) Pulse Ox O2 Delivery O2 Flow Rate FiO2 09/19/18 09:03 18 09/19/18 08:35 77 122/65 09/19/18 08:00 96 Room Air 09/19/18 06:00 98.7 I&O- Last 24 Hours up to 6 AM 09/19/18 06:00 Intake Total 760 ml Output Total 3800 ml Balance -3040 ml JUANJO ZAVALETA DO Sep 19, 2018 15:25
[2018-09-19] MEDS: MONTELUKAST 10 MG TAB PO SCH (21:15)
[2018-09-19] MEDS: MAGNESIUM OXIDE 400 MG TAB (MAG-OX) PO SCH (21:16)
[2018-09-20] MEDS: PIPERACILLIN/TAZOBACTAM SOD 3.375 GM in D5W MINI-BAG PLUS 50 ML IV SCH ×3 (02:56→14:46)
[2018-09-20] MEDS: oxyCODONE 5MG TAB PO PRN ×3 (05:49→21:44)
[2018-09-20] MEDS: HEPARIN SOD (PORCINE) 5000 UNITS/ML VIAL SQ SCH ×3 (05:50→21:45)
[2018-09-20] MEDS: SODIUM CHLORIDE 0.9% INJ 10 ML SYR IV SCH ×2 (05:50→17:20)
[2018-09-20] MEDS: diphenhydrAMINE 25 MG CAP PO PRN (05:50)
[2018-09-20 06:00] VITALS: BP 125/58
[2018-09-20 06:23] LABS: HEMATOCRIT 25.3 % (36.0-47.0); HEMOGLOBIN 7.8 g/dl (12.0-15.5); MEAN CORPUSCULAR HEMOGLOBIN 25.9 pg (27.0-33.0); MEAN CORPUSCULAR HGB CONC 30.8 g/dl (32.0-36.5); MEAN CORPUSCULAR VOLUME 84.1 fl (80.0-96.0); PLATELET COUNT, AUTOMATED 140 10^3/uL (150-450); RED BLOOD COUNT 3.01 10^6/uL (4.00-5.40); WHITE BLOOD COUNT 2.4 10^3/uL (4.0-10.0)
[2018-09-20 06:45] LABS: CALCIUM LEVEL 9.2 MG/DL (8.5-10.1); CREATININE FOR GFR 1.31 MG/DL (0.55-1.30); GLOMERULAR FILTRATION RATE 45.6 (>51)
--- NOTE | 2018-09-20 08:26 | REP ---
Clinical: Acute renal failure. Technique: Real time chester scale and color evaluation using curved array transducer. Findings: Bilateral kidneys are normal in contour, size, echogenicity, and reniform shape without hydronephrosis, nephrolithiasis, cystic or renal mass lesion. Right kidney measures 12.8 x 6.4 x 5.8 cm. Left kidney measures 13.0 x 6.4 x 5.6 cm. No perinephric fluid collections. Bladder is unremarkable. Impression: Essentially normal age appropriate examination. No hydronephrosis. Electronically Signed by Edward Schmidt MD 09/20/2018 08:17 A
[2018-09-20] MEDS: LEVEMIR (INSULIN DETEMIR) 1 UNITS/0.01ML SC SCH ×2 (09:00→20:23)
[2018-09-20] MEDS: VITAMIN D 1,000 INTERNATIONAL UNITS TABLET PO SCH (10:22)
[2018-09-20] MEDS: rifAXIMin 550 MG TAB (XIFAXAN) PO SCH ×2 (10:22→20:23)
[2018-09-20] MEDS: buPROPion **XL** TABLET 150MG (WELLBUTRIN XL) PO SCH (10:23)
[2018-09-20] MEDS: PREGABALIN 75 MG CAP(LYRICA) PO SCH ×2 (10:24→20:21)
[2018-09-20] MEDS: ASPIRIN 81 MG ENTERIC TAB PO SCH (10:25)
[2018-09-20] MEDS: OMEPRAZOLE 20 MG CAP PO SCH (10:25)
[2018-09-20] MEDS: CARVedilol 12.5 MG TAB PO SCH ×2 (10:28→20:23)
[2018-09-20] MEDS: DOCUSATE SODIUM 100 MG CAP PO SCH ×2 (10:31→20:21)
[2018-09-20] MEDS: LOSARTAN 50 MG TAB PO SCH (10:31)
[2018-09-20] MEDS: POTASSIUM CHLORIDE 10 MEQ SR TABLET PO SCH (10:32)
[2018-09-20] MEDS: DICYCLOMINE 10 MG CAP PO SCH ×4 (10:36→20:21)
[2018-09-20] MEDS: HumaLOG INSULIN (NovoLOG) PER UNIT SC SCH ×3 (10:41→17:20)
[2018-09-20 11:24] LABS: INR 1.11; PROTHROMBIN TIME 14.4 SECONDS (12.1-14.4)
[2018-09-20 11:27] LABS: ALBUMIN 2.5 GM/DL (3.2-5.2); BILIRUBIN,DIRECT 0.2 MG/DL (0.0-0.2); BILIRUBIN,TOTAL 0.5 MG/DL (0.2-1.0); TOTAL PROTEIN 6.7 GM/DL (6.4-8.2)
[2018-09-20] MEDS ORDERED: PILL CRUSHER/CUTTER 1 EACH XX PRN (11:30)
[2018-09-20 11:46] LABS: FOLATE 9.6 NG/ML (>5.4)
[2018-09-20 12:18] LABS: CREATININE,RANDOM URINE 40.2 MG/DL
[2018-09-20 14:00] VITALS: BP 139/66
--- NOTE | 2018-09-20 16:49 | IPNPDOC ---
Text Note Date of Service The patient was seen on 09/20/18. NOTE SUBJECTIVE: Patient is seen and examined in the room today. Patient states the redness and swelling around her left food wound is improving. She is not sure the left hip wound is improving. around Patient continues experiencing discomfort from left hip wound. She still has significant tenderness at left hip. No active drainage noted from left foot. Denies any fevers or chills. OBJECTIVE: VITAL SIGNS: Listed below. GENERAL: Morbidly obese. Patient is alert and awake. HEENT: Normocephalic, atraumatic. Extraocular motor grossly intact. CARDIOVASCULAR: Positive S1, S2, regular rate. LUNGS: Clear to auscultation bilaterally. ABDOMEN: Soft. Bowel sounds present. MUSCULOSKELETAL: Wound with scattered scab located left hip without active discharge. Positive erythema, swelling, warmth and severe tenderness noted around the left hip wound. Small wound located at the left foot covered with scab. Erythema and swelling around the small wound is improving. No significant lower extremity edema appreciated. LABORATORY: Listed below ASSESSMENT AND PLAN: #. Recurrent cellulitis. - Patient had a recent hospitalization. Record reviewed. - Culture obtained from the wound near the left hip. Report showed pseudomonas, E Faecalis and corynebacterium. Improving. Antibiotic switched from IV zosyn to PO Levaquin. - Wound culture from left foot demonstrated corynebacterium. # RUBY - Input and output reviewed. Patient has had significant net negative fluid balance. Will hold diuretics. - Renal US is negative. Follow with urine electrolytes and UA. # Anemia - Anemia workup ordered. Patient has iron deficiency. Peripheral smear demonstrates anemia of chronic disease. Colonoscopy on Feb 2018 and Jun 2016 demonstrated internal hemorrhoid. - Transfusion consent obtained in case patient becomes symptomatic. #. Diabetes, on Levemir, on insulin sliding scale, on consistent-carbohydrate diet. #. Diastolic congestive heart failure. - No sign of fluid overload. Continue to watch intake and output and daily weight. - Diuretic on hold for RUBY. #. Chronic obstructive pulmonary disease (COPD). - No exacerbation at this moment. Continue to monitor. #. Pulmonary hypertension, - Diuretics are on hold due to RUBY. #. Cirrhosis secondary to nonalcoholic fatty liver disease - rifaximine and PRN lactulose. Bumex and spironolactone on hold for RUBY. #. Obstructive sleep apnea (RADHA). - Patient is not compliant with continuous positive airway pressure (CPAP). On RADHA protocol. #. Coronary artery disease, on aspirin. #. Deep vein thrombosis (DVT) prophylaxis, on heparin. VS,Fishbone, I+O VS, Fishbone, I+O Laboratory Tests 09/20/18 05:53 Red Blood Count 3.01 L, Mean Corpuscular Volume 84.1, Mean Corpuscular Hemoglobin 25.9 L, Mean Corpuscular Hemoglobin Concent 30.8 L, Red Cell Distribution Width 17.7 H Vital Signs Date Time Temp Pulse Resp B/P (MAP) Pulse Ox O2 Delivery O2 Flow Rate FiO2 09/20/18 15:50 16 09/20/18 14:00 76 139/66 (90) 98 09/20/18 09:00 Room Air 09/20/18 06:00 98.9 I&O- Last 24 Hours up to 6 AM 09/20/18 06:00 Intake Total 2450 ml Output Total 5600 ml Balance -3150 ml JUANJO ZAVALETA DO Sep 20, 2018 16:49
[2018-09-20] MEDS: LevoFLOXacin 500 MG TABLET PO SCH (17:19)
[2018-09-20 18:40] LABS: HEMATOCRIT 27.7 % (36.0-47.0); HEMOGLOBIN 8.6 g/dl (12.0-15.5); MEAN CORPUSCULAR HEMOGLOBIN 26.5 pg (27.0-33.0); MEAN CORPUSCULAR VOLUME 85.2 fl (80.0-96.0); PLATELET COUNT, AUTOMATED 147 10^3/uL (150-450); RED BLOOD COUNT 3.25 10^6/uL (4.00-5.40); WHITE BLOOD COUNT 2.3 10^3/uL (4.0-10.0)
--- NOTE | 2018-09-20 18:48 | REP ---
Duplex extremity venous ultrasound: Left lower extremity. History: Evaluate venous flow. Question DVT. Rule out abscess or hematoma. Findings: The deep veins are anechoic and fully compressible from the groin to the popliteal fossa in the left lower extremity. Color flow imaging is homogeneous. Spectral Doppler interrogation demonstrates intact respiratory variation in flow and normal manual augmentation of flow. There is no evidence of deep vein thrombosis. Impression: Negative left lower extremity duplex venous ultrasound. No evidence of deep vein thrombosis. Exam was somewhat inhibited by patient body habitus. No evidence of abscess or abnormal fluid collection. Electronically Signed by Robbie Carvalho MD 09/20/2018 06:40 P
--- NOTE | 2018-09-20 18:49 | REP ---
Soft-tissue ultrasound left hip region. History: Rule out abscess. Findings: Scanning in the area of the left hip wound and adjacent soft tissues show no abnormal fluid collection to suggest abscess. Soft tissue edema is seen diffusely. Impression: No abscess seen. Electronically Signed by Robbie Carvalho MD 09/20/2018 06:40 P
[2018-09-20 19:08] LABS: CALCIUM LEVEL 9.1 MG/DL (8.5-10.1); CREATININE FOR GFR 1.16 MG/DL (0.55-1.30); GLOMERULAR FILTRATION RATE 52.4 (>51); POTASSIUM SERUM 4.2 MEQ/L (3.5-5.1)
[2018-09-20] MEDS: FERROUS SULFATE 325MG TAB PO SCH (20:21)
[2018-09-20] MEDS: MAGNESIUM OXIDE 400 MG TAB (MAG-OX) PO SCH (20:22)
[2018-09-20] MEDS: MONTELUKAST 10 MG TAB PO SCH (20:23)
[2018-09-20] MEDS: rOPINIRole 2MG TAB PO PRN (21:44)
[2018-09-20 22:00] VITALS: BP 159/72
[2018-09-21] MEDS: HEPARIN SOD (PORCINE) 5000 UNITS/ML VIAL SQ SCH ×3 (05:36→21:24)
[2018-09-21] MEDS: SODIUM CHLORIDE 0.9% INJ 10 ML SYR IV SCH ×2 (05:39→17:56)
[2018-09-21 06:00] VITALS: BP 136/65
[2018-09-21 06:26] LABS: HEMATOCRIT 27.3 % (36.0-47.0); HEMOGLOBIN 8.3 g/dl (12.0-15.5); MEAN CORPUSCULAR HEMOGLOBIN 25.8 pg (27.0-33.0); MEAN CORPUSCULAR HGB CONC 30.4 g/dl (32.0-36.5); MEAN CORPUSCULAR VOLUME 84.8 fl (80.0-96.0); PLATELET COUNT, AUTOMATED 145 10^3/uL (150-450); RED BLOOD COUNT 3.22 10^6/uL (4.00-5.40); WHITE BLOOD COUNT 2.5 10^3/uL (4.0-10.0)
[2018-09-21 06:48] LABS: CALCIUM LEVEL 8.9 MG/DL (8.5-10.1); CREATININE FOR GFR 1.13 MG/DL (0.55-1.30); POTASSIUM SERUM 4.1 MEQ/L (3.5-5.1)
[2018-09-21] MEDS: HumaLOG INSULIN (NovoLOG) PER UNIT SC SCH ×3 (08:11→17:56)
[2018-09-21] MEDS: FERROUS SULFATE 325MG TAB PO SCH ×2 (08:12→20:33)
[2018-09-21] MEDS: VITAMIN D 1,000 INTERNATIONAL UNITS TABLET PO SCH (08:12)
[2018-09-21] MEDS: OMEPRAZOLE 20 MG CAP PO SCH (08:12)
[2018-09-21] MEDS: LEVEMIR (INSULIN DETEMIR) 1 UNITS/0.01ML SC SCH ×2 (08:12→20:34)
[2018-09-21] MEDS: DOCUSATE SODIUM 100 MG CAP PO SCH ×2 (08:12→20:33)
[2018-09-21] MEDS: rifAXIMin 550 MG TAB (XIFAXAN) PO SCH ×2 (08:12→20:34)
[2018-09-21] MEDS: DICYCLOMINE 10 MG CAP PO SCH ×4 (08:13→20:33)
[2018-09-21] MEDS: CARVedilol 12.5 MG TAB PO SCH ×2 (08:13→20:34)
[2018-09-21] MEDS: PREGABALIN 75 MG CAP(LYRICA) PO SCH ×2 (08:13→20:33)
[2018-09-21] MEDS: POTASSIUM CHLORIDE 10 MEQ SR TABLET PO SCH (08:13)
[2018-09-21] MEDS: ASPIRIN 81 MG ENTERIC TAB PO SCH (08:14)
[2018-09-21] MEDS: LOSARTAN 50 MG TAB PO SCH (08:14)
[2018-09-21] MEDS: buPROPion **XL** TABLET 150MG (WELLBUTRIN XL) PO SCH (08:30)
[2018-09-21] MEDS: rOPINIRole 2MG TAB PO PRN ×2 (12:37→21:23)
[2018-09-21 14:00] VITALS: BP 168/70
[2018-09-21] MEDS: oxyCODONE 5MG TAB PO PRN ×2 (14:22→21:24)
--- NOTE | 2018-09-21 16:24 | IPNPDOC ---
Subjective Date Seen The patient was seen on 09/21/18. Subjective Chief Complaint/HPI Patient seen and examined at the bedside. Reports that her left lower extremity cellulitis is improving. Denies any acute overnight events. Objective Physical Examination General Exam: Positive: Alert, Cooperative, No Acute Distress ENT Exam: Positive: Atraumatic, Mucous membr. moist/pink Neck Exam: Negative: JVD Chest Exam: Positive: Clear to auscultation, Normal air movement Heart Exam: Positive: Rate Normal, Normal S1, Normal S2 Abdomen Exam: Positive: Soft; Negative: Tenderness Extremity Exam: Positive: Other (Left Hip notable for area of redness, and sca ling of skin. No superficial drainage. No tenderness to palpation. ROM of the hip intact); Negative: Tenderness Psych Exam: Positive: Oriented x 3 Assessment /Plan Plan/VTE VTE Prophylaxis Ordered?: Yes Plan Recurrent cellulitis. Wound Culture from the left extremtiy notable for Corynebacterium Species. Cont Levaquin Cellulitis improving RUBY 2/2 Above, resolved Normocytic Anemia Anemia workup notable for iron deficiency. Peripheral smear demonstrates anemia of chronic disease. Colonoscopy on Feb 2018 and Jun 2016 demonstrated internal hemorrhoid. No indication for transfusion at this time Diabetes Cont on Levemir, on insulin sliding scale, on consistent-carbohydrate diet Diastolic congestive heart failure. No sign of fluid overload. Continue to watch intake and output and daily weight Chronic obstructive pulmonary disease (COPD). Continue current meds. Hx of Pulmonary hypertension, Hx of Cirrhosis secondary to nonalcoholic fatty liver disease Cont rifaximine and prn lactulose F/U as outpatient Obstructive sleep apnea (RADHA). Patient not compliant with continuous positive airway pressure (CPAP). On RADHA protocol. Coronary artery disease Cont on Aspirin, Coreg, Losartan Migraine Headaches Cont Topamax Deep vein thrombosis (DVT) prophylaxis Heparin SC VS, I&O, 24H, Fishbone Vital Signs/I&O Vital Signs Date Time Temp Pulse Resp B/P (MAP) Pulse Ox O2 Delivery O2 Flow Rate FiO2 09/21/18 15:06 18 09/21/18 14:00 98.4 82 168/70 (102) 95 09/21/18 09:00 Room Air I&O- Last 24 Hours up to 6 AM 09/21/18 06:00 Intake Total 3700 ml Output Total 4190 ml Balance -490 ml Laboratory Data 24H LABS Laboratory Tests 2 09/20/18 17:02: Bedside Glucose (Misc Panel) 219H 09/20/18 17:57: Nucleated Red Blood Cells % (auto) 0.0, Anion Gap 3L, Glomerular Filtration Rate 52.4, Blood Urea Nitrogen 28H, Creatinine 1.16, Sodium Level 138, Potassium Level 4.2, Chloride Level 104, Carbon Dioxide Level 31, Calcium Level 9.1 09/20/18 19:32: Bedside Glucose (Misc Panel) 225H 09/21/18 06:06: Nucleated Red Blood Cells % (auto) 0.0, Anion Gap 4L, Glomerular Filtration Rate 54.0, Blood Urea Nitrogen 25H, Creatinine 1.13, Sodium Level 140, Potassium Lev el 4.1, Chloride Level 106, Carbon Dioxide Level 30, Calcium Level 8.9 09/21/18 11:40: Bedside Glucose (Misc Panel) 139H CBC/BMP Laboratory Tests 09/20/18 17:57 Red Blood Count 3.25 L, Mean Corpuscular Volume 85.2, Mean Corpuscular Hemoglobin 26.5 L, Mean Corpuscular Hemoglobin Concent 31.0 L, Red Cell Distribution Width 17.6 H, Calcium Level 9.1 09/21/18 06:06 Red Blood Count 3.22 L, Mean Corpuscular Volume 84.8, Mean Corpuscular Hemoglobin 25.8 L, Mean Corpuscular Hemoglobin Concent 30.4 L, Red Cell Distribution Width 17.3 H, Calcium Level 8.9 Microbiology Microbiology 09/16/18 Blood Culture - Final, Complete NO GROWTH AFTER 5 DAYS 09/16/18 MRSA Screen - Final, Complete 09/18/18 Wound Culture - Final, Complete Corynebacterium Species 09/16/18 Wound Culture - Final, Complete Corynebacterium Species Pseudomonas Aeruginosa Enterococcus Faecalis CASEY GAMING MD Sep 21, 2018 16:24
[2018-09-21] MEDS: LevoFLOXacin 500 MG TABLET PO SCH (17:55)
[2018-09-21] MEDS: diphenhydrAMINE 25 MG CAP PO PRN (18:01)
[2018-09-21] MEDS: TOPIRAMATE (TopAMAX) 25 MG TAB PO SCH (20:33)
[2018-09-21] MEDS: MAGNESIUM OXIDE 400 MG TAB (MAG-OX) PO SCH (20:33)
[2018-09-21] MEDS: MONTELUKAST 10 MG TAB PO SCH (20:34)
[2018-09-21 22:00] VITALS: BP 171/71
[2018-09-22] MEDS: HEPARIN SOD (PORCINE) 5000 UNITS/ML VIAL SQ SCH ×3 (05:27→21:17)
[2018-09-22] MEDS: SODIUM CHLORIDE 0.9% INJ 10 ML SYR IV SCH ×2 (05:27→18:28)
[2018-09-22 05:52] LABS: HEMATOCRIT 25.8 % (36.0-47.0); HEMOGLOBIN 7.8 g/dl (12.0-15.5); MEAN CORPUSCULAR HEMOGLOBIN 25.7 pg (27.0-33.0); MEAN CORPUSCULAR HGB CONC 30.2 g/dl (32.0-36.5); MEAN CORPUSCULAR VOLUME 84.9 fl (80.0-96.0); PLATELET COUNT, AUTOMATED 122 10^3/uL (150-450); RED BLOOD COUNT 3.04 10^6/uL (4.00-5.40); WHITE BLOOD COUNT 2.7 10^3/uL (4.0-10.0)
[2018-09-22 06:00] VITALS: BP 137/67
[2018-09-22 06:18] LABS: BLOOD UREA NITROGEN 21 MG/DL (7-18); CALCIUM LEVEL 9.2 MG/DL (8.5-10.1); CARBON DIOXIDE LEVEL 27 MEQ/L (21-32); CHLORIDE LEVEL 109 MEQ/L (98-107); CREATININE FOR GFR 1.03 MG/DL (0.55-1.30); GLOMERULAR FILTRATION RATE > 60.0 (>51); GLUCOSE, FASTING 146 MG/DL (70-100); POTASSIUM SERUM 4.4 MEQ/L (3.5-5.1); SODIUM LEVEL 140 MEQ/L (136-145)
[2018-09-22] MEDS: HumaLOG INSULIN (NovoLOG) PER UNIT SC SCH ×3 (08:40→18:29)
[2018-09-22] MEDS: rifAXIMin 550 MG TAB (XIFAXAN) PO SCH ×2 (08:41→21:18)
[2018-09-22] MEDS: FERROUS SULFATE 325MG TAB PO SCH ×2 (08:41→21:19)
[2018-09-22] MEDS: PREGABALIN 75 MG CAP(LYRICA) PO SCH ×2 (08:41→21:18)
[2018-09-22] MEDS: OMEPRAZOLE 20 MG CAP PO SCH (08:41)
[2018-09-22] MEDS: DOCUSATE SODIUM 100 MG CAP PO SCH ×2 (08:41→21:19)
[2018-09-22] MEDS: buPROPion **XL** TABLET 150MG (WELLBUTRIN XL) PO SCH (08:41)
[2018-09-22] MEDS: LOSARTAN 50 MG TAB PO SCH (08:43)
[2018-09-22] MEDS: CARVedilol 12.5 MG TAB PO SCH ×2 (08:44→21:18)
[2018-09-22] MEDS: ASPIRIN 81 MG ENTERIC TAB PO SCH (08:45)
[2018-09-22] MEDS: VITAMIN D 1,000 INTERNATIONAL UNITS TABLET PO SCH (08:45)
[2018-09-22] MEDS: LEVEMIR (INSULIN DETEMIR) 1 UNITS/0.01ML SC SCH ×2 (08:46→21:19)
[2018-09-22] MEDS: DICYCLOMINE 10 MG CAP PO SCH ×4 (09:00→21:18)
[2018-09-22] MEDS: BUMETANIDE 1 MG TAB PO SCH ×2 (09:06→21:17)
[2018-09-22] MEDS: diphenhydrAMINE 25 MG CAP PO PRN ×2 (09:08→21:16)
[2018-09-22] MEDS: SPIRONOLACTONE 50 MG TAB PO SCH (09:15)
[2018-09-22] MEDS: POTASSIUM CHLORIDE 10 MEQ SR TABLET PO SCH (09:16)
[2018-09-22] MEDS: rOPINIRole 2MG TAB PO PRN (10:20)
[2018-09-22] MEDS: oxyCODONE 5MG TAB PO PRN ×2 (11:40→21:17)
--- NOTE | 2018-09-22 13:29 | IPNPDOC ---
Subjective Date Seen The patient was seen on 09/22/18. Subjective Chief Complaint/HPI Patient seen and examined at the bedside. Reports that the cellulitis on her left hip and foot continues to improve. Objective Physical Examination General Exam: Positive: Alert, Cooperative, No Acute Distress ENT Exam: Positive: Atraumatic, Mucous membr. moist/pink Neck Exam: Negative: JVD Chest Exam: Positive: Clear to auscultation, Normal air movement Heart Exam: Positive: Rate Normal, Normal S1, Normal S2 Abdomen Exam: Positive: Soft; Negative: Tenderness Extremity Exam: Positive: Other (Left Hip notable for area of redness, and scaling of skin. Left foot noted to have decreased erythema, no tenderness to palpation. No superficial drainage. No tenderness to palpation. ROM of the left hip/ankle joint intact); Negative: Tenderness Psych Exam: Positive: Oriented x 3 Assessment /Plan Plan/VTE VTE Prophylaxis Ordered?: Yes Plan Recurrent cellulitis. Wound Culture from the left extremity notable for Corynebacterium Species. Cont Levaquin Cellulitis improving RUBY 2/2 Above, resolved Normocytic Anemia Anemia workup notable for iron deficiency. Peripheral smear demonstrates anemia of chronic disease. Colonoscopy on Feb 2018 and Jun 2016 demonstrated internal hemorrhoid. Patient states that she had a bone marrow biopsy as an outpatient for further work up, and was told that it was within normal limits No indication for transfusion at this time Cont to follow up as outpatient with Heme/Onc Diabetes Cont on Levemir, on insulin sliding scale, on consistent-carbohydrate diet Diastolic congestive heart failure. No sign of fluid overload. Continue to watch intake and output and daily weight Chronic obstructive pulmonary disease (COPD). Continue current meds. Hx of Pulmonary hypertension, Hx of Cirrhosis secondary to nonalcoholic fatty liver disease Cont rifaximine and prn lactulose F/U as outpatient Obstructive sleep apnea (RADHA). Patient not compliant with continuous positive airway pressure (CPAP). On RADHA protocol. Coronary artery disease Cont on Aspirin, Coreg, Losartan Migraine Headaches Cont Topamax Deep vein thrombosis (DVT) prophylaxis Heparin SC Dispo--anticipate D/C in 24-48hrs pending clinical improvement. VS, I&O, 24H, Fishbone Vital Signs/I&O Vital Signs Date Time Temp Pulse Resp B/P (MAP) Pulse Ox O2 Delivery O2 Flow Rate FiO2 09/22/18 11:40 16 09/22/18 08:44 77 137/67 09/22/18 06:00 98.1 92 09/21/18 23:00 Room Air I&O- Last 24 Hours up to 6 AM 09/22/18 06:00 Intake Total 3260 ml Output Total 3750 ml Balance -490 ml Laboratory Data 24H LABS Laboratory Tests 2 09/21/18 16:49: Bedside Glucose (Misc Panel) 221H 09/21/18 20:26: Bedside Glucose (Misc Panel) 199H 09/22/18 05:37: Nucleated Red Blood Cells % (auto) 0.0, Anion Gap 4L, Glomerular Filtration Rate > 60.0, Blood Urea Nitrogen 21H, Creatinine 1.03, Sodium Level 140, Potassium Level 4.4, Chloride Level 109H, Carbon Dioxide Level 27, Calcium Level 9.2 09/22/18 12:23: Bedside Glucose (Misc Panel) 192H CBC/BMP Laboratory Tests 09/22/18 05:37 Red Blood Count 3.04 L, Mean Corpuscular Volume 84.9, Mean Corpuscular Hemoglobin 25.7 L, Mean Corpuscular Hemoglobin Concent 30.2 L, Red Cell Distribution Width 17.4 H, Calcium Level 9.2 Microbiology Microbiology 09/16/18 Blood Culture - Final, Complete NO GROWTH AFTER 5 DAYS 09/16/18 MRSA Screen - Final, Complete 09/18/18 Wound Culture - Final, Complete Corynebacterium Species 09/16/18 Wound Culture - Final, Complete Corynebacterium Species Pseudomonas Aeruginosa Enterococcus Faecalis CASEY GAMING MD Sep 22, 2018 13:29
[2018-09-22 14:00] VITALS: BP 136/64
[2018-09-22] MEDS: LevoFLOXacin 500 MG TABLET PO SCH (18:28)
[2018-09-22] MEDS: TOPIRAMATE (TopAMAX) 25 MG TAB PO SCH (21:18)
[2018-09-22] MEDS: MONTELUKAST 10 MG TAB PO SCH (21:18)
[2018-09-22] MEDS: MAGNESIUM OXIDE 400 MG TAB (MAG-OX) PO SCH (21:19)
[2018-09-22 22:00] VITALS: BP 136/70
[2018-09-23] MEDS: SODIUM CHLORIDE 0.9% INJ 10 ML SYR IV SCH ×2 (05:31→18:53)
[2018-09-23] MEDS: HEPARIN SOD (PORCINE) 5000 UNITS/ML VIAL SQ SCH ×2 (05:31→13:21)
[2018-09-23 05:56] LABS: HEMATOCRIT 25.6 % (36.0-47.0); HEMOGLOBIN 7.9 g/dl (12.0-15.5); MEAN CORPUSCULAR HEMOGLOBIN 26.1 pg (27.0-33.0); MEAN CORPUSCULAR HGB CONC 30.9 g/dl (32.0-36.5); MEAN CORPUSCULAR VOLUME 84.5 fl (80.0-96.0); PLATELET COUNT, AUTOMATED 139 10^3/uL (150-450); RED BLOOD COUNT 3.03 10^6/uL (4.00-5.40); WHITE BLOOD COUNT 2.6 10^3/uL (4.0-10.0)
[2018-09-23 06:00] VITALS: BP 126/60
[2018-09-23 06:20] LABS: CALCIUM LEVEL 8.9 MG/DL (8.5-10.1); CREATININE FOR GFR 1.09 MG/DL (0.55-1.30); GLOMERULAR FILTRATION RATE 56.3 (>51); POTASSIUM SERUM 3.9 MEQ/L (3.5-5.1)
[2018-09-23] MEDS: DICYCLOMINE 10 MG CAP PO SCH ×3 (09:46→17:45)
[2018-09-23] MEDS: ASPIRIN 81 MG ENTERIC TAB PO SCH (09:46)
[2018-09-23] MEDS: HumaLOG INSULIN (NovoLOG) PER UNIT SC SCH ×3 (09:46→17:46)
[2018-09-23] MEDS: diphenhydrAMINE 25 MG CAP PO PRN (09:46)
[2018-09-23] MEDS: DOCUSATE SODIUM 100 MG CAP PO SCH (09:47)
[2018-09-23] MEDS: FERROUS SULFATE 325MG TAB PO SCH (09:47)
[2018-09-23] MEDS: BUMETANIDE 1 MG TAB PO SCH (09:47)
[2018-09-23] MEDS: rOPINIRole 2MG TAB PO PRN (09:47)
[2018-09-23] MEDS: CARVedilol 12.5 MG TAB PO SCH (09:51)
[2018-09-23] MEDS: oxyCODONE 5MG TAB PO PRN (09:53)
[2018-09-23] MEDS: LEVEMIR (INSULIN DETEMIR) 1 UNITS/0.01ML SC SCH (10:02)
[2018-09-23] MEDS: VITAMIN D 1,000 INTERNATIONAL UNITS TABLET PO SCH (10:03)
[2018-09-23 10:04] VITALS: BP 136/62
[2018-09-23] MEDS: POTASSIUM CHLORIDE 10 MEQ SR TABLET PO SCH (10:04)
[2018-09-23] MEDS: PREGABALIN 75 MG CAP(LYRICA) PO SCH (10:04)
[2018-09-23] MEDS: LOSARTAN 50 MG TAB PO SCH (10:04)
[2018-09-23] MEDS: OMEPRAZOLE 20 MG CAP PO SCH (10:04)
[2018-09-23] MEDS: rifAXIMin 550 MG TAB (XIFAXAN) PO SCH (10:05)
[2018-09-23] MEDS: buPROPion **XL** TABLET 150MG (WELLBUTRIN XL) PO SCH (10:05)
[2018-09-23] MEDS: SPIRONOLACTONE 50 MG TAB PO SCH (10:06)
[2018-09-23] MEDS ORDERED: TOPA50TA8 PO (12:20)
[2018-09-23] MEDS ORDERED: LEVA1TAB2 PO (12:20)
[2018-09-23] MEDS ORDERED: FERR1TAB8 PO (12:20)
[2018-09-23 14:00] VITALS: BP 159/71
[2018-09-23] MEDS: LevoFLOXacin 500 MG TABLET PO SCH (17:45)
--- NOTE | 2018-09-28 17:30 | DS.PDOC ---
Discharge Summary General Date of Admission Sep 16, 2018 at 05:56 Date of Discharge 09/23/18 Discharge Summary PROCEDURES PERFORMED DURING STAY: None. ADMITTING/DISCHARGE DIAGNOSES: Recurrent cellulitis Acute kidney injury Acute on Chronic Normocytic Anemia Pancytopenia Diabetes mellitus Diastolic congestive heart failure Liver cirrhosis secondary to nonalcoholic by liver disease Obstructive sleep apnea with noncompliance/nonadherence to CPAP therapy Coronary artery disease COMPLICATIONS/CHIEF COMPLAINT: Recurrent Cellulitis. HISTORY OF PRESENT ILLNESS: . 52-year-old female with past medical history of liver cirrhosis secondary to nonalcoholic fatty liver disease, diabetes mellitus, hypertension, diastolic congestive heart failure, depression, GERD, coronary artery disease, pulmonary hypertension, COPD, morbid obesity, obstructive sleep apnea with noncompliance of her CPAP presents to the ER with a chief complaint of increased erythema, swelling, and serosanguineous drainage from her left hip for the past 2 days. The patient states that she has been having this area of swelling which has progressively gotten worse with scab formation. She denies any trauma to the area. Of note, the patient has had multiple admissions here for cellulitis. She denied any complaints of fevers, chills, chest pain, palpitations, abdominal pain, or any nausea/vomiting/diarrhea. The patient was admitted to the hospitalist service for further evaluation and management. During hospitalization, the patient was started on empiric antibiotic therapy. One culture was notable for Corynebacterium stay she's. The patient's antibiotic therapy was is currently changed to by mouth Levaquin. The patient's cellulitis has significantly improved since her hospitalization. Also of note, the patient was also noted to have acute on chronic normocytic anemia. The patient was transfused 1 unit of packed red blood cells. Of note, the patient has had a significant workup as an outpatient for her anemia including colonoscopy, and bone marrow biopsy which did not reveal any source of her anemia, as well as thrombocytopenia/leukopenia. It is likely secondary to her underlying liver disease. At this time, the patient states that she is feeling much better and is eager to return home. I've advised the patient to follow-up with her primary care physician within 7 days. She is also advised to follow-up with hematology for further workup of her anemia. Lastly, the patient has been advised to return to the ER for any acute emergencies. DISCHARGE MEDICATIONS: Please see below. ALLERGIES: Please see below. PHYSICAL EXAMINATION ON DISCHARGE: VITAL SIGNS: Please see below. General Exam: Positive: Alert, Cooperative, No Acute Distress ENT Exam: Positive: Atraumatic, Mucous membr. moist/pink Neck Exam: Negative: JVD Chest Exam: Positive: Clear to auscultation, Normal air movement Heart Exam: Positive: Rate Normal, Normal S1, Normal S2 Abdomen Exam: Positive: Soft; Negative: Tenderness Extremity Exam: Positive: Other (Left Hip notable for area of redness, and scaling of skin. Left foot noted to have decreased erythema, no tenderness to palpation. No superficial drainage. No tenderness to palpation. ROM of the left hip/ankle joint intact); Negative: Tenderness Psych Exam: Positive: Oriented x 3 LABORATORY DATA: Please see below. IMAGING: LEFT FEMUR, FOUR VIEWS: HISTORY: Left hip infection. COMPARISON: Left hip, date 09/01/2018. There is no acute fracture or dislocation. There is minimal narrowing of the left hip joint space and mild narrowing of the left knee joint space. IMPRESSION: There is no acute fracture or dislocation. Clinical: Acute renal failure. Technique: Real time chester scale and color evaluation using curved array transducer. Findings: Bilateral kidneys are normal in contour, size, echogenicity, and reniform shape without hydronephrosis, nephrolithiasis, cystic or renal mass lesion. Right kidney measures 12.8 x 6.4 x 5.8 cm. Left kidney measures 13.0 x 6.4 x 5.6 cm. No perinephric fluid collections. Bladder is unremarkable. Impression: Essentially normal age appropriate examination. No hydronephrosis. Duplex extremity venous ultrasound: Left lower extremity. History: Evaluate venous flow. Question DVT. Rule out abscess or hematoma. Findings: The deep veins are anechoic and fully compressible from the groin to the popliteal fossa in the left lower extremity. Color flow imaging is homogeneous. Spectral Doppler interrogation demonstrates intact respiratory variation in flow and normal manual augmentation of flow. There is no evidence of deep vein thrombosis. Impression: Negative left lower extremity duplex venous ultrasound. No evidence of deep vein thrombosis. Exam was somewhat inhibited by patient body habitus. No evidence of abscess or abnormal fluid collection Soft-tissue ultrasound left hip region. History: Rule out abscess. Findings: Scanning in the area of the left hip wound and adjacent soft tissues show no abnormal fluid collection to suggest abscess. Soft tissue edema is seen diffusely. Impression: No abscess seen. PROGNOSIS: Fair ACTIVITY: As tolerated. DIET: Low-fat, low-cholesterol, carb consistent diet DISCHARGE PLAN: DISPOSITION: 01 Home, Self-Care. DISCHARGE INSTRUCTIONS: I've advised the patient to follow-up with her primary care physician within 7 days. She is also advised to follow-up with hematology for further workup of her anemia. Lastly, the patient has been advised to return to the ER for any acute emergencies. DISCHARGE CONDITION: Stable. TIME SPENT ON DISCHARGE: Greater than 30 minutes. Vital Signs/I&Os Vital Signs Date Time Temp Pulse Resp B/P (MAP) Pulse Ox O2 Delivery O2 Flow Rate FiO2 09/23/18 14:00 69 20 98 Room Air 09/23/18 14:00 96.7 159/71 (100) Microbiology Microbiology 09/18/18 Wound Culture - Final, Complete Corynebacterium Species Discharge Medications Scheduled (Admelog) 100 Unit/Ml Inj, 1 DOSE SC ACHS, (Reported) PER SLIDING SCALE (Basaglar Kwikpen) 100 Unit/Ml Inj, 75 UNIT SC BID, (Reported) Aspirin (Aspirin EC) 81 Mg Tabec, 81 MG PO DAILY, (Reported) Bumetanide (Bumetanide) 2 Mg Tab, 2 MG PO BID, (Reported) Bupropion HCl (Bupropion HCl Xl) 300 Mg Tab, 300 MG PO DAILY, (Reported) Carvedilol (Carvedilol) 25 Mg Tab, 25 MG PO BID, (Reported) Dicyclomine HCl (Dicyclomine HCl) 10 Mg Cap, 10 MG PO QID, (Reported) Docusate Sodium (Colace) 100 Mg Cap, 100 MG PO BID, (Reported) Ergocalciferol (Vitamin D) 2,000 Unit Cap, 2,000 UNIT PO DAILY, (Reported) Ferrous Sulfate (Ferrous Sulfate) 325 Mg Tab, 325 MG PO BID Levofloxacin Hemihydrate (Levaquin) 500 Mg Tab, 500 MG PO DAILY@1800 Losartan Potassium (Losartan Potassium) 50 Mg Tab, 25 MG PO DAILY, (Reported) Magnesium Oxide (Magnesium Oxide 400) 400 Mg Tab, 400 MG PO QHS, (Reported) Montelukast Sodium (Singulair) 10 Mg Tab, 10 MG PO QHS, (Reported) Omeprazole (Omeprazole) 20 Mg Cap, 20 MG PO DAILY, (Reported) Potassium Chloride (Potassium Chloride ER) 10 Meq Cap, 10 MEQ PO DAILY, (Reported) Pregabalin (Lyrica) 75 Mg Cap, 75 MG PO BID, (Reported) Rifaximin (Xifaxan) 550 Mg Tab, 550 MG PO BID, (Reported) Spironolactone (Spironolactone) 50 Mg Tab, 50 MG PO DAILY, (Reported) Scheduled PRN Albuterol Sulfate (Proair Hfa) 108 Mcg/Act Aer, 2 PUFF INH Q4H PRN for SHORTNESS OF BREATH, (Reported) Albuterol/Ipratropium (Ipratropium [place]/Albut 0.5-2.5 (3) mg/3Ml) 1 Petty Petty, 1 PETTY INH QID PRN for SHORTNESS OF BREATH, (Reported) Beclomethasone Dipropionate (Qvar Redihaler) 40 Mcg/Act Aer, 2 PUFFS INH BID PRN for SHORTNESS OF BREATH, (Reported) Diclofenac Sodium (Diclofenac Sodium) 1 % Gel, 1 DOSE TOP QID PRN for PAIN, (Reported) APPLIES TO LEFT KNEE AND LEFT WRIST Fluticasone Propionate (Fluticasone Propionate) 50 Mcg/Act Spr, 1 SPRAY NA DAILY PRN for NASAL CONGESTION, (Reported) Lactulose (Lactulose) 10 Gm/15 Ml Petty, 20 GM PO TID PRN for CONSTIPATION, (Reported) Meclizine HCl (Meclizine HCl) 25 Mg Tab, 25 MG PO TID PRN for DIZZINESS, (Reported) Ondansetron (Ondansetron Odt) 4 Mg Tab, 4 MG PO Q4H PRN for NAUSEA, (Reported) Oxycodone HCl (Oxycodone HCl) 5 Mg Tab, 5 MG PO QID PRN for PAIN, (Reported) Ropinirole Hydrochloride (Requip) 4 Mg Tab, 4 MG PO BID PRN for RESTLESSNESS, (Reported) Topiramate (Topamax) 50 Mg Tab, 1 TAB PO QHSP PRN for HEADACHE Allergies Coded Allergies: MS - Metformin (Verified Allergy, Intermediate, RASH, 04/23/18) MS - Diltiazem (Verified Adverse Reaction, Intermediate, SWELLINGING IN HANDS, FEET, AND LEGS, 04/23/18) MS - Lisinopril (Verified Adverse Reaction, Mild, cough, 04/23/18) MS - Phenazopyridine (Verified Adverse Reaction, Mild, BLEEDING, 04/23/18) MS - Rosiglitazone (Verified Adverse Reaction, Mild, WATER RETENTION, 04/23/18) CASEY GAMING MD Sep 28, 2018 17:30
== END 2018-09-23 20:42 | disposition home or self-care (01) | DRG 383 ==
LOC: M ED 01:12 → M ED INP 05:56 → M MSPAV 12:07
PROVIDERS: ADMIT Internal Medicine; ATTEND Internal Medicine
PROC: 30233N1 Transfusion of Nonautologous Red Blood Cells into Peripheral Vein, Percutaneous Approach (ICD-10-PCS; principal; 2018-09-17)
DX: L03.116 Cellulitis of left lower limb (principal); I27.20 Pulmonary hypertension, unspecified; I13.0 Hypertensive heart and chronic kidney disease with heart failure and stage 1 through stage 4 chronic kidney disease, or unspecified chronic kidney disease; K74.60 Unspecified cirrhosis of liver; E11.9 Type 2 diabetes mellitus without complications; D50.9 Iron deficiency anemia, unspecified; I50.32 Chronic diastolic (congestive) heart failure; N18.9 Chronic kidney disease, unspecified; F32.9 Major depressive disorder, single episode, unspecified; K21.9 Gastro-esophageal reflux disease without esophagitis; G47.33 Obstructive sleep apnea (adult) (pediatric); E66.9 Obesity, unspecified; I25.10 Atherosclerotic heart disease of native coronary artery without angina pectoris; Z91.19 Patient's noncompliance with other medical treatment and regimen; G43.909 Migraine, unspecified, not intractable, without status migrainosus

== ENCOUNTER → 2018-09-27 | Outpatient (REF) | payer OTHER ==
[~2018-09-27] MED LIST changes: +BUPR300T34 PO; +CEPH500C PO; +LEVA1TAB2 PO; +POTA10CA32 PO; +TOPA50TA8 PO
[2018-09-27 11:24] LABS: BASO % 0.9 % (0.0-1.0); EOS # 0.1 10^3/uL (0.0-0.50); EOS % 4.3 % (0.0-3.0); HEMATOCRIT 32.5 % (36.0-47.0); HEMOGLOBIN 10.1 g/dl (12.0-15.5); LYMPH # 1.4 10^3/uL (1.5-4.5); LYMPH % 42.7 % (24.0-44.0); MEAN CORPUSCULAR HEMOGLOBIN 26.4 pg (27.0-33.0); MEAN CORPUSCULAR HGB CONC 31.1 g/dl (32.0-36.5); MEAN CORPUSCULAR VOLUME 84.9 fl (80.0-96.0); MONO # 0.3 10^3/uL (0.0-0.8); MONO % 8.4 % (0.0-5.0); NEUTROPHILS # 1.4 10^3/uL (1.8-7.7); NEUTROPHILS % 43.4 % (36.0-66.0); PLATELET COUNT, AUTOMATED 162 10^3/uL (150-450); RED BLOOD COUNT 3.83 10^6/uL (4.00-5.40); WHITE BLOOD COUNT 3.2 10^3/uL (4.0-10.0)
[2018-09-27 12:04] LABS: CALCIUM LEVEL 8.4 MG/DL (8.5-10.1); CREATININE FOR GFR 1.2 MG/DL (0.55-1.30); GLOMERULAR FILTRATION RATE 50.4 (>51); POTASSIUM SERUM 4.4 MEQ/L (3.5-5.1)
== END ==
LOC: M SFHCLERA 08:15
PROVIDERS: ATTEND Family Medicine
DX: I50.32 Chronic diastolic (congestive) heart failure (principal); D63.8 Anemia in other chronic diseases classified elsewhere

== ENCOUNTER 2018-10-25 11:34 | Inpatient (IN) | payer OTHER ==
[~2018-10-25] VITALS: Ht 180.3 cm; Wt 159.4 kg
[~2018-10-25 11:34] MED LIST changes: -/ATOR40TA; -/ESCI20TA; -/ESOM40CA; -/FENT50PA; -/TIOT18INH; -DULO30CA PO; +DULO30CA9 PO; +FENT1DIS15; +LEXA1TAB2; +LIPI1TAB2; -METR-201 PO; +METR-265 PO; +MUPI1OIN2; -MUPI2OI; +NEXI1CAP3; -NORC1TAB4 PO; +NORC1TAB7 PO; -NUCY50TA14 PO; +NYST-15 TOP; -NYST10PW TOP; -PERCOCET PO; +SENN1TAB41 PO; -SENN8.6T7 PO; +SERT-141 PO; -SERT50TA PO; +SPIR1CAP; +TAPE50TA3 PO
[2018-10-25] MEDS ORDERED: NS 1,000 ML IV ONE (12:15)
[2018-10-25 12:51] LABS: VENOUS BASE EXCESS -1.7 (-2.0-2.0); VENOUS HCO3 21.6 MEQ/L (23.0-27.0); VENOUS O2 SATURATION 98.8 % (60.0-80.0); VENOUS PARTIAL PRESSURE CO2 32.4 mmHg (38.0-50.0); VENOUS PARTIAL PRESSURE O2 130.6 mmHg (30.0-50.0); VENOUS PH 7.442 UNITS (7.330-7.430); VENOUS STANDARD HCO3 23.1 MEQ/L; VENOUS TOTAL CO2 22.6 MEQ/L (24.0-28.0)
[2018-10-25 12:52] LABS: BASO % 1.1 % (0.0-1.0); EOS # 0.2 10^3/uL (0.0-0.50); EOS % 4.2 % (0.0-3.0); HEMATOCRIT 36.4 % (36.0-47.0); HEMOGLOBIN 12.3 g/dl (12.0-15.5); LYMPH # 1.4 10^3/uL (1.5-4.5); LYMPH % 38.3 % (24.0-44.0); MEAN CORPUSCULAR HEMOGLOBIN 28.6 pg (27.0-33.0); MEAN CORPUSCULAR HGB CONC 33.8 g/dl (32.0-36.5); MEAN CORPUSCULAR VOLUME 84.7 fl (80.0-96.0); MONO # 0.2 10^3/uL (0.0-0.8); MONO % 5.6 % (0.0-5.0); NEUTROPHILS # 1.8 10^3/uL (1.8-7.7); NEUTROPHILS % 50.5 % (36.0-66.0); PLATELET COUNT, AUTOMATED 109 10^3/uL (150-450); WHITE BLOOD COUNT 3.6 10^3/uL (4.0-10.0)
[2018-10-25 13:11] LABS: INR 1.05; PROTHROMBIN TIME 13.8 SECONDS (12.1-14.4)
[2018-10-25 13:12] LABS: PARTIAL THROMBOPLASTIN TIME 25.7 SECONDS (25.4-37.6)
[2018-10-25 13:18] LABS: ALBUMIN 3.2 GM/DL (3.2-5.2); ALT/SGPT 47 U/L (12-78); AMYLASE 42 U/L (25-115); BILIRUBIN,DIRECT 0.1 MG/DL (0.0-0.2); BILIRUBIN,TOTAL 0.6 MG/DL (0.2-1.0); BLOOD UREA NITROGEN 45 MG/DL (7-18); CALCIUM LEVEL 8.7 MG/DL (8.5-10.1); CARBON DIOXIDE LEVEL 20 MEQ/L (21-32); CHLORIDE LEVEL 111 MEQ/L (98-107); CPK CREATINE PHOSPHOKINASE 98 U/L (26-192); CREATININE FOR GFR 1.33 MG/DL (0.55-1.30); GLOMERULAR FILTRATION RATE 44.8 (>51); GLUCOSE, FASTING 356 MG/DL (70-100); LIPASE 463 U/L (73-393); MB/CK RELATIVE INDEX 1.33 (< OR =4); POTASSIUM SERUM 4.4 MEQ/L (3.5-5.1); SODIUM LEVEL 140 MEQ/L (136-145); TOTAL PROTEIN 6.8 GM/DL (6.4-8.2); TROPONIN I < 0.02 NG/ML (< 0.10)
[2018-10-25] MEDS ORDERED: ISOVUE-370 76% 100ML VIAL (Q9967) As Ordered ONE (13:26)
--- NOTE | 2018-10-25 14:01 | REP ---
PORTABLE CHEST: AP portable view of the chest is performed and compared to a prior study 09/01/2018. There is mild cardiomegaly. There is no acute infiltrate. The mediastinal silhouette is unremarkable, unchanged. IMPRESSION: No acute pulmonary disease. Mild cardiomegaly. Electronically Signed by Pedro Pablo Lu MD 10/25/2018 05:41 P
--- NOTE | 2018-10-25 14:43 | REP ---
CT ABDOMEN/PELVIS WITH IV CONTRAST: TECHNIQUE: Axial contrast enhanced images from the lung bases to the pubic symphysis using 100 mL Isovue 370 intravenous contrast material with multiplanar reformations. Visualized lung bases are clear. Liver demonstrates no definite mass. Patient has had a prior cholecystectomy. I do not see evidence of biliary dilatation. The spleen is mildly enlarged, similar to the prior study of 06/15/2018. Small splenic artery aneurysm is stable. Adrenals, pancreas, and kidneys are unchanged. There is no hydronephrosis bilaterally. There is no abdominal aortic aneurysm. I see no adenopathy, free air or free fluid. There is no bowel wall thickening. Multiple varices are seen in the left retroperitoneal region. There is a small superior mesenteric vein. There is a small umbilical hernia containing fat, unchanged. No pelvic mass is seen. Urinary bladder is grossly unremarkable. There are degenerative changes of the spine. IMPRESSION: Evidence of portal hypertension, mild splenomegaly. Small umbilical hernia contains fat. Status post cholecystectomy. No free air or free fluid. No other acute finding identified. Electronically Signed by Pedro Pablo Lu MD 10/25/2018 06:31 P
[2018-10-25] MEDS ORDERED: LOSA25TA14 PO (15:37)
[2018-10-25] MEDS ORDERED: TOPI50TA9 PO (15:38)
[2018-10-25] MEDS ORDERED: FERR325T3 PO (15:38)
[2018-10-25] MEDS ORDERED: NYST1POW9 TOP (15:39)
[2018-10-25] MEDS ORDERED: GLUCAGON FOR INJ 1 MG VIAL (J1610) SC PRN (17:15)
[2018-10-25] MEDS ORDERED: DEXTROSE 50% 50 ML SYRINGE IV PRN (17:15)
[2018-10-25] MEDS ORDERED: NYSTATIN 100,000 UNITS/GM TOPICAL PWD 15 GM TOP PRN (17:15)
[2018-10-25] MEDS ORDERED: MECLIZINE 25 MG TABLET PO PRN (17:15)
[2018-10-25] MEDS ORDERED: GLUCOSE 4 GM CHEW TABLET PO PRN (17:15)
[2018-10-25] MEDS ORDERED: ALBUTEROL 90 MCG/ACT 8GM HFA INHALER INH PRN (17:15)
[2018-10-25] MEDS ORDERED: IPRATROPIUM 0.5MG/ALBUTEROL 2.5MG INH SOL UD 3ML (DUONEB)(J7620) INH PRN (17:15)
--- NOTE | 2018-10-25 17:51 | HPEPDOC ---
[facility] Medical History & Physical Date of Admission Oct 25, 2018 Attending Physician: YESSENIA GRIFFIN MD History and Physical CHIEF COMPLAINT: nausea, confusion HISTORY OF PRESENT ILLNESS: Hina Devi is a 52 YO F with CHAMPAGNE cirrhosis with splenomegaly, pulmonary hypertension, DM2 and several other chronic diseases who presents with 4 days of confusion, nausea, vomiting in the setting of dosing confusion of her lactulose. She was recently admitted to [facility] and treated with IV antibiotics for cellulitis and upon discharge was told to take lactulose only if she needed to have a bowel movement. She did not take it up u ntil 4 days ago when she started to feel confused, was hallucinating, noticed flapping of her arms and unable to ambulate. She states this feels the same as prior episodes when her ammonia was elevated. In the ED she was found to have an ammonia level of 145. She also states that she has a vague abdominal pain in her left lower quadrant that is intermittent and dull in nature. In the ED she has had almost 4 bowel movements with soft stool by the time of admission. PAST MEDICAL HISTORY: 1. Diabetes type 2 2. Hypertension 3. Major depressive disorder. 4. Kidney stones. 5. Arthritis 6. Restless leg syndrome. 7. CHAMPAGNE cirrhosis with splenomegaly 8. GERD without esophagitis. 9. Pulmonary hypertension PAST SURGICAL HISTORY: C section 1987 gall bladder 1987 breast lump removed, right 1993 endometrial ablation 1998 mass removed from left leg 2010 Left shoulder rotator cuff 2012 Left breast cyst removal 2011 Sinus/ deviated septum 2012 achelies tendon--right 2013 bronchoscopy 2004, 2006 Colonoscopy/ Endoscopy heart catherization 05/2015 D&C & BX of uterine lining 11/2016 heart cath, liver biopsy 04/2017 SOCIAL HISTORY: Current smoker Denies EtOH, other drug use Lives with son and [id number] in [place] FAMILY HISTORY: Father: diagnosed with Diabetes, Hypertension Mother: Hypertension, Heart Disease Siblings: Cancer, Heart Disease sister - of pancreatic cancer\nbrother with h\/o CVD. ALLERGIES: Please see below. REVIEW OF SYSTEMS: Negative other than what is mentioned in HPI HOME MEDICATIONS: Please see below. PHYSICAL EXAMINATION: VITAL SIGNS: See below GENERAL APPEARANCE: Laying in bed, calm, no acute distress HEENT: moist mucus membranes, no thyromegaly CARDIOVASCULAR: RRR, no murmurs/rubs/gallops LUNGS: Clear to auscultation bilaterally ABDOMEN: soft, tender to deep palpation in the left lower quadrant, no masses, no organomegaly MUSCULOSKELETAL: lower extremity asterixis appreciated, flapping tremor of upper extremities appreciated EXTREMITIES: no clubbing/cyanosis/edema NEUROLOGICAL: no focal deficits appreciated PSYCHIATRIC: AAOx3, normal mood/affect LABORATORY DATA: See below. IMAGING: CT ABD/PELVIS: Evidence of portal hypertension, mild splenomegaly. Small umbilical hernia contains fat. Status post cholecystectomy. No free air or free fluid. No other acute finding identified. CXR: No acute pulmonary disease. Mild cardiomegaly. MICROBIOLOGY: Please see below. ASSESSMENT: This is a 52 YOF with history of CHAMPAGNE cirrhosis who presents with 4 days confusion, arm flapping, hallucinations, and difficulty with ambulation in the setting of lactulose noncompliance. She will be admitted to the medical/surgical floor for close observation. PLAN: 1. Hyperammonemia 2/2 to CHAMPAGNE cirrhosis: Ammonium on admission found to be 145. The patient has been taking lactulose at home for the past 4 days and has had several bowel movements per day -Continue Lactulose 30ml QID -Will continue to monitor ammonia and clinical signs -Holding diuretics at this time for RUBY -Continue Rifaximin -Meclizine for nausea 2. DM2: -SSI with hypoglycemic protocol 3. COPD: -Continue home inhalers 4. GERD: -Continue Omeprazole 5. Chronic Anemia: patient underwent blood transfusion during last hospitalization and was seen by hematology. -Hgb stable at 12.3 -Continue iron supplementation 6. Mood disorder: -continue Welbutrin 7. Chronic migraines: -Continue Topamax DVT Ppx: TEDs/Sequentials CODE STATUS: FULL CODE Vital Signs Vital Signs Date Time Temp Pulse Resp B/P (MAP) Pulse Ox O2 Delivery O2 Flow Rate FiO2 10/25/18 15:34 69 97 10/25/18 15:31 133/63 (86) Room Air 10/25/18 11:35 97.6 17 Laboratory Data Labs 24H Laboratory Tests 2 10/25/18 12:34: Immature Granulocyte % (Auto) 0.3, White Blood Count 3.6L, Red Blood Count 4.30, Hemoglobin 12.3, Hematocrit 36.4, Mean Corpuscular Volume 84.7, Mean Corpuscular Hemoglobin 28.6, Mean Corpuscular Hemoglobin Concent 33.8, Red Cell Distribution Width 19.9H, Platelet Count 109L, Neutrophils (%) (Auto) 50.5, Lymphocytes (%) (Auto) 38.3, Monocytes (%) (Auto) 5.6H, Eosinophils (%) (Auto) 4.2H, Basophils (%) (Auto) 1.1H, Neutrophils # (Auto) 1.8, Lymphocytes # (Auto) 1.4L, Monocytes # (Auto) 0.2, Eosinophils # (Auto) 0.2, Basophils # (Auto) 0.0, Nucleated Red Blood Cells % (auto) 0.0, Prothrombin Time 13.8, Prothromb Time International Ratio 1.05, Activated Partial Thromboplast Time 25.7, Blood Gas Bicarbonate Standard 23.1, Venous Blood pH 7.442H, Venous Blood Partial Pressure CO2 32.4L, Venous Blood Partial Pressure O2 130.6H, Venous Blood Total Carbon Dioxide 22.6L, Venous Blood HCO3 21.6L, Venous Blood Oxygen Saturation 98.8H, Venous B lood Base Excess -1.7, Anion Gap 9, Glomerular Filtration Rate 44.8L, Lactic Acid Level 1.3, Calcium Level 8.7, Aspartate Amino Transf (AST/SGOT) 62H, Alanine Aminotransferase (ALT/SGPT) 47, Alkaline Phosphatase 123H, Total Bilirubin 0.6, Direct Bilirubin 0.1, Ammonia 145H, Total Creatine Kinase 98, Creatine Kinase MB 1.0, Creatine Kinase MB Relative Index 1.33, Troponin I < 0.02, Total Protein 6.8, Albumin 3.2, Albumin/Globulin Ratio 0.89L, Amylase Level 42, Lipase 463H 10/25/18 13:00: Urine Color STRAW, Urine Appearance CLEAR, Urine pH 5.0, Urine Specific [place] 1.009, Urine Protein NEGATIVE, Urine Glucose (UA) 2+H, Urine Ketones NEGATIVE, Urine Blood NEGATIVE, Urine Nitrite NEGATIVE, Urine Bilirubin NEGATIVE, Urine Urobilinogen 0.2, Urine Leukocyte Esterase NEGATIVE, Urine WBC (Auto) 0, Urine RBC (Auto) 2, Urine Hyaline Casts (Auto) 2, Urine Bacteria (Auto) NEGATIVE, Urine Squamous Epithelial Cells 0, Urine Mucus (Auto) SMALL, Urine Sperm (Auto) CBC/BMP Laboratory Tests 10/25/18 12:34 Red Blood Count 4.30, Mean Corpuscular Volume 84.7, Mean Corpuscular Hemoglobin 28.6, Mean Corpuscular Hemoglobin Concent 33.8, Red Cell Distribution Width 19.9 H, Neutrophils (%) (Auto) 50.5, Lymphocytes (%) (Auto) 38.3, Monocytes (%) (Auto) 5.6 H, Eosinophils (%) (Auto) 4.2 H, Basophils (%) (Auto) 1.1 H, Neutrophils # (Auto) 1.8, Lymphocytes # (Auto) 1.4 L, Monocytes # (Auto) 0.2, Eosinophils # (Auto) 0.2, Basophils # (Auto) 0.0 Microbiology Microbiology 10/25/18 Blood Culture, Received Pending 10/25/18 Blood Culture, Received Pending Home Medications Scheduled Aspirin (Aspirin EC) 81 Mg Tabec, 81 MG PO DAILY Bumetanide (Bumetanide) 2 Mg Tab, 2 MG PO BID Bupropion HCl (Bupropion Xl) 300 Mg Tab, 300 MG PO DAILY Carvedilol (Carvedilol) 25 Mg Tab, 25 MG PO BID Docusate Sodium (Colace) 100 Mg Cap, 100 MG PO BID Ergocalciferol (Vitamin D2) (Vitamin D2) 2,000 Unit Cap, 2,000 UNIT PO DAILY Ferrous Sulfate (Ferrous Sulfate) 325 Mg Tablet.dr, 325 MG PO BID Insulin Glargine,Hum.rec.anlog (Basaglar Kwikpen U-100) 100 Unit/Ml Inj, 75 UNIT SC BID Insulin Lispro (Admelog) 100 Unit/Ml Inj, 1 DOSE SC ACHS PER SLIDING SCALE Losartan Potassium (Losartan Potassium) 25 Mg Tablet, 25 MG PO DAILY Montelukast Sodium (Singulair) 10 Mg Tab, 10 MG PO QHS Omeprazole (Omeprazole) 20 Mg Cap, 20 MG PO DAILY Potassium Chloride (Potassium Chloride) 10 Meq Cap, 10 MEQ PO DAILY Pregabalin (Lyrica) 75 Mg Cap, 75 MG PO BID Rifaximin (Xifaxan) 550 Mg Tab, 550 MG PO BID Spironolactone (Spironolactone) 50 Mg Tab, 50 MG PO DAILY Topiramate (Topiramate) 50 Mg Tablet, 50 MG PO QHS Scheduled PRN Albuterol Sulfate (Proair Hfa) 108 Mcg/Act Aer, 2 PUFF INH Q4H PRN for SHORTNESS OF BREATH Beclomethasone Dipropionate (Qvar Redihaler) 40 Mcg/Act Aer, 2 PUFFS INH BID PRN for SHORTNESS OF BREATH Diclofenac Sodium (Diclofenac Sodium) 1 % Gel, 1 DOSE TOP QID PRN for PAIN APPLIES TO LEFT KNEE AND LEFT WRIST Fluticasone Propionate (Fluticasone Propionate) 50 Mcg/Act Spr, 1 SPRAY NA DAILY PRN for NASAL CONGESTION Ipratropium/Albuterol Sulfate (Iprat-Albut 0.5-3(2.5) mg/3 ml) 1 Petty Petty, 1 PETTY INH QID PRN for SHORTNESS OF BREATH Lactulose (Lactulose) 10 Gm/15 Ml Petty, 20 GM PO TID PRN for CONSTIPATION Meclizine HCl (Meclizine HCl) 25 Mg Tab, 25 MG PO TID PRN for DIZZINESS Nystatin (Nystatin Powder) 15 Gm Powder, 1 APLCT TOP DAILY PRN for ITCHING APPLIES UNDER BELLY Ondansetron (Ondansetron Odt) 4 Mg Tab, 4 MG PO Q4H PRN for NAUSEA Oxycodone HCl (Oxycodone HCl) 5 Mg Tab, 5 MG PO QID PRN for PAIN Ropinirole HCl (Requip) 4 Mg Tab, 4 MG PO BID PRN for RESTLESSNESS Allergies Coded Allergies: metformin (Verified Allergy, Intermediate, RASH, 10/01/18) diltiazem (Verified Adverse Reaction, Intermediate, SWELLING IN HANDS, FEET AND LEGS, 10/01/18) phenazopyridine (Verified Adverse Reaction, Intermediate, CAUSES BLEEDING, 10/05/18) lisinopril (Verified Adverse Reaction, Mild, COUGH, 10/01/18) rosiglitazone (Verified Adverse Reaction, Mild, WATER RETENTION, 10/01/18) GME ATTESTATION GME ATTESTATION My faculty preceptor for this patient encounter was physically present during the encounter and was fully available. All aspects of the patient interview, examination, medical decision making process, and medical care plan development were reviewed and approved by the faculty preceptor. The faculty preceptor is aware and concurs with the plan as stated in the body of this note and will attest to such by his/her cosignature. SHAUN TORIBIO MD Oct 25, 2018 17:51
[2018-10-25] MEDS: HumaLOG INSULIN (NovoLOG) PER UNIT SC SCH ×2 (18:14→21:00)
[2018-10-25 20:40] VITALS: BP 145/86
[2018-10-25] MEDS: LACTULOSE 20 GM/30 ML SYRUP UD PO SCH (22:27)
[2018-10-25] MEDS: MONTELUKAST 10 MG TAB PO SCH (22:28)
[2018-10-25] MEDS: FERROUS SULFATE 325MG TAB PO SCH (22:28)
[2018-10-25] MEDS: CARVedilol 12.5 MG TAB PO SCH (22:28)
[2018-10-25] MEDS: PREGABALIN 75 MG CAP(LYRICA) PO SCH (22:28)
[2018-10-25] MEDS: TOPIRAMATE (TopAMAX) 25 MG TAB PO SCH (22:29)
[2018-10-25] MEDS: rifAXIMin 550 MG TAB (XIFAXAN) PO SCH (22:29)
[2018-10-25] MEDS: rOPINIRole 1MG TAB PO PRN (22:36)
[2018-10-25] MEDS: LEVEMIR (INSULIN DETEMIR) 1 UNITS/0.01ML SC SCH (23:13)
[2018-10-26] VITALS (7 sets, daily range): BP systolic 138–155; BP diastolic 68–83
--- NOTE | 2018-10-26 01:12 | ECGEPIP ---
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
[2018-10-26 06:08] LABS: ALBUMIN 2.8 GM/DL (3.2-5.2); ALT/SGPT 39 U/L (12-78); BILIRUBIN,TOTAL 0.4 MG/DL (0.2-1.0); BLOOD UREA NITROGEN 31 MG/DL (7-18); CALCIUM LEVEL 8.4 MG/DL (8.5-10.1); CARBON DIOXIDE LEVEL 22 MEQ/L (21-32); CHLORIDE LEVEL 112 MEQ/L (98-107); CREATININE FOR GFR 0.96 MG/DL (0.55-1.30); GLOMERULAR FILTRATION RATE > 60.0 (>51); GLUCOSE, FASTING 206 MG/DL (70-100); POTASSIUM SERUM 3.5 MEQ/L (3.5-5.1); SODIUM LEVEL 141 MEQ/L (136-145); TOTAL PROTEIN 6.4 GM/DL (6.4-8.2)
[2018-10-26] MEDS ORDERED: OMEPRAZOLE 20 MG CAP PO SCH (09:00)
[2018-10-26] MEDS ORDERED: ASPIRIN 81 MG ENTERIC TAB PO SCH (09:00)
[2018-10-26] MEDS ORDERED: buPROPion **XL** TABLET 150MG (WELLBUTRIN XL) PO SCH (09:00)
[2018-10-26] MEDS: LEVEMIR (INSULIN DETEMIR) 1 UNITS/0.01ML SC SCH ×2 (10:10→20:41)
[2018-10-26] MEDS: LACTULOSE 20 GM/30 ML SYRUP UD PO SCH ×3 (10:10→20:39)
[2018-10-26] MEDS: HumaLOG INSULIN (NovoLOG) PER UNIT SC SCH ×4 (10:10→20:41)
[2018-10-26] MEDS: rifAXIMin 550 MG TAB (XIFAXAN) PO SCH ×2 (10:11→20:39)
[2018-10-26] MEDS: PREGABALIN 75 MG CAP(LYRICA) PO SCH ×2 (10:11→20:39)
[2018-10-26] MEDS: rOPINIRole 1MG TAB PO PRN (10:11)
[2018-10-26] MEDS: CARVedilol 12.5 MG TAB PO SCH ×2 (10:12→20:42)
[2018-10-26] MEDS: FERROUS SULFATE 325MG TAB PO SCH ×2 (10:12→20:40)
[2018-10-26] MEDS ORDERED: oxyCODONE 5MG TAB PO ONE (11:15)
[2018-10-26] MEDS ORDERED: LACT10SO29 PO ×2 (18:56→18:58)
--- NOTE | 2018-10-26 19:12 | DS.PDOC ---
Discharge Summary General Date of Admission Oct 25, 2018 at 15:59 Date of Discharge 10/26/18 Discharge Summary PROCEDURES PERFORMED DURING STAY: [None]. ADMITTING DIAGNOSES: Hyperammonemia 2/2 to CHAMPAGNE cirrhosis Diabetes type 2 Hypertension Major depressive disorder. Kidney stones. Arthritis Restless leg syndrome. CHAMPAGNE cirrhosis with splenomegaly GERD without esophagitis. Pulmonary hypertension DISCHARGE DIAGNOSES: Hyperammonemia 2/2 to CHAMPAGNE cirrhosis Diabetes type 2 Hypertension Major depressive disorder. Kidney stones. Arthritis Restless leg syndrome. CHAMPAGNE cirrhosis with splenomegaly GERD without esophagitis. Pulmonary hypertension COMPLICATIONS/CHIEF COMPLAINT: Hepaticencephalopathy. HISTORY OF PRESENT ILLNESS: [Hina Devi is a 52 YO F with CHAMPAGNE cirrhosis with splenomegaly, pulmonary hypertension, DM2 and several other chronic diseases who presents with 4 days of confusion, nausea, vomiting in the setting of dosing confusion of her lactulose. She was recently admitted to [facility] and treated with IV antibiotics for cellulitis and upon discharge was told to take lactulose only if she needed to have a bowel movement. She did not take it up until 4 days ago when she started to feel confused, was hallucinating, noticed flapping of her arms and unable to ambulate. She states this feels the same as prior episodes when her ammonia was elevated. In the ED she was found to have an ammonia level of 145. She also states that she has a vague abdominal pain in her left lower quadrant that is intermittent and dull in nature. In the ED she has had almost 4 bowel movements with soft stool by the time of admission. ]. HOSPITAL COURSE: [52 YOF with history of CHAMPAGNE cirrhosis who presents with 4 days confusion, arm flapping, hallucinations, and difficulty with ambulation in the setting of lactulose noncompliance. She will be admitted to the medical/surgical floor for close observation. Patient states that she was compliant but just misunderstood the instruction regarding her lactulose. Patient initially was told that she should not be taking lactulose on that she needed to require to have a bowel movement. She did not realize the benefit of utilizing lactulose to pull ammonia level out her system. Patient now understands that she needs to take lactulose. Patient is unclear mentation this morning and understands new instruction that she has to take lactulose as needed to maintain 3-4 bowel movements per day. She seems agreeable to follow this plan. She has multiple admission to the hospital of personal problems due to either noncompliance or misunderstanding instruction. I'm optimistic that she understands what she needs to do from now on but would not be surprised if she returns to the hospital for similar problems in the future. Patient to follow-up with primary care physician within one week. Patient has a history of cellulitis which seems to have resolved without any acute finding at this time. Patient feels comfortable returning home today and to follow up with primary care physician within one week. Patient will be given new prescription for lactulose 30 mL 3 times a day as needed to maintain 3-4 bowel movements per day. DISCHARGE MEDICATIONS: Please see below. ALLERGIES: Please see below. PHYSICAL EXAMINATION ON DISCHARGE: VITAL SIGNS: Please see below. GENERAL APPEARANCE: Awake and calm, no acute distress HEENT: moist mucus membranes, no thyromegaly CARDIOVASCULAR: RRR, no murmurs/rubs/gallops LUNGS: Clear to auscultation bilaterally ABDOMEN: soft, no pain MUSCULOSKELETAL: lower extremity asterixis ni longer appreciated EXTREMITIES: no clubbing/cyanosis/edema NEUROLOGICAL: no focal deficits appreciated PSYCHIATRIC: AAOx3, normal mood/affect LABORATORY DATA: Please see below. IMAGING: [ Ct abdomin:Evidence of portal hypertension, mild splenomegaly. Small umbilical hernia contains fat. Status post cholecystectomy. No free air or free fluid. No other acute finding identified. CXR:No acute pulmonary disease. Mild cardiomegaly.] PROGNOSIS: [Improved] ACTIVITY: [As tolerated]. DIET: [Carbohydrate consistent ] DISCHARGE PLAN: [Please follow up with PCP within 1 week] DISPOSITION: Home DISCHARGE INSTRUCTIONS: Lactulose medication adjusted and new script provided. DISCHARGE CONDITION: [Stable]. TIME SPENT ON DISCHARGE: Greater than [45] minutes. Vital Signs/I&Os Vital Signs Date Time Temp Pulse Resp B/P (MAP) Pulse Ox O2 Delivery O2 Flow Rate FiO2 10/26/18 16:00 97.6 74 20 147/83 (104) 99 10/25/18 19:44 Room Air I&O- Last 24 Hours up to 6 AM 10/26/18 06:00 Intake Total 1170 ml Output Total 1600 ml Balance -430 ml Laboratory Data Labs 24H Laboratory Tests 2 10/25/18 20:49: Bedside Glucose (Misc Panel) 349H 10/26/18 05:23: Anion Gap 7L, Glomerular Filtration Rate > 60.0, Blood Urea Nitrogen 31H, Creatinine 0.96, Sodium Level 141, Potassium Level 3.5#, Chloride Level 112H, Carbon Dioxide Level 22, Calcium Level 8.4L, Aspartate Amino Transf (AST/SGOT) 37, Alanine Aminotransferase (ALT/SGPT) 39, Alkaline Phosphatase 125H, Total Bilirubin 0.4, Total Protein 6.4, Albumin 2.8L, Ammonia 101H, Albumin/Globulin Ratio 0.78L 10/26/18 05:44: Bedside Glucose (Misc Panel) 223H 10/26/18 11:07: Bedside Glucose (Misc Panel) 306H 10/26/18 17:09: Bedside Glucose (Misc Panel) 348H CBC/BMP Laboratory Tests 10/26/18 05:23 Calcium Level 8.4 L, Aspartate Amino Transf (AST/SGOT) 37, Alanine Aminotransferase (ALT/SGPT) 39, Alkaline Phosphatase 125 H, Total Bilirubin 0.4, Total Protein 6.4, Albumin 2.8 L FSBS Laboratory Tests Test 10/25/18 20:49 10/26/18 05:44 10/26/18 11:07 10/26/18 17:09 Range/Units Bedside Glucose (Misc Panel) 349 223 306 348 70-105 MG/DL Microbiology Microbiology 10/25/18 Blood Culture - Preliminary, Resulted No growth after 24 hours . All specim... 10/25/18 Blood Culture - Preliminary, Resulted No growth after 24 hours . All specim... Discharge Medications Scheduled Aspirin (Aspirin EC) 81 Mg Tabec, 81 MG PO DAILY, (Reported) Bumetanide (Bumetanide) 2 Mg Tab, 2 MG PO BID, (Reported) Bupropion HCl (Bupropion Xl) 300 Mg Tab, 300 MG PO DAILY, (Reported) Carvedilol (Carvedilol) 25 Mg Tab, 25 MG PO BID, (Reported) Docusate Sodium (Colace) 100 Mg Cap, 100 MG PO BID, (Reported) Ergocalciferol (Vitamin D2) (Vitamin D2) 2,000 Unit Cap, 2,000 UNIT PO DAILY, (Reported) Ferrous Sulfate (Ferrous Sulfate) 325 Mg Tablet.dr, 325 MG PO BID, (Reported) Insulin Glargine,Hum.rec.anlog (Basaglar Kwikpen U-100) 100 Unit/Ml Inj, 75 UNIT SC BID, (Reported) Insulin Lispro (Admelog) 100 Unit/Ml Inj, 1 DOSE SC ACHS, (Reported) PER SLIDING SCALE Losartan Potassium (Losartan Potassium) 25 Mg Tablet, 25 MG PO DAILY, (Reported) Montelukast Sodium (Singulair) 10 Mg Tab, 10 MG PO QHS, (Reported) Omeprazole (Omeprazole) 20 Mg Cap, 20 MG PO DAILY, (Reported) Potassium Chloride (Potassium Chloride) 10 Meq Cap, 10 MEQ PO DAILY, (Reported) Pregabalin (Lyrica) 75 Mg Cap, 75 MG PO BID, (Reported) Rifaximin (Xifaxan) 550 Mg Tab, 550 MG PO BID, (Reported) Spironolactone (Spironolactone) 50 Mg Tab, 50 MG PO DAILY, (Reported) Topiramate (Topiramate) 50 Mg Tablet, 50 MG PO QHS, (Reported) Scheduled PRN Albuterol Sulfate (Proair Hfa) 108 Mcg/Act Aer, 2 PUFF INH Q4H PRN for SHORTNESS OF BREATH, (Reported) Beclomethasone Dipropionate (Qvar Redihaler) 40 Mcg/Act Aer, 2 PUFFS INH BID PRN for SHORTNESS OF BREATH, (Reported) Diclofenac Sodium (Diclofenac Sodium) 1 % Gel, 1 DOSE TOP QID PRN for PAIN, (Reported) APPLIES TO LEFT KNEE AND LEFT WRIST Fluticasone Propionate (Fluticasone Propionate) 50 Mcg/Act Spr, 1 SPRAY NA DAILY PRN for NASAL CONGESTION, (Reported) Ipratropium/Albuterol Sulfate (Iprat-Albut 0.5-3(2.5) mg/3 ml) 1 Adali Adali, 1 ADALI INH QID PRN for SHORTNESS OF BREATH, (Reported) Lactulose (Lactulose) 10 Gm/15 Ml Adali, 20 GM PO TID PRN for CONSTIPATION, (Reported) Lactulose (Lactulose) 10 Gm/15 Ml Solution, 30 ML PO TID PRN for CONSTIPATION take medication to maintain 3-4 bowel movements per day Meclizine HCl (Meclizine HCl) 25 Mg Tab, 25 MG PO TID PRN for DIZZINESS, (Rep orted) Nystatin (Nystatin Powder) 15 Gm Powder, 1 APLCT TOP DAILY PRN for ITCHING, (Reported) APPLIES UNDER BELLY Ondansetron (Ondansetron Odt) 4 Mg Tab, 4 MG PO Q4H PRN for NAUSEA, (Reported) Oxycodone HCl (Oxycodone HCl) 5 Mg Tab, 5 MG PO QID PRN for PAIN, (Reported) Ropinirole HCl (Requip) 4 Mg Tab, 4 MG PO BID PRN for RESTLESSNESS, (Reported) Allergies Coded Allergies: metformin (Verified Allergy, Intermediate, RASH, 10/01/18) diltiazem (Verified Adverse Reaction, Intermediate, SWELLING IN HANDS, FEET AND LEGS, 10/01/18) phenazopyridine (Verified Adverse Reaction, Intermediate, CAUSES BLEEDING, 10/05/18) lisinopril (Verified Adverse Reaction, Mild, COUGH, 10/01/18) rosiglitazone (Verified Adverse Reaction, Mild, WATER RETENTION, 10/01/18) PARISH FLORES MD Oct 26, 2018 19:11
[2018-10-26] MEDS: TOPIRAMATE (TopAMAX) 25 MG TAB PO SCH (20:39)
[2018-10-26] MEDS: MONTELUKAST 10 MG TAB PO SCH (20:39)
== END 2018-10-26 21:22 | disposition home health service (06) | DRG 423 ==
LOC: M ED 11:34 → M ED INP 15:59 → M MSPAV 20:37
PROVIDERS: ADMIT Family Medicine; ATTEND Internal Medicine
DX: E72.20 Disorder of urea cycle metabolism, unspecified (principal); I27.20 Pulmonary hypertension, unspecified; K74.60 Unspecified cirrhosis of liver; E11.9 Type 2 diabetes mellitus without complications; I10 Essential (primary) hypertension; D64.9 Anemia, unspecified; R16.1 Splenomegaly, not elsewhere classified; F32.9 Major depressive disorder, single episode, unspecified; G25.81 Restless legs syndrome; K21.0 Gastro-esophageal reflux disease with esophagitis; F17.200 Nicotine dependence, unspecified, uncomplicated; J44.9 Chronic obstructive pulmonary disease, unspecified; G43.709 Chronic migraine without aura, not intractable, without status migrainosus; Z79.82 Long term (current) use of aspirin; Z79.4 Long term (current) use of insulin; Z79.899 Other long term (current) drug therapy; Z88.8 Allergy status to other drugs, medicaments and biological substances

== ENCOUNTER 2018-12-07 17:12 | Emergency (ER) | payer OTHER ==
[~2018-12-07] VITALS: Ht 195.6 cm; Wt 163.7 kg
[~2018-12-07 17:12] MED LIST changes: +FERR325T3 PO; -TRAZ-160 PO; +TRAZ-252 PO
[2018-12-07] MEDS ORDERED: NS 1,000 ML IV ONE (18:00)
[2018-12-07 18:51] LABS: BASO # 0.1 10^3/uL (0.0-0.2); BASO % 1.2 % (0.0-1.0); EOS # 0.1 10^3/uL (0.0-0.50); EOS % 3.1 % (0.0-3.0); HEMATOCRIT 36.3 % (36.0-47.0); HEMOGLOBIN 12.5 g/dl (12.0-15.5); LYMPH # 1.6 10^3/uL (1.5-4.5); MEAN CORPUSCULAR HEMOGLOBIN 32.1 pg (27.0-33.0); MEAN CORPUSCULAR HGB CONC 34.4 g/dl (32.0-36.5); MEAN CORPUSCULAR VOLUME 93.3 fl (80.0-96.0); MONO # 0.3 10^3/uL (0.0-0.8); MONO % 7.1 % (0.0-5.0); NEUTROPHILS # 2.1 10^3/uL (1.8-7.7); NEUTROPHILS % 49.1 % (36.0-66.0); PLATELET COUNT, AUTOMATED 133 10^3/uL (150-450); RED BLOOD COUNT 3.89 10^6/uL (4.00-5.40); WHITE BLOOD COUNT 4.2 10^3/uL (4.0-10.0)
[2018-12-07 19:17] LABS: ALBUMIN 3.3 GM/DL (3.2-5.2); ALT/SGPT 48 U/L (12-78); BILIRUBIN,DIRECT 0.2 MG/DL (0.0-0.2); BILIRUBIN,TOTAL 0.5 MG/DL (0.2-1.0); BLOOD UREA NITROGEN 28 MG/DL (7-18); CALCIUM LEVEL 9.7 MG/DL (8.5-10.1); CARBON DIOXIDE LEVEL 23 MEQ/L (21-32); CHLORIDE LEVEL 112 MEQ/L (98-107); CREATININE FOR GFR 0.99 MG/DL (0.55-1.30); GLOMERULAR FILTRATION RATE > 60.0 (>51); GLUCOSE, FASTING 96 MG/DL (70-100); POTASSIUM SERUM 4.1 MEQ/L (3.5-5.1); SODIUM LEVEL 144 MEQ/L (136-145); TOTAL PROTEIN 6.9 GM/DL (6.4-8.2)
[2018-12-07 19:22] LABS: HEMOGLOBIN A1c 10.9 %
[2018-12-07 22:31] VITALS: BP 135/74
== END 2018-12-07 22:37 | disposition home or self-care (01) ==
LOC: M ED 17:12
DX: E11.649 Type 2 diabetes mellitus with hypoglycemia without coma (principal); E72.20 Disorder of urea cycle metabolism, unspecified; I10 Essential (primary) hypertension; K21.9 Gastro-esophageal reflux disease without esophagitis; Z87.442 Personal history of urinary calculi; G25.0 Essential tremor; Z88.8 Allergy status to other drugs, medicaments and biological substances; Z79.899 Other long term (current) drug therapy; Z79.82 Long term (current) use of aspirin; Z79.4 Long term (current) use of insulin

== ENCOUNTER → 2019-01-27 | Outpatient (REF) | payer OTHER ==
[~2019-01-27] MED LIST changes: +LEXA1TAB PO; -OMEP20CA3 PO; +OMEP20CA4 PO
[2019-01-27 20:37] LABS: ALBUMIN 3.3 GM/DL (3.2-5.2); BILIRUBIN,TOTAL 0.7 MG/DL (0.2-1.0); CALCIUM LEVEL 9.6 MG/DL (8.5-10.1); CHOLESTEROL RISK RATIO 2.854 (<5); CREATININE FOR GFR 1.12 MG/DL (0.55-1.30); GLOMERULAR FILTRATION RATE 54.4 (>51); HEMOGLOBIN A1c 11.6 %; POTASSIUM SERUM 3.9 MEQ/L (3.5-5.1); TOTAL PROTEIN 6.9 GM/DL (6.4-8.2)
[2019-01-27 20:39] LABS: CREATININE, URINE < 13.0 MG/DL; MALB URINE SIEMENS < 5.0 MG/L
== END ==
LOC: M SFHCLERA 15:55
PROVIDERS: ATTEND Family Medicine
DX: E11.319 Type 2 diabetes mellitus with unspecified diabetic retinopathy without macular edema (principal)

== ENCOUNTER 2019-01-29 08:50 | Inpatient (IN) | payer OTHER ==
[~2019-01-29] VITALS: Ht 182.9 cm; Wt 159.1 kg
[2019-01-29] MEDS ORDERED: MORPHINE 2 MG/ML 1ML SYRINGE (J2270) IV ONE (09:00)
[2019-01-29] MEDS ORDERED: ADACEL/BOOSTRIX VACCINE (DIPHTH/PERTUSS/ACELL/TETANUS)0.5ML SYR (90715) IM ONE (09:15)
[2019-01-29 09:22] LABS: VENOUS BASE EXCESS -3.9 (-2.0-2.0); VENOUS HCO3 22.6 MEQ/L (23.0-27.0); VENOUS O2 SATURATION 71.6 % (60.0-80.0); VENOUS PARTIAL PRESSURE CO2 46.1 mmHg (38.0-50.0); VENOUS PARTIAL PRESSURE O2 43.3 mmHg (30.0-50.0); VENOUS PH 7.308 UNITS (7.330-7.430); VENOUS STANDARD HCO3 20.7 MEQ/L
[2019-01-29] MEDS ORDERED: MORPHINE 2 MG/ML 1ML SYRINGE (J2270) SC ONE (09:30)
[2019-01-29 09:32] LABS: BASO % 0.5 % (0.0-1.0); EOS # 0.1 10^3/uL (0.0-0.50); EOS % 1.8 % (0.0-3.0); HEMATOCRIT 38.8 % (36.0-47.0); LYMPH # 0.7 10^3/uL (1.5-4.5); LYMPH % 17.4 % (24.0-44.0); MEAN CORPUSCULAR HEMOGLOBIN 34.5 pg (27.0-33.0); MEAN CORPUSCULAR HGB CONC 36.1 g/dl (32.0-36.5); MEAN CORPUSCULAR VOLUME 95.6 fl (80.0-96.0); MONO # 0.3 10^3/uL (0.0-0.8); MONO % 6.4 % (0.0-5.0); NEUTROPHILS # 2.9 10^3/uL (1.8-7.7); NEUTROPHILS % 73.1 % (36.0-66.0); RED BLOOD COUNT 4.06 10^6/uL (4.00-5.40); WHITE BLOOD COUNT 3.9 10^3/uL (4.0-10.0)
[2019-01-29 09:58] LABS: PLATELET COUNT, AUTOMATED 94 10^3/uL (150-450)
[2019-01-29 10:06] LABS: BILIRUBIN,TOTAL 0.7 MG/DL (0.2-1.0); CREATININE FOR GFR 1.13 MG/DL (0.55-1.30); GLOMERULAR FILTRATION RATE 53.8 (>51); POTASSIUM SERUM 3.9 MEQ/L (3.5-5.1); TOTAL PROTEIN 6.4 GM/DL (6.4-8.2)
--- NOTE | 2019-01-29 10:29 | REP ---
CT of the cervical spine: Axial images are acquired with helical scanning and are reformatted in sagittal and coronal projections. Motion artifact degrades almost all of the images. The posterior elements are suboptimally evaluated. Vertebral body heights, interspacing alignment are normal. There is no listhesis. Prevertebral soft tissues are unremarkable. The facets are normally aligned. The skull base, C1-C2 are unremarkable. Impression: No fracture or listhesis of the skull base, C1 and C2 or of the anterior elements. Posterior elements are suboptimal because of motion artifact. Repeat study when the patient is able to remain quiescent in the scanning gantry is recommended. Electronically Signed by Pedro Pablo Agarwal MD 01/29/2019 10:21 A
[2019-01-29] MEDS ORDERED: LACTULOSE 20 GM/30 ML SYRUP UD PR ONE ×2 (10:30→18:00)
[2019-01-29 11:49] LABS: INR 1.08; PROTHROMBIN TIME 13.7 SECONDS (11.8-14.0)
--- NOTE | 2019-01-29 12:40 | REP ---
Follow-up CT of the brain without IV contrast: Comparison is performed earlier this same date. There is no subdural or epidural hematoma. There is no other intracranial hemorrhage. There is no edema, mass effect or midline shift. The cortical stripe is unremarkable. Ventricles are normal size. The sulci are mildly enlarged compatible with mild diffuse cortical atrophy. The visualized paranasal sinuses and mastoid air cells are clear. Impression: No subdural or other intracranial hemorrhage. Mild diffuse volume loss. Otherwise, negative CT study of the brain. Electronically Signed by Pedro Pablo Agarwal MD 01/29/2019 12:31 P
--- NOTE | 2019-01-29 12:45 | REP ---
Maxillofacial CT without IV contrast, follow-up study: Comparison is a study performed earlier today. Current studies performed without motion artifact. There is no nasal bone fracture. There is no orbit fracture. The ocular lenses and globes are unremarkable. There is no zygoma or maxillary fracture. There is no mandibular fracture. There is evidence for bilateral FESS surgery. There is opacification of a few superior right ethmoid sinus air cells. Impression: No facial bone fracture. Bilateral FESS surgery. There is opacification of a few right superior ethmoid sinus air cells. Electronically Signed by Pedro Pablo Agarwal MD 01/29/2019 12:36 P
--- NOTE | 2019-01-29 13:04 | REP ---
Follow-up CT of the cervical spine: Comparison is the study performed earlier this same date. There is no motion artifact on the current study. Vertebral body heights, interspacing alignment are normal. The facets are normally aligned. The prevertebral soft tissues are normal. C1-C2 and skull base are unremarkable. There are no posterior element fractures. Impression: There is no fracture or listhesis. Electronically Signed by Pedro Pablo Agarwal MD 01/29/2019 12:56 P
[2019-01-29] MEDS ORDERED: ROPI4TAB3 PO (13:25)
[2019-01-29] MEDS ORDERED: HumaLOG INSULIN (NovoLOG) PER UNIT SC STA (13:59)
[2019-01-29] MEDS ORDERED: GLUCAGON FOR INJ 1 MG VIAL (J1610) SC PRN (14:00)
[2019-01-29] MEDS ORDERED: GLUCOSE 4 GM CHEW TABLET PO PRN (14:00)
[2019-01-29] MEDS ORDERED: NS 1,000 ML IV SCH (14:00)
[2019-01-29] MEDS ORDERED: DEXTROSE 50% 50 ML SYRINGE IV PRN (14:00)
[2019-01-29] MEDS ORDERED: MOM 30ML SUSPENSION UDC PO PRN (14:15)
[2019-01-29 15:55] VITALS: BP 135/73
--- NOTE | 2019-01-29 16:10 | HPEPDOC ---
[facility] Medical History & Physical Date of Admission Jan 29, 2019 Date of Service: Jan 29, 2019 Primary Care Physician: MARGI GOVEA PA-C Attending Physician: YESSENIA GRIFFIN MD History and Physical CHIEF COMPLAINT: Fall, altered mental state HISTORY OF PRESENT ILLNESS: Shira is a 53yo female with pertinent past medical history of recurrent hepatic encephalopathy, CHAMPAGNE cirrhosis, and IDDM II, who presented to the ED today after being found at the base of stairs near her home by her son, likely post-mechanical fall. She presented with two lacerations of her right eyebrow and accompanying right eye ecchymosis. Her son states that she has seemed "off" for the past couple weeks, even for her. She was prescribed Lyrica. 3 days ago in the time since he has consumed 18 pills. She has a history of presenting to [facility], with the most recent being October 25, 2018. In the ED, she underwent extensive imaging (CT head w/o, CT maxillofacial w/o, CT cervical spine), which was unremarkable for any fracture, subdural or intracranial hemorrhage. Bowens catheter was placed and she is artery produce greater than thousand cc urine. She was initially given 2 mg subcutaneous mo rphine for pain that had no appreciable effect. She was administered a second dose of morphine, 2 mL IV, that addressed her pain enough so she stayed calm enough to ensure better visualization on repeat CT. At time of initial H&P from hospital's team, she was about to receive 300 mL lactulose. She will be admitted under the care of the hospitalist team to improve her encephalopathy and hyperglycemia. PAST MEDICAL HISTORY: 1. H/o hepatic encephalopathy 2. CHAMPAGNE cirrhosis 3. GERD 4. Pulmonary hypertension 5. Essential hypertension 6. Morbid obesity 7. H/o acute kidney injury 8. Chronic kidney disease stage III PAST SURGICAL HISTORY: C section 1987 gall bladder 1988 breast lump removed, right 1993 endometrial ablation 1998 mass removed from left leg 2010 Left shoulder rotator cuff 2012 Left breast cyst removal 2011 Sinus/ deviated septum 2013 achelies tendon--right 2013 bronchoscopy 2004, 2006 Colonoscopy/ Endoscopy heart catherization 05/2015 D&C & BX of uterine lining 11/2016 heart cath, liver biopsy 04/2017 SOCIAL HISTORY: Current smoker Denies EtOH, other drug use Lives with son and [id number] in [place] FAMILY HISTORY: Father: diagnosed with Diabetes, Hypertension Mother: Hypertension, Heart Disease Siblings: Cancer, Heart Disease sister - of pancreatic cancer; brother with h/o CVD. ALLERGIES: Please see below. REVIEW OF SYSTEMS: Negative other than what is mentioned in HPI HOME MEDICATIONS: Please see below. PHYSICAL EXAMINATION: VITAL SIGNS: Temperature 96F, pulse, 78, respiratory rate 16, blood pressure 155/68, pulse oximetry, 97% on room air. GENERAL APPEARANCE: Extremely somnolent and difficult to arouse female who ap pears older than stated age; poor hygiene HEENT: Areas of what appears to be dirt on teeth, lips and distal tongue; poor dentition; moist and pink mucous membranes; tongue ring present No thyromegaly CARDIOVASCULAR: Regular rate, regular rhythm, normal S1, S2; no audible rubs, gallops or murmurs LUNGS: Clear to auscultation anteriorly and posteriorly bilaterally; no audible wheezes, rhonchi or rales ABDOMEN: Soft, hypoactive bowel sounds, tender to deep palpation left lower quadrant, right lower quadrant, and right upper quadrant. No masses appreciated. EXTREMITIES: Bilateral lower extremity pitting edema; patient was constantly moving both of her legs throughout exam; 2+ radial and posterior tibial pulses bilaterally; 5 cm scar left lower extremity anterior alonzo; onychomycosis bilateral toenails NEUROLOGICAL: Somnolent and difficult to arouse, oriented to self and place; Asterixis present on exam, b/l hands LABORATORY DATA: See below. IMAGING: Cervical spine CT w/o contrast, 01/29- showed no fracture or listhesis Maxillofacial CT w/o contrast, 01/29 showed no facial bone fracture. Bilateral FESS surgery. Opacification of a few right superior ethmoid sinus air cells. Head CT w/o contrast, 01/29- showed no subdural or other intracranial hemorrhage. Mild diffuse volume loss. Otherwise, negative CT study of the brain. MICROBIOLOGY: Please see below. ASSESSMENT & PLAN: 1. Hepatic encephalopathy secondary to noncompliance -Patient has a history of hepatic encephalopathy with multiple prior hospitali zations -Patient is prescribed 30 mL lactulose PO TID to maintain 3-4 bowel movements per day/PRN constipation -Patient's ammonia level measured in ED was significantly elevated at 246; she is difficult to arouse and very somnolent; difficulty thinking at present per patient -Patient will be placed on aspiration pneumonia and fall risk precautions -Patient will be monitored on remote telemetry -Hold sedating medications -Patient made NPO and on IVF -Patient was administered 30 mL lactulose dose, which will be repeated every 6 hours -Continue to reassess patient's mental status -Patient also has a relevant history of CHAMPAGNE cirrhosis 2. Hyperglycemia, likely secondary to poorly controlled insulin dependent diabetes mellitus type 2 -Patient has been diagnosed with IDDM II, and his prescribed to take 80 units long-acting insulin BID, as well as short acting insulin sc achs -Patient's fasting glucose measured in the ED was 465 -Patient is receiving insulin sliding scale protocol; we will continue to monitor patient's serum glucose and adjust accordingly -Patient currently NPO and receiving IVF 3. Morbid obesity BMI 53.6 -Patient currently NPO and receiving IVF -Patient currently receiving ISS 4. GERD 5. Essential hypertension 6. CHAMPAGNE cirrhosis 7. Grade II diastolic heart dysfunction 8. Pulmonary hypertension 9. Restless leg syndrome 10. Chronic kidney disease, stage III witholding all medications for above conditions at this time due to patient's NPO status and somnolence I performed a history and physical examination of the patient and discussed their management with the above documenter. I reviewed the note and agree with the documented findings and plan of care. Vital Signs Vital Signs Date Time Temp Pulse Resp B/P (MAP) Pulse Ox O2 Delivery O2 Flow Rate FiO2 01/29/19 13:31 149/56 (87) 01/29/19 13:30 76 97 01/29/19 11:35 16 01/29/19 10:19 96.0 01/29/19 09:20 Room Air Laboratory Data Labs 24H Laboratory Tests 2 01/29/19 08:59: Immature Granulocyte % (Auto) 0.8, White Blood Count 3.9L, Red Blood Count 4.06, Hemoglobin 14.0, Hematocrit 38.8, Mean Corpuscular Volume 95.6, Mean Corpuscular Hemoglobin 34.5H, Mean Corpuscular Hemoglobin Concent 36.1, Red Cell Distribution Width 13.6, Platelet Count 94L, Neutrophils (%) (Auto) 73.1H, Lymphocytes (%) (Auto) 17.4L, Monocytes (%) (Auto) 6.4H, Eosinophils (%) (Auto) 1.8, Basophils (%) (Auto) 0.5, Neutrophils # (Auto) 2.9, Lymphocytes # (Auto) 0.7L, Monocytes # (Auto) 0.3, Eosinophils # (Auto) 0.1, Basophils # (Auto) 0.0, Nucleated Red Blood Cells % (auto) 0.0, Immature Platelet Fraction 1.9, Anion Gap 7L, Glomerular Filtration Rate 53.8, Blood Urea Nitrogen 34#H, Creatinine 1.13, Sodium Level 144#, Potassium Level 3.9, Chloride Level 112H, Carbon Dioxide Level 25, Calcium Level 9.0, Aspartate Amino Transf (AST/SGOT) 55H, Alanine Aminotransferase (ALT/SGPT) 50, Alkaline Phosphatase 138H, Total Bilirubin 0.7, Total Protein 6.4, Albumin 3.0L, Ammonia 246H, Albumin/Globulin Ratio 0.88L 01/29/19 09:14: Blood Gas Bicarbonate Standard 20.7, Venous Blood pH 7.308L, Venous Blood Partial Pressure CO2 46.1, Venous Blood Partial Pressure O2 43.3, Venous Blood Total Carbon Dioxide 24.0, Venous Blood HCO3 22.6L, Venous Blood Oxygen Saturation 71.6, Venous Blood Base Excess -3.9L 01/29/19 09:16: 01/29/19 11:22: Prothrombin Time 13.7, Prothromb Time International Ratio 1.08 CBC/BMP Laboratory Tests 01/29/19 08:59 Red Blood Count 4.06, Mean Corpuscular Volume 95.6, Mean Corpuscular Hemoglobin 34.5 H, Mean Corpuscular Hemoglobin Concent 36.1, Red Cell Distribution Width 13.6, Neutrophils (%) (Auto) 73.1 H, Lymphocytes (%) (Auto) 17.4 L, Monocytes (%) (Auto) 6.4 H, Eosinophils (%) (Auto) 1.8, Basophils (%) (Auto) 0.5, Neutrophils # (Auto) 2.9, Lymphocytes # (Auto) 0.7 L, Monocytes # (Auto) 0.3, Eosinophils # (Auto) 0.1, Basophils # (Auto) 0.0, Calcium Level 9.0, Aspartate Amino Transf (AST/SGOT) 55 H, Alanine Aminotransferase (ALT/SGPT) 50, Alkaline Phosphatase 138 H, Total Bilirubin 0.7, Total Protein 6.4, Albumin 3.0 L Home Medications Scheduled Aspirin (Aspirin EC) 81 Mg Tabec, 81 MG PO DAILY Bumetanide (Bumetanide) 2 Mg Tab, 2 MG PO BID Bupropion HCl (Bupropion Xl) 300 Mg Tab, 300 MG PO DAILY Carvedilol (Carvedilol) 25 Mg Tab, 25 MG PO BID Ergocalciferol (Vitamin D2) (Vitamin D2) 2,000 Unit Cap, 2,000 UNIT PO DAILY Escitalopram Oxalate (Lexapro) 10 Mg Tablet, 10 MG PO BID Ferrous Sulfate (Ferrous Sulfate) 325 Mg Tablet.dr, 325 MG PO BID Insulin Glargine,Hum.rec.anlog (Basaglar Kwikpen U-100) 100 Unit/Ml Inj, 80 UNIT SC BID Insulin Lispro (Admelog) 100 Unit/Ml Inj, 0 SC ACHS PER SLIDING SCALE Losartan Potassium (Losartan Potassium) 25 Mg Tablet, 25 MG PO DAILY Montelukast Sodium (Singulair) 10 Mg Tab, 10 MG PO QHS Omeprazole (Omeprazole) 20 Mg Cap, 20 MG PO DAILY Potassium Chloride (Potassium Chloride) 10 Meq Cap, 10 MEQ PO DAILY Pregabalin (Lyrica) 75 Mg Cap, 75 MG PO BID Rifaximin (Xifaxan) 550 Mg Tab, 550 MG PO BID Ropinirole HCl (Ropinirole HCl) 4 Mg Tablet, 4 MG PO BID Spironolactone (Spironolactone) 50 Mg Tab, 50 MG PO DAILY Topiramate (Topiramate) 50 Mg Tablet, 50 MG PO QHS Scheduled PRN Albuterol Sulfate (Proair Hfa) 108 Mcg/Act Aer, 2 PUFF INH Q4H PRN for SHORTNESS OF BREATH Beclomethasone Dipropionate (Qvar Redihaler) 40 Mcg/Act Aer, 2 PUFFS INH BID PRN for SHORTNESS OF BREATH Diclofenac Sodium (Diclofenac Sodium) 1 % Gel, 1 DOSE TOP QID PRN for PAIN APPLIES TO LEFT KNEE AND LEFT WRIST Fluticasone Propionate (Fluticasone Propionate) 50 Mcg/Act Spr, 1 SPRAY NA DAILY PRN for NASAL CONGESTION Ipratropium/Albuterol Sulfate (Iprat-Albut 0.5-3(2.5) mg/3 ml) 1 Petty Petty, 1 PETTY INH QID PRN for SHORTNESS OF BREATH Lactulose (Lactulose) 10 Gm/15 Ml Solution, 30 ML PO TID PRN for CONSTIPATION take medication to maintain 3-4 bowel movements per day Meclizine HCl (Meclizine HCl) 25 Mg Tab, 25 MG PO TID PRN for DIZZINESS Nystatin (Nystatin Powder) 15 Gm Powder, 1 APLCT TOP DAILY PRN for ITCHING APPLIES UNDER BELLY Ondansetron (Ondansetron Odt) 4 Mg Tab, 4 MG PO Q4H PRN for NAUSEA Oxycodone HCl (Oxycodone HCl) 5 Mg Tab, 5 MG PO QID PRN for PAIN Allergies Coded Allergies: metformin (Verified Allergy, Intermediate, RASH, 10/01/18) diltiazem (Verified Adverse Reaction, Intermediate, SWELLING IN HANDS, FE ET AND LEGS, 10/01/18) phenazopyridine (Verified Adverse Reaction, Intermediate, CAUSES BLEEDING, 10/05/18) lisinopril (Verified Adverse Reaction, Mild, COUGH, 10/01/18) rosiglitazone (Verified Adverse Reaction, Mild, WATER RETENTION, 10/01/18) A-FIB/CHADSVASC A-FIB History Current/History of A-Fib/PAF?: No Current PO Anticoag Therapy: No NILSON ZELAYA PGY-1 Jan 29, 2019 16:00 YESSENIA GRIFFIN MD Jan 31, 2019 16:34
[2019-01-29] MEDS: HumaLOG INSULIN (NovoLOG) PER UNIT SC SCH (17:55)
[2019-01-29] MEDS ORDERED: LACTULOSE 20 GM/30 ML SYRUP UD PO SCH (18:00)
[2019-01-29] MEDS ORDERED: SLF 3 ML SYR IV PRN (18:15)
[2019-01-29 20:00] VITALS: BP 180/84
[2019-01-29] MEDS: LACTULOSE 20 GM/30 ML SYRUP UD PO SCH ×2 (20:00→21:55)
[2019-01-29] MEDS ORDERED: hydrALAZINE INJ 20 MG/ML VIAL IV PRN (20:15)
[2019-01-29] MEDS: rifAXIMin 550 MG TAB (XIFAXAN) PO SCH (20:56)
[2019-01-29] MEDS: SLF 3 ML SYR IV SCH (20:57)
[2019-01-29] MEDS: DOCUSATE SODIUM 100 MG CAP PO SCH (20:57)
[2019-01-29 23:59] VITALS: BP 156/60
[2019-01-30] MEDS: HumaLOG INSULIN (NovoLOG) PER UNIT SC SCH ×5 (00:05→21:54)
[2019-01-30] MEDS: LACTULOSE 20 GM/30 ML SYRUP UD PO SCH ×12 (00:05→22:00)
[2019-01-30 03:59] LABS: HEMATOCRIT 40.9 % (36.0-47.0); HEMOGLOBIN 14.3 g/dl (12.0-15.5); MEAN CORPUSCULAR HEMOGLOBIN 34.2 pg (27.0-33.0); MEAN CORPUSCULAR VOLUME 97.8 fl (80.0-96.0); PLATELET COUNT, AUTOMATED 102 10^3/uL (150-450); RED BLOOD COUNT 4.18 10^6/uL (4.00-5.40); WHITE BLOOD COUNT 3.9 10^3/uL (4.0-10.0)
[2019-01-30 04:00] VITALS: BP_SYST 130; BP_SYST 140; BP_DIAS 58; BP_DIAS 70
[2019-01-30 04:23] LABS: ALBUMIN 2.9 GM/DL (3.2-5.2); ALT/SGPT 56 U/L (12-78); BILIRUBIN,TOTAL 1.6 MG/DL (0.2-1.0); BLOOD UREA NITROGEN 24 MG/DL (7-18); CALCIUM LEVEL 9.1 MG/DL (8.5-10.1); CARBON DIOXIDE LEVEL 24 MEQ/L (21-32); CHLORIDE LEVEL 121 MEQ/L (98-107); GLOMERULAR FILTRATION RATE > 60.0 (>51); GLUCOSE, FASTING 255 MG/DL (70-100); MAGNESIUM LEVEL 2.1 MG/DL (1.8-2.4); POTASSIUM SERUM 3.3 MEQ/L (3.5-5.1); SODIUM LEVEL 152 MEQ/L (136-145); TOTAL PROTEIN 6.3 GM/DL (6.4-8.2)
[2019-01-30] MEDS: SLF 3 ML SYR IV SCH ×3 (06:06→21:41)
[2019-01-30 07:59] LABS: CREATININE FOR GFR 1.08 MG/DL (0.55-1.30); GLOMERULAR FILTRATION RATE 56.7 (>51); POTASSIUM SERUM 3.3 MEQ/L (3.5-5.1)
[2019-01-30 08:00] VITALS: BP 146/68
[2019-01-30] MEDS: DOCUSATE SODIUM 100 MG CAP PO SCH ×2 (09:00→21:42)
[2019-01-30] MEDS ORDERED: NYSTATIN 100,000 UNITS/GM TOPICAL PWD 15 GM TOP PRN (09:30)
[2019-01-30] MEDS ORDERED: FLUTICASONE PROP 0.05% NASAL SPRAY 16 GM (FLONASE) PRN (09:30)
[2019-01-30] MEDS ORDERED: ONDANSETRON 4 MG ORAL DISINTEGRATING TAB (Q0162 PER 1MG) PO PRN (09:30)
[2019-01-30] MEDS ORDERED: ALBUTEROL 90 MCG/ACT 8GM HFA INHALER INH PRN (09:30)
[2019-01-30] MEDS ORDERED: MECLIZINE 25 MG TABLET PO PRN (09:30)
[2019-01-30] MEDS: CARVedilol 12.5 MG TAB PO SCH ×2 (09:45→21:00)
[2019-01-30] MEDS: ASPIRIN 81 MG ENTERIC TAB PO SCH (09:45)
[2019-01-30] MEDS: POTASSIUM CHLORIDE 10 MEQ SR TABLET PO SCH (09:45)
[2019-01-30] MEDS: OMEPRAZOLE 20 MG CAP PO SCH (09:45)
[2019-01-30] MEDS: rifAXIMin 550 MG TAB (XIFAXAN) PO SCH ×2 (09:45→21:40)
[2019-01-30] MEDS: FERROUS SULFATE 325MG TAB PO SCH ×2 (09:45→21:42)
[2019-01-30] MEDS: buPROPion **XL** TABLET 150MG (WELLBUTRIN XL) PO SCH (09:46)
[2019-01-30] MEDS: LOSARTAN 25 MG TAB PO SCH (09:46)
[2019-01-30] MEDS: ESCITALOPRAM OXALATE 10 MG TAB (LEXAPRO) PO SCH ×2 (09:46→21:41)
[2019-01-30] MEDS: D5W 1,000 ML IV SCH ×2 (09:47→23:14)
[2019-01-30 12:00] VITALS: BP 138/66
--- NOTE | 2019-01-30 12:24 | IPNPDOC ---
Date Seen The patient was seen on 01/30/19. Progress Note SUBJECTIVE: Patient tells that she is feeling significantly better today she is more awake she does not feel is cloudy. She denies any significant pain to the right side of her head she does not remember the circumstances of her fall other than feeling cloudy and her judgment in her thinking and the hours prior to it otherwise patient denies chest pain, shortness breath, nausea, vomiting, fevers, chills OBJECTIVE PHYSICAL EXAMINATION: VITAL SIGNS: Please see below. GENERAL: Pleasant morbidly obese female lying flat in bed awake alert oriented speaking in complete sentences no acute distress HEENT: Moist mucous membranes no elevation in CVP, small laceration of her right eyebrow ecchymosis around her right periorbital region CARDIOVASCULAR: S1 S2 regular no additional heart sounds appreciated. RESPIRATORY: Clear to auscultation bilaterally. ABDOMINAL: Bowel sounds present abdomen soft and nontender, grossly obese EXTREMITIES: No clubbing cyanosis, 1+ edema, still demonstrates asterixis today NEUROLOGICAL: Spontaneously moves all 4 extremities cranial 2 through 12 grossly intact no gross focal deficits appreciated PSYCHOLOGICAL: Appropriate LABORATORY DATA, MICROBIOLOGY: Please see below. IMAGING STUDIES: CT spine:No fracture or listhesis of the skull base, C1 and C2 or of the anterior elements. Posterior elements are suboptimal because of motion artifact. Repeat study when the patient is able to remain quiescent in the scanning gantry is recommended. Maxillofacial CT:No facial bone fracture. Bilateral FESS surgery. There is opacification of a few right superior ethmoid sinus air cells. CT head:No subdural or other intracranial hemorrhage. Mild diffuse volume loss. Otherwise, negative CT study of the brain. Cervical spine CT:There is no fracture or listhesis. ASSESSMENT AND PLAN: This is a 53-year-old female with hepatic encephalopathy. PROBLEMS: 1. Hepatic encephalopathy: Yesterday she was quite obtunded and difficult to arouse however today she is awake alert and oriented and conversant. She is certainly improved her ammonia level has decreased she still has asterixis on exam I suspect will continue to benefit with further treatment with lactulose however we can decrease the frequency to every 6 hours and hold for greater than 4-6 bowel movements per day. She did receive 2 lactulose enemas yesterday. Said that she had been having several good balance at home she does not otherwise she had a decompensation elevation in her ammonia level but states that this is l ikely the reason why she fell she didn't quite cloudy and had difficulty standing on alert in the hours leading up to her fall 2. Diabetes: Fingersticks are elevated we'll provide her with sliding-scale coverage and additional coverage as needed she is hypernatremic and I suspect she would benefit from D5 to treat this however this will drive her sugars up will be vigilant about monitoring her glucose. Now that she is more awake and alert we'll provide her with a 2 g sodium consistent carbohydrate diet 3. Mode obesity:, Complicated care. 4. Restless leg syndrome: Continue with the Requip twice a day. 5. Chronic pain: Continue with Lyrica and topiramate 6. Ponce cirrhosis: We'll resume her spironolactone and Bumex as well as potassium supplementation continue with lactulose she is already on rifaximin. Continue with carvedilol 7. Gastroesophageal reflux disease: Continue with omeprazole 8. Mood disorder: Continue with bupropion Lexapro 9. Vertigo: Continue with Meclizine when necessary 10. Iron deficiency anemia: Continue supplementation 11. Hypertension: Continue with carvedilol as well as Bumex and spironolactone and losartan DVT prophylaxis: Thrombocytopenia related to liver cirrhosis, sequentials and teds DISPOSITION: Pending clinical improvement, PT. VS, I&O, 24H, Fishbone Vital Signs/I&O Vital Signs Date Time Temp Pulse Resp B/P (MAP) Pulse Ox O2 Delivery O2 Flow Rate FiO2 01/30/19 09:46 146/68 01/30/19 09:45 84 01/30/19 08:00 98.3 20 96 01/29/19 09:20 Room Air I&O- Last 24 Hours up to 6 AM 01/30/19 06:00 Intake Total 0 ml Output Total 2200 ml Balance -2200 ml Laboratory Data 24H LABS Laboratory Tests 2 01/29/19 17:51: Bedside Glucose (Misc Panel) 244H 01/29/19 23:59: Bedside Glucose (Misc Panel) 258H 01/30/19 03:53: Nucleated Red Blood Cells % (auto) 0.0, Anion Gap 7L, Glomerular Filtration Rate > 60.0, Blood Urea Nitrogen 24H, Creatinine 1.00, Sodium Level 152#H, Potassium Level 3.3L, Chloride Level 121H, Carbon Dioxide Level 24, Calcium Level 9.1, Aspartate Amino Transf (AST/SGOT) 69H, Alanine Aminotransferase (ALT/SGPT) 56, Alkaline Phosphatase 155H, Total Bilirubin 1.6#H, Total Protein 6.3L, Albumin 2.9L, Magnesium Level 2.1, Ammonia 60H, Albumin/Globulin Ratio 0.85L 01/30/19 07:24: Anion Gap 7L, Glomerular Filtration Rate 56.7, Blood Urea Nitrogen 27H, Creatinine 1.08, Sodium Level 153H, Potassium Level 3.3L, Chloride Level 125H, Carbon Dioxide Level 21, Calcium Level 9.0 01/30/19 12:06: Bedside Glucose (Misc Panel) 454H CBC/BMP Laboratory Tests 01/30/19 03:53 Red Blood Count 4.18, Mean Corpuscular Volume 97.8 H, Mean Corpuscular Hemoglobin 34.2 H, Mean Corpuscular Hemoglobin Concent 35.0, Red Cell Distribution Width 13.9, Calcium Level 9.1, Aspartate Amino Transf (AST/SGOT) 69 H, Alanine Aminotransferase (ALT/SGPT) 56, Alkaline Phosphatase 155 H, Total Bilirubin 1.6 #H, Total Protein 6.3 L, Albumin 2.9 L 01/30/19 07:24 Calcium Level 9.0 YESSENIA GRIFFIN MD Jan 30, 2019 12:24
[2019-01-30] MEDS: BUMETANIDE 1 MG TAB PO SCH ×2 (12:29→17:30)
[2019-01-30] MEDS ORDERED: HumaLOG INSULIN (NovoLOG) PER UNIT SC ONE ×2 (12:30→18:00)
[2019-01-30] MEDS: PREGABALIN 75 MG CAP(LYRICA) PO SCH ×2 (13:11→21:40)
[2019-01-30] MEDS: SPIRONOLACTONE 50 MG TAB PO SCH (13:12)
[2019-01-30] MEDS: rOPINIRole 1MG TAB PO SCH ×2 (14:19→21:41)
[2019-01-30 16:00] VITALS: BP 144/65
[2019-01-30 20:00] VITALS: BP 119/66
--- NOTE | 2019-01-30 21:11 | ECGEPIP ---
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
[2019-01-30] MEDS: TOPIRAMATE (TopAMAX) 25 MG TAB PO SCH (21:40)
[2019-01-30] MEDS: MONTELUKAST 10 MG TAB PO SCH (21:41)
[2019-01-30] MEDS ORDERED: LEVEMIR (INSULIN DETEMIR) 1 UNITS/0.01ML SC ONE (22:30)
[2019-01-30] MEDS ORDERED: oxyCODONE 5MG TAB PO ONE (23:15)
[2019-01-31] VITALS: BP 127/88
[2019-01-31] MEDS: LACTULOSE 20 GM/30 ML SYRUP UD PO SCH ×8 (01:51→23:36)
[2019-01-31 04:00] VITALS: BP 124/59
[2019-01-31] MEDS ORDERED: oxyCODONE 5MG TAB PO ONE (04:00)
[2019-01-31 06:22] LABS: HEMATOCRIT 37.8 % (36.0-47.0); HEMOGLOBIN 13.2 g/dl (12.0-15.5); MEAN CORPUSCULAR HEMOGLOBIN 33.4 pg (27.0-33.0); MEAN CORPUSCULAR HGB CONC 34.9 g/dl (32.0-36.5); MEAN CORPUSCULAR VOLUME 95.7 fl (80.0-96.0); PLATELET COUNT, AUTOMATED 114 10^3/uL (150-450); RED BLOOD COUNT 3.95 10^6/uL (4.00-5.40); WHITE BLOOD COUNT 5.1 10^3/uL (4.0-10.0)
[2019-01-31 06:44] LABS: ALBUMIN 2.9 GM/DL (3.2-5.2); BILIRUBIN,TOTAL 1.2 MG/DL (0.2-1.0); CALCIUM LEVEL 8.5 MG/DL (8.5-10.1); CREATININE FOR GFR 1.23 MG/DL (0.55-1.30); GLOMERULAR FILTRATION RATE 48.8 (>51); POTASSIUM SERUM 3.3 MEQ/L (3.5-5.1); TOTAL PROTEIN 6.7 GM/DL (6.4-8.2)
[2019-01-31] MEDS: SLF 3 ML SYR IV SCH ×3 (06:58→20:58)
--- NOTE | 2019-01-31 07:25 | REP ---
Maxillofacial CT: Axial images are acquired with helical scanning and a reformatted sagittal coronal projections. Motion artifact degrades many of the images. There is no nasal bone fracture. There is no orbit fracture. No zygomatic arch fracture. There is no maxilla fracture. No mandible fracture or dislocation. There is opacification of a few right superior ethmoid sinus air cells. The paranasal sinuses are otherwise unremarkable. Impression: Image degradation from motion artifact. No gross facial bone fracture. Electronically Signed by Pedro Pablo Agarwal MD 01/29/2019 10:06 A
--- NOTE | 2019-01-31 07:25 | REP ---
A CT of the brain without IV contrast: Motion artifact degrades almost all of the images. Therefore, the technologist repeated the scan. However, there is significant motion artifact on the repeat scan. The the patient is unable to remain quiescent in the scanning gantry in spite of immobilization techniques. Intracranial hemorrhage cannot be excluded on the basis of this study. Impression: Suboptimal study. Recommend repeat study when the patient can remain quiescent. Electronically Signed by Pedro Pablo Agarwal MD 01/29/2019 09:56 A
[2019-01-31 08:00] VITALS: BP 140/79
[2019-01-31] MEDS: HumaLOG INSULIN (NovoLOG) PER UNIT SC SCH ×4 (08:03→20:57)
[2019-01-31] MEDS: POTASSIUM CHLORIDE 10 MEQ SR TABLET PO SCH (08:48)
[2019-01-31] MEDS: rOPINIRole 1MG TAB PO SCH ×2 (08:48→20:58)
[2019-01-31] MEDS: FERROUS SULFATE 325MG TAB PO SCH ×2 (08:49→20:58)
[2019-01-31] MEDS: BUMETANIDE 1 MG TAB PO SCH ×2 (08:49→16:10)
[2019-01-31] MEDS: OMEPRAZOLE 20 MG CAP PO SCH (08:49)
[2019-01-31] MEDS: PREGABALIN 75 MG CAP(LYRICA) PO SCH ×2 (08:49→20:57)
[2019-01-31] MEDS: ESCITALOPRAM OXALATE 10 MG TAB (LEXAPRO) PO SCH ×2 (08:49→20:57)
[2019-01-31] MEDS: SPIRONOLACTONE 50 MG TAB PO SCH (08:49)
[2019-01-31] MEDS: ASPIRIN 81 MG ENTERIC TAB PO SCH (08:50)
[2019-01-31] MEDS: buPROPion **XL** TABLET 150MG (WELLBUTRIN XL) PO SCH (08:50)
[2019-01-31] MEDS: rifAXIMin 550 MG TAB (XIFAXAN) PO SCH ×2 (08:50→20:58)
[2019-01-31] MEDS: CARVedilol 12.5 MG TAB PO SCH ×2 (08:51→20:58)
[2019-01-31] MEDS: LOSARTAN 25 MG TAB PO SCH (08:51)
[2019-01-31] MEDS: DOCUSATE SODIUM 100 MG CAP PO SCH ×2 (08:51→20:58)
[2019-01-31] MEDS ORDERED: LEVEMIR (INSULIN DETEMIR) 1 UNITS/0.01ML SC SCH (09:00)
[2019-01-31] MEDS ORDERED: POTASSIUM CHLORIDE 10 MEQ SR TABLET PO ONE (10:00)
[2019-01-31 11:38] VITALS: BP 136/65
--- NOTE | 2019-01-31 14:41 | IPNPDOC ---
Subjective Date Seen The patient was seen on 01/31/19. Subjective Chief Complaint/HPI Patient reports feeling well today, no episodes of confusion of feeling cloudy overnight. She states she still feels achy from her fall, but no worsening pain since yesterday. She denies any new complaints today. She states she does sometimes use a walker or cane at home, but uses them as she feels necessary. Constitutional: Denies: Chills, Fever, Night Sweats ENT: Denies: Head Aches Pulmonary: Denies: Dyspnea, Cough Cardiovascular: Denies: Chest Pain, Palpitations, Lt Headedness Gastrointestinal: Denies: Nausea, Vomiting, Abdominal Pain, Diarrhea, Constipation Genitourinary: Denies: Dysuria, Frequency Neurological: Denies: Weakness, Numbness, Change in speech, Confusion Psych: Reports: Mood Normal Objective Physical Examination General Exam: Positive: Alert, Cooperative, No Acute Distress Eye Exam: Positive: PERRLA, Conjunctiva & lids normal; Negative: Sclera icteric ENT Exam: Positive: Atraumatic, Mucous membr. moist/pink Neck Exam: Positive: Supple; Negative: JVD Chest Exam: Positive: Clear to auscultation, Normal air movement; Negative: Rales, Rhonchi, Wheezing Heart Exam: Positive: Rate Normal, Normal S1, Normal S2; Negative: Murmurs, Rubs Abdomen Exam: Positive: Normal bowel sounds, Soft; Negative: Tenderness, Hepatospenomegaly Extremity Exam: Positive: Normal pulses; Negative: Cyanosis, Edema Skin Exam: Positive: Nl turgor and temperature Neuro Exam: Positive: Normal Speech, Strength at 5/5 X4 ext, Cranial Nerves 3- 12 NL Psych Exam: Positive: Mental status NL, Mood NL, Oriented x 3 Assessment /Plan Assessment This is a 53-year-old female who presented after a fall secondary to mental status change secondary to hepatic encephalopathy. Plan/VTE VTE Prophylaxis Ordered?: Yes Plan 1. Hepatic encephalopathy: She initially presented after a fall which was thought to occur due to mental status change secondary to hepatic encephalopathy. Her ammonia level was elevated on presentation and has improved. She reports taking her lactulose regularly at home. Her mental status has since improved and she remains awake alert, oriented, and conversant this morning. Continue with lactulose and hold for greater than 4-6 bowel movements per day. Continue rifaximin. Monitor mental status for changes. PT and OT evaluations pending. 2. Diabetes: Patient is on sliding-scale insulin coverage. She is on basal insulin at home. Will start 40mg BID basal insulin coverage to help with glucose control. 3. Restless leg syndrome: Continue Requip. 4. Chronic pain: Continue with home Lyrica, topiramate, and as needed oxycodone. 5. Ponce cirrhosis: Continue with home medications including lactulose, rifaximin, spironolactone, Bumex, and carvedilol. Continue potassium supplement. 6. GERD: Continue omeprazole 7. Mood disorder: Continue with bupropion and Lexapro. 8. Vertigo: Continue with Meclizine as needed. 9. Iron deficiency anemia: Continue iron supplementation. 10. Hypertension: Continue with Carvedilol, Bumex, spironolactone, and losartan. 11. Morbid obesity: Complicates care. Disposition Pending PT evaluation VS, I&O, 24H, Fishbone Vital Signs/I&O Vital Signs Date Time Temp Pulse Resp B/P (MAP) Pulse Ox O2 Delivery O2 Flow Rate FiO2 01/31/19 11:38 97.1 70 18 136/65 (88) 95 01/29/19 09:20 Room Air I&O- Last 24 Hours up to 6 AM 01/31/19 05:59 Intake Total 3960 ml Output Total 501 ml Balance 3459 ml Laboratory Data 24H LABS Laboratory Tests 2 01/30/19 17:00: Bedside Glucose (Misc Panel) 349H 01/30/19 21:29: Bedside Glucose (Misc Panel) 397H 01/31/19 06:03: Nucleated Red Blood Cells % (auto) 0.0, Anion Gap 8, Glomerular Filtration Rate 48.8L, Blood Urea Nitrogen 23H, Creatinine 1.23, Sodium Level 139#, Potassium Level 3.3L, Chloride Level 111H, Carbon Dioxide Level 20L, Calcium Level 8.5, Aspartate Amino Transf (AST/SGOT) 44H, Alanine Aminotransferase (ALT/SGPT) 53, Alkaline Phosphatase 159H, Total Bilirubin 1.2H, Total Protein 6.7, Albumin 2.9L, Albumin/Globulin Ratio 0.76L 01/31/19 11:49: Bedside Glucose (Misc Panel) 372H CBC/BMP Laboratory Tests 01/31/19 06:03 Red Blood Count 3.95 L, Mean Corpuscular Volume 95.7, Mean Corpuscular Hemoglobin 33.4 H, Mean Corpuscular Hemoglobin Concent 34.9, Red Cell Distribution Width 13.6, Calcium Level 8.5, Aspartate Amino Transf (AST/SGOT) 44 H, Alanine Aminotransferase (ALT/SGPT) 53, Alkaline Phosphatase 159 H, Total Bilirubin 1.2 H, Total Protein 6.7, Albumin 2.9 L TESSIE ROCHA PGY-1 Jan 31, 2019 14:11
[2019-01-31 16:00] VITALS: BP 130/64
[2019-01-31] MEDS: oxyCODONE 5MG TAB PO PRN (16:46)
[2019-01-31 19:05] VITALS: BP 132/65
[2019-01-31] MEDS: LEVEMIR (INSULIN DETEMIR) 1 UNITS/0.01ML SC SCH (20:56)
[2019-01-31] MEDS: MONTELUKAST 10 MG TAB PO SCH (20:57)
[2019-01-31] MEDS: TOPIRAMATE (TopAMAX) 25 MG TAB PO SCH (20:57)
[2019-02-01] VITALS: BP 136/74
[2019-02-01] MEDS: oxyCODONE 5MG TAB PO PRN (00:09)
[2019-02-01 04:00] VITALS: BP 119/58
[2019-02-01] MEDS: SLF 3 ML SYR IV SCH (05:22)
[2019-02-01] MEDS: LACTULOSE 20 GM/30 ML SYRUP UD PO SCH (05:22)
[2019-02-01 06:01] LABS: HEMATOCRIT 35.3 % (36.0-47.0); HEMOGLOBIN 12.6 g/dl (12.0-15.5); MEAN CORPUSCULAR HGB CONC 35.7 g/dl (32.0-36.5); MEAN CORPUSCULAR VOLUME 95.1 fl (80.0-96.0); RED BLOOD COUNT 3.71 10^6/uL (4.00-5.40); WHITE BLOOD COUNT 4.7 10^3/uL (4.0-10.0)
[2019-02-01 06:30] LABS: ALBUMIN 2.7 GM/DL (3.2-5.2); BILIRUBIN,TOTAL 0.8 MG/DL (0.2-1.0); CALCIUM LEVEL 8.3 MG/DL (8.5-10.1); CREATININE FOR GFR 1.1 MG/DL (0.55-1.30); GLOMERULAR FILTRATION RATE 55.5 (>51); POTASSIUM SERUM 3.4 MEQ/L (3.5-5.1); TOTAL PROTEIN 6.2 GM/DL (6.4-8.2)
[2019-02-01 06:37] LABS: PLATELET COUNT, AUTOMATED 99 10^3/uL (150-450)
[2019-02-01 08:00] VITALS: BP 115/71
[2019-02-01] MEDS ORDERED: POTASSIUM CHLORIDE 10 MEQ SR TABLET PO ONE (08:00)
[2019-02-01] MEDS: rOPINIRole 1MG TAB PO SCH (08:16)
[2019-02-01] MEDS: BUMETANIDE 1 MG TAB PO SCH (08:17)
[2019-02-01] MEDS: PREGABALIN 75 MG CAP(LYRICA) PO SCH (08:17)
[2019-02-01] MEDS: FERROUS SULFATE 325MG TAB PO SCH (08:17)
[2019-02-01] MEDS: ASPIRIN 81 MG ENTERIC TAB PO SCH (08:17)
[2019-02-01] MEDS: buPROPion **XL** TABLET 150MG (WELLBUTRIN XL) PO SCH (08:18)
[2019-02-01] MEDS: DOCUSATE SODIUM 100 MG CAP PO SCH (08:18)
[2019-02-01] MEDS: rifAXIMin 550 MG TAB (XIFAXAN) PO SCH (08:18)
[2019-02-01] MEDS: ESCITALOPRAM OXALATE 10 MG TAB (LEXAPRO) PO SCH (08:18)
[2019-02-01] MEDS: SPIRONOLACTONE 50 MG TAB PO SCH (08:18)
[2019-02-01] MEDS: OMEPRAZOLE 20 MG CAP PO SCH (08:18)
[2019-02-01 08:20] VITALS: BP 115/71
[2019-02-01] MEDS: LOSARTAN 25 MG TAB PO SCH (08:20)
[2019-02-01] MEDS: CARVedilol 12.5 MG TAB PO SCH (08:21)
[2019-02-01] MEDS: HumaLOG INSULIN (NovoLOG) PER UNIT SC SCH (08:21)
[2019-02-01] MEDS: LEVEMIR (INSULIN DETEMIR) 1 UNITS/0.01ML SC SCH (08:22)
[2019-02-01 08:33] VITALS: BP 147/71
[2019-02-01] MEDS: POTASSIUM CHLORIDE 10 MEQ SR TABLET PO SCH (09:28)
--- NOTE | 2019-02-01 17:24 | DS.PDOC ---
Discharge Summary General Date of Admission Jan 29, 2019 at 13:27 Primary Care Physician: NOEMI KIM MD Attending Physician: CHALO LEAL MD Discharge Summary PROCEDURES PERFORMED DURING STAY: None. ADMITTING DIAGNOSES: 1. Hepatic Encephalopathy 2. Uncontrolled diabetes mellitus 3. Morbid obesity 4. GERD 5. Essential hypertension 6. CHAMPAGNE cirrhosis 7. Grade II diastolic heart dysfunction 8. Pulmonary hypertension 9. Restless leg syndrome 10. Chronic kidney disease, stage III DISCHARGE DIAGNOSES: 1. Hepatic Encephalopathy 2. Diabetes mellitus 3. Morbid obesity 4. GERD 5. Essential hypertension 6. CHAMPAGNE cirrhosis 7. Grade II diastolic heart dysfunction 8. Pulmonary hypertension 9. Restless leg syndrome 10. Chronic kidney disease, stage III COMPLICATIONS/CHIEF COMPLAINT: Hepatic Encephalopathy. HISTORY OF PRESENT ILLNESS: Patient's 53-year-old female with a history of recurrent hepatic encephalopathy, and CHAMPAGNE cirrhosis, and diabetes mellitus, who presented to the emergency room after a fall when she was found down by her son with lacerations on her right eyebrow and ecchymosis along the right side. She was found by her son who also stated that she seemed "off" for the prior couple weeks. The patient also reported she had been feeling cloudy the past few days. She had been reportedly prescribed Lyrica 3 days before presentation and had consumed 18 pills in that time. . She reports compliance with her medications including her lactulose. On presentation in the ED she was found to have elevated ammonia levels and hyperglycemia. HOSPITAL COURSE: Following treatment of her hepatic encephalopathy with lactulose and rifaximin, the patient's mental status improved. She became oriented to person, place and time. She continued to receive lactulose with a goal of 2-3 bowel movements per day. It was discussed with the patient that she should continue this regimen at home. Her hyperglycemia did persist on the sliding scale insulin, so basal insulin was added to help better control her blood glucose levels. The patient reported improvement in her mental status, stating that her mind felt more clear. Patient was seen by PT and OT and was cleared as safe for discharge. DISCHARGE MEDICATIONS: Please see below. ALLERGIES: Please see below. PHYSICAL EXAMINATION ON DISCHARGE: VITAL SIGNS: Please see below. GENERAL: Alert, comfortable, in no acute distress HEENT: PERRLA, moist mucous membranes NECK: Supple, no JVD CARDIOVASCULAR EXAMINATION: Regular rate and rhythm, normal S1 and S2. No murmurs RESPIRATORY EXAMINATION: Clear to auscultation bilaterally ABDOMINAL EXAMINATION: Nontender, nondistended, soft EXTREMITIES: No edema, pulses 2+/4 in dorsalis pedis and radial arteries SKIN: no rashes or lesions noted NEUROLOGICAL EXAMINATION: Alert and oriented x3, Cranial nerves 3-12 grossly intact, no focal deficits. PSYCHIATRIC EXAMINATION: mood and affect appropriate LABORATORY DATA: Please see below. IMAGING: CT cervical spine without contrast: There is no fracture or listhesis. CT head without contrast: No subdural or other intracranial hemorrhage. Mild diffuse volume loss. Otherwise, negative CT study of the brain. CT maxillofacial without contrast: No facial bone fracture. Bilateral FESS surgery. There is opacification of a few right superior ethmoid sinus air cells. PROGNOSIS: Good ACTIVITY: As tolerated. DIET: As tolerated DISPOSITION: 01 Home, Self-Care. DISCHARGE INSTRUCTIONS: 1. Call your PCP or return to the ED if you notice any changes in your mental status or have another fall. 2. Follow up with PCP in 7-10 days. 3. Continue your regular home medications. 4. Remain compliant with treatment plan and medications 5. Return to the ER if you experience any problems ITEMS TO FOLLOWUP ON ON OUTPATIENT: 1. Hepatic encephalopathy. DISCHARGE CONDITION: Stable. TIME SPENT ON DISCHARGE: Greater than 35 minutes. Vital Signs/I&Os Vital Signs Date Time Temp Pulse Resp B/P (MAP) Pulse Ox O2 Delivery O2 Flow Rate FiO2 02/01/19 08:21 69 02/01/19 08:20 115/71 02/01/19 08:00 97.8 18 96 01/29/19 09:20 Room Air I&O- Last 24 Hours up to 6 AM 02/01/19 05:59 Intake Total 480 ml Output Total 1 ml Balance 479 ml Laboratory Data Labs 24H Laboratory Tests 2 01/31/19 17:01: Bedside Glucose (Misc Panel) 511*H 01/31/19 17:25: Bedside Glucose Confirm (Misc) 488*H 01/31/19 19:51: Bedside Glucose (Misc Panel) 547*H 01/31/19 20:12: Bedside Glucose Confirm (Misc) 494*H 01/31/19 22:04: Bedside Glucose (Misc Panel) 450H 01/31/19 23:39: Bedside Glucose (Misc Panel) 335H 02/01/19 05:41: Nucleated Red Blood Cells % (auto) 0.0, Immature Platelet Fraction 2.5, Anion Gap 9, Glomerular Filtration Rate 55.5, Blood Urea Nitrogen 25H, Creatinine 1.10, Sodium Level 142, Potassium Level 3.4L, Chloride Level 110H, Carbon Dioxide Level 23, Calcium Level 8.3L, Aspartate Amino Transf (AST/SGOT) 33, Alanine Aminotransferase (ALT/SGPT) 44, Alkaline Phosphatase 141H, Total Bilirubin 0.8, Total Protein 6.2L, Albumin 2.7L, Albumin/Globulin Ratio 0.77L CBC/BMP Laboratory Tests 02/01/19 05:41 Red Blood Count 3.71 L, Mean Corpuscular Volume 95.1, Mean Corpuscular Hemoglobin 34.0 H, Mean Corpuscular Hemoglobin Concent 35.7, Red Cell Distribution Width 13.1, Calcium Level 8.3 L, Aspartate Amino Transf (AST/SGOT) 33, Alanine Aminotransferase (ALT/SGPT) 44, Alkaline Phosphatase 141 H, Total Bilirubin 0.8, Total Protein 6.2 L, Albumin 2.7 L FSBS Laboratory Tests Test 01/31/19 17:01 01/31/19 19:51 01/31/19 22:04 01/31/19 23:39 Range/Units Bedside Glucose (Misc Panel) 511 547 450 335 70-105 MG/DL Discharge Medications Scheduled Aspirin (Aspirin EC) 81 Mg Tabec, 81 MG PO DAILY, (Reported) Bumetanide (Bumetanide) 2 Mg Tab, 2 MG PO BID, (Reported) Bupropion HCl (Bupropion Xl) 300 Mg Tab, 300 MG PO DAILY, (Reported) Carvedilol (Carvedilol) 25 Mg Tab, 25 MG PO BID, (Reported) Ergocalciferol (Vitamin D2) (Vitamin D2) 2,000 Unit Cap, 2,000 UNIT PO DAILY, (Reported) Escitalopram Oxalate (Lexapro) 10 Mg Tablet, 10 MG PO BID, (Reported) Ferrous Sulfate (Ferrous Sulfate) 325 Mg Tablet.dr, 325 MG PO BID, (Reported) Insulin Glargine,Hum.rec.anlog (Basaglar Kwikpen U-100) 100 Unit/Ml Inj, 80 UNIT SC BID, (Reported) Insulin Lispro (Admelog) 100 Unit/Ml Inj, 0 SC ACHS, (Reported) PER SLIDING SCALE Losartan Potassium (Losartan Potassium) 25 Mg Tablet, 25 MG PO DAILY, (Reported) Montelukast Sodium (Singulair) 10 Mg Tab, 10 MG PO QHS, (Reported) Omeprazole (Omeprazole) 20 Mg Cap, 20 MG PO DAILY, (Reported) Potassium Chloride (Potassium Chloride) 10 Meq Cap, 10 MEQ PO DAILY, (Reported) Pregabalin (Lyrica) 75 Mg Cap, 75 MG PO BID, (Reported) Rifaximin (Xifaxan) 550 Mg Tab, 550 MG PO BID, (Reported) Ropinirole HCl (Ropinirole HCl) 4 Mg Tablet, 4 MG PO BID, (Reported) Spironolactone (Spironolactone) 50 Mg Tab, 50 MG PO DAILY, (Reported) Topiramate (Topiramate) 50 Mg Tablet, 50 MG PO QHS, (Reported) Scheduled PRN Albuterol Sulfate (Proair Hfa) 108 Mcg/Act Aer, 2 PUFF INH Q4H PRN for SHORTNESS OF BREATH, (Reported) Beclomethasone Dipropionate (Qvar Redihaler) 40 Mcg/Act Aer, 2 PUFFS INH BID PRN for SHORTNESS OF BREATH, (Reported) Diclofenac Sodium (Diclofenac Sodium) 1 % Gel, 1 DOSE TOP QID PRN for PAIN, (Reported) APPLIES TO LEFT KNEE AND LEFT WRIST Fluticasone Propionate (Fluticasone Propionate) 50 Mcg/Act Spr, 1 SPRAY NA DAILY PRN for NASAL CONGESTION, (Reported) Ipratropium/Albuterol Sulfate (Iprat-Albut 0.5-3(2.5) mg/3 ml) 1 Petty Petty, 1 PETTY INH QID PRN for SHORTNESS OF BREATH, (Reported) Lactulose (Lactulose) 10 Gm/15 Ml Solution, 30 ML PO TID PRN for CONSTIPATION take medication to maintain 3-4 bowel movements per day Meclizine HCl (Meclizine HCl) 25 Mg Tab, 25 MG PO TID PRN for DIZZINESS, (Reported) Nystatin (Nystatin Powder) 15 Gm Powder, 1 APLCT TOP DAILY PRN for ITCHING, (Reported) APPLIES UNDER BELLY Ondansetron (Ondansetron Odt) 4 Mg Tab, 4 MG PO Q4H PRN for NAUSEA, (Reported) Oxycodone HCl (Oxycodone HCl) 5 Mg Tab, 5 MG PO QID PRN for PAIN, (Reported) Allergies Coded Allergies: metformin (Verified Allergy, Intermediate, RASH, 10/01/18) diltiazem (Verified Adverse Reaction, Intermediate, SWELLING IN HANDS, FEET AND LEGS, 10/01/18) phenazopyridine (Verified Adverse Reaction, Intermediate, CAUSES BLEEDING, 10/05/18) lisinopril (Verified Adverse Reaction, Mild, COUGH, 10/01/18) rosiglitazone (Verified Adverse Reaction, Mild, WATER RETENTION, 10/01/18) GME ATTESTATION GME ATTESTATION My faculty preceptor for this patient encounter was physically present during the encounter and was fully available. All aspects of the patient interview, examination, medical decision making process, and medical care plan development were reviewed and approved by the faculty preceptor. The faculty preceptor is aware and concurs with the plan as stated in the body of this note and will attest to such by his/her cosignature. ATTENDING NOTE I, Chalo Leal, have independently examined this patient and performed my own physical exam, as well as reviewed the documentation and edited where necessary. I have discussed in detail with the resident / student the findings and plan of treatment as documented by the resident / student and edited their note. I agree with their findings and treatment plan and have edited their documentation. I will continue to follow the patient during this hospital stay. Time spent on discharge: - 35 minutes TESSIE ROCHA PGY-1 Feb 01, 2019 17:24 CHALO LEAL MD Feb 01, 2019 17:27
== END 2019-02-01 11:33 | disposition home or self-care (01) | DRG 279 ==
LOC: M ED 08:50 → EDBD 08:50 → M ED INP 13:27 → M PCU 15:54
PROVIDERS: ADMIT Internal Medicine; ATTEND Internal Medicine
DX: K72.90 Hepatic failure, unspecified without coma (principal); D69.59 Other secondary thrombocytopenia; I27.20 Pulmonary hypertension, unspecified; Z68.43 Body mass index [BMI] 50.0-59.9, adult; E11.65 Type 2 diabetes mellitus with hyperglycemia; N18.3 Chronic kidney disease, stage 3 (moderate); K75.81 Nonalcoholic steatohepatitis (NASH); E66.01 Morbid (severe) obesity due to excess calories; K21.9 Gastro-esophageal reflux disease without esophagitis; G25.81 Restless legs syndrome; I12.9 Hypertensive chronic kidney disease with stage 1 through stage 4 chronic kidney disease, or unspecified chronic kidney disease; Z79.82 Long term (current) use of aspirin; Z79.899 Other long term (current) drug therapy; Z79.4 Long term (current) use of insulin; Z88.8 Allergy status to other drugs, medicaments and biological substances; Z91.19 Patient's noncompliance with other medical treatment and regimen; F39 Unspecified mood [affective] disorder; D50.9 Iron deficiency anemia, unspecified; G89.29 Other chronic pain; K74.60 Unspecified cirrhosis of liver

== ENCOUNTER → 2019-03-21 | Outpatient (CLI) | payer OTHER ==
--- NOTE | 2019-03-22 03:24 | REP ---
Clinical: Left ankle pain. Technique: AP, lateral, bilateral oblique views of the left ankle. Findings: Diffuse soft tissue swelling is appreciated. No subcutaneous emphysema or foreign body. No acute fracture or dislocation. Lateral view demonstrates small/moderate calcaneal heal spur. Impression: Significant soft tissue swelling. No obvious acute fracture. Electronically Signed by Edward Schmidt MD 03/22/2019 03:16 A
== END ==
LOC: M LRY 14:19
PROVIDERS: ATTEND Family Medicine
DX: M25.572 Pain in left ankle and joints of left foot (principal)

== ENCOUNTER → 2019-03-21 | Outpatient (REF) | payer OTHER ==
[2019-03-21 17:45] LABS: ALBUMIN 2.9 GM/DL (3.2-5.2); CREATININE FOR GFR 1.26 MG/DL (0.55-1.30); GLOMERULAR FILTRATION RATE 47.5 (>51); POTASSIUM SERUM 3.7 MEQ/L (3.5-5.1); TOTAL PROTEIN 6.1 GM/DL (6.4-8.2)
== END ==
LOC: M SFHCLERA 14:02
PROVIDERS: ATTEND Family Medicine
DX: K74.60 Unspecified cirrhosis of liver (principal)

== ENCOUNTER 2019-04-17 23:59 | Emergency (ER) | payer OTHER ==
[~2019-04-17] VITALS: Ht 182.9 cm; Wt 168.2 kg
[2019-04-18] MEDS ORDERED: ALBUTEROL SULFATE 2.5 MG/0.5 ML INH NEB SOLN NEB ONE (00:45)
[2019-04-18] MEDS ORDERED: IPRATROPIUM 0.5MG/ALBUTEROL 2.5MG INH SOL UD 3ML (DUONEB)(J7620) NEB ONE (00:45)
[2019-04-18] MEDS ORDERED: methylPREDNISolone INJ 125 MG/2 ML VIAL (J2930) IV ONE (00:45)
[2019-04-18 01:29] LABS: BASO % 0.7 % (0.0-1.0); EOS # 0.1 10^3/uL (0.0-0.5); EOS % 3.5 % (0.0-3.0); HEMATOCRIT 37.2 % (36.0-47.0); HEMOGLOBIN 12.9 g/dl (12.0-15.5); LYMPH # 1.8 10^3/uL (1.5-5.0); LYMPH % 45.4 % (24.0-44.0); MEAN CORPUSCULAR HEMOGLOBIN 34.1 pg (27.0-33.0); MEAN CORPUSCULAR HGB CONC 34.7 g/dl (32.0-36.5); MEAN CORPUSCULAR VOLUME 98.4 fl (80.0-96.0); MONO # 0.3 10^3/uL (0.0-0.8); MONO % 7.7 % (0.0-5.0); NEUTROPHILS # 1.7 10^3/uL (1.5-8.5); RED BLOOD COUNT 3.78 10^6/uL (4.00-5.40); WHITE BLOOD COUNT 4.1 10^3/uL (4.0-10.0)
[2019-04-18 01:31] LABS: PLATELET COUNT, AUTOMATED 95 10^3/uL (150-450)
[2019-04-18 01:51] LABS: INR 1.03; PROTHROMBIN TIME 13.2 SECONDS (11.8-14.0)
[2019-04-18] MEDS ORDERED: MORPHINE 4 MG/ML 1ML VIAL/SYRINGE (J2270) IV ONE (02:00)
[2019-04-18 02:12] LABS: ALBUMIN 2.7 GM/DL (3.2-5.2); ALT/SGPT 29 U/L (12-78); BILIRUBIN,DIRECT 0.2 MG/DL (0.0-0.2); BILIRUBIN,TOTAL 0.6 MG/DL (0.2-1.0); BLOOD UREA NITROGEN 23 MG/DL (7-18); CALCIUM LEVEL 8.7 MG/DL (8.5-10.1); CARBON DIOXIDE LEVEL 20 MEQ/L (21-32); CHLORIDE LEVEL 112 MEQ/L (98-107); CK-MB VALUE MASS 2.2 NG/ML (<3.6); CPK CREATINE PHOSPHOKINASE 102 U/L (26-192); CREATININE FOR GFR 1.02 MG/DL (0.55-1.30); GLOMERULAR FILTRATION RATE > 60.0 (>51); GLUCOSE, FASTING 261 MG/DL (70-100); MB/CK RELATIVE INDEX 2.16 (< OR =4); NT-PRO BNP 200 PG/ML (<125); POTASSIUM SERUM 3.6 MEQ/L (3.5-5.1); SODIUM LEVEL 141 MEQ/L (136-145); TOTAL PROTEIN 5.8 GM/DL (6.4-8.2); TROPONIN I < 0.02 NG/ML (< 0.10)
--- NOTE | 2019-04-18 04:32 | REP ---
Clinical: Cough and dyspnea . Comparison: 10/25/2018 . Technique: PA and lateral. Findings: The mediastinum and cardiac silhouette are normal. The lung go are clear and without acute consolidation, effusion, or pneumothorax. The skeletal structures are intact and normal. Impression: 1. No focal consolidation. Electronically Signed by Edward Schmidt MD 04/18/2019 04:24 A
[2019-04-18] MEDS ORDERED: PRED20TA PO (05:19)
--- NOTE | 2019-04-18 05:42 | ECGEPIP ---
[facility] - ED Test Date: 2019-04-18 Pat Name: WILLEM BALDWIN Department: Room: - Gender: Female Data Compiler: CHAD : 1965 Requested By: EDIN MCGRAW PA-C Order Number: [id number] Reading MD: Say Cameron Measurements Intervals [place] Rate: 66 P: 10 UT: 141 QRS: 6 QRSD: 101 T: 10 QT: 403 QTc: 425 Interpretive Statements SINUS RHYTHM NONSPECIFIC T WAVE ABNORMALITIES SIMILAR TO 01/29/19 Electronically Signed on 04-18-2019 5:42:31 EDT by Say Cameron
[2019-04-18 06:07] VITALS: BP 144/65
== END 2019-04-18 06:27 | disposition home or self-care (01) ==
LOC: M ED 23:59
DX: J41.0 Simple chronic bronchitis (principal); I50.9 Heart failure, unspecified; E11.9 Type 2 diabetes mellitus without complications; I10 Essential (primary) hypertension; J45.909 Unspecified asthma, uncomplicated; G47.30 Sleep apnea, unspecified; F41.9 Anxiety disorder, unspecified; F32.9 Major depressive disorder, single episode, unspecified; K21.9 Gastro-esophageal reflux disease without esophagitis; K57.32 Diverticulitis of large intestine without perforation or abscess without bleeding; N18.9 Chronic kidney disease, unspecified; Z98.61 Coronary angioplasty status; F17.200 Nicotine dependence, unspecified, uncomplicated; F12.10 Cannabis abuse, uncomplicated; Z82.49 Family history of ischemic heart disease and other diseases of the circulatory system; Z79.82 Long term (current) use of aspirin; Z79.4 Long term (current) use of insulin; Z79.899 Other long term (current) drug therapy; Z88.8 Allergy status to other drugs, medicaments and biological substances
CPT/HCPCS: 36415; 71046; 80048; 80076; 82550; 82553; 83880; 85025; 85049; 85055; 85610; 93005; 96374; 96375; 99284; J2270; J2930

== ENCOUNTER 2019-04-25 17:56 | Emergency (ER) | payer OTHER ==
[~2019-04-25] VITALS: Ht 182.9 cm; Wt 163.8 kg
[2019-04-25 17:57] VITALS: BP 146/63
[2019-04-25] MEDS ORDERED: ALBUTEROL SULFATE 2.5 MG/0.5 ML INH NEB SOLN NEB ONE (23:15)
--- NOTE | 2019-04-26 00:14 | REPVR ---
PROCEDURE INFORMATION: Exam: CT Cervical Spine Without Contrast Exam date and time: 04/25/2019 11:04 PM Clinical history: 53 years old, female; Neck pain; Additional info: Midline neck ttp TECHNIQUE: Imaging protocol: Computed tomography images of the cervical spine without contrast. Radiation optimization: All CT scans at this facility use at least one of these dose optimization techniques: automated exposure control; mA and/or kV adjustment per patient size (includes targeted exams where dose is matched to clinical indication); or iterative reconstruction. COMPARISON: CT Spine,cervical w/o contrast 01/29/2019 9:21 AM FINDINGS: Limitations: Limited by patient's body habitus. Vertebrae: Normal cervical lordosis curvature, vertebral body heights, and alignment. No spinal fracture or acute subluxation. Mild dextroconvex cervical curvature. Discs/Spinal canal/Neural foramina: Degenerative disc and joint disease greatest at C4-C5 with a large central disc extrusion causing moderate severe spinal stenosis. Soft tissues: Unremarkable. Lungs: Lung apices are normal. IMPRESSION: 1. No acute vertebral fracture/subluxation. 2. Degenerative disc and joint disease greatest at C4-C5 with a large central disc extrusion causing moderate severe spinal stenosis. Electronically signed by: Maykel Oakes On 04/26/2019 00:14:15 AM
[2019-04-26] MEDS ORDERED: LIDO5DIS41 TD (00:42)
[2019-04-26] MEDS ORDERED: LIDOCAINE 5% (LIDODERM) PATCH TD ONE (00:45)
[2019-04-26] MEDS ORDERED: **NOTE PATIENT COMMENT** MISC XX ONE (12:45)
--- NOTE | 2019-04-27 14:18 | ED PDOC ---
Post-Departure Follow-Up ct c spine faxed formal report to dr beaulieu for Julio Quiroga MD Apr 27, 2019 14:18
== END 2019-04-26 01:06 | disposition home or self-care (01) ==
LOC: M ED 17:56
DX: S16.1XXA Strain of muscle, fascia and tendon at neck level, initial encounter (principal); M54.12 Radiculopathy, cervical region; M48.02 Spinal stenosis, cervical region; X58.XXXA Exposure to other specified factors, initial encounter; Y92.099 Unspecified place in other non-institutional residence as the place of occurrence of the external cause; Y93.89 Activity, other specified; Y99.9 Unspecified external cause status; Z86.718 Personal history of other venous thrombosis and embolism; E11.9 Type 2 diabetes mellitus without complications; I10 Essential (primary) hypertension; Z87.442 Personal history of urinary calculi; F41.9 Anxiety disorder, unspecified; F32.9 Major depressive disorder, single episode, unspecified; K57.32 Diverticulitis of large intestine without perforation or abscess without bleeding; G47.30 Sleep apnea, unspecified; D64.9 Anemia, unspecified; K21.9 Gastro-esophageal reflux disease without esophagitis; N80.9 Endometriosis, unspecified; J44.9 Chronic obstructive pulmonary disease, unspecified; G25.0 Essential tremor; K74.60 Unspecified cirrhosis of liver; F17.200 Nicotine dependence, unspecified, uncomplicated; Z79.82 Long term (current) use of aspirin; Z79.4 Long term (current) use of insulin; Z79.899 Other long term (current) drug therapy; Z88.8 Allergy status to other drugs, medicaments and biological substances

== ENCOUNTER → 2019-04-27 | Outpatient (REF) | payer OTHER ==
[~2019-04-27] MED LIST changes: +BENZ200C70 PO; +GABA-843
[2019-04-30 08:39] LABS: BORDETELLA PARAPERTUSSIS PCR Negative (Negative); BORDETELLA PERTUSSIS BY PCR Negative (Negative)
== END ==
LOC: M SFHCLERA 11:32
PROVIDERS: ATTEND Family Medicine
DX: R05 Cough (principal)

== ENCOUNTER 2019-04-29 16:55 | Emergency (ER) | payer OTHER ==
[~2019-04-29] VITALS: Ht 182.9 cm; Wt 166.4 kg
[~2019-04-29 16:55] MED LIST changes: -BENZ200C70 PO; -GABA-843
[2019-04-29] MEDS ORDERED: GABA-843 (18:20)
[2019-04-29] MEDS ORDERED: IPRATROPIUM 0.5MG/ALBUTEROL 2.5MG INH SOL UD 3ML (DUONEB)(J7620) NEB ONE (18:30)
[2019-04-29 19:05] LABS: EOS # 0.1 10^3/uL (0.0-0.5); EOS % 2.3 % (0.0-3.0); HEMATOCRIT 37.6 % (36.0-47.0); HEMOGLOBIN 13.2 g/dl (12.0-15.5); LYMPH # 1.2 10^3/uL (1.5-5.0); LYMPH % 31.3 % (24.0-44.0); MEAN CORPUSCULAR HEMOGLOBIN 33.6 pg (27.0-33.0); MEAN CORPUSCULAR HGB CONC 35.1 g/dl (32.0-36.5); MEAN CORPUSCULAR VOLUME 95.7 fl (80.0-96.0); MONO # 0.3 10^3/uL (0.0-0.8); MONO % 8.8 % (0.0-5.0); NEUTROPHILS # 2.2 10^3/uL (1.5-8.5); NEUTROPHILS % 56.1 % (36.0-66.0); PLATELET COUNT, AUTOMATED 110 10^3/uL (150-450); RED BLOOD COUNT 3.93 10^6/uL (4.00-5.40); WHITE BLOOD COUNT 3.9 10^3/uL (4.0-10.0)
[2019-04-29 19:23] LABS: ALBUMIN 3.1 GM/DL (3.2-5.2); BILIRUBIN,DIRECT 0.2 MG/DL (0.0-0.2); BILIRUBIN,TOTAL 0.7 MG/DL (0.2-1.0); CALCIUM LEVEL 8.5 MG/DL (8.5-10.1); CREATININE FOR GFR 1.28 MG/DL (0.55-1.30); GLOMERULAR FILTRATION RATE 46.6 (>51); POTASSIUM SERUM 4.7 MEQ/L (3.5-5.1); THYROID STIMULATING HORMONE 4.9 uIU/ML (0.358-3.740); TOTAL PROTEIN 6.5 GM/DL (6.4-8.2)
[2019-04-29] MEDS ORDERED: NS 1,000 ML IV ONE (19:30)
[2019-04-29] MEDS ORDERED: rOPINIRole 2MG TAB PO ONE (19:30)
[2019-04-29] MEDS ORDERED: HumuLIN R (REGULAR) INSULIN (NovoLIN R) **100U/ML** PER UNIT IV ONE (21:30)
[2019-04-29] MEDS ORDERED: KETOROLAC 30 MG/ML VIAL (J1885) IV ONE (22:00)
[2019-04-29 22:17] VITALS: BP 123/56
[2019-04-29] MEDS ORDERED: BENZ200C70 PO (22:39)
[2019-04-29 22:41] LABS: FREE T4 1.09 NG/DL (0.76-1.46)
== END 2019-04-29 22:57 | disposition home or self-care (01) ==
LOC: M ED 16:55
DX: J45.909 Unspecified asthma, uncomplicated (principal); E11.9 Type 2 diabetes mellitus without complications; E86.0 Dehydration; I10 Essential (primary) hypertension; E78.00 Pure hypercholesterolemia, unspecified; K21.9 Gastro-esophageal reflux disease without esophagitis; F41.9 Anxiety disorder, unspecified; F33.9 Major depressive disorder, recurrent, unspecified; F17.200 Nicotine dependence, unspecified, uncomplicated; Z79.4 Long term (current) use of insulin; Z79.899 Other long term (current) drug therapy; Z79.82 Long term (current) use of aspirin; Z88.8 Allergy status to other drugs, medicaments and biological substances; Z86.14 Personal history of Methicillin resistant Staphylococcus aureus infection
CPT/HCPCS: 80048; 80076; 81001; 82140; 83690; 84439; 84443; 85025; 94640; 96361; 96374; 99284; J1885

== ENCOUNTER 2019-05-12 12:38 | Emergency (ER) | payer OTHER ==
[~2019-05-12] VITALS: Ht 182.9 cm; Wt 167.4 kg
[~2019-05-12 12:38] MED LIST changes: +BENZ200C70 PO; +GABA-843
[2019-05-12] MEDS ORDERED: ONDANSETRON 4MG/2ML VIAL (J2405) IV ONE (14:30)
[2019-05-12] MEDS ORDERED: MORPHINE 4 MG/ML 1ML VIAL/SYRINGE (J2270) IV ONE ×2 (14:30→18:45)
[2019-05-12 15:12] LABS: BASO % 1.1 % (0.0-1.0); EOS # 0.1 10^3/uL (0.0-0.5); EOS % 2.5 % (0.0-3.0); HEMATOCRIT 39.9 % (36.0-47.0); HEMOGLOBIN 13.5 g/dl (12.0-15.5); LYMPH % 35.6 % (24.0-44.0); MEAN CORPUSCULAR HEMOGLOBIN 33.8 pg (27.0-33.0); MEAN CORPUSCULAR HGB CONC 33.8 g/dl (32.0-36.5); MONO # 0.2 10^3/uL (0.0-0.8); MONO % 6.4 % (0.0-5.0); NEUTROPHILS # 1.5 10^3/uL (1.5-8.5); PLATELET COUNT, AUTOMATED 111 10^3/uL (150-450); RED BLOOD COUNT 3.99 10^6/uL (4.00-5.40); WHITE BLOOD COUNT 2.8 10^3/uL (4.0-10.0)
--- NOTE | 2019-05-12 15:15 | REP ---
CT lumbar spine: 05/12/2019. Indication: Lumbar radiculopathy. Point tenderness of the vertebral bodies/spinous process. Comparison: 07/18/2018. Technique: Unenhanced axial CT images of the lumbar spine were obtained with sagittal and coronal reconstructions provided. Findings: Disc space narrowing and vacuum disc phenomenon are present throughout the lumbar spine. Degenerative endplate changes are noted most pronounced on the right at L2/L3. The patient is status post cholecystectomy. No acute paraspinal soft tissue abnormalities are present. There is levoscoliosis of the lumbar spine with the convexity centered at L2/L3. No erosive/worrisome lesions are detected. Disc and spur complexes are present throughout the lumbar spine most pronounced at L5/S1. No definite disc herniation is detected. There is moderate to severe left neural foraminal narrowing at L5/S1. Moderate bilateral neural foraminal narrowing is additionally noted on the right and L4/L5 and L5/S1. Impression: No acute osseous injury of the lumbar spine detected. Electronically Signed by Connor Rene DO 05/12/2019 03:08 P
--- NOTE | 2019-05-12 15:17 | REP ---
CT of the abdomen pelvis without IV or bowel contrast for bilateral flank pain and history of renal calculi: Comparison is 10/25/2018. The patient has additional history of cirrhosis. The visualized lung go are unremarkable. The unenhanced hepatic parenchyma is homogeneous. The hepatic margin is mildly nodular compatible with cirrhosis. The study is insensitive for hepatic masses in the absence of IV contrast. There are surgical clips in the gallbladder fossa. The pancreas is unremarkable. Spleen is mildly enlarged as previously. There are numerous left retroperitoneal varices as previously compatible with portal hypertension. The adrenals are unremarkable. There is a calcification in the right renal hilus, not within the renal pelvis or ureter, likely vascular atheroma. There is a tiny calcification in the left renal hilus, also not within the left renal pelvis or ureter, likely calcified vascular atheroma. There is no hydronephrosis or hydroureter. There are no bladder calculi. There are bilateral calculi in the pelvis, similar to the prior study, likely phleboliths. The unenhanced abdominal aorta is unremarkable. There is no bowel distension or obstruction. There is a fat-containing umbilical hernia, unchanged. Pelvis: There are are calcifications, likely phleboliths, unchanged. There is no hydroureter. The uterus and adnexa are unremarkable. The pelvic bowel loops are unremarkable. There is advanced degenerative disc disease throughout the lumbar spine. Impression: There is no hydronephrosis or hydroureter. There is a calcification in each renal hilus, not within the renal pelves or ureters, likely calcified vascular atheroma. There are retroperitoneal and pelvic calcifications bilaterally, likely phleboliths in the absence of hydronephrosis. There is a fat-containing umbilical hernia. Cholecystectomy. There are findings compatible with cirrhosis, retroperitoneal varices and portal hypertension. This is unchanged. Electronically Signed by Pedro Pablo Agarwal MD 05/12/2019 03:08 P
[2019-05-12] MEDS ORDERED: NS 1,000 ML IV ONE (15:30)
[2019-05-12] MEDS ORDERED: LIDOCAINE 5% (LIDODERM) PATCH TD ONE (18:00)
[2019-05-12] MEDS ORDERED: HumuLIN R (REGULAR) INSULIN (NovoLIN R) **100U/ML** PER UNIT IV ONE ×2 (19:15→20:15)
[2019-05-12] MEDS ORDERED: **NOTE PATIENT COMMENT** MISC XX SCH (21:00)
[2019-05-12] MEDS ORDERED: CYCLOBENZAPRINE 10 MG TAB PO ONE (21:15)
[2019-05-12 21:48] VITALS: BP 130/82
[2019-05-12] MEDS ORDERED: CYCL5TAB PO (21:59)
--- NOTE | 2019-05-14 07:19 | ED PDOC ---
Post-Departure Follow-Up radiology report faxed to PCP, Kenia Palacios MD May 14, 2019 07:19
== END 2019-05-12 22:03 | disposition home or self-care (01) ==
LOC: M ED 12:38
DX: S39.012A Strain of muscle, fascia and tendon of lower back, initial encounter (principal); M51.36 Other intervertebral disc degeneration, lumbar region; K42.9 Umbilical hernia without obstruction or gangrene; E11.65 Type 2 diabetes mellitus with hyperglycemia; K76.0 Fatty (change of) liver, not elsewhere classified; D72.819 Decreased white blood cell count, unspecified; D69.6 Thrombocytopenia, unspecified; K76.6 Portal hypertension; I50.9 Heart failure, unspecified; M19.90 Unspecified osteoarthritis, unspecified site; R42 Dizziness and giddiness; G25.0 Essential tremor; K76.9 Liver disease, unspecified; M54.30 Sciatica, unspecified side; Z98.61 Coronary angioplasty status; Z96.0 Presence of urogenital implants; Z79.82 Long term (current) use of aspirin; Z79.4 Long term (current) use of insulin; Z79.899 Other long term (current) drug therapy; Z88.8 Allergy status to other drugs, medicaments and biological substances
CPT/HCPCS: 72131; 74176; 80047; 81001; 83605; 85025; 85652; 86140; 96374; 96375; 96376; 99284; J2270; J2405

== ENCOUNTER → 2019-05-26 | Outpatient (REF) | payer OTHER ==
[~2019-05-26] MED LIST changes: +CYCL5TAB PO; +NICO1KIT TOP
[2019-05-26 13:55] LABS: EOS # 0.1 10^3/uL (0.0-0.5); EOS % 1.7 % (0.0-3.0); HEMATOCRIT 40.5 % (36.0-47.0); HEMOGLOBIN 13.7 g/dl (12.0-15.5); LYMPH # 0.8 10^3/uL (1.5-5.0); LYMPH % 28.1 % (24.0-44.0); MEAN CORPUSCULAR HEMOGLOBIN 33.7 pg (27.0-33.0); MEAN CORPUSCULAR HGB CONC 33.8 g/dl (32.0-36.5); MEAN CORPUSCULAR VOLUME 99.8 fl (80.0-96.0); MONO # 0.3 10^3/uL (0.0-0.8); MONO % 9.5 % (0.0-5.0); NEUTROPHILS # 1.8 10^3/uL (1.5-8.5); NEUTROPHILS % 59.4 % (36.0-66.0); PLATELET COUNT, AUTOMATED 100 10^3/uL (150-450); RED BLOOD COUNT 4.06 10^6/uL (4.00-5.40)
[2019-05-26 14:37] LABS: HEMOGLOBIN A1c 14.2 %
== END ==
LOC: M SFHCLERA 10:08
PROVIDERS: ATTEND Family Medicine
DX: D72.819 Decreased white blood cell count, unspecified (principal); E11.65 Type 2 diabetes mellitus with hyperglycemia

== ENCOUNTER → 2019-08-24 | Outpatient (REF) | payer OTHER ==
[~2019-08-24] MED LIST changes: -BUPR300T34 PO; +BUPR300T92 PO; -MECL-68 PO; +MECL1TAB31 PO; -MONT10TA2 PO; +MONT10TA4 PO; +OMEP1CAP73 PO; -OMEP20CA4 PO; +ROPI2TAB3 PO
[2019-08-24 11:51] LABS: BASO % 1.3 % (0.0-1.0); EOS # 0.1 10^3/uL (0.0-0.5); EOS % 3.9 % (0.0-3.0); HEMATOCRIT 37.9 % (36.0-47.0); HEMOGLOBIN 13.7 g/dl (12.0-15.5); LYMPH # 1.1 10^3/uL (1.5-5.0); LYMPH % 35.5 % (24.0-44.0); MEAN CORPUSCULAR HEMOGLOBIN 34.2 pg (27.0-33.0); MEAN CORPUSCULAR HGB CONC 36.1 g/dl (32.0-36.5); MEAN CORPUSCULAR VOLUME 94.5 fl (80.0-96.0); MONO # 0.3 10^3/uL (0.0-0.8); MONO % 8.9 % (0.0-5.0); NEUTROPHILS # 1.5 10^3/uL (1.5-8.5); NEUTROPHILS % 49.7 % (36.0-66.0); PLATELET COUNT, AUTOMATED 128 10^3/uL (150-450); RED BLOOD COUNT 4.01 10^6/uL (4.00-5.40)
[2019-08-24 12:31] LABS: HEMOGLOBIN A1c 14.2 %
[2019-08-24 13:31] LABS: ALBUMIN 2.9 GM/DL (3.2-5.2); CALCIUM LEVEL 8.8 MG/DL (8.5-10.1); CREATININE FOR GFR 1.11 MG/DL (0.55-1.30); POTASSIUM SERUM 4.1 MEQ/L (3.5-5.1); TOTAL PROTEIN 6.2 GM/DL (6.4-8.2)
== END ==
LOC: M SFHCLERA 09:36
PROVIDERS: ATTEND Family Medicine
DX: E11.319 Type 2 diabetes mellitus with unspecified diabetic retinopathy without macular edema (principal)

== ENCOUNTER 2019-08-30 17:00 | Emergency (ER) | payer OTHER ==
[~2019-08-30] VITALS: Ht 182.9 cm; Wt 161.3 kg
[2019-08-30] MEDS ORDERED: BENZOCAINE 10% 9GM TUBE (ANBESOL) TOP STA (18:55)
[2019-08-30 19:21] LABS: APPEARANCE, URINE CLEAR (CLEAR); BACTERIA, URINE AUTO NEGATIVE (NEGATIVE); BILIRUBIN, URINE AUTO NEGATIVE (NEGATIVE); BLOOD, URINE BLOOD NEGATIVE (NEGATIVE); COLOR, URINE STRAW (YELLOW); GLUCOSE, URINE (UA) AUTO 3+ mg/dL (NEGATIVE); KETONE, URINE AUTO NEGATIVE (NEGATIVE); LEUKOCYTE ESTERASE, URINE AUTO NEGATIVE (NEGATIVE); NITRITE, URINE AUTO NEGATIVE (NEGATIVE); PROTEIN, URINE AUTO NEGATIVE (NEGATIVE); RBC, URINE AUTO 3 /HPF (0-3); SPECIFIC GRAVITY URINE AUTO 1.031 (1.002-1.035); SQUAMOUS EPITHELIAL CELL UR AU 1 /HPF (0-6); UROBILINOGEN, URINE AUTO 0.2 mg/dL (0.0-2.0); WBC, URINE AUTO 0 /HPF (0-3)
[2019-08-30 19:23] LABS: BASO # 0.1 10^3/uL (0.0-0.2); BASO % 1.2 % (0.0-1.0); EOS # 0.2 10^3/uL (0.0-0.5); EOS % 4.2 % (0.0-3.0); HEMATOCRIT 41.1 % (36.0-47.0); LYMPH # 1.5 10^3/uL (1.5-5.0); LYMPH % 36.9 % (24.0-44.0); MEAN CORPUSCULAR HEMOGLOBIN 34.6 pg (27.0-33.0); MEAN CORPUSCULAR HGB CONC 36.5 g/dl (32.0-36.5); MEAN CORPUSCULAR VOLUME 94.7 fl (80.0-96.0); MONO # 0.3 10^3/uL (0.0-0.8); MONO % 7.7 % (0.0-5.0); NEUTROPHILS % 49.8 % (36.0-66.0); PLATELET COUNT, AUTOMATED 136 10^3/uL (150-450); RED BLOOD COUNT 4.34 10^6/uL (4.00-5.40)
[2019-08-30] MEDS ORDERED: HumuLIN R (REGULAR) INSULIN (NovoLIN R) **100U/ML** PER UNIT IV ONE (20:15)
[2019-08-30] MEDS ORDERED: ANBE20GE TOP (21:36)
[2019-08-30 21:50] VITALS: BP 142/79
== END 2019-08-30 21:52 | disposition home or self-care (01) ==
LOC: M ED 17:00
DX: K12.0 Recurrent oral aphthae (principal); E11.649 Type 2 diabetes mellitus with hypoglycemia without coma; I10 Essential (primary) hypertension; J45.909 Unspecified asthma, uncomplicated; G25.0 Essential tremor; K57.32 Diverticulitis of large intestine without perforation or abscess without bleeding; F17.200 Nicotine dependence, unspecified, uncomplicated; Z79.82 Long term (current) use of aspirin; Z79.4 Long term (current) use of insulin; Z79.899 Other long term (current) drug therapy; Z88.8 Allergy status to other drugs, medicaments and biological substances

== ENCOUNTER 2019-12-12 20:44 | Emergency (ER) | payer OTHER ==
[~2019-12-12] VITALS: Ht 182.9 cm; Wt 163.6 kg
[2019-12-12 20:44] VITALS: BP 128/60
[~2019-12-12 20:44] MED LIST changes: +ANBE20GE TOP; +CLEO300C2 PO; +CYCL-707 PO; -LACT10SO29 PO; +LACT20EL PO; +LORA-674 PO; +NYST10CR TOP; +SERT50TA29 PO
[2019-12-12] MEDS ORDERED: NS 1,000 ML IV SCH (21:26)
[2019-12-12] MEDS ORDERED: PANTOPRAZOLE 40MG VIAL (C9113 PER 1) IV ONE (21:30)
[2019-12-12 22:27] LABS: HEMATOCRIT 30.9 % (36.0-47.0); HEMOGLOBIN 10.6 g/dl (12.0-15.5); MEAN CORPUSCULAR HEMOGLOBIN 33.3 pg (27.0-33.0); MEAN CORPUSCULAR HGB CONC 34.3 g/dl (32.0-36.5); MEAN CORPUSCULAR VOLUME 97.2 fl (80.0-96.0); PLATELET COUNT, AUTOMATED 136 10^3/uL (150-450); RED BLOOD COUNT 3.18 10^6/uL (4.00-5.40); WHITE BLOOD COUNT 3.8 10^3/uL (4.0-10.0)
[2019-12-12 22:35] LABS: INR 1.12; PROTHROMBIN TIME 14.1 SECONDS (11.8-14.0)
[2019-12-12 22:46] LABS: ATYPICAL LYMPH 2 % (0-5); BASOPHILS 1 % (0-1); EOSINOPHILS 7 % (0-3); LYMPHOCYTES 28 % (16-44); MONOCYTES 2 % (0-5); NEUTROPHILS 59 % (28-66); PLATELET ESTIMATE DECREASED (NORMAL)
[2019-12-12 22:52] LABS: ALBUMIN 2.9 GM/DL (3.2-5.2); ALT/SGPT 32 U/L (12-78); BILIRUBIN,DIRECT 0.2 MG/DL (0.0-0.2); BILIRUBIN,TOTAL 0.5 MG/DL (0.2-1.0); BLOOD UREA NITROGEN 22 MG/DL (7-18); CALCIUM LEVEL 8.7 MG/DL (8.5-10.1); CARBON DIOXIDE LEVEL 23 MEQ/L (21-32); CHLORIDE LEVEL 114 MEQ/L (98-107); CREATININE FOR GFR 0.82 MG/DL (0.55-1.30); GLOMERULAR FILTRATION RATE > 60.0 (>51); GLUCOSE, FASTING 188 MG/DL (70-100); LIPASE 296 U/L (73-393); SODIUM LEVEL 145 MEQ/L (136-145); TOTAL PROTEIN 6.3 GM/DL (6.4-8.2)
--- NOTE | 2019-12-13 09:43 | REP ---
ABDOMINAL SERIES: Supine and erect views of the abdomen demonstrate no evidence of free intraperitoneal air and no evidence of small bowel obstruction. Mild air is scattered throughout nondilated colon. Multiple metallic clips are seen in the right upper quadrant. There are mild vascular calcifications and phleboliths in the pelvis. There are mild degenerative changes of the spine. An accompanying view of the chest demonstrates no acute infiltrate. The heart is upper limits of normal in size. IMPRESSION: No evidence of free air or obstruction. No infiltrate in either lung. Electronically Signed by Pedro Pablo Lu MD 12/14/2019 10:03 P
== END 2019-12-12 23:38 | disposition home or self-care (01) ==
LOC: M ED 20:44
DX: K92.2 Gastrointestinal hemorrhage, unspecified (principal); K64.9 Unspecified hemorrhoids; I51.9 Heart disease, unspecified; E11.9 Type 2 diabetes mellitus without complications; I10 Essential (primary) hypertension; K74.60 Unspecified cirrhosis of liver; J44.9 Chronic obstructive pulmonary disease, unspecified; F17.200 Nicotine dependence, unspecified, uncomplicated; Z79.82 Long term (current) use of aspirin; Z79.4 Long term (current) use of insulin; Z79.899 Other long term (current) drug therapy; Z88.1 Allergy status to other antibiotic agents; Z88.8 Allergy status to other drugs, medicaments and biological substances
CPT/HCPCS: 74021; 80048; 80076; 83690; 85025; 85610; 86850; 86900; 86901; 96361; 96374; 99284; C9113

== ENCOUNTER → 2020-01-05 | Outpatient (CLI) | payer OTHER | LOC: M LABSMTC 11:03 | PROVIDERS: ATTEND Anesthesiology | DX: Z03.818 Encounter for observation for suspected exposure to other biological agents ruled out (principal); Z11.59 Encounter for screening for other viral diseases | CPT/HCPCS: C9803; U0003 ==

== ENCOUNTER 2020-01-09 08:49 | Day surgery (SDC) | payer OTHER ==
[~2020-01-09] VITALS: Ht 182.9 cm; Wt 161.5 kg
[~2020-01-09 08:49] MED LIST changes: +AMLO1TAB24 PO; -AMLO5TAB6 PO; -ASPI81TA85 PO; +ASPI81TA86 PO; -ENAL20TA PO; +ENAL20TA11 PO; +NS 1,000 ML IV ONE
[2020-01-09] MEDS ORDERED: LIDOCAINE 2% 100MG/5ML SDV (FOR ANES.) As Ordered ONE (08:52)
[2020-01-09] MEDS ORDERED: fentaNYL 100 MCG/2 ML INJECTION (J3010) As Ordered ONE (08:53)
[2020-01-09] MEDS ORDERED: propofoL 500 MG/50 ML VIAL As Ordered ONE (08:56)
[2020-01-09] MEDS ORDERED: PHENYLephrine HCL 500 MCG/5 ML (100MCG/ML) SYRINGE (J2370) As Ordered ONE (10:11)
--- NOTE | 2020-01-09 10:11 | ROOR ---
Patient Name: Hina Devi Procedure Date: 01/09/2020 9:56 AM Date of : 1965 Age: 54 Room: [facility] Gender: Female Note Status: Finalized Procedure: Upper GI endoscopy Indications: Cirrhosis rule out esophageal varices Providers: Oni Mendoza MD Referring MD: [facility], [place] Requesting Provider: Medicines: Monitored Anesthesia Care Complications: No immediate complications. Procedure: Pre-Anesthesia Assessment: - The heart rate, respiratory rate, oxygen saturations, blood pressure, adequacy of pulmonary ventilation, and response to care were monitored throughout the procedure. The Endoscope was introduced through the mouth, and advanced to the second part of duodenum. The upper GI endoscopy was accomplished without difficulty. The patient tolerated the procedure well. Findings: The Z-line was regular and was found 40 cm from the incisors. There is no endoscopic evidence of varices in the entire esophagus. No other significant abnormalities were identified in a careful examination of the stomach. The exam of the duodenum was otherwise normal. Impression: - Z-line regular, 40 cm from the incisors. - No specimens collected. - The examination was otherwise normal. Recommendation: - Patient has a contact number available for emergencies. The signs and symptoms of potential delayed complications were discussed with the patient. Return to normal activities tomorrow. Written discharge instructions were provided to the patient. - High fiber diet. - Discharge patient to home. - Follow an antireflux regimen. - Continue present medications. - Repeat upper endoscopy in 1 year for surveillance. - Return to referring physician. - The findings and recommendations were discussed with the patient's family. Oni Mendoza MD Oni Mendoza MD 01/09/2020 10:11:38 AM Electronically signed by Oni Mendoza MD Number of Addenda: 0 Note Initiated On: 01/09/2020 9:56 AM Estimated Blood Loss: Estimated blood loss: none.
[2020-01-09] MEDS ORDERED: propofoL 200 MG/20 ML VIAL As Ordered ONE (10:30)
--- NOTE | 2020-01-09 10:39 | ROOR ---
Patient Name: Hina Devi Procedure Date: 01/09/2020 9:57 AM Date of : 1965 Age: 54 Room: [facility] Gender: Female Note Status: Finalized Procedure: Total Colonoscopy to Cecum Indications: Rectal bleeding Providers: Oni Mendoza MD Referring MD: [facility], [place] Requesting Provider: Medicines: Monitored Anesthesia Care Complications: No immediate complications. Procedure: Pre-Anesthesia Assessment: - The heart rate, respiratory rate, oxygen saturations, blood pressure, adequacy of pulmonary ventilation, and response to care were monitored throughout the procedure. The Colonoscope was introduced through the anus and advanced to the cecum, identified by appendiceal orifice and ileocecal valve. The colonoscopy was performed without difficulty. The patient tolerated the procedure well. The quality of the bowel preparation was good. Findings: The perianal and digital rectal examinations were normal. Non-bleeding internal hemorrhoids were found during retroflexion. The hemorrhoids were small and Grade I (internal hemorrhoids that do not prolapse). No other significant abnormalities were identified in a careful examination of the remainder of the colon. The exam was otherwise without abnormality on direct and retroflexion views. Impression: - Non-bleeding internal hemorrhoids. - The examination was otherwise normal on direct and retroflexion views. - No specimens collected. - The exam was otherwise normal to the cecum. Recommendation: - Patient has a contact number available for emergencies. The signs and symptoms of potential delayed complications were discussed with the patient. Return to normal activities tomorrow. Written discharge instructions were provided to the patient. - High fiber diet. - Discharge patient to home. - Continue present medications. - Repeat colonoscopy in 10 years for screening purposes. - Return to referring physician. - The findings and recommendations were discussed with the patient's family. Oni Mendoza MD Oni Mendoza MD 01/09/2020 10:39:20 AM Electronically signed by Oin Mendoza MD Number of Addenda: 0 Note Initiated On: 01/09/2020 9:57 AM Estimated Blood Loss: Estimated blood loss: none.
[2020-01-09 11:05] VITALS: BP 130/79
== END 2020-01-09 11:28 | disposition home or self-care (01) ==
LOC: M OPP 08:49
PROVIDERS: ATTEND Internal Medicine Gastroenterology
DX: K64.8 Other hemorrhoids (principal); K62.5 Hemorrhage of anus and rectum; K74.69 Other cirrhosis of liver; K21.9 Gastro-esophageal reflux disease without esophagitis; E11.9 Type 2 diabetes mellitus without complications; F17.210 Nicotine dependence, cigarettes, uncomplicated; Z79.82 Long term (current) use of aspirin; Z79.891 Long term (current) use of opiate analgesic; Z79.899 Other long term (current) drug therapy; Z88.1 Allergy status to other antibiotic agents; Z88.8 Allergy status to other drugs, medicaments and biological substances
CPT/HCPCS: 43235; 45378; J2370; J3010

== ENCOUNTER 2020-02-19 06:23 | Inpatient (IN) | payer OTHER ==
[~2020-02-19 06:23] MED LIST changes: -NS 1,000 ML IV ONE
[2020-02-19] MEDS ORDERED: rOPINIRole 2MG TAB ONE (09:00)
[2020-02-19] MEDS ORDERED: LACTULOSE 20 GM/30 ML SYRUP UD As Ordered ONE (10:43)
[2020-02-19] MEDS ORDERED: LORATADINE 10 MG TAB ONE (18:51)
[2020-02-19] MEDS ORDERED: LACTULOSE 20 GM/30 ML SYRUP UD ONE (18:51)
[2020-02-19] MEDS ORDERED: FUROSEMIDE 80 MG TAB ONE (18:51)
[2020-02-19] MEDS ORDERED: HumaLOG INSULIN (NovoLOG) PER UNIT ONE ×2 (18:51→21:52)
[2020-02-19] MEDS ORDERED: SERTRALINE HCL 50 MG TAB ONE (18:51)
[2020-02-19] MEDS ORDERED: SPIRONOLACTONE 50 MG TAB ONE (18:51)
[2020-02-19] MEDS ORDERED: OMEPRAZOLE 20 MG CAP ONE (18:51)
[2020-02-19] MEDS ORDERED: LOSARTAN 50MG TABLET ONE (21:52)
[2020-02-19] MEDS ORDERED: TOPIRAMATE (TopAMAX) 25 MG TAB ONE (21:52)
[2020-02-19] MEDS ORDERED: rifAXIMin 550 MG TAB (XIFAXAN) ONE (21:52)
[2020-02-19] MEDS ORDERED: CYCLOBENZAPRINE 10MG TABLET ONE (21:52)
[2020-02-19] MEDS ORDERED: rOPINIRole 1MG TAB ONE (21:52)
[2020-02-19] MEDS ORDERED: busPIRone 10 MG TAB ONE (21:52)
[2020-02-19] MEDS ORDERED: HEPARIN SOD (PORCINE) 5000UNITS/ML 1ML VIAL/SYRINGE ONE (21:52)
[2020-02-19] MEDS ORDERED: LEVEMIR (INSULIN DETEMIR) 1 UNITS/0.01ML ONE (21:52)
[2020-02-20] MEDS ORDERED: LACTULOSE 20 GM/30 ML SYRUP UD ONE (06:00)
[2020-02-20] MEDS ORDERED: HEPARIN SOD (PORCINE) 5000UNITS/ML 1ML VIAL/SYRINGE ONE ×2 (06:00→16:04)
[2020-02-20] MEDS ORDERED: busPIRone 10 MG TAB ONE (08:14)
[2020-02-20] MEDS ORDERED: FUROSEMIDE 80 MG TAB ONE (08:14)
[2020-02-20] MEDS ORDERED: LORATADINE 10 MG TAB ONE (08:14)
[2020-02-20] MEDS ORDERED: rOPINIRole 1MG TAB ONE (08:14)
[2020-02-20] MEDS ORDERED: SERTRALINE HCL 25 MG TABLET ONE (08:14)
[2020-02-20] MEDS ORDERED: rifAXIMin 550 MG TAB (XIFAXAN) ONE (08:14)
[2020-02-20] MEDS ORDERED: SPIRONOLACTONE 50 MG TAB ONE (08:14)
[2020-02-20] MEDS ORDERED: LEVEMIR (INSULIN DETEMIR) 1 UNITS/0.01ML ONE (08:14)
[2020-02-20] MEDS ORDERED: OMEPRAZOLE 20 MG CAP ONE (08:14)
[2020-02-20] MEDS ORDERED: NYSTATIN 100,000 UNITS/GM TOPICAL PWD 15 GM ONE (11:14)
[2020-02-20] MEDS ORDERED: CARVedilol 12.5 MG TAB ONE (11:51)
[2020-02-20] MEDS ORDERED: HumaLOG INSULIN (NovoLOG) PER UNIT ONE (13:04)
[2020-02-20] MEDS ORDERED: ACETAMINOPHEN TAB 650MG DOSE (2X325MG) ONE (16:04)
[2020-03-23 15:07] LABS: HEMATOCRIT 34.8 % (36.0-47.0); HEMOGLOBIN 12.1 g/dl (12.0-15.5); RED BLOOD COUNT 3.53 10^6/uL (4.00-5.40)
[2020-03-23 15:08] LABS: MEAN CORPUSCULAR HEMOGLOBIN 34.3 pg (27.0-33.0); MEAN CORPUSCULAR HGB CONC 34.8 g/dl (32.0-36.5); MEAN CORPUSCULAR VOLUME 98.6 fl (80.0-96.0); PLATELET COUNT, AUTOMATED 134 10^3/uL (150-450)
--- NOTE | 2020-03-23 15:29 | ECGEPIP ---
SINUS RHYTHM NONSPECIFIC ST & T CHANGES DELAYED R WAVE PROGRESSION NO PRIOR DUE TO DOWNTIME SEE SCANNED DOWNTIME REPORT MTDD
[2020-04-02 10:18] LABS: INR 1.11; PARTIAL THROMBOPLASTIN TIME 27.6 SECONDS (24.2-38.5); PROTHROMBIN TIME 14.5 SECONDS (12.5-14.3)
[2020-04-02 22:16] LABS: BASO # 0.1 10^3/uL (0.0-0.2); BASO % 1.2 % (0.0-1.0); EOS # 0.2 10^3/uL (0.0-0.5); EOS % 5.6 % (0.0-3.0); HEMATOCRIT 31.2 % (36.0-47.0); HEMOGLOBIN 11.1 g/dl (12.0-15.5); LYMPH # 1.5 10^3/uL (1.5-5.0); LYMPH % 35.6 % (24.0-44.0); MEAN CORPUSCULAR HEMOGLOBIN 33.8 pg (27.0-33.0); MEAN CORPUSCULAR HGB CONC 35.6 g/dl (32.0-36.5); MEAN CORPUSCULAR VOLUME 95.1 fl (80.0-96.0); MONO # 0.3 10^3/uL (0.0-0.8); MONO % 7.4 % (0.0-5.0); NEUTROPHILS # 2.2 10^3/uL (1.5-8.5); PLATELET COUNT, AUTOMATED 133 10^3/uL (150-450); RED BLOOD COUNT 3.28 10^6/uL (4.00-5.40); WHITE BLOOD COUNT 4.3 10^3/uL (4.0-10.0)
[2020-05-06 11:33] LABS: ACETAMINOPHEN LEVEL < 2.0 UG/ML (10.0-30.0); ALBUMIN 3.1 GM/DL (3.2-5.2); ALT/SGPT 23 U/L (12-78); BILIRUBIN,DIRECT 0.3 MG/DL (0.0-0.2); BILIRUBIN,TOTAL 0.7 MG/DL (0.2-1.0); BLOOD UREA NITROGEN 38 MG/DL (7-18); CALCIUM LEVEL 9.1 MG/DL (8.5-10.1); CARBON DIOXIDE LEVEL 24 MEQ/L (21-32); CHLORIDE LEVEL 114 MEQ/L (98-107); CK-MB VALUE MASS 3.1 NG/ML (<3.6); CPK CREATINE PHOSPHOKINASE 113 U/L (26-192); CREATININE FOR GFR 0.84 MG/DL (0.55-1.30); ETHYL ALCOHOL (ETHANOL) < 0.003 % (0.000-0.010); FREE T4 1.04 NG/DL (0.76-1.46); GLOMERULAR FILTRATION RATE > 60.0 (>51); GLUCOSE, FASTING 206 MG/DL (70-100); MB/CK RELATIVE INDEX 2.74 (< OR =4); POTASSIUM SERUM 3.5 MEQ/L (3.5-5.1); SALICYLATE LEVEL < 1.7 MG/DL (5.0-30.0); SODIUM LEVEL 144 MEQ/L (136-145); TOTAL PROTEIN 6.2 GM/DL (6.4-8.2); TROPONIN I < 0.02 NG/ML (< 0.10)
[2020-05-06 11:37] LABS: HCG, SERUM QUALITATIVE NEGATIVE (NEGATIVE)
[2020-05-13 13:01] LABS: BLOOD UREA NITROGEN 24 MG/DL (7-18); CALCIUM LEVEL 8.7 MG/DL (8.5-10.1); CARBON DIOXIDE LEVEL 26 MEQ/L (21-32); CHLORIDE LEVEL 115 MEQ/L (98-107); CREATININE FOR GFR 0.79 MG/DL (0.55-1.30); GLOMERULAR FILTRATION RATE > 60.0 (>51); GLUCOSE, FASTING 221 MG/DL (70-100); POTASSIUM SERUM 3.6 MEQ/L (3.5-5.1); SODIUM LEVEL 144 MEQ/L (136-145)
== END 2020-02-20 11:15 | disposition home or self-care (01) | DRG 279 ==
LOC: M ED 06:23 → M MS5PR 11:45
PROVIDERS: ADMIT Internal Medicine; ATTEND Internal Medicine
DX: K72.90 Hepatic failure, unspecified without coma (principal); I11.0 Hypertensive heart disease with heart failure; I50.9 Heart failure, unspecified; K75.81 Nonalcoholic steatohepatitis (NASH); E11.9 Type 2 diabetes mellitus without complications; G43.909 Migraine, unspecified, not intractable, without status migrainosus; G25.81 Restless legs syndrome; K21.9 Gastro-esophageal reflux disease without esophagitis; Z91.14 Patient's other noncompliance with medication regimen; Z79.899 Other long term (current) drug therapy; K74.69 Other cirrhosis of liver

== ENCOUNTER → 2020-05-02 | Outpatient (CLI) | payer OTHER ==
--- NOTE | 2020-05-09 00:50 | ECWPNPC ---
PATIENT NAME: WILLEM BALDWIN : 1965 GENDER: FEMALE VISIT DATE: 05/02/2020 DISCHARGE DATE: 05/02/20 1527 VISIT LOCKED DATE TIME: PHYSICIAN: SHANNEN PRADO PHYSICIAN PAGER NO: ACTIVE RESOURCE: SHANNEN PRADO REASON FOR APPOINTMENT 1. CHRONIC BACK/HIP HISTORY OF PRESENT ILLNESS DEPRESSION SCREENING: PHQ-2 (2015 EDITION) LITTLE INTEREST OR PLEASURE IN DOING THINGS?NOT AT ALL FEELING DOWN, DEPRESSED, OR HOPELESS?NOT AT ALL TOTAL SCORE0 GENERAL: HERE FOR EVALUATION OF CHRONIC LOW BACK PAIN AND HIP PAIN. PRIOR PATIENT OF OURS IN THE PAST. 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 IS MORBIDLY OBESE AND DECONDITIONED. IN THE PROCESS OF SEEKING ASSISTED LIVING. REPORTS PAIN IN LOW BACK AND HIPS HAS SEVERELY INCREASED OVER THE PAST YEAR. HAS RESPONDED WELL TO TREATMENTS HERE TO INCLUDE TRIGGER POINT INJECTIONS AND LUMBAR FACET INJECTIONS. IT IS BEEN SEVERAL YEARS SINCE SHE'S HAD IMAGING OF HER LUMBOSACRAL SPINE. DENIES BOWEL OR BLADDER INCONTINENCE. DENIES SUDDEN WEIGHT LOSS. - - -. FALL RISK SCREENING: SCREENING :TWO OR MORE FALLS WITH INJURY IN THE PAST YEAR PAIN SCREENING: PATIENT HAS A COMPLAINT OF ACUTE OR CHRONIC PAIN :YES LOCATION OF PAIN:LOW BACK, LEFT HIP, RIGHT HIP INTENSITY OF PAIN (SCALE OF 1 TO 10):8 WHAT DOES YOUR PAIN FEEL LIKE:ACHING, BURNING, SHARP, STABBING, THROBBING DURATION:CONTINOUS, CONSTANT PAIN IS INCREASED BY:ACTIVITIES PAIN IS DECREASED BY:SITTING HEATING PAD TREATMENT/MEDICATIONS USED TO MANAGE PAIN:NONE LEVEL OF RELIEF FROM PAIN TREATMENTS IN THE PAST:25% PAIN HAS INTERFERED WITH THE FOLLOWING:BATHING/DRESSING, WALKING ABILITY, HOUSEWORK, SLEEP, TRANSPORTATION, TOILETING NURSING NOTE: - - -. PAIN CENTER INTAKE QUESTIONS: DO YOU HAVE A HISTORY OF MRSA? :YES NASAL DO YOU TAKE A BLOOD THINNERS? :NO DO YOU HAVE ANY BLEEDING DISORDERS? :NO ANY NEW NUMBNESS OR WEAKNESS IN YOUR LEGS OR ARMS? :YES BILAT ARMS AND LEGS ANY PACEMAKER,DEFIBRILLATOR, OR DORSAL COLUMN STIMULATOR? :NO DO YOU HAVE ANY RASHES OR OPEN SORES? :NO ARE YOU ALLERGIC TO IV DYE? :NO ARE YOU DIABETIC? :YES ANY NEW PROBLEMS WITH YOUR MEDICATIONS? :NO HAVE YOU RECEIVED A VACCINE IN THE PAST 30 DAYS? :YES IF SO WHAT VACCINE AND WHEN? FLU VACCINE 04/2020 DO YOU PLAN TO RECEIVE A VACCINE IN THE NEXT 21 DAYS? :NO DO YOU NEED ANY PRESCRIPTION? :NO DO YOU TAKE ANY IMMUNOSUPPRESSIVE MEDICATIONS? :NO CURRENT MEDICATIONS TAKING MAY HAVE - - DIRECTED DX: R53.81 DAILY TAKING MAY HAVE - - DIRECTED SHOWER CHAIR DAILY, NOTES: SHOWER CHAIR, DX: R53.81 TAKING IRON 325 (65 FE) MG TABLET 1 TABLET ORALLY BID TAKING ONETOUCH ULTRA II TEST STRIPS DIRECTED DAILY DX E 11.9 TAKING ONETOUCH ULTRASOFT LANCETS - MISCELLANEOUS DIRECTED DAILY DX E 11.9 TAKING ADMELOG 100U/ML SOLUTION 10U TID CC PLUS CORRECTIONAL DOSE PER SLIDING SCALE SUBCUTANEOUS TID CC MDD 75U TAKING ASPIR-81 81 MG TABLET DELAYED RELEASE 1 TABLET ORALLY ONCE A DAY TAKING CARVEDILOL 25 MG TABLET 1 TABLET WITH FOOD ORALLY TWICE A DAY TAKING COLACE 100 MG CAPSULE 1 CAPSULE NEEDED ORALLY BID TAKING IPRATROPIUM-ALBUTEROL 0.5-2.5 (3) MG/3ML SOLUTION 3 ML PRN INHALATION FOUR TIMES DAILY PRN SOB, NOTES: QID PER [facility] RECORDS TAKING LACTULOSE 20 GM PACKET 40 ML ORALLY THREE TIMES DAILY NEEDED FOR 3-4 LOOSE STOOLS A DAY TAKING LOSARTAN POTASSIUM 50 MG TABLET 0.5 TABLET ORALLY ONCE A DAY TAKING MECLIZINE HCL 25 MG TABLET 1 TABLET NEEDED ORALLY THREE TIMES DAILY TAKING NYSTATIN [id number] UNIT/GM CREAM 1 APPLICATION TO AFFECTED AREA OF ABDOMEN EXTERNALLY TWICE A DAY TAKING OMEPRAZOLE 20 MG TABLET DELAYED RELEASE 1 TABLET ORALLY ONCE A DAY TAKING SPIRONOLACTONE 50 MG TABLET 1 TABLET WITH FOOD ORALLY ONCE A DAY TAKING XIFAXAN 550 MG TABLET 1 TABLET ORALLY-DR SERNA TWICE A DAY TAKING FLONASE 50 MCG/ACT SUSPENSION 1 SPRAY IN EACH NOSTRIL NASALLY TWICE A DAY/PRN, NOTES: PER [facility] RECORDS 1 SPRAY DAILY PRN TAKING BASAGLAR KWIKPEN 100 UNIT/ML SOLUTION PEN-INJECTOR 80U SUBCUTANEOUS BID TAKING ROPINIROLE HCL 4 MG TABLET 1 TABLET ORALLY BID TAKING HYDROXYZINE HCL 10 MG TABLET 2 TABLET NEEDED ORALLY BEFORE BEDTIME TAKING DOCUSATE SODIUM 100 MG CAPSULE 1 CAPSULE NEEDED ORALLY ONCE A DAY TAKING BUMETANIDE 2 MG TABLET DIRECTED ORALLY TAKING ONDANSETRON HCL 4 MG TABLET 1 TABLET ORALLY ONCE A DAY TAKING TOPIRAMATE 50 MG TABLET 1 TABLET ORALLY ONCE A DAY TAKING QVAR REDIHALER 40 MCG/ACT AEROSOL BREATH ACTIVATED 1 PUFF INHALATION ONCE A DAY TAKING DICLOFENAC SODIUM 1 % GEL DIRECTED TRANSDERMAL TAKING DICYCLOMINE HCL 10 MG/ML SOLUTION 1 ML INTRAMUSCULAR FOUR TIMES A DAY TAKING POTASSIUM BICARB-CITRIC ACID 10 MEQ TABLET EFFERVESCENT 1 TABLET DISSOLVE IN 3 TO 4 OUNCES COLD WATER OR JUICE ORALLY TWICE A DAY TAKING GABAPENTIN 300 MG CAPSULE 1 CAPSULE ORALLY ONCE A DAY NOT-TAKING BENTYL 10 MG CAPSULE 1 CAPSULE PRN ORALLY FOUR TIMES A DAY NOT-TAKING BUMEX 2 MG TABLET 1 TAB ORALLY BID NOT-TAKING POTASSIUM CHLORIDE 10 MEQ CAPSULE EXTENDED RELEASE 1 CAPSULE WITH FOOD ORALLY ONCE A DAY NOT-TAKING PROAIR HFA 108 (90 BASE) MCG/ACT AEROSOL SOLUTION 2 PUFFS NEEDED INHALATION EVERY 4 HRS NOT-TAKING TOPAMAX 50 MG TABLET 1 TABLET ORALLY BEFORE BEDTIME NOT-TAKING VITAMIN D3 2000 UNIT CAPSULE 1 CAPSULE ORALLY ONCE A DAY NOT-TAKING VOLTAREN 1 % GEL 4 GRAMS TO LEFT FOREARM TRANSDERMAL FOUR TIMES DAILY PRN TO LEFT KNEE AND LEFT WRIST NOT-TAKING ZOFRAN ODT 4 MG TABLET DISPERSIBLE 1 TABLET PRN NAUSEA ORALLY Q 4 HRS PRN NAUSEA NOT-TAKING ZOLOFT 50 MG TABLET 1 1/2 TABLET ORALLY ONCE A DAY, NOTES: 75 MG NOT-TAKING TRIAMCINOLONE ACETONIDE 0.1 % OINTMENT 1 APPLICATION TO AFFECTED AREA OF HANDS EXTERNALLY TWICE A DAY NOT-TAKING ADMELOG SOLOSTAR NOT-TAKING CYCLOBENZAPRINE HCL 10 MG TABLET 1 TABLET NEEDED ORALLY THREE TIMES A DAY NOT-TAKING OXYCODONE HCL 5 MG TABLET 1 TABLET NEEDED ORALLY EVERY 6 HRS NOT-TAKING LORATADINE 10 MG TABLET 1 TABLET ORALLY ONCE A DAY NOT-TAKING SERTRALINE HCL 50 MG TABLET 1 TABLET ORALLY ONCE A DAY, NOTES: 75 MG DAILY NOT-TAKING BUPROPION HCL ER (XL) 300 MG TABLET EXTENDED RELEASE 24 HOUR 1 TABLET IN THE MORNING ORALLY ONCE A DAY MEDICATION LIST REVIEWED AND RECONCILED WITH THE PATIENT PAST MEDICAL HISTORY DIABETES MELLITUS TYPE 2 WITHOUT COMPLICATION, GOAL A1C 7% HYPERTENSION, GOAL 140/90 DEPRESSION KIDNEY STONES ARTHRITIS (NECK/BACK) RESTLESS LEGS GASTROESOPHAGEAL REFLUX DISEASE WITHOUT ESOPHAGITIS CHAMPAGNE CIRRHOSIS WITH SPLENOMEGALY PULMONARY HYPERTENSION ALLERGIES AVANDIA: RASH - ALLERGY GLUCOPHAGE: RASH - ALLERGY PYRIDIUM: BLEEDING - ALLERGY DILTIAZEM HCL: SWELLING - SIDE EFFECTS LISINOPRIL: COUGH - SIDE EFFECTS CLINDAMYCIN HCL: PRURITIS - SIDE EFFECTS SURGICAL HISTORY C SECTION 1988 GALL BLADDER 1988 BREAST LUMP REMOVED, RIGHT 1993 ENDOMETRIAL ABLATION 1998 MASS REMOVED FROM LEFT LEG 2010 LEFT SHOULDER ROTATOR CUFF 2012 LEFT BREAST CYST REMOVAL 2011 SINUS/ DEVIATED SEPTUM 2013 ACHELIES TENDON--RIGHT 2014 BRONCHOSCOPY 2004, 2006 COLONOSCOPY/ ENDOSCOPY HEART CATHERIZATION 05/2015 D&C & BX OF UTERINE LINING 11/2016 HEART CATH, LIVER BIOPSY 04/2017 FAMILY HISTORY FATHER: , DIAGNOSED WITH HYPERTENSION, DIABETES MOTHER: , HYPERTENSION, UNSPECIFIED HEART DISEASE SIBLINGS: UNSPECIFIED HEART DISEASE, OTHER MALIGNANT NEOPLASM OF UNSPECIFIED SITE 2 BROTHER(S) , 5 SISTER(S) . 3 SON(S) - HEALTHY. SISTER - OF PANCREATIC CANCER\\NBROTHER WITH H\\\/O CVD. SOCIAL HISTORY GENERAL: TOBACCO USE ARE YOU A:CURRENT SMOKER TRYING TO QUIT ARE YOU INTERESTED IN QUITTING?THINKING ABOUT QUITTING COUNSELED THE PATIENT ON SMOKING CESSATION, EDUCATION [id number]/27/2020 HOW MANY CIGARETTES A DAY DO YOU SMOKE?6-10 HOW OFTEN DO YOU SMOKE CIGARETTES?SOME DAYS, BUT NOT EVERY DAY PATIENT COUNSELED ON THE DANGERS OF TOBACCO USE AND URGED TO QUIT:08/04/2019 SMOKING CESSATION INFORMATION GIVEN08/04/2019 LATEX QUESTIONNAIRE LATEX ALLERGY : HAVE YOU EVER DEVELOPED ANY TYPE OF REACTION AFTER HANDLING LATEX PRODUCTS SUCH RUBBER GLOVES, CONDOMS, DIAPHRAGMS, BALLOONS, SOCKS, OR UNDERWEAR?NO LATEX ALLERGY : HAVE YOU EVER DEVELOPED ANY TYPE OF REACTION DURING OR AFTER DENTAL APPOINTMENT, VAGINAL/RECTAL EXAMINATION, SURGICAL PROCEDURE, OR ANY OTHER EXPOSURE?NO LATEX RISK : HAVE YOU EVER HAD ANY DIFFICULTY BREATHING OR HIVES AFTER EATING OR HANDLING ANY FRUITS, OR VEGETABLES; SUCH KIWI, BANANAS, STONE FRUITS, OR CHESTNUTSNO LATEX RISK : DO YOU HAVE A PREVIOUS PERSONAL HISTORY OF MORE THAN NINE SURGERIES, SPINA BIFIDA, OR REPEATED CATHERIZATIONS? NO LATEX RISK : ARE YOU FREQUENTLY EXPOSED TO LATEX PRODUCTS IN YOUR OCCUPATION?NO DATE ASKED : 05/02/2020 BMI CARE GOAL FOLLOW-UP ABOVE NORMAL BMI FOLLOW-UPDIETARY MANAGEMENT EDUCATION, GUIDANCE, AND COUNSELING ALCOHOL SCREENING DID YOU HAVE A DRINK CONTAINING ALCOHOL IN THE PAST YEAR?NO POINTS0 INTERPRETATIONNEGATIVE RECREATIONAL DRUG USE DRUG USE?NO CAFFEINE CAFFEINE USE?YES HOW OFTEN AND HOW MUCH? OCC SEXUAL HX HAD SEX IN THE LAST 12 MONTHS (VAGINAL, ORAL, OR ANAL)?NO HAVE YOU EVER HAD AN STD?NO HIV / HEP-C SCREENING HIV TEST OFFERED TO PATIENT:YES DATE OFFERED:06/02/2018 TEST ACCEPTED:YES HEP-C TEST OFFERED TO PATIENT:YES DATE OFFERED:06/02/2018 TEST ACCEPTED:YES BROCHURE PROVIDED TO PATIENTYES ISLAM [id number] NONE LANGUAGE LANGUAGES SPOKEN:PERSIAN EDUCATION LEVEL OF EDUCATION:HIGH SCHOOL LEARNING BARRIERS / SPECIAL NEEDS CHANGE FROM LAST VISIT?NO BARRIERS TO LEARNING?NO HEARING IMPAIRED?NO VISION IMPAIRED?YES COGNITIVELY IMPAIRED?NO : CORRECTIVE LENSES READINESS TO LEARN?YES LEARNING PREFERENCES?NO LEARNING CAPABILITIES PRESENT?YES EMOTIONAL BARRIERS?NO SPECIAL DEVICES?YES :CANE HUMAN FACTORS SCIENTIST NEEDED?NO DOMESTIC VIOLENCE DO YOU FEEL SAFE IN YOUR ENVIRONMENT?YES OCCUPATION: UNEMPLOYED. DIET: REGULAR. EXERCISE: NO REGULAR EXERCISE. MARITAL STATUS: .. OTHERS AT HOME: CHILD, IN-LAW(S). FROM 0-10, WHAT LEVEL IS YOUR PAIN TODAY? 8. PAIN CLINIC PFS, CLERGY, PUBLIC HEALTH REFERRALS PFS REFERRAL NEEDED?NO CLERGY REFERRAL NEEDED?NO PUBLIC HEALTH REFERRAL NEEDED?NO HAS THE PATIENT BEEN EDUCATED REGARDING HIS/HER PLAN OF CARE?YES HAS THE PATIENT BEEN EDUCATED REGARDING PAIN, THE RISK FOR PAIN, THE IMPORTANCE OF EFFECTIVE PAIN MANAGEMENT, AND THE PAIN ASSESSMENT PROCESS?YES ADVANCE DIRECTIVE ADVANCE DIRECTIVE DISCUSSED WITH PATIENT:YES LELA BALDWIN SON [phone] PACK YRS. HOSPITALIZATION/MAJOR DIAGNOSTIC PROCEDURE SURGICALY RELATED MILD RENAL FAILURE [facility]--HEART CATH 05/2015 ELEVATED AMMONIA LEVELS 12/2016 [facility] INCREASED AMMONIA LEVEL 02/2017 [facility] 04/2017 [facility] - ELEVATED GLUCOSE 07/2017 [facility] - 10/2017 [facility] - ULCERATIVE COLITIS 02/20/18 [facility] - COLITIS 06/2018 [facility] - CELLULITIS 09/2018 [facility] - CELLULITIS 09/3018 [facility] - 10/2018 REVIEW OF SYSTEMS CONSTITUTIONAL: ANY RECENT FEVER NO . CHILLS NO . WEIGHT CHANGE OF UNKNOWN REASONS NO . GASTROENTEROLOGY: NEW UNEXPLAINABLE CHANGES IN BOWEL CONTROL NO . CONSTIPATION NO . GENITOURINARY: ANY NEW CHANGE IN BLADDER CONTROL? NO . NEUROLOGY: NEW ONSET DIZZINESS OR NEUROLOGICAL CHANGES NOT MENTIONED NO . NEW NUMBNESS OR PAIN PATTERNS NOT MENTIONED AND PERTINENT TO TODAY'S VISIT NO . CARDIOLOGY: NEW CHEST PRESSURE NO . NEW CHEST PAIN NO . RESPIRATORY: UNEXPLAINABLE COUGH NO . NEW SHORTNESS OF BREATH NO . VITAL SIGNS WT 348.6 LBS, HT 72 IN, BMI 47.27 INDEX, BP 132/61 MM HG, HR 75 /MIN, RR 18 /MIN, TEMP 97.4 F, OXYGEN SAT % 96%, SAFE IN ENV? (Y/N) YES, NA INITIALS AW 1424, REVIEWED BY: JERAMY. EXAMINATION GENERAL EXAMINATION: HEENT:HEAD:, NORMOCEPHALIC, EYES:, EYES NORMAL, NOSE:, NOSE CLEAR, THROAT: NORMAL. LUNGS:LUNG SOUNDS ARE CLEAR. HEART:HEART RATE REGULAR. ABDOMEN:SOFT AND NOT TENDER, NON-DISTENDED. MUSCULOSKELETAL:*. LUMBAR:MUSCLE STRENGTH TESTING 3/5 BILATERAL LOWER EXTREMITIES. PALPATION: POSITIVE FOR PAIN OVER L/S SPINE. POSITIVE FOR PAIN OVER L/S PARASPINALS,SPECIFIC POINT TENDERNESS OVER LUMBAR FACETS BILAT WITH FACET LOADING.. THORACIC SPINE:NEGATIVE FOR PAIN WITH PALPATION OF THORACIC SPINE. NEGATIVE FOR PAIN WITH PALPATION OF THORACIC PARASPINAL. CERVICAL:+ FOR PAIN WITH PALPATION OF CERVICAL SPINE. + FOR PAIN WITH PALPATION OF CERVICAL PARAASPINALS. + FOR PAIN WITH PALPATION OF TRAPEZIUS BILAT. SKIN:NORMAL, NO RASH. NEUROLOGIC EXAM:ALERT AND ORIENTED X 3, DTRS 1-2+ IN ALL 4 EXTREMITIES, DENIES UPPER EXTREMETIES SENSORY LOSS, DENIES LOWER EXTREMETIES SENSORY LOSS. DIAGNOSTIC:MRI L/S [id number]. ASSESSMENTS OTHER SPONDYLOSIS, LUMBOSACRAL REGION - M47.897 (PRIMARY) TREATMENT OTHER SPONDYLOSIS, LUMBOSACRAL REGION [facility] MRI LUMBAR W/O CONTRAST (CPT [id number] NOTES: DUE TO SIGNIFICANT INCREASE IN LOW BACK PAIN AND FAILURE WITH CONSERVATIVE CARE OVER THE PAST YEAR WE WILL NEED TO OBTAIN AN MRI OF THE LUMBOSACRAL SPINE. PATIENT WILL RETURN TO CLINIC IN 4-6 WEEKS TO REVIEW MRI AND DETERMINE A TREATMENT PLAN BASED ON PATHOLOGY ON MRI IMAGING AND PHYSICAL EXAM. HISTORY OF MULTIPLE COMORBIDITIES. MEDICATION RECOMMENDATIONS WILL BE LIMITED DUE TO THIS. OTHERS NOTES: 05/01/20 STEPHANIE BOB PERSONAL BANKING REPRESENTATIVE. PROCEDURE CODES FA211 ESTABILISHED PATIENT [facility] FACILITY CHARGE DISPOSITION & COMMUNICATION FOLLOW UP 6 WEEKS (REASON: REVIEW MRI L/S SPINE) ELECTRONICALLY SIGNED BY VERO SIDDIQUI ON 05/08/2020 AT 02:39 PM EST DISCLAIMER : THIS IS A VISIT SUMMARY EXTRACTED FROM THE [employer]INICAL[employer]KS CHART. IT IS NOT A COPY OF THE CRITICAL ACCESS [facility]OSPITALINICALLetGive PROGRESS NOTE. MTDD
== END ==
LOC: M PAIN 14:00
PROVIDERS: ATTEND Nurse Practitioner Family
DX: M47.897 Other spondylosis, lumbosacral region (principal); E11.9 Type 2 diabetes mellitus without complications; I10 Essential (primary) hypertension; F32.9 Major depressive disorder, single episode, unspecified; G25.81 Restless legs syndrome; K21.9 Gastro-esophageal reflux disease without esophagitis; I27.20 Pulmonary hypertension, unspecified; K74.60 Unspecified cirrhosis of liver; F17.210 Nicotine dependence, cigarettes, uncomplicated; Z79.82 Long term (current) use of aspirin; Z88.1 Allergy status to other antibiotic agents; Z88.8 Allergy status to other drugs, medicaments and biological substances

== ENCOUNTER 2020-05-10 19:58 | Inpatient (IN) | payer OTHER ==
[~2020-05-10] VITALS: Ht 182.9 cm; Wt 160.4 kg
[2020-05-10] MEDS: busPIRone 10 MG TAB PO SCH (21:00)
[2020-05-10] MEDS: LEVEMIR (INSULIN DETEMIR) 1 UNITS/0.01ML SC SCH (21:00)
[2020-05-10] MEDS: BUMETANIDE 1 MG TAB PO SCH (21:00)
[2020-05-10] MEDS: CARVedilol 12.5 MG TAB PO SCH (21:00)
[2020-05-10 22:43] LABS: BASO % 0.9 % (0.0-1.0); EOS # 0.1 10^3/uL (0.0-0.5); EOS % 3.6 % (0.0-3.0); HEMATOCRIT 35.1 % (36.0-47.0); HEMOGLOBIN 12.3 g/dl (12.0-15.5); LYMPH # 1.3 10^3/uL (1.5-5.0); LYMPH % 40.2 % (24.0-44.0); MEAN CORPUSCULAR HEMOGLOBIN 32.7 pg (27.0-33.0); MEAN CORPUSCULAR VOLUME 93.4 fl (80.0-96.0); MONO # 0.2 10^3/uL (0.0-0.8); MONO % 7.3 % (0.0-5.0); NEUTROPHILS # 1.6 10^3/uL (1.5-8.5); NEUTROPHILS % 47.7 % (36.0-66.0); RED BLOOD COUNT 3.76 10^6/uL (4.00-5.40); WHITE BLOOD COUNT 3.3 10^3/uL (4.0-10.0)
[2020-05-10 23:03] LABS: PLATELET COUNT, AUTOMATED 96 10^3/uL (150-450)
[2020-05-10 23:29] LABS: ALBUMIN 2.8 GM/DL (3.2-5.2); ALT/SGPT 34 U/L (12-78); BILIRUBIN,DIRECT 0.2 MG/DL (0.0-0.2); BILIRUBIN,TOTAL 0.7 MG/DL (0.2-1.0); BLOOD UREA NITROGEN 19 MG/DL (7-18); CALCIUM LEVEL 8.6 MG/DL (8.5-10.1); CARBON DIOXIDE LEVEL 28 MEQ/L (21-32); CHLORIDE LEVEL 105 MEQ/L (98-107); CK-MB VALUE MASS 2.8 NG/ML (<3.6); CPK CREATINE PHOSPHOKINASE 90 U/L (26-192); CREATININE FOR GFR 1.06 MG/DL (0.55-1.30); GLOMERULAR FILTRATION RATE 57.7 (>51); GLUCOSE, FASTING 455 MG/DL (70-100); MB/CK RELATIVE INDEX 3.11 (< OR =4); POTASSIUM SERUM 3.7 MEQ/L (3.5-5.1); SODIUM LEVEL 138 MEQ/L (136-145); TOTAL PROTEIN 6.2 GM/DL (6.4-8.2); TROPONIN I < 0.02 NG/ML (< 0.10)
[2020-05-10] MEDS ORDERED: HumuLIN R (REGULAR) INSULIN (NovoLIN R) **100U/ML** PER UNIT IV ONE (23:45)
[2020-05-11] MEDS ORDERED: LACTULOSE 20 GM/30 ML SYRUP UD PO ONE (00:15)
[2020-05-11] MEDS ORDERED: BUSP10TA PO (00:43)
[2020-05-11] MEDS ORDERED: AMMO12LO TOP (00:43)
[2020-05-11] MEDS ORDERED: HYDR-643 PO (00:43)
[2020-05-11] MEDS ORDERED: DOCU100C16 PO (00:43)
[2020-05-11] MEDS ORDERED: DICL1GEL3 TOP (00:43)
[2020-05-11] MEDS ORDERED: ADME100I SC (00:43)
[2020-05-11] MEDS ORDERED: LOSA50TA88 PO (00:43)
[2020-05-11] MEDS ORDERED: ONDA-195 PO (00:43)
[2020-05-11] MEDS ORDERED: ALBUTEROL 90 MCG/ACT 8GM HFA INHALER INH PRN (01:30)
[2020-05-11] MEDS ORDERED: NYSTATIN CREAM 15 GM TOP PRN (01:30)
[2020-05-11] MEDS ORDERED: FLUTICASONE PROP 0.05% NASAL SPRAY 16 GM (FLONASE) PRN (01:30)
[2020-05-11] MEDS ORDERED: LACTULOSE 20 GM/30 ML SYRUP UD PO PRN (01:30)
--- NOTE | 2020-05-11 01:31 | HPEPDOC ---
[facility] Medical History & Physical Date of Admission May 11, 2020 Date of Service: May 11, 2020 History and Physical CHIEF COMPLAINT: Can't care for self at home HISTORY OF PRESENT ILLNESS: 54-year-old female past medical history of hypertension, diabetes, CHF, depression and anxiety comes to the emergency department because she says she is unable to take care of herself at home anymore and frequently misses taking her medications. Says she's unable to use her walker to get to the bathroom in time and has frequent accidents with nobody to take care of her. Currently says she lives with son and his but they're busy at work and unable to care for her. Says she feels miserable and feeling depressed with no suicidal ideation or intent. She is an insulin-dependent diabetic but frequently forgets to take her insulin at home and says she's unable to inject herself. She also has a history of Champagne cirrhosis for which she should be on lactulose but says she frequently forgets to take that as well. She has no acute complaints at this time. PAST MEDICAL HISTORY: CHAMPAGNE Cirrhosis CHF Hypertension Depression and anxiety PAST SURGICAL HISTORY: Manjit ablation Cholecystectomy 1993 SOCIAL HISTORY: Denies alcohol use Smokes 5-6 cigarettes daily Denies illicit drug use other than cannabis use FAMILY HISTORY: Dad is a diabetic. She has 3 sisters were diabetics. ALLERGIES: Please see below. REVIEW OF SYSTEMS: Constitutional: No sweating or weight loss Eyes: No eye pain or acute blurred vision HENT: Seasonal headaches one currently Cadiovascular: No Chest pain or palpitations Pulm: No SOB or cough Gastrointestinal: No N/V, no abdominal pain. Genitourinary: No dysuria or hematuria Skin: No rash or jaundice Neurological: Doing overall lousy and weak Rest per HPI HOME MEDICATIONS: Please see below. PHYSICAL EXAMINATION: Constitutional: Awake and alert, in no apparent distress. Obese. ENT: Sclera are clear. Mucosa is moist. Respiratory: Lungs CTA bilaterally. No respiratory distress. No use of ac cessory muscles. Cardiovascular: RRR S1 and S2 are normal, no murmur. No JVD Gastrointestinal: Abdomen is soft, non distended, non tender, BS present. Musculoskeletal: 1+ pitting edema bilaterally up to knees. Neurologic: No focal neurological deficit. Mental Status: A&O x3, normal affect. Tangential speech. Skin: Warm, dry LABORATORY DATA: See below. IMAGING: MICROBIOLOGY: Please see below. ASSESSMENT/PLAN 54-year-old female past medical history of hypertension, diabetes, CHF, depre ssion and anxiety comes to the emergency department because she says she is unable to take care of herself at home anymore and frequently misses taking her medications. Found to have elevated blood sugars due to insulin noncompliance. Will be admitted to medical unit for further management. # Uncontrolled DM: none compliant with insulin at home. Levemir qhs 40u BID based on her weight, titrate up as needed (says taking 80U bid). ISS. Frequent Accu-Cheks. Hypoglycemic precautions. # Champagne cirrhosis: Continue home dose of lactulose. Ammonia 58 in ED which is around baseline. Follows with GI in [place] # Hypertension: Resume home meds. Monitor and titrate. # CHFpEF: Echo 11/2019 showing EF 65-70% grade 2 LV diastolic dysfunction. +1 lower extremity pitting edema on exam which patient says is her baseline. Continue home meds. # Depression and anxiety: continue home meds. # Diabetic peripheral neuropathy: Continue home meds # GERD: continue protonix # Asthma: albuterol PRN # Polypharmacy: attempted to discontinue none essential home meds. # Falls at home: Uses walker at home. PT/OT. # Disposition: Social work for placement. Unable to take care of herself at home or take her medications. # DVT prophylaxis: Lovenox A Yousef Hospitalist Vital Signs Vital Signs Date Time Temp Pulse Resp B/P (MAP) Pulse Ox O2 Delivery O2 Flow Rate FiO2 05/10/20 23:58 74 20 96 Room Air 05/10/20 23:50 136/63 (87) 05/10/20 19:59 97.6 Laboratory Data Labs 24H Laboratory Tests 2 05/10/20 22:37: Immature Granulocyte % (Auto) 0.3, Neutrophils (%) (Auto) 47.7, Lymphocytes (%) (Auto) 40.2, Monocytes (%) (Auto) 7.3H, Eosinophils (%) (Auto) 3.6H, Basophils (%) (Auto) 0.9, Neutrophils # (Auto) 1.6, Lymphocytes # (Auto) 1.3L, Monocytes # (Auto) 0.2, Eosinophils # (Auto) 0.1, Basophils # (Auto) 0.0, Nucleated Red Blood Cells % (auto) 0.0, Immature Platelet Fraction 2.6, Anion Gap 5L, Glomerular Filtration Rate 57.7, Calcium Level 8.6, Total Bilirubin 0.7, Direct Bilirubin 0.2, Aspartate Amino Transf (AST/SGOT) 32, Alanine Aminotransferase (ALT/SGPT) 34, Alkaline Phosphatase 134H, Ammonia 58H, Total Creatine Kinase 90, Creatine Kinase MB 2.8, Creatine Kinase MB Relative Index 3.11, Troponin I < 0.02, Total Protein 6.2L, Albumin 2.8L, Albumin/Globulin Ratio 0.8L, Thyroid Stimulating Hormone (TSH) 2.060 CBC/BMP Laboratory Tests 05/10/20 22:37 Home Medications Scheduled Ammonium Lactate (Ammonium Lactate) 12% Lotion, 1 DOSE TOP DAILY Aspirin (Aspirin EC) 81 Mg Tabec, 81 MG PO DAILY Bumetanide (Bumetanide) 2 Mg Tab, 2 MG PO BID Buspirone HCl (Buspirone HCl) 10 Mg Tablet, 10 MG PO BID Carvedilol (Carvedilol) 25 Mg Tab, 25 MG PO BID Dicyclomine HCl (Dicyclomine HCl) 10 Mg Capsule, 10 MG PO QID 0800, 1200, 1700, 2000 Docusate Sodium (Docusate Sodium) 100 Mg Capsule, 100 MG PO BID Ergocalciferol (Vitamin D2) (Vitamin D2) 2,000 Unit Cap, 2,000 UNIT PO DAILY Ferrous Sulfate (Ferrous Sulfate) 325 Mg Tablet.dr, 325 MG PO DAILY Hydroxyzine HCl (Hydroxyzine HCl) 10 Mg Tablet, 20 MG PO QHS Insulin Glargine,Hum.rec.anlog (Basaglar Kwikpen U-100) 100 Unit/Ml Inj, 80 UNIT SC BID Insulin Lispro (Admelog) 100 Unit/Ml Inj, 15 UNITS SC AC Insulin Lispro (Admelog) 100 Unit/1 Ml Vial, 1 DOSE SC ACHS PER SLIDING SCALE Losartan Potassium (Losartan Potassium) 50 Mg Tablet, 25 MG PO QHS Omeprazole (Omeprazole) 20 Mg Cap, 20 MG PO DAILY Potassium Chloride (Potassium Chloride) 10 Meq Cap, 10 MEQ PO QHS Rifaximin (Xifaxan) 550 Mg Tab, 550 MG PO BID 0800, 1700 Ropinirole HCl (Ropinirole HCl) 4 Mg Tablet, 4 MG PO BID Sertraline HCl (Sertraline HCl) 50 Mg Tablet, 75 MG PO DAILY Spironolactone (Spironolactone) 50 Mg Tab, 50 MG PO DAILY Topiramate (Topiramate) 50 Mg Tablet, 50 MG PO QHS Scheduled PRN Albuterol Sulfate (Proair Hfa) 108 Mcg/Act Aer, 2 PUFF INH Q4H PRN for SHORTNESS OF BREATH Diclofenac Sodium (Diclofenac Sodium) 1% 100GM Gel..gram., 2 GM TOP QID PRN for PAIN APPLY TO KNEES Fluticasone Propionate (Fluticasone Propionate) 50 Mcg/Act Spr, 1 SPRAY NA DAILY PRN for NASAL CONGESTION Lactulose (Lactulose) 10 Gm/15 Ml Solution, 15 ML PO TID PRN for CONSTIPATION TAKES MEDICATION TO MAINTAIN 3-4 BOWEL MOVEMENTS PER DAY Loratadine (Loratadine) 10 Mg Tablet, 10 MG PO QHS PRN for ALLERGY SYMPTOMS Meclizine HCl (Meclizine HCl) 25 Mg Tab, 25 MG PO TID PRN for VERTIGO/DIZZINESS Nystatin (Nystatin) 15 Gm Cream..g., 1 DOSE TOP BID PRN for RASH APPLY TO AREAS OF ABDOMEN Ondansetron HCl (Ondansetron HCl) 4 Mg Tablet, 4 MG PO TID PRN for NAUSEA OR VOMITING Allergies Coded Allergies: clindamycin (Verified Allergy, Intermediate, itching, 12/21/19) diltiazem (Verified Allergy, Intermediate, SWELLING IN HANDS, FEET AND LEGS, 12/21/19) metformin (Verified Allergy, Intermediate, RASH, 12/21/19) phenazopyridine (Verified Adverse Reaction, Intermediate, CAUSES BLEEDING, 12/21/19) lisinopril (Verified Adverse Reaction, Mild, COUGH, 12/21/19) rosiglitazone (Verified Adverse Reaction, Mild, WATER RETENTION, 12/21/19) A-FIB/CHADSVASC A-FIB History Current/History of A-Fib/PAF?: No RAHUL RAMIREZ MD May 11, 2020 01:31
[2020-05-11] MEDS ORDERED: GLUCOSE 4GM CHEW TABLET PO PRN (01:45)
[2020-05-11] MEDS ORDERED: GLUCAGON INJ 1MG VIAL SC PRN (01:45)
[2020-05-11] MEDS ORDERED: DEXTROSE 50% 50 ML SYRINGE IV PRN (01:45)
[2020-05-11] MEDS ORDERED: MOM 30ML SUSPENSION UDC PO PRN (01:45)
[2020-05-11] MEDS: ACETAMINOPHEN TAB 650MG DOSE (2X325MG) PO PRN (02:58)
[2020-05-11] MEDS ORDERED: ACETAMINOPHEN 500 MG TAB PO ONE (03:00)
[2020-05-11 03:29] VITALS: BP 148/62
[2020-05-11] MEDS: hydrOXYzine 10 MG TAB PO SCH ×2 (04:57→21:15)
[2020-05-11] MEDS: TOPIRAMATE (TopAMAX) 25 MG TAB PO SCH ×2 (04:58→21:16)
[2020-05-11] MEDS: POTASSIUM CHLORIDE 10 MEQ SR TABLET PO SCH ×2 (04:59→21:13)
[2020-05-11] MEDS: LOSARTAN 50MG TABLET PO SCH ×2 (04:59→21:14)
[2020-05-11] MEDS: LEVEMIR (INSULIN DETEMIR) 1 UNITS/0.01ML SC SCH ×3 (05:01→21:09)
[2020-05-11 06:06] LABS: HEMOGLOBIN 11.9 g/dl (12.0-15.5); MEAN CORPUSCULAR HEMOGLOBIN 32.4 pg (27.0-33.0); MEAN CORPUSCULAR VOLUME 92.6 fl (80.0-96.0); PLATELET COUNT, AUTOMATED 103 10^3/uL (150-450); RED BLOOD COUNT 3.67 10^6/uL (4.00-5.40); WHITE BLOOD COUNT 3.7 10^3/uL (4.0-10.0)
[2020-05-11 06:40] LABS: ALBUMIN 2.8 GM/DL (3.2-5.2); ALT/SGPT 29 U/L (12-78); BILIRUBIN,TOTAL 0.9 MG/DL (0.2-1.0); BLOOD UREA NITROGEN 18 MG/DL (7-18); CARBON DIOXIDE LEVEL 24 MEQ/L (21-32); CHLORIDE LEVEL 106 MEQ/L (98-107); CREATININE FOR GFR 0.87 MG/DL (0.55-1.30); GLOMERULAR FILTRATION RATE > 60.0 (>51); GLUCOSE, FASTING 365 MG/DL (70-100); POTASSIUM SERUM 3.3 MEQ/L (3.5-5.1); SODIUM LEVEL 138 MEQ/L (136-145); TOTAL PROTEIN 5.9 GM/DL (6.4-8.2)
[2020-05-11] MEDS: ASPIRIN 81 MG ENTERIC TAB PO SCH (08:28)
[2020-05-11] MEDS: SPIRONOLACTONE 50 MG TAB PO SCH (08:28)
[2020-05-11] MEDS: busPIRone 10 MG TAB PO SCH ×3 (08:29→21:00)
[2020-05-11] MEDS: OMEPRAZOLE 20 MG CAP PO SCH (08:29)
[2020-05-11] MEDS: ENOXAPARIN 40MG/0.4ML SYRINGE (J1650 PER 10MG) SC SCH (08:29)
[2020-05-11] MEDS: SERTRALINE HCL 50 MG TAB PO SCH (08:30)
[2020-05-11] MEDS: rifAXIMin 550 MG TAB (XIFAXAN) PO SCH ×2 (08:31→17:30)
[2020-05-11] MEDS: CARVedilol 12.5 MG TAB PO SCH ×2 (08:34→21:15)
[2020-05-11] MEDS: HumaLOG INSULIN (NovoLOG) PER UNIT SC SCH ×4 (08:35→21:10)
[2020-05-11] MEDS: BUMETANIDE 1 MG TAB PO SCH ×2 (08:35→21:10)
[2020-05-11] MEDS: LACTIC ACID 12% LOTION 225 GM BTL TOP SCH (08:46)
[2020-05-11 14:00] VITALS: BP 125/56
--- NOTE | 2020-05-11 14:01 | ECGEPIP ---
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
[2020-05-11 20:42] VITALS: BP 158/62
[2020-05-12] MEDS: rOPINIRole 1MG TAB PO SCH ×3 (01:02→20:33)
[2020-05-12 06:08] VITALS: BP 118/56
[2020-05-12] MEDS: HumaLOG INSULIN (NovoLOG) PER UNIT SC SCH ×4 (08:49→20:38)
[2020-05-12] MEDS: OMEPRAZOLE 20 MG CAP PO SCH (08:50)
[2020-05-12] MEDS: ASPIRIN 81 MG ENTERIC TAB PO SCH (08:50)
[2020-05-12] MEDS: LEVEMIR (INSULIN DETEMIR) 1 UNITS/0.01ML SC SCH ×2 (08:50→20:37)
[2020-05-12] MEDS: busPIRone 10 MG TAB PO SCH ×3 (08:51→21:00)
[2020-05-12] MEDS: rifAXIMin 550 MG TAB (XIFAXAN) PO SCH ×2 (08:51→17:59)
[2020-05-12] MEDS: POTASSIUM CHLORIDE 10 MEQ SR TABLET PO SCH ×2 (08:52→20:35)
[2020-05-12] MEDS: CARVedilol 12.5 MG TAB PO SCH ×2 (08:52→20:36)
[2020-05-12] MEDS: BUMETANIDE 1 MG TAB PO SCH ×2 (08:53→20:33)
[2020-05-12] MEDS: SERTRALINE HCL 50 MG TAB PO SCH (08:54)
[2020-05-12] MEDS: SPIRONOLACTONE 50 MG TAB PO SCH (08:54)
[2020-05-12] MEDS: ENOXAPARIN 40MG/0.4ML SYRINGE (J1650 PER 10MG) SC SCH (08:55)
[2020-05-12] MEDS: LACTIC ACID 12% LOTION 225 GM BTL TOP SCH (08:56)
--- NOTE | 2020-05-12 10:49 | IPNPDOC ---
Text Note Date of Service The patient was seen on 05/12/20. NOTE SUBJECTIVE: Has difficulty sleeping at night and sleeps more during the day. Nonuremic issues overnight and no complaints this morning PHYSICAL EXAM: VITALS: As below GEN: Awake and alert, Oriented x 3, in no apparent distress. Obese. ENT: Sclera are clear. Mucosa is moist. Respiratory: Lungs CTA bilaterally. No respiratory distress. No use of accessory muscles. Cardiovascular: RRR S1 and S2 are normal, no murmur. No JVD Gastrointestinal: Abdomen is soft, non distended, non tender, BS present. Obese Musculoskeletal: 1+ pitting edema bilaterally up to knees, scar on her left leg Neurologic: No focal neurological deficit. No flap Mental Status: A&O x3, normal affect. Skin: Warm, dry LABS AND RADIOLOGY :reviewed Assessment and plan: 54-year-old female past medical history of hypertension, diabetes, CHF, depression and anxiety comes to the emergency department because she says she is unable to take care of herself at home anymore and frequently misses taking her medications. Says she's unable to use her walker to get to the bathroom in time and has frequent accidents with nobody to take care of her. Currently says she lives with son and his but they're busy at work and unable to care for her. Says she feels miserable and feeling depressed with no suicidal ideation or intent. She is an insulin-dependent diabetic but frequently forgets to take her insulin at home and says she's unable to inject herself. She also has a history of Ponce cirrhosis for which she should be on lactulose but says she frequently forgets to take that as well. She has no acute complaints at this time. 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 Uncontrolled DM with peripheral neuropathy none compliant with insulin at home. Continue levemir and lispro at home dosage. FS AC and HS, Hypoglycemic precautions. Ponce cirrhosis with chronic hepatic encephalopathy, chronic thrombocytopenia No varices as of January 2020. Continue home dose of lactulose, bumax, spironolactone, rifaximin Ammonia 58 in ED which is around baseline. Follows with GI in [place] Morbid obesity complicating care Hypertension Coreg, losartan CHFpEF Echo 11/2019 showing EF 65-70% grade 2 LV diastolic dysfunction. continue Bumax and spironolactone Depression and anxiety: buspirone, sertraline GERD continue protonix Asthma: albuterol PRN RLS ropinirole Falls at home: Uses walker at home. PT/OT. 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 Unable to take care of herself at home or take her medications. Family unable to provide needed amount of care. DVT prophylaxis: Lovenox VS,Fishbone, I+O VS, Fishbone, I+O Laboratory Tests 05/11/20 05:33 Vital Signs Date Time Temp Pulse Resp B/P (MAP) Pulse Ox O2 Delivery O2 Flow Rate FiO2 05/11/20 21:15 78 158/62 05/11/20 20:42 98.4 20 96 Room Air I&O- Last 24 Hours up to 6 AM 05/12/20 07:00 Intake Total 900 ml Output Total 300 ml Balance 600 ml JANET RAO MD May 12, 2020 05:41
[2020-05-12 14:00] VITALS: BP 114/52
[2020-05-12] MEDS: hydrOXYzine 10 MG TAB PO SCH (20:33)
[2020-05-12] MEDS: LOSARTAN 50MG TABLET PO SCH (20:34)
[2020-05-12] MEDS: TOPIRAMATE (TopAMAX) 25 MG TAB PO SCH (20:35)
[2020-05-12 22:00] VITALS: BP 138/65
[2020-05-12] MEDS: NYSTATIN 100,000 UNITS/GM TOPICAL PWD 15 GM TOP SCH (22:35)
[2020-05-12] MEDS: ACETAMINOPHEN TAB 650MG DOSE (2X325MG) PO PRN (22:35)
[2020-05-13] MEDS: ACETAMINOPHEN TAB 650MG DOSE (2X325MG) PO PRN ×3 (05:43→22:24)
[2020-05-13 06:00] VITALS: BP 120/56
[2020-05-13] MEDS: HumaLOG INSULIN (NovoLOG) PER UNIT SC SCH ×4 (08:00→22:19)
[2020-05-13] MEDS: LEVEMIR (INSULIN DETEMIR) 1 UNITS/0.01ML SC SCH ×2 (08:15→22:18)
[2020-05-13] MEDS: SPIRONOLACTONE 50 MG TAB PO SCH (08:15)
[2020-05-13] MEDS: rifAXIMin 550 MG TAB (XIFAXAN) PO SCH ×2 (08:15→16:57)
[2020-05-13] MEDS: rOPINIRole 1MG TAB PO SCH ×2 (08:15→22:19)
[2020-05-13] MEDS: ENOXAPARIN 40MG/0.4ML SYRINGE (J1650 PER 10MG) SC SCH (08:15)
[2020-05-13] MEDS: ASPIRIN 81 MG ENTERIC TAB PO SCH (08:15)
[2020-05-13] MEDS: busPIRone 10 MG TAB PO SCH ×3 (08:16→22:21)
[2020-05-13] MEDS: CARVedilol 12.5 MG TAB PO SCH ×2 (08:16→22:25)
[2020-05-13] MEDS: SERTRALINE HCL 50 MG TAB PO SCH (08:16)
[2020-05-13] MEDS: OMEPRAZOLE 20 MG CAP PO SCH (08:17)
[2020-05-13] MEDS: BUMETANIDE 1 MG TAB PO SCH ×2 (08:17→22:19)
[2020-05-13] MEDS: POTASSIUM CHLORIDE 10 MEQ SR TABLET PO SCH ×2 (08:17→22:21)
[2020-05-13] MEDS: LACTIC ACID 12% LOTION 225 GM BTL TOP SCH (08:18)
[2020-05-13] MEDS: NYSTATIN 100,000 UNITS/GM TOPICAL PWD 15 GM TOP SCH ×2 (08:18→22:26)
--- NOTE | 2020-05-13 10:34 | IPNPDOC ---
Text Note Date of Service The patient was seen on 05/13/20. NOTE SUBJECTIVE: Has difficulty sleeping at night and sleeps more during the day. No new issues overnight and no complaints this morning. She tends to fall asleep even during conversations. PHYSICAL EXAM: VITALS: As below GEN: Awake and alert, Oriented x 3, in no apparent distress. Obese. ENT: Sclera are clear. Mucosa is moist. Respiratory: Lungs CTA bilaterally. No respiratory distress. No use of accessory muscles. Cardiovascular: RRR S1 and S2 are normal, no murmur. No JVD Gastrointestinal: Abdomen is soft, non distended, non tender, BS present. Obese Musculoskeletal: 1+ pitting edema bilaterally up to knees, scar on her left leg Neurologic: No focal neurological deficit. No flap Mental Status: A&O x3, normal affect. Skin: Warm, dry LABS AND RADIOLOGY :reviewed Assessment and plan: 54-year-old female past medical history of hypertension, diabetes, CHF, depression and anxiety comes to the emergency department because she says she is unable to take care of herself at home anymore and frequently misses taking her medications. Says she's unable to use her walker to get to the bathroom in time and has frequent accidents with nobody to take care of her. Currently says she lives with son and his but they're busy at work and unable to care for her. Says she feels miserable and feeling depressed with no suicidal ideation or intent. She is an insulin-dependent diabetic but frequently forgets to take her insulin at home and says she's unable to inject herself. She also has a history of Ponce cirrhosis for which she should be on lactulose but says she frequently forgets to take that as well. She has no acute complaints at this time. 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 Uncontrolled DM with peripheral neuropathy none compliant with insulin at home. Continue levemir and lispro at home dosage. FS AC and HS, Hypoglycemic precautions. Ponce cirrhosis with chronic hepatic encephalopathy, chronic thrombocytopenia No varices as of January 2020. Continue home dose of lactulose, bumax, spironolactone, rifaximin Ammonia 58 in ED which is around baseline. Follows with GI in [place] Sleeps the majority time of the day and seems to have poor short term memory Morbid obesity complicating care Hypertension Coreg, losartan CHFpEF Echo 11/2019 showing EF 65-70% grade 2 LV diastolic dysfunction. continue Bumax and spironolactone Depression and anxiety: buspirone, sertraline GERD continue protonix Asthma: albuterol PRN RLS ropinirole [place] at home: Uses walker at home. PT/OT. 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 Unable to take care of herself at home or take her medications as she has been very forgetful. Family unable to provide needed amount of care. DVT prophylaxis: Lovenox VS,Fishbone, I+O VS, Fishbone, I+O Vital Signs Date Time Temp Pulse Resp B/P (MAP) Pulse Ox O2 Delivery O2 Flow Rate FiO2 05/13/20 08:16 69 120/56 05/13/20 06:00 97.8 18 96 Room Air I&O- Last 24 Hours up to 6 AM 05/13/20 05:59 Intake Total 2160 ml Output Total 1900 ml Balance 260 ml JANET RAO MD May 13, 2020 10:34
[2020-05-13 14:00] VITALS: BP 127/60
[2020-05-13 22:00] VITALS: BP 136/64
[2020-05-13] MEDS: LOSARTAN 50MG TABLET PO SCH (22:20)
[2020-05-13] MEDS: hydrOXYzine 10 MG TAB PO SCH (22:23)
[2020-05-13] MEDS: TOPIRAMATE (TopAMAX) 25 MG TAB PO SCH (22:25)
[2020-05-14] MEDS: ACETAMINOPHEN TAB 650MG DOSE (2X325MG) PO PRN (02:28)
[2020-05-14 06:00] VITALS: BP 116/55
[2020-05-14] MEDS: BUMETANIDE 1 MG TAB PO SCH ×2 (08:29→22:15)
[2020-05-14] MEDS: rifAXIMin 550 MG TAB (XIFAXAN) PO SCH ×2 (08:29→17:18)
[2020-05-14] MEDS: rOPINIRole 1MG TAB PO SCH ×2 (08:29→22:15)
[2020-05-14] MEDS: SERTRALINE HCL 50 MG TAB PO SCH (08:30)
[2020-05-14] MEDS: OMEPRAZOLE 20 MG CAP PO SCH (08:30)
[2020-05-14] MEDS: CARVedilol 12.5 MG TAB PO SCH ×2 (08:30→22:13)
[2020-05-14] MEDS: SPIRONOLACTONE 50 MG TAB PO SCH (08:30)
[2020-05-14] MEDS: POTASSIUM CHLORIDE 10 MEQ SR TABLET PO SCH ×2 (08:30→22:13)
[2020-05-14] MEDS: ASPIRIN 81 MG ENTERIC TAB PO SCH (08:30)
[2020-05-14] MEDS: HumaLOG INSULIN (NovoLOG) PER UNIT SC SCH ×4 (08:31→22:17)
[2020-05-14] MEDS: ENOXAPARIN 40MG/0.4ML SYRINGE (J1650 PER 10MG) SC SCH (08:31)
[2020-05-14 08:32] LABS: HEMATOCRIT 34.8 % (36.0-47.0); HEMOGLOBIN 12.4 g/dl (12.0-15.5); MEAN CORPUSCULAR HEMOGLOBIN 33.5 pg (27.0-33.0); MEAN CORPUSCULAR HGB CONC 35.6 g/dl (32.0-36.5); MEAN CORPUSCULAR VOLUME 94.1 fl (80.0-96.0); WHITE BLOOD COUNT 2.8 10^3/uL (4.0-10.0)
[2020-05-14] MEDS: busPIRone 10 MG TAB PO SCH ×2 (08:32→21:00)
[2020-05-14] MEDS: LACTIC ACID 12% LOTION 225 GM BTL TOP SCH (08:32)
[2020-05-14] MEDS: LEVEMIR (INSULIN DETEMIR) 1 UNITS/0.01ML SC SCH ×2 (08:32→22:18)
[2020-05-14] MEDS: NYSTATIN 100,000 UNITS/GM TOPICAL PWD 15 GM TOP SCH ×2 (08:33→21:00)
[2020-05-14 08:35] LABS: PLATELET COUNT, AUTOMATED 95 10^3/uL (150-450)
[2020-05-14 09:09] LABS: BLOOD UREA NITROGEN 20 MG/DL (7-18); CALCIUM LEVEL 8.4 MG/DL (8.5-10.1); CARBON DIOXIDE LEVEL 25 MEQ/L (21-32); CHLORIDE LEVEL 109 MEQ/L (98-107); CREATININE FOR GFR 1.01 MG/DL (0.55-1.30); GLOMERULAR FILTRATION RATE > 60.0 (>51); GLUCOSE, FASTING 237 MG/DL (70-100); POTASSIUM SERUM 3.4 MEQ/L (3.5-5.1); SODIUM LEVEL 140 MEQ/L (136-145)
[2020-05-14] MEDS ORDERED: traMADol 50 MG TAB PO PRN (12:30)
--- NOTE | 2020-05-14 12:33 | IPNPDOC ---
Text Note Date of Service The patient was seen on 05/14/20. NOTE SUBJECTIVE: Has difficulty sleeping at night and sleeps more during the day. No new issues overnight and no complaints this morning. She is very sad and emotional today. She says she feels very depressed that she is here and not with her family. That she is sick of not being able to do all the things by herself. SHe is depressed that her memory is becoming poor and she cannot remember things. She feels over whelmed with what every one is telling her to do and she feels all these things happening together is too much. I talked with her for 30 mins explaining whats going on and how we are trying to help her, counselled her that she is not alone and we will set up everything in a way that will be safe for her so that she can get everything in line and make her feel better and help her cope. I asked if she wanted to speak with a counsellor or psychiatrist. She tells me that she has a counsellor with [facility] but he cancelled this week as he is sick. Tells me she feels she is on too many medications that make her groggy and feel like a "Zombie". I assured her that i will look into her medications and see if any can be stopped or dose reduced. She complained of severe low back pain more on the left low back and mid back. PHYSICAL EXAM: VITALS: As below GEN: Awake and alert, Oriented x 3, in no apparent distress. Obese. ENT: Sclera are clear. Mucosa is moist. Respiratory: Lungs CTA bilaterally. No respiratory distress. No use of accessory muscles. Cardiovascular: RRR S1 and S2 are normal, no murmur. No JVD Gastrointestinal: Abdomen is soft, non distended, non tender, BS present. Obese Musculoskeletal: 1+ pitting edema bilaterally up to knees, scar on her left leg Neurologic: No focal neurological deficit. No flap Mental Status: A&O x3, normal affect. Skin: Warm, dry LABS AND RADIOLOGY :reviewed Assessment and plan: 54-year-old female past medical history of hypertension, diabetes, CHF, depression and anxiety comes to the emergency department because she says she is unable to take care of herself at home anymore and frequently misses taking her medications. Says she's unable to use her walker to get to the bathroom in time and has frequent accidents with nobody to take care of her. Currently says she lives with son and his but they're busy at work and unable to care for her. Says she feels miserable and feeling depressed with no suicidal ideation or intent. She is an insulin-dependent diabetic but frequently forgets to take her insulin at home and says she's unable to inject herself. She also has a history of Ponce cirrhosis for which she should be on lactulose but says she frequently forgets to take that as well. She has no acute complaints at this time. 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 Uncontrolled DM with peripheral neuropathy none compliant with insulin at home. Continue levemir and lispro at home dosage. FS AC and HS, Hypoglycemic precautions. Pocne cirrhosis with chronic hepatic encephalopathy, chronic thrombocytopenia No varices as of January 2020. Continue home dose of lactulose, bumax, spironolactone, rifaximin Ammonia 58 in ED which is around baseline. Follows with GI in [place] Sleeps the majority time of the day and seems to have poor short term memory Morbid obesity complicating care Hypertension Coreg, losartan CHFpEF Echo 11/2019 showing EF 65-70% grade 2 LV diastolic dysfunction. continue Bumax and spironolactone Depression and anxiety: buspirone, sertraline continue to follow with outpatient provider. GERD continue protonix Asthma: albuterol PRN RLS ropinirole [place] at home: Uses walker at home. PT/OT. 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 Unable to take care of herself at home or take her medications as she has been very forgetful. Family unable to provide needed amount of care. DVT prophylaxis: Lovenox VS,Fishbone, I+O VS, Fishbone, I+O Laboratory Tests 05/14/20 07:57 Vital Signs Date Time Temp Pulse Resp B/P (MAP) Pulse Ox O2 Delivery O2 Flow Rate FiO2 05/14/20 08:30 71 116/55 05/14/20 06:00 97.6 18 98 Room Air I&O- Last 24 Hours up to 6 AM 05/14/20 05:59 Intake Total 1410 ml Output Total 2500 ml Balance -1090 ml JANET RAO MD May 14, 2020 12:33
[2020-05-14 14:00] VITALS: BP 117/56
[2020-05-14] MEDS: LACTULOSE 20 GM/30 ML SYRUP UD PO SCH ×2 (16:00→21:00)
[2020-05-14 22:00] VITALS: BP 146/68
[2020-05-14] MEDS: TOPIRAMATE (TopAMAX) 25 MG TAB PO SCH (22:12)
[2020-05-14] MEDS: hydrOXYzine 10 MG TAB PO SCH (22:15)
[2020-05-14] MEDS: LOSARTAN 50MG TABLET PO SCH (22:15)
[2020-05-15 06:37] VITALS: BP 113/64
[2020-05-15] MEDS ORDERED: rOPINIRole 2MG TAB PO SCH (07:52)
[2020-05-15] MEDS: OMEPRAZOLE 20 MG CAP PO SCH (07:53)
[2020-05-15] MEDS: BUMETANIDE 1 MG TAB PO SCH (07:53)
[2020-05-15] MEDS: SERTRALINE HCL 50 MG TAB PO SCH (07:53)
[2020-05-15] MEDS: SPIRONOLACTONE 50 MG TAB PO SCH (07:53)
[2020-05-15] MEDS: rifAXIMin 550 MG TAB (XIFAXAN) PO SCH (07:53)
[2020-05-15 07:54] VITALS: BP 113/64
[2020-05-15] MEDS: CARVedilol 12.5 MG TAB PO SCH (07:54)
[2020-05-15] MEDS: ASPIRIN 81 MG ENTERIC TAB PO SCH (07:54)
[2020-05-15] MEDS: POTASSIUM CHLORIDE 10 MEQ SR TABLET PO SCH (07:54)
[2020-05-15] MEDS: LEVEMIR (INSULIN DETEMIR) 1 UNITS/0.01ML SC SCH (07:55)
[2020-05-15] MEDS: LACTULOSE 20 GM/30 ML SYRUP UD PO SCH (07:56)
[2020-05-15] MEDS: HumaLOG INSULIN (NovoLOG) PER UNIT SC SCH ×2 (07:56→12:21)
[2020-05-15] MEDS: busPIRone 10 MG TAB PO SCH (07:56)
[2020-05-15] MEDS: NYSTATIN 100,000 UNITS/GM TOPICAL PWD 15 GM TOP SCH (09:00)
[2020-05-15] MEDS: LACTIC ACID 12% LOTION 225 GM BTL TOP SCH (10:20)
== END 2020-05-15 13:30 | disposition home health service (06) ==
LOC: M ED 19:58 → M ED INP 05-11 01:40 → ENRESERV 05-11 02:50 → M MS5PR 05-11 03:15
PROVIDERS: ADMIT Family Medicine; ATTEND Internal Medicine Nephrology
DX: K75.81 Nonalcoholic steatohepatitis (NASH) (principal); I11.0 Hypertensive heart disease with heart failure; E11.51 Type 2 diabetes mellitus with diabetic peripheral angiopathy without gangrene; I50.32 Chronic diastolic (congestive) heart failure; E11.65 Type 2 diabetes mellitus with hyperglycemia; E66.01 Morbid (severe) obesity due to excess calories; Z68.42 Body mass index [BMI] 45.0-49.9, adult; K74.60 Unspecified cirrhosis of liver; K72.10 Chronic hepatic failure without coma; R29.6 Repeated falls; J45.909 Unspecified asthma, uncomplicated; F41.9 Anxiety disorder, unspecified; F32.9 Major depressive disorder, single episode, unspecified; K21.9 Gastro-esophageal reflux disease without esophagitis

== ENCOUNTER → 2020-05-17 | Outpatient (CLI) | payer OTHER ==
[~2020-05-17] MED LIST changes: +AMMO12LO TOP; +BUSP10TA PO; +DOCU100C16 PO; +HYDR-643 PO; +ONDA-195 PO
--- NOTE | 2020-05-17 14:31 | REP ---
INDICATION: SPONDYLOSIS. Back pain. COMPARISON: Comparison MRI study is from July 18, 2018.. TECHNIQUE: Sagittal and axial T1 and T2-weighted scans are acquired in the usual fashion with and without fat saturation. Sequences include spin echo, turbo spin-echo, and STIR imaging sequences. FINDINGS: There is straightening of the normal lumbar lordosis. Alignment is otherwise normal. Vertebral body heights are preserved. Tip of the conus medullaris is normal in position and appearance at L1. No significant extra vertebral abnormality is observed. Axial and sagittal images taken at L1-L2 again demonstrate minimal diffuse disc bulging indenting the ventral margin of the thecal sac. No spinal stenosis or foraminal narrowing is seen. At L2-L3, there is mild diffuse disc bulging. Degenerative narrowing of the disc is again seen. There is no evidence of spinal stenosis or foraminal narrowing. Mild facet hypertrophy is noted on the right. Changes at L2-L3 are stable from the prior exam. At L3-L4, there is degenerative disc narrowing. Diffuse disc bulging is evident. This indents the ventral margin of the thecal sac. There is mild ligamentum flavum and facet hypertrophy. No canal or neural foraminal narrowing is appreciated. Findings are unchanged. At L4-L5, there is facet hypertrophy in addition to disc bulging and posterior osteophytic ridging. There is mild foraminal narrowing on the right at L4-5. This is due to disc bulging and facet hypertrophy and is unchanged. No central canal stenosis is seen. No new disc protrusion. At L5-S1, there is diffuse disc bulging again noted. There is left-sided neural foraminal narrowing at L5-S1 due to disc bulging and facet hypertrophy, minimal narrowing on the right. These findings are unchanged from the July 18, 2018 study. IMPRESSION: Degenerative spondylosis. Stable changes. Degenerative disc disease at each lumbar level. There is left-sided L4-5 and right-sided L5-S1 neural foraminal narrowing unchanged from the July 18, 2018 prior study. <Electronically signed by Evaristo Carvalho > 05/17/20 [id number]
== END ==
LOC: M RAD 10:53
PROVIDERS: ATTEND Nurse Practitioner Family
DX: M47.897 Other spondylosis, lumbosacral region (principal); M51.26 Other intervertebral disc displacement, lumbar region

== ENCOUNTER → 2020-08-15 | Outpatient (CLI) | payer OTHER ==
[~2020-08-15] MED LIST changes: -BUPR150T3 PO; +BUPR150T4 PO; +GABA-282; +GABA-282 PO; -GABA-843; -GABA-843 PO; -LISI-538 PO; +LISI20TA33 PO; +METH-1164 PO; -METH1TAB40 PO; +MONT10TA10 PO; -MONT10TA4 PO
--- NOTE | 2020-08-17 01:09 | ECWPNPC ---
PATIENT NAME: WILLEM BALDWIN : 1965 GENDER: FEMALE VISIT DATE: 08/15/2020 DISCHARGE DATE: 08/15/20 1150 VISIT LOCKED DATE TIME: PHYSICIAN: SHANNEN PRADO PHYSICIAN PAGER NO: ACTIVE RESOURCE: SHANNEN PRADO REASON FOR APPOINTMENT 1. LOW BACK HISTORY OF PRESENT ILLNESS GENERAL: HERE FOR FOLLOW-UP OF CHRONIC LOW BACK PAIN. HISTORY OF MULTIPLE COMORBIDITIES. RECENT HOSPITAL STAY [place]. STATES SHE HAD ELEVATED AMMONIA LEVELS. HAS BEEN IN AND OUT OF THE HOSPITAL OVER THE PAST FEW YEARS. VERY DECONDITIONED. ADMITS TO DEPRESSION AND IS CURRENTLY FOLLOWING WITH PSYCHIATRY. DENIES SUICIDAL IDEATIONS. GETTING ASSISTANCE FROM [facility] .AMBULATES WITH A WHEELED WALKER WITH SEAT WITH A SLOW ANTALGIC GAIT. REVIEWED MRI OF THE LS-SPINE DONE IN MAY 2020. SHOWING MULTILEVEL DEGENERATIVE CHANGES. NO SIGNIFICANT CHANGE FROM PREVIOUS MRI. PATIENT ADMITS SHE SPENDS A LOT OF TIME IN BED. DISCUSSED TREATMENT PLAN. -. FALL RISK SCREENING: SCREENING :TWO OR MORE FALLS WITH INJURY IN THE PAST YEAR PAIN SCREENING: PATIENT HAS A COMPLAINT OF ACUTE OR CHRONIC PAIN :YES LOCATION OF PAIN:LOW BACK INTENSITY OF PAIN (SCALE OF 1 TO 10):9 WHAT DOES YOUR PAIN FEEL LIKE:ACHING, THROBBING DURATION:CONTINOUS, CONSTANT, ALL DAY PAIN IS INCREASED BY:ACTIVITIES PAIN IS DECREASED BY:OTHERS "NOTHING WORKS " NURSING NOTE: -. PAIN CENTER INTAKE QUESTIONS: DO YOU HAVE A HISTORY OF MRSA? :YES NASAL DO YOU TAKE A BLOOD THINNERS? :NO DO YOU HAVE ANY BLEEDING DISORDERS? :NO ANY NEW NUMBNESS OR WEAKNESS IN YOUR LEGS OR ARMS? :YES BILAT ARMS & FRINGERS ANY PACEMAKER,DEFIBRILLATOR, OR DORSAL COLUMN STIMULATOR? :NO DO YOU HAVE ANY RASHES OR OPEN SORES? :NO ARE YOU ALLERGIC TO IV DYE? :NO ARE YOU DIABETIC? :YES ANY NEW PROBLEMS WITH YOUR MEDICATIONS? :NO HAVE YOU RECEIVED A VACCINE IN THE PAST 30 DAYS? :NO DO YOU PLAN TO RECEIVE A VACCINE IN THE NEXT 21 DAYS? :NO DO YOU NEED ANY PRESCRIPTION? :NO DO YOU TAKE ANY IMMUNOSUPPRESSIVE MEDICATIONS? :NO CURRENT MEDICATIONS TAKING MAY HAVE - - DIRECTED DX: R53.81 DAILY TAKING MAY HAVE - - DIRECTED SHOWER CHAIR DAILY TAKING IRON 325 (65 FE) MG TABLET 1 TABLET ORALLY BID TAKING 2threadsUCH ULTRA II TEST STRIPS DIRECTED DAILY DX E 11.9 TAKING ONETOUCH ULTRASOFT LANCETS - MISCELLANEOUS DIRECTED DAILY DX E 11.9 TAKING ADMELOG 100U/ML SOLUTION 10U TID CC PLUS CORRECTIONAL DOSE PER SLIDING SCALE SUBCUTANEOUS TID CC MDD 75U TAKING ASPIR-81 81 MG TABLET DELAYED RELEASE 1 TABLET ORALLY ONCE A DAY TAKING CARVEDILOL 25 MG TABLET 1 TABLET WITH FOOD ORALLY TWICE A DAY TAKING COLACE 100 MG CAPSULE 1 CAPSULE NEEDED ORALLY BID TAKING IPRATROPIUM-ALBUTEROL 0.5-2.5 (3) MG/3ML SOLUTION 3 ML PRN INHALATION FOUR TIMES DAILY PRN SOB TAKING LACTULOSE 20 GM PACKET 40 ML ORALLY THREE TIMES DAILY NEEDED FOR 3-4 LOOSE STOOLS A DAY TAKING LOSARTAN POTASSIUM 50 MG TABLET 0.5 TABLET ORALLY ONCE A DAY TAKING MECLIZINE HCL 25 MG TABLET 1 TABLET NEEDED ORALLY THREE TIMES DAILY TAKING NYSTATIN [id number] UNIT/GM CREAM 1 APPLICATION TO AFFECTED AREA OF ABDOMEN EXTERNALLY TWICE A DAY TAKING OMEPRAZOLE 20 MG TABLET DELAYED RELEASE 1 TABLET ORALLY ONCE A DAY TAKING SPIRONOLACTONE 50 MG TABLET 1 TABLET WITH FOOD ORALLY ONCE A DAY TAKING XIFAXAN 550 MG TABLET 1 TABLET ORALLY-DR DAPHNE TWICE A DAY TAKING FLONASE 50 MCG/ACT SUSPENSION 1 SPRAY IN EACH NOSTRIL NASALLY TWICE A DAY/PRN, NOTES: PER [facility] RECORDS 1 SPRAY DAILY PRN TAKING BASAGLAR KWIKPEN 100 UNIT/ML SOLUTION PEN-INJECTOR 80U SUBCUTANEOUS BID TAKING ROPINIROLE HCL 4 MG TABLET 1 TABLET ORALLY BID TAKING HYDROXYZINE HCL 10 MG TABLET 2 TABLET NEEDED ORALLY BEFORE BEDTIME TAKING DOCUSATE SODIUM 100 MG CAPSULE 1 CAPSULE NEEDED ORALLY ONCE A DAY TAKING BUMETANIDE 2 MG TABLET DIRECTED ORALLY TAKING ONDANSETRON HCL 4 MG TABLET 1 TABLET ORALLY ONCE A DAY TAKING TOPIRAMATE 50 MG TABLET 1 TABLET ORALLY ONCE A DAY TAKING DICLOFENAC SODIUM 1 % GEL DIRECTED TRANSDERMAL TAKING DICYCLOMINE HCL 10 MG/ML SOLUTION 1 ML INTRAMUSCULAR FOUR TIMES A DAY TAKING POTASSIUM BICARB-CITRIC ACID 10 MEQ TABLET EFFERVESCENT 1 TABLET DISSOLVE IN 3 TO 4 OUNCES COLD WATER OR JUICE ORALLY TWICE A DAY TAKING GABAPENTIN 300 MG CAPSULE 1 CAPSULE ORALLY ONCE A DAY TAKING ZOLOFT 100 MG TABLET 1 1/2 TABLET ORALLY ONCE A DAY, NOTES: 75 MG NOT-TAKING QVAR REDIHALER 40 MCG/ACT AEROSOL BREATH ACTIVATED 1 PUFF INHALATION ONCE A DAY NOT-TAKING BENTYL 10 MG CAPSULE 1 CAPSULE PRN ORALLY FOUR TIMES A DAY NOT-TAKING BUMEX 2 MG TABLET 1 TAB ORALLY BID NOT-TAKING POTASSIUM CHLORIDE 10 MEQ CAPSULE EXTENDED RELEASE 1 CAPSULE WITH FOOD ORALLY ONCE A DAY NOT-TAKING PROAIR HFA 108 (90 BASE) MCG/ACT AEROSOL SOLUTION 2 PUFFS NEEDED INHALATION EVERY 4 HRS NOT-TAKING TOPAMAX 50 MG TABLET 1 TABLET ORALLY BEFORE BEDTIME NOT-TAKING VITAMIN D3 2000 UNIT CAPSULE 1 CAPSULE ORALLY ONCE A DAY NOT-TAKING VOLTAREN 1 % GEL 4 GRAMS TO LEFT FOREARM TRANSDERMAL FOUR TIMES DAILY PRN TO LEFT KNEE AND LEFT WRIST NOT-TAKING ZOFRAN ODT 4 MG TABLET DISPERSIBLE 1 TABLET PRN NAUSEA ORALLY Q 4 HRS PRN NAUSEA NOT-TAKING TRIAMCINOLONE ACETONIDE 0.1 % OINTMENT 1 APPLICATION TO AFFECTED AREA OF HANDS EXTERNALLY TWICE A DAY NOT-TAKING ADMELOG SOLOSTAR NOT-TAKING CYCLOBENZAPRINE HCL 10 MG TABLET 1 TABLET NEEDED ORALLY THREE TIMES A DAY NOT-TAKING OXYCODONE HCL 5 MG TABLET 1 TABLET NEEDED ORALLY EVERY 6 HRS NOT-TAKING LORATADINE 10 MG TABLET 1 TABLET ORALLY ONCE A DAY NOT-TAKING SERTRALINE HCL 50 MG TABLET 1 TABLET ORALLY ONCE A DAY, NOTES: 75 MG DAILY NOT-TAKING BUPROPION HCL ER (XL) 300 MG TABLET EXTENDED RELEASE 24 HOUR 1 TABLET IN THE MORNING ORALLY ONCE A DAY MEDICATION LIST REVIEWED AND RECONCILED WITH THE PATIENT PAST MEDICAL HISTORY DIABETES MELLITUS TYPE 2 WITHOUT COMPLICATION, GOAL A1C 7% HYPERTENSION, GOAL 140/90 DEPRESSION KIDNEY STONES ARTHRITIS (NECK/BACK) RESTLESS LEGS GASTROESOPHAGEAL REFLUX DISEASE WITHOUT ESOPHAGITIS CHAMPAGNE CIRRHOSIS WITH SPLENOMEGALY PULMONARY HYPERTENSION ALLERGIES AVANDIA: RASH - ALLERGY GLUCOPHAGE: RASH - ALLERGY PYRIDIUM: BLEEDING - ALLERGY DILTIAZEM HCL: SWELLING - SIDE EFFECTS LISINOPRIL: COUGH - SIDE EFFECTS CLINDAMYCIN HCL: PRURITIS - SIDE EFFECTS FAMILY HISTORY FATHER: , DIAGNOSED WITH HYPERTENSION, DIABETES MOTHER: , HYPERTENSION, UNSPECIFIED HEART DISEASE SIBLINGS: UNSPECIFIED HEART DISEASE, OTHER MALIGNANT NEOPLASM OF UNSPECIFIED SITE 2 BROTHER(S) , 5 SISTER(S) . 3 SON(S) - HEALTHY. SISTER - OF PANCREATIC CANCER\\\\NBROTHER WITH H\\\\\\/O CVD. SOCIAL HISTORY GENERAL: TOBACCO USE ARE YOU A:CURRENT SMOKER TRYING TO QUIT ARE YOU INTERESTED IN QUITTING?THINKING ABOUT QUITTING COUNSELED THE PATIENT ON SMOKING CESSATION, EDUCATION [id number]/10/2021 HOW MANY CIGARETTES A DAY DO YOU SMOKE?5 OR LESS HOW OFTEN DO YOU SMOKE CIGARETTES?SOME DAYS, BUT NOT EVERY DAY PATIENT COUNSELED ON THE DANGERS OF TOBACCO USE AND URGED TO QUIT:08/15/2020 SMOKING CESSATION INFORMATION GIVEN08/15/2020 LATEX QUESTIONNAIRE LATEX ALLERGY : HAVE YOU EVER DEVELOPED ANY TYPE OF REACTION AFTER HANDLING LATEX PRODUCTS SUCH RUBBER GLOVES, CONDOMS, DIAPHRAGMS, BALLOONS, SOCKS, OR UNDERWEAR?NO LATEX ALLERGY : HAVE YOU EVER DEVELOPED ANY TYPE OF REACTION DURING OR AFTER DENTAL APPOINTMENT, VAGINAL/RECTAL EXAMINATION, SURGICAL PROCEDURE, OR ANY OTHER EXPOSURE?NO LATEX RISK : HAVE YOU EVER HAD ANY DIFFICULTY BREATHING OR HIVES AFTER EATING OR HANDLING ANY FRUITS, OR VEGETABLES; SUCH KIWI, BANANAS, STONE FRUITS, OR CHESTNUTSNO LATEX RISK : DO YOU HAVE A PREVIOUS PERSONAL HISTORY OF MORE THAN NINE SURGERIES, SPINA BIFIDA, OR REPEATED CATHERIZATIONS? NO LATEX RISK : ARE YOU FREQUENTLY EXPOSED TO LATEX PRODUCTS IN YOUR OCCUPATION?NO DATE ASKED : 08/15/2020 ALCOHOL USE: NO. BMI CARE GOAL FOLLOW-UP ABOVE NORMAL BMI FOLLOW-UPDIETARY MANAGEMENT EDUCATION, GUIDANCE, AND COUNSELING ALCOHOL SCREENING DID YOU HAVE A DRINK CONTAINING ALCOHOL IN THE PAST YEAR?NO POINTS0 INTERPRETATIONNEGATIVE RECREATIONAL DRUG USE DRUG USE?YES HOW OFTEN AND HOW MUCH? MARIJUANA COUPLE WEEKS AGO CAFFEINE CAFFEINE USE?YES HOW OFTEN AND HOW MUCH? OCC SEXUAL HX HAD SEX IN THE LAST 12 MONTHS (VAGINAL, ORAL, OR ANAL)?NO HAVE YOU EVER HAD AN STD?NO HIV / HEP-C SCREENING HIV TEST OFFERED TO PATIENT:YES DATE OFFERED:06/02/2018 TEST ACCEPTED:YES HEP-C TEST OFFERED TO PATIENT:YES DATE OFFERED:06/02/2018 TEST ACCEPTED:YES BROCHURE PROVIDED TO PATIENTYES NONDENOMINATIONAL [id number] NONE LANGUAGE LANGUAGES SPOKEN:[place] EDUCATION LEVEL OF EDUCATION:HIGH SCHOOL LEARNING BARRIERS / SPECIAL NEEDS CHANGE FROM LAST VISIT?NO BARRIERS TO LEARNING?NO HEARING IMPAIRED?NO VISION IMPAIRED?YES : CORRECTIVE LENSES COGNITIVELY IMPAIRED?NO READINESS TO LEARN?YES LEARNING PREFERENCES?NO LEARNING CAPABILITIES PRESENT?YES EMOTIONAL BARRIERS?NO SPECIAL DEVICES?YES :CANE, WALKER MANAGER OF HUMAN RESOURCES NEEDED?NO DOMESTIC VIOLENCE DO YOU FEEL SAFE IN YOUR ENVIRONMENT?YES OCCUPATION: UNEMPLOYED. DIET: REGULAR. EXERCISE: NO REGULAR EXERCISE. MARITAL STATUS: .. OTHERS AT HOME: CHILD, IN-LAW(S). FROM 0-10, WHAT LEVEL IS YOUR PAIN TODAY? 8. - PFS REFERRAL NEEDED?NO CLERGY REFERRAL NEEDED?NO PUBLIC HEALTH REFERRAL NEEDED?NO HAS THE PATIENT BEEN EDUCATED REGARDING HIS/HER PLAN OF CARE?YES HAS THE PATIENT BEEN EDUCATED REGARDING PAIN, THE RISK FOR PAIN, THE IMPORTANCE OF EFFECTIVE PAIN MANAGEMENT, AND THE PAIN ASSESSMENT PROCESS?YES ADVANCE DIRECTIVE ADVANCE DIRECTIVE DISCUSSED WITH PATIENT:YES LELA BALDWIN SON [phone] PACK YRS. REVIEW OF SYSTEMS CONSTITUTIONAL: ANY RECENT FEVER NO . CHILLS NO . WEIGHT CHANGE OF UNKNOWN REASONS NO . GASTROENTEROLOGY: NEW UNEXPLAINABLE CHANGES IN BOWEL CONTROL NO . CONSTIPATION NO . GENITOURINARY: ANY NEW CHANGE IN BLADDER CONTROL? NO . NEUROLOGY: NEW ONSET DIZZINESS OR NEUROLOGICAL CHANGES NOT MENTIONED NO . NEW NUMBNESS OR PAIN PATTERNS NOT MENTIONED AND PERTINENT TO TODAY'S VISIT NO . CARDIOLOGY: NEW CHEST PRESSURE NO . NEW CHEST PAIN NO . RESPIRATORY: UNEXPLAINABLE COUGH NO . NEW SHORTNESS OF BREATH NO . VITAL SIGNS WT 353 LBS, HT 72 IN, BMI 47.87 INDEX, BP 183/77 MM HG, HR 77 /MIN, RR 18 /MIN, TEMP 97 F, OXYGEN SAT % 96%, SAFE IN ENV? (Y/N) YEST.CLEMENT DE [place]. EXAMINATION GENERAL EXAMINATION: GENERAL ALERT,NO DISTRESS . PSYCH AFFECT NORMAL . LUNGS: LUNG SOUNDS ARE CLEAR . HEART: HEART RATE REGULAR . MUSCULOSKELETAL:WEAKNESS NOTED BILAT. LOWER EXTREMITIES . LUMBAR: TENDERNESS BILAT. SIJ . DIAGNOSTIC TESTS REVIEWEDMRI L/S SPINE 05/2020. ASSESSMENTS SACROILIAC PAIN - M53.3 (PRIMARY) TREATMENT SACROILIAC PAIN NOTES: BILATERAL SACROILLIAC JOINT BLOCK PRINTED AND REVIEW PRE PROCEDURE WITH PATIENT SIVA DE LUNA. PROCEDURE CODES FA211 ESTABILISHED PATIENT [facility] CHARGE DISPOSITION & COMMUNICATION FOLLOW UP POST PROC (REASON: BILATERAL SACROILLIAC JOINT BLOCK) ELECTRONICALLY SIGNED BY VERO SIDDIQUI ON 08/16/2020 AT 09:57 PM EST DISCLAIMER : THIS IS A VISIT SUMMARY EXTRACTED FROM THE [employer] CHART. IT IS NOT A COPY OF THE [employer] PROGRESS NOTE. SETH
== END ==
LOC: M PAIN 10:30
PROVIDERS: ATTEND Nurse Practitioner Family
DX: M53.3 Sacrococcygeal disorders, not elsewhere classified (principal); G89.29 Other chronic pain; E11.9 Type 2 diabetes mellitus without complications; G25.81 Restless legs syndrome; K21.9 Gastro-esophageal reflux disease without esophagitis; F17.210 Nicotine dependence, cigarettes, uncomplicated; Z86.14 Personal history of Methicillin resistant Staphylococcus aureus infection; Z86.59 Personal history of other mental and behavioral disorders; Z88.1 Allergy status to other antibiotic agents; Z88.8 Allergy status to other drugs, medicaments and biological substances; E66.01 Morbid (severe) obesity due to excess calories; Z68.42 Body mass index [BMI] 45.0-49.9, adult; Z79.4 Long term (current) use of insulin; Z79.82 Long term (current) use of aspirin; Z79.899 Other long term (current) drug therapy

== ENCOUNTER → 2020-08-23 | Outpatient (CLI) | payer OTHER | LOC: M LABSMTC 10:37 | PROVIDERS: ATTEND Anesthesiology | DX: Z20.822 Contact with and (suspected) exposure to COVID-19 (principal) ==

== ENCOUNTER → 2020-12-12 | Outpatient (CLI) | payer OTHER ==
[~2020-12-12] MED LIST changes: +ASPI-569 PO; -ASPI81TAEC PO; +BUPR150T12 PO; -BUPR150T4 PO; +GABA-283 PO; -GABA-845 PO
--- NOTE | 2020-12-18 00:10 | ECWPNPC ---
PATIENT NAME: WILLEM BALDWIN : 1965 GENDER: FEMALE VISIT DATE: 12/12/2020 DISCHARGE DATE: 12/12/20 1159 VISIT LOCKED DATE TIME: PHYSICIAN: SHANNEN PRADO PHYSICIAN PAGER NO: ACTIVE RESOURCE: SHANNEN PRADO REASON FOR APPOINTMENT 1. LOW BACK PAIN HISTORY OF PRESENT ILLNESS GENERAL: HERE FOR FOLLOW-UP OF CHRONIC LOW BACK PAIN. CONTINUES TO HAVE A LOT OF MEDICAL ISSUES. STATES SHE HAD AN EPISODE WHERE SHE PASSED OUT AND HAD TO BE SEEN AT THE EMERGENCY ROOM. HISTORY OF MULTIPLE COMORBIDITIES. CHIEF AREA OF PAIN IS LOW BACK. CONTINUES TO USE WHEELCHAIR OR WALKER FOR ANY DISTANCE WALKING. VERY DECONDITIONED. HE BE A FREQUENT INTERVALE DURING OUR CONVERSATION. IS NOW GETTING HELP IN THE HOME. DISCUSSED TREATMENT OPTIONS. -. FALL RISK SCREENING: SCREENING ONE FALL THIS YEAR AND FRACTURE L5, STAYED OVER NIGHT IN THE ER . PAIN SCREENING: PATIENT HAS A COMPLAINT OF ACUTE OR CHRONIC PAIN :YES LOCATION OF PAIN:LOW BACK INTENSITY OF PAIN (SCALE OF 1 TO 10):8 WHAT DOES YOUR PAIN FEEL LIKE:THROBBING, SHOOTING DURATION:CONTINOUS, CONSTANT, ALL DAY PAIN IS INCREASED BY:ACTIVITIES, PROLONGED STANDING PAIN IS DECREASED BY:OTHERS HEAT/ICE NURSING NOTE: -. PAIN CENTER INTAKE QUESTIONS: DO YOU HAVE A HISTORY OF MRSA? :YES NASAL DO YOU TAKE A BLOOD THINNERS? :NO DO YOU HAVE ANY BLEEDING DISORDERS? :NO ASPIR-81 81 MG ANY NEW NUMBNESS OR WEAKNESS IN YOUR LEGS OR ARMS? :YES BILAT ARMS & FRINGERS ANY PACEMAKER,DEFIBRILLATOR, OR DORSAL COLUMN STIMULATOR? :NO DO YOU HAVE ANY RASHES OR OPEN SORES? :NO ARE YOU ALLERGIC TO IV DYE? :NO ARE YOU DIABETIC? :YES ANY NEW PROBLEMS WITH YOUR MEDICATIONS? :NO HAVE YOU RECEIVED A VACCINE IN THE PAST 30 DAYS? :NO DO YOU PLAN TO RECEIVE A VACCINE IN THE NEXT 21 DAYS? :NO DO YOU NEED ANY PRESCRIPTION? :NO DO YOU TAKE ANY IMMUNOSUPPRESSIVE MEDICATIONS? :NO CURRENT MEDICATIONS TAKING MAY HAVE - - DIRECTED DX: R53.81 DAILY TAKING MAY HAVE - - DIRECTED SHOWER CHAIR DAILY TAKING IRON 325 (65 FE) MG TABLET 1 TABLET ORALLY BID TAKING ONETOUCH ULTRA II TEST STRIPS DIRECTED DAILY DX E 11.9 TAKING ONETOUCH ULTRASOFT LANCETS - MISCELLANEOUS DIRECTED DAILY DX E 11.9 TAKING ADMELOG 100U/ML SOLUTION 10U TID CC PLUS CORRECTIONAL DOSE PER SLIDING SCALE SUBCUTANEOUS TID CC MDD 75U TAKING ASPIR-81 81 MG TABLET DELAYED RELEASE 1 TABLET ORALLY ONCE A DAY TAKING CARVEDILOL 25 MG TABLET 1 TABLET WITH FOOD ORALLY TWICE A DAY TAKING COLACE 100 MG CAPSULE 1 CAPSULE NEEDED ORALLY BID TAKING IPRATROPIUM-ALBUTEROL 0.5-2.5 (3) MG/3ML SOLUTION 3 ML PRN INHALATION FOUR TIMES DAILY PRN SOB TAKING LACTULOSE 20 GM PACKET 30ML ORALLY THREE TIMES DAILY NEEDED FOR 3-4 LOOSE STOOLS A DAY TAKING LOSARTAN POTASSIUM 50 MG TABLET 0.5 TABLET ORALLY ONCE A DAY TAKING MECLIZINE HCL 25 MG TABLET 1 TABLET NEEDED ORALLY THREE TIMES DAILY TAKING NYSTATIN [id number] UNIT/GM CREAM 1 APPLICATION TO AFFECTED AREA OF ABDOMEN EXTERNALLY TWICE A DAY TAKING OMEPRAZOLE 20 MG TABLET DELAYED RELEASE 1 TABLET ORALLY ONCE A DAY TAKING SPIRONOLACTONE 50 MG TABLET 1 TABLET WITH FOOD ORALLY ONCE A DAY TAKING XIFAXAN 550 MG TABLET 1 TABLET ORALLY-DR DAPHNE TWICE A DAY TAKING FLONASE 50 MCG/ACT SUSPENSION 1 SPRAY IN EACH NOSTRIL NASALLY TWICE A DAY/PRN, NOTES: PER [facility] RECORDS 1 SPRAY DAILY PRN TAKING BASAGLAR KWIKPEN 100 UNIT/ML SOLUTION PEN-INJECTOR 80U SUBCUTANEOUS BID TAKING ROPINIROLE HCL 4 MG TABLET 1 TABLET ORALLY BID TAKING HYDROXYZINE HCL 10 MG TABLET 2 TABLET NEEDED ORALLY BEFORE BEDTIME TAKING DOCUSATE SODIUM 100 MG CAPSULE 1 CAPSULE NEEDED ORALLY ONCE A DAY TAKING BUMETANIDE 2 MG TABLET DIRECTED ORALLY TAKING ONDANSETRON HCL 4 MG TABLET 1 TABLET ORALLY ONCE A DAY TAKING TOPIRAMATE 50 MG TABLET 1 TABLET ORALLY ONCE A DAY TAKING DICLOFENAC SODIUM 1 % GEL DIRECTED TRANSDERMAL TAKING DICYCLOMINE HCL 10 MG/ML SOLUTION 1 ML INTRAMUSCULAR FOUR TIMES A DAY TAKING POTASSIUM BICARB-CITRIC ACID 10 MEQ TABLET EFFERVESCENT 1 TABLET DISSOLVE IN 3 TO 4 OUNCES COLD WATER OR JUICE ORALLY TWICE A DAY TAKING GABAPENTIN 300 MG CAPSULE 1 CAPSULE ORALLY ONCE A DAY TAKING ZOLOFT 100 MG TABLET 1 1/2 TABLET ORALLY ONCE A DAY TAKING OXYCODONE HCL 10 MG TABLET 1 TABLET NEEDED ORALLY EVERY 6 HRS TAKING LEXAPRO 10 MG TABLET 1 TABLET ORALLY ONCE A DAY TAKING LIDOCAINE HCL 4 % PATCH 2% DIRECTED EXTERNALLY TAKING ADMELOG SOLOSTAR 100 UNIT/ML SOLUTION PEN-INJECTOR DIRECTED SUBCUTANEOUS 6 UNITS THREE TIMES A DAY, NOTES: DIABETES NOT-TAKING QVAR REDIHALER 40 MCG/ACT AEROSOL BREATH ACTIVATED 1 PUFF INHALATION ONCE A DAY NOT-TAKING BENTYL 10 MG CAPSULE 1 CAPSULE PRN ORALLY FOUR TIMES A DAY NOT-TAKING BUMEX 2 MG TABLET 1 TAB ORALLY BID NOT-TAKING POTASSIUM CHLORIDE 10 MEQ CAPSULE EXTENDED RELEASE 1 CAPSULE WITH FOOD ORALLY ONCE A DAY NOT-TAKING PROAIR HFA 108 (90 BASE) MCG/ACT AEROSOL SOLUTION 2 PUFFS NEEDED INHALATION EVERY 4 HRS NOT-TAKING TOPAMAX 50 MG TABLET 1 TABLET ORALLY BEFORE BEDTIME NOT-TAKING VITAMIN D3 2000 UNIT CAPSULE 1 CAPSULE ORALLY ONCE A DAY NOT-TAKING VOLTAREN 1 % GEL 4 GRAMS TO LEFT FOREARM TRANSDERMAL FOUR TIMES DAILY PRN TO LEFT KNEE AND LEFT WRIST NOT-TAKING ZOFRAN ODT 4 MG TABLET DISPERSIBLE 1 TABLET PRN NAUSEA ORALLY Q 4 HRS PRN NAUSEA NOT-TAKING TRIAMCINOLONE ACETONIDE 0.1 % OINTMENT 1 APPLICATION TO AFFECTED AREA OF HANDS EXTERNALLY TWICE A DAY NOT-TAKING ADMELOG SOLOSTAR NOT-TAKING CYCLOBENZAPRINE HCL 10 MG TABLET 1 TABLET NEEDED ORALLY THREE TIMES A DAY NOT-TAKING OXYCODONE HCL 5 MG TABLET 1 TABLET NEEDED ORALLY EVERY 6 HRS NOT-TAKING LORATADINE 10 MG TABLET 1 TABLET ORALLY ONCE A DAY NOT-TAKING SERTRALINE HCL 50 MG TABLET 1 TABLET ORALLY ONCE A DAY, NOTES: 75 MG DAILY NOT-TAKING BUPROPION HCL ER (XL) 300 MG TABLET EXTENDED RELEASE 24 HOUR 1 TABLET IN THE MORNING ORALLY ONCE A DAY MEDICATION LIST REVIEWED AND RECONCILED WITH THE PATIENT PAST MEDICAL HISTORY DIABETES MELLITUS TYPE 2 WITHOUT COMPLICATION, GOAL A1C 7% HYPERTENSION, GOAL 140/90 DEPRESSION KIDNEY STONES ARTHRITIS (NECK/BACK) RESTLESS LEGS GASTROESOPHAGEAL REFLUX DISEASE WITHOUT ESOPHAGITIS CHAMPAGNE CIRRHOSIS WITH SPLENOMEGALY PULMONARY HYPERTENSION ONE FALL THIS YEAR AND FRACTURE L5, STAYED OVER NIGHT IN THE ER ALLERGIES AVANDIA: RASH - ALLERGY GLUCOPHAGE: RASH - ALLERGY PYRIDIUM: BLEEDING - ALLERGY DILTIAZEM HCL: SWELLING - SIDE EFFECTS LISINOPRIL: COUGH - SIDE EFFECTS CLINDAMYCIN HCL: PRURITIS - SIDE EFFECTS SURGICAL HISTORY C SECTION 1988 GALL BLADDER 1988 BREAST LUMP REMOVED, RIGHT 1994 ENDOMETRIAL ABLATION 1998 MASS REMOVED FROM LEFT LEG 2010 LEFT SHOULDER ROTATOR CUFF 2012 LEFT BREAST CYST REMOVAL 2011 SINUS/ DEVIATED SEPTUM 2013 ACHELIES TENDON--RIGHT 2014 BRONCHOSCOPY 2004, 2006 COLONOSCOPY/ ENDOSCOPY HEART CATHERIZATION 05/2015 D&C & BX OF UTERINE LINING 11/2016 HEART CATH, LIVER BIOPSY 04/2017 FRACTURE L5 2020 SOCIAL HISTORY GENERAL: TOBACCO USE ARE YOU A:CURRENT SMOKER TRYING TO QUIT ARE YOU INTERESTED IN QUITTING?THINKING ABOUT QUITTING COUNSELED THE PATIENT ON SMOKING CESSATION, EDUCATION [id number]/09/2021 HOW MANY CIGARETTES A DAY DO YOU SMOKE?5 OR LESS HOW OFTEN DO YOU SMOKE CIGARETTES?SOME DAYS, BUT NOT EVERY DAY PATIENT COUNSELED ON THE DANGERS OF TOBACCO USE AND URGED TO QUIT:12/12/2020 SMOKING CESSATION INFORMATION GIVEN08/15/2020 LATEX QUESTIONNAIRE LATEX ALLERGY : HAVE YOU EVER DEVELOPED ANY TYPE OF REACTION AFTER HANDLING LATEX PRODUCTS SUCH RUBBER GLOVES, CONDOMS, DIAPHRAGMS, BALLOONS, SOCKS, OR UNDERWEAR?NO LATEX ALLERGY : HAVE YOU EVER DEVELOPED ANY TYPE OF REACTION DURING OR AFTER DENTAL APPOINTMENT, VAGINAL/RECTAL EXAMINATION, SURGICAL PROCEDURE, OR ANY OTHER EXPOSURE?NO LATEX RISK : HAVE YOU EVER HAD ANY DIFFICULTY BREATHING OR HIVES AFTER EATING OR HANDLING ANY FRUITS, OR VEGETABLES; SUCH KIWI, BANANAS, STONE FRUITS, OR CHESTNUTSYES - PLEASE INDICATE : BANANAS LATEX RISK : DO YOU HAVE A PREVIOUS PERSONAL HISTORY OF MORE THAN NINE SURGERIES, SPINA BIFIDA, OR REPEATED CATHERIZATIONS? NO LATEX RISK : ARE YOU FREQUENTLY EXPOSED TO LATEX PRODUCTS IN YOUR OCCUPATION?NO DATE ASKED : 12/12/2020 ALCOHOL USE: NO. BMI CARE GOAL FOLLOW-UP ABOVE NORMAL BMI FOLLOW-UPDIETARY MANAGEMENT EDUCATION, GUIDANCE, AND COUNSELING ALCOHOL SCREENING DID YOU HAVE A DRINK CONTAINING ALCOHOL IN THE PAST YEAR?NO POINTS0 INTERPRETATIONNEGATIVE RECREATIONAL DRUG USE DRUG USE?YES HOW OFTEN AND HOW MUCH? MARIJUANA COUPLE WEEKS AGO CAFFEINE CAFFEINE USE?YES HOW OFTEN AND HOW MUCH? OCC SEXUAL HX HAD SEX IN THE LAST 12 MONTHS (VAGINAL, ORAL, OR ANAL)?NO HAVE YOU EVER HAD AN STD?NO HIV / HEP-C SCREENING HIV TEST OFFERED TO PATIENT:YES DATE OFFERED:06/02/2018 TEST ACCEPTED:YES HEP-C TEST OFFERED TO PATIENT:YES DATE OFFERED:06/02/2018 TEST ACCEPTED:YES BROCHURE PROVIDED TO PATIENTYES ZOROASTRIANISM [id number] NONE LANGUAGE LANGUAGES SPOKEN:ECUADOREAN EDUCATION LEVEL OF EDUCATION:HIGH SCHOOL LEARNING BARRIERS / SPECIAL NEEDS CHANGE FROM LAST VISIT?NO BARRIERS TO LEARNING?NO HEARING IMPAIRED?YES : VERY LITTLE VISION IMPAIRED?YES : CORRECTIVE LENSES COGNITIVELY IMPAIRED?NO READINESS TO LEARN?YES LEARNING PREFERENCES?NO LEARNING CAPABILITIES PRESENT?YES EMOTIONAL BARRIERS?NO SPECIAL DEVICES?YES :CANE, WALKER FOREMAN/PILE DRIVING AND ERECTION NEEDED?NO DOMESTIC VIOLENCE DO YOU FEEL SAFE IN YOUR ENVIRONMENT?YES OCCUPATION: UNEMPLOYED. DIET: REGULAR. EXERCISE: NO REGULAR EXERCISE. MARITAL STATUS: .. OTHERS AT HOME: CHILD, IN-LAW(S). FROM 0-10, WHAT LEVEL IS YOUR PAIN TODAY? 8. - PFS REFERRAL NEEDED?NO CLERGY REFERRAL NEEDED?NO PUBLIC HEALTH REFERRAL NEEDED?NO HAS THE PATIENT BEEN EDUCATED REGARDING HIS/HER PLAN OF CARE?YES HAS THE PATIENT BEEN EDUCATED REGARDING PAIN, THE RISK FOR PAIN, THE IMPORTANCE OF EFFECTIVE PAIN MANAGEMENT, AND THE PAIN ASSESSMENT PROCESS?YES ADVANCE DIRECTIVE ADVANCE DIRECTIVE DISCUSSED WITH PATIENT:YES LELA BALDWIN SON [phone] PACK YRS. HOSPITALIZATION/MAJOR DIAGNOSTIC PROCEDURE SURGICALY RELATED MILD RENAL FAILURE [facility]--HEART CATH 05/2015 ELEVATED AMMONIA LEVELS 12/2016 [facility] INCREASED AMMONIA LEVEL 02/2017 [facility] 04/2017 [facility] - ELEVATED GLUCOSE 07/2017 [facility] - 10/2017 [facility] - ULCERATIVE COLITIS 02/20/18 [facility] - COLITIS 06/2018 [facility] - CELLULITIS 09/2018 [facility] - CELLULITIS 09/3018 [facility] - 10/2018 FRACTURE L5- FROM FALL 2020 REVIEW OF SYSTEMS CONSTITUTIONAL: ANY RECENT FEVER NO . CHILLS NO . WEIGHT CHANGE OF UNKNOWN REASONS NO . GASTROENTEROLOGY: NEW UNEXPLAINABLE CHANGES IN BOWEL CONTROL NO . CONSTIPATION NO . GENITOURINARY: ANY NEW CHANGE IN BLADDER CONTROL? NO . NEUROLOGY: NEW ONSET DIZZINESS OR NEUROLOGICAL CHANGES NOT MENTIONED NO . NEW NUMBNESS OR PAIN PATTERNS NOT MENTIONED AND PERTINENT TO TODAY'S VISIT NO . CARDIOLOGY: NEW CHEST PRESSURE NO . PATIENT DENIES NO . RESPIRATORY: UNEXPLAINABLE COUGH NO . NEW SHORTNESS OF BREATH NO . VITAL SIGNS WT 332.0 LBS, HT 72 IN, BMI 45.02 INDEX, BP 180/79 MM HG, HR 81 /MIN, RR 18 /MIN, TEMP 96.1 F, OXYGEN SAT % 95%, SAFE IN ENV? (Y/N) YES, NA INITIALS AW [id number].[place]. EXAMINATION GENERAL EXAMINATION: GENERAL AWAKE,ALERT ,PLEAASANT . PSYCHWEEPY,DEPRESSED. LUNGS: LUNG DERAS ARE CLEAR TO AUSCULTATION BILATERALLY. GOOD MOVEMENT OF AIR . HEART: S1, S2 IN A REGULAR RATE AND RHYTHM. NO SIGNIFICANT MURMURS, RUBS OR GALLOPS NOTED . MUSCULOSKELETAL: MUSCLE STRENGTH TESTING 4/5 BILATERAL LOWER EXTREMITIES. LUMBAR: TRIGGER POINTS:, ELICITED WITH PALPATION OVER LUMBAR PARAVERTEBRAL MUSCLES WITH INCREASE IN PAIN WITH ROJM OF SPINE. ASSESSMENTS MYALGIA, OTHER SITE - M79.18 (PRIMARY) TREATMENT MYALGIA, OTHER SITE NOTES: TRIGGER POINT INJECTION BILATERAL LOW BACK PRINTED AND REVIEWED PRE PROCEDURE INFORMATION, PATIENT VERBALIZED UNDERSTANDING SIVA DE LUNA. PROCEDURE CODES FA211 ESTABILISHED PATIENT [facility] FACILITY CHARGE DISPOSITION & COMMUNICATION FOLLOW UP POST PROCEDURE (REASON: TRIGGER POINT INJECTION BILATERAL LOW BACK) ELECTRONICALLY SIGNED BY VERO SIDDIQUI ON 12/17/2020 AT 08:52 AM EDT DISCLAIMER : THIS IS A VISIT SUMMARY EXTRACTED FROM THE [employer] CHART. IT IS NOT A COPY OF THE [employer] PROGRESS NOTE. SETH
== END ==
LOC: M PAIN 11:00
PROVIDERS: ATTEND Nurse Practitioner Family
DX: M79.18 Myalgia, other site (principal); E11.9 Type 2 diabetes mellitus without complications; I10 Essential (primary) hypertension; F32.9 Major depressive disorder, single episode, unspecified; G25.81 Restless legs syndrome; K21.9 Gastro-esophageal reflux disease without esophagitis; K74.60 Unspecified cirrhosis of liver; K75.81 Nonalcoholic steatohepatitis (NASH); I27.20 Pulmonary hypertension, unspecified; F17.210 Nicotine dependence, cigarettes, uncomplicated; Z79.82 Long term (current) use of aspirin; Z79.899 Other long term (current) drug therapy; Z79.4 Long term (current) use of insulin; Z88.1 Allergy status to other antibiotic agents; Z88.8 Allergy status to other drugs, medicaments and biological substances

== ENCOUNTER → 2021-01-25 | Outpatient (CLI) | payer OTHER ==
[~2021-01-25] MED LIST changes: -DOXY100C37 PO; +DOXY1CAP62 PO
== END ==
LOC: M LABSMTC 09:33
PROVIDERS: ATTEND Anesthesiology
DX: Z20.822 Contact with and (suspected) exposure to COVID-19 (principal)

== ENCOUNTER → 2021-01-30 | Outpatient (CLI) | payer OTHER ==
[~2021-01-30] MED LIST changes: +BUPIVACAINE HCL 0.25% 10ML VIAL As Ordered ONE; +BUPIVACAINE HCL 0.25% 30ML VIAL As Ordered ONE; +NORCO, ANEXSIA 5/325MG TABLET (HYDROcodone/ACETAMINOPHEN) As Ordered ONE; +TRIAMCINOLONE ACETONIDE SUSP 40 MG/ML VIAL (J3301) As Ordered ONE; +diazePAM 2 MG TAB As Ordered ONE
--- NOTE | 2021-02-01 01:32 | ECWPNPC ---
PATIENT NAME: WILLEM BALDWIN : 1965 GENDER: FEMALE VISIT DATE: 01/30/2021 DISCHARGE DATE: 01/30/21 1022 VISIT LOCKED DATE TIME: PHYSICIAN: ALEJANDRO MASSEY MD RESOURCE: ALEJANDRO MASSEY MD REASON FOR APPOINTMENT 1. TRIGGER POINT INJECTION BILATERAL LOW BACK HISTORY OF PRESENT ILLNESS GENERAL: -. FALL RISK SCREENING: SCREENING : MULTIPLE FALLS REPORTED IN THE LAST YEAR - 1 FALL A MONTH OR TWO AGO, WAS GIVEN TOO MUCH ADDERALL AND LOST HER BALANCE. HIT HER HEAD, WENT TO ER, NO CONCUSSION. WAS ADMMITTED FOR 9 DAYS - FRACTURED L5 IN BACK.. PAIN SCREENING: PATIENT HAS A COMPLAINT OF ACUTE OR CHRONIC PAIN :YES LOCATION OF PAIN:LOW BACK INTENSITY OF PAIN (SCALE OF 1 TO 10):8 WHAT DOES YOUR PAIN FEEL LIKE:ACHING, STABBING DURATION:INTERMITTENT PAIN IS INCREASED BY:ACTIVITIES, PROLONGED STANDING, OTHERS WALKING PAIN IS DECREASED BY:OTHERS REST NURSING NOTE: -. PAIN CENTER INTAKE QUESTIONS: DO YOU HAVE A HISTORY OF MRSA? :NO DO YOU TAKE A BLOOD THINNERS? :NO DO YOU HAVE ANY BLEEDING DISORDERS? :NO ANY NEW NUMBNESS OR WEAKNESS IN YOUR LEGS OR ARMS? :NO ANY PACEMAKER,DEFIBRILLATOR, OR DORSAL COLUMN STIMULATOR? :NO DO YOU HAVE ANY RASHES OR OPEN SORES? :NO ARE YOU ALLERGIC TO IV DYE? :NO ARE YOU DIABETIC? :YES FSBS: 284 @ 0600 ANY NEW PROBLEMS WITH YOUR MEDICATIONS? :NO HAVE YOU RECEIVED A VACCINE IN THE PAST 30 DAYS? :NO DO YOU PLAN TO RECEIVE A VACCINE IN THE NEXT 21 DAYS? :NO DO YOU TAKE ANY IMMUNOSUPPRESSIVE MEDICATIONS? :NO ANY HISTORY OF SEIZURES? :NO ANY HISTORY OF CARDIAC ISSUES OR EVENTS? :YES HEART CATH X2 DO YOU HAVE ANY KIDNEY OR LIVER DISEASE? :YES LIVER DISEASE DO YOU HAVE SLEEP APNEA? :NO ANY RECENT HEAD INJURY? :NO DO YOU HAVE ANY NEW INFECTIONS? :NO IS THERE A CHANCE YOU COULD BE ? :NO ARE YOU BREAST FEEDING? :NO WHEN DID YOU LAST EAT? : 01/29 2300 WHEN DID YOU LAST DRINK? : 01/30 WHAT DID YOU LAST DRINK? : WATER NAME OF PERSON DRIVING YOU HOME? : MEDICAID TRANSPORT DO YOU HAVE ANY OTHER QUESTIONS OR CONCERNS? : - CURRENT MEDICATIONS TAKING MAY HAVE - - DIRECTED DX: R53.81 DAILY TAKING MAY HAVE - - DIRECTED SHOWER CHAIR DAILY TAKING IRON 325 (65 FE) MG TABLET 1 TABLET ORALLY BID TAKING ONETOUCH ULTRA II TEST STRIPS DIRECTED DAILY DX E 11.9 TAKING ONETOUCH ULTRASOFT LANCETS - MISCELLANEOUS DIRECTED DAILY DX E 11.9 TAKING ASPIR-81 81 MG TABLET DELAYED RELEASE 1 TABLET ORALLY ONCE A DAY TAKING CARVEDILOL 25 MG TABLET 1 TABLET WITH FOOD ORALLY TWICE A DAY, NOTES: 01/30 600 TAKING COLACE 100 MG CAPSULE 1 CAPSULE NEEDED ORALLY BID TAKING IPRATROPIUM-ALBUTEROL 0.5-2.5 (3) MG/3ML SOLUTION 3 ML PRN INHALATION FOUR TIMES DAILY PRN SOB TAKING LACTULOSE 20 GM PACKET 30ML ORALLY FOUR TIMES DAILY NEEDED FOR 3-4 LOOSE STOOLS A DAY TAKING LOSARTAN POTASSIUM 50 MG TABLET 0.5 TABLET ORALLY ONCE A DAY, NOTES: 01/29 2100 TAKING MECLIZINE HCL 25 MG TABLET 1 TABLET NEEDED ORALLY THREE TIMES DAILY TAKING NYSTATIN 285365 UNIT/GM CREAM 1 APPLICATION TO AFFECTED AREA OF ABDOMEN EXTERNALLY TWICE A DAY TAKING OMEPRAZOLE 20 MG TABLET DELAYED RELEASE 1 TABLET ORALLY ONCE A DAY TAKING SPIRONOLACTONE 50 MG TABLET 1 TABLET WITH FOOD ORALLY ONCE A DAY, NOTES: 01/30 600 TAKING XIFAXAN 550 MG TABLET 1 TABLET ORALLY-DR SERNA TWICE A DAY, NOTES: 01/30 600 TAKING FLONASE 50 MCG/ACT SUSPENSION 1 SPRAY IN EACH NOSTRIL NASALLY TWICE A DAY/PRN, NOTES: PER [facility] RECORDS 1 SPRAY DAILY PRN TAKING ROPINIROLE HCL 4 MG TABLET 1 TABLET ORALLY BID TAKING BUMETANIDE 2 MG TABLET DIRECTED ORALLY , NOTES: 01/30 600 TAKING ONDANSETRON HCL 4 MG TABLET 1 TABLET ORALLY ONCE A DAY TAKING TOPIRAMATE 50 MG TABLET 1 TABLET ORALLY ONCE A DAY TAKING DICLOFENAC SODIUM 1 % GEL DIRECTED TRANSDERMAL TAKING DICYCLOMINE HCL 10 MG CAPSULE 1 ML ORALLY FOUR TIMES A DAY TAKING POTASSIUM BICARB-CITRIC ACID 10 MEQ TABLET EFFERVESCENT 1 TABLET DISSOLVE IN 3 TO 4 OUNCES COLD WATER OR JUICE ORALLY TWICE A DAY TAKING GABAPENTIN 300 MG CAPSULE 1 CAPSULE ORALLY THREE TIMES DAILY, NOTES: 01/30 600 TAKING ZOLOFT 100 MG TABLET 1 1/2 TABLET ORALLY ONCE A DAY TAKING LEXAPRO 10 MG TABLET 1 TABLET ORALLY ONCE A DAY TAKING LIDOCAINE HCL 4 % PATCH 2% DIRECTED EXTERNALLY TAKING ADMELOG SOLOSTAR 100 UNIT/ML SOLUTION PEN-INJECTOR DIRECTED SUBCUTANEOUS SLIDING SCALE 4X/DAY, NOTES: DIABETES 01/29 2100-12 UNITS TAKING SEMGLEE 100 UNIT/ML SOLUTION 88 UNITS SUBCUTANEOUS TWICE DAILY, NOTES: 01/29 2100 NOT-TAKING BASAGLAR KWIKPEN 100 UNIT/ML SOLUTION PEN-INJECTOR 80U SUBCUTANEOUS BID NOT-TAKING HYDROXYZINE HCL 10 MG TABLET 2 TABLET NEEDED ORALLY BEFORE BEDTIME NOT-TAKING ADMELOG 100U/ML SOLUTION 10U TID CC PLUS CORRECTIONAL DOSE PER SLIDING SCALE SUBCUTANEOUS TID CC MDD 75U, NOTES: DUPLICATE NOT-TAKING DOCUSATE SODIUM 100 MG CAPSULE 1 CAPSULE NEEDED ORALLY ONCE A DAY, NOTES: DUPLICATE NOT-TAKING OXYCODONE HCL 10 MG TABLET 1 TABLET NEEDED ORALLY EVERY 6 HRS NOT-TAKING QVAR REDIHALER 40 MCG/ACT AEROSOL BREATH ACTIVATED 1 PUFF INHALATION ONCE A DAY NOT-TAKING BENTYL 10 MG CAPSULE 1 CAPSULE PRN ORALLY FOUR TIMES A DAY NOT-TAKING BUMEX 2 MG TABLET 1 TAB ORALLY BID NOT-TAKING POTASSIUM CHLORIDE 10 MEQ CAPSULE EXTENDED RELEASE 1 CAPSULE WITH FOOD ORALLY ONCE A DAY NOT-TAKING PROAIR HFA 108 (90 BASE) MCG/ACT AEROSOL SOLUTION 2 PUFFS NEEDED INHALATION EVERY 4 HRS NOT-TAKING TOPAMAX 50 MG TABLET 1 TABLET ORALLY BEFORE BEDTIME NOT-TAKING VITAMIN D3 2000 UNIT CAPSULE 1 CAPSULE ORALLY ONCE A DAY NOT-TAKING VOLTAREN 1 % GEL 4 GRAMS TO LEFT FOREARM TRANSDERMAL FOUR TIMES DAILY PRN TO LEFT KNEE AND LEFT WRIST NOT-TAKING ZOFRAN ODT 4 MG TABLET DISPERSIBLE 1 TABLET PRN NAUSEA ORALLY Q 4 HRS PRN NAUSEA NOT-TAKING TRIAMCINOLONE ACETONIDE 0.1 % OINTMENT 1 APPLICATION TO AFFECTED AREA OF HANDS EXTERNALLY TWICE A DAY NOT-TAKING ADMELOG SOLOSTAR NOT-TAKING CYCLOBENZAPRINE HCL 10 MG TABLET 1 TABLET NEEDED ORALLY THREE TIMES A DAY NOT-TAKING OXYCODONE HCL 5 MG TABLET 1 TABLET NEEDED ORALLY EVERY 6 HRS NOT-TAKING LORATADINE 10 MG TABLET 1 TABLET ORALLY ONCE A DAY NOT-TAKING SERTRALINE HCL 50 MG TABLET 1 TABLET ORALLY ONCE A DAY, NOTES: 75 MG DAILY NOT-TAKING BUPROPION HCL ER (XL) 300 MG TABLET EXTENDED RELEASE 24 HOUR 1 TABLET IN THE MORNING ORALLY ONCE A DAY MEDICATION LIST REVIEWED AND RECONCILED WITH THE PATIENT PAST MEDICAL HISTORY DIABETES MELLITUS TYPE 2 WITHOUT COMPLICATION, GOAL A1C 7% HYPERTENSION, GOAL 140/90 DEPRESSION KIDNEY STONES ARTHRITIS (NECK/BACK) RESTLESS LEGS GASTROESOPHAGEAL REFLUX DISEASE WITHOUT ESOPHAGITIS [place] CIRRHOSIS WITH SPLENOMEGALY PULMONARY HYPERTENSION ONE FALL THIS YEAR AND FRACTURE L5, STAYED OVER NIGHT IN THE ER ALLERGIES AVANDIA: RASH - ALLERGY GLUCOPHAGE: RASH - ALLERGY PYRIDIUM: BLEEDING - ALLERGY DILTIAZEM HCL: SWELLING - SIDE EFFECTS LISINOPRIL: COUGH - SIDE EFFECTS CLINDAMYCIN HCL: PRURITIS - SIDE EFFECTS SURGICAL HISTORY C SECTION 1987 GALL BLADDER 1987 BREAST LUMP REMOVED, RIGHT 1993 ENDOMETRIAL ABLATION 1998 MASS REMOVED FROM LEFT LEG 2010 LEFT SHOULDER ROTATOR CUFF 2011 LEFT BREAST CYST REMOVAL 2011 SINUS/ DEVIATED SEPTUM 2012 ACHELIES TENDON--RIGHT 2013 BRONCHOSCOPY 2004, 2006 COLONOSCOPY/ ENDOSCOPY HEART CATHERIZATION 05/2015 D&C & BX OF UTERINE LINING 11/2016 HEART CATH, LIVER BIOPSY 04/2017 FRACTURE L5 2020 SOCIAL HISTORY GENERAL: TOBACCO USE ARE YOU A:CURRENT SMOKER TRYING TO QUIT ARE YOU INTERESTED IN QUITTING?THINKING ABOUT QUITTING COUNSELED THE PATIENT ON SMOKING CESSATION, EDUCATION [id number]/26/2021 HOW MANY CIGARETTES A DAY DO YOU SMOKE?5 OR LESS HOW OFTEN DO YOU SMOKE CIGARETTES?SOME DAYS, BUT NOT EVERY DAY PATIENT COUNSELED ON THE DANGERS OF TOBACCO USE AND URGED TO QUIT:01/28/2021 SMOKING CESSATION INFORMATION GIVEN08/15/2020 LATEX QUESTIONNAIRE LATEX ALLERGY : HAVE YOU EVER DEVELOPED ANY TYPE OF REACTION AFTER HANDLING LATEX PRODUCTS SUCH RUBBER GLOVES, CONDOMS, DIAPHRAGMS, BALLOONS, SOCKS, OR UNDERWEAR?NO LATEX ALLERGY : HAVE YOU EVER DEVELOPED ANY TYPE OF REACTION DURING OR AFTER DENTAL APPOINTMENT, VAGINAL/RECTAL EXAMINATION, SURGICAL PROCEDURE, OR ANY OTHER EXPOSURE?NO LATEX RISK : HAVE YOU EVER HAD ANY DIFFICULTY BREATHING OR HIVES AFTER EATING OR HANDLING ANY FRUITS, OR VEGETABLES; SUCH KIWI, BANANAS, STONE FRUITS, OR CHESTNUTSYES - PLEASE INDICATE : BANANAS LATEX RISK : DO YOU HAVE A PREVIOUS PERSONAL HISTORY OF MORE THAN NINE SURGERIES, SPINA BIFIDA, OR REPEATED CATHERIZATIONS? NO LATEX RISK : ARE YOU FREQUENTLY EXPOSED TO LATEX PRODUCTS IN YOUR OCCUPATION?NO DATE ASKED : 01/28/2021 ALCOHOL USE: NO. BMI CARE GOAL FOLLOW-UP ABOVE NORMAL BMI FOLLOW-UPDIETARY MANAGEMENT EDUCATION, GUIDANCE, AND COUNSELING ALCOHOL SCREENING DID YOU HAVE A DRINK CONTAINING ALCOHOL IN THE PAST YEAR?NO POINTS0 INTERPRETATIONNEGATIVE RECREATIONAL DRUG USE DRUG USE?YES HOW OFTEN AND HOW MUCH? MARIJUANA COUPLE WEEKS AGO CAFFEINE CAFFEINE USE?YES HOW OFTEN AND HOW MUCH? OCC SEXUAL HX HAD SEX IN THE LAST 12 MONTHS (VAGINAL, ORAL, OR ANAL)?NO HAVE YOU EVER HAD AN STD?NO HIV / HEP-C SCREENING HIV TEST OFFERED TO PATIENT:YES DATE OFFERED:06/02/2018 TEST ACCEPTED:YES HEP-C TEST OFFERED TO PATIENT:YES DATE OFFERED:06/02/2018 TEST ACCEPTED:YES BROCHURE PROVIDED TO PATIENTYES [facility] [id number] NONE LANGUAGE LANGUAGES SPOKEN:TEL[place] EDUCATION LEVEL OF EDUCATION:HIGH SCHOOL LEARNING BARRIERS / SPECIAL NEEDS CHANGE FROM LAST VISIT?NO BARRIERS TO LEARNING?NO HEARING IMPAIRED?YES : VERY LITTLE VISION IMPAIRED?YES : CORRECTIVE LENSES COGNITIVELY IMPAIRED?NO READINESS TO LEARN?YES LEARNING PREFERENCES?NO LEARNING CAPABILITIES PRESENT?YES EMOTIONAL BARRIERS?NO SPECIAL DEVICES?YES :CANE, WALKER MARITIME GUARD NEEDED?NO DOMESTIC VIOLENCE DO YOU FEEL SAFE IN YOUR ENVIRONMENT?YES OCCUPATION: UNEMPLOYED. DIET: REGULAR. EXERCISE: NO REGULAR EXERCISE. MARITAL STATUS: .. OTHERS AT HOME: CHILD, IN-LAW(S). FROM 0-10, WHAT LEVEL IS YOUR PAIN TODAY? 8. - PFS REFERRAL NEEDED?NO CLERGY REFERRAL NEEDED?NO PUBLIC HEALTH REFERRAL NEEDED?NO HAS THE PATIENT BEEN EDUCATED REGARDING HIS/HER PLAN OF CARE?YES HAS THE PATIENT BEEN EDUCATED REGARDING PAIN, THE RISK FOR PAIN, THE IMPORTANCE OF EFFECTIVE PAIN MANAGEMENT, AND THE PAIN ASSESSMENT PROCESS?YES ADVANCE DIRECTIVE ADVANCE DIRECTIVE DISCUSSED WITH PATIENT:YES LELA BALDWIN SON [phone] PACK YRS. HOSPITALIZATION/MAJOR DIAGNOSTIC PROCEDURE SURGICALY RELATED MILD RENAL FAILURE [facility]--HEART CATH 05/2015 ELEVATED AMMONIA LEVELS 12/2016 [facility] INCREASED AMMONIA LEVEL 02/2017 [facility] 04/2017 [facility] - ELEVATED GLUCOSE 07/2017 [facility] - 10/2017 [facility] - ULCERATIVE COLITIS 02/20/18 [facility] - COLITIS 06/2018 [facility] - CELLULITIS 09/2018 [facility] - CELLULITIS 09/3018 [facility] - 10/2018 FRACTURE L5- FROM FALL 2020 VITAL SIGNS WT 337.6 LBS, HT 72 IN, BMI 45.78 INDEX, BP 113/56 MM HG, HR 69 /MIN, RR 18 /MIN, TEMP 97.1 F, OXYGEN SAT % 99%, SAFE IN ENV? (Y/N) Y, NA INITIALS AW 0848, REVIEWED BY: Chica KNOX RN. EXAMINATION GENERAL: THE PATIENT IS ALERT, ORIENTED TIMES THREE AND COOPERATIVE. LUNGS ARE CLEAR TO AUSCULTATION. HEART SHOWS REGULAR RHYTHM, NO MURMURS AND NO GALLOPS. ASSESSMENTS MYALGIA, UNSPECIFIED SITE - M79.10 (PRIMARY) TREATMENT MYALGIA, UNSPECIFIED SITE MEDICATION: PAIN VALIUM TAB 2MG ORALLY (DIAZEPAM)PAMELA MORNA 01/30/2021 9:30:13 AM > VERIFIED. HARISH KNOX 01/30/2021 9:32:11 AM > ADMINISTERED COMPLETION OF PROCEDURAL VISIT WHEN MEETS CRITERIADENEFTALYHARISH KUMARI 01/30/2021 4:51:51 PM > CRITERIA MET MED: PAIN NORCO TABLET 5MG/325MG ORALLY HYDROCODONE/ACETAMINOPHENSYPAMELA BARBA 01/30/2021 9:29:56 AM > VERIFIED. HARISH KNOX 01/30/2021 9:32:31 AM > ADMINISTERED OTHERS NOTES: 01/28/21 1210 PAT COMPLETED. Jessica MORAN RN. PROCEDURES PAIN NURSING RECORD PROCEDURE IN ROOM 0848, PHYSICIAN IN ROOM 0949, START 0951, FINISH 0952, PHYSICIAN OUT OF ROOM 0953, OUT OF ROOM 1019, ECG N/A, PATIENT SHIELDED N/A, SAFETY STRAP N/A, PREP ALCOHOL DR. MASSEY, DRESSING TEGADERM Theresa KNOX RN LOC: HARISH KNOX 01/30/2021 9:42:38 AM > 1. ALERT, ORIENTED RESP: HARISH KNOX 01/30/2021 9:42:43 AM > 1. REGULAR, NO DYSPNEA COLOR: HARISH KNOX 01/30/2021 9:42:46 AM > 1. PINK SKIN: HARISH KNOX 01/30/2021 9:42:50 AM > 1. WARM, DRY POSITION: HARISH KNOX 01/30/2021 9:43:00 AM > 5. SITTING VITALS: HARISH KNOX 01/30/2021 10:06:46 AM > 124/62, 62,18,99% COMPLETION OF PROCEDURE APPOINTMENT: POST PAIN 6, DRESSING SITE DRY AND INTACT, IV N/A, GAIT STEADY USES WHEELING WALKER, TEACHING COMPLETED, PATIENT ACKNOWLEDGES UNDERSTANDING YES, PROCEDURE APPOINTMENT COMPLETED AT 1019 BY: A. ABILIO RN PN TRIGGER POINT INJECTION NO STEROIDS PRE PROCEDURE DIAGNOSIS 1. MYALGIA 2. PAIN AT BILATERAL LOW BACK AREA POST PROCEDURE DIAGNOSIS 1. MYALGIA 2. PAIN AT BILATERAL LOW BACK AREA PROCEDURE TRIGGER POINT INJECTION AT BILATERAL LOW BACK AREA SURGEON DR. ALEJANDRO MASSEY COBBLER SOLE NONE ANESTHESIA LOCAL PRE PROCEDURE NOTE PATIENT WITH HISTORY OF CHRONIC PAIN AT RIGHT AND LEFT LOW BACK AREA. I EVALUATED THE PATIENT AND REVIEWED THE CHART. THERE IS EVIDENCE OF BANDS OF TISSUE WITH RESTRICTION OF MOVEMENT AND PRESENCE OF TRIGGER POINT AT THE RIGHT AND LEFT LOW BACK AREA. I WENT OVER THE RISKS, ALTERNATIVES, AND BENEFITS ASSOCIATED WITH THIS PROCEDURE. THE PATIENT WOULD LIKE TO PROCEED AND GAVE CONSENT TO PERFORM THE PROCEDURE. THE PATIENT DENIES UNEXPLAINABLE WEIGHT LOSS, FEVER, CHILLS, OR NEW CHANGES IN URINARY OR BOWEL CONTROL. THE PATIENT IS COVID-19 NEGATIVE DESCRIPTION OF PROCEDURE THE PATIENT WAS BROUGHT TO THE PROCEDURE ROOM AND PLACED IN THE SITTING POSITION. THE AREA WAS CLEANED WITH ALCOHOL. THE PROCEDURE WAS DONE USING ASEPTIC STERILE TECHNIQUES. A TIMEOUT WAS PERFORMED WHERE THE CONSENTED SITE WAS VERIFIED WITH EVERYONE IN THE ROOM. USING A 25-GAUGE NEEDLE, TRIGGER POINTS WERE INJECTED INTO THE RIGHT AND LEFT LOW BACK AREA WITH A TOTAL OF 40 ML OF BUPIVACAINE 0.25%. AGREED WITH THE PATIENT THE PROCEDURE WAS DONE WITHOUT STEROIDS. THERE WAS NO EVIDENCE OF BLOOD, PARESTHESIA OR CEREBROSPINAL FLUID DURING THE PROCEDURE. THE PATIENT WAS SENT TO THE RECOVERY ROOM. THE PATIENT WAS MOVING THE EXTREMITIES AND DOING WELL. THERE WAS NO COMPLICATION DURING THE PROCEDURE. EBL LESS THAN 5 ML. POST PROCEDURE NOTE DEPENDING ON THE RESULTS, CONSIDER REPEATING INJECTION WITH STEROIDS. THE PROCEDURE DONE WAS DISCUSSED WITH THE PATIENT. THE PATIENT WILL BE SEEN IN A FOLLOW UP IN THE NEXT FEW WEEKS. I AM LOOKING FOR LONG LASTING PAIN RELIEF FOR THE PATIENT WITH THIS INTERVENTION. INSTRUCTIONS WERE GIVEN, QUESTIONS WERE ANSWERED, AND THE PATIENT EXPRESSED UNDERSTANDING AND AGREES WITH THE PLAN. I, ANGELES MCWILLIAMS, DOCUMENTED THE ABOVE INFORMATION ACTING A SCRIBE FOR DR. MASSEY. I HAVE REVIEWED THE ABOVE DOCUMENT, WRITTEN BY ANGELES MCWILLIAMS, COFFEE WEIGHER, AND I VERIFY THAT IT IS ACCURATE PROCEDURE CODES 04374 INJ TRIGGER POINT 07/07 MUSCL DISPOSITION & COMMUNICATION FOLLOW UP FOLLOW UP WITH FEDERAL JUDICIAL LAW CLERK (REASON: POST TRIGGER POINT INJECTION BILATERAL LOW BACK) ELECTRONICALLY SIGNED BY ALEJANDRO MASSEY MD, MD ON 01/31/2021 AT 12:09 PM EDT DISCLAIMER : THIS IS A VISIT SUMMARY EXTRACTED FROM THE [employer] CHART. IT IS NOT A COPY OF THE [employer] PROGRESS NOTE. SETH
== END ==
LOC: M PAIN 08:30
PROVIDERS: ATTEND Anesthesiology
DX: M79.18 Myalgia, other site (principal); E11.9 Type 2 diabetes mellitus without complications; I10 Essential (primary) hypertension; F32.9 Major depressive disorder, single episode, unspecified; Z87.442 Personal history of urinary calculi; G25.81 Restless legs syndrome; K21.9 Gastro-esophageal reflux disease without esophagitis; K76.0 Fatty (change of) liver, not elsewhere classified; K74.60 Unspecified cirrhosis of liver; R16.1 Splenomegaly, not elsewhere classified; I27.20 Pulmonary hypertension, unspecified; F17.210 Nicotine dependence, cigarettes, uncomplicated; Z79.82 Long term (current) use of aspirin; Z79.899 Other long term (current) drug therapy; Z88.1 Allergy status to other antibiotic agents; Z88.8 Allergy status to other drugs, medicaments and biological substances

== ENCOUNTER 2021-02-23 11:30 | Inpatient (IN) | payer OTHER ==
[~2021-02-23] VITALS: Ht 182.9 cm; Wt 154.5 kg
[~2021-02-23 11:30] MED LIST changes: -BUPIVACAINE HCL 0.25% 10ML VIAL As Ordered ONE; -BUPIVACAINE HCL 0.25% 30ML VIAL As Ordered ONE; -NORCO, ANEXSIA 5/325MG TABLET (HYDROcodone/ACETAMINOPHEN) As Ordered ONE; -TRIAMCINOLONE ACETONIDE SUSP 40 MG/ML VIAL (J3301) As Ordered ONE; -diazePAM 2 MG TAB As Ordered ONE
[2021-02-23 12:48] LABS: BASO % 0.3 % (0.0-1.0); EOS # 0.1 10^3/uL (0.0-0.5); EOS % 1.3 % (0.0-3.0); HEMATOCRIT 30.8 % (36.0-47.0); HEMOGLOBIN 11.1 g/dl (12.0-15.5); LYMPH # 0.8 10^3/uL (1.5-5.0); LYMPH % 22.5 % (24.0-44.0); MEAN CORPUSCULAR HEMOGLOBIN 33.3 pg (27.0-33.0); MEAN CORPUSCULAR VOLUME 92.5 fl (80.0-96.0); MONO # 0.3 10^3/uL (0.0-0.8); MONO % 8.3 % (2.0-8.0); NEUTROPHILS # 2.5 10^3/uL (1.5-8.5); NEUTROPHILS % 67.3 % (36.0-66.0); PLATELET COUNT, AUTOMATED 111 10^3/uL (150-450); RED BLOOD COUNT 3.33 10^6/uL (4.00-5.40); WHITE BLOOD COUNT 3.7 10^3/uL (4.0-10.0)
[2021-02-23 12:54] LABS: RSV AMPLIFICATION NEGATIVE (NEGATIVE)
[2021-02-23 12:59] LABS: INR 1.04
--- NOTE | 2021-02-23 13:02 | REP ---
INDICATION: admission COMPARISON: 02/19/2020 TECHNIQUE: Portable AP view of the chest FINDINGS: The mediastinum and cardiac silhouette are stable and within normal limits for portable technique. The lung go are clear without acute consolidation, effusion, or pneumothorax. Skeletal structures are intact. IMPRESSION: No acute cardiopulmonary process appreciated. <Electronically signed by Edward Schmidt > 02/23/21 [id number]
[2021-02-23 13:19] LABS: ALBUMIN 3.1 GM/DL (3.2-5.2); BILIRUBIN,DIRECT 0.3 MG/DL (0.0-0.2); BILIRUBIN,TOTAL 0.8 MG/DL (0.2-1.0); CALCIUM LEVEL 8.6 MG/DL (8.5-10.1); CREATININE FOR GFR 1.08 MG/DL (0.55-1.30); GLOMERULAR FILTRATION RATE 56.3 (>51); POTASSIUM SERUM 3.8 MEQ/L (3.5-5.1); TOTAL PROTEIN 6.8 GM/DL (6.4-8.2)
[2021-02-23 13:26] LABS: CK-MB VALUE MASS 22.4 NG/ML (<3.6); CPK CREATINE PHOSPHOKINASE 565 U/L (26-192); MB/CK RELATIVE INDEX 3.96 (< OR =4); TROPONIN I < 0.02 NG/ML (< 0.10)
--- NOTE | 2021-02-23 13:26 | REP ---
INDICATION: trauma COMPARISON: 02/19/2020 TECHNIQUE: Axial noncontrast images from the skull base to the thoracic inlet with coronal reformations. This CT examination was performed using the following dose reduction techniques: Automated exposure control, adjustment of mA and/or kv according to the patient's size, and use of iterative reconstruction technique. FINDINGS: Evaluation is significantly limited by motion and technical factors. No obvious midline shift, hydrocephalus, intracranial mass/mass effect, hemorrhage or extra-axial fluid collection identified. Osseous structures appear intact and without acute fracture. Sinuses and mastoid air cells are within normal limits. IMPRESSION: Limited noncontrast head CT. No obvious acute intracranial pathology or trauma/injury. <Electronically signed by Edward Schmidt > 02/23/21 [id number]
--- NOTE | 2021-02-23 13:28 | REP ---
INDICATION: trauma COMPARISON: 04/25/2019 TECHNIQUE: Axial noncontrast images from the skull base to the thoracic inlet with coronal and sagittal re-formations This CT examination was performed using the following dose reduction techniques: Automated exposure control, adjustment of mA and/or kv according to the patient's size, and use of iterative reconstruction technique. FINDINGS: Examination is limited by significant motion artifact. Alignment and lordosis appears relatively maintained. No obvious acute fracture/compression injury or acute subluxation. Posterior elements and spinous processes appear intact. Paravertebral soft tissues are grossly normal. IMPRESSION: Limited by motion artifact. No evidence for acute pathology or trauma/injury. <Electronically signed by Edward Schmidt > 02/23/21 [id number]
[2021-02-23] MEDS ORDERED: LEXA5TAB13 PO (14:20)
[2021-02-23] MEDS ORDERED: INSU100V8 SC (14:20)
[2021-02-23] MEDS ORDERED: GABA-282 PO (14:20)
[2021-02-23] MEDS ORDERED: MECLIZINE 25 MG TABLET PO PRN (14:25)
[2021-02-23] MEDS ORDERED: GLUCOSE 4GM CHEW TABLET PO PRN (14:25)
[2021-02-23] MEDS ORDERED: ALBUTEROL 90 MCG/ACT 8GM HFA INHALER INH PRN (14:25)
[2021-02-23] MEDS ORDERED: HOME MED LIST COMPLETE! XX SCH (14:25)
[2021-02-23] MEDS ORDERED: LORATADINE 10 MG TAB PO PRN (14:25)
[2021-02-23] MEDS ORDERED: GLUCAGON INJ 1MG VIAL SC PRN (14:25)
[2021-02-23] MEDS ORDERED: FLUTICASONE PROP 0.05% NASAL SPRAY 16 GM (FLONASE) PRN (14:25)
[2021-02-23] MEDS ORDERED: DEXTROSE 50% 50 ML SYRINGE IV PRN (14:25)
[2021-02-23] MEDS ORDERED: COMMENTS (14:28)
--- NOTE | 2021-02-23 14:42 | HPEPDOC ---
[facility] Medical History & Physical Date of Admission Feb 23, 2021 Date of Service: Feb 23, 2021 History and Physical CHIEF COMPLAINT: Altered mental status HISTORY OF PRESENT ILLNESS: Mrs. Devi is a 55-year-old female with past medical history of Champagne cirrhosis, recurrent admissions for hepatic encephalopathy, HFpEF, hypertension, depression, type 2 diabetes, anxiety brought to the ER by EMS after she was discovered on the floor in her bathroom this morning. Patient has a history of noncompliance with lactulose and rifaximin. In the ER CT scan of the head neck showed no acute abnormalities. At the time my examination patient is severely obtunded and is unable to provide any history she briefly opens her eyes and quickly shuts them again. Patient will be admitted to the hospitalist service to the PCU floor for the management of hepatic encephalopathy. The past medical history has been obtained from chart review. PAST MEDICAL HISTORY: CHAMPAGNE Cirrhosis CHF Hypertension Depression and anxiety Type 2 DM PAST SURGICAL HISTORY: Cholecystectomy 1993 FAMILY HISTORY: There is a strong family history of diabetes including her 3 sisters and her father. ALLERGIES: Please see below. REVIEW OF SYSTEMS: Patient is obtunded and unable to participate in a 10 point review of systems HOME MEDICATIONS: Please see below. PHYSICAL EXAMINATION: VITAL SIGNS: please see below General: Patient is obtunded briefly opens her eyes to voice. HEENT: PERRLA, EOMI, sclerae clear Neck: supple, normal ROM, no JVD Respiratory: lungs CTAB, no wheeze, no rales, no crackles CVS: RRR, normal S1, S2, no murmurs Abdo: soft, no masses, no hepatosplenomegaly, BS+, no rebound tenderness Extremities: no edema, pulses 2+ MSK: no joint deformities, normal ROM Neuro: no focal neuro deficits, moving all 4 extremities, CN2-12 intact. Strength 5/5 in all 4 extremities. No nystagmus. Psych: calm, cooperative, AAO x 0 LABORATORY DATA: See below. IMAGING: CT head non contrast (02/23/21): IMPRESSION: Limited noncontrast head CT. No obvious acute intracranial pathology or trauma/injury. CT C-spine wo contrast (02/23/21): FINDINGS: Examination is limited by significant motion artifact. Alignment and lordosis appears relatively maintained. No obvious acute fracture/compression injury or acute subluxation. Posterior elements and spinous processes appear intact. Paraverte bral soft tissues are grossly normal. IMPRESSION: Limited by motion artifact. No evidence for acute pathology or trauma/injury. CXR (02/23/21): IMPRESSION: No acute cardiopulmonary process appreciated. MICROBIOLOGY: Please see below. ASSESSMENT: 55-year-old female with past medical history of Champagne cirrhosis, recurrent admissions for hepatic encephalopathy, HFpEF, hypertension, depression, type 2 diabetes, anxiety brought to the ER by EMS after she was discovered on the floor in her bathroom this morning. Patient has a history of noncompliance with lactulose and rifaximin . PLAN: # Champagne cirrhosis: Continue home dose of lactulose. Ammonia 106. Unable to take PO at this time. Ordered lactulose syrup per rectum. PO lactulose and rifaximine once more alert. Follows with GI in [place]. # Hypertension: Resume home meds. Monitor and titrate. # CHFpEF: Echo 11/2019 showing EF 65-70% grade 2 LV diastolic dysfunction. C/w spironoloactone, carvediolol, bumetanide, losartan. # Depression and anxiety: resume escitalopram. # Type 2 DM: Check A1c, lipid panel. Per records, uncontrolled. ISS and FSBS q6h while NPO. IV d5 0.45% NS at 125 cc/hr. Takes levemir 15 units SC at night. # Diabetic peripheral neuropathy: Continue home meds # GERD: continue protonix # Asthma: albuterol PRN # Falls at home: Uses walker at home. PT/OT. # Disposition: Social work to please assist with possible placment. Unable to take care of herself at home or take her medications. # DVT prophylaxis: Lovenox Dispo: pending clinical improvement. Vital Signs Vital Signs Date Time Temp Pulse Resp B/P (MAP) Pulse Ox O2 Delivery O2 Flow Rate FiO2 02/23/21 13:45 67 18 151/70 (97) 93 Room Air 02/23/21 11:53 96.9 Laboratory Data Labs 24H Laboratory Tests 2 02/23/21 12:03: Immature Granulocyte % (Auto) 0.3, Neutrophils (%) (Auto) 67.3H, Lymphocytes (%) (Auto) 22.5L, Monocytes (%) (Auto) 8.3H, Eosinophils (%) (Auto) 1.3, Basophils (%) (Auto) 0.3, Neutrophils # (Auto) 2.5, Lymphocytes # (Auto) 0.8L, Monocytes # (Auto) 0.3, Eosinophils # (Auto) 0.1, Basophils # (Auto) 0.0, Nucleated Red Blood Cells % (auto) 0.0, Prothrombin Time 14.0, Prothromb Time International Ratio 1.04, Anion Gap 5L, Glomerular Filtration Rate 56.3, Calcium Level 8.6, Total Bilirubin 0.8, Direct Bilirubin 0.3H, Aspartate Amino Transf (AST/SGOT) 41H, Alanine Aminotransferase (ALT/SGPT) 33, Alkaline Phosphatase 130H, Ammonia 106H, Total Creatine Kinase 565H, Creatine Kinase MB 22.4H, Creatine Kinase MB Relative Index 3.96, Troponin I < 0.02, Total Protein 6.8, Albumin 3.1L, Albumin/Globulin Ratio 0.8L, Coronavirus (COVID-19)(PCR) NEGATIVE, Influenza Type A (RT-PCR) NEGATIVE, Influenza Type B (RT-PCR) NEGATIVE, Respiratory Syncytial Virus (PCR) NEGATIVE CBC/BMP Laboratory Tests 02/23/21 12:03 Home Medications Scheduled Ammonium Lactate (Ammonium Lactate) 12% Lotion, 1 DOSE TOP DAILY Aspirin (Aspirin EC) 81 Mg Tabec, 81 MG PO DAILY Bumetanide (Bumetanide) 2 Mg Tab, 2 MG PO BID Buspirone HCl (Buspirone HCl) 10 Mg Tablet, 10 MG PO BID Carvedilol (Carvedilol) 25 Mg Tab, 25 MG PO BID Dicyclomine HCl (Dicyclomine HCl) 10 Mg Capsule, 10 MG PO QID 0800, 1200, 1700, 2000 Docusate Sodium (Docusate Sodium) 100 Mg Capsule, 100 MG PO BID Ergocalciferol (Vitamin D2) (Vitamin D2) 2,000 Unit Cap, 2,000 UNIT PO DAILY Ferrous Sulfate (Ferrous Sulfate) 325 Mg Tablet.dr, 325 MG PO DAILY Hydroxyzine HCl (Hydroxyzine HCl) 10 Mg Tablet, 20 MG PO QHS Insulin Glargine,Hum.rec.anlog (Basaglar Kwikpen U-100) 100 Unit/Ml Inj, 80 UNIT SC BID Insulin Lispro (Admelog) 100 Unit/Ml Inj, 15 UNITS SC AC Insulin Lispro (Admelog) 100 Unit/1 Ml Vial, 1 DOSE SC ACHS PER SLIDING SCALE Losartan Potassium (Losartan Potassium) 50 Mg Tablet, 25 MG PO QHS Omeprazole (Omeprazole) 20 Mg Cap, 20 MG PO DAILY Potassium Chloride (Potassium Chloride) 10 Meq Cap, 10 MEQ PO QHS Rifaximin (Xifaxan) 550 Mg Tab, 550 MG PO BID 0800, 1700 Ropinirole HCl (Ropinirole HCl) 4 Mg Tablet, 4 MG PO BID Sertraline HCl (Sertraline HCl) 50 Mg Tablet, 75 MG PO DAILY Spironolactone (Spironolactone) 50 Mg Tab, 50 MG PO DAILY Topiramate (Topiramate) 50 Mg Tablet, 50 MG PO QHS Scheduled PRN Albuterol Sulfate (Proair Hfa) 108 Mcg/Act Aer, 2 PUFF INH Q4H PRN for SHORTNESS OF BREATH Diclofenac Sodium (Diclofenac Sodium) 1% 100GM Gel..gram., 2 GM TOP QID PRN for PAIN APPLY TO KNEES Fluticasone Propionate (Fluticasone Propionate) 50 Mcg/Act Spr, 1 SPRAY NA DAILY PRN for NASAL CONGESTION Lactulose (Lactulose) 10 Gm/15 Ml Solution, 15 ML PO TID PRN for CONSTIPATION TAKES MEDICATION TO MAINTAIN 3-4 BOWEL MOVEMENTS PER DAY Loratadine (Loratadine) 10 Mg Tablet, 10 MG PO QHS PRN for ALLERGY SYMPTOMS Meclizine HCl (Meclizine HCl) 25 Mg Tab, 25 MG PO TID PRN for VERTIGO/DIZZINESS Nystatin (Nystatin) 15 Gm Cream..g., 1 DOSE TOP BID PRN for RASH APPLY TO AREAS OF ABDOMEN Ondansetron HCl (Ondansetron HCl) 4 Mg Tablet, 4 MG PO TID PRN for NAUSEA OR VOMITING Allergies Coded Allergies: clindamycin (Verified Allergy, Intermediate, itching, 12/21/19) diltiazem (Verified Allergy, Intermediate, SWELLING IN HANDS, FEET AND LEGS, 12/21/19) metformin (Verified Allergy, Intermediate, RASH, 12/21/19) phenazopyridine (Verified Adverse Reaction, Intermediate, CAUSES BLEEDING, 12/21/19) lisinopril (Verified Adverse Reaction, Mild, COUGH, 12/21/19) rosiglitazone (Verified Adverse Reaction, Mild, WATER RETENTION, 12/21/19) A-FIB/CHADSVASC A-FIB History Current/History of A-Fib/PAF?: No MI GRAYSON MD Feb 23, 2021 14:42
[2021-02-23] MEDS ORDERED: D5W/0.45% SODIUM CHLORIDE 1,000 ML IV SCH (15:00)
[2021-02-23] MEDS ORDERED: LACTULOSE 20 GM/30 ML SYRUP UD PR ONE (15:30)
[2021-02-23] MEDS: GABAPENTIN 300 MG CAP PO SCH ×2 (16:00→20:25)
[2021-02-23 16:24] VITALS: BP 151/67
[2021-02-23] MEDS: DICYCLOMINE 10 MG CAP PO SCH ×2 (17:00→20:26)
[2021-02-23] MEDS: HumaLOG INSULIN (NovoLOG) PER UNIT SC SCH ×3 (17:30→20:21)
[2021-02-23] MEDS: LACTULOSE 20 GM/30 ML SYRUP UD PO SCH ×2 (17:31→20:22)
[2021-02-23] MEDS: ACETAMINOPHEN TAB 650MG DOSE (2X325MG) PO PRN (17:32)
[2021-02-23] MEDS ORDERED: traMADol 50 MG TAB PO PRN (19:25)
[2021-02-23] MEDS ORDERED: ISOVUE-370 76% 100ML VIAL As Ordered ONE (19:32)
[2021-02-23 20:00] VITALS: BP 143/68
[2021-02-23] MEDS: rOPINIRole 1MG TAB PO SCH (20:24)
[2021-02-23] MEDS: TOPIRAMATE (TopAMAX) 25 MG TAB PO SCH (20:24)
[2021-02-23] MEDS: BUMETANIDE 1 MG TAB PO SCH (20:25)
[2021-02-23] MEDS: DOCUSATE SODIUM 100MG CAPSULE PO SCH (20:26)
--- NOTE | 2021-02-23 20:26 | REPVR ---
PROCEDURE INFORMATION: Exam: CTA Chest With Contrast Exam date and time: 02/23/2021 7:52 PM Age: 55 years old Clinical indication: Chest wall pain and right-sided; Additional info: Right sided chest wall pain TECHNIQUE: Imaging protocol: Computed tomographic angiography of the chest with contrast. 3D rendering (Not supervised by radiologist): MIP and/or 3D reconstructed images were created by the technologist. Radiation optimization: All CT scans at this facility use at least one of these dose optimization techniques: automated exposure control; mA and/or kV adjustment per patient size (includes targeted exams where dose is matched to clinical indication); or iterative reconstruction. Contrast material: ISOVUE 370; Contrast volume: 75 ml; Contrast route: INTRAVENOUS (IV); COMPARISON: CT ANGIO CHEST 07/14/2015 2:10 AM FINDINGS: Pulmonary arteries: Peripheral pulmonary artery evaluation limited by cardiac and respiratory motion artifact. Central pulmonary arteries show no intraluminal defect suggestive of clot. Aorta: No thoracic aortic aneurysm or dissection. Lungs: Pulmonary vascular/interstitial pattern does not suggest active pulmonary edema. No suspicious lung mass or air space process. No central endobronchial lesion. Pleural spaces: No pleural effusion or pneumothorax. Heart: No overt cardiac enlargement or abnormal volume of pericardial fluid. Lymph nodes: No enlarged mediastinal lymph nodes. Gallbladder and bile ducts: Gallbladder is surgically absent. Stomach and bowel: No concerning asymmetry or abnormality at the GE junction. Bones/joints: Bony structures show no acute fracture or destructive process. Soft tissues: No asymmetric abnormality of the extrathoracic soft tissues. IMPRESSION: 1. No evidence of acute, central pulmonary embolus. Peripheral pulmonary arterial evaluation is limited by cardiac and respiratory motion artifact. 2. No other acute or concerning focal intrathoracic abnormality. No explanation for right sided chest wall pain Electronically signed by: Anton Trujillo On 02/23/2021 20:26:03 PM
[2021-02-23] MEDS: LOSARTAN 25 MG TAB PO SCH (20:29)
[2021-02-23] MEDS: CARVedilol 12.5 MG TAB PO SCH (20:29)
[2021-02-23] MEDS: HEPARIN SOD (PORCINE) 5000UNITS/ML 1ML VIAL/SYRINGE SC SCH (20:30)
[2021-02-24] VITALS: BP 135/61
[2021-02-24 04:00] VITALS: BP 134/63
[2021-02-24] MEDS: HEPARIN SOD (PORCINE) 5000UNITS/ML 1ML VIAL/SYRINGE SC SCH ×3 (05:36→20:25)
[2021-02-24 06:02] LABS: EOS # 0.1 10^3/uL (0.0-0.5); EOS % 2.7 % (0.0-3.0); HEMOGLOBIN 9.3 g/dl (12.0-15.5); LYMPH # 1.2 10^3/uL (1.5-5.0); LYMPH % 40.1 % (24.0-44.0); MEAN CORPUSCULAR HEMOGLOBIN 32.6 pg (27.0-33.0); MEAN CORPUSCULAR HGB CONC 34.4 g/dl (32.0-36.5); MEAN CORPUSCULAR VOLUME 94.7 fl (80.0-96.0); MONO # 0.2 10^3/uL (0.0-0.8); NEUTROPHILS # 1.4 10^3/uL (1.5-8.5); NEUTROPHILS % 47.9 % (36.0-66.0); PLATELET COUNT, AUTOMATED 104 10^3/uL (150-450); RED BLOOD COUNT 2.85 10^6/uL (4.00-5.40)
[2021-02-24 06:43] LABS: ALBUMIN 2.5 GM/DL (3.2-5.2); BILIRUBIN,TOTAL 0.5 MG/DL (0.2-1.0); CALCIUM LEVEL 7.9 MG/DL (8.5-10.1); CREATININE FOR GFR 1.2 MG/DL (0.55-1.30); GLOMERULAR FILTRATION RATE 49.8 (>51); POTASSIUM SERUM 3.9 MEQ/L (3.5-5.1)
[2021-02-24 08:00] VITALS: BP 143/66
--- NOTE | 2021-02-24 08:50 | ECGEPIP ---
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
[2021-02-24] MEDS ORDERED: LACTIC ACID 12% LOTION 225 GM BTL TOP PRN (09:00)
[2021-02-24] MEDS: LACTULOSE 20 GM/30 ML SYRUP UD PO SCH ×3 (09:04→20:25)
[2021-02-24] MEDS: KETOROLAC 30 MG/ML 1ML VIAL IV PRN (09:06)
[2021-02-24] MEDS: HumaLOG INSULIN (NovoLOG) PER UNIT SC SCH ×7 (09:07→20:22)
[2021-02-24] MEDS: GABAPENTIN 300 MG CAP PO SCH ×3 (09:08→20:26)
[2021-02-24] MEDS: ACETAMINOPHEN TAB 650MG DOSE (2X325MG) PO PRN (09:08)
[2021-02-24] MEDS: OMEPRAZOLE 20 MG CAP PO SCH (09:08)
[2021-02-24] MEDS: SERTRALINE HCL 25 MG TABLET PO SCH (09:09)
[2021-02-24] MEDS: rOPINIRole 1MG TAB PO SCH ×2 (09:09→20:23)
[2021-02-24] MEDS: DOCUSATE SODIUM 100MG CAPSULE PO SCH ×2 (09:09→20:26)
[2021-02-24] MEDS: CARVedilol 12.5 MG TAB PO SCH ×2 (09:09→20:24)
[2021-02-24] MEDS: SPIRONOLACTONE 50 MG TAB PO SCH (09:09)
[2021-02-24] MEDS: ASPIRIN 81MG ENTERIC TABLET PO SCH (09:09)
[2021-02-24] MEDS: FERROUS SULFATE 325MG TAB PO SCH (09:10)
[2021-02-24] MEDS: DICYCLOMINE 10 MG CAP PO SCH ×4 (09:10→20:25)
[2021-02-24] MEDS: ESCITALOPRAM OXALATE 5MG TABLET (LEXAPRO) PO SCH (09:10)
[2021-02-24] MEDS: BUMETANIDE 1 MG TAB PO SCH ×2 (09:10→20:25)
[2021-02-24 10:58] LABS: HEMOGLOBIN A1c 9.1 %
[2021-02-24 12:00] VITALS: BP 111/55
--- NOTE | 2021-02-24 12:04 | IPNPDOC ---
Date Seen The patient was seen on 02/24/21. Progress Note SUBJECTIVE: Patient was seen and examined at bedside. She is alert oriented x3 fully conversational and eating her breakfast. Patient states that she has no left-sided chest pain no palpitations no fever no chills. She does have right chest wall pain as well as pain involving her right hip. She is unsure if she had fallen and injured but per report from EMS it appears this may have happene d. OBJECTIVE VITAL SIGNS: please see below General: Patient is obtunded briefly opens her eyes to voice. HEENT: PERRLA, EOMI, sclerae clear Neck: supple, normal ROM, no JVD Respiratory: lungs CTAB, no wheeze, no rales, no crackles CVS: RRR, normal S1, S2, no murmurs Abdo: soft, no masses, no hepatosplenomegaly, BS+, no rebound tenderness Extremities: no edema, pulses 2+ MSK: no joint deformities, normal ROM. Patient has paced palpable pain to palpation of the right hip Neuro: no focal neuro deficits, moving all 4 extremities, CN2-12 intact. Strength 5/5 in all 4 extremities. No nystagmus. Psych: calm, cooperative, AAO x 3 LABORATORY DATA, IMAGING STUDIES, MICROBIOLOGY: Please see below. DVT prophylaxis ordered?: Jovanx ASSESSMENT: 55-year-old female with past medical history of Ponce cirrhosis, recurrent admissions for hepatic encephalopathy, HFpEF, hypertension, depression, type 2 diabetes, anxiety brought to the ER by EMS after she was discovered on the floor in her bathroom this morning. Patient has a history of noncompliance with lactulose and rifaximin . PLAN: # Ponce cirrhosis: Continue home dose of lactulose. Ammonia trending up. Resume p.o. lactulose and rifaximin as patient alert follows with GI in [place]. # Hypertension: Resume home meds. Monitor and titrate. # CHFpEF: Echo 11/2019 showing EF 65-70% grade 2 LV diastolic dysfunction. C/w spironoloactone, carvediolol, bumetanide, losartan. # Depression and anxiety: resume escitalopram. # Type 2 DM: A1c 9.1, lipid panel. Per records, uncontrolled. ISS and FSBS before meals and at bedtime is patient now eating takes levemir 15 units SC at night. # Diabetic peripheral neuropathy: Continue home meds # GERD: continue protonix # Asthma: albuterol PRN # Falls at home: Uses walker at home. PT/OT. # Disposition: Social work to please assist with possible placment. Unable to take care of herself at home or take her medications. # DVT prophylaxis: Lovenox Dispo: pending clinical improvement. VS, I&O, 24H, Fishbone Vital Signs/I&O Vital Signs Date Time Temp Pulse Resp B/P (MAP) Pulse Ox O2 Delivery O2 Flow Rate FiO2 02/24/21 09:09 67 134/63 02/24/21 08:00 98.0 20 85 Room Air I&O- Last 24 Hours up to 6 AM 02/24/21 06:00 Intake Total 800 ml Output Total 1600 ml Balance -800 ml Laboratory Data 24H LABS Laboratory Tests 2 02/23/21 12:03: Immature Granulocyte % (Auto) 0.3, Neutrophils (%) (Auto) 67.3H, Lymphocytes (%) (Auto) 22.5L, Monocytes (%) (Auto) 8.3H, Eosinophils (%) (Auto) 1.3, Basophils (%) (Auto) 0.3, Neutrophils # (Auto) 2.5, Lymphocytes # (Auto) 0.8L, Monocytes # (Auto) 0.3, Eosinophils # (Auto) 0.1, Basophils # (Auto) 0.0, Nucleated Red Blood Cells % (auto) 0.0, Prothrombin Time 14.0, Prothromb Time International Ratio 1.04, Anion Gap 5L, Glomerular Filtration Rate 56.3, Calcium Level 8.6, Total Bilirubin 0.8, Direct Bilirubin 0.3H, Aspartate Amino Transf (AST/SGOT) 41H, Alanine Aminotransferase (ALT/SGPT) 33, Alkaline Phosphatase 130H, Ammonia 106H, Total Creatine Kinase 565H, Creatine Kinase MB 22.4H, Creatine Kinase MB Relative Index 3.96, Troponin I < 0.02, Total Protein 6.8, Albumin 3.1L, Albumin/Globulin Ratio 0.8L, Coronavirus (COVID-19)(PCR) NEGATIVE, Influenza Type A (RT-PCR) NEGATIVE, Influenza Type B (RT-PCR) NEGATIVE, Respiratory Syncytial Virus (PCR) NEGATIVE 02/23/21 17:24: Bedside Glucose (Misc Panel) 189H 02/23/21 20:20: Bedside Glucose (Misc Panel) 231H 02/24/21 05:49: Immature Granulocyte % (Auto) 0.3, Neutrophils (%) (Auto) 47.9, Lymphocytes (%) (Auto) 40.1, Monocytes (%) (Auto) 8.0, Eosinophils (%) (Auto) 2.7, Basophils (%) (Auto) 1.0, Neutrophils # (Auto) 1.4L, Lymphocytes # (Auto) 1.2L, Monocytes # (Auto) 0.2, Eosinophils # (Auto) 0.1, Basophils # (Auto) 0.0, Nucleated Red Blood Cells % (auto) 0.0, Anion Gap 5L, Glomerular Filtration Rate 49.8L, Calcium Level 7.9L, Total Bilirubin 0.5, Aspartate Amino Transf (AST/SGOT) 84H, Alanine Aminotransferase (ALT/SGPT) 38, Alkaline Phosphatase 114, Ammonia 154H, Total Creatine Kinase 1514#H, Total Protein 6.0L, Albumin 2.5L, Albumin/Globulin Ratio 0.7L, Estimated Mean Plasma Glucose 214H, Hemoglobin A1c 9.1, Magnesium Level 2.0 02/24/21 11:45: Bedside Glucose (Misc Panel) 255H CBC/BMP Laboratory Tests 02/23/21 12:03 02/24/21 05:49 MI GRAYSON MD Feb 24, 2021 12:04
--- NOTE | 2021-02-24 12:58 | REP ---
INDICATION: r/o femur fx. COMPARISON: None. TECHNIQUE: Two AP views of the pelvis FINDINGS: Osseous structures demonstrate age-related changes primarily involving the bilateral hips (right greater than left). No obvious acute fracture or dislocation. IMPRESSION: No obvious acute fracture or dislocation. <Electronically signed by Edward Schmidt > 02/24/21 [id number]
--- NOTE | 2021-02-24 12:59 | REP ---
INDICATION: r/o femur fx COMPARISON: None. TECHNIQUE: AP and frog-lateral views of the right femur. FINDINGS: Mild degenerative changes at the hip and knee noted. No evidence for acute fracture or dislocation. No subcutaneous emphysema or foreign body. IMPRESSION: Degenerative changes. No acute fracture or dislocation appreciated. <Electronically signed by Edward Schmidt > 02/24/21 [id number]
[2021-02-24 16:00] VITALS: BP 124/60
[2021-02-24 20:00] VITALS: BP 117/58
[2021-02-24] MEDS: TOPIRAMATE (TopAMAX) 25 MG TAB PO SCH (20:25)
[2021-02-24] MEDS: LOSARTAN 25 MG TAB PO SCH (20:26)
[2021-02-25] VITALS: BP 111/56
[2021-02-25 04:00] VITALS: BP 115/55
[2021-02-25 05:38] LABS: BASO % 1.3 % (0.0-1.0); EOS # 0.1 10^3/uL (0.0-0.5); EOS % 3.9 % (0.0-3.0); HEMATOCRIT 27.6 % (36.0-47.0); HEMOGLOBIN 9.8 g/dl (12.0-15.5); LYMPH # 1.6 10^3/uL (1.5-5.0); LYMPH % 52.6 % (24.0-44.0); MEAN CORPUSCULAR HEMOGLOBIN 33.7 pg (27.0-33.0); MEAN CORPUSCULAR HGB CONC 35.5 g/dl (32.0-36.5); MEAN CORPUSCULAR VOLUME 94.8 fl (80.0-96.0); MONO # 0.2 10^3/uL (0.0-0.8); MONO % 7.4 % (2.0-8.0); NEUTROPHILS # 1.1 10^3/uL (1.5-8.5); NEUTROPHILS % 33.8 % (36.0-66.0); RED BLOOD COUNT 2.91 10^6/uL (4.00-5.40); WHITE BLOOD COUNT 3.1 10^3/uL (4.0-10.0)
[2021-02-25 05:52] LABS: PLATELET COUNT, AUTOMATED 95 10^3/uL (150-450)
[2021-02-25 06:02] LABS: ALBUMIN 2.5 GM/DL (3.2-5.2); BILIRUBIN,TOTAL 0.6 MG/DL (0.2-1.0); CALCIUM LEVEL 8.4 MG/DL (8.5-10.1); CHOLESTEROL RISK RATIO 1.984 (<5); CREATININE FOR GFR 1.05 MG/DL (0.55-1.30); GLOMERULAR FILTRATION RATE 58.1 (>51); POTASSIUM SERUM 4.2 MEQ/L (3.5-5.1); TOTAL PROTEIN 6.5 GM/DL (6.4-8.2)
[2021-02-25] MEDS: HEPARIN SOD (PORCINE) 5000UNITS/ML 1ML VIAL/SYRINGE SC SCH ×3 (06:19→21:33)
[2021-02-25 08:00] VITALS: BP 108/53
[2021-02-25] MEDS: HumaLOG INSULIN (NovoLOG) PER UNIT SC SCH ×7 (09:33→20:14)
[2021-02-25] MEDS: LACTULOSE 20 GM/30 ML SYRUP UD PO SCH ×3 (09:35→20:11)
[2021-02-25] MEDS: OMEPRAZOLE 20 MG CAP PO SCH (09:35)
[2021-02-25] MEDS: DICYCLOMINE 10 MG CAP PO SCH ×4 (09:35→20:11)
[2021-02-25] MEDS: DOCUSATE SODIUM 100MG CAPSULE PO SCH ×2 (09:35→20:10)
[2021-02-25] MEDS: GABAPENTIN 300 MG CAP PO SCH ×3 (09:35→20:09)
[2021-02-25] MEDS: FERROUS SULFATE 325MG TAB PO SCH (09:35)
[2021-02-25] MEDS: SERTRALINE HCL 25 MG TABLET PO SCH (09:35)
[2021-02-25] MEDS: ESCITALOPRAM OXALATE 5MG TABLET (LEXAPRO) PO SCH (09:37)
[2021-02-25] MEDS: ASPIRIN 81MG ENTERIC TABLET PO SCH (09:37)
[2021-02-25] MEDS: rOPINIRole 1MG TAB PO SCH ×2 (09:37→20:09)
[2021-02-25] MEDS: CARVedilol 12.5 MG TAB PO SCH ×3 (09:37→20:23)
[2021-02-25] MEDS: SPIRONOLACTONE 50 MG TAB PO SCH (09:37)
[2021-02-25] MEDS: BUMETANIDE 1 MG TAB PO SCH ×2 (10:51→20:09)
[2021-02-25 12:00] VITALS: BP 124/60
--- NOTE | 2021-02-25 13:09 | IPNPDOC ---
Date Seen The patient was seen on 02/25/21. Progress Note SUBJECTIVE: Patient was seen and examined at bedside. She is alert oriented x3. She states that her right flank and right hip pain have improved however now she complains of left hip flank pain states that her right chest wall and right hip pain have resolved. She complains of left flank pain rating down to her groin. She denies any dysuria fevers chills urinary frequency. She has no ches t pain shortness breath palpitations nausea vomiting diarrhea. OBJECTIVE VITAL SIGNS: please see below General: Patient is obtunded briefly opens her eyes to voice. HEENT: PERRLA, EOMI, sclerae clear Neck: supple, normal ROM, no JVD Respiratory: lungs CTAB, no wheeze, no rales, no crackles CVS: RRR, normal S1, S2, no murmurs Abdo: soft, no masses, no hepatosplenomegaly, BS+, no rebound tenderness Extremities: no edema, pulses 2+ MSK: no joint deformities, normal ROM. Patient has paced palpable pain to palpation of the right hip Neuro: no focal neuro deficits, moving all 4 extremities, CN2-12 intact. Strength 5/5 in all 4 extremities. No nystagmus. Psych: calm, cooperative, AAO x 3 LABORATORY DATA, IMAGING STUDIES, MICROBIOLOGY: Please see below. DVT prophylaxis ordered?: Sudhir ASSESSMENT: 55-year-old female with past medical history of Ponce cirrhosis, recurrent admissions for hepatic encephalopathy, HFpEF, hypertension, depression, type 2 diabetes, anxiety brought to the ER by EMS after she was discovered on the floor in her bathroom this morning. Patient has a history of noncompliance with lactulose and rifaximin . PLAN: # Ponce cirrhosis: Continue home dose of lactulose. Ammonia trending up. Resume p.o. lactulose and rifaximin as patient alert follows with GI in [place]. #L flank pain: likely 2/2 UTI. UA+ nitrite. Started on ceftriaxone. Urine culture pending. # Hypertension: Resume home meds. Monitor and titrate. # CHFpEF: Echo 11/2019 showing EF 65-70% grade 2 LV diastolic dysfunction. C/w spironoloactone, carvediolol, bumetanide, losartan. # Depression and anxiety: resume escitalopram. # Type 2 DM: A1c 9.1, lipid panel. Per records, uncontrolled. ISS and FSBS before meals and at bedtime. Increased levemir from 15 units qam to 25 units qam due to persistent hyperglycemia. #R hip pain: resolved. Likely contusion from fall. Hip XR/Femur XR negative for fx #R chest wall pain: resolved. No rib fx on CT chest. Likely contusion. #Rhabdomyolysis: CK peak at 1500. Trending down with PO fluids. # Diabetic peripheral neuropathy: Continue home meds # GERD: continue protonix # Asthma: albuterol PRN # Falls at home: Uses walker at home. PT/OT. # Disposition: Social work to please assist with possible placment. Unable to take care of herself at home or take her medications. # DVT prophylaxis: Lovenox Dispo: pending clinical improvement. VS, I&O, 24H, Fishbone Vital Signs/I&O Vital Signs Date Time Temp Pulse Resp B/P (MAP) Pulse Ox O2 Delivery O2 Flow Rate FiO2 02/25/21 09:37 71 108/53 02/25/21 08:00 96.8 20 100 Room Air I&O- Last 24 Hours up to 6 AM 02/25/21 06:00 Intake Total 1200 ml Output Total 0 ml Balance 1200 ml Laboratory Data 24H LABS Laboratory Tests 2 02/24/21 16:43: Bedside Glucose (Misc Panel) 202H 02/24/21 20:22: Bedside Glucose (Misc Panel) 203H 02/25/21 05:20: Immature Granulocyte % (Auto) 1.0, Neutrophils (%) (Auto) 33.8L, Lymphocytes (%) (Auto) 52.6H, Monocytes (%) (Auto) 7.4, Eosinophils (%) (Auto) 3.9H, Basophils (%) (Auto) 1.3H, Neutrophils # (Auto) 1.1L, Lymphocytes # (Auto) 1.6, Monocytes # (Auto) 0.2, Eosinophils # (Auto) 0.1, Basophils # (Auto) 0.0, Nucleated Red Blood Cells % (auto) 0.0, Immature Platelet Fraction 1.2, Anion Gap 10, Glomerular Filtration Rate 58.1, Calcium Level 8.4L, Magnesium Level 2.0, Total Bilirubin 0.6, Aspartate Amino Transf (AST/SGOT) 84H, Alanine Aminotransferase (ALT/SGPT) 42, Alkaline Phosphatase 115, Total Creatine Kinase 1343H, Total Protein 6.5, Albumin 2.5L, Albumin/Globulin Ratio 0.6L, Triglycerides Level 64, Total Cholesterol 125, LDL Cholesterol 49, Non-HDL Cholesterol (LDL + VLDL) 62, Total HDL Cholesterol 63, Cholesterol/HDL Ratio 1.984 02/25/21 10:27: Urine Color YELLOW, Urine Appearance HAZY, Urine pH 5.0, Urine Specific Nichols 1.009, Urine Protein NEGATIVE, Urine Glucose (UA) NEGATIVE, Urine Ketones NEGATIVE, Urine Blood 1+H, Urine Nitrite POSITIVEH, Urine Bilirubin NEGATIVE, Urine Urobilinogen 0.2, Urine Leukocyte Esterase NEGATIVE, Urine WBC (Auto) 1, Urine RBC (Auto) 1, Urine Hyaline Casts (Auto) 0, Urine Bacteria (Auto) 1+H, Urine Squamous Epithelial Cells 0, Urine Mucus (Auto) SMALL, Urine Sperm (Auto) 02/25/21 11:38: Bedside Glucose (Misc Panel) 234H CBC/BMP Laboratory Tests 02/25/21 05:20 Microbiology Microbiology 02/25/21 Urine Culture, Received Pending MI GRAYSON MD Feb 25, 2021 13:09
[2021-02-25] MEDS: cefTRIAXone SOD 1 GM in D5W MINI-BAG PLUS 50 ML IV SCH (13:42)
[2021-02-25 16:00] VITALS: BP 100/55
[2021-02-25 20:00] VITALS: BP 91/45
[2021-02-25] MEDS: TOPIRAMATE (TopAMAX) 25 MG TAB PO SCH (20:09)
[2021-02-25] MEDS: LOSARTAN 25 MG TAB PO SCH ×2 (20:11→20:23)
[2021-02-26] VITALS: BP 134/63
[2021-02-26] MEDS: HEPARIN SOD (PORCINE) 5000UNITS/ML 1ML VIAL/SYRINGE SC SCH ×3 (05:27→21:17)
[2021-02-26 06:31] LABS: BASO % 1.1 % (0.0-1.0); EOS # 0.1 10^3/uL (0.0-0.5); EOS % 4.6 % (0.0-3.0); HEMATOCRIT 28.7 % (36.0-47.0); LYMPH # 1.3 10^3/uL (1.5-5.0); MEAN CORPUSCULAR HEMOGLOBIN 33.2 pg (27.0-33.0); MEAN CORPUSCULAR HGB CONC 34.8 g/dl (32.0-36.5); MEAN CORPUSCULAR VOLUME 95.3 fl (80.0-96.0); MONO # 0.2 10^3/uL (0.0-0.8); NEUTROPHILS % 36.9 % (36.0-66.0); PLATELET COUNT, AUTOMATED 106 10^3/uL (150-450); RED BLOOD COUNT 3.01 10^6/uL (4.00-5.40); WHITE BLOOD COUNT 2.6 10^3/uL (4.0-10.0)
[2021-02-26 06:58] LABS: ALBUMIN 2.7 GM/DL (3.2-5.2); ALT/SGPT 44 U/L (12-78); BILIRUBIN,TOTAL 0.5 MG/DL (0.2-1.0); BLOOD UREA NITROGEN 39 MG/DL (7-18); CALCIUM LEVEL 8.8 MG/DL (8.5-10.1); CARBON DIOXIDE LEVEL 25 MEQ/L (21-32); CHLORIDE LEVEL 113 MEQ/L (98-107); GLOMERULAR FILTRATION RATE > 60.0 (>51); GLUCOSE, FASTING 205 MG/DL (70-100); MAGNESIUM LEVEL 2.1 MG/DL (1.8-2.4); SODIUM LEVEL 144 MEQ/L (136-145); TOTAL PROTEIN 6.4 GM/DL (6.4-8.2)
[2021-02-26 08:00] VITALS: BP 125/60
[2021-02-26] MEDS: DICYCLOMINE 10 MG CAP PO SCH ×4 (08:20→20:50)
[2021-02-26] MEDS: ASPIRIN 81MG ENTERIC TABLET PO SCH (08:20)
[2021-02-26] MEDS: BUMETANIDE 1 MG TAB PO SCH ×2 (08:20→20:52)
[2021-02-26] MEDS: SERTRALINE HCL 25 MG TABLET PO SCH (08:20)
[2021-02-26] MEDS: rOPINIRole 1MG TAB PO SCH ×2 (08:21→20:52)
[2021-02-26] MEDS: OMEPRAZOLE 20 MG CAP PO SCH (08:21)
[2021-02-26] MEDS: DOCUSATE SODIUM 100MG CAPSULE PO SCH ×2 (08:21→20:50)
[2021-02-26] MEDS: SPIRONOLACTONE 50 MG TAB PO SCH (08:21)
[2021-02-26] MEDS: CARVedilol 12.5 MG TAB PO SCH ×2 (08:21→20:53)
[2021-02-26] MEDS: GABAPENTIN 300 MG CAP PO SCH ×2 (08:21→16:29)
[2021-02-26] MEDS: FERROUS SULFATE 325MG TAB PO SCH (08:21)
[2021-02-26] MEDS: ESCITALOPRAM OXALATE 5MG TABLET (LEXAPRO) PO SCH (08:21)
[2021-02-26] MEDS: HumaLOG INSULIN (NovoLOG) PER UNIT SC SCH ×7 (08:23→20:55)
[2021-02-26] MEDS: LACTULOSE 20 GM/30 ML SYRUP UD PO SCH ×3 (08:29→20:52)
[2021-02-26 14:00] VITALS: BP 125/59
[2021-02-26] MEDS: cefTRIAXone SOD 1 GM in D5W MINI-BAG PLUS 50 ML IV SCH (14:28)
[2021-02-26 16:00] VITALS: BP 125/59
[2021-02-26] MEDS: traMADol 50 MG TAB PO PRN (17:48)
--- NOTE | 2021-02-26 18:46 | IPNPDOC ---
Text Note Date of Service The patient was seen on 02/26/21. NOTE Subjective: No new acute events overnight. Patient alert oriented and awake in the morning Objective: GENERAL APPEARANCE: Obese female HEENT: no scleral icterus, no JVD, EOMI CARDIOVASCULAR: S1S2 LUNGS: CTA ABDOMEN: soft & not tender w palpation, obese MUSCULOSKELETAL: no cyanosis, no swelling INTEGUMENT: no generalized pallor NEUROLOGICAL: cranial nerve function from 2-12 intact, follows commands, speech not dysarthric Assessment and plan Patient is 55-year-old female with past medical history of Ponce cirrhosis, recurrent admissions for hepatic encephalopathy, HFpEF, hypertension, depression, type 2 diabetes, anxiety brought to the ER by EMS after she was discovered on the floor in her bathroom this morning. Patient has a history of noncompliance with lactulose and rifaximin Cirrhosis/hepatic encephalopathy Secondary to Ponce. Encephalopathy today resolved. Gabapentin on hold Continue to monitor ammonia level Continue lactulose and rifaximin I will proceed with CT abdomen pelvis to rule out ascites Continue Bumex, spironolactone UTI Continue ceftriaxone Hypertension Continue home meds Diastolic CHF Echo 11/2019 showing EF 65-70% grade 2 LV diastolic dysfunction Continue home meds Depression/anxiety Continue home meds Type 2 diabetes Poorly controlled HbA1c 9.1 Insulin sliding scale I stop lispro every morning and changed to detemir 30 units twice daily Right hip pain Resolved imaging study negative for fracture Rhabdomyolysis Continue to monitor CPK Diabetic peripheral neuropathy Continue home meds GERD Continue PPI Asthma: Not in acute exacerbation albuterol PRN Falls at home: Uses walker at home. PT/OT Deconditioning PT/OT evaluation VS,Rosemary, I+O VS, Fishbone, I+O Laboratory Tests 02/26/21 06:07 Vital Signs Date Time Temp Pulse Resp B/P (MAP) Pulse Ox O2 Delivery O2 Flow Rate FiO2 02/26/21 17:48 20 Room Air 02/26/21 14:00 97.0 64 125/59 (81) 98 I&O- Last 24 Hours up to 6 AM 02/26/21 06:00 Intake Total 2450 ml Output Total 2400 ml Balance 50 ml VIPUL KOENIG DO Feb 26, 2021 18:46
[2021-02-26 20:00] VITALS: BP 140/62
[2021-02-26] MEDS: LEVEMIR (INSULIN DETEMIR) 1 UNITS/0.01ML SC SCH (20:49)
[2021-02-26] MEDS: KETOROLAC 30 MG/ML 1ML VIAL IV PRN (20:50)
[2021-02-26] MEDS: LOSARTAN 25 MG TAB PO SCH (20:51)
[2021-02-26] MEDS: TOPIRAMATE (TopAMAX) 25 MG TAB PO SCH (20:59)
[2021-02-26] MEDS ORDERED: LEVEMIR (INSULIN DETEMIR) 1 UNITS/0.01ML SC SCH (21:00)
--- NOTE | 2021-02-26 21:01 | REPVR ---
PROCEDURE INFORMATION: Exam: CT Abdomen And Pelvis Without Contrast Exam date and time: 02/26/2021 7:45 PM Age: 55 years old Clinical indication: Other: Ascites TECHNIQUE: Imaging protocol: Computed tomography of the abdomen and pelvis without contrast. Radiation optimization: All CT scans at this facility use at least one of these dose optimization techniques: automated exposure control; mA and/or kV adjustment per patient size (includes targeted exams where dose is matched to clinical indication); or iterative reconstruction. COMPARISON: CT ABD PELVIS W/O CONTRAST 05/12/2019 2:38 PM FINDINGS: Lungs: Clear appearing lung bases. Liver: There is slight lobulation of the margins of the liver. Gallbladder and bile ducts: There are surgical clips at the gallbladder fossa and the patient is post cholecystectomy. Normal size common bile duct. Pancreas: Normal size pancreas. Spleen: Normal appearing spleen. Adrenal glands: Normal adrenal glands. Kidneys and ureters: Calcification of the right and left kidney is probably vascular calcification. Stomach and bowel: The cecum is in the right pelvis and there is no evidence of inflammation. Intraperitoneal space: There is no evidence of pneumoperitoneum. There is no evidence of free fluid within the abdomen and no evidence of ascites. Vasculature: The aorta is normal in size. Lymph nodes: There is no evidence of lymphadenopathy. Urinary bladder: The normal urinary bladder. Reproductive: Normal appearing uterus. Bones/joints: There is moderate scoliosis lumbar spine convexity to the left. Soft tissues: There is no evidence of soft tissue abnormality. There is a small umbilical hernia with protrusion of mesenteric fat measuring approximately 3 cm x 7 cm. IMPRESSION: 1. There is no evidence of ascites. 2. Umbilical hernia with protrusion of only mesenteric fat. Electronically signed by: Castro Love On 02/26/2021 21:00:57 PM
[2021-02-27] MEDS: traMADol 50 MG TAB PO PRN (01:48)
[2021-02-27 04:00] VITALS: BP 116/58
[2021-02-27] MEDS: HEPARIN SOD (PORCINE) 5000UNITS/ML 1ML VIAL/SYRINGE SC SCH (05:05)
[2021-02-27 05:24] LABS: BASO % 0.9 % (0.0-1.0); EOS # 0.1 10^3/uL (0.0-0.5); EOS % 4.4 % (0.0-3.0); HEMATOCRIT 29.9 % (36.0-47.0); HEMOGLOBIN 10.3 g/dl (12.0-15.5); LYMPH # 1.6 10^3/uL (1.5-5.0); LYMPH % 48.7 % (24.0-44.0); MEAN CORPUSCULAR HEMOGLOBIN 33.3 pg (27.0-33.0); MEAN CORPUSCULAR HGB CONC 34.4 g/dl (32.0-36.5); MEAN CORPUSCULAR VOLUME 96.8 fl (80.0-96.0); MONO # 0.2 10^3/uL (0.0-0.8); MONO % 7.2 % (2.0-8.0); NEUTROPHILS # 1.2 10^3/uL (1.5-8.5); NEUTROPHILS % 38.5 % (36.0-66.0); PLATELET COUNT, AUTOMATED 116 10^3/uL (150-450); RED BLOOD COUNT 3.09 10^6/uL (4.00-5.40); WHITE BLOOD COUNT 3.2 10^3/uL (4.0-10.0)
[2021-02-27 05:54] LABS: ALBUMIN 2.7 GM/DL (3.2-5.2); BILIRUBIN,TOTAL 0.4 MG/DL (0.2-1.0); CREATININE FOR GFR 1.07 MG/DL (0.55-1.30); GLOMERULAR FILTRATION RATE 56.9 (>51); MAGNESIUM LEVEL 2.1 MG/DL (1.8-2.4); TOTAL PROTEIN 6.7 GM/DL (6.4-8.2)
[2021-02-27] MEDS ORDERED: LevoFLOXacin 750 MG TABLET PO SCH (06:00)
[2021-02-27 07:51] VITALS: BP 103/50
[2021-02-27] MEDS: OMEPRAZOLE 20 MG CAP PO SCH (08:35)
[2021-02-27] MEDS: SERTRALINE HCL 25 MG TABLET PO SCH (08:35)
[2021-02-27] MEDS: FERROUS SULFATE 325MG TAB PO SCH (08:35)
[2021-02-27] MEDS: SPIRONOLACTONE 50 MG TAB PO SCH (08:35)
[2021-02-27] MEDS: DOCUSATE SODIUM 100MG CAPSULE PO SCH (08:35)
[2021-02-27] MEDS: ASPIRIN 81MG ENTERIC TABLET PO SCH (08:35)
[2021-02-27] MEDS: BUMETANIDE 1 MG TAB PO SCH (08:36)
[2021-02-27] MEDS: ESCITALOPRAM OXALATE 5MG TABLET (LEXAPRO) PO SCH (08:36)
[2021-02-27] MEDS: DICYCLOMINE 10 MG CAP PO SCH ×2 (08:36→12:10)
[2021-02-27] MEDS: rOPINIRole 1MG TAB PO SCH (08:36)
[2021-02-27 08:37] VITALS: BP 103/50
[2021-02-27] MEDS: LACTULOSE 20 GM/30 ML SYRUP UD PO SCH (08:37)
[2021-02-27] MEDS: CARVedilol 12.5 MG TAB PO SCH (08:37)
[2021-02-27] MEDS: HumaLOG INSULIN (NovoLOG) PER UNIT SC SCH ×2 (08:38→12:10)
[2021-02-27] MEDS: LEVEMIR (INSULIN DETEMIR) 1 UNITS/0.01ML SC SCH (08:38)
[2021-02-27] MEDS ORDERED: SLF 3 ML SYR IV PRN (09:20)
[2021-02-27] MEDS ORDERED: GABA-282 PO ×2 (11:57→13:39)
[2021-02-27] MEDS ORDERED: LACT20EL PO ×2 (11:57→13:39)
[2021-02-27] MEDS ORDERED: LEVO750T13 PO ×2 (11:57→13:39)
[2021-02-27] MEDS ORDERED: XIFA550T PO (13:40)
[2021-02-27] MEDS ORDERED: SLF 3 ML SYR IV SCH (14:00)
--- NOTE | 2021-02-27 20:02 | DS.PDOC ---
Discharge Summary General Date of Admission Feb 23, 2021 at 14:11 Date of Discharge 02/27/21 Discharge Summary PROCEDURES PERFORMED DURING STAY: [None]. ADMITTING DIAGNOSES: UTI Cirrhosis/hepatic encephalopathy Hypertension Diastolic CHF Type 2 diabetes Depression/anxiety Right hip pain Rhabdomyolysis GERD Asthma: Deconditioning Diabetic peripheral neuropathy Falls at home DISCHARGE DIAGNOSES: UTI Cirrhosis/hepatic encephalopathy Hypertension Diastolic CHF Type 2 diabetes Depression/anxiety Right hip pain Rhabdomyolysis GERD Asthma: Deconditioning Diabetic peripheral neuropathy Falls at home COMPLICATIONS/CHIEF COMPLAINT: Hepatic Enephalopathy. HISTORY OF PRESENT ILLNESS: Mrs. Baldwin is a 55-year-old female with past medical history of Ponce cirrhosis, recurrent admissions for hepatic encephalopathy, HFpEF, hypertension, depression, type 2 diabetes, anxiety brought to the ER by EMS after she was discovered on the floor in her bathroom this morning. Patient has a history of noncompliance with lactulose and rifaximin. In the ER CT scan of the head neck showed no acute abnormalities. At the time my examination patient is severely obtunded and is unable to provide any history she briefly opens her eyes and quickly shuts them again. Patient will be admitted to the hospitalist service to the PCU floor for the management of hepatic encephalopathy. The past medical history has been obtained from chart review HOSPITAL COURSE: During the hospital stay the following issue addressed Cirrhosis/hepatic encephalopathy Secondary to Ponce. Encephalopathy resolved. Patient was alert, awake and oriented Gabapentin on hold ammonia level improved after lactulose Patient received increased dose of lactulose and rifaximin Patient received diuresis with Bumex, spironolactone UTI Patient received treatment with ceftriaxone Hypertension Continue home meds Diastolic CHF Echo 11/2019 showing EF 65-70% grade 2 LV diastolic dysfunction Patient received treatment with home meds Depression/anxiety Continue home meds Type 2 diabetes Poorly controlled HbA1c 9.1 Insulin sliding scale I stop lispro every morning and changed to detemir 30 units twice daily Patient will need close follow-up with PCP to adjust level of insulin Right hip pain Resolved imaging study negative for fracture Rhabdomyolysis CPK trended down Diabetic peripheral neuropathy Continue home meds GERD Continue PPI DISCHARGE MEDICATIONS: Please see below. ALLERGIES: Please see below. PHYSICAL EXAMINATION ON DISCHARGE: VITAL SIGNS: Please see below. GENERAL APPEARANCE: Obese female HEENT: no scleral icterus, no JVD, EOMI CARDIOVASCULAR: S1S2 LUNGS: CTA ABDOMEN: soft & not tender w palpation, obese MUSCULOSKELETAL: no cyanosis, no swelling INTEGUMENT: no generalized pallor NEUROLOGICAL: cranial nerve function from 2-12 intact, follows commands, speech not dysarthric LABORATORY DATA: Please see below. IMAGING: [facility] NAME: WILLEM BALDWIN DATE OF : 1965 BUSINESS NUMBER: [id number] AGE: 55 SEX: F REPORT #: [id number] ROOM: [facility] TECHNOLOGIST: SARA DOCTOR: VIPUL KOENIG DO Ordered for Date&Time: 02/26/211837 cc: [~ rep ct ivnm] Service Date&Time: 02/26/211944 This report is in Signed status. Interpretation performed by [facility]. Thank you for having your radiology procedures performed at [facility] RADIOLOGY REPORT Date&Time printed: [~ rep prt dt last] [~ rep prt tm last] Page 2 of 2 [place] [id number] RADIOLOGY REPORT This report is in Signed status. Interpretation performed by [facility]. Thank you for having your radiology procedures performed at [facility] RADIOLOGY REPORT Date&Time printed: [~ rep prt dt last] [~ rep prt tm last] Page 1 of 2 Exam: CT Abdomen And Pelvis Without Contrast Exam date and time: 02/26/2021 7:45 PM Age: 55 years old Clinical indication: Other: Ascites TECHNIQUE: Imaging protocol: Computed tomography of the abdomen and pelvis without contrast. Radiation optimization: All CT scans at this facility use at least one of these dose optimization techniques: automated exposure control; mA and/or kV adjustment per patient size (includes targeted exams where dose is matched to clinical indication); or iterative reconstruction. COMPARISON: CT ABD PELVIS W/O CONTRAST 05/12/2019 2:38 PM FINDINGS: Lungs: Clear appearing lung bases. Liver: There is slight lobulation of the margins of the liver. Gallbladder and bile ducts: There are surgical clips at the gallbladder fossa and the patient is post cholecystectomy. Normal size common bile duct. Pancreas: Normal size pancreas. Spleen: Normal appearing spleen. Adrenal glands: Normal adrenal glands. Kidneys and ureters: Calcification of the right and left kidney is probably vascular calcification. Stomach and bowel: The cecum is in the right pelvis and there is no evidence of inflammation. Intraperitoneal space: There is no evidence of pneumoperitoneum. There is no evidence of free fluid within the abdomen and no evidence of ascites. Vasculature: The aorta is normal in size. Lymph nodes: There is no evidence of lymphadenopathy. Urinary bladder: The normal urinary bladder. Reproductive: Normal appearing uterus. Bones/joints: There is moderate scoliosis lumbar spine convexity to the left. Soft tissues: There is no evidence of soft tissue abnormality. There is a small umbilical hernia with protrusion of mesenteric fat measuring approximately 3 cm x 7 cm. IMPRESSION: 1. There is no evidence of ascites. 2. Umbilical hernia with protrusion of only mesenteric fat. Electronically signed by: Castro Freeman On 02/26/2021 21:00:57 PM DD: CASTRO FREEMAN MD 02/26/211944 DT: VALERY 02/26/212099 DS: MARY 02/26/212099 [~ rep ct labl] PROGNOSIS: Guarded ACTIVITY: [As tolerated]. DIET: Cardiac DISPOSITION: 06 Home Health Service. ITEMS TO FOLLOWUP ON ON OUTPATIENT: Follow-up with GI team and PCP DISCHARGE CONDITION: [Stable]. TIME SPENT ON DISCHARGE: 40 minutes. Vital Signs/I&Os Vital Signs Date Time Temp Pulse Resp B/P (MAP) Pulse Ox O2 Delivery O2 Flow Rate FiO2 02/27/21 08:37 60 103/50 02/27/21 07:51 97.6 18 98 Room Air I&O- Last 24 Hours up to 6 AM 02/27/21 06:00 Intake Total 1790 ml Output Total 1100 ml Balance 690 ml Laboratory Data Labs 24H Laboratory Tests 2 02/26/21 20:33: Bedside Glucose (Misc Panel) 202H 02/27/21 05:03: Immature Granulocyte % (Auto) 0.3, Neutrophils (%) (Auto) 38.5, Lymphocytes (%) (Auto) 48.7H, Monocytes (%) (Auto) 7.2, Eosinophils (%) (Auto) 4.4H, Basophils (%) (Auto) 0.9, Neutrophils # (Auto) 1.2L, Lymphocytes # (Auto) 1.6, Monocytes # (Auto) 0.2, Eosinophils # (Auto) 0.1, Basophils # (Auto) 0.0, Nucleated Red Blood Cells % (auto) 0.0, Anion Gap 4L, Glomerular Filtration Rate 56.9, Calcium Level 9.0, Magnesium Level 2.1, Total Bilirubin 0.4, Aspartate Amino Transf (AST/SGOT) 60H, Alanine Aminotransferase (ALT/SGPT) 47, Alkaline Phosphatase 129H, Total Protein 6.7, Albumin 2.7L, Albumin/Globulin Ratio 0.7L 02/27/21 11:48: Bedside Glucose (Misc Panel) 237H CBC/BMP Laboratory Tests 02/27/21 05:03 FSBS Laboratory Tests Test 02/26/21 20:33 02/27/21 11:48 Range/Units Bedside Glucose (Misc Panel) 202 237 70-105 MG/DL Microbiology Microbiology 02/25/21 Urine Culture - Final, Complete Klebsiella Oxytoca Discharge Medications Scheduled Ammonium Lactate (Ammonium Lactate) 12% Lotion, 1 DOSE TOP DAILY, (Reported) Aspirin (Aspirin EC) 81 Mg Tabec, 81 MG PO DAILY, (Reported) Bumetanide (Bumetanide) 2 Mg Tab, 2 MG PO BID, (Reported) Carvedilol (Carvedilol) 25 Mg Tab, 25 MG PO BID, (Reported) Dicyclomine HCl (Dicyclomine HCl) 10 Mg Capsule, 10 MG PO QID, (Reported) 0800, 1200, 1700, 2000 Docusate Sodium (Docusate Sodium) 100 Mg Capsule, 100 MG PO BID, (Reported) Ergocalciferol (Vitamin D2) (Vitamin D2) 2,000 Unit Cap, 2,000 UNIT PO DAILY, (Reported) Escitalopram Oxalate (Lexapro) 5 Mg Tablet, 5 MG PO DAILY, (Reported) Ferrous Sulfate (Ferrous Sulfate) 325 Mg Tablet.dr, 325 MG PO DAILY, (Reported) Gabapentin (Gabapentin) 300 Mg Capsule, 100 MG PO TID Hydroxyzine HCl (Hydroxyzine HCl) 10 Mg Tablet, 20 MG PO QHS, (Reported) Insulin Glargine,Hum.rec.anlog (Semglee) 100 Unit/Ml Vial, 88 UNITS SC BID, (Reported) Insulin Lispro (Admelog) 100 Unit/Ml Inj, 15 UNITS SC AC, (Reported) Insulin Lispro (Admelog) 100 Unit/1 Ml Vial, 1 DOSE SC ACHS, (Reported) PER SLIDING SCALE Lactulose (Lactulose) 10 Gm/15 Ml Solution, 30 ML PO TID Levofloxacin (Levofloxacin) 750 Mg Tablet, 750 MG PO DAILY@06 Losartan Potassium (Losartan Potassium) 50 Mg Tablet, 25 MG PO QHS, (Reported) Omeprazole (Omeprazole) 20 Mg Cap, 20 MG PO DAILY, (Reported) Potassium Chloride (Potassium Chloride) 10 Meq Cap, 10 MEQ PO QHS, (Reported) Rifaximin (Xifaxan) 550 Mg Tab, 550 MG PO BID 0800, 1700 Ropinirole HCl (Ropinirole HCl) 4 Mg Tablet, 4 MG PO BID, (Reported) Sertraline HCl (Sertraline HCl) 50 Mg Tablet, 75 MG PO DAILY, (Reported) Spironolactone (Spironolactone) 50 Mg Tab, 50 MG PO DAILY, (Reported) Topiramate (Topiramate) 50 Mg Tablet, 50 MG PO QHS, (Reported) Scheduled PRN Albuterol Sulfate (Proair Hfa) 108 Mcg/Act Aer, 2 PUFF INH Q4H PRN for SHORTNESS OF BREATH, (Reported) Diclofenac Sodium (Diclofenac Sodium) 1% 100GM Gel..gram., 2 GM TOP QID PRN for PAIN, (Reported) APPLY TO KNEES Fluticasone Propionate (Fluticasone Propionate) 50 Mcg/Act Spr, 1 SPRAY NA DAILY PRN for NASAL CONGESTION, (Reported) Loratadine (Loratadine) 10 Mg Tablet, 10 MG PO QHS PRN for ALLERGY SYMPTOMS, (Reported) Meclizine HCl (Meclizine HCl) 25 Mg Tab, 25 MG PO TID PRN for VERTIGO/DIZZINESS, (Reported) Nystatin (Nystatin) 15 Gm Cream..g., 1 DOSE TOP BID PRN for RASH, (Reported) APPLY TO AREAS OF ABDOMEN Ondansetron HCl (Ondansetron HCl) 4 Mg Tablet, 4 MG PO TID PRN for NAUSEA OR VOMITING, (Reported) Miscellaneous Medications [Comments] , (Reported) MED LIST MADE WITH EXTERNAL MED HISTORY Allergies Coded Allergies: clindamycin (Verified Allergy, Intermediate, itching, 12/21/19) diltiazem (Verified Allergy, Intermediate, SWELLING IN HANDS, FEET AND LEGS, 12/21/19) metformin (Verified Allergy, Intermediate, RASH, 12/21/19) phenazopyridine (Verified Adverse Reaction, Intermediate, CAUSES BLEEDING, 12/21/19) lisinopril (Verified Adverse Reaction, Mild, COUGH, 12/21/19) rosiglitazone (Verified Adverse Reaction, Mild, WATER RETENTION, 12/21/19) VIPUL KOENIG DO Feb 27, 2021 20:02
== END 2021-02-27 14:15 | disposition home health service (06) ==
LOC: M ED 11:30 → EDBD 11:30 → M ED INP 14:11 → ENRESERV 14:40 → M PCU 16:00
PROVIDERS: ADMIT Family Medicine; ATTEND Internal Medicine
DX: K75.81 Nonalcoholic steatohepatitis (NASH) (principal); M62.82 Rhabdomyolysis; K72.90 Hepatic failure, unspecified without coma; I11.0 Hypertensive heart disease with heart failure; I50.32 Chronic diastolic (congestive) heart failure; E11.42 Type 2 diabetes mellitus with diabetic polyneuropathy; F41.9 Anxiety disorder, unspecified; F32.9 Major depressive disorder, single episode, unspecified; Z91.14 Patient's other noncompliance with medication regimen; K21.9 Gastro-esophageal reflux disease without esophagitis; J45.909 Unspecified asthma, uncomplicated; R29.6 Repeated falls; Z79.899 Other long term (current) drug therapy; Z79.82 Long term (current) use of aspirin; Z79.4 Long term (current) use of insulin; Z88.1 Allergy status to other antibiotic agents; Z88.8 Allergy status to other drugs, medicaments and biological substances; R07.89 Other chest pain; M25.551 Pain in right hip; N39.0 Urinary tract infection, site not specified; Z20.822 Contact with and (suspected) exposure to COVID-19

== ENCOUNTER 2021-05-14 15:19 | Inpatient (IN) | payer OTHER ==
[~2021-05-14] VITALS: Ht 182.9 cm; Wt 169.6 kg
[~2021-05-14 15:19] MED LIST changes: -CEFD1CAP8 PO; +CEFD300C41 PO; +COMMENTS; -CYMB60CA3 PO; +CYMB60CA4 PO; +DOXY-443 PO; -DOXY1CAP62 PO; +INSU100V8 SC; +LEVO750T13 PO; +LEXA5TAB13 PO; +LOSA25TA13 PO; -LOSA25TA14 PO; +LOSA50TA28 PO; -LOSA50TA88 PO; -MONT10TA10 PO; +MONT10TA97 PO; +POTA-149 PO; -POTA10TA16 PO
[2021-05-14] MEDS ORDERED: MORPHINE 2 MG/ML 1ML VIAL (J2270) IV ONE (16:05)
[2021-05-14 16:12] LABS: HEMATOCRIT 29.8 % (36.0-47.0); HEMOGLOBIN 10.1 g/dl (12.0-15.5); MEAN CORPUSCULAR HEMOGLOBIN 34.2 pg (27.0-33.0); MEAN CORPUSCULAR HGB CONC 33.9 g/dl (32.0-36.5); RED BLOOD COUNT 2.95 10^6/uL (4.00-5.40); WHITE BLOOD COUNT 2.5 10^3/uL (4.0-10.0)
[2021-05-14 16:18] LABS: PLATELET COUNT, AUTOMATED 91 10^3/uL (150-450)
[2021-05-14 16:55] LABS: ALBUMIN 2.7 GM/DL (3.2-5.2); ALT/SGPT 24 U/L (12-78); BILIRUBIN,DIRECT 0.2 MG/DL (0.0-0.2); BILIRUBIN,TOTAL 0.6 MG/DL (0.2-1.0); BLOOD UREA NITROGEN 50 MG/DL (7-18); CALCIUM LEVEL 9.2 MG/DL (8.5-10.1); CARBON DIOXIDE LEVEL 25 MEQ/L (21-32); CHLORIDE LEVEL 110 MEQ/L (98-107); CK-MB VALUE MASS 1.6 NG/ML (<3.6); CPK CREATINE PHOSPHOKINASE 68 U/L (26-192); CREATININE FOR GFR 1.26 MG/DL (0.55-1.30); GLOMERULAR FILTRATION RATE 47.1 (>51); GLUCOSE, FASTING 317 MG/DL (70-100); MB/CK RELATIVE INDEX 2.35 (< OR =4); POTASSIUM SERUM 4.4 MEQ/L (3.5-5.1); SODIUM LEVEL 141 MEQ/L (136-145); TOTAL PROTEIN 6.4 GM/DL (6.4-8.2); TROPONIN I < 0.02 NG/ML (< 0.10)
[2021-05-14 18:43] LABS: RSV AMPLIFICATION NEGATIVE (NEGATIVE)
[2021-05-14] MEDS ORDERED: LEXA1TAB PO (19:16)
[2021-05-14] MEDS ORDERED: ALBU83IN NEB (19:16)
[2021-05-14] MEDS ORDERED: NEUR300C PO (19:18)
[2021-05-14] MEDS ORDERED: LOSA25TA13 PO (19:23)
[2021-05-14] MEDS ORDERED: LACT20EL PO (19:23)
[2021-05-14] MEDS ORDERED: FURO20TA2 PO (19:28)
[2021-05-14] MEDS ORDERED: XIFA550T PO (19:28)
[2021-05-14] MEDS ORDERED: [UNRECOGNIZED DRUG - CODE] NARES (19:28)
[2021-05-14] MEDS ORDERED: POLY17PO18 PO (19:28)
[2021-05-14] MEDS ORDERED: MELA1TAB9 PO (19:28)
[2021-05-14] MEDS ORDERED: PROBCAP14 PO (19:28)
[2021-05-14] MEDS ORDERED: HOME MED LIST COMPLETE! XX SCH (19:30)
[2021-05-14] MEDS ORDERED: DEXTROSE 50% 50 ML SYRINGE IV PRN (19:55)
[2021-05-14] MEDS ORDERED: LORATADINE 10 MG TAB PO PRN (19:55)
[2021-05-14] MEDS ORDERED: GLUCOSE 4GM CHEW TABLET PO PRN (19:55)
[2021-05-14] MEDS ORDERED: GLUCAGON INJ 1MG VIAL SC PRN (19:55)
[2021-05-14] MEDS ORDERED: MECLIZINE 25 MG TABLET PO PRN (19:55)
[2021-05-14] MEDS ORDERED: ALBUTEROL 90 MCG/ACT 8GM HFA INHALER INH PRN (19:55)
[2021-05-14] MEDS ORDERED: ONDANSETRON 4 MG TAB PO PRN (19:55)
[2021-05-14] MEDS: MIRALAX *UNIT DOSE* 17GM PACKET PO SCH (21:48)
[2021-05-14] MEDS: DICYCLOMINE 10 MG CAP PO SCH (21:48)
[2021-05-14] MEDS: LACTULOSE 20 GM/30 ML SYRUP UD PO SCH ×2 (21:49→23:23)
[2021-05-14] MEDS: TOPIRAMATE (TopAMAX) 25 MG TAB PO SCH (21:50)
[2021-05-14] MEDS: FUROSEMIDE 40MG/4ML VIAL (J1940) IV SCH (21:50)
[2021-05-14] MEDS: POTASSIUM CHLORIDE 10MEQ SR TABLET PO SCH (21:50)
[2021-05-14] MEDS: HumaLOG INSULIN (NovoLOG) PER UNIT SC SCH (21:55)
[2021-05-14 22:42] VITALS: BP 129/56
[2021-05-14] MEDS: rOPINIRole 1MG TAB PO SCH (23:21)
[2021-05-15] MEDS: LACTULOSE 20 GM/30 ML SYRUP UD PO SCH ×7 (00:24→17:10)
[2021-05-15] MEDS: FUROSEMIDE 40MG/4ML VIAL (J1940) IV SCH ×6 (04:31→23:24)
[2021-05-15 06:00] VITALS: BP 126/59
[2021-05-15 06:37] LABS: HEMATOCRIT 30.2 % (36.0-47.0); HEMOGLOBIN 10.1 g/dl (12.0-15.5); MEAN CORPUSCULAR HEMOGLOBIN 34.2 pg (27.0-33.0); MEAN CORPUSCULAR HGB CONC 33.4 g/dl (32.0-36.5); MEAN CORPUSCULAR VOLUME 102.4 fl (80.0-96.0); RED BLOOD COUNT 2.95 10^6/uL (4.00-5.40)
[2021-05-15 06:56] LABS: PLATELET COUNT, AUTOMATED 81 10^3/uL (150-450)
[2021-05-15 07:14] LABS: ALBUMIN 2.7 GM/DL (3.2-5.2); BILIRUBIN,TOTAL 0.6 MG/DL (0.2-1.0); CALCIUM LEVEL 8.7 MG/DL (8.5-10.1); CREATININE FOR GFR 1.1 MG/DL (0.55-1.30); GLOMERULAR FILTRATION RATE 55.1 (>51); POTASSIUM SERUM 4.3 MEQ/L (3.5-5.1); TOTAL PROTEIN 6.3 GM/DL (6.4-8.2)
[2021-05-15] MEDS ORDERED: LACTULOSE 20 GM/30 ML SYRUP UD PO SCH (09:00)
[2021-05-15] MEDS: HumaLOG INSULIN (NovoLOG) PER UNIT SC SCH ×4 (10:51→20:43)
[2021-05-15] MEDS: ESCITALOPRAM OXALATE 10 MG TAB (LEXAPRO) PO SCH (10:52)
[2021-05-15] MEDS: MIRALAX *UNIT DOSE* 17GM PACKET PO SCH ×2 (10:52→20:35)
[2021-05-15] MEDS: SENOKOT S TAB PO SCH ×2 (10:52→20:35)
[2021-05-15] MEDS: rOPINIRole 1MG TAB PO SCH ×2 (10:52→20:42)
[2021-05-15] MEDS: OMEPRAZOLE 20MG CAP PO SCH (10:52)
[2021-05-15] MEDS: FERROUS SULFATE 325MG TAB PO SCH (10:52)
[2021-05-15] MEDS: SPIRONOLACTONE 50 MG TAB PO SCH (10:52)
[2021-05-15] MEDS: rifAXIMin 550 MG TAB (XIFAXAN) PO SCH ×2 (10:54→17:12)
[2021-05-15] MEDS: DICYCLOMINE 10 MG CAP PO SCH ×3 (10:54→20:42)
[2021-05-15] MEDS: LEVEMIR (INSULIN DETEMIR) 1 UNITS/0.01ML SC SCH ×2 (12:59→20:43)
[2021-05-15 14:00] VITALS: BP 119/65
[2021-05-15] MEDS ORDERED: MIDODRINE 5 MG TAB PO ONE (16:30)
[2021-05-15 17:17] VITALS: BP 110/64
[2021-05-15] MEDS ORDERED: MORPHINE 2 MG/ML 1ML VIAL (J2270) IV ONE (20:00)
[2021-05-15] MEDS: POTASSIUM CHLORIDE 10MEQ SR TABLET PO SCH (20:42)
[2021-05-15] MEDS: TOPIRAMATE (TopAMAX) 25 MG TAB PO SCH (20:42)
[2021-05-15 23:25] VITALS: BP 117/62
[2021-05-16] MEDS: ACETAMINOPHEN TAB 650MG DOSE (2X325MG) PO PRN ×2 (02:34→02:40)
[2021-05-16] MEDS: FUROSEMIDE 40MG/4ML VIAL (J1940) IV SCH ×2 (05:42→11:44)
[2021-05-16 06:00] VITALS: BP 120/62
[2021-05-16 06:43] LABS: HEMATOCRIT 28.1 % (36.0-47.0); HEMOGLOBIN 9.8 g/dl (12.0-15.5); MEAN CORPUSCULAR HEMOGLOBIN 35.1 pg (27.0-33.0); MEAN CORPUSCULAR HGB CONC 34.9 g/dl (32.0-36.5); MEAN CORPUSCULAR VOLUME 100.7 fl (80.0-96.0); RED BLOOD COUNT 2.79 10^6/uL (4.00-5.40); WHITE BLOOD COUNT 2.7 10^3/uL (4.0-10.0)
[2021-05-16 06:45] LABS: PLATELET COUNT, AUTOMATED 89 10^3/uL (150-450)
[2021-05-16 07:10] LABS: ALBUMIN 2.7 GM/DL (3.2-5.2); BILIRUBIN,TOTAL 0.7 MG/DL (0.2-1.0); CALCIUM LEVEL 8.8 MG/DL (8.5-10.1); CREATININE FOR GFR 1.1 MG/DL (0.55-1.30); GLOMERULAR FILTRATION RATE 55.1 (>51); POTASSIUM SERUM 3.7 MEQ/L (3.5-5.1); TOTAL PROTEIN 6.2 GM/DL (6.4-8.2)
[2021-05-16] MEDS: SENOKOT S TAB PO SCH (08:24)
[2021-05-16] MEDS: rOPINIRole 1MG TAB PO SCH (08:24)
[2021-05-16] MEDS: MIRALAX *UNIT DOSE* 17GM PACKET PO SCH (08:24)
[2021-05-16] MEDS: SPIRONOLACTONE 50 MG TAB PO SCH (08:25)
[2021-05-16] MEDS: LEVEMIR (INSULIN DETEMIR) 1 UNITS/0.01ML SC SCH (08:25)
[2021-05-16] MEDS: DICYCLOMINE 10 MG CAP PO SCH ×2 (08:25→12:28)
[2021-05-16] MEDS: rifAXIMin 550 MG TAB (XIFAXAN) PO SCH (08:26)
[2021-05-16] MEDS: HumaLOG INSULIN (NovoLOG) PER UNIT SC SCH ×2 (08:26→12:28)
[2021-05-16] MEDS: ESCITALOPRAM OXALATE 10 MG TAB (LEXAPRO) PO SCH (08:26)
[2021-05-16] MEDS: OMEPRAZOLE 20MG CAP PO SCH (08:26)
[2021-05-16] MEDS: FERROUS SULFATE 325MG TAB PO SCH (08:26)
[2021-07-08] MEDS ORDERED: D 1010004 PO (11:50)
[2021-07-08] MEDS ORDERED: BUME2TAB3 PO (11:50)
[2021-07-08] MEDS ORDERED: CYCL5TAB PO (11:50)
[2021-07-08] MEDS ORDERED: VITMTA PO (11:50)
[2021-07-18] MEDS ORDERED: DOCU100C16 PO (15:25)
[2021-07-18] MEDS ORDERED: LOSA50TA28 PO (15:25)
[2021-07-20] MEDS ORDERED: LACT20EL PO ×2 (09:41→11:26)
[2021-07-20] MEDS ORDERED: NYST10006 TOP (09:41)
[2021-07-20] MEDS ORDERED: NYST1POW9 TOP (11:26)
[2021-08-23] MEDS ORDERED: ADME100I2 (07:13)
== END 2021-05-16 13:28 | disposition home health service (06) ==
LOC: M ED 15:19 → M ED INP 17:20 → M MSPAV 22:42
PROVIDERS: ADMIT General Practice; ATTEND Internal Medicine
DX: K75.81 Nonalcoholic steatohepatitis (NASH) (principal); I11.0 Hypertensive heart disease with heart failure; I50.32 Chronic diastolic (congestive) heart failure; E66.01 Morbid (severe) obesity due to excess calories; Z68.43 Body mass index [BMI] 50.0-59.9, adult; E11.9 Type 2 diabetes mellitus without complications; K21.9 Gastro-esophageal reflux disease without esophagitis; J45.909 Unspecified asthma, uncomplicated; R29.6 Repeated falls; M16.11 Unilateral primary osteoarthritis, right hip; F32.A Depression, unspecified; F41.9 Anxiety disorder, unspecified; R60.1 Generalized edema; Z79.4 Long term (current) use of insulin; Z79.899 Other long term (current) drug therapy; Z88.1 Allergy status to other antibiotic agents; Z88.8 Allergy status to other drugs, medicaments and biological substances; Z20.822 Contact with and (suspected) exposure to COVID-19; K72.00 Acute and subacute hepatic failure without coma

== ENCOUNTER 2021-08-19 20:28 | Observation (INO) | payer OTHER ==
[~2021-08-19] VITALS: Ht 182.9 cm; Wt 150.4 kg
[~2021-08-19 20:28] MED LIST changes: +ALBU83IN NEB; +D 1010004 PO; +FURO20TA2 PO; +MELA1TAB9 PO; +NEUR300C PO; +NYST10006 TOP; +POLY17PO18 PO; +PROBCAP14 PO; +VITMTA PO; +[UNRECOGNIZED DRUG - CODE] NARES
[2021-08-20 00:10] LABS: BASO % 1.2 % (0.0-1.0); EOS # 0.1 10^3/uL (0.0-0.5); EOS % 4.4 % (0.0-3.0); HEMATOCRIT 28.3 % (36.0-47.0); HEMOGLOBIN 9.9 g/dl (12.0-15.5); LYMPH # 1.1 10^3/uL (1.5-5.0); LYMPH % 42.8 % (24.0-44.0); MEAN CORPUSCULAR HEMOGLOBIN 33.7 pg (27.0-33.0); MEAN CORPUSCULAR VOLUME 96.3 fl (80.0-96.0); MONO # 0.3 10^3/uL (0.0-0.8); MONO % 10.4 % (2.0-8.0); PLATELET COUNT, AUTOMATED 127 10^3/uL (150-450); RED BLOOD COUNT 2.94 10^6/uL (4.00-5.40); WHITE BLOOD COUNT 2.5 10^3/uL (4.0-10.0)
[2021-08-20 00:30] LABS: ACETAMINOPHEN LEVEL < 2.0 UG/ML (10.0-30.0); ALBUMIN 2.7 GM/DL (3.2-5.2); ALT/SGPT 18 U/L (12-78); BILIRUBIN,DIRECT 0.2 MG/DL (0.0-0.2); BILIRUBIN,TOTAL 0.5 MG/DL (0.2-1.0); BLOOD UREA NITROGEN 31 MG/DL (7-18); C REACTIVE PROTEIN QUANTITATIV 0.72 MG/DL (0.00-0.30); CALCIUM LEVEL 8.4 MG/DL (8.5-10.1); CARBON DIOXIDE LEVEL 25 MEQ/L (21-32); CHLORIDE LEVEL 110 MEQ/L (98-107); CREATININE FOR GFR 1.53 MG/DL (0.55-1.30); ETHYL ALCOHOL (ETHANOL) < 0.003 % (0.000-0.010); GLOMERULAR FILTRATION RATE 37.7 (>51); GLUCOSE, FASTING 335 MG/DL (70-100); POTASSIUM SERUM 3.7 MEQ/L (3.5-5.1); SALICYLATE LEVEL < 1.7 MG/DL (5.0-30.0); SODIUM LEVEL 143 MEQ/L (136-145); TOTAL PROTEIN 6.9 GM/DL (6.4-8.2)
[2021-08-20] MEDS ORDERED: NS 1,000 ML IV ONE (00:45)
[2021-08-20] MEDS ORDERED: LACTULOSE 20 GM/30 ML SYRUP UD PO ONE (00:45)
[2021-08-20 00:52] LABS: OSMOLALITY SERUM 311 MOSM/KG (275-295)
[2021-08-20 01:35] LABS: ERYTHROCYTE SEDIMENTATION RATE 129 mm/hr (0-30)
[2021-08-20 01:51] LABS: RSV AMPLIFICATION NEGATIVE (NEGATIVE)
[2021-08-20] MEDS ORDERED: FIORICET TAB PO ONE (03:05)
[2021-08-20] MEDS ORDERED: GLUCAGON INJ 1MG VIAL SC PRN (03:20)
[2021-08-20] MEDS ORDERED: DEXTROSE 50% 50 ML SYRINGE IV PRN (03:20)
[2021-08-20] MEDS ORDERED: GLUCOSE 4GM CHEW TABLET PO PRN (03:20)
[2021-08-20] MEDS ORDERED: MORPHINE 4 MG/ML 1ML VIAL/SYRINGE (J2270) IV ONE (04:30)
[2021-08-20] MEDS ORDERED: CARV12.5 PO (04:53)
[2021-08-20] MEDS ORDERED: NYST10CR TOP (04:53)
[2021-08-20] MEDS ORDERED: NYST1POW9 TOP (04:53)
[2021-08-20] MEDS ORDERED: ESOM0.1C PO (04:53)
[2021-08-20] MEDS ORDERED: LOSA25TA13 PO (04:53)
[2021-08-20] MEDS ORDERED: CEFD300C41 PO (04:53)
[2021-08-20] MEDS ORDERED: HOME MED LIST COMPLETE! XX SCH (04:55)
[2021-08-20] MEDS: HEPARIN SOD (PORCINE) 5000UNITS/ML 1ML VIAL/SYRINGE SC SCH ×3 (06:11→20:24)
[2021-08-20] MEDS ORDERED: traMADol 50 MG TAB PO PRN (06:35)
[2021-08-20] MEDS ORDERED: MECLIZINE 25 MG TABLET PO PRN (06:35)
[2021-08-20] MEDS: HumaLOG INSULIN (NovoLOG) PER UNIT SC SCH ×3 (07:30→17:30)
[2021-08-20 07:43] LABS: ALBUMIN 2.6 GM/DL (3.2-5.2); BILIRUBIN,TOTAL 0.5 MG/DL (0.2-1.0); CALCIUM LEVEL 8.2 MG/DL (8.5-10.1); CREATININE FOR GFR 1.48 MG/DL (0.55-1.30); GLOMERULAR FILTRATION RATE 39.1 (>51); POTASSIUM SERUM 3.7 MEQ/L (3.5-5.1); TOTAL PROTEIN 6.4 GM/DL (6.4-8.2)
[2021-08-20] MEDS: LACTULOSE 20 GM/30 ML SYRUP UD PO SCH ×4 (08:31→20:24)
[2021-08-20] MEDS: FERROUS SULFATE 325MG TAB PO SCH (08:31)
[2021-08-20] MEDS: GABAPENTIN 300 MG CAP PO SCH ×3 (08:31→20:26)
[2021-08-20] MEDS: DICYCLOMINE 10 MG CAP PO SCH ×4 (08:32→20:26)
[2021-08-20] MEDS: CARVedilol 12.5 MG TAB PO SCH ×2 (08:33→20:26)
[2021-08-20 08:34] LABS: HEMATOCRIT 28.6 % (36.0-47.0); HEMOGLOBIN 9.7 g/dl (12.0-15.5); MEAN CORPUSCULAR HEMOGLOBIN 33.2 pg (27.0-33.0); MEAN CORPUSCULAR HGB CONC 33.9 g/dl (32.0-36.5); MEAN CORPUSCULAR VOLUME 97.9 fl (80.0-96.0); PLATELET COUNT, AUTOMATED 149 10^3/uL (150-450); RED BLOOD COUNT 2.92 10^6/uL (4.00-5.40); WHITE BLOOD COUNT 2.9 10^3/uL (4.0-10.0)
[2021-08-20] MEDS: LEVEMIR (INSULIN DETEMIR) 1 UNITS/0.01ML SC SCH ×2 (08:35→20:24)
[2021-08-20 08:45] LABS: INR 1.06; PROTHROMBIN TIME 14.2 SECONDS (12.7-14.5)
[2021-08-20] MEDS: rOPINIRole 2MG TAB PO SCH ×2 (08:50→20:25)
[2021-08-20] MEDS: NYSTATIN OINTMENT 15 GM TOP SCH ×2 (09:00→20:26)
[2021-08-20 09:48] LABS: FOLATE 11.5 NG/ML (>5.4)
[2021-08-20] MEDS ORDERED: FLUCONAZOLE 50MG TABLET PO ONE (10:50)
[2021-08-20 19:58] VITALS: BP 132/60
[2021-08-20] MEDS ORDERED: TOPIRAMATE (TopAMAX) 25 MG TAB PO SCH (21:00)
[2021-08-20] MEDS ORDERED: HumaLOG INSULIN (NovoLOG) PER UNIT SC SCH (21:00)
[2021-08-20 23:23] VITALS: BP 149/76
[2021-08-20] MEDS ORDERED: diphenhydrAMINE 50MG/ML VIAL (J1200) IV PRN (23:25)
[2021-08-21 06:00] VITALS: BP 134/69
[2021-08-21] MEDS: HEPARIN SOD (PORCINE) 5000UNITS/ML 1ML VIAL/SYRINGE SC SCH (06:35)
[2021-08-21] MEDS ORDERED: LACT20EL PO (07:48)
[2021-08-21] MEDS: HumaLOG INSULIN (NovoLOG) PER UNIT SC SCH (08:08)
[2021-08-21] MEDS: rOPINIRole 2MG TAB PO SCH (08:08)
[2021-08-21] MEDS: GABAPENTIN 300 MG CAP PO SCH (08:08)
[2021-08-21] MEDS: FERROUS SULFATE 325MG TAB PO SCH (08:08)
[2021-08-21] MEDS: DICYCLOMINE 10 MG CAP PO SCH (08:08)
[2021-08-21] MEDS: LEVEMIR (INSULIN DETEMIR) 1 UNITS/0.01ML SC SCH (08:08)
[2021-08-21] MEDS: LACTULOSE 20 GM/30 ML SYRUP UD PO SCH (08:08)
[2021-08-21 08:09] VITALS: BP 134/69
[2021-08-21] MEDS: CARVedilol 12.5 MG TAB PO SCH (08:09)
[2021-08-21] MEDS: NYSTATIN OINTMENT 15 GM TOP SCH (08:09)
[2021-08-23] MEDS ORDERED: ADME100I2 (07:13)
== END 2021-08-21 11:50 ==
LOC: EDBD 20:28 → M ED 20:28 → M ED INP 08-20 01:41 → M MS5PR 08-20 23:22
PROVIDERS: ADMIT Family Medicine; ATTEND Family Medicine
DX: L30.4 Erythema intertrigo (principal); K75.81 Nonalcoholic steatohepatitis (NASH); E86.0 Dehydration; N17.9 Acute kidney failure, unspecified; E11.40 Type 2 diabetes mellitus with diabetic neuropathy, unspecified; M16.51 Unilateral post-traumatic osteoarthritis, right hip; Z88.1 Allergy status to other antibiotic agents; Z88.8 Allergy status to other drugs, medicaments and biological substances; I50.9 Heart failure, unspecified; I12.9 Hypertensive chronic kidney disease with stage 1 through stage 4 chronic kidney disease, or unspecified chronic kidney disease; F41.9 Anxiety disorder, unspecified; F32.9 Major depressive disorder, single episode, unspecified; K21.9 Gastro-esophageal reflux disease without esophagitis; E72.29 Other disorders of urea cycle metabolism; Z79.899 Other long term (current) drug therapy; Z79.4 Long term (current) use of insulin; F17.218 Nicotine dependence, cigarettes, with other nicotine-induced disorders
CPT/HCPCS: 36415; 71045; 80048; 80053; 80076; 80143; 82077; 82140; 82607; 82746; 83605; 83930; 84443; 85025; 85027; 85610; 85652; 86140; 87040; 87631; 93005; 93041; 94760; 96372; 96374; 96375; 97165; 97530; 97535; 99285; J1200; J1644; J2270

== ENCOUNTER 2021-11-12 15:12 | Inpatient (IN) | payer MEDICAID, OTHER ==
[~2021-11-12] VITALS: Ht 182.9 cm; Wt 157.8 kg
[~2021-11-12 15:12] MED LIST changes: +ADME100I2; +CARV12.5 PO; +ESOM0.1C PO
[2021-11-12 16:16] LABS: BASO % 0.6 % (0.0-1.0); EOS # 0.1 10^3/uL (0.0-0.5); EOS % 2.8 % (0.0-3.0); HEMOGLOBIN 10.5 g/dl (12.0-15.5); LYMPH % 31.3 % (24.0-44.0); MEAN CORPUSCULAR HEMOGLOBIN 34.7 pg (27.0-33.0); MEAN CORPUSCULAR HGB CONC 36.2 g/dl (32.0-36.5); MEAN CORPUSCULAR VOLUME 95.7 fl (80.0-96.0); MONO # 0.3 10^3/uL (0.0-0.8); MONO % 9.1 % (2.0-8.0); NEUTROPHILS # 1.8 10^3/uL (1.5-8.5); NEUTROPHILS % 55.6 % (36.0-66.0); PLATELET COUNT, AUTOMATED 127 10^3/uL (150-450); RED BLOOD COUNT 3.03 10^6/uL (4.00-5.40); WHITE BLOOD COUNT 3.2 10^3/uL (4.0-10.0)
[2021-11-12] MEDS ORDERED: LACTULOSE 20 GM/30 ML SYRUP UD PR ONE (16:45)
[2021-11-12 17:03] LABS: ALBUMIN 3.1 GM/DL (3.2-5.2); BILIRUBIN,DIRECT 0.2 MG/DL (0.0-0.2); BILIRUBIN,TOTAL 0.5 MG/DL (0.2-1.0); CALCIUM LEVEL 9.1 MG/DL (8.5-10.1); CREATININE FOR GFR 1.47 MG/DL (0.55-1.30); GLOMERULAR FILTRATION RATE 39.4 (>51); POTASSIUM SERUM 3.9 MEQ/L (3.5-5.1); THYROID STIMULATING HORMONE 3.3 uIU/ML (0.358-3.740); TOTAL PROTEIN 7.3 GM/DL (6.4-8.2)
[2021-11-12] MEDS ORDERED: GLUCOSE 4GM CHEW TABLET PO PRN (17:50)
[2021-11-12] MEDS ORDERED: DEXTROSE 50% 50 ML SYRINGE IV PRN (17:50)
[2021-11-12] MEDS ORDERED: INSULIN LISPRO (NovoLOG) PER UNIT SC SCH (17:50)
[2021-11-12] MEDS ORDERED: GLUCAGON INJ 1MG VIAL SC PRN (17:50)
[2021-11-12] MEDS: INSULIN LISPRO (NovoLOG) PER UNIT SC SCH ×2 (18:30→23:30)
[2021-11-12 18:59] LABS: RSV AMPLIFICATION NEGATIVE (NEGATIVE)
[2021-11-12] MEDS ORDERED: LACTULOSE 20 GM/30 ML SYRUP UD PO SCH (21:00)
[2021-11-12] MEDS ORDERED: HALOPERIDOL 5MG/ML VIAL (J1630 PER 1) IM ONE (21:55)
[2021-11-12 23:12] VITALS: BP 133/75
[2021-11-13] VITALS (14 sets, daily range): BP systolic 163–176; BP diastolic 60–79; O2SAT 96–98
[2021-11-13] MEDS ORDERED: XIFA550T PO (00:03)
[2021-11-13] MEDS ORDERED: BACITAB PO (00:03)
[2021-11-13] MEDS ORDERED: RA M10TA PO (00:03)
[2021-11-13] MEDS ORDERED: LORA-243 PO (00:03)
[2021-11-13] MEDS ORDERED: LACT20EL PO (00:03)
[2021-11-13] MEDS ORDERED: BASA100I SC (00:03)
[2021-11-13] MEDS ORDERED: OMEP1CAP73 PO (00:03)
[2021-11-13] MEDS ORDERED: VITA100093 PO (00:03)
[2021-11-13] MEDS ORDERED: PANT20TA6 PO (00:03)
[2021-11-13] MEDS ORDERED: HOME MED LIST COMPLETE! XX SCH (00:10)
[2021-11-13] MEDS ORDERED: HALOPERIDOL 5MG/ML VIAL (J1630 PER 1) IM ONE ×2 (00:15→04:45)
[2021-11-13] MEDS: LEVEMIR (INSULIN DETEMIR) 1 UNITS/0.01ML SC SCH ×3 (00:26→21:05)
[2021-11-13] MEDS ORDERED: LACTULOSE 20 GM/30 ML SYRUP UD NG ONE (01:15)
[2021-11-13] MEDS: HEPARIN SOD (PORCINE) 5000UNITS/ML 1ML VIAL/SYRINGE SC SCH ×3 (05:01→21:06)
[2021-11-13] MEDS: INSULIN LISPRO (NovoLOG) PER UNIT SC SCH ×3 (06:00→17:50)
[2021-11-13 07:28] LABS: HEMATOCRIT 28.1 % (36.0-47.0); HEMOGLOBIN 10.3 g/dl (12.0-15.5); MEAN CORPUSCULAR HEMOGLOBIN 34.3 pg (27.0-33.0); MEAN CORPUSCULAR VOLUME 93.7 fl (80.0-96.0); PLATELET COUNT, AUTOMATED 122 10^3/uL (150-450); WHITE BLOOD COUNT 4.9 10^3/uL (4.0-10.0)
[2021-11-13 07:29] LABS: MEAN CORPUSCULAR HGB CONC 36.7 g/dl (32.0-36.5)
[2021-11-13 08:19] LABS: ALBUMIN 2.7 GM/DL (3.2-5.2); BILIRUBIN,TOTAL 0.9 MG/DL (0.2-1.0); CALCIUM LEVEL 9.3 MG/DL (8.5-10.1); CREATININE FOR GFR 1.05 MG/DL (0.55-1.30); GLOMERULAR FILTRATION RATE 58.1 (>51); POTASSIUM SERUM 3.1 MEQ/L (3.5-5.1)
[2021-11-13] MEDS: LACTULOSE 20 GM/30 ML SYRUP UD NG SCH ×4 (08:40→20:44)
[2021-11-13] MEDS ORDERED: LEVEMIR (INSULIN DETEMIR) 1 UNITS/0.01ML SC ONE (09:35)
[2021-11-13] MEDS ORDERED: METOPROLOL 5 MG/5 ML VIAL IV STA (09:43)
[2021-11-13] MEDS ORDERED: PILL CUTTER 1 EACH XX PRN (10:40)
[2021-11-13] MEDS: CARVedilol 12.5 MG TAB NG SCH ×2 (10:45→20:50)
[2021-11-13] MEDS: LOSARTAN 25 MG TAB NG SCH (10:45)
[2021-11-13] MEDS ORDERED: POTASSIUM CHLORIDE 10% LIQ 20 MEQ/15 ML UDC PO ONE (11:30)
[2021-11-13] MEDS: D5W 1,000 ML IV SCH ×2 (11:54→21:05)
[2021-11-13] MEDS ORDERED: oxyCODONE 5MG TAB NG ONE (15:00)
[2021-11-13] MEDS: NYSTATIN 100,000 UNITS/GM TOPICAL PWD 15 GM TOP PRN (15:01)
[2021-11-13] MEDS: cefTRIAXone SOD 1 GM in D5W MINI-BAG PLUS 50 ML IV SCH (15:01)
[2021-11-13] MEDS ORDERED: traMADol 50 MG TAB NG ONE (15:30)
[2021-11-13 19:02] LABS: CALCIUM LEVEL 9.5 MG/DL (8.5-10.1); CREATININE FOR GFR 1.14 MG/DL (0.55-1.30); GLOMERULAR FILTRATION RATE 52.9 (>51); MAGNESIUM LEVEL 2.1 MG/DL (1.8-2.4); POTASSIUM SERUM 3.7 MEQ/L (3.5-5.1)
[2021-11-14] VITALS (19 sets, daily range): BP systolic 123–168; BP diastolic 61–74; O2SAT 97–99
[2021-11-14] MEDS: INSULIN LISPRO (NovoLOG) PER UNIT SC SCH ×5 (00:02→20:39)
[2021-11-14 00:45] LABS: CALCIUM LEVEL 8.6 MG/DL (8.5-10.1); CREATININE FOR GFR 1.14 MG/DL (0.55-1.30); GLOMERULAR FILTRATION RATE 52.9 (>51); POTASSIUM SERUM 5.1 MEQ/L (3.5-5.1)
[2021-11-14] MEDS: HEPARIN SOD (PORCINE) 5000UNITS/ML 1ML VIAL/SYRINGE SC SCH ×3 (05:14→21:48)
[2021-11-14 07:11] LABS: HEMATOCRIT 28.6 % (36.0-47.0); HEMOGLOBIN 9.9 g/dl (12.0-15.5); MEAN CORPUSCULAR HEMOGLOBIN 33.7 pg (27.0-33.0); MEAN CORPUSCULAR HGB CONC 34.6 g/dl (32.0-36.5); MEAN CORPUSCULAR VOLUME 97.3 fl (80.0-96.0); PLATELET COUNT, AUTOMATED 118 10^3/uL (150-450); RED BLOOD COUNT 2.94 10^6/uL (4.00-5.40); WHITE BLOOD COUNT 5.3 10^3/uL (4.0-10.0)
[2021-11-14 07:44] LABS: ALBUMIN 2.8 GM/DL (3.2-5.2); ALT/SGPT 25 U/L (12-78); BLOOD UREA NITROGEN 34 MG/DL (7-18); CALCIUM LEVEL 8.5 MG/DL (8.5-10.1); CARBON DIOXIDE LEVEL 22 MEQ/L (21-32); CHLORIDE LEVEL 116 MEQ/L (98-107); GLOMERULAR FILTRATION RATE > 60.0 (>51); GLUCOSE, FASTING 198 MG/DL (70-100); MAGNESIUM LEVEL 2.2 MG/DL (1.8-2.4); POTASSIUM SERUM 3.6 MEQ/L (3.5-5.1); SODIUM LEVEL 143 MEQ/L (136-145); TOTAL PROTEIN 6.5 GM/DL (6.4-8.2)
[2021-11-14] MEDS: LACTULOSE 20 GM/30 ML SYRUP UD NG SCH (08:31)
[2021-11-14] MEDS: LEVEMIR (INSULIN DETEMIR) 1 UNITS/0.01ML SC SCH ×2 (08:34→20:39)
[2021-11-14] MEDS: LOSARTAN 25 MG TAB NG SCH (08:35)
[2021-11-14] MEDS: CARVedilol 12.5 MG TAB NG SCH (08:35)
[2021-11-14] MEDS ORDERED: traMADol 50 MG TAB PO ONE (10:15)
[2021-11-14] MEDS: FERROUS SULFATE 325MG TAB PO SCH (10:18)
[2021-11-14] MEDS: LORATADINE 10 MG TAB PO SCH (10:18)
[2021-11-14] MEDS: CARVedilol 12.5 MG TAB PO SCH ×2 (10:19→20:37)
[2021-11-14] MEDS: LACTULOSE 20 GM/30 ML SYRUP UD PO SCH ×4 (10:19→20:38)
[2021-11-14] MEDS: LOSARTAN 25 MG TAB PO SCH (10:22)
[2021-11-14] MEDS ORDERED: LIDOCAINE 5% (LIDODERM) PATCH TD ONE (11:00)
[2021-11-14] MEDS: rOPINIRole 1MG TAB PO SCH ×2 (11:24→20:37)
[2021-11-14] MEDS: rifAXIMin 550 MG TAB (XIFAXAN) PO SCH ×2 (11:59→20:38)
[2021-11-14] MEDS: cefTRIAXone SOD 1 GM in D5W MINI-BAG PLUS 50 ML IV SCH (14:59)
[2021-11-14] MEDS: TOPIRAMATE (TopAMAX) 25 MG TAB PO SCH (20:37)
[2021-11-14] MEDS: ESCITALOPRAM OXALATE 10 MG TAB (LEXAPRO) PO SCH (20:38)
[2021-11-14] MEDS ORDERED: **NOTE PATIENT COMMENT** MISC XX ONE (23:00)
[2021-11-15] VITALS (8 sets, daily range): BP systolic 111; BP diastolic 53; O2SAT 97–98
[2021-11-15] MEDS: NYSTATIN 100,000 UNITS/GM TOPICAL PWD 15 GM TOP PRN (05:41)
[2021-11-15] MEDS: HEPARIN SOD (PORCINE) 5000UNITS/ML 1ML VIAL/SYRINGE SC SCH ×3 (05:42→21:24)
[2021-11-15 07:35] LABS: HEMATOCRIT 26.7 % (36.0-47.0); HEMOGLOBIN 9.5 g/dl (12.0-15.5); MEAN CORPUSCULAR HEMOGLOBIN 34.9 pg (27.0-33.0); MEAN CORPUSCULAR HGB CONC 35.6 g/dl (32.0-36.5); MEAN CORPUSCULAR VOLUME 98.2 fl (80.0-96.0); PLATELET COUNT, AUTOMATED 100 10^3/uL (150-450); RED BLOOD COUNT 2.72 10^6/uL (4.00-5.40); WHITE BLOOD COUNT 3.5 10^3/uL (4.0-10.0)
[2021-11-15 08:02] LABS: ALBUMIN 2.6 GM/DL (3.2-5.2); ALT/SGPT 31 U/L (12-78); BILIRUBIN,TOTAL 0.6 MG/DL (0.2-1.0); BLOOD UREA NITROGEN 31 MG/DL (7-18); CALCIUM LEVEL 8.6 MG/DL (8.5-10.1); CARBON DIOXIDE LEVEL 21 MEQ/L (21-32); CHLORIDE LEVEL 117 MEQ/L (98-107); CREATININE FOR GFR 0.96 MG/DL (0.55-1.30); GLOMERULAR FILTRATION RATE > 60.0 (>51); GLUCOSE, FASTING 177 MG/DL (70-100); MAGNESIUM LEVEL 2.1 MG/DL (1.8-2.4); POTASSIUM SERUM 3.6 MEQ/L (3.5-5.1); SODIUM LEVEL 144 MEQ/L (136-145); TOTAL PROTEIN 6.3 GM/DL (6.4-8.2)
[2021-11-15] MEDS: INSULIN LISPRO (NovoLOG) PER UNIT SC SCH ×4 (08:25→21:27)
[2021-11-15] MEDS: LACTULOSE 20 GM/30 ML SYRUP UD PO SCH ×4 (08:25→21:00)
[2021-11-15] MEDS: LORATADINE 10 MG TAB PO SCH (08:26)
[2021-11-15] MEDS: rifAXIMin 550 MG TAB (XIFAXAN) PO SCH ×2 (08:26→21:26)
[2021-11-15] MEDS: rOPINIRole 1MG TAB PO SCH ×2 (08:27→21:23)
[2021-11-15] MEDS: FERROUS SULFATE 325MG TAB PO SCH (08:29)
[2021-11-15] MEDS: CARVedilol 12.5 MG TAB PO SCH ×2 (08:29→21:25)
[2021-11-15] MEDS: LOSARTAN 25 MG TAB PO SCH (08:30)
[2021-11-15] MEDS: LEVEMIR (INSULIN DETEMIR) 1 UNITS/0.01ML SC SCH ×2 (08:31→21:28)
[2021-11-15] MEDS: PANTOPRAZOLE 20 MG TAB PO SCH (09:00)
[2021-11-15] MEDS: VITAMIN D 1,000 INTERNATIONAL UNITS TABLET PO SCH (11:31)
[2021-11-15] MEDS: GABAPENTIN 300 MG CAP PO SCH ×3 (11:31→21:25)
[2021-11-15] MEDS: DICYCLOMINE 10 MG CAP PO SCH ×3 (13:50→21:25)
[2021-11-15] MEDS: TOPIRAMATE (TopAMAX) 25 MG TAB PO SCH (21:24)
[2021-11-15] MEDS: ESCITALOPRAM OXALATE 10 MG TAB (LEXAPRO) PO SCH (21:25)
[2021-11-16 05:32] VITALS: BP 126/59
[2021-11-16] MEDS: HEPARIN SOD (PORCINE) 5000UNITS/ML 1ML VIAL/SYRINGE SC SCH ×3 (06:23→21:13)
[2021-11-16] MEDS: GABAPENTIN 300 MG CAP PO SCH ×3 (08:22→21:13)
[2021-11-16] MEDS: rOPINIRole 1MG TAB PO SCH ×2 (08:22→21:13)
[2021-11-16] MEDS: rifAXIMin 550 MG TAB (XIFAXAN) PO SCH ×2 (08:22→21:13)
[2021-11-16] MEDS: VITAMIN D 1,000 INTERNATIONAL UNITS TABLET PO SCH (08:22)
[2021-11-16] MEDS: FERROUS SULFATE 325MG TAB PO SCH (08:22)
[2021-11-16] MEDS: DICYCLOMINE 10 MG CAP PO SCH ×4 (08:22→21:14)
[2021-11-16] MEDS: LORATADINE 10 MG TAB PO SCH (08:22)
[2021-11-16] MEDS: LACTULOSE 20 GM/30 ML SYRUP UD PO SCH ×4 (08:23→20:55)
[2021-11-16] MEDS: PANTOPRAZOLE 20 MG TAB PO SCH (08:23)
[2021-11-16] MEDS: INSULIN LISPRO (NovoLOG) PER UNIT SC SCH ×4 (08:24→21:14)
[2021-11-16] MEDS: LOSARTAN 25 MG TAB PO SCH (08:24)
[2021-11-16] MEDS: LEVEMIR (INSULIN DETEMIR) 1 UNITS/0.01ML SC SCH ×2 (08:25→21:14)
[2021-11-16] MEDS: CARVedilol 12.5 MG TAB PO SCH ×2 (08:25→21:15)
[2021-11-16 09:16] LABS: HEMATOCRIT 27.5 % (36.0-47.0); HEMOGLOBIN 9.8 g/dl (12.0-15.5); MEAN CORPUSCULAR HEMOGLOBIN 34.1 pg (27.0-33.0); MEAN CORPUSCULAR HGB CONC 35.6 g/dl (32.0-36.5); MEAN CORPUSCULAR VOLUME 95.8 fl (80.0-96.0); PLATELET COUNT, AUTOMATED 122 10^3/uL (150-450); RED BLOOD COUNT 2.87 10^6/uL (4.00-5.40); WHITE BLOOD COUNT 2.5 10^3/uL (4.0-10.0)
[2021-11-16 09:41] LABS: ALBUMIN 2.6 GM/DL (3.2-5.2); ALT/SGPT 41 U/L (12-78); BILIRUBIN,TOTAL 0.5 MG/DL (0.2-1.0); BLOOD UREA NITROGEN 31 MG/DL (7-18); CALCIUM LEVEL 8.9 MG/DL (8.5-10.1); CARBON DIOXIDE LEVEL 20 MEQ/L (21-32); CHLORIDE LEVEL 112 MEQ/L (98-107); CREATININE FOR GFR 0.99 MG/DL (0.55-1.30); GLOMERULAR FILTRATION RATE > 60.0 (>51); GLUCOSE, FASTING 306 MG/DL (70-100); MAGNESIUM LEVEL 2.2 MG/DL (1.8-2.4); POTASSIUM SERUM 4.5 MEQ/L (3.5-5.1); SODIUM LEVEL 137 MEQ/L (136-145)
[2021-11-16] MEDS ORDERED: oxyCODONE 5MG TAB PO ONE ×2 (12:00→19:30)
[2021-11-16] MEDS ORDERED: FLUCONAZOLE 50MG TABLET PO ONE (17:00)
[2021-11-16 20:00] VITALS: BP 138/65
[2021-11-16] MEDS: ESCITALOPRAM OXALATE 10 MG TAB (LEXAPRO) PO SCH (21:13)
[2021-11-16] MEDS: TOPIRAMATE (TopAMAX) 25 MG TAB PO SCH (21:14)
[2021-11-16] MEDS ORDERED: CEPACOL LOZENGE PO PRN (21:55)
[2021-11-16] MEDS: RAMELTEON 8 MG TAB (ROZEREM) PO PRN (22:53)
[2021-11-16] MEDS: CHLORASEPTIC SPRAY MT PRN (22:53)
[2021-11-17] MEDS: HEPARIN SOD (PORCINE) 5000UNITS/ML 1ML VIAL/SYRINGE SC SCH ×3 (05:13→21:35)
[2021-11-17] MEDS: DICYCLOMINE 10 MG CAP PO SCH ×4 (08:24→20:14)
[2021-11-17] MEDS: rifAXIMin 550 MG TAB (XIFAXAN) PO SCH ×2 (08:24→21:33)
[2021-11-17] MEDS: GABAPENTIN 300 MG CAP PO SCH ×3 (08:24→20:14)
[2021-11-17] MEDS: FERROUS SULFATE 325MG TAB PO SCH (08:24)
[2021-11-17] MEDS: LORATADINE 10 MG TAB PO SCH (08:24)
[2021-11-17] MEDS: VITAMIN D 1,000 INTERNATIONAL UNITS TABLET PO SCH (08:24)
[2021-11-17] MEDS: CARVedilol 12.5 MG TAB PO SCH ×2 (08:25→20:13)
[2021-11-17] MEDS: LACTULOSE 20 GM/30 ML SYRUP UD PO SCH ×4 (08:25→20:15)
[2021-11-17] MEDS: PANTOPRAZOLE 20 MG TAB PO SCH (08:25)
[2021-11-17] MEDS: rOPINIRole 1MG TAB PO SCH ×2 (08:25→20:12)
[2021-11-17] MEDS: LOSARTAN 25 MG TAB PO SCH (08:26)
[2021-11-17] MEDS: INSULIN LISPRO (NovoLOG) PER UNIT SC SCH ×4 (08:26→20:16)
[2021-11-17] MEDS: LEVEMIR (INSULIN DETEMIR) 1 UNITS/0.01ML SC SCH ×2 (08:27→20:16)
[2021-11-17] MEDS ORDERED: ACETAMINOPHEN TAB 650MG DOSE (2X325MG) PO PRN (09:05)
[2021-11-17 10:00] LABS: HEMATOCRIT 26.1 % (36.0-47.0); HEMOGLOBIN 9.3 g/dl (12.0-15.5); MEAN CORPUSCULAR HGB CONC 35.6 g/dl (32.0-36.5); MEAN CORPUSCULAR VOLUME 98.1 fl (80.0-96.0); PLATELET COUNT, AUTOMATED 112 10^3/uL (150-450); RED BLOOD COUNT 2.66 10^6/uL (4.00-5.40); WHITE BLOOD COUNT 2.4 10^3/uL (4.0-10.0)
[2021-11-17 10:31] LABS: ALBUMIN 2.6 GM/DL (3.2-5.2); BILIRUBIN,TOTAL 0.5 MG/DL (0.2-1.0); CALCIUM LEVEL 8.8 MG/DL (8.5-10.1); CREATININE FOR GFR 1.14 MG/DL (0.55-1.30); GLOMERULAR FILTRATION RATE 52.9 (>51); MAGNESIUM LEVEL 2.1 MG/DL (1.8-2.4); POTASSIUM SERUM 4.4 MEQ/L (3.5-5.1); TOTAL PROTEIN 6.2 GM/DL (6.4-8.2)
[2021-11-17 20:00] VITALS: BP 127/59
[2021-11-17] MEDS: TOPIRAMATE (TopAMAX) 25 MG TAB PO SCH (20:12)
[2021-11-17] MEDS ORDERED: KETOROLAC 30 MG/ML 1ML VIAL IV ONE (21:00)
[2021-11-17] MEDS: ESCITALOPRAM OXALATE 10 MG TAB (LEXAPRO) PO SCH (21:33)
[2021-11-18 04:00] VITALS: BP 125/58
[2021-11-18] MEDS: IBUPROFEN 600MG TAB PO PRN ×2 (05:20→21:38)
[2021-11-18] MEDS: HEPARIN SOD (PORCINE) 5000UNITS/ML 1ML VIAL/SYRINGE SC SCH ×3 (05:21→21:43)
[2021-11-18 06:11] LABS: HEMATOCRIT 25.9 % (36.0-47.0); MEAN CORPUSCULAR HEMOGLOBIN 33.7 pg (27.0-33.0); MEAN CORPUSCULAR HGB CONC 34.7 g/dl (32.0-36.5); PLATELET COUNT, AUTOMATED 115 10^3/uL (150-450); RED BLOOD COUNT 2.67 10^6/uL (4.00-5.40); WHITE BLOOD COUNT 2.1 10^3/uL (4.0-10.0)
[2021-11-18 06:34] LABS: CREATININE FOR GFR 1.09 MG/DL (0.55-1.30); GLOMERULAR FILTRATION RATE 55.7 (>51); POTASSIUM SERUM 3.9 MEQ/L (3.5-5.1)
[2021-11-18 06:35] LABS: ALBUMIN 2.4 GM/DL (3.2-5.2); BILIRUBIN,TOTAL 0.4 MG/DL (0.2-1.0); MAGNESIUM LEVEL 2.2 MG/DL (1.8-2.4); TOTAL PROTEIN 6.7 GM/DL (6.4-8.2)
[2021-11-18] MEDS: LEVEMIR (INSULIN DETEMIR) 1 UNITS/0.01ML SC SCH ×2 (08:25→21:45)
[2021-11-18] MEDS: INSULIN LISPRO (NovoLOG) PER UNIT SC SCH ×4 (08:25→21:44)
[2021-11-18] MEDS: LACTULOSE 20 GM/30 ML SYRUP UD PO SCH ×4 (08:27→21:00)
[2021-11-18] MEDS: GABAPENTIN 300 MG CAP PO SCH ×3 (08:27→21:36)
[2021-11-18] MEDS: LORATADINE 10 MG TAB PO SCH (08:27)
[2021-11-18] MEDS: PANTOPRAZOLE 20 MG TAB PO SCH (08:27)
[2021-11-18] MEDS: LOSARTAN 25 MG TAB PO SCH (08:28)
[2021-11-18] MEDS: VITAMIN D 1,000 INTERNATIONAL UNITS TABLET PO SCH (08:28)
[2021-11-18] MEDS: rOPINIRole 1MG TAB PO SCH ×2 (08:28→21:34)
[2021-11-18] MEDS: DICYCLOMINE 10 MG CAP PO SCH ×4 (08:28→21:36)
[2021-11-18] MEDS: CARVedilol 12.5 MG TAB PO SCH ×2 (08:30→21:38)
[2021-11-18] MEDS: FERROUS SULFATE 325MG TAB PO SCH (08:30)
[2021-11-18] MEDS: rifAXIMin 550 MG TAB (XIFAXAN) PO SCH ×2 (12:01→21:36)
[2021-11-18 21:16] VITALS: BP 122/60
[2021-11-18] MEDS: TOPIRAMATE (TopAMAX) 25 MG TAB PO SCH (21:34)
[2021-11-18] MEDS: RAMELTEON 8 MG TAB (ROZEREM) PO PRN (21:36)
[2021-11-18] MEDS: ESCITALOPRAM OXALATE 10 MG TAB (LEXAPRO) PO SCH (21:36)
[2021-11-18] MEDS: CHLORASEPTIC SPRAY MT PRN (21:53)
[2021-11-18] MEDS: NYSTATIN 100,000 UNITS/GM TOPICAL PWD 15 GM TOP PRN (21:57)
[2021-11-19 04:00] VITALS: BP 122/57
[2021-11-19] MEDS: HEPARIN SOD (PORCINE) 5000UNITS/ML 1ML VIAL/SYRINGE SC SCH ×3 (05:45→21:59)
[2021-11-19 06:35] LABS: HEMATOCRIT 26.6 % (36.0-47.0); HEMOGLOBIN 9.4 g/dl (12.0-15.5); MEAN CORPUSCULAR HEMOGLOBIN 34.1 pg (27.0-33.0); MEAN CORPUSCULAR HGB CONC 35.3 g/dl (32.0-36.5); MEAN CORPUSCULAR VOLUME 96.4 fl (80.0-96.0); PLATELET COUNT, AUTOMATED 117 10^3/uL (150-450); RED BLOOD COUNT 2.76 10^6/uL (4.00-5.40); WHITE BLOOD COUNT 2.8 10^3/uL (4.0-10.0)
[2021-11-19 07:00] LABS: ALBUMIN 2.7 GM/DL (3.2-5.2); BILIRUBIN,TOTAL 0.4 MG/DL (0.2-1.0); CALCIUM LEVEL 8.8 MG/DL (8.5-10.1); CREATININE FOR GFR 1.12 MG/DL (0.55-1.30); MAGNESIUM LEVEL 2.3 MG/DL (1.8-2.4); POTASSIUM SERUM 4.7 MEQ/L (3.5-5.1); TOTAL PROTEIN 6.8 GM/DL (6.4-8.2)
[2021-11-19] MEDS: INSULIN LISPRO (NovoLOG) PER UNIT SC SCH ×4 (07:40→21:59)
[2021-11-19] MEDS: GABAPENTIN 300 MG CAP PO SCH ×3 (09:32→21:55)
[2021-11-19] MEDS: rOPINIRole 1MG TAB PO SCH ×2 (09:32→21:55)
[2021-11-19] MEDS: LEVEMIR (INSULIN DETEMIR) 1 UNITS/0.01ML SC SCH ×2 (09:32→21:58)
[2021-11-19] MEDS: FERROUS SULFATE 325MG TAB PO SCH (09:32)
[2021-11-19] MEDS: LACTULOSE 20 GM/30 ML SYRUP UD PO SCH ×4 (09:33→21:55)
[2021-11-19] MEDS: rifAXIMin 550 MG TAB (XIFAXAN) PO SCH ×2 (09:33→21:54)
[2021-11-19] MEDS: CARVedilol 12.5 MG TAB PO SCH ×2 (09:33→21:56)
[2021-11-19] MEDS: PANTOPRAZOLE 20 MG TAB PO SCH (09:34)
[2021-11-19] MEDS: VITAMIN D 1,000 INTERNATIONAL UNITS TABLET PO SCH (09:34)
[2021-11-19] MEDS: LOSARTAN 25 MG TAB PO SCH (09:34)
[2021-11-19] MEDS: LORATADINE 10 MG TAB PO SCH (09:34)
[2021-11-19] MEDS: DICYCLOMINE 10 MG CAP PO SCH ×4 (09:40→21:54)
[2021-11-19 20:00] VITALS: BP 126/62
[2021-11-19] MEDS: ESCITALOPRAM OXALATE 10 MG TAB (LEXAPRO) PO SCH (21:54)
[2021-11-19] MEDS: TOPIRAMATE (TopAMAX) 25 MG TAB PO SCH (21:55)
[2021-11-19] MEDS: NYSTATIN 100,000 UNITS/GM TOPICAL PWD 15 GM TOP PRN (22:02)
[2021-11-19] MEDS: IBUPROFEN 600MG TAB PO PRN (22:02)
[2021-11-19] MEDS: RAMELTEON 8 MG TAB (ROZEREM) PO PRN (22:06)
[2021-11-20] MEDS ORDERED: traMADol 50 MG TAB PO ONE (02:00)
[2021-11-20 06:00] VITALS: BP 114/53
[2021-11-20] MEDS: HEPARIN SOD (PORCINE) 5000UNITS/ML 1ML VIAL/SYRINGE SC SCH ×3 (06:33→21:10)
[2021-11-20 06:49] LABS: HEMATOCRIT 24.3 % (36.0-47.0); HEMOGLOBIN 8.6 g/dl (12.0-15.5); MEAN CORPUSCULAR HEMOGLOBIN 35.1 pg (27.0-33.0); MEAN CORPUSCULAR HGB CONC 35.4 g/dl (32.0-36.5); MEAN CORPUSCULAR VOLUME 99.2 fl (80.0-96.0); PLATELET COUNT, AUTOMATED 102 10^3/uL (150-450); RED BLOOD COUNT 2.45 10^6/uL (4.00-5.40); WHITE BLOOD COUNT 2.2 10^3/uL (4.0-10.0)
[2021-11-20 07:21] LABS: ALBUMIN 2.5 GM/DL (3.2-5.2); ALT/SGPT 27 U/L (12-78); BILIRUBIN,TOTAL 0.4 MG/DL (0.2-1.0); BLOOD UREA NITROGEN 31 MG/DL (7-18); CALCIUM LEVEL 8.9 MG/DL (8.5-10.1); CARBON DIOXIDE LEVEL 20 MEQ/L (21-32); CHLORIDE LEVEL 114 MEQ/L (98-107); GLOMERULAR FILTRATION RATE > 60.0 (>51); GLUCOSE, FASTING 314 MG/DL (70-100); MAGNESIUM LEVEL 2.2 MG/DL (1.8-2.4); POTASSIUM SERUM 4.3 MEQ/L (3.5-5.1); SODIUM LEVEL 139 MEQ/L (136-145); TOTAL PROTEIN 6.1 GM/DL (6.4-8.2)
[2021-11-20 07:22] LABS: ATYPICAL LYMPH 1 % (0-5); BASOPHILS 2 % (0-1); EOSINOPHILS 1 % (0-3); LYMPHOCYTES 46 % (16-44); MONOCYTES 5 % (0-5); NEUTROPHILS 45 % (28-66); PLATELET ESTIMATE NORMAL (NORMAL)
[2021-11-20] MEDS: LACTULOSE 20 GM/30 ML SYRUP UD PO SCH ×4 (09:21→20:52)
[2021-11-20] MEDS: rifAXIMin 550 MG TAB (XIFAXAN) PO SCH ×2 (09:21→21:08)
[2021-11-20] MEDS: VITAMIN D 1,000 INTERNATIONAL UNITS TABLET PO SCH (09:21)
[2021-11-20] MEDS: PANTOPRAZOLE 20 MG TAB PO SCH (09:21)
[2021-11-20] MEDS: rOPINIRole 1MG TAB PO SCH ×2 (09:21→21:10)
[2021-11-20] MEDS: GABAPENTIN 300 MG CAP PO SCH ×3 (09:21→21:12)
[2021-11-20] MEDS: FERROUS SULFATE 325MG TAB PO SCH (09:22)
[2021-11-20] MEDS: DICYCLOMINE 10 MG CAP PO SCH ×4 (09:22→21:10)
[2021-11-20] MEDS: LORATADINE 10 MG TAB PO SCH (09:22)
[2021-11-20] MEDS: LEVEMIR (INSULIN DETEMIR) 1 UNITS/0.01ML SC SCH ×2 (09:22→21:11)
[2021-11-20] MEDS: CARVedilol 12.5 MG TAB PO SCH ×2 (09:23→21:09)
[2021-11-20] MEDS: LOSARTAN 25 MG TAB PO SCH (09:23)
[2021-11-20] MEDS: INSULIN LISPRO (NovoLOG) PER UNIT SC SCH ×4 (09:24→21:11)
[2021-11-20] MEDS: NYSTATIN 100,000 UNITS/GM TOPICAL PWD 15 GM TOP PRN (09:24)
[2021-11-20] MEDS: RAMELTEON 8 MG TAB (ROZEREM) PO PRN (21:08)
[2021-11-20] MEDS: TOPIRAMATE (TopAMAX) 25 MG TAB PO SCH (21:10)
[2021-11-20] MEDS: ESCITALOPRAM OXALATE 10 MG TAB (LEXAPRO) PO SCH (21:12)
[2021-11-20] MEDS: IBUPROFEN 600MG TAB PO PRN (21:12)
[2021-11-20] MEDS: carisoprodoL 350 MG TAB PO PRN (21:16)
[2021-11-21] MEDS: HEPARIN SOD (PORCINE) 5000UNITS/ML 1ML VIAL/SYRINGE SC SCH ×3 (05:17→20:20)
[2021-11-21 05:27] VITALS: BP 117/57
[2021-11-21 06:25] LABS: BASO % 0.9 % (0.0-1.0); EOS # 0.1 10^3/uL (0.0-0.5); HEMATOCRIT 25.4 % (36.0-47.0); HEMOGLOBIN 8.7 g/dl (12.0-15.5); LYMPH % 45.3 % (24.0-44.0); MEAN CORPUSCULAR HEMOGLOBIN 34.1 pg (27.0-33.0); MEAN CORPUSCULAR HGB CONC 34.3 g/dl (32.0-36.5); MEAN CORPUSCULAR VOLUME 99.6 fl (80.0-96.0); MONO # 0.2 10^3/uL (0.0-0.8); MONO % 9.4 % (2.0-8.0); PLATELET COUNT, AUTOMATED 101 10^3/uL (150-450); RED BLOOD COUNT 2.55 10^6/uL (4.00-5.40); WHITE BLOOD COUNT 2.2 10^3/uL (4.0-10.0)
[2021-11-21 06:54] LABS: ALBUMIN 2.6 GM/DL (3.2-5.2); BILIRUBIN,TOTAL 0.4 MG/DL (0.2-1.0); CALCIUM LEVEL 9.2 MG/DL (8.5-10.1); CREATININE FOR GFR 1.04 MG/DL (0.55-1.30); GLOMERULAR FILTRATION RATE 58.8 (>51); MAGNESIUM LEVEL 2.2 MG/DL (1.8-2.4); POTASSIUM SERUM 4.4 MEQ/L (3.5-5.1); TOTAL PROTEIN 6.9 GM/DL (6.4-8.2)
[2021-11-21 06:59] LABS: NEUTROPHILS # 0.9 10^3/uL (1.5-8.5)
[2021-11-21] MEDS: LACTULOSE 20 GM/30 ML SYRUP UD PO SCH ×4 (09:00→20:25)
[2021-11-21] MEDS: VITAMIN D 1,000 INTERNATIONAL UNITS TABLET PO SCH (09:33)
[2021-11-21] MEDS: rOPINIRole 1MG TAB PO SCH ×2 (09:34→20:24)
[2021-11-21] MEDS: CARVedilol 12.5 MG TAB PO SCH ×2 (09:34→20:23)
[2021-11-21] MEDS: DICYCLOMINE 10 MG CAP PO SCH ×4 (09:34→20:24)
[2021-11-21] MEDS: rifAXIMin 550 MG TAB (XIFAXAN) PO SCH ×2 (09:35→20:24)
[2021-11-21] MEDS: INSULIN LISPRO (NovoLOG) PER UNIT SC SCH ×4 (09:35→20:22)
[2021-11-21] MEDS: LEVEMIR (INSULIN DETEMIR) 1 UNITS/0.01ML SC SCH ×2 (09:35→20:21)
[2021-11-21] MEDS: LORATADINE 10 MG TAB PO SCH (09:36)
[2021-11-21] MEDS: FERROUS SULFATE 325MG TAB PO SCH (09:36)
[2021-11-21] MEDS: PANTOPRAZOLE 20 MG TAB PO SCH (09:36)
[2021-11-21] MEDS: GABAPENTIN 300 MG CAP PO SCH ×3 (09:36→20:24)
[2021-11-21] MEDS: LOSARTAN 25 MG TAB PO SCH (09:36)
[2021-11-21] MEDS: TOPIRAMATE (TopAMAX) 25 MG TAB PO SCH (20:23)
[2021-11-21] MEDS: ESCITALOPRAM OXALATE 10 MG TAB (LEXAPRO) PO SCH (20:24)
[2021-11-21] MEDS: carisoprodoL 350 MG TAB PO PRN (20:37)
[2021-11-22] MEDS: RAMELTEON 8 MG TAB (ROZEREM) PO PRN ×2 (00:33→22:05)
[2021-11-22 05:55] VITALS: BP 114/57
[2021-11-22] MEDS: HEPARIN SOD (PORCINE) 5000UNITS/ML 1ML VIAL/SYRINGE SC SCH ×3 (06:00→21:30)
[2021-11-22 07:12] LABS: HEMATOCRIT 26.1 % (36.0-47.0); HEMOGLOBIN 8.9 g/dl (12.0-15.5); MEAN CORPUSCULAR HEMOGLOBIN 34.9 pg (27.0-33.0); MEAN CORPUSCULAR HGB CONC 34.1 g/dl (32.0-36.5); MEAN CORPUSCULAR VOLUME 102.4 fl (80.0-96.0); PLATELET COUNT, AUTOMATED 103 10^3/uL (150-450); RED BLOOD COUNT 2.55 10^6/uL (4.00-5.40); WHITE BLOOD COUNT 1.9 10^3/uL (4.0-10.0)
[2021-11-22 07:43] LABS: ALBUMIN 2.7 GM/DL (3.2-5.2); ALT/SGPT 31 U/L (12-78); BILIRUBIN,TOTAL 0.3 MG/DL (0.2-1.0); BLOOD UREA NITROGEN 28 MG/DL (7-18); CARBON DIOXIDE LEVEL 21 MEQ/L (21-32); CHLORIDE LEVEL 115 MEQ/L (98-107); CREATININE FOR GFR 0.99 MG/DL (0.55-1.30); GLOMERULAR FILTRATION RATE > 60.0 (>51); GLUCOSE, FASTING 344 MG/DL (70-100); MAGNESIUM LEVEL 2.2 MG/DL (1.8-2.4); POTASSIUM SERUM 5.1 MEQ/L (3.5-5.1); SODIUM LEVEL 141 MEQ/L (136-145); TOTAL PROTEIN 6.7 GM/DL (6.4-8.2)
[2021-11-22 08:34] LABS: ATYPICAL LYMPH 1 % (0-5); EOSINOPHILS 2 % (0-3); LYMPHOCYTES 37 % (16-44); MONOCYTES 8 % (0-5); NEUTROPHILS 52 % (28-66); PLATELET ESTIMATE DECREASED (NORMAL)
[2021-11-22] MEDS: LEVEMIR (INSULIN DETEMIR) 1 UNITS/0.01ML SC SCH ×2 (09:05→21:31)
[2021-11-22] MEDS: INSULIN LISPRO (NovoLOG) PER UNIT SC SCH ×4 (09:06→21:31)
[2021-11-22] MEDS: rifAXIMin 550 MG TAB (XIFAXAN) PO SCH ×2 (09:06→21:32)
[2021-11-22] MEDS: LORATADINE 10 MG TAB PO SCH (09:06)
[2021-11-22] MEDS: DICYCLOMINE 10 MG CAP PO SCH ×4 (09:06→21:33)
[2021-11-22] MEDS: rOPINIRole 1MG TAB PO SCH ×2 (09:06→21:32)
[2021-11-22] MEDS: VITAMIN D 1,000 INTERNATIONAL UNITS TABLET PO SCH (09:06)
[2021-11-22] MEDS: GABAPENTIN 300 MG CAP PO SCH ×3 (09:06→21:31)
[2021-11-22] MEDS: PANTOPRAZOLE 20 MG TAB PO SCH (09:06)
[2021-11-22] MEDS: FERROUS SULFATE 325MG TAB PO SCH (09:06)
[2021-11-22] MEDS: CARVedilol 12.5 MG TAB PO SCH ×2 (09:07→21:34)
[2021-11-22] MEDS: LOSARTAN 25 MG TAB PO SCH (09:07)
[2021-11-22] MEDS: LACTULOSE 20 GM/30 ML SYRUP UD PO SCH ×4 (09:08→20:11)
[2021-11-22] MEDS: TOPIRAMATE (TopAMAX) 25 MG TAB PO SCH (21:32)
[2021-11-22] MEDS: ESCITALOPRAM OXALATE 10 MG TAB (LEXAPRO) PO SCH (21:33)
[2021-11-22] MEDS: carisoprodoL 350 MG TAB PO PRN (22:05)
[2021-11-23 06:00] VITALS: BP 152/70
[2021-11-23] MEDS: HEPARIN SOD (PORCINE) 5000UNITS/ML 1ML VIAL/SYRINGE SC SCH ×2 (06:00→14:03)
[2021-11-23 06:57] VITALS: BP 148/76
[2021-11-23 08:02] LABS: BASO % 0.9 % (0.0-1.0); EOS # 0.1 10^3/uL (0.0-0.5); HEMATOCRIT 26.6 % (36.0-47.0); HEMOGLOBIN 8.9 g/dl (12.0-15.5); LYMPH % 44.6 % (24.0-44.0); MEAN CORPUSCULAR HEMOGLOBIN 33.5 pg (27.0-33.0); MEAN CORPUSCULAR HGB CONC 33.5 g/dl (32.0-36.5); MONO # 0.2 10^3/uL (0.0-0.8); MONO % 8.7 % (2.0-8.0); NEUTROPHILS % 42.4 % (36.0-66.0); PLATELET COUNT, AUTOMATED 100 10^3/uL (150-450); RED BLOOD COUNT 2.66 10^6/uL (4.00-5.40); WHITE BLOOD COUNT 2.3 10^3/uL (4.0-10.0)
[2021-11-23 08:26] LABS: ALBUMIN 2.6 GM/DL (3.2-5.2); ALT/SGPT 26 U/L (12-78); BILIRUBIN,TOTAL 0.3 MG/DL (0.2-1.0); BLOOD UREA NITROGEN 26 MG/DL (7-18); CALCIUM LEVEL 9.3 MG/DL (8.5-10.1); CARBON DIOXIDE LEVEL 18 MEQ/L (21-32); CHLORIDE LEVEL 117 MEQ/L (98-107); CREATININE FOR GFR 0.85 MG/DL (0.55-1.30); GLOMERULAR FILTRATION RATE > 60.0 (>51); GLUCOSE, FASTING 236 MG/DL (70-100); MAGNESIUM LEVEL 2.1 MG/DL (1.8-2.4); POTASSIUM SERUM 4.6 MEQ/L (3.5-5.1); SODIUM LEVEL 142 MEQ/L (136-145)
[2021-11-23] MEDS: LACTULOSE 20 GM/30 ML SYRUP UD PO SCH ×2 (08:49→13:00)
[2021-11-23] MEDS: LEVEMIR (INSULIN DETEMIR) 1 UNITS/0.01ML SC SCH (08:52)
[2021-11-23] MEDS: rOPINIRole 1MG TAB PO SCH (08:53)
[2021-11-23] MEDS: VITAMIN D 1,000 INTERNATIONAL UNITS TABLET PO SCH (08:53)
[2021-11-23] MEDS: DICYCLOMINE 10 MG CAP PO SCH ×2 (08:53→14:02)
[2021-11-23] MEDS: INSULIN LISPRO (NovoLOG) PER UNIT SC SCH ×2 (08:53→14:02)
[2021-11-23] MEDS: rifAXIMin 550 MG TAB (XIFAXAN) PO SCH (08:53)
[2021-11-23] MEDS: FERROUS SULFATE 325MG TAB PO SCH (08:53)
[2021-11-23] MEDS: LORATADINE 10 MG TAB PO SCH (08:53)
[2021-11-23] MEDS: PANTOPRAZOLE 20 MG TAB PO SCH (08:53)
[2021-11-23] MEDS: GABAPENTIN 300 MG CAP PO SCH (08:54)
[2021-11-23] MEDS: CARVedilol 12.5 MG TAB PO SCH (08:57)
[2021-11-23 08:58] VITALS: BP 136/63
[2021-11-23] MEDS: LOSARTAN 25 MG TAB PO SCH (08:58)
[2021-11-23] MEDS ORDERED: LACT20EL PO (11:54)
[2021-11-23] MEDS ORDERED: BASA100I SC (11:54)
[2021-11-23] MEDS ORDERED: BUME2TAB3 PO (11:54)
== END 2021-11-23 16:23 | disposition home health service (06) ==
LOC: M ED 15:12 → EDBD 15:12 → M ED INP 17:47 → M 4MAIN 23:00
PROVIDERS: ADMIT Family Medicine; ATTEND Internal Medicine
DX: K75.81 Nonalcoholic steatohepatitis (NASH) (principal); U07.1 COVID-19; D61.818 Other pancytopenia; K72.90 Hepatic failure, unspecified without coma; I13.0 Hypertensive heart and chronic kidney disease with heart failure and stage 1 through stage 4 chronic kidney disease, or unspecified chronic kidney disease; I50.32 Chronic diastolic (congestive) heart failure; E87.0 Hyperosmolality and hypernatremia; N18.30 Chronic kidney disease, stage 3 unspecified; E11.42 Type 2 diabetes mellitus with diabetic polyneuropathy; E11.22 Type 2 diabetes mellitus with diabetic chronic kidney disease; E11.65 Type 2 diabetes mellitus with hyperglycemia; E66.01 Morbid (severe) obesity due to excess calories; Z68.41 Body mass index [BMI] 40.0-44.9, adult; F32.A Depression, unspecified; F41.9 Anxiety disorder, unspecified; K21.9 Gastro-esophageal reflux disease without esophagitis; M16.11 Unilateral primary osteoarthritis, right hip; Z90.49 Acquired absence of other specified parts of digestive tract; F17.210 Nicotine dependence, cigarettes, uncomplicated; Z91.14 Patient's other noncompliance with medication regimen; I16.0 Hypertensive urgency; Z20.822 Contact with and (suspected) exposure to COVID-19; Z79.4 Long term (current) use of insulin; Z79.899 Other long term (current) drug therapy; Z88.1 Allergy status to other antibiotic agents; Z88.8 Allergy status to other drugs, medicaments and biological substances; E86.0 Dehydration; E87.6 Hypokalemia; M54.9 Dorsalgia, unspecified; K58.9 Irritable bowel syndrome, unspecified; E55.9 Vitamin D deficiency, unspecified; G25.81 Restless legs syndrome

== ENCOUNTER 2022-01-10 16:36 | Inpatient (IN) | payer MEDICAID, OTHER ==
[~2022-01-10] VITALS: Ht 180.3 cm; Wt 154.9 kg
[~2022-01-10 16:36] MED LIST changes: +ALBU2.5V10 NEB; -ALBU83IN NEB; +LORA-243 PO; +PANT20TA6 PO; +RA M10TA PO; +VITA100093 PO
[2022-01-10] MEDS ORDERED: INSULIN LISPRO (NovoLOG) PER UNIT SC ONE (17:05)
[2022-01-10 17:59] LABS: BASO % 1.2 % (0.0-1.0); EOS # 0.1 10^3/uL (0.0-0.5); HEMATOCRIT 30.4 % (36.0-47.0); HEMOGLOBIN 10.8 g/dl (12.0-15.5); LYMPH # 1.2 10^3/uL (1.5-5.0); LYMPH % 36.7 % (24.0-44.0); MEAN CORPUSCULAR HEMOGLOBIN 34.1 pg (27.0-33.0); MEAN CORPUSCULAR HGB CONC 35.5 g/dl (32.0-36.5); MEAN CORPUSCULAR VOLUME 95.9 fl (80.0-96.0); MONO # 0.3 10^3/uL (0.0-0.8); MONO % 8.3 % (2.0-8.0); NEUTROPHILS # 1.6 10^3/uL (1.5-8.5); NEUTROPHILS % 49.5 % (36.0-66.0); PLATELET COUNT, AUTOMATED 129 10^3/uL (150-450); RED BLOOD COUNT 3.17 10^6/uL (4.00-5.40); WHITE BLOOD COUNT 3.2 10^3/uL (4.0-10.0)
[2022-01-10 18:32] LABS: ALBUMIN 2.8 GM/DL (3.2-5.2); BILIRUBIN,DIRECT 0.2 MG/DL (0.0-0.2); BILIRUBIN,TOTAL 0.5 MG/DL (0.2-1.0); CALCIUM LEVEL 8.8 MG/DL (8.5-10.1); CREATININE FOR GFR 1.25 MG/DL (0.55-1.30); GLOMERULAR FILTRATION RATE 47.4 (>51); POTASSIUM SERUM 4.1 MEQ/L (3.5-5.1); THYROID STIMULATING HORMONE 1.6 uIU/ML (0.358-3.740); TOTAL PROTEIN 6.7 GM/DL (6.4-8.2)
[2022-01-10] MEDS ORDERED: DOCU100C16 PO (19:57)
[2022-01-10] MEDS ORDERED: OMEP1CAP73 PO (19:57)
[2022-01-10] MEDS ORDERED: MIRA3350 PO (19:57)
[2022-01-10] MEDS ORDERED: FLON1SPR NARES (19:57)
[2022-01-10] MEDS ORDERED: ONDA-83 PO (19:57)
[2022-01-10] MEDS ORDERED: CARV25TA PO (19:57)
[2022-01-10] MEDS ORDERED: BUME2TAB3 PO (19:57)
[2022-01-10] MEDS ORDERED: MELA1TAB9 PO (19:57)
[2022-01-10] MEDS ORDERED: BASA100I SC (19:57)
[2022-01-10] MEDS ORDERED: ALBU2.5V10 INH (19:57)
[2022-01-10] MEDS ORDERED: LOSA50TA28 PO (19:57)
[2022-01-10] MEDS ORDERED: K-TA10TA2 PO (19:57)
[2022-01-10] MEDS ORDERED: LACT20EL PO (19:57)
[2022-01-10] MEDS ORDERED: HOME MED LIST COMPLETE! XX SCH (20:00)
[2022-01-10 20:22] LABS: RSV AMPLIFICATION NEGATIVE (NEGATIVE)
[2022-01-10] MEDS ORDERED: GLUCAGON INJ 1MG VIAL SC PRN (21:10)
[2022-01-10] MEDS ORDERED: NS 1,000 ML IV SCH (21:10)
[2022-01-10] MEDS ORDERED: DEXTROSE 50% 50 ML SYRINGE IV PRN (21:10)
[2022-01-10] MEDS ORDERED: ACETAMINOPHEN TAB 650MG DOSE (2X325MG) PO PRN (21:10)
[2022-01-10] MEDS ORDERED: GLUCOSE 4GM CHEW TABLET PO PRN (21:10)
[2022-01-10] MEDS: INSULIN LISPRO (NovoLOG) PER UNIT SC SCH (22:13)
[2022-01-10] MEDS ORDERED: ALBUTEROL SULFATE 2.5 MG/0.5 ML INH NEB SOLN INH PRN (22:25)
[2022-01-10] MEDS: LACTULOSE 20 GM/30 ML SYRUP UD PO SCH (22:50)
[2022-01-10] MEDS: LEVEMIR (INSULIN DETEMIR) 1 UNITS/0.01ML SC SCH (22:51)
[2022-01-10] MEDS: GABAPENTIN 300 MG CAP PO SCH (22:51)
[2022-01-10] MEDS: TOPIRAMATE (TopAMAX) 25 MG TAB PO SCH (22:52)
[2022-01-10] MEDS: CARVedilol 12.5 MG TAB PO SCH (22:52)
[2022-01-10] MEDS: POTASSIUM CHLORIDE 10MEQ SR TABLET PO SCH (22:53)
[2022-01-10 23:10] VITALS: BP 147/66
[2022-01-11] MEDS: rOPINIRole 2MG TAB PO SCH ×3 (00:22→20:20)
[2022-01-11] MEDS: rifAXIMin 550 MG TAB (XIFAXAN) PO SCH ×3 (00:23→20:20)
[2022-01-11 00:28] LABS: VENOUS BASE EXCESS -0.6 (-2.0-2.0); VENOUS O2 SATURATION 81.6 % (60.0-80.0); VENOUS PARTIAL PRESSURE O2 48.2 mmHg (30.0-50.0); VENOUS PH 7.362 UNITS (7.330-7.430); VENOUS STANDARD HCO3 23.6 MEQ/L; VENOUS TOTAL CO2 26.3 MEQ/L (24.0-28.0)
[2022-01-11 03:01] LABS: APPEARANCE, URINE CLOUDY (CLEAR); BACTERIA, URINE AUTO 2+ (NEGATIVE); BILIRUBIN, URINE AUTO NEGATIVE (NEGATIVE); BLOOD, URINE BLOOD 1+ (NEGATIVE); COLOR, URINE YELLOW (YELLOW); GLUCOSE, URINE (UA) AUTO 2+ mg/dL (NEGATIVE); KETONE, URINE AUTO NEGATIVE (NEGATIVE); LEUKOCYTE ESTERASE, URINE AUTO 2+ (NEGATIVE); MUCUS, URINE SMALL (NEGATIVE); NITRITE, URINE AUTO NEGATIVE (NEGATIVE); PROTEIN, URINE AUTO NEGATIVE (NEGATIVE); RBC, URINE AUTO 6 /HPF (0-3); SPECIFIC GRAVITY URINE AUTO 1.012 (1.002-1.035); SQUAMOUS EPITHELIAL CELL UR AU 10 /HPF (0-6); UROBILINOGEN, URINE AUTO 0.2 mg/dL (0.0-2.0); WBC, URINE AUTO 8 /HPF (0-3)
[2022-01-11 04:00] VITALS: BP 136/77
[2022-01-11] MEDS: HEPARIN SOD (PORCINE) 5000UNITS/ML 1ML VIAL/SYRINGE SC SCH ×3 (05:34→21:34)
[2022-01-11] MEDS ORDERED: NYSTATIN CREAM 15 GM TOP PRN (06:35)
[2022-01-11] MEDS: INSULIN LISPRO (NovoLOG) PER UNIT SC SCH ×4 (07:30→20:21)
[2022-01-11 07:45] LABS: HEMATOCRIT 30.6 % (36.0-47.0); HEMOGLOBIN 10.6 g/dl (12.0-15.5); MEAN CORPUSCULAR HEMOGLOBIN 33.2 pg (27.0-33.0); MEAN CORPUSCULAR HGB CONC 34.6 g/dl (32.0-36.5); MEAN CORPUSCULAR VOLUME 95.9 fl (80.0-96.0); PLATELET COUNT, AUTOMATED 122 10^3/uL (150-450); RED BLOOD COUNT 3.19 10^6/uL (4.00-5.40); WHITE BLOOD COUNT 2.9 10^3/uL (4.0-10.0)
[2022-01-11 08:16] LABS: BLOOD UREA NITROGEN 35 MG/DL (7-18); CALCIUM LEVEL 8.8 MG/DL (8.5-10.1); CARBON DIOXIDE LEVEL 24 MEQ/L (21-32); CHLORIDE LEVEL 110 MEQ/L (98-107); CREATININE FOR GFR 0.98 MG/DL (0.55-1.30); GLOMERULAR FILTRATION RATE > 60.0 (>51); GLUCOSE, FASTING 305 MG/DL (70-100); POTASSIUM SERUM 3.7 MEQ/L (3.5-5.1); SODIUM LEVEL 141 MEQ/L (136-145)
[2022-01-11 08:19] VITALS: BP 132/60
[2022-01-11] MEDS: LACTULOSE 20 GM/30 ML SYRUP UD PO SCH ×4 (08:45→20:19)
[2022-01-11] MEDS: NYSTATIN 100,000 UNITS/GM TOPICAL PWD 15 GM TOP SCH (08:45)
[2022-01-11] MEDS: OMEPRAZOLE 20MG CAP PO SCH (08:46)
[2022-01-11] MEDS: GABAPENTIN 300 MG CAP PO SCH ×3 (08:46→20:21)
[2022-01-11] MEDS: CARVedilol 12.5 MG TAB PO SCH ×2 (08:47→20:20)
[2022-01-11] MEDS: FERROUS SULFATE 325MG TAB PO SCH (08:47)
[2022-01-11] MEDS: ESCITALOPRAM OXALATE 10 MG TAB (LEXAPRO) PO SCH (08:48)
[2022-01-11] MEDS ORDERED: LOSARTAN 50MG TABLET PO SCH (09:00)
[2022-01-11] MEDS ORDERED: FLUTICASONE PROP 0.05% NASAL SPRAY 16 GM (FLONASE) NARES SCH (09:00)
[2022-01-11 10:12] LABS: INR 0.99; PROTHROMBIN TIME 13.5 SECONDS (12.7-14.5)
[2022-01-11 11:01] LABS: ALBUMIN 2.7 GM/DL (3.2-5.2); ALT/SGPT 23 U/L (12-78); BILIRUBIN,TOTAL 0.3 MG/DL (0.2-1.0); TOTAL PROTEIN 6.5 GM/DL (6.4-8.2)
[2022-01-11 12:00] VITALS: BP 142/67
[2022-01-11 16:01] VITALS: BP 140/76
[2022-01-11 20:00] VITALS: BP 149/70
[2022-01-11] MEDS: TOPIRAMATE (TopAMAX) 25 MG TAB PO SCH (20:20)
[2022-01-11] MEDS: LEVEMIR (INSULIN DETEMIR) 1 UNITS/0.01ML SC SCH (20:21)
[2022-01-11] MEDS: POTASSIUM CHLORIDE 10MEQ SR TABLET PO SCH (20:21)
[2022-01-11] MEDS ORDERED: GABAPENTIN 300 MG CAP PO ONE (22:25)
[2022-01-11] MEDS: RAMELTEON 8 MG TAB (ROZEREM) PO PRN (22:57)
[2022-01-12 04:00] VITALS: BP 144/65
[2022-01-12] MEDS: HEPARIN SOD (PORCINE) 5000UNITS/ML 1ML VIAL/SYRINGE SC SCH ×3 (05:43→21:11)
[2022-01-12 06:57] LABS: HEMATOCRIT 30.4 % (36.0-47.0); HEMOGLOBIN 10.6 g/dl (12.0-15.5); MEAN CORPUSCULAR HEMOGLOBIN 33.5 pg (27.0-33.0); MEAN CORPUSCULAR HGB CONC 34.9 g/dl (32.0-36.5); MEAN CORPUSCULAR VOLUME 96.2 fl (80.0-96.0); PLATELET COUNT, AUTOMATED 104 10^3/uL (150-450); RED BLOOD COUNT 3.16 10^6/uL (4.00-5.40); WHITE BLOOD COUNT 2.8 10^3/uL (4.0-10.0)
[2022-01-12 07:29] LABS: ALBUMIN 2.7 GM/DL (3.2-5.2); ALT/SGPT 30 U/L (12-78); BILIRUBIN,TOTAL 0.5 MG/DL (0.2-1.0); BLOOD UREA NITROGEN 25 MG/DL (7-18); CALCIUM LEVEL 8.8 MG/DL (8.5-10.1); CARBON DIOXIDE LEVEL 24 MEQ/L (21-32); CHLORIDE LEVEL 109 MEQ/L (98-107); CREATININE FOR GFR 0.95 MG/DL (0.55-1.30); GLOMERULAR FILTRATION RATE > 60.0 (>51); GLUCOSE, FASTING 337 MG/DL (70-100); POTASSIUM SERUM 4.2 MEQ/L (3.5-5.1); SODIUM LEVEL 138 MEQ/L (136-145); TOTAL PROTEIN 6.4 GM/DL (6.4-8.2)
[2022-01-12 08:04] VITALS: BP 130/60
[2022-01-12] MEDS: LACTULOSE 20 GM/30 ML SYRUP UD PO SCH ×4 (08:28→21:00)
[2022-01-12] MEDS: ESCITALOPRAM OXALATE 10 MG TAB (LEXAPRO) PO SCH (08:28)
[2022-01-12] MEDS: rOPINIRole 2MG TAB PO SCH ×2 (08:28→21:01)
[2022-01-12] MEDS: FERROUS SULFATE 325MG TAB PO SCH (08:28)
[2022-01-12] MEDS: GABAPENTIN 300 MG CAP PO SCH ×3 (08:28→21:00)
[2022-01-12] MEDS: CARVedilol 12.5 MG TAB PO SCH ×2 (08:28→21:00)
[2022-01-12] MEDS: rifAXIMin 550 MG TAB (XIFAXAN) PO SCH ×2 (08:28→21:00)
[2022-01-12] MEDS: OMEPRAZOLE 20MG CAP PO SCH (08:29)
[2022-01-12] MEDS: INSULIN LISPRO (NovoLOG) PER UNIT SC SCH ×5 (08:29→22:00)
[2022-01-12] MEDS: NYSTATIN 100,000 UNITS/GM TOPICAL PWD 15 GM TOP SCH (08:29)
[2022-01-12 15:49] VITALS: BP 142/67
[2022-01-12 21:00] VITALS: BP 154/66
[2022-01-12] MEDS ORDERED: LEVEMIR (INSULIN DETEMIR) 1 UNITS/0.01ML SC SCH (21:00)
[2022-01-12] MEDS: POTASSIUM CHLORIDE 10MEQ SR TABLET PO SCH (21:00)
[2022-01-12] MEDS: TOPIRAMATE (TopAMAX) 25 MG TAB PO SCH (21:01)
[2022-01-12] MEDS: RAMELTEON 8 MG TAB (ROZEREM) PO PRN (22:30)
[2022-01-13] MEDS ORDERED: GABAPENTIN 300 MG CAP PO ONE (04:00)
[2022-01-13] MEDS: HEPARIN SOD (PORCINE) 5000UNITS/ML 1ML VIAL/SYRINGE SC SCH (05:22)
[2022-01-13 05:59] LABS: HEMATOCRIT 28.4 % (36.0-47.0); MEAN CORPUSCULAR HEMOGLOBIN 34.2 pg (27.0-33.0); MEAN CORPUSCULAR HGB CONC 35.2 g/dl (32.0-36.5); MEAN CORPUSCULAR VOLUME 97.3 fl (80.0-96.0); PLATELET COUNT, AUTOMATED 105 10^3/uL (150-450); RED BLOOD COUNT 2.92 10^6/uL (4.00-5.40)
[2022-01-13 06:25] LABS: ALBUMIN 2.5 GM/DL (3.2-5.2); ALT/SGPT 30 U/L (12-78); BILIRUBIN,TOTAL 0.7 MG/DL (0.2-1.0); BLOOD UREA NITROGEN 24 MG/DL (7-18); CALCIUM LEVEL 8.6 MG/DL (8.5-10.1); CARBON DIOXIDE LEVEL 23 MEQ/L (21-32); CHLORIDE LEVEL 111 MEQ/L (98-107); CREATININE FOR GFR 0.88 MG/DL (0.55-1.30); GLOMERULAR FILTRATION RATE > 60.0 (>51); GLUCOSE, FASTING 330 MG/DL (70-100); SODIUM LEVEL 138 MEQ/L (136-145)
[2022-01-13] MEDS: NYSTATIN 100,000 UNITS/GM TOPICAL PWD 15 GM TOP SCH (07:53)
[2022-01-13] MEDS: ESCITALOPRAM OXALATE 10 MG TAB (LEXAPRO) PO SCH (07:54)
[2022-01-13] MEDS: LACTULOSE 20 GM/30 ML SYRUP UD PO SCH (07:54)
[2022-01-13] MEDS: INSULIN LISPRO (NovoLOG) PER UNIT SC SCH (07:54)
[2022-01-13] MEDS: rOPINIRole 2MG TAB PO SCH (07:54)
[2022-01-13] MEDS: GABAPENTIN 300 MG CAP PO SCH (07:55)
[2022-01-13] MEDS: OMEPRAZOLE 20MG CAP PO SCH (07:55)
[2022-01-13] MEDS: rifAXIMin 550 MG TAB (XIFAXAN) PO SCH (07:55)
[2022-01-13] MEDS: FERROUS SULFATE 325MG TAB PO SCH (07:56)
[2022-01-13 07:57] VITALS: BP 127/61
[2022-01-13] MEDS: CARVedilol 12.5 MG TAB PO SCH (07:57)
[2022-01-13 08:00] VITALS: BP 127/61
== END 2022-01-13 11:41 | DRG 279 ==
LOC: EDBD 16:36 → M ED 16:36 → M ED INP 21:44 → ENRESERV 21:52 → M PCU 23:11
PROVIDERS: ADMIT Internal Medicine; ATTEND Family Medicine
DX: K72.90 Hepatic failure, unspecified without coma (principal); D61.818 Other pancytopenia; N17.9 Acute kidney failure, unspecified; Z68.42 Body mass index [BMI] 45.0-49.9, adult; I11.0 Hypertensive heart disease with heart failure; D69.6 Thrombocytopenia, unspecified; E66.01 Morbid (severe) obesity due to excess calories; I50.32 Chronic diastolic (congestive) heart failure; K75.81 Nonalcoholic steatohepatitis (NASH); E11.9 Type 2 diabetes mellitus without complications; E78.5 Hyperlipidemia, unspecified; F32.A Depression, unspecified; G25.81 Restless legs syndrome; G47.33 Obstructive sleep apnea (adult) (pediatric); J45.909 Unspecified asthma, uncomplicated; K21.9 Gastro-esophageal reflux disease without esophagitis; F41.9 Anxiety disorder, unspecified; Z79.899 Other long term (current) drug therapy; M19.90 Unspecified osteoarthritis, unspecified site; E55.9 Vitamin D deficiency, unspecified; Z95.2 Presence of prosthetic heart valve; Z87.442 Personal history of urinary calculi; Z87.891 Personal history of nicotine dependence; Z79.4 Long term (current) use of insulin; Z91.018 Allergy to other foods; Z88.8 Allergy status to other drugs, medicaments and biological substances; K74.60 Unspecified cirrhosis of liver

== ENCOUNTER 2022-01-16 16:03 | Emergency (ER) | payer MEDICAID ==
[~2022-01-16] VITALS: Ht 182.9 cm; Wt 154.6 kg
[~2022-01-16 16:03] MED LIST changes: +ALBU2.5V10 INH; +FLON1SPR NARES; +K-TA10TA2 PO; +MIRA3350 PO; +ONDA-83 PO
[2022-01-16 17:56] LABS: EOS # 0.1 10^3/uL (0.0-0.5); EOS % 3.1 % (0.0-3.0); HEMATOCRIT 32.7 % (36.0-47.0); HEMOGLOBIN 11.5 g/dl (12.0-15.5); LYMPH % 26.7 % (24.0-44.0); MEAN CORPUSCULAR HEMOGLOBIN 34.1 pg (27.0-33.0); MEAN CORPUSCULAR HGB CONC 35.2 g/dl (32.0-36.5); MONO # 0.3 10^3/uL (0.0-0.8); MONO % 6.7 % (2.0-8.0); NEUTROPHILS # 2.4 10^3/uL (1.5-8.5); NEUTROPHILS % 62.2 % (36.0-66.0); PLATELET COUNT, AUTOMATED 121 10^3/uL (150-450); RED BLOOD COUNT 3.37 10^6/uL (4.00-5.40); WHITE BLOOD COUNT 3.9 10^3/uL (4.0-10.0)
[2022-01-16 18:43] LABS: C REACTIVE PROTEIN QUANTITATIV 1.38 MG/DL (0.00-0.30); CALCIUM LEVEL 9.9 MG/DL (8.5-10.1); CREATININE FOR GFR 1.03 MG/DL (0.55-1.30); GLOMERULAR FILTRATION RATE 59.2 (>51); POTASSIUM SERUM 4.7 MEQ/L (3.5-5.1)
[2022-01-16 18:59] LABS: ERYTHROCYTE SEDIMENTATION RATE 72 mm/hr (0-30)
[2022-01-16] MEDS ORDERED: NORCO, ANEXSIA 5/325MG TABLET (HYDROcodone/ACETAMINOPHEN) PO ONE (19:35)
[2022-01-16] MEDS ORDERED: VANCOMYCIN HCL 2,000 MG in IV FLUID PLACE HOLDER 1 EA IV ONE (20:35)
[2022-01-16] MEDS ORDERED: VANCOMYCIN HCL 1,000 MG, VIAL MATE ADAPTER 1 EACH in NS 250 ML IV ONE ×2 (21:00→22:00)
[2022-01-16] MEDS ORDERED: DOXY-443 PO (21:47)
[2022-01-17 01:30] VITALS: BP 122/58
[2022-01-17] MEDS ORDERED: DOXY-443 PO (01:52)
== END 2022-01-17 02:05 | disposition home or self-care (01) ==
LOC: M ED 16:03
DX: L03.116 Cellulitis of left lower limb (principal); E66.9 Obesity, unspecified; E11.9 Type 2 diabetes mellitus without complications; I10 Essential (primary) hypertension; J45.909 Unspecified asthma, uncomplicated; K21.9 Gastro-esophageal reflux disease without esophagitis; K75.81 Nonalcoholic steatohepatitis (NASH); F17.200 Nicotine dependence, unspecified, uncomplicated; Z79.4 Long term (current) use of insulin; Z79.899 Other long term (current) drug therapy; Z91.018 Allergy to other foods; Z88.0 Allergy status to penicillin; Z88.1 Allergy status to other antibiotic agents; Z88.8 Allergy status to other drugs, medicaments and biological substances
CPT/HCPCS: 80048; 85025; 85652; 86140; 93971; 96365; 99284; J3370

== ENCOUNTER → 2022-01-25 | Outpatient (REF) | PROVIDERS: ATTEND Family Medicine | DX: Z20.822 Contact with and (suspected) exposure to COVID-19 (principal); Z53.9 Procedure and treatment not carried out, unspecified reason ==

== ENCOUNTER → 2022-02-11 | Outpatient (REF) | payer MEDICAID ==
[~2022-02-11] MED LIST changes: +LEVO1TAB40 PO; -LEVO750T13 PO; +NYST-13 TOP; -NYST10CR TOP
[2022-02-12 11:41] LABS: APPEARANCE, URINE CLEAR (CLEAR); BILIRUBIN, URINE AUTO NEGATIVE (NEGATIVE); BLOOD, URINE BLOOD NEGATIVE (NEGATIVE); COLOR, URINE YELLOW (YELLOW); GLUCOSE, URINE (UA) AUTO NEGATIVE (NEGATIVE); KETONE, URINE AUTO NEGATIVE (NEGATIVE); LEUKOCYTE ESTERASE, URINE AUTO NEGATIVE (NEGATIVE); NITRITE, URINE AUTO NEGATIVE (NEGATIVE); PROTEIN, URINE AUTO NEGATIVE (NEGATIVE); SPECIFIC GRAVITY URINE AUTO 1.013 (1.002-1.035); UROBILINOGEN, URINE AUTO 0.2 mg/dL (0.0-2.0)
[2022-02-12 11:47] LABS: BACTERIA, URINE AUTO NEGATIVE (NEGATIVE); MUCUS, URINE SMALL (NEGATIVE); RBC, URINE AUTO 0 /HPF (0-3); SQUAMOUS EPITHELIAL CELL UR AU 1 /HPF (0-6); WBC, URINE AUTO 1 /HPF (0-3)
[2022-02-12 13:00] LABS: CREATININE, URINE 85.7 MG/DL; MALB URINE SIEMENS 6.6 MG/L; MAU/CREAT RATIO 7.7 MCG/MG (0.0-30.0)
== END ==
PROVIDERS: ATTEND Family Medicine
DX: I10 Essential (primary) hypertension (principal); E11.65 Type 2 diabetes mellitus with hyperglycemia

== ENCOUNTER → 2022-02-12 | Outpatient (REF) ==
[2022-02-12 10:41] LABS: EOS # 0.1 10^3/uL (0.0-0.5); EOS % 4.5 % (0.0-3.0); HEMATOCRIT 29.4 % (36.0-47.0); LYMPH # 1.1 10^3/uL (1.5-5.0); LYMPH % 37.8 % (24.0-44.0); MEAN CORPUSCULAR HEMOGLOBIN 33.4 pg (27.0-33.0); MEAN CORPUSCULAR VOLUME 98.3 fl (80.0-96.0); MONO # 0.2 10^3/uL (0.0-0.8); NEUTROPHILS # 1.4 10^3/uL (1.5-8.5); NEUTROPHILS % 48.4 % (36.0-66.0); RED BLOOD COUNT 2.99 10^6/uL (4.00-5.40); WHITE BLOOD COUNT 2.9 10^3/uL (4.0-10.0)
[2022-02-12 11:04] LABS: PLATELET COUNT, AUTOMATED 85 10^3/uL (150-450)
[2022-02-12 11:53] LABS: ALBUMIN 2.7 GM/DL (3.2-5.2); BILIRUBIN,TOTAL 0.5 MG/DL (0.2-1.0); CALCIUM LEVEL 8.9 MG/DL (8.5-10.1); CHOLESTEROL RISK RATIO 1.97 (<5); CREATININE FOR GFR 1.18 MG/DL (0.55-1.30); GLOMERULAR FILTRATION RATE 50.6 (>51); POTASSIUM SERUM 4.8 MEQ/L (3.5-5.1); THYROID STIMULATING HORMONE 3.4 uIU/ML (0.358-3.740); TOTAL PROTEIN 6.8 GM/DL (6.4-8.2)
[2022-02-12 16:56] LABS: HEMOGLOBIN A1c 11.2 %
== END ==
PROVIDERS: ATTEND Family Medicine
DX: I10 Essential (primary) hypertension (principal); E11.65 Type 2 diabetes mellitus with hyperglycemia

== ENCOUNTER 2022-02-17 09:04 | Inpatient (IN) | payer MEDICAID ==
[~2022-02-17] VITALS: Ht 182.9 cm; Wt 162.2 kg
[2022-02-17 10:24] LABS: BASO % 1.2 % (0.0-1.0); EOS # 0.1 10^3/uL (0.0-0.5); EOS % 3.5 % (0.0-3.0); HEMATOCRIT 28.9 % (36.0-47.0); HEMOGLOBIN 10.1 g/dl (12.0-15.5); LYMPH # 0.9 10^3/uL (1.5-5.0); LYMPH % 35.4 % (24.0-44.0); MEAN CORPUSCULAR HEMOGLOBIN 33.9 pg (27.0-33.0); MEAN CORPUSCULAR HGB CONC 34.9 g/dl (32.0-36.5); MONO # 0.3 10^3/uL (0.0-0.8); MONO % 10.2 % (2.0-8.0); NEUTROPHILS # 1.3 10^3/uL (1.5-8.5); NEUTROPHILS % 49.3 % (36.0-66.0); RED BLOOD COUNT 2.98 10^6/uL (4.00-5.40); WHITE BLOOD COUNT 2.5 10^3/uL (4.0-10.0)
[2022-02-17 10:32] LABS: PLATELET COUNT, AUTOMATED 92 10^3/uL (150-450)
[2022-02-17 10:52] LABS: INR 1.09; PROTHROMBIN TIME 14.5 SECONDS (12.7-14.5)
[2022-02-17 11:01] LABS: RSV AMPLIFICATION NEGATIVE (NEGATIVE)
[2022-02-17 11:10] LABS: ALBUMIN 2.9 GM/DL (3.2-5.2); BILIRUBIN,DIRECT 0.2 MG/DL (0.0-0.2); BILIRUBIN,TOTAL 0.6 MG/DL (0.2-1.0); CALCIUM LEVEL 8.5 MG/DL (8.5-10.1); CREATININE FOR GFR 1.11 MG/DL (0.55-1.30); GLOMERULAR FILTRATION RATE 54.3 (>51); POTASSIUM SERUM 3.8 MEQ/L (3.5-5.1)
[2022-02-17] MEDS ORDERED: LACTULOSE 20 GM/30 ML SYRUP UD PO ONE (11:15)
[2022-02-17] MEDS ORDERED: ADME100I SC (11:59)
[2022-02-17] MEDS ORDERED: HOME MED LIST COMPLETE! XX SCH (12:00)
[2022-02-17] MEDS ORDERED: GLUCOSE 4GM CHEW TABLET PO PRN (12:40)
[2022-02-17] MEDS ORDERED: GLUCAGON INJ 1MG VIAL SC PRN (12:40)
[2022-02-17] MEDS ORDERED: DEXTROSE 50% 50 ML SYRINGE IV PRN (12:40)
[2022-02-17] MEDS: INSULIN LISPRO (NovoLOG) PER UNIT SC SCH ×4 (17:00→20:21)
[2022-02-17] MEDS: GABAPENTIN 300 MG CAP PO SCH ×2 (17:19→20:30)
[2022-02-17] MEDS: FERROUS SULFATE 325MG TAB PO SCH (17:19)
[2022-02-17] MEDS: OMEPRAZOLE 20MG CAP PO SCH (17:19)
[2022-02-17] MEDS: MECLIZINE 25 MG TABLET PO SCH ×2 (17:19→20:30)
[2022-02-17] MEDS: ESCITALOPRAM OXALATE 10 MG TAB (LEXAPRO) PO SCH (17:19)
[2022-02-17] MEDS: LACTULOSE 20 GM/30 ML SYRUP UD PO SCH ×2 (17:19→20:29)
[2022-02-17 19:27] VITALS: BP 138/73
[2022-02-17] MEDS: TOPIRAMATE (TopAMAX) 25 MG TAB PO SCH (20:29)
[2022-02-17] MEDS: rifAXIMin 550 MG TAB (XIFAXAN) PO SCH (20:29)
[2022-02-17] MEDS: POTASSIUM CHLORIDE 10MEQ SR TABLET PO SCH (20:29)
[2022-02-17] MEDS: rOPINIRole 2MG TAB PO SCH (20:29)
[2022-02-17] MEDS: DOCUSATE SODIUM 100MG CAPSULE PO SCH (20:29)
[2022-02-17] MEDS: LOSARTAN 25 MG TAB PO SCH (20:30)
[2022-02-17] MEDS: LEVEMIR (INSULIN DETEMIR) 1 UNITS/0.01ML SC SCH (20:30)
[2022-02-17] MEDS: CARVedilol 12.5 MG TAB PO SCH (20:30)
[2022-02-18] MEDS: LACTULOSE 20 GM/30 ML SYRUP UD PO SCH ×6 (00:22→20:58)
[2022-02-18 06:23] VITALS: BP 140/67
[2022-02-18 06:25] LABS: BASO % 1.1 % (0.0-1.0); EOS # 0.1 10^3/uL (0.0-0.5); EOS % 3.9 % (0.0-3.0); HEMATOCRIT 28.7 % (36.0-47.0); HEMOGLOBIN 9.7 g/dl (12.0-15.5); LYMPH # 1.1 10^3/uL (1.5-5.0); LYMPH % 39.8 % (24.0-44.0); MEAN CORPUSCULAR HEMOGLOBIN 33.7 pg (27.0-33.0); MEAN CORPUSCULAR HGB CONC 33.8 g/dl (32.0-36.5); MEAN CORPUSCULAR VOLUME 99.7 fl (80.0-96.0); MONO # 0.2 10^3/uL (0.0-0.8); MONO % 8.6 % (2.0-8.0); NEUTROPHILS # 1.3 10^3/uL (1.5-8.5); NEUTROPHILS % 46.2 % (36.0-66.0); RED BLOOD COUNT 2.88 10^6/uL (4.00-5.40); WHITE BLOOD COUNT 2.8 10^3/uL (4.0-10.0)
[2022-02-18 06:33] LABS: PLATELET COUNT, AUTOMATED 89 10^3/uL (150-450)
[2022-02-18 07:03] LABS: BLOOD UREA NITROGEN 27 MG/DL (7-18); CALCIUM LEVEL 8.8 MG/DL (8.5-10.1); CARBON DIOXIDE LEVEL 21 MEQ/L (21-32); CHLORIDE LEVEL 120 MEQ/L (98-107); CREATININE FOR GFR 0.92 MG/DL (0.55-1.30); GLOMERULAR FILTRATION RATE > 60.0 (>51); GLUCOSE, FASTING 164 MG/DL (70-100); POTASSIUM SERUM 4.1 MEQ/L (3.5-5.1); SODIUM LEVEL 145 MEQ/L (136-145)
[2022-02-18] MEDS: INSULIN LISPRO (NovoLOG) PER UNIT SC SCH ×7 (08:11→20:50)
[2022-02-18] MEDS: rOPINIRole 2MG TAB PO SCH ×2 (08:12→20:58)
[2022-02-18] MEDS: MECLIZINE 25 MG TABLET PO SCH ×3 (08:12→20:59)
[2022-02-18] MEDS: LEVEMIR (INSULIN DETEMIR) 1 UNITS/0.01ML SC SCH ×2 (08:12→20:58)
[2022-02-18] MEDS: DOCUSATE SODIUM 100MG CAPSULE PO SCH ×2 (08:13→21:00)
[2022-02-18] MEDS: LORATADINE 10 MG TAB PO SCH (08:13)
[2022-02-18] MEDS: ESCITALOPRAM OXALATE 10 MG TAB (LEXAPRO) PO SCH (08:13)
[2022-02-18] MEDS: OMEPRAZOLE 20MG CAP PO SCH (08:14)
[2022-02-18] MEDS: CARVedilol 12.5 MG TAB PO SCH ×2 (08:14→21:00)
[2022-02-18] MEDS: GABAPENTIN 300 MG CAP PO SCH ×3 (08:14→20:58)
[2022-02-18] MEDS: rifAXIMin 550 MG TAB (XIFAXAN) PO SCH ×2 (08:15→20:59)
[2022-02-18] MEDS: FERROUS SULFATE 325MG TAB PO SCH (08:15)
[2022-02-18] MEDS: NYSTATIN 100,000 UNITS/GM TOPICAL PWD 15 GM TOP SCH ×2 (11:10→21:00)
[2022-02-18 20:44] VITALS: BP 161/77
[2022-02-18] MEDS: TOPIRAMATE (TopAMAX) 25 MG TAB PO SCH (20:58)
[2022-02-18] MEDS: LOSARTAN 25 MG TAB PO SCH (20:59)
[2022-02-18] MEDS: POTASSIUM CHLORIDE 10MEQ SR TABLET PO SCH (21:00)
[2022-02-19] MEDS: LACTULOSE 20 GM/30 ML SYRUP UD PO SCH ×6 (00:32→19:55)
[2022-02-19 04:58] VITALS: BP 152/72
[2022-02-19 07:25] LABS: EOS # 0.1 10^3/uL (0.0-0.5); EOS % 3.8 % (0.0-3.0); HEMATOCRIT 31.2 % (36.0-47.0); HEMOGLOBIN 10.5 g/dl (12.0-15.5); LYMPH # 1.1 10^3/uL (1.5-5.0); LYMPH % 39.2 % (24.0-44.0); MEAN CORPUSCULAR HGB CONC 33.7 g/dl (32.0-36.5); MEAN CORPUSCULAR VOLUME 98.1 fl (80.0-96.0); MONO # 0.2 10^3/uL (0.0-0.8); NEUTROPHILS # 1.4 10^3/uL (1.5-8.5); NEUTROPHILS % 47.7 % (36.0-66.0); RED BLOOD COUNT 3.18 10^6/uL (4.00-5.40); WHITE BLOOD COUNT 2.9 10^3/uL (4.0-10.0)
[2022-02-19 07:42] LABS: PLATELET COUNT, AUTOMATED 96 10^3/uL (150-450)
[2022-02-19 07:45] LABS: BLOOD UREA NITROGEN 21 MG/DL (7-18); CARBON DIOXIDE LEVEL 18 MEQ/L (21-32); CHLORIDE LEVEL 120 MEQ/L (98-107); GLOMERULAR FILTRATION RATE > 60.0 (>51); GLUCOSE, FASTING 156 MG/DL (70-100); SODIUM LEVEL 144 MEQ/L (136-145)
[2022-02-19] MEDS: INSULIN LISPRO (NovoLOG) PER UNIT SC SCH ×7 (08:11→21:00)
[2022-02-19] MEDS: DOCUSATE SODIUM 100MG CAPSULE PO SCH ×2 (08:13→22:07)
[2022-02-19] MEDS: FERROUS SULFATE 325MG TAB PO SCH (08:13)
[2022-02-19] MEDS: rOPINIRole 2MG TAB PO SCH ×2 (08:14→22:06)
[2022-02-19] MEDS: OMEPRAZOLE 20MG CAP PO SCH (08:14)
[2022-02-19] MEDS: rifAXIMin 550 MG TAB (XIFAXAN) PO SCH ×2 (08:15→22:07)
[2022-02-19] MEDS: GABAPENTIN 300 MG CAP PO SCH ×3 (08:15→22:07)
[2022-02-19] MEDS: CARVedilol 12.5 MG TAB PO SCH ×2 (08:15→22:07)
[2022-02-19] MEDS: MECLIZINE 25 MG TABLET PO SCH ×3 (08:15→22:08)
[2022-02-19] MEDS: ESCITALOPRAM OXALATE 10 MG TAB (LEXAPRO) PO SCH (08:16)
[2022-02-19] MEDS: LORATADINE 10 MG TAB PO SCH (08:16)
[2022-02-19] MEDS: NYSTATIN 100,000 UNITS/GM TOPICAL PWD 15 GM TOP SCH ×2 (08:20→22:08)
[2022-02-19] MEDS: LEVEMIR (INSULIN DETEMIR) 1 UNITS/0.01ML SC SCH ×2 (08:22→22:08)
[2022-02-19 14:00] VITALS: BP 129/55
[2022-02-19 22:00] VITALS: BP 132/55
[2022-02-19] MEDS: TOPIRAMATE (TopAMAX) 25 MG TAB PO SCH (22:05)
[2022-02-19] MEDS: POTASSIUM CHLORIDE 10MEQ SR TABLET PO SCH (22:06)
[2022-02-19] MEDS: LOSARTAN 25 MG TAB PO SCH (22:07)
[2022-02-20] MEDS ORDERED: IBUPROFEN 600MG TAB PO PRN (02:55)
[2022-02-20] MEDS ORDERED: ACETAMINOPHEN TAB 650MG DOSE (2X325MG) PO PRN (02:55)
[2022-02-20] MEDS: LACTULOSE 20 GM/30 ML SYRUP UD PO SCH ×4 (03:21→12:13)
[2022-02-20 05:56] LABS: BASO % 0.8 % (0.0-1.0); EOS # 0.1 10^3/uL (0.0-0.5); EOS % 3.6 % (0.0-3.0); HEMATOCRIT 27.7 % (36.0-47.0); HEMOGLOBIN 9.2 g/dl (12.0-15.5); LYMPH # 0.9 10^3/uL (1.5-5.0); MEAN CORPUSCULAR HEMOGLOBIN 33.7 pg (27.0-33.0); MEAN CORPUSCULAR HGB CONC 33.2 g/dl (32.0-36.5); MEAN CORPUSCULAR VOLUME 101.5 fl (80.0-96.0); MONO # 0.2 10^3/uL (0.0-0.8); MONO % 8.4 % (2.0-8.0); NEUTROPHILS # 1.3 10^3/uL (1.5-8.5); NEUTROPHILS % 51.2 % (36.0-66.0); RED BLOOD COUNT 2.73 10^6/uL (4.00-5.40); WHITE BLOOD COUNT 2.5 10^3/uL (4.0-10.0)
[2022-02-20 05:57] LABS: PLATELET COUNT, AUTOMATED 81 10^3/uL (150-450)
[2022-02-20 06:00] VITALS: BP 132/57
[2022-02-20 06:29] LABS: BLOOD UREA NITROGEN 21 MG/DL (7-18); CALCIUM LEVEL 8.9 MG/DL (8.5-10.1); CARBON DIOXIDE LEVEL 18 MEQ/L (21-32); CHLORIDE LEVEL 118 MEQ/L (98-107); CREATININE FOR GFR 0.87 MG/DL (0.55-1.30); GLOMERULAR FILTRATION RATE > 60.0 (>51); GLUCOSE, FASTING 209 MG/DL (70-100); POTASSIUM SERUM 4.7 MEQ/L (3.5-5.1); SODIUM LEVEL 140 MEQ/L (136-145)
[2022-02-20] MEDS: DOCUSATE SODIUM 100MG CAPSULE PO SCH (09:00)
[2022-02-20] MEDS: OMEPRAZOLE 20MG CAP PO SCH (09:18)
[2022-02-20] MEDS: INSULIN LISPRO (NovoLOG) PER UNIT SC SCH ×4 (09:18→12:13)
[2022-02-20] MEDS: GABAPENTIN 300 MG CAP PO SCH (09:18)
[2022-02-20] MEDS: rifAXIMin 550 MG TAB (XIFAXAN) PO SCH (09:18)
[2022-02-20] MEDS: rOPINIRole 2MG TAB PO SCH (09:18)
[2022-02-20 09:19] VITALS: BP 131/58
[2022-02-20] MEDS: CARVedilol 12.5 MG TAB PO SCH (09:19)
[2022-02-20] MEDS: MECLIZINE 25 MG TABLET PO SCH (09:19)
[2022-02-20] MEDS: FERROUS SULFATE 325MG TAB PO SCH (09:19)
[2022-02-20] MEDS: LORATADINE 10 MG TAB PO SCH (09:19)
[2022-02-20] MEDS: ESCITALOPRAM OXALATE 10 MG TAB (LEXAPRO) PO SCH (09:19)
[2022-02-20] MEDS: LEVEMIR (INSULIN DETEMIR) 1 UNITS/0.01ML SC SCH (09:20)
[2022-02-20] MEDS: NYSTATIN 100,000 UNITS/GM TOPICAL PWD 15 GM TOP SCH (09:20)
== END 2022-02-20 12:30 | DRG 279 ==
LOC: EDBD 09:04 → M ED 09:04 → M ED INP 12:28 → ENRESERV 14:07 → M MS5PR 16:36
PROVIDERS: ADMIT Internal Medicine Nephrology; ATTEND Internal Medicine Nephrology
DX: K72.00 Acute and subacute hepatic failure without coma (principal); K75.81 Nonalcoholic steatohepatitis (NASH); E66.01 Morbid (severe) obesity due to excess calories; I50.32 Chronic diastolic (congestive) heart failure; I11.0 Hypertensive heart disease with heart failure; F32.A Depression, unspecified; F41.9 Anxiety disorder, unspecified; E11.42 Type 2 diabetes mellitus with diabetic polyneuropathy; K21.9 Gastro-esophageal reflux disease without esophagitis; M16.11 Unilateral primary osteoarthritis, right hip; G25.81 Restless legs syndrome; Z79.4 Long term (current) use of insulin; Z79.899 Other long term (current) drug therapy; Z88.1 Allergy status to other antibiotic agents; Z88.8 Allergy status to other drugs, medicaments and biological substances; Z91.018 Allergy to other foods; Z87.891 Personal history of nicotine dependence; R42 Dizziness and giddiness; D61.818 Other pancytopenia; R07.89 Other chest pain

== ENCOUNTER 2022-03-03 11:44 | Observation (INO) | payer MEDICAID ==
[~2022-03-03] VITALS: Ht 182.9 cm; Wt 154.9 kg
[2022-03-03] MEDS ORDERED: NS 1,000 ML IV ONE (12:10)
[2022-03-03] MEDS ORDERED: LACTULOSE 20 GM/30 ML SYRUP UD PO ONE (12:15)
[2022-03-03 13:06] LABS: BASO % 1.1 % (0.0-1.0); EOS # 0.1 10^3/uL (0.0-0.5); EOS % 3.9 % (0.0-3.0); HEMATOCRIT 29.2 % (36.0-47.0); HEMOGLOBIN 10.3 g/dl (12.0-15.5); LYMPH # 0.9 10^3/uL (1.5-5.0); LYMPH % 33.1 % (24.0-44.0); MEAN CORPUSCULAR HEMOGLOBIN 34.6 pg (27.0-33.0); MEAN CORPUSCULAR HGB CONC 35.3 g/dl (32.0-36.5); MONO # 0.2 10^3/uL (0.0-0.8); MONO % 8.2 % (2.0-8.0); NEUTROPHILS # 1.5 10^3/uL (1.5-8.5); NEUTROPHILS % 53.7 % (36.0-66.0); PLATELET COUNT, AUTOMATED 101 10^3/uL (150-450); RED BLOOD COUNT 2.98 10^6/uL (4.00-5.40); WHITE BLOOD COUNT 2.8 10^3/uL (4.0-10.0)
[2022-03-03 13:14] LABS: RSV AMPLIFICATION NEGATIVE (NEGATIVE)
[2022-03-03 13:15] LABS: INR 1.08; PROTHROMBIN TIME 14.4 SECONDS (12.7-14.5)
[2022-03-03] MEDS ORDERED: NYST1POW9 TOP (13:42)
[2022-03-03] MEDS ORDERED: HOME MED LIST COMPLETE! XX SCH (13:45)
[2022-03-03 13:56] LABS: ALBUMIN 3.1 GM/DL (3.2-5.2); BILIRUBIN,DIRECT 0.2 MG/DL (0.0-0.2); BILIRUBIN,TOTAL 0.7 MG/DL (0.2-1.0); CALCIUM LEVEL 9.1 MG/DL (8.5-10.1); CREATININE FOR GFR 1.15 MG/DL (0.55-1.30); GLOMERULAR FILTRATION RATE 52.2 (>51); MB/CK RELATIVE INDEX 1.92 (< OR =4); TOTAL PROTEIN 7.2 GM/DL (6.4-8.2)
[2022-03-03] MEDS ORDERED: LACTULOSE 20 GM/30 ML SYRUP UD PR ONE (14:30)
[2022-03-03] MEDS ORDERED: GLUCOSE 4GM CHEW TABLET PO PRN (16:10)
[2022-03-03] MEDS ORDERED: GLUCAGON INJ 1MG VIAL SC PRN (16:10)
[2022-03-03] MEDS ORDERED: DEXTROSE 50% 50 ML SYRINGE IV PRN (16:10)
[2022-03-03 16:30] VITALS: BP 157/82
[2022-03-03] MEDS ORDERED: ISOVUE-370 76% 100ML VIAL As Ordered ONE (16:42)
[2022-03-03] MEDS: LACTULOSE 20 GM/30 ML SYRUP UD PO SCH ×2 (19:34→23:22)
[2022-03-03] MEDS: INSULIN LISPRO (NovoLOG) PER UNIT SC SCH ×2 (19:34→21:00)
[2022-03-03] MEDS: CARVedilol 12.5 MG TAB PO SCH (21:00)
[2022-03-03] MEDS: LOSARTAN 25 MG TAB PO SCH (21:00)
[2022-03-03 22:00] VITALS: BP 141/59
[2022-03-03] MEDS: rOPINIRole 1MG TAB PO SCH (23:01)
[2022-03-03] MEDS: GABAPENTIN 300 MG CAP PO SCH (23:02)
[2022-03-03] MEDS: DOCUSATE SODIUM 100MG CAPSULE PO SCH (23:08)
[2022-03-03] MEDS: POTASSIUM CHLORIDE 10MEQ SR TABLET PO SCH (23:09)
[2022-03-03] MEDS: BUMETANIDE 1 MG TAB PO SCH (23:11)
[2022-03-03] MEDS: TOPIRAMATE (TopAMAX) 25 MG TAB PO SCH (23:22)
[2022-03-03] MEDS: LEVEMIR (INSULIN DETEMIR) 1 UNITS/0.01ML SC SCH (23:22)
[2022-03-04 06:00] VITALS: BP 107/53
[2022-03-04 06:37] LABS: BASO % 1.1 % (0.0-1.0); EOS # 0.1 10^3/uL (0.0-0.5); HEMATOCRIT 29.8 % (36.0-47.0); HEMOGLOBIN 10.4 g/dl (12.0-15.5); LYMPH # 0.8 10^3/uL (1.5-5.0); LYMPH % 29.5 % (24.0-44.0); MEAN CORPUSCULAR HEMOGLOBIN 34.6 pg (27.0-33.0); MEAN CORPUSCULAR HGB CONC 34.9 g/dl (32.0-36.5); MONO # 0.2 10^3/uL (0.0-0.8); MONO % 7.9 % (2.0-8.0); NEUTROPHILS # 1.6 10^3/uL (1.5-8.5); NEUTROPHILS % 57.1 % (36.0-66.0); RED BLOOD COUNT 3.01 10^6/uL (4.00-5.40); WHITE BLOOD COUNT 2.8 10^3/uL (4.0-10.0)
[2022-03-04 06:49] LABS: PLATELET COUNT, AUTOMATED 95 10^3/uL (150-450)
[2022-03-04 07:06] LABS: CREATININE FOR GFR 1.04 MG/DL (0.55-1.30); GLOMERULAR FILTRATION RATE 58.6 (>51); MAGNESIUM LEVEL 2.2 MG/DL (1.8-2.4); POTASSIUM SERUM 3.4 MEQ/L (3.5-5.1)
[2022-03-04] MEDS ORDERED: POTASSIUM CHLORIDE 10MEQ SR TABLET PO ONE (09:20)
[2022-03-04] MEDS: OMEPRAZOLE 20MG CAP PO SCH (09:33)
[2022-03-04] MEDS: GABAPENTIN 300 MG CAP PO SCH ×2 (09:33→20:07)
[2022-03-04] MEDS: rOPINIRole 1MG TAB PO SCH ×2 (09:33→20:02)
[2022-03-04] MEDS: ESCITALOPRAM OXALATE 5MG TABLET (LEXAPRO) PO SCH (09:33)
[2022-03-04] MEDS: DOCUSATE SODIUM 100MG CAPSULE PO SCH ×2 (09:33→20:02)
[2022-03-04] MEDS: FERROUS SULFATE 325MG TAB PO SCH (09:33)
[2022-03-04] MEDS: LACTULOSE 20 GM/30 ML SYRUP UD PO SCH ×4 (09:33→20:02)
[2022-03-04] MEDS: BUMETANIDE 1 MG TAB PO SCH ×2 (09:34→20:03)
[2022-03-04] MEDS: SPIRONOLACTONE 50 MG TAB PO SCH (09:35)
[2022-03-04] MEDS: INSULIN LISPRO (NovoLOG) PER UNIT SC SCH ×4 (09:35→20:09)
[2022-03-04] MEDS: CARVedilol 12.5 MG TAB PO SCH ×2 (09:35→20:09)
[2022-03-04] MEDS: LEVEMIR (INSULIN DETEMIR) 1 UNITS/0.01ML SC SCH ×2 (09:35→20:02)
[2022-03-04 14:00] VITALS: BP 126/56
[2022-03-04] MEDS ORDERED: APIXABAN 5 MG TAB (ELIQUIS) PO ONE (15:30)
[2022-03-04] MEDS ORDERED: ELIQ5TAB PO (15:50)
[2022-03-04] MEDS: TOPIRAMATE (TopAMAX) 25 MG TAB PO SCH (20:03)
[2022-03-04] MEDS: POTASSIUM CHLORIDE 10MEQ SR TABLET PO SCH (20:09)
[2022-03-04] MEDS: LOSARTAN 25 MG TAB PO SCH (20:10)
[2022-03-04 21:10] VITALS: BP 122/55
[2022-03-04] MEDS ORDERED: traMADol 50 MG TAB PO ONE (22:55)
[2022-03-04] MEDS: RAMELTEON 8 MG TAB (ROZEREM) PO PRN ×2 (23:33→23:35)
[2022-03-04] MEDS: APIXABAN 5 MG TAB (ELIQUIS) PO SCH (23:35)
[2022-03-05 06:00] VITALS: BP 121/55
[2022-03-05 06:05] LABS: EOS # 0.1 10^3/uL (0.0-0.5); EOS % 4.2 % (0.0-3.0); HEMATOCRIT 27.9 % (36.0-47.0); HEMOGLOBIN 9.8 g/dl (12.0-15.5); LYMPH % 33.4 % (24.0-44.0); MEAN CORPUSCULAR HEMOGLOBIN 34.3 pg (27.0-33.0); MEAN CORPUSCULAR HGB CONC 35.1 g/dl (32.0-36.5); MEAN CORPUSCULAR VOLUME 97.6 fl (80.0-96.0); MONO # 0.2 10^3/uL (0.0-0.8); MONO % 7.7 % (2.0-8.0); NEUTROPHILS # 1.5 10^3/uL (1.5-8.5); NEUTROPHILS % 53.4 % (36.0-66.0); RED BLOOD COUNT 2.86 10^6/uL (4.00-5.40); WHITE BLOOD COUNT 2.9 10^3/uL (4.0-10.0)
[2022-03-05 06:10] LABS: PLATELET COUNT, AUTOMATED 96 10^3/uL (150-450)
[2022-03-05 06:56] LABS: CALCIUM LEVEL 8.7 MG/DL (8.5-10.1); CREATININE FOR GFR 1.02 MG/DL (0.55-1.30); GLOMERULAR FILTRATION RATE 59.9 (>51); POTASSIUM SERUM 3.9 MEQ/L (3.5-5.1)
[2022-03-05] MEDS: OMEPRAZOLE 20MG CAP PO SCH (08:51)
[2022-03-05] MEDS: DOCUSATE SODIUM 100MG CAPSULE PO SCH (08:51)
[2022-03-05] MEDS: SPIRONOLACTONE 50 MG TAB PO SCH (08:51)
[2022-03-05] MEDS: LACTULOSE 20 GM/30 ML SYRUP UD PO SCH ×2 (08:51→12:01)
[2022-03-05] MEDS: GABAPENTIN 300 MG CAP PO SCH (08:51)
[2022-03-05] MEDS: ESCITALOPRAM OXALATE 5MG TABLET (LEXAPRO) PO SCH (08:51)
[2022-03-05] MEDS: APIXABAN 5 MG TAB (ELIQUIS) PO SCH (08:51)
[2022-03-05] MEDS: FERROUS SULFATE 325MG TAB PO SCH (08:51)
[2022-03-05] MEDS: LEVEMIR (INSULIN DETEMIR) 1 UNITS/0.01ML SC SCH (08:52)
[2022-03-05] MEDS: BUMETANIDE 1 MG TAB PO SCH (08:52)
[2022-03-05] MEDS: rOPINIRole 1MG TAB PO SCH (08:52)
[2022-03-05 08:53] VITALS: BP 129/59
[2022-03-05] MEDS: INSULIN LISPRO (NovoLOG) PER UNIT SC SCH ×2 (08:53→12:02)
[2022-03-05] MEDS: CARVedilol 12.5 MG TAB PO SCH (08:53)
== END 2022-03-05 13:38 ==
LOC: EDBD 11:44 → M ED 11:44 → M ED INP 11:45 → M MSPAV 16:30
PROVIDERS: ADMIT Internal Medicine Nephrology; ATTEND Internal Medicine
DX: K72.90 Hepatic failure, unspecified without coma (principal); K75.81 Nonalcoholic steatohepatitis (NASH); E11.40 Type 2 diabetes mellitus with diabetic neuropathy, unspecified; E66.01 Morbid (severe) obesity due to excess calories; I11.9 Hypertensive heart disease without heart failure; D61.818 Other pancytopenia; J45.909 Unspecified asthma, uncomplicated; I50.9 Heart failure, unspecified; G25.81 Restless legs syndrome; Z87.891 Personal history of nicotine dependence; F41.9 Anxiety disorder, unspecified; F32.A Depression, unspecified; Z91.018 Allergy to other foods; Z88.8 Allergy status to other drugs, medicaments and biological substances; Z88.1 Allergy status to other antibiotic agents; K21.9 Gastro-esophageal reflux disease without esophagitis; Z79.4 Long term (current) use of insulin; Z79.01 Long term (current) use of anticoagulants; Z79.899 Other long term (current) drug therapy
CPT/HCPCS: 36415; 74178; 80048; 80076; 82105; 82140; 82550; 82553; 83605; 83690; 83735; 85025; 85049; 85055; 85610; 87631; 93041; 96374; 97110; 97161; 97165; 97530; 97535; 99285; J1815; Q9967

== ENCOUNTER 2022-03-31 14:42 | Emergency (ER) | payer MEDICAID ==
[~2022-03-31 14:42] MED LIST changes: -ACID1TAB PO; -SUCR1TA PO
[2022-03-31] MEDS ORDERED: LACTULOSE 20 GM/30 ML SYRUP UD PO ONE (15:55)
[2022-03-31 17:22] LABS: BASO % 0.8 % (0.0-1.0); EOS # 0.1 10^3/uL (0.0-0.5); EOS % 4.5 % (0.0-3.0); HEMATOCRIT 24.5 % (36.0-47.0); HEMOGLOBIN 8.5 g/dl (12.0-15.5); LYMPH # 0.9 10^3/uL (1.5-5.0); LYMPH % 32.8 % (24.0-44.0); MEAN CORPUSCULAR HEMOGLOBIN 35.4 pg (27.0-33.0); MEAN CORPUSCULAR HGB CONC 34.7 g/dl (32.0-36.5); MEAN CORPUSCULAR VOLUME 102.1 fl (80.0-96.0); MONO # 0.2 10^3/uL (0.0-0.8); MONO % 6.8 % (2.0-8.0); NEUTROPHILS # 1.5 10^3/uL (1.5-8.5); NEUTROPHILS % 54.7 % (36.0-66.0); WHITE BLOOD COUNT 2.7 10^3/uL (4.0-10.0)
[2022-03-31 17:26] LABS: PLATELET COUNT, AUTOMATED 82 10^3/uL (150-450)
[2022-03-31 17:57] LABS: RSV AMPLIFICATION NEGATIVE (NEGATIVE)
[2022-03-31 18:00] LABS: ALBUMIN 2.9 GM/DL (3.2-5.2); BILIRUBIN,DIRECT 0.2 MG/DL (0.0-0.2); BILIRUBIN,TOTAL 0.5 MG/DL (0.2-1.0); CALCIUM LEVEL 8.5 MG/DL (8.5-10.1); CREATININE FOR GFR 1.26 MG/DL (0.55-1.30); GLOMERULAR FILTRATION RATE 46.9 (>51); POTASSIUM SERUM 3.8 MEQ/L (3.5-5.1); THYROID STIMULATING HORMONE 2.5 uIU/ML (0.358-3.740); TOTAL PROTEIN 6.5 GM/DL (6.4-8.2)
[2022-03-31 19:00] VITALS: BP 131/65
== END 2022-03-31 19:59 | disposition home or self-care (01) ==
LOC: EDBD 14:42 → M ED 14:42
DX: E72.20 Disorder of urea cycle metabolism, unspecified (principal); E11.9 Type 2 diabetes mellitus without complications; J45.909 Unspecified asthma, uncomplicated; J44.9 Chronic obstructive pulmonary disease, unspecified; K21.9 Gastro-esophageal reflux disease without esophagitis; F32.9 Major depressive disorder, single episode, unspecified; K74.60 Unspecified cirrhosis of liver; Z87.442 Personal history of urinary calculi; Z87.891 Personal history of nicotine dependence; Z79.4 Long term (current) use of insulin; Z79.899 Other long term (current) drug therapy; Z91.018 Allergy to other foods; Z88.1 Allergy status to other antibiotic agents; Z88.8 Allergy status to other drugs, medicaments and biological substances

== ENCOUNTER → 2022-03-31 | Outpatient (REF) | payer MEDICAID ==
[~2022-03-31] MED LIST changes: +ACID1TAB PO; +CIPR-249 PO; +ELIQ5TAB PO; +SUCR1TA PO
[2022-03-31 10:56] LABS: BASO % 0.7 % (0.0-1.0); EOS # 0.1 10^3/uL (0.0-0.5); EOS % 3.6 % (0.0-3.0); HEMOGLOBIN 9.3 g/dl (12.0-15.5); LYMPH # 0.9 10^3/uL (1.5-5.0); LYMPH % 29.7 % (24.0-44.0); MEAN CORPUSCULAR HEMOGLOBIN 35.1 pg (27.0-33.0); MEAN CORPUSCULAR HGB CONC 34.4 g/dl (32.0-36.5); MEAN CORPUSCULAR VOLUME 101.9 fl (80.0-96.0); MONO # 0.2 10^3/uL (0.0-0.8); MONO % 6.6 % (2.0-8.0); NEUTROPHILS # 1.8 10^3/uL (1.5-8.5); NEUTROPHILS % 59.1 % (36.0-66.0); PLATELET COUNT, AUTOMATED 106 10^3/uL (150-450); RED BLOOD COUNT 2.65 10^6/uL (4.00-5.40)
[2022-03-31 11:54] LABS: ALBUMIN 3.1 GM/DL (3.2-5.2); BILIRUBIN,TOTAL 0.6 MG/DL (0.2-1.0); CALCIUM LEVEL 8.7 MG/DL (8.5-10.1); CREATININE FOR GFR 1.33 MG/DL (0.55-1.30); GLOMERULAR FILTRATION RATE 44.1 (>51); THYROID STIMULATING HORMONE 3.89 uIU/ML (0.358-3.740); TOTAL PROTEIN 7.2 GM/DL (6.4-8.2)
[2022-03-31 16:22] LABS: HEMOGLOBIN A1c 8.1 %
== END ==
PROVIDERS: ATTEND Family Medicine
DX: I10 Essential (primary) hypertension (principal)

== ENCOUNTER 2022-04-08 12:46 | Observation (INO) | payer MEDICAID ==
[2022-04-08] MEDS ORDERED: LACTULOSE 20 GM/30 ML SYRUP UD PO ONE (13:05)
[2022-04-08 13:34] LABS: BASO % 1.2 % (0.0-1.0); EOS # 0.1 10^3/uL (0.0-0.5); EOS % 3.7 % (0.0-3.0); HEMATOCRIT 28.9 % (36.0-47.0); LYMPH # 0.7 10^3/uL (1.5-5.0); LYMPH % 29.2 % (24.0-44.0); MEAN CORPUSCULAR HEMOGLOBIN 35.2 pg (27.0-33.0); MEAN CORPUSCULAR HGB CONC 34.6 g/dl (32.0-36.5); MEAN CORPUSCULAR VOLUME 101.8 fl (80.0-96.0); MONO # 0.2 10^3/uL (0.0-0.8); MONO % 9.5 % (2.0-8.0); NEUTROPHILS # 1.4 10^3/uL (1.5-8.5); RED BLOOD COUNT 2.84 10^6/uL (4.00-5.40); WHITE BLOOD COUNT 2.4 10^3/uL (4.0-10.0)
[2022-04-08 13:36] LABS: PLATELET COUNT, AUTOMATED 96 10^3/uL (150-450)
[2022-04-08 14:08] LABS: ALBUMIN 3.1 GM/DL (3.2-5.2); BILIRUBIN,DIRECT 0.3 MG/DL (0.0-0.2); BILIRUBIN,TOTAL 0.7 MG/DL (0.2-1.0); CALCIUM LEVEL 9.1 MG/DL (8.5-10.1); CREATININE FOR GFR 1.33 MG/DL (0.55-1.30); GLOMERULAR FILTRATION RATE 44.1 (>51); POTASSIUM SERUM 4.1 MEQ/L (3.5-5.1); THYROID STIMULATING HORMONE 3.07 uIU/ML (0.358-3.740); TOTAL PROTEIN 7.1 GM/DL (6.4-8.2)
[2022-04-08 14:21] LABS: RSV AMPLIFICATION NEGATIVE (NEGATIVE)
[2022-04-08] MEDS ORDERED: SUCR1TA PO (15:19)
[2022-04-08] MEDS ORDERED: ACID1TAB PO (15:19)
[2022-04-08] MEDS ORDERED: LACTULOSE 20 GM/30 ML SYRUP UD PR ONE (15:20)
[2022-04-08] MEDS ORDERED: HOME MED LIST COMPLETE! XX SCH (15:20)
[2022-04-08 18:30] VITALS: BP 135/65
[2022-04-08 19:07] LABS: INR 1.16; PARTIAL THROMBOPLASTIN TIME 34.9 SECONDS (25.9-37.0); PROTHROMBIN TIME 15.2 SECONDS (12.7-14.5)
[2022-04-08] MEDS ORDERED: DEXTROSE 50% 50 ML SYRINGE IV PRN (19:30)
[2022-04-08] MEDS ORDERED: GLUCOSE 4GM CHEW TABLET PO PRN (19:30)
[2022-04-08] MEDS ORDERED: GLUCAGON INJ 1MG VIAL SC PRN (19:30)
[2022-04-08 20:00] VITALS: BP_SYST 114; BP_SYST 141; BP_DIAS 46; BP_DIAS 58
[2022-04-08] MEDS: INSULIN LISPRO (NovoLOG) PER UNIT SC SCH (21:00)
[2022-04-08] MEDS: rifAXIMin 550 MG TAB (XIFAXAN) PO SCH (21:11)
[2022-04-08] MEDS: APIXABAN 5 MG TAB (ELIQUIS) PO SCH (21:11)
[2022-04-08] MEDS: cefTRIAXone SOD 1 GM in D5W MINI-BAG PLUS 50 ML IV SCH (21:11)
[2022-04-08] MEDS: TOPIRAMATE (TopAMAX) 25 MG TAB PO SCH (21:12)
[2022-04-08] MEDS: CARVedilol 12.5 MG TAB PO SCH (21:14)
[2022-04-08] MEDS: rOPINIRole 1MG TAB PO SCH (21:15)
[2022-04-08] MEDS: LACTULOSE 20 GM/30 ML SYRUP UD PO SCH (21:15)
[2022-04-08] MEDS: LEVEMIR (INSULIN DETEMIR) 1 UNITS/0.01ML SC SCH (21:24)
[2022-04-08] MEDS: BUMETANIDE 1 MG TAB PO SCH (22:50)
[2022-04-09] MEDS: NYSTATIN 100,000 UNITS/GM TOPICAL PWD 15 GM TOP SCH ×2 (05:01→21:06)
[2022-04-09] MEDS: ACETAMINOPHEN TAB 650MG DOSE (2X325MG) PO PRN ×2 (05:06→22:38)
[2022-04-09 05:10] VITALS: BP 113/87
[2022-04-09 05:52] LABS: BASO % 0.7 % (0.0-1.0); EOS # 0.1 10^3/uL (0.0-0.5); EOS % 1.9 % (0.0-3.0); HEMATOCRIT 27.8 % (36.0-47.0); HEMOGLOBIN 9.4 g/dl (12.0-15.5); LYMPH # 0.3 10^3/uL (1.5-5.0); LYMPH % 9.7 % (24.0-44.0); MEAN CORPUSCULAR HEMOGLOBIN 35.5 pg (27.0-33.0); MEAN CORPUSCULAR HGB CONC 33.8 g/dl (32.0-36.5); MEAN CORPUSCULAR VOLUME 104.9 fl (80.0-96.0); MONO # 0.2 10^3/uL (0.0-0.8); MONO % 7.1 % (2.0-8.0); NEUTROPHILS # 2.2 10^3/uL (1.5-8.5); NEUTROPHILS % 80.2 % (36.0-66.0); RED BLOOD COUNT 2.65 10^6/uL (4.00-5.40); WHITE BLOOD COUNT 2.7 10^3/uL (4.0-10.0)
[2022-04-09 05:53] LABS: PLATELET COUNT, AUTOMATED 81 10^3/uL (150-450)
[2022-04-09 06:16] LABS: CALCIUM LEVEL 9.1 MG/DL (8.5-10.1); CREATININE FOR GFR 1.1 MG/DL (0.55-1.30); GLOMERULAR FILTRATION RATE 54.9 (>51); MAGNESIUM LEVEL 2.1 MG/DL (1.8-2.4); PHOSPHORUS LEVEL 4.2 MG/DL (2.5-4.9); POTASSIUM SERUM 3.5 MEQ/L (3.5-5.1)
[2022-04-09] MEDS: OMEPRAZOLE 20MG CAP PO SCH (09:11)
[2022-04-09] MEDS: rOPINIRole 1MG TAB PO SCH ×2 (09:11→20:46)
[2022-04-09] MEDS: FERROUS SULFATE 325MG TAB PO SCH (09:11)
[2022-04-09] MEDS: INSULIN LISPRO (NovoLOG) PER UNIT SC SCH ×4 (09:12→21:10)
[2022-04-09] MEDS: LACTULOSE 20 GM/30 ML SYRUP UD PO SCH ×4 (09:12→20:44)
[2022-04-09] MEDS: rifAXIMin 550 MG TAB (XIFAXAN) PO SCH ×2 (09:12→20:46)
[2022-04-09] MEDS: SPIRONOLACTONE 50 MG TAB PO SCH (09:15)
[2022-04-09] MEDS: BUMETANIDE 1 MG TAB PO SCH ×2 (09:15→20:46)
[2022-04-09] MEDS: APIXABAN 5 MG TAB (ELIQUIS) PO SCH ×2 (09:16→20:46)
[2022-04-09] MEDS: LEVEMIR (INSULIN DETEMIR) 1 UNITS/0.01ML SC SCH ×2 (09:16→21:07)
[2022-04-09] MEDS: CARVedilol 12.5 MG TAB PO SCH ×2 (09:16→20:47)
[2022-04-09 14:00] VITALS: BP 138/58
[2022-04-09 20:00] VITALS: BP 157/70
[2022-04-09] MEDS: TOPIRAMATE (TopAMAX) 25 MG TAB PO SCH (20:45)
[2022-04-09] MEDS: cefTRIAXone SOD 1 GM in D5W MINI-BAG PLUS 50 ML IV SCH (21:05)
[2022-04-10] MEDS: FLUTICASONE PROP 0.05% NASAL SPRAY 16 GM (FLONASE) NARES PRN ×2 (00:08→19:50)
[2022-04-10 05:25] VITALS: BP 152/72
[2022-04-10 06:22] LABS: BASO % 0.5 % (0.0-1.0); EOS # 0.1 10^3/uL (0.0-0.5); EOS % 4.1 % (0.0-3.0); HEMATOCRIT 27.1 % (36.0-47.0); HEMOGLOBIN 8.9 g/dl (12.0-15.5); LYMPH # 0.6 10^3/uL (1.5-5.0); LYMPH % 27.4 % (24.0-44.0); MEAN CORPUSCULAR HEMOGLOBIN 34.8 pg (27.0-33.0); MEAN CORPUSCULAR HGB CONC 32.8 g/dl (32.0-36.5); MEAN CORPUSCULAR VOLUME 105.9 fl (80.0-96.0); MONO # 0.2 10^3/uL (0.0-0.8); MONO % 7.8 % (2.0-8.0); NEUTROPHILS # 1.3 10^3/uL (1.5-8.5); NEUTROPHILS % 59.7 % (36.0-66.0); RED BLOOD COUNT 2.56 10^6/uL (4.00-5.40); WHITE BLOOD COUNT 2.2 10^3/uL (4.0-10.0)
[2022-04-10 06:30] LABS: PLATELET COUNT, AUTOMATED 88 10^3/uL (150-450)
[2022-04-10 06:45] LABS: CALCIUM LEVEL 8.5 MG/DL (8.5-10.1); CREATININE FOR GFR 1.07 MG/DL (0.55-1.30); GLOMERULAR FILTRATION RATE 56.7 (>51); POTASSIUM SERUM 3.4 MEQ/L (3.5-5.1)
[2022-04-10] MEDS ORDERED: POTASSIUM CHLORIDE 10MEQ SR TABLET PO ONE (08:15)
[2022-04-10] MEDS: ACETAMINOPHEN TAB 650MG DOSE (2X325MG) PO PRN (08:44)
[2022-04-10] MEDS: LACTULOSE 20 GM/30 ML SYRUP UD PO SCH ×4 (08:45→19:50)
[2022-04-10] MEDS: BUMETANIDE 1 MG TAB PO SCH ×2 (08:45→20:00)
[2022-04-10] MEDS: FERROUS SULFATE 325MG TAB PO SCH (08:50)
[2022-04-10] MEDS: OMEPRAZOLE 20MG CAP PO SCH (08:50)
[2022-04-10] MEDS: SPIRONOLACTONE 50 MG TAB PO SCH (08:50)
[2022-04-10] MEDS: APIXABAN 5 MG TAB (ELIQUIS) PO SCH ×2 (08:50→19:52)
[2022-04-10] MEDS: rifAXIMin 550 MG TAB (XIFAXAN) PO SCH ×2 (08:50→19:52)
[2022-04-10] MEDS: rOPINIRole 1MG TAB PO SCH ×2 (08:51→19:50)
[2022-04-10] MEDS: LEVEMIR (INSULIN DETEMIR) 1 UNITS/0.01ML SC SCH ×2 (08:54→20:02)
[2022-04-10] MEDS: INSULIN LISPRO (NovoLOG) PER UNIT SC SCH ×4 (08:54→21:15)
[2022-04-10] MEDS: NYSTATIN 100,000 UNITS/GM TOPICAL PWD 15 GM TOP SCH ×2 (09:00→19:50)
[2022-04-10] MEDS: CARVedilol 12.5 MG TAB PO SCH ×2 (09:02→19:51)
[2022-04-10 14:00] VITALS: BP 158/70
[2022-04-10] MEDS: cefTRIAXone SOD 1 GM in D5W MINI-BAG PLUS 50 ML IV SCH (19:50)
[2022-04-10] MEDS: TOPIRAMATE (TopAMAX) 25 MG TAB PO SCH (19:51)
[2022-04-10 20:00] VITALS: BP 171/69
[2022-04-10] MEDS ORDERED: oxyCODONE 5MG TAB PO PRN (20:50)
[2022-04-10 21:00] VITALS: BP 141/65
[2022-04-11] MEDS ORDERED: oxyCODONE 5MG TAB PO ONE (02:00)
[2022-04-11 03:45] VITALS: BP 144/66
[2022-04-11 05:44] VITALS: BP 154/73
[2022-04-11 06:44] LABS: BASO % 0.9 % (0.0-1.0); EOS # 0.1 10^3/uL (0.0-0.5); EOS % 4.2 % (0.0-3.0); HEMATOCRIT 26.8 % (36.0-47.0); LYMPH # 0.7 10^3/uL (1.5-5.0); LYMPH % 33.2 % (24.0-44.0); MEAN CORPUSCULAR HEMOGLOBIN 35.2 pg (27.0-33.0); MEAN CORPUSCULAR HGB CONC 33.6 g/dl (32.0-36.5); MEAN CORPUSCULAR VOLUME 104.7 fl (80.0-96.0); MONO # 0.2 10^3/uL (0.0-0.8); MONO % 7.9 % (2.0-8.0); NEUTROPHILS # 1.1 10^3/uL (1.5-8.5); NEUTROPHILS % 53.3 % (36.0-66.0); PLATELET COUNT, AUTOMATED 82 10^3/uL (150-450); RED BLOOD COUNT 2.56 10^6/uL (4.00-5.40); WHITE BLOOD COUNT 2.1 10^3/uL (4.0-10.0)
[2022-04-11 07:14] LABS: CALCIUM LEVEL 8.7 MG/DL (8.5-10.1); CREATININE FOR GFR 1.06 MG/DL (0.55-1.30); GLOMERULAR FILTRATION RATE 57.3 (>51); POTASSIUM SERUM 4.4 MEQ/L (3.5-5.1)
[2022-04-11] MEDS: INSULIN LISPRO (NovoLOG) PER UNIT SC SCH (08:23)
[2022-04-11] MEDS: OMEPRAZOLE 20MG CAP PO SCH (08:23)
[2022-04-11] MEDS: LACTULOSE 20 GM/30 ML SYRUP UD PO SCH (08:23)
[2022-04-11] MEDS: LEVEMIR (INSULIN DETEMIR) 1 UNITS/0.01ML SC SCH (08:23)
[2022-04-11] MEDS: rifAXIMin 550 MG TAB (XIFAXAN) PO SCH (08:23)
[2022-04-11] MEDS: APIXABAN 5 MG TAB (ELIQUIS) PO SCH (08:23)
[2022-04-11] MEDS: SPIRONOLACTONE 50 MG TAB PO SCH (08:24)
[2022-04-11] MEDS: rOPINIRole 1MG TAB PO SCH (08:24)
[2022-04-11] MEDS: FERROUS SULFATE 325MG TAB PO SCH (08:24)
[2022-04-11 08:27] VITALS: BP 139/68
[2022-04-11] MEDS: CARVedilol 12.5 MG TAB PO SCH (08:27)
[2022-04-11] MEDS: NYSTATIN 100,000 UNITS/GM TOPICAL PWD 15 GM TOP SCH (08:28)
[2022-04-11] MEDS: BUMETANIDE 1 MG TAB PO SCH (10:40)
== END 2022-04-11 10:55 ==
LOC: EDBD 12:46 → M ED 12:46 → M ED INP 12:47 → ENRESERV 16:21 → M MSPAV 18:02
PROVIDERS: ADMIT Internal Medicine Nephrology; ATTEND Internal Medicine Nephrology
DX: K76.82 Hepatic encephalopathy (principal); K70.30 Alcoholic cirrhosis of liver without ascites; K75.81 Nonalcoholic steatohepatitis (NASH); I81 Portal vein thrombosis; D61.818 Other pancytopenia; E66.01 Morbid (severe) obesity due to excess calories; G47.33 Obstructive sleep apnea (adult) (pediatric); J45.909 Unspecified asthma, uncomplicated; I50.9 Heart failure, unspecified; F32.A Depression, unspecified; F41.9 Anxiety disorder, unspecified; E11.40 Type 2 diabetes mellitus with diabetic neuropathy, unspecified; K21.9 Gastro-esophageal reflux disease without esophagitis; M16.11 Unilateral primary osteoarthritis, right hip; G25.81 Restless legs syndrome; R26.9 Unspecified abnormalities of gait and mobility; Z91.199 Patient's noncompliance with other medical treatment and regimen due to unspecified reason; N18.30 Chronic kidney disease, stage 3 unspecified; I12.9 Hypertensive chronic kidney disease with stage 1 through stage 4 chronic kidney disease, or unspecified chronic kidney disease; D50.9 Iron deficiency anemia, unspecified; Z79.01 Long term (current) use of anticoagulants; Z79.4 Long term (current) use of insulin; Z79.899 Other long term (current) drug therapy; Z88.8 Allergy status to other drugs, medicaments and biological substances; Z91.018 Allergy to other foods; Z88.1 Allergy status to other antibiotic agents
CPT/HCPCS: 36415; 80048; 80076; 82140; 83735; 84100; 84443; 85025; 85049; 85055; 85610; 85730; 87631; 87635; 93005; 93041; 94760; 96365; 96366; 97116; 97161; 97165; 97530; 97535; 99285; J0696; J1815

== ENCOUNTER 2022-04-20 10:40 | Observation (INO) | payer MEDICAID ==
[~2022-04-20 10:40] MED LIST changes: +ACID1TAB PO; +SUCR1TA PO
[2022-04-20 11:35] LABS: BASO # 0.1 10^3/uL (0.0-0.2); BASO % 1.7 % (0.0-1.0); EOS # 0.1 10^3/uL (0.0-0.5); HEMATOCRIT 29.6 % (36.0-47.0); HEMOGLOBIN 10.2 g/dl (12.0-15.5); LYMPH # 0.8 10^3/uL (1.5-5.0); LYMPH % 27.2 % (24.0-44.0); MEAN CORPUSCULAR HEMOGLOBIN 35.2 pg (27.0-33.0); MEAN CORPUSCULAR HGB CONC 34.5 g/dl (32.0-36.5); MEAN CORPUSCULAR VOLUME 102.1 fl (80.0-96.0); MONO # 0.2 10^3/uL (0.0-0.8); MONO % 7.7 % (2.0-8.0); NEUTROPHILS # 1.8 10^3/uL (1.5-8.5); NEUTROPHILS % 59.1 % (36.0-66.0); PLATELET COUNT, AUTOMATED 104 10^3/uL (150-450)
[2022-04-20 12:22] LABS: CPK CREATINE PHOSPHOKINASE 68 U/L (26-192)
[2022-04-20 12:31] LABS: ACETAMINOPHEN LEVEL < 2.0 UG/ML (10.0-30.0); ALT/SGPT 24 U/L (12-78); BILIRUBIN,DIRECT 0.2 MG/DL (0.0-0.2); BILIRUBIN,TOTAL 0.6 MG/DL (0.2-1.0); BLOOD UREA NITROGEN 39 MG/DL (7-18); CALCIUM LEVEL 8.7 MG/DL (8.5-10.1); CARBON DIOXIDE LEVEL 24 MEQ/L (21-32); CHLORIDE LEVEL 113 MEQ/L (98-107); CREATININE FOR GFR 1.31 MG/DL (0.55-1.30); ETHYL ALCOHOL (ETHANOL) < 0.003 % (0.000-0.010); GLOMERULAR FILTRATION RATE 44.9 (>51); GLUCOSE, FASTING 138 MG/DL (70-100); POTASSIUM SERUM 3.6 MEQ/L (3.5-5.1); SALICYLATE LEVEL < 1.7 MG/DL (5.0-30.0); SODIUM LEVEL 144 MEQ/L (136-145); TOTAL PROTEIN 6.8 GM/DL (6.4-8.2)
[2022-04-20 13:17] LABS: RSV AMPLIFICATION NEGATIVE (NEGATIVE)
[2022-04-20] MEDS ORDERED: DEXTROSE 50% 50 ML SYRINGE IV PRN (14:35)
[2022-04-20] MEDS ORDERED: GLUCOSE 4GM CHEW TABLET PO PRN (14:35)
[2022-04-20] MEDS ORDERED: GLUCAGON INJ 1MG VIAL SC PRN (14:35)
[2022-04-20] MEDS ORDERED: MELA5CAP2 PO (15:40)
[2022-04-20] MEDS ORDERED: OXYC-517 PO (15:43)
[2022-04-20] MEDS ORDERED: HOME MED LIST COMPLETE! XX SCH (15:45)
[2022-04-20] MEDS: LACTULOSE 20 GM/30 ML SYRUP UD PO SCH ×2 (16:04→22:01)
[2022-04-20 16:50] VITALS: BP 112/64
[2022-04-20] MEDS: INSULIN LISPRO (NovoLOG) PER UNIT SC SCH ×2 (17:23→20:58)
[2022-04-20] MEDS ORDERED: ONDANSETRON 4MG TAB PO PRN (17:25)
[2022-04-20] MEDS ORDERED: ALBUTEROL SULFATE 2.5 MG/0.5 ML INH NEB SOLN INH PRN (17:25)
[2022-04-20] MEDS: cefTRIAXone SOD 2 GM in D5W MINI-BAG PLUS 50 ML IV SCH (17:32)
[2022-04-20] MEDS: LIDOCAINE 5% (LIDODERM) PATCH TD SCH (18:01)
[2022-04-20] MEDS: SUCRALFATE 1 GM TAB PO SCH ×2 (18:01→22:02)
[2022-04-20 20:00] VITALS: BP 112/51
[2022-04-20] MEDS: BUMETANIDE 1MG/4ML VIAL IV SCH (22:02)
[2022-04-20] MEDS: APIXABAN 5 MG TAB (ELIQUIS) PO SCH (22:02)
[2022-04-20] MEDS: rifAXIMin 550 MG TAB (XIFAXAN) PO SCH (22:02)
[2022-04-20] MEDS: TOPIRAMATE (TopAMAX) 25 MG TAB PO SCH (22:02)
[2022-04-20] MEDS: CARVedilol 12.5 MG TAB PO SCH (22:03)
[2022-04-20] MEDS: GABAPENTIN 300 MG CAP PO SCH (22:03)
[2022-04-20] MEDS: DOCUSATE SODIUM 100MG CAPSULE PO SCH (22:03)
[2022-04-20] MEDS: rOPINIRole 2MG TAB PO SCH (22:03)
[2022-04-20] MEDS ORDERED: ACETAMINOPHEN TAB 650MG DOSE (2X325MG) PO PRN (23:10)
[2022-04-20] MEDS ORDERED: LIDOCAINE 5% (LIDODERM) PATCH TD PRN (23:10)
[2022-04-20] MEDS ORDERED: oxyCODONE 5MG TAB PO ONE (23:15)
[2022-04-21] MEDS: LACTULOSE 20 GM/30 ML SYRUP UD PO SCH ×6 (00:27→21:20)
[2022-04-21 04:30] VITALS: BP 112/51
[2022-04-21 05:44] LABS: HEMATOCRIT 29.2 % (36.0-47.0); HEMOGLOBIN 9.9 g/dl (12.0-15.5); MEAN CORPUSCULAR HEMOGLOBIN 34.9 pg (27.0-33.0); MEAN CORPUSCULAR HGB CONC 33.9 g/dl (32.0-36.5); MEAN CORPUSCULAR VOLUME 102.8 fl (80.0-96.0); RED BLOOD COUNT 2.84 10^6/uL (4.00-5.40); WHITE BLOOD COUNT 3.1 10^3/uL (4.0-10.0)
[2022-04-21 05:54] LABS: PLATELET COUNT, AUTOMATED 90 10^3/uL (150-450)
[2022-04-21 06:07] LABS: ALBUMIN 2.8 GM/DL (3.2-5.2); BILIRUBIN,TOTAL 0.7 MG/DL (0.2-1.0); CALCIUM LEVEL 8.6 MG/DL (8.5-10.1); CREATININE FOR GFR 1.11 MG/DL (0.55-1.30); GLOMERULAR FILTRATION RATE 54.3 (>51); MAGNESIUM LEVEL 2.2 MG/DL (1.8-2.4); POTASSIUM SERUM 3.6 MEQ/L (3.5-5.1); TOTAL PROTEIN 6.6 GM/DL (6.4-8.2)
[2022-04-21] MEDS: DOCUSATE SODIUM 100MG CAPSULE PO SCH ×2 (07:58→21:20)
[2022-04-21] MEDS: SUCRALFATE 1 GM TAB PO SCH ×4 (07:58→21:20)
[2022-04-21] MEDS: APIXABAN 5 MG TAB (ELIQUIS) PO SCH ×2 (07:58→21:20)
[2022-04-21] MEDS: GABAPENTIN 300 MG CAP PO SCH ×3 (07:58→21:21)
[2022-04-21] MEDS: SPIRONOLACTONE 50 MG TAB PO SCH (07:58)
[2022-04-21] MEDS: OMEPRAZOLE 20MG CAP PO SCH (07:59)
[2022-04-21] MEDS: rOPINIRole 2MG TAB PO SCH ×2 (08:00→21:21)
[2022-04-21] MEDS: BUMETANIDE 1MG/4ML VIAL IV SCH ×2 (08:00→21:22)
[2022-04-21] MEDS: rifAXIMin 550 MG TAB (XIFAXAN) PO SCH ×2 (08:01→21:20)
[2022-04-21] MEDS: INSULIN LISPRO (NovoLOG) PER UNIT SC SCH ×4 (08:02→21:21)
[2022-04-21] MEDS: LIDOCAINE 5% (LIDODERM) PATCH TD SCH (08:02)
[2022-04-21] MEDS: CARVedilol 12.5 MG TAB PO SCH ×2 (08:38→21:19)
[2022-04-21] MEDS ORDERED: FLUBLOK(EGG FREE)(QUAD)INFLUENZA VACC 0.5ML SYRINGE 18YRS & OLDER IM.IMMUN ONE (09:00)
[2022-04-21 14:00] VITALS: BP 116/53
[2022-04-21] MEDS: cefTRIAXone SOD 2 GM in D5W MINI-BAG PLUS 50 ML IV SCH (16:33)
[2022-04-21 17:20] VITALS: BP 140/72
[2022-04-21] MEDS: TOPIRAMATE (TopAMAX) 25 MG TAB PO SCH (21:20)
[2022-04-21] MEDS: NYSTATIN 100,000 UNITS/GM TOPICAL PWD 15 GM TOP PRN (21:24)
[2022-04-21] MEDS ORDERED: oxyCODONE 5MG TAB PO PRN (21:30)
[2022-04-21 22:00] VITALS: BP 120/56
[2022-04-22] MEDS: LACTULOSE 20 GM/30 ML SYRUP UD PO SCH ×3 (00:39→08:14)
[2022-04-22 05:50] LABS: HEMATOCRIT 27.7 % (36.0-47.0); HEMOGLOBIN 9.4 g/dl (12.0-15.5); MEAN CORPUSCULAR HEMOGLOBIN 34.9 pg (27.0-33.0); MEAN CORPUSCULAR HGB CONC 33.9 g/dl (32.0-36.5); RED BLOOD COUNT 2.69 10^6/uL (4.00-5.40); WHITE BLOOD COUNT 2.3 10^3/uL (4.0-10.0)
[2022-04-22 05:52] LABS: PLATELET COUNT, AUTOMATED 90 10^3/uL (150-450)
[2022-04-22 06:00] VITALS: BP 118/56
[2022-04-22 06:23] LABS: ALBUMIN 2.6 GM/DL (3.2-5.2); BILIRUBIN,TOTAL 0.5 MG/DL (0.2-1.0); CALCIUM LEVEL 8.7 MG/DL (8.5-10.1); CREATININE FOR GFR 1.22 MG/DL (0.55-1.30); GLOMERULAR FILTRATION RATE 48.7 (>51); MAGNESIUM LEVEL 2.1 MG/DL (1.8-2.4); POTASSIUM SERUM 3.7 MEQ/L (3.5-5.1); TOTAL PROTEIN 6.3 GM/DL (6.4-8.2)
[2022-04-22 08:00] VITALS: BP 118/56
[2022-04-22] MEDS: SPIRONOLACTONE 50 MG TAB PO SCH (08:15)
[2022-04-22] MEDS: APIXABAN 5 MG TAB (ELIQUIS) PO SCH (08:15)
[2022-04-22] MEDS: rifAXIMin 550 MG TAB (XIFAXAN) PO SCH (08:15)
[2022-04-22] MEDS: SUCRALFATE 1 GM TAB PO SCH (08:15)
[2022-04-22] MEDS: OMEPRAZOLE 20MG CAP PO SCH (08:15)
[2022-04-22] MEDS: GABAPENTIN 300 MG CAP PO SCH (08:15)
[2022-04-22] MEDS: rOPINIRole 2MG TAB PO SCH (08:15)
[2022-04-22] MEDS: DOCUSATE SODIUM 100MG CAPSULE PO SCH (08:15)
[2022-04-22 08:17] VITALS: BP 119/57
[2022-04-22] MEDS: CARVedilol 12.5 MG TAB PO SCH (08:17)
[2022-04-22] MEDS: INSULIN LISPRO (NovoLOG) PER UNIT SC SCH (08:19)
[2022-04-22] MEDS: LIDOCAINE 5% (LIDODERM) PATCH TD SCH (08:29)
[2022-04-22] MEDS ORDERED: BUMETANIDE 1 MG TAB PO SCH (09:00)
[2022-04-22] MEDS ORDERED: CEFD300C41 PO (10:23)
[2022-04-22] MEDS ORDERED: CEFDINIR 300 MG CAP (OMNICEF) PO ONE (10:50)
[2022-04-22] MEDS ORDERED: cefTRIAXone SOD 2 GM in D5W MINI-BAG PLUS 50 ML IV SCH (11:00)
[2022-04-22] MEDS: NYSTATIN 100,000 UNITS/GM TOPICAL PWD 15 GM TOP PRN (11:29)
== END 2022-04-22 12:29 ==
LOC: EDBD 10:40 → M ED 10:40 → INTOOBSV 14:34 → M ED INP 14:34 → ENRESERV 16:02 → M MSPAV 16:54
PROVIDERS: ADMIT Family Medicine; ATTEND Internal Medicine Nephrology
DX: K76.82 Hepatic encephalopathy (principal); E72.29 Other disorders of urea cycle metabolism; I81 Portal vein thrombosis; G47.33 Obstructive sleep apnea (adult) (pediatric); E11.9 Type 2 diabetes mellitus without complications; I12.9 Hypertensive chronic kidney disease with stage 1 through stage 4 chronic kidney disease, or unspecified chronic kidney disease; N18.9 Chronic kidney disease, unspecified; F41.9 Anxiety disorder, unspecified; F32.A Depression, unspecified; Z91.14 Patient's other noncompliance with medication regimen; K21.9 Gastro-esophageal reflux disease without esophagitis; E66.01 Morbid (severe) obesity due to excess calories; Z79.01 Long term (current) use of anticoagulants; Z88.1 Allergy status to other antibiotic agents; Z88.8 Allergy status to other drugs, medicaments and biological substances; D61.818 Other pancytopenia; Z79.4 Long term (current) use of insulin; I50.9 Heart failure, unspecified
CPT/HCPCS: 36415; 70450; 71045; 80048; 80053; 80076; 80143; 82077; 82140; 82550; 83605; 83735; 84443; 85025; 85027; 85049; 85055; 87040; 87631; 87635; 90682; 93005; 93041; 94760; 96374; 96376; 97161; 99285; G0008; J0696; J1815

== ENCOUNTER 2022-05-01 16:51 | Inpatient (IN) | payer MEDICAID ==
[~2022-05-01] VITALS: Ht 182.9 cm; Wt 167.3 kg
[~2022-05-01 16:51] MED LIST changes: -DOXY-350 PO; +DOXY-444 PO; +FLON1SPR; -FLON1SPR NARES; +MELA5CAP2 PO
[2022-05-01 17:47] LABS: BASO % 1.2 % (0.0-1.0); EOS # 0.1 10^3/uL (0.0-0.5); EOS % 4.7 % (0.0-3.0); HEMATOCRIT 30.2 % (36.0-47.0); HEMOGLOBIN 10.5 g/dl (12.0-15.5); LYMPH # 0.8 10^3/uL (1.5-5.0); LYMPH % 31.5 % (24.0-44.0); MEAN CORPUSCULAR HEMOGLOBIN 35.2 pg (27.0-33.0); MEAN CORPUSCULAR HGB CONC 34.8 g/dl (32.0-36.5); MEAN CORPUSCULAR VOLUME 101.3 fl (80.0-96.0); MONO # 0.2 10^3/uL (0.0-0.8); MONO % 8.7 % (2.0-8.0); NEUTROPHILS # 1.4 10^3/uL (1.5-8.5); NEUTROPHILS % 53.5 % (36.0-66.0); PLATELET COUNT, AUTOMATED 108 10^3/uL (150-450); RED BLOOD COUNT 2.98 10^6/uL (4.00-5.40); WHITE BLOOD COUNT 2.5 10^3/uL (4.0-10.0)
[2022-05-01 18:01] LABS: VENOUS BASE EXCESS 0.4 (-2.0-2.0); VENOUS HCO3 24.4 MEQ/L (23.0-27.0); VENOUS O2 SATURATION 94.5 % (60.0-80.0); VENOUS PARTIAL PRESSURE CO2 37.1 mmHg (38.0-50.0); VENOUS PARTIAL PRESSURE O2 79.5 mmHg (30.0-50.0); VENOUS PH 7.436 UNITS (7.330-7.430); VENOUS STANDARD HCO3 24.8 MEQ/L; VENOUS TOTAL CO2 25.5 MEQ/L (24.0-28.0)
[2022-05-01] MEDS ORDERED: LACTULOSE 20 GM/30 ML SYRUP UD PO ONE (18:40)
[2022-05-01 18:41] LABS: ALBUMIN 3.1 GM/DL (3.2-5.2); BILIRUBIN,DIRECT 0.2 MG/DL (0.0-0.2); BILIRUBIN,TOTAL 0.7 MG/DL (0.2-1.0); CALCIUM LEVEL 9.1 MG/DL (8.5-10.1); CREATININE FOR GFR 1.25 MG/DL (0.55-1.30); ETHYL ALCOHOL (ETHANOL) 0.003 % (0.000-0.010); GLOMERULAR FILTRATION RATE 47.4 (>51); POTASSIUM SERUM 3.9 MEQ/L (3.5-5.1); THYROID STIMULATING HORMONE 2.8 uIU/ML (0.358-3.740); TOTAL PROTEIN 6.9 GM/DL (6.4-8.2)
[2022-05-01 19:48] LABS: RSV AMPLIFICATION NEGATIVE (NEGATIVE)
[2022-05-01 23:14] LABS: AMPHETAMINES LEVEL URINE NEGATIVE (NEGATIVE); BARBITURATES URINE NEGATIVE (NEGATIVE); BENZODIAZEPINES URINE NEGATIVE (NEGATIVE); CANNABINOIDS URINE NEGATIVE (NEGATIVE); COCAINE METABOLITE URINE NEGATIVE (NEGATIVE); METHADONE URINE NEGATIVE (NEGATIVE); OPIATES URINE NEGATIVE (NEGATIVE); PHENCYCLIDINE URINE NEGATIVE (NEGATIVE)
[2022-05-01] MEDS ORDERED: PROBCAP14 PO (23:35)
[2022-05-01] MEDS ORDERED: HOME MED LIST COMPLETE! XX SCH (23:45)
[2022-05-02 01:05] VITALS: BP 130/52
[2022-05-02] MEDS ORDERED: ONDANSETRON 4MG TAB PO PRN (02:05)
[2022-05-02] MEDS ORDERED: ALBUTEROL SULFATE 2.5 MG/0.5 ML INH NEB SOLN INH PRN (02:05)
[2022-05-02] MEDS ORDERED: GLUCAGON INJ 1MG VIAL SC PRN (02:20)
[2022-05-02] MEDS ORDERED: GLUCOSE 4GM CHEW TABLET PO PRN (02:20)
[2022-05-02] MEDS ORDERED: DEXTROSE 50% 50 ML SYRINGE IV PRN (02:20)
[2022-05-02] MEDS ORDERED: rOPINIRole 2MG TAB PO ONE (03:20)
[2022-05-02] MEDS: oxyCODONE 5MG TAB PO PRN ×2 (03:57→20:44)
[2022-05-02 05:24] VITALS: BP 127/52
[2022-05-02] MEDS: APIXABAN 5 MG TAB (ELIQUIS) PO SCH ×2 (08:57→20:39)
[2022-05-02] MEDS: rOPINIRole 2MG TAB PO SCH ×2 (08:57→20:40)
[2022-05-02] MEDS: OMEPRAZOLE 20MG CAP PO SCH (08:58)
[2022-05-02] MEDS: SUCRALFATE 1 GM TAB PO SCH ×4 (08:58→20:40)
[2022-05-02] MEDS: ESCITALOPRAM OXALATE 10 MG TAB (LEXAPRO) PO SCH (08:58)
[2022-05-02] MEDS: BUMETANIDE 1 MG TAB PO SCH ×2 (08:58→20:40)
[2022-05-02] MEDS: SPIRONOLACTONE 50 MG TAB PO SCH (08:58)
[2022-05-02] MEDS: rifAXIMin 550 MG TAB (XIFAXAN) PO SCH ×2 (08:58→20:40)
[2022-05-02] MEDS: GABAPENTIN 300 MG CAP PO SCH ×3 (08:58→20:40)
[2022-05-02] MEDS: LACTULOSE 20 GM/30 ML SYRUP UD PO SCH ×4 (08:59→20:41)
[2022-05-02] MEDS: FERROUS SULFATE 325MG TAB PO SCH (08:59)
[2022-05-02] MEDS: INSULIN LISPRO (NovoLOG) PER UNIT SC SCH ×4 (09:00→20:41)
[2022-05-02] MEDS: CARVedilol 12.5 MG TAB PO SCH ×2 (09:01→20:40)
[2022-05-02 13:28] LABS: BASO % 1.2 % (0.0-1.0); EOS # 0.1 10^3/uL (0.0-0.5); EOS % 3.6 % (0.0-3.0); HEMATOCRIT 30.9 % (36.0-47.0); HEMOGLOBIN 10.5 g/dl (12.0-15.5); LYMPH # 0.7 10^3/uL (1.5-5.0); LYMPH % 29.5 % (24.0-44.0); MEAN CORPUSCULAR HEMOGLOBIN 34.5 pg (27.0-33.0); MEAN CORPUSCULAR VOLUME 101.6 fl (80.0-96.0); MONO # 0.3 10^3/uL (0.0-0.8); MONO % 10.4 % (2.0-8.0); NEUTROPHILS # 1.4 10^3/uL (1.5-8.5); NEUTROPHILS % 54.9 % (36.0-66.0); PLATELET COUNT, AUTOMATED 101 10^3/uL (150-450); RED BLOOD COUNT 3.04 10^6/uL (4.00-5.40); WHITE BLOOD COUNT 2.5 10^3/uL (4.0-10.0)
[2022-05-02 14:00] VITALS: BP 140/63
[2022-05-02 14:16] LABS: CALCIUM LEVEL 8.9 MG/DL (8.5-10.1); CREATININE FOR GFR 1.13 MG/DL (0.55-1.30); GLOMERULAR FILTRATION RATE 53.2 (>51); POTASSIUM SERUM 4.2 MEQ/L (3.5-5.1)
[2022-05-02] MEDS: TOPIRAMATE (TopAMAX) 25 MG TAB PO SCH (20:40)
[2022-05-02 21:00] VITALS: BP 131/54
[2022-05-02] MEDS: LEVEMIR (INSULIN DETEMIR) 1 UNITS/0.01ML SC SCH (21:46)
[2022-05-03] MEDS ORDERED: UNRESOLVED CLARIFICATION ENTRY XX SCH (00:01)
[2022-05-03 05:45] VITALS: BP 121/55
[2022-05-03] MEDS: LACTULOSE 20 GM/30 ML SYRUP UD PO SCH ×4 (08:04→21:40)
[2022-05-03] MEDS: SUCRALFATE 1 GM TAB PO SCH ×4 (08:07→21:40)
[2022-05-03] MEDS: CARVedilol 12.5 MG TAB PO SCH ×2 (08:07→21:39)
[2022-05-03] MEDS: APIXABAN 5 MG TAB (ELIQUIS) PO SCH ×2 (08:07→21:40)
[2022-05-03] MEDS: ESCITALOPRAM OXALATE 10 MG TAB (LEXAPRO) PO SCH (08:08)
[2022-05-03] MEDS: GABAPENTIN 300 MG CAP PO SCH ×3 (08:08→21:40)
[2022-05-03] MEDS: FERROUS SULFATE 325MG TAB PO SCH (08:08)
[2022-05-03] MEDS: rOPINIRole 2MG TAB PO SCH ×2 (08:08→21:40)
[2022-05-03] MEDS: SPIRONOLACTONE 50 MG TAB PO SCH (08:08)
[2022-05-03] MEDS: rifAXIMin 550 MG TAB (XIFAXAN) PO SCH ×2 (08:08→21:40)
[2022-05-03] MEDS: OMEPRAZOLE 20MG CAP PO SCH (08:08)
[2022-05-03] MEDS: BUMETANIDE 1 MG TAB PO SCH ×2 (08:08→21:40)
[2022-05-03] MEDS: INSULIN LISPRO (NovoLOG) PER UNIT SC SCH ×4 (08:09→21:41)
[2022-05-03] MEDS: LEVEMIR (INSULIN DETEMIR) 1 UNITS/0.01ML SC SCH ×2 (08:10→21:42)
[2022-05-03] MEDS: oxyCODONE 5MG TAB PO PRN (08:18)
[2022-05-03 08:35] LABS: BASO % 1.2 % (0.0-1.0); EOS # 0.1 10^3/uL (0.0-0.5); EOS % 4.4 % (0.0-3.0); HEMATOCRIT 28.1 % (36.0-47.0); HEMOGLOBIN 9.6 g/dl (12.0-15.5); LYMPH # 0.9 10^3/uL (1.5-5.0); LYMPH % 34.5 % (24.0-44.0); MEAN CORPUSCULAR HEMOGLOBIN 34.9 pg (27.0-33.0); MEAN CORPUSCULAR HGB CONC 34.2 g/dl (32.0-36.5); MEAN CORPUSCULAR VOLUME 102.2 fl (80.0-96.0); MONO # 0.2 10^3/uL (0.0-0.8); MONO % 8.7 % (2.0-8.0); NEUTROPHILS # 1.3 10^3/uL (1.5-8.5); NEUTROPHILS % 50.8 % (36.0-66.0); RED BLOOD COUNT 2.75 10^6/uL (4.00-5.40); WHITE BLOOD COUNT 2.5 10^3/uL (4.0-10.0)
[2022-05-03 09:04] LABS: CALCIUM LEVEL 8.7 MG/DL (8.5-10.1); CREATININE FOR GFR 1.02 MG/DL (0.55-1.30); GLOMERULAR FILTRATION RATE 59.9 (>51); POTASSIUM SERUM 3.8 MEQ/L (3.5-5.1)
[2022-05-03 09:06] LABS: PLATELET COUNT, AUTOMATED 93 10^3/uL (150-450)
[2022-05-03] MEDS: NYSTATIN 100,000 UNITS/GM TOPICAL PWD 15 GM TOP SCH (11:34)
[2022-05-03 14:00] VITALS: BP 118/54
[2022-05-03 19:22] VITALS: BP 129/59
[2022-05-03] MEDS: TOPIRAMATE (TopAMAX) 25 MG TAB PO SCH (21:41)
[2022-05-04 05:47] LABS: BASO % 1.1 % (0.0-1.0); EOS # 0.1 10^3/uL (0.0-0.5); EOS % 4.2 % (0.0-3.0); HEMOGLOBIN 9.4 g/dl (12.0-15.5); LYMPH # 0.8 10^3/uL (1.5-5.0); LYMPH % 27.9 % (24.0-44.0); MEAN CORPUSCULAR HEMOGLOBIN 34.7 pg (27.0-33.0); MEAN CORPUSCULAR HGB CONC 33.6 g/dl (32.0-36.5); MEAN CORPUSCULAR VOLUME 103.3 fl (80.0-96.0); MONO # 0.2 10^3/uL (0.0-0.8); MONO % 8.1 % (2.0-8.0); NEUTROPHILS # 1.6 10^3/uL (1.5-8.5); RED BLOOD COUNT 2.71 10^6/uL (4.00-5.40); WHITE BLOOD COUNT 2.8 10^3/uL (4.0-10.0)
[2022-05-04 05:48] VITALS: BP 130/58
[2022-05-04 05:49] LABS: PLATELET COUNT, AUTOMATED 98 10^3/uL (150-450)
[2022-05-04 06:10] LABS: CALCIUM LEVEL 8.6 MG/DL (8.5-10.1); CREATININE FOR GFR 1.08 MG/DL (0.55-1.30); GLOMERULAR FILTRATION RATE 56.1 (>51); POTASSIUM SERUM 3.6 MEQ/L (3.5-5.1)
[2022-05-04] MEDS: NYSTATIN 100,000 UNITS/GM TOPICAL PWD 15 GM TOP SCH (08:30)
[2022-05-04] MEDS: LACTULOSE 20 GM/30 ML SYRUP UD PO SCH ×4 (08:30→21:42)
[2022-05-04] MEDS: LEVEMIR (INSULIN DETEMIR) 1 UNITS/0.01ML SC SCH ×2 (08:31→21:43)
[2022-05-04] MEDS: INSULIN LISPRO (NovoLOG) PER UNIT SC SCH ×4 (08:31→21:43)
[2022-05-04] MEDS: CARVedilol 12.5 MG TAB PO SCH ×2 (08:32→21:41)
[2022-05-04] MEDS: ESCITALOPRAM OXALATE 10 MG TAB (LEXAPRO) PO SCH (08:33)
[2022-05-04] MEDS: APIXABAN 5 MG TAB (ELIQUIS) PO SCH (08:33)
[2022-05-04] MEDS: GABAPENTIN 300 MG CAP PO SCH ×3 (08:33→21:41)
[2022-05-04] MEDS: SPIRONOLACTONE 50 MG TAB PO SCH (08:33)
[2022-05-04] MEDS: SUCRALFATE 1 GM TAB PO SCH ×4 (08:33→21:41)
[2022-05-04] MEDS: rifAXIMin 550 MG TAB (XIFAXAN) PO SCH ×2 (08:33→21:40)
[2022-05-04] MEDS: FERROUS SULFATE 325MG TAB PO SCH (08:33)
[2022-05-04] MEDS: rOPINIRole 2MG TAB PO SCH ×2 (08:33→21:41)
[2022-05-04] MEDS: OMEPRAZOLE 20MG CAP PO SCH (08:34)
[2022-05-04] MEDS: BUMETANIDE 1 MG TAB PO SCH ×2 (08:34→21:41)
[2022-05-04] MEDS ORDERED: POTASSIUM CHLORIDE 10MEQ SR TABLET PO ONE (09:00)
[2022-05-04] MEDS: oxyCODONE 5MG TAB PO PRN (13:23)
[2022-05-04 14:00] VITALS: BP 126/56
[2022-05-04 20:10] LABS: HEMATOCRIT 28.6 % (36.0-47.0); HEMOGLOBIN 9.8 g/dl (12.0-15.5)
[2022-05-04] MEDS: TOPIRAMATE (TopAMAX) 25 MG TAB PO SCH (21:41)
[2022-05-04 22:00] VITALS: BP 125/55
[2022-05-05] MEDS: oxyCODONE 5MG TAB PO PRN ×2 (01:27→20:04)
[2022-05-05 06:00] VITALS: BP 131/55
[2022-05-05] MEDS: LACTULOSE 20 GM/30 ML SYRUP UD PO SCH ×4 (07:48→20:04)
[2022-05-05] MEDS: NYSTATIN 100,000 UNITS/GM TOPICAL PWD 15 GM TOP SCH (07:48)
[2022-05-05] MEDS: LEVEMIR (INSULIN DETEMIR) 1 UNITS/0.01ML SC SCH ×2 (07:48→20:04)
[2022-05-05] MEDS: rOPINIRole 2MG TAB PO SCH ×2 (07:49→20:03)
[2022-05-05] MEDS: SUCRALFATE 1 GM TAB PO SCH ×4 (07:49→20:03)
[2022-05-05] MEDS: BUMETANIDE 1 MG TAB PO SCH ×2 (07:49→20:03)
[2022-05-05] MEDS: rifAXIMin 550 MG TAB (XIFAXAN) PO SCH ×2 (07:49→20:03)
[2022-05-05] MEDS: OMEPRAZOLE 20MG CAP PO SCH (07:49)
[2022-05-05] MEDS: SPIRONOLACTONE 50 MG TAB PO SCH (07:49)
[2022-05-05] MEDS: ESCITALOPRAM OXALATE 10 MG TAB (LEXAPRO) PO SCH (07:49)
[2022-05-05] MEDS: INSULIN LISPRO (NovoLOG) PER UNIT SC SCH ×4 (07:49→19:56)
[2022-05-05] MEDS: FERROUS SULFATE 325MG TAB PO SCH (07:50)
[2022-05-05] MEDS: GABAPENTIN 300 MG CAP PO SCH ×3 (07:50→20:03)
[2022-05-05] MEDS: CARVedilol 12.5 MG TAB PO SCH ×2 (07:52→20:03)
[2022-05-05 08:42] LABS: EOS # 0.1 10^3/uL (0.0-0.5); EOS % 4.4 % (0.0-3.0); HEMATOCRIT 29.6 % (36.0-47.0); LYMPH # 0.9 10^3/uL (1.5-5.0); LYMPH % 29.9 % (24.0-44.0); MEAN CORPUSCULAR HEMOGLOBIN 34.8 pg (27.0-33.0); MEAN CORPUSCULAR HGB CONC 33.8 g/dl (32.0-36.5); MEAN CORPUSCULAR VOLUME 103.1 fl (80.0-96.0); MONO # 0.2 10^3/uL (0.0-0.8); MONO % 8.2 % (2.0-8.0); NEUTROPHILS # 1.7 10^3/uL (1.5-8.5); NEUTROPHILS % 56.5 % (36.0-66.0); PLATELET COUNT, AUTOMATED 102 10^3/uL (150-450); RED BLOOD COUNT 2.87 10^6/uL (4.00-5.40); WHITE BLOOD COUNT 2.9 10^3/uL (4.0-10.0)
[2022-05-05] MEDS ORDERED: DOXYCYCLINE HYCLATE 100MG TABLET PO SCH (09:00)
[2022-05-05 09:12] LABS: CALCIUM LEVEL 8.7 MG/DL (8.5-10.1); CREATININE FOR GFR 1.15 MG/DL (0.55-1.30); GLOMERULAR FILTRATION RATE 52.2 (>51); POTASSIUM SERUM 3.8 MEQ/L (3.5-5.1)
[2022-05-05] MEDS ORDERED: DOXYCYCLINE HYCLATE 100 MG in D5W MINI-BAG PLUS 100 ML IV SCH (10:45)
[2022-05-05 11:32] LABS: CALCIUM LEVEL 9.2 MG/DL (8.5-10.1); CREATININE FOR GFR 1.19 MG/DL (0.55-1.30); GLOMERULAR FILTRATION RATE 50.1 (>51); POTASSIUM SERUM 4.1 MEQ/L (3.5-5.1)
[2022-05-05] MEDS: LIDOCAINE 5% (LIDODERM) PATCH TD SCH (12:23)
[2022-05-05 14:00] VITALS: BP 143/71
[2022-05-05 16:52] LABS: HEMATOCRIT 29.3 % (36.0-47.0)
[2022-05-05 17:50] LABS: CREATININE FOR GFR 1.09 MG/DL (0.55-1.30); GLOMERULAR FILTRATION RATE 55.5 (>51)
[2022-05-05 20:00] VITALS: BP 139/69
[2022-05-05] MEDS: TOPIRAMATE (TopAMAX) 25 MG TAB PO SCH (20:04)
[2022-05-06 00:28] LABS: HEMATOCRIT 29.5 % (36.0-47.0); HEMOGLOBIN 10.1 g/dl (12.0-15.5)
[2022-05-06 01:04] LABS: CALCIUM LEVEL 8.8 MG/DL (8.5-10.1); CREATININE FOR GFR 1.17 MG/DL (0.55-1.30); GLOMERULAR FILTRATION RATE 51.1 (>51); POTASSIUM SERUM 3.8 MEQ/L (3.5-5.1)
[2022-05-06 06:00] VITALS: BP 118/54
[2022-05-06 07:01] LABS: HEMATOCRIT 29.3 % (36.0-47.0); HEMOGLOBIN 10.2 g/dl (12.0-15.5); MEAN CORPUSCULAR HEMOGLOBIN 35.5 pg (27.0-33.0); MEAN CORPUSCULAR HGB CONC 34.8 g/dl (32.0-36.5); MEAN CORPUSCULAR VOLUME 102.1 fl (80.0-96.0); RED BLOOD COUNT 2.87 10^6/uL (4.00-5.40); WHITE BLOOD COUNT 2.3 10^3/uL (4.0-10.0)
[2022-05-06 07:04] LABS: PLATELET COUNT, AUTOMATED 97 10^3/uL (150-450)
[2022-05-06 07:29] LABS: CALCIUM LEVEL 8.8 MG/DL (8.5-10.1); CREATININE FOR GFR 1.08 MG/DL (0.55-1.30); GLOMERULAR FILTRATION RATE 56.1 (>51); POTASSIUM SERUM 3.6 MEQ/L (3.5-5.1)
[2022-05-06] MEDS ORDERED: PANTOPRAZOLE 40MG TAB (PROTONIX) PO SCH (09:00)
[2022-05-06] MEDS ORDERED: PANTOPRAZOLE 40MG VIAL IV SCH (09:00)
[2022-05-06] MEDS: ESCITALOPRAM OXALATE 10 MG TAB (LEXAPRO) PO SCH (09:36)
[2022-05-06] MEDS: BUMETANIDE 1 MG TAB PO SCH (09:36)
[2022-05-06] MEDS: GABAPENTIN 300 MG CAP PO SCH (09:36)
[2022-05-06] MEDS: SPIRONOLACTONE 50 MG TAB PO SCH (09:36)
[2022-05-06] MEDS: SUCRALFATE 1 GM TAB PO SCH ×2 (09:36→12:13)
[2022-05-06] MEDS: rOPINIRole 2MG TAB PO SCH (09:36)
[2022-05-06] MEDS: FERROUS SULFATE 325MG TAB PO SCH (09:36)
[2022-05-06] MEDS: LACTULOSE 20 GM/30 ML SYRUP UD PO SCH ×2 (09:36→12:13)
[2022-05-06] MEDS: rifAXIMin 550 MG TAB (XIFAXAN) PO SCH (09:36)
[2022-05-06] MEDS: NYSTATIN 100,000 UNITS/GM TOPICAL PWD 15 GM TOP SCH (09:37)
[2022-05-06] MEDS: LEVEMIR (INSULIN DETEMIR) 1 UNITS/0.01ML SC SCH (09:37)
[2022-05-06] MEDS: INSULIN LISPRO (NovoLOG) PER UNIT SC SCH ×2 (09:37→12:13)
[2022-05-06 09:38] VITALS: BP 124/57
[2022-05-06] MEDS: LIDOCAINE 5% (LIDODERM) PATCH TD SCH (09:38)
[2022-05-06] MEDS: CARVedilol 12.5 MG TAB PO SCH (09:38)
[2022-05-06] MEDS ORDERED: APIXABAN 5 MG TAB (ELIQUIS) PO SCH (11:50)
== END 2022-05-06 13:30 | disposition home or self-care (01) ==
LOC: M ED 16:51 → M ED INP 23:21 → M MSPAV 05-02 01:02
PROVIDERS: ADMIT Family Medicine; ATTEND Internal Medicine
DX: K76.82 Hepatic encephalopathy (principal); I81 Portal vein thrombosis; I11.0 Hypertensive heart disease with heart failure; D61.818 Other pancytopenia; I50.32 Chronic diastolic (congestive) heart failure; E11.40 Type 2 diabetes mellitus with diabetic neuropathy, unspecified; E66.01 Morbid (severe) obesity due to excess calories; K74.60 Unspecified cirrhosis of liver; J45.909 Unspecified asthma, uncomplicated; K21.9 Gastro-esophageal reflux disease without esophagitis; F41.9 Anxiety disorder, unspecified; G25.81 Restless legs syndrome; F32.A Depression, unspecified; G43.909 Migraine, unspecified, not intractable, without status migrainosus; Z79.899 Other long term (current) drug therapy; Z79.4 Long term (current) use of insulin; Z91.018 Allergy to other foods; Z88.8 Allergy status to other drugs, medicaments and biological substances; K75.81 Nonalcoholic steatohepatitis (NASH)

== ENCOUNTER 2022-05-13 12:56 | Observation (INO) | payer MEDICAID ==
[~2022-05-13] VITALS: Ht 182.9 cm; Wt 154.5 kg
[2022-05-13] MEDS ORDERED: NS 500 ML IV ONE (13:30)
[2022-05-13] MEDS ORDERED: LIDOCAINE 2% 5ML JELLY UROJET TOP ONE (14:25)
[2022-05-13 14:26] LABS: BASO % 1.1 % (0.0-1.0); EOS # 0.1 10^3/uL (0.0-0.5); HEMATOCRIT 31.2 % (36.0-47.0); LYMPH # 0.9 10^3/uL (1.5-5.0); LYMPH % 30.9 % (24.0-44.0); MEAN CORPUSCULAR HGB CONC 35.3 g/dl (32.0-36.5); MEAN CORPUSCULAR VOLUME 99.4 fl (80.0-96.0); MONO # 0.2 10^3/uL (0.0-0.8); MONO % 8.4 % (2.0-8.0); NEUTROPHILS # 1.5 10^3/uL (1.5-8.5); NEUTROPHILS % 55.2 % (36.0-66.0); PLATELET COUNT, AUTOMATED 109 10^3/uL (150-450); RED BLOOD COUNT 3.14 10^6/uL (4.00-5.40); WHITE BLOOD COUNT 2.8 10^3/uL (4.0-10.0)
[2022-05-13 15:09] LABS: RSV AMPLIFICATION NEGATIVE (NEGATIVE)
[2022-05-13 15:15] LABS: ACETAMINOPHEN LEVEL < 2.0 UG/ML (10.0-30.0); ALBUMIN 3.1 GM/DL (3.2-5.2); ALT/SGPT 27 U/L (12-78); BILIRUBIN,DIRECT 0.2 MG/DL (0.0-0.2); BILIRUBIN,TOTAL 0.7 MG/DL (0.2-1.0); BLOOD UREA NITROGEN 35 MG/DL (7-18); CALCIUM LEVEL 8.7 MG/DL (8.5-10.1); CARBON DIOXIDE LEVEL 22 MEQ/L (21-32); CHLORIDE LEVEL 113 MEQ/L (98-107); CREATININE FOR GFR 1.13 MG/DL (0.55-1.30); ETHYL ALCOHOL (ETHANOL) < 0.003 % (0.000-0.010); GLOMERULAR FILTRATION RATE 53.2 (>51); GLUCOSE, FASTING 178 MG/DL (70-100); POTASSIUM SERUM 3.7 MEQ/L (3.5-5.1); SALICYLATE LEVEL < 1.7 MG/DL (5.0-30.0); SODIUM LEVEL 145 MEQ/L (136-145)
[2022-05-13 15:21] LABS: AMPHETAMINES LEVEL URINE NEGATIVE (NEGATIVE); BARBITURATES URINE NEGATIVE (NEGATIVE); BENZODIAZEPINES URINE NEGATIVE (NEGATIVE); CANNABINOIDS URINE NEGATIVE (NEGATIVE); COCAINE METABOLITE URINE NEGATIVE (NEGATIVE); METHADONE URINE NEGATIVE (NEGATIVE); OPIATES URINE NEGATIVE (NEGATIVE); PHENCYCLIDINE URINE NEGATIVE (NEGATIVE)
[2022-05-13] MEDS ORDERED: LACTULOSE 20 GM/30 ML SYRUP UD PO ONE (15:35)
[2022-05-13] MEDS ORDERED: LACTULOSE 20 GM/30 ML SYRUP UD PR ONE (15:35)
[2022-05-13 16:37] LABS: ABG BASE EXCESS -0.2 (-2.0-2.0); ABG HCO3 22.2 MEQ/L (22.0-26.0); ABG O2 SATURATION 98.3 % (95.0-99.0); ABG PARTIAL PRESSURE CO2 29.3 mmHg (35.0-45.0); ABG PARTIAL PRESSURE O2 117.5 mmHg (75.0-100.0); ABG STANDARD HCO3 24.3 MEQ/L (22.0-26.0); ABG TOTAL CO2 23.1 MEQ/L (22.0-29.0); ABG pH (ARTERIAL) 7.497 UNITS (7.350-7.450)
[2022-05-13] MEDS ORDERED: DEXTROSE 50% 50 ML SYRINGE IV PRN (17:00)
[2022-05-13] MEDS ORDERED: GLUCOSE 4GM CHEW TABLET PO PRN (17:00)
[2022-05-13] MEDS ORDERED: GLUCAGON INJ 1MG VIAL SC PRN (17:00)
[2022-05-13] MEDS ORDERED: traMADol 50 MG TAB PO ONE (17:05)
[2022-05-13] MEDS: INSULIN LISPRO (NovoLOG) PER UNIT SC SCH ×2 (17:30→22:06)
[2022-05-13] MEDS ORDERED: HOME MED LIST COMPLETE! XX SCH ×2 (18:50→18:55)
[2022-05-13] MEDS: LACTULOSE 20 GM/30 ML SYRUP UD PO SCH (22:05)
[2022-05-13] MEDS: ANALGESIC BALM CRM 3OZ TOP SCH (22:05)
[2022-05-13] MEDS ORDERED: rOPINIRole 2MG TAB PO ONE (22:10)
[2022-05-14] MEDS: DICLOFENAC EPOLAMINE 1.3 % PATCH TOP SCH ×3 (00:07→20:10)
[2022-05-14] MEDS ORDERED: traMADol 50 MG TAB PO ONE (00:25)
[2022-05-14] MEDS: LACTULOSE 20 GM/30 ML SYRUP UD PO SCH ×7 (01:00→17:00)
[2022-05-14] MEDS: INSULIN LISPRO (NovoLOG) PER UNIT SC SCH ×6 (08:50→21:00)
[2022-05-14] MEDS ORDERED: DOCUSATE SODIUM 100MG CAPSULE PO SCH (09:00)
[2022-05-14] MEDS: BUMETANIDE 1 MG TAB PO SCH ×2 (09:00→18:19)
[2022-05-14] MEDS ORDERED: NYSTATIN 100,000 UNITS/GM TOPICAL PWD 15 GM TOP PRN (09:10)
[2022-05-14] MEDS ORDERED: MIRALAX *UNIT DOSE* 17GM PACKET PO PRN (09:10)
[2022-05-14] MEDS ORDERED: ONDANSETRON 4MG TAB PO PRN (09:10)
[2022-05-14] MEDS ORDERED: ALBUTEROL SULFATE 2.5 MG/0.5 ML INH NEB SOLN INH PRN (09:10)
[2022-05-14] MEDS ORDERED: oxyCODONE 5MG TAB PO PRN (09:10)
[2022-05-14 10:03] LABS: BASO % 1.6 % (0.0-1.0); EOS # 0.1 10^3/uL (0.0-0.5); EOS % 4.9 % (0.0-3.0); HEMOGLOBIN 10.6 g/dl (12.0-15.5); LYMPH # 0.8 10^3/uL (1.5-5.0); LYMPH % 34.2 % (24.0-44.0); MEAN CORPUSCULAR HEMOGLOBIN 34.6 pg (27.0-33.0); MEAN CORPUSCULAR HGB CONC 34.2 g/dl (32.0-36.5); MEAN CORPUSCULAR VOLUME 101.3 fl (80.0-96.0); MONO # 0.3 10^3/uL (0.0-0.8); MONO % 10.7 % (2.0-8.0); NEUTROPHILS # 1.2 10^3/uL (1.5-8.5); NEUTROPHILS % 48.2 % (36.0-66.0); RED BLOOD COUNT 3.06 10^6/uL (4.00-5.40); WHITE BLOOD COUNT 2.4 10^3/uL (4.0-10.0)
[2022-05-14 10:11] LABS: PLATELET COUNT, AUTOMATED 96 10^3/uL (150-450)
[2022-05-14 10:42] LABS: ALBUMIN 2.8 GM/DL (3.2-5.2); ALT/SGPT 24 U/L (12-78); BILIRUBIN,TOTAL 0.9 MG/DL (0.2-1.0); BLOOD UREA NITROGEN 28 MG/DL (7-18); CALCIUM LEVEL 8.7 MG/DL (8.5-10.1); CARBON DIOXIDE LEVEL 21 MEQ/L (21-32); CHLORIDE LEVEL 113 MEQ/L (98-107); CREATININE FOR GFR 0.98 MG/DL (0.55-1.30); GLOMERULAR FILTRATION RATE > 60.0 (>51); GLUCOSE, FASTING 322 MG/DL (70-100); POTASSIUM SERUM 3.8 MEQ/L (3.5-5.1); SODIUM LEVEL 143 MEQ/L (136-145); TOTAL PROTEIN 6.5 GM/DL (6.4-8.2)
[2022-05-14] MEDS ORDERED: MAGNESIUM CITRATE 300 ML BTL PO ONE (10:45)
[2022-05-14] MEDS ORDERED: MOM 30ML SUSPENSION UDC PO ONE (10:55)
[2022-05-14] MEDS: GASTROGRAFIN SOLUTION 30ML PO SCH ×2 (11:33→12:00)
[2022-05-14] MEDS ORDERED: INSULIN LISPRO (NovoLOG) PER UNIT SC SCH (12:00)
[2022-05-14] MEDS: APIXABAN 5 MG TAB (ELIQUIS) PO SCH ×2 (13:59→20:13)
[2022-05-14] MEDS: SUCRALFATE 1 GM TAB PO SCH ×3 (13:59→20:11)
[2022-05-14] MEDS: SENOKOT S TAB PO SCH ×2 (13:59→20:13)
[2022-05-14] MEDS: rifAXIMin 550 MG TAB (XIFAXAN) PO SCH ×2 (13:59→20:11)
[2022-05-14] MEDS: SPIRONOLACTONE 50 MG TAB PO SCH (14:00)
[2022-05-14] MEDS: FERROUS SULFATE 325MG TAB PO SCH (14:00)
[2022-05-14] MEDS: CARVedilol 12.5 MG TAB PO SCH ×2 (14:00→20:12)
[2022-05-14] MEDS: MIRALAX *UNIT DOSE* 17GM PACKET PO SCH ×2 (14:01→20:12)
[2022-05-14] MEDS: LORATADINE 10 MG TAB PO SCH (14:01)
[2022-05-14] MEDS: rOPINIRole 2MG TAB PO SCH ×2 (14:02→20:13)
[2022-05-14] MEDS: GABAPENTIN 100 MG CAP PO SCH ×2 (16:39→20:13)
[2022-05-14] MEDS: ESCITALOPRAM OXALATE 10 MG TAB (LEXAPRO) PO SCH (16:40)
[2022-05-14] MEDS: MECLIZINE 25 MG TABLET PO SCH ×2 (16:40→20:12)
[2022-05-14] MEDS: OMEPRAZOLE 20MG CAP PO SCH (16:40)
[2022-05-14] MEDS: DICYCLOMINE 10 MG CAP PO SCH ×3 (16:40→20:13)
[2022-05-14 17:00] VITALS: BP 150/70
[2022-05-14] MEDS ORDERED: TOPIRAMATE (TopAMAX) 25 MG TAB PO SCH (21:00)
[2022-05-14] MEDS: ANALGESIC BALM CRM 3OZ TOP SCH (21:00)
[2022-05-15 06:00] VITALS: BP 141/72
[2022-05-15] MEDS ORDERED: MOM 30ML SUSPENSION UDC PO ONE (07:35)
[2022-05-15 08:53] LABS: HEMATOCRIT 31.9 % (36.0-47.0); HEMOGLOBIN 11.2 g/dl (12.0-15.5); MEAN CORPUSCULAR HEMOGLOBIN 34.8 pg (27.0-33.0); MEAN CORPUSCULAR HGB CONC 35.1 g/dl (32.0-36.5); MEAN CORPUSCULAR VOLUME 99.1 fl (80.0-96.0); PLATELET COUNT, AUTOMATED 101 10^3/uL (150-450); RED BLOOD COUNT 3.22 10^6/uL (4.00-5.40); WHITE BLOOD COUNT 2.6 10^3/uL (4.0-10.0)
[2022-05-15] MEDS: SPIRONOLACTONE 50 MG TAB PO SCH (09:00)
[2022-05-15] MEDS: CARVedilol 12.5 MG TAB PO SCH ×2 (09:00→20:19)
[2022-05-15] MEDS: MIRALAX *UNIT DOSE* 17GM PACKET PO SCH ×2 (09:00→20:16)
[2022-05-15] MEDS: SENOKOT S TAB PO SCH ×2 (09:00→20:16)
[2022-05-15] MEDS: BUMETANIDE 1 MG TAB PO SCH ×2 (09:00→17:05)
[2022-05-15] MEDS: FLUTICASONE PROP 0.05% NASAL SPRAY 16 GM (FLONASE) SCH (09:13)
[2022-05-15] MEDS: MECLIZINE 25 MG TABLET PO SCH (09:14)
[2022-05-15] MEDS: rifAXIMin 550 MG TAB (XIFAXAN) PO SCH ×2 (09:14→20:16)
[2022-05-15] MEDS: SUCRALFATE 1 GM TAB PO SCH ×4 (09:14→20:16)
[2022-05-15] MEDS: LORATADINE 10 MG TAB PO SCH (09:14)
[2022-05-15] MEDS: APIXABAN 5 MG TAB (ELIQUIS) PO SCH ×2 (09:14→20:18)
[2022-05-15] MEDS: DICLOFENAC EPOLAMINE 1.3 % PATCH TOP SCH ×2 (09:14→20:17)
[2022-05-15] MEDS: FERROUS SULFATE 325MG TAB PO SCH (09:15)
[2022-05-15] MEDS: DICYCLOMINE 10 MG CAP PO SCH ×4 (09:15→20:16)
[2022-05-15] MEDS: rOPINIRole 2MG TAB PO SCH (09:15)
[2022-05-15] MEDS: OMEPRAZOLE 20MG CAP PO SCH (09:15)
[2022-05-15] MEDS: ESCITALOPRAM OXALATE 10 MG TAB (LEXAPRO) PO SCH (09:15)
[2022-05-15] MEDS: GABAPENTIN 100 MG CAP PO SCH (09:15)
[2022-05-15] MEDS: INSULIN LISPRO (NovoLOG) PER UNIT SC SCH ×7 (09:17→20:27)
[2022-05-15] MEDS: LACTULOSE 20 GM/30 ML SYRUP UD PO SCH ×8 (09:18→22:11)
[2022-05-15 09:32] LABS: ALBUMIN 2.9 GM/DL (3.2-5.2); BILIRUBIN,TOTAL 0.7 MG/DL (0.2-1.0); CALCIUM LEVEL 8.9 MG/DL (8.5-10.1); CREATININE FOR GFR 1.09 MG/DL (0.55-1.30); GLOMERULAR FILTRATION RATE 55.5 (>51); TOTAL PROTEIN 6.9 GM/DL (6.4-8.2)
[2022-05-15] MEDS ORDERED: LACTULOSE 20 GM/30 ML SYRUP UD PR ONE (10:20)
[2022-05-15] MEDS ORDERED: LEVEMIR (INSULIN DETEMIR) 1 UNITS/0.01ML SC ONE (10:25)
[2022-05-15] MEDS ORDERED: LACTULOSE 20 GM/30 ML SYRUP UD PO SCH (13:00)
[2022-05-15 13:29] LABS: ABG BASE EXCESS -3.1 (-2.0-2.0); ABG HCO3 19.9 MEQ/L (22.0-26.0); ABG O2 SATURATION 97.6 % (95.0-99.0); ABG PARTIAL PRESSURE CO2 29.9 mmHg (35.0-45.0); ABG PARTIAL PRESSURE O2 106.2 mmHg (75.0-100.0); ABG STANDARD HCO3 21.9 MEQ/L (22.0-26.0); ABG TOTAL CO2 20.8 MEQ/L (22.0-29.0); ABG pH (ARTERIAL) 7.441 UNITS (7.350-7.450)
[2022-05-15 14:00] VITALS: BP 120/70
[2022-05-15 20:15] VITALS: BP 156/63
[2022-05-15] MEDS: ANALGESIC BALM CRM 3OZ TOP SCH (20:17)
[2022-05-16] MEDS: LACTULOSE 20 GM/30 ML SYRUP UD PO SCH ×7 (00:04→11:00)
[2022-05-16] MEDS ORDERED: ACETAMINOPHEN TAB 650MG DOSE (2X325MG) PO PRN (00:20)
[2022-05-16 06:00] VITALS: BP 122/61
[2022-05-16] MEDS ORDERED: LACTULOSE 20 GM/30 ML SYRUP UD PR ONE (08:20)
[2022-05-16] MEDS ORDERED: LACT10SO3 PO (08:26)
[2022-05-16] MEDS ORDERED: LACTULOSE 20 GM/30 ML SYRUP UD PO SCH (09:00)
[2022-05-16] MEDS: SENOKOT S TAB PO SCH (09:00)
[2022-05-16] MEDS: MIRALAX *UNIT DOSE* 17GM PACKET PO SCH (09:00)
[2022-05-16] MEDS: BUMETANIDE 1 MG TAB PO SCH (09:23)
[2022-05-16 09:24] VITALS: BP 135/57
[2022-05-16] MEDS: ESCITALOPRAM OXALATE 10 MG TAB (LEXAPRO) PO SCH (09:24)
[2022-05-16] MEDS: APIXABAN 5 MG TAB (ELIQUIS) PO SCH (09:24)
[2022-05-16] MEDS: SUCRALFATE 1 GM TAB PO SCH ×2 (09:24→12:11)
[2022-05-16] MEDS: rifAXIMin 550 MG TAB (XIFAXAN) PO SCH (09:24)
[2022-05-16] MEDS: CARVedilol 12.5 MG TAB PO SCH (09:24)
[2022-05-16] MEDS: FERROUS SULFATE 325MG TAB PO SCH (09:24)
[2022-05-16] MEDS: OMEPRAZOLE 20MG CAP PO SCH (09:24)
[2022-05-16] MEDS: LORATADINE 10 MG TAB PO SCH (09:25)
[2022-05-16] MEDS: SPIRONOLACTONE 50 MG TAB PO SCH (09:25)
[2022-05-16] MEDS: DICYCLOMINE 10 MG CAP PO SCH ×2 (09:25→12:11)
[2022-05-16] MEDS: DICLOFENAC EPOLAMINE 1.3 % PATCH TOP SCH (09:26)
[2022-05-16] MEDS: INSULIN LISPRO (NovoLOG) PER UNIT SC SCH ×4 (09:27→12:12)
[2022-05-16] MEDS: FLUTICASONE PROP 0.05% NASAL SPRAY 16 GM (FLONASE) SCH (09:28)
[2022-05-16] MEDS ORDERED: NIRM1TAB PO (11:18)
== END 2022-05-16 13:05 ==
LOC: EDBD 12:56 → M ED 12:56 → INTOOBSV 15:31 → M ED INP 15:31 → ENRESERV 05-14 16:07 → M MSPAV 05-14 17:00
PROVIDERS: ADMIT General Practice; ATTEND General Practice
DX: K76.82 Hepatic encephalopathy (principal); E72.20 Disorder of urea cycle metabolism, unspecified; K75.81 Nonalcoholic steatohepatitis (NASH); U07.1 COVID-19; E11.40 Type 2 diabetes mellitus with diabetic neuropathy, unspecified; Z79.01 Long term (current) use of anticoagulants; I50.32 Chronic diastolic (congestive) heart failure; F41.9 Anxiety disorder, unspecified; F32.A Depression, unspecified; Z79.4 Long term (current) use of insulin; Z79.899 Other long term (current) drug therapy; Z88.1 Allergy status to other antibiotic agents; D61.818 Other pancytopenia; K59.00 Constipation, unspecified; G43.909 Migraine, unspecified, not intractable, without status migrainosus; J45.998 Other asthma; G25.81 Restless legs syndrome; I81 Portal vein thrombosis
CPT/HCPCS: 36415; 36600; 51701; 70450; 71045; 72125; 73521; 74176; 80048; 80053; 80076; 80143; 80307; 81000; 81015; 82077; 82140; 82803; 83605; 84443; 85025; 85027; 85049; 85055; 87086; 87631; 87635; 92526; 92610; 93005; 93041; 94760; 96374; 97110; 97161; 99285; J1815

== ENCOUNTER 2022-06-06 19:37 | Inpatient (IN) | payer MEDICAID ==
[~2022-06-06] VITALS: Ht 182.9 cm; Wt 152.1 kg
[~2022-06-06 19:37] MED LIST changes: +NIRM1TAB PO; -POTA10CA32 PO; +POTA10CA33 PO
[2022-06-06 21:52] LABS: BASO % 0.8 % (0.0-1.0); EOS # 0.1 10^3/uL (0.0-0.5); EOS % 2.5 % (0.0-3.0); HEMATOCRIT 31.6 % (36.0-47.0); HEMOGLOBIN 11.3 g/dl (12.0-15.5); LYMPH % 25.6 % (24.0-44.0); MEAN CORPUSCULAR HEMOGLOBIN 34.5 pg (27.0-33.0); MEAN CORPUSCULAR HGB CONC 35.8 g/dl (32.0-36.5); MEAN CORPUSCULAR VOLUME 96.3 fl (80.0-96.0); MONO # 0.2 10^3/uL (0.0-0.8); MONO % 5.6 % (2.0-8.0); NEUTROPHILS # 2.6 10^3/uL (1.5-8.5); NEUTROPHILS % 65.2 % (36.0-66.0); RED BLOOD COUNT 3.28 10^6/uL (4.00-5.40)
[2022-06-06 21:55] LABS: PLATELET COUNT, AUTOMATED 92 10^3/uL (150-450)
[2022-06-06 22:15] LABS: BILIRUBIN,DIRECT 0.2 MG/DL (<0.4)
[2022-06-06 22:31] LABS: RSV AMPLIFICATION NEGATIVE (NEGATIVE)
[2022-06-06 23:32] LABS: BILIRUBIN,TOTAL 0.6 MG/DL (0.3-1.2); CALCIUM LEVEL 8.8 MG/DL (8.5-10.1); CREATININE FOR GFR 1.25 MG/DL (0.55-1.30); GLOMERULAR FILTRATION RATE 47.4 (>51); POTASSIUM SERUM 2.7 MMOL/L (3.5-5.1); TOTAL PROTEIN 6.6 G/DL (5.7-8.2)
[2022-06-06 23:50] LABS: THYROID STIMULATING HORMONE 2.14 uIU/ML (0.55-4.78)
[2022-06-07] VITALS (17 sets, daily range): BP systolic 133–147; BP diastolic 65–85; O2SAT 98–100
[2022-06-07] MEDS ORDERED: ADME100I2 SC (00:11)
[2022-06-07] MEDS ORDERED: GABA600T4 PO (00:11)
[2022-06-07] MEDS ORDERED: NYST10006 TOP (00:15)
[2022-06-07] MEDS ORDERED: HOME MED LIST COMPLETE! XX SCH (00:20)
[2022-06-07] MEDS ORDERED: ALBUTEROL SULFATE 2.5 MG/0.5 ML INH NEB SOLN INH PRN (01:25)
[2022-06-07] MEDS ORDERED: GLUCOSE 4GM CHEW TABLET PO PRN (01:35)
[2022-06-07] MEDS ORDERED: DEXTROSE 50% 50 ML SYRINGE IV PRN (01:35)
[2022-06-07] MEDS ORDERED: GLUCAGON INJ 1MG VIAL SC PRN (01:35)
[2022-06-07] MEDS ORDERED: MIRALAX *UNIT DOSE* 17GM PACKET PO PRN (02:00)
[2022-06-07] MEDS ORDERED: POTASSIUM CHLORIDE 10MEQ SR TABLET PO ONE ×2 (03:00)
[2022-06-07] MEDS: LACTULOSE 20 GM/30 ML SYRUP UD PO SCH ×5 (04:41→20:46)
[2022-06-07] MEDS: TOPIRAMATE (TopAMAX) 25 MG TAB PO SCH ×2 (04:42→20:47)
[2022-06-07] MEDS ORDERED: SLF 3 ML SYR IV PRN (05:10)
[2022-06-07 05:33] LABS: VENOUS BASE EXCESS -12.9 (-2.0-2.0); VENOUS HCO3 12.5 MEQ/L (23.0-27.0); VENOUS O2 SATURATION 99.2 % (60.0-80.0); VENOUS PARTIAL PRESSURE CO2 28.4 mmHg (38.0-50.0); VENOUS PARTIAL PRESSURE O2 219.3 mmHg (30.0-50.0); VENOUS PH 7.263 UNITS (7.330-7.430); VENOUS STANDARD HCO3 14.6 MEQ/L; VENOUS TOTAL CO2 13.4 MEQ/L (24.0-28.0)
[2022-06-07 05:35] LABS: HEMATOCRIT 32.3 % (36.0-47.0); HEMOGLOBIN 11.5 g/dl (12.0-15.5); MEAN CORPUSCULAR HEMOGLOBIN 34.5 pg (27.0-33.0); MEAN CORPUSCULAR HGB CONC 35.6 g/dl (32.0-36.5); PLATELET COUNT, AUTOMATED 89 10^3/uL (150-450); RED BLOOD COUNT 3.33 10^6/uL (4.00-5.40); WHITE BLOOD COUNT 3.3 10^3/uL (4.0-10.0)
[2022-06-07 05:46] LABS: INR 1.28; PROTHROMBIN TIME 16.3 SECONDS (12.5-14.5)
[2022-06-07 05:47] LABS: PARTIAL THROMBOPLASTIN TIME 33.4 SECONDS (24.8-34.2)
[2022-06-07 05:59] LABS: BILIRUBIN,TOTAL 0.7 MG/DL (0.3-1.2); CALCIUM LEVEL 8.9 MG/DL (8.5-10.1); CREATININE FOR GFR 1.12 MG/DL (0.55-1.30); GLOMERULAR FILTRATION RATE 53.8 (>51); TOTAL PROTEIN 6.6 G/DL (5.7-8.2)
[2022-06-07] MEDS: SLF 3 ML SYR IV SCH ×3 (06:23→21:01)
[2022-06-07] MEDS: NYSTATIN 100,000 UNITS/GM TOPICAL PWD 15GM TOP SCH (08:11)
[2022-06-07] MEDS: FLUTICASONE PROP 0.05% NASAL SPRAY 16 GM (FLONASE) SCH (08:12)
[2022-06-07] MEDS: rOPINIRole 2MG TAB PO SCH ×2 (08:12→21:00)
[2022-06-07] MEDS: BUMETANIDE 1 MG TAB PO SCH ×2 (08:12→16:45)
[2022-06-07] MEDS: SPIRONOLACTONE 50 MG TAB PO SCH (08:13)
[2022-06-07] MEDS: OMEPRAZOLE 20MG CAP PO SCH (08:13)
[2022-06-07] MEDS: SUCRALFATE 1 GM TAB PO SCH ×4 (08:13→20:47)
[2022-06-07] MEDS: rifAXIMin 550 MG TAB (XIFAXAN) PO SCH ×2 (08:13→20:47)
[2022-06-07] MEDS: DOCUSATE SODIUM 100MG CAPSULE PO SCH ×2 (08:13→20:40)
[2022-06-07] MEDS: APIXABAN 5 MG TAB (ELIQUIS) PO SCH ×2 (08:14→20:46)
[2022-06-07] MEDS: FERROUS SULFATE 325MG TAB PO SCH (08:14)
[2022-06-07] MEDS: CARVedilol 12.5 MG TAB PO SCH ×2 (08:14→21:01)
[2022-06-07] MEDS: ESCITALOPRAM OXALATE 10 MG TAB (LEXAPRO) PO SCH (08:14)
[2022-06-07] MEDS: INSULIN LISPRO (NovoLOG) PER UNIT SC SCH ×4 (08:15→20:47)
[2022-06-07] MEDS: LEVEMIR (INSULIN DETEMIR) 1 UNITS/0.01ML SC SCH ×2 (08:15→20:47)
[2022-06-07] MEDS: oxyCODONE 5MG TAB PO PRN (19:27)
[2022-06-08] VITALS (9 sets, daily range): BP systolic 130–154; BP diastolic 55–73; O2SAT 97–99
[2022-06-08] MEDS ORDERED: RAMELTEON 8 MG TAB (ROZEREM) PO ONE (01:00)
[2022-06-08 05:29] LABS: HEMATOCRIT 34.6 % (36.0-47.0); MEAN CORPUSCULAR HEMOGLOBIN 34.1 pg (27.0-33.0); MEAN CORPUSCULAR HGB CONC 34.7 g/dl (32.0-36.5); MEAN CORPUSCULAR VOLUME 98.3 fl (80.0-96.0); PLATELET COUNT, AUTOMATED 104 10^3/uL (150-450); RED BLOOD COUNT 3.52 10^6/uL (4.00-5.40); WHITE BLOOD COUNT 3.7 10^3/uL (4.0-10.0)
[2022-06-08] MEDS: SLF 3 ML SYR IV SCH ×3 (05:39→21:30)
[2022-06-08 06:10] LABS: ALBUMIN 2.9 G/DL (3.2-5.2); BILIRUBIN,TOTAL 0.7 MG/DL (0.3-1.2); CALCIUM LEVEL 8.9 MG/DL (8.5-10.1); CREATININE FOR GFR 1.05 MG/DL (0.55-1.30); GLOMERULAR FILTRATION RATE 57.9 (>51); POTASSIUM SERUM 2.8 MMOL/L (3.5-5.1); TOTAL PROTEIN 6.5 G/DL (5.7-8.2)
[2022-06-08] MEDS ORDERED: POTASSIUM CHLORIDE 10% LIQ 20 MEQ/15 ML UDC PO ONE ×2 (06:25→08:00)
[2022-06-08] MEDS ORDERED: POTASSIUM CHLORIDE 10MEQ SR TABLET PO ONE (07:00)
[2022-06-08] MEDS ORDERED: KCL 10MEQ/100ML SWI (KRUN) 10 MEQ in IV 1 EA IV SCH (07:00)
[2022-06-08] MEDS: LACTULOSE 20 GM/30 ML SYRUP UD PO SCH ×4 (08:00→21:32)
[2022-06-08] MEDS: LEVEMIR (INSULIN DETEMIR) 1 UNITS/0.01ML SC SCH ×2 (08:00→21:31)
[2022-06-08] MEDS: SUCRALFATE 1 GM TAB PO SCH ×4 (08:01→21:32)
[2022-06-08] MEDS: INSULIN LISPRO (NovoLOG) PER UNIT SC SCH ×4 (08:01→21:00)
[2022-06-08] MEDS: ESCITALOPRAM OXALATE 10 MG TAB (LEXAPRO) PO SCH (08:02)
[2022-06-08] MEDS: BUMETANIDE 1 MG TAB PO SCH (08:02)
[2022-06-08] MEDS: FERROUS SULFATE 325MG TAB PO SCH (08:02)
[2022-06-08] MEDS: CARVedilol 12.5 MG TAB PO SCH ×2 (08:02→21:32)
[2022-06-08] MEDS: OMEPRAZOLE 20MG CAP PO SCH (08:03)
[2022-06-08] MEDS: APIXABAN 5 MG TAB (ELIQUIS) PO SCH ×2 (08:03→21:33)
[2022-06-08] MEDS: FLUTICASONE PROP 0.05% NASAL SPRAY 16 GM (FLONASE) SCH (08:03)
[2022-06-08] MEDS: rOPINIRole 2MG TAB PO SCH ×2 (08:03→21:32)
[2022-06-08] MEDS: rifAXIMin 550 MG TAB (XIFAXAN) PO SCH ×2 (08:03→21:32)
[2022-06-08] MEDS: SPIRONOLACTONE 50 MG TAB PO SCH (08:03)
[2022-06-08] MEDS: DOCUSATE SODIUM 100MG CAPSULE PO SCH ×2 (08:04→21:32)
[2022-06-08] MEDS: NYSTATIN 100,000 UNITS/GM TOPICAL PWD 15GM TOP SCH (08:04)
[2022-06-08 12:31] LABS: CREATININE FOR GFR 1.09 MG/DL (0.55-1.30); GLOMERULAR FILTRATION RATE 55.5 (>51)
[2022-06-08 13:50] LABS: CALCIUM LEVEL 8.9 MG/DL (8.5-10.1); CREATININE FOR GFR 1.07 MG/DL (0.55-1.30); GLOMERULAR FILTRATION RATE 56.7 (>51); POTASSIUM SERUM 3.3 MMOL/L (3.5-5.1)
[2022-06-08] MEDS: oxyCODONE 5MG TAB PO PRN (17:04)
[2022-06-08] MEDS: LIDOCAINE 5% (LIDODERM) PATCH TD SCH (21:29)
[2022-06-08] MEDS: TOPIRAMATE (TopAMAX) 25 MG TAB PO SCH (21:33)
[2022-06-08] MEDS ORDERED: GABAPENTIN 300 MG CAP PO ONE (22:00)
[2022-06-09 04:52] LABS: HEMATOCRIT 32.3 % (36.0-47.0); HEMOGLOBIN 11.3 g/dl (12.0-15.5); MEAN CORPUSCULAR HEMOGLOBIN 34.2 pg (27.0-33.0); MEAN CORPUSCULAR VOLUME 97.9 fl (80.0-96.0); WHITE BLOOD COUNT 3.9 10^3/uL (4.0-10.0)
[2022-06-09 04:53] LABS: PLATELET COUNT, AUTOMATED 95 10^3/uL (150-450)
[2022-06-09 04:55] VITALS: BP 115/56
[2022-06-09 05:16] LABS: ALBUMIN 2.9 G/DL (3.2-5.2); BILIRUBIN,TOTAL 0.7 MG/DL (0.3-1.2); CREATININE FOR GFR 1.22 MG/DL (0.55-1.30); GLOMERULAR FILTRATION RATE 48.7 (>51); TOTAL PROTEIN 6.4 G/DL (5.7-8.2)
[2022-06-09] MEDS: SLF 3 ML SYR IV SCH ×3 (05:51→21:05)
[2022-06-09 07:36] VITALS: BP 123/59
[2022-06-09] MEDS: LEVEMIR (INSULIN DETEMIR) 1 UNITS/0.01ML SC SCH ×2 (08:10→21:05)
[2022-06-09] MEDS: NYSTATIN 100,000 UNITS/GM TOPICAL PWD 15GM TOP SCH (08:11)
[2022-06-09] MEDS: FLUTICASONE PROP 0.05% NASAL SPRAY 16 GM (FLONASE) SCH (08:11)
[2022-06-09] MEDS: INSULIN LISPRO (NovoLOG) PER UNIT SC SCH ×4 (08:11→21:23)
[2022-06-09] MEDS: LACTULOSE 20 GM/30 ML SYRUP UD PO SCH ×4 (08:12→21:23)
[2022-06-09] MEDS: APIXABAN 5 MG TAB (ELIQUIS) PO SCH ×2 (08:12→21:03)
[2022-06-09] MEDS: FERROUS SULFATE 325MG TAB PO SCH (08:13)
[2022-06-09] MEDS: OMEPRAZOLE 20MG CAP PO SCH (08:13)
[2022-06-09] MEDS: rifAXIMin 550 MG TAB (XIFAXAN) PO SCH ×2 (08:13→21:03)
[2022-06-09] MEDS: CARVedilol 12.5 MG TAB PO SCH ×2 (08:13→21:03)
[2022-06-09] MEDS: SUCRALFATE 1 GM TAB PO SCH ×4 (08:13→21:03)
[2022-06-09] MEDS: rOPINIRole 2MG TAB PO SCH ×2 (08:14→21:00)
[2022-06-09] MEDS: ESCITALOPRAM OXALATE 10 MG TAB (LEXAPRO) PO SCH (08:14)
[2022-06-09] MEDS: SPIRONOLACTONE 50 MG TAB PO SCH (08:14)
[2022-06-09] MEDS: oxyCODONE 5MG TAB PO PRN ×2 (08:15→22:45)
[2022-06-09] MEDS: DOCUSATE SODIUM 100MG CAPSULE PO SCH ×2 (08:15→21:03)
[2022-06-09 12:00] VITALS: BP 124/62
[2022-06-09] MEDS: POTASSIUM CHLORIDE 10MEQ SR TABLET PO SCH ×2 (12:51→21:04)
[2022-06-09 16:00] VITALS: BP 121/58
[2022-06-09 19:42] VITALS: BP 121/67
[2022-06-09] MEDS: TOPIRAMATE (TopAMAX) 25 MG TAB PO SCH (21:03)
[2022-06-09] MEDS: LIDOCAINE 5% (LIDODERM) PATCH TD SCH (21:04)
[2022-06-09 23:10] VITALS: BP 100/64
[2022-06-10 06:00] VITALS: BP 115/64
[2022-06-10] MEDS: SUCRALFATE 1 GM TAB PO SCH ×4 (06:30→20:54)
[2022-06-10] MEDS: SLF 3 ML SYR IV SCH ×3 (06:34→20:57)
[2022-06-10 06:44] LABS: HEMATOCRIT 32.9 % (36.0-47.0); HEMOGLOBIN 11.4 g/dl (12.0-15.5); MEAN CORPUSCULAR HEMOGLOBIN 34.2 pg (27.0-33.0); MEAN CORPUSCULAR HGB CONC 34.7 g/dl (32.0-36.5); MEAN CORPUSCULAR VOLUME 98.8 fl (80.0-96.0); RED BLOOD COUNT 3.33 10^6/uL (4.00-5.40); WHITE BLOOD COUNT 3.1 10^3/uL (4.0-10.0)
[2022-06-10 06:50] LABS: PLATELET COUNT, AUTOMATED 89 10^3/uL (150-450)
[2022-06-10 07:29] LABS: ALBUMIN 2.8 G/DL (3.2-5.2); BILIRUBIN,TOTAL 0.7 MG/DL (0.3-1.2); CREATININE FOR GFR 1.19 MG/DL (0.55-1.30); GLOMERULAR FILTRATION RATE 50.1 (>51); POTASSIUM SERUM 3.5 MMOL/L (3.5-5.1); TOTAL PROTEIN 6.4 G/DL (5.7-8.2)
[2022-06-10] MEDS: INSULIN LISPRO (NovoLOG) PER UNIT SC SCH ×4 (08:59→20:57)
[2022-06-10] MEDS: LACTULOSE 20 GM/30 ML SYRUP UD PO SCH ×5 (08:59→20:55)
[2022-06-10] MEDS: rOPINIRole 2MG TAB PO SCH ×2 (09:00→20:53)
[2022-06-10] MEDS: POTASSIUM CHLORIDE 10MEQ SR TABLET PO SCH ×2 (09:00→20:54)
[2022-06-10] MEDS: LEVEMIR (INSULIN DETEMIR) 1 UNITS/0.01ML SC SCH (09:00)
[2022-06-10] MEDS: DOCUSATE SODIUM 100MG CAPSULE PO SCH ×2 (09:00→20:53)
[2022-06-10] MEDS: FLUTICASONE PROP 0.05% NASAL SPRAY 16 GM (FLONASE) SCH (09:00)
[2022-06-10] MEDS: FERROUS SULFATE 325MG TAB PO SCH (09:01)
[2022-06-10] MEDS: ESCITALOPRAM OXALATE 10 MG TAB (LEXAPRO) PO SCH (09:01)
[2022-06-10] MEDS: rifAXIMin 550 MG TAB (XIFAXAN) PO SCH ×2 (09:01→20:53)
[2022-06-10] MEDS: OMEPRAZOLE 20MG CAP PO SCH (09:01)
[2022-06-10] MEDS: APIXABAN 5 MG TAB (ELIQUIS) PO SCH ×2 (09:01→20:54)
[2022-06-10] MEDS: SPIRONOLACTONE 50 MG TAB PO SCH (09:01)
[2022-06-10] MEDS: CARVedilol 12.5 MG TAB PO SCH ×2 (09:04→20:55)
[2022-06-10] MEDS: NYSTATIN 100,000 UNITS/GM TOPICAL PWD 15GM TOP SCH (09:04)
[2022-06-10] MEDS: LIDOCAINE 5% (LIDODERM) PATCH TD SCH ×2 (09:05→20:56)
[2022-06-10 10:31] LABS: VENOUS BASE EXCESS -18.5 (-2.0-2.0); VENOUS HCO3 9.7 MEQ/L (23.0-27.0); VENOUS O2 SATURATION 92.5 % (60.0-80.0); VENOUS PARTIAL PRESSURE CO2 30.8 mmHg (38.0-50.0); VENOUS PARTIAL PRESSURE O2 79.4 mmHg (30.0-50.0); VENOUS PH 7.114 UNITS (7.330-7.430); VENOUS STANDARD HCO3 10.8 MEQ/L; VENOUS TOTAL CO2 10.6 MEQ/L (24.0-28.0)
[2022-06-10] MEDS: oxyCODONE 5MG TAB PO PRN ×2 (11:47→20:55)
[2022-06-10 14:00] VITALS: BP 110/45
[2022-06-10] MEDS: SODIUM BICARBONATE 150 MEQ in D5W 1,000 ML IV SCH (17:34)
[2022-06-10 18:13] LABS: CREATININE,RANDOM URINE 104.1 MG/DL
[2022-06-10 18:15] LABS: CHLORIDE,RANDOM URINE 19.99999 MMOL/L; SODIUM,RANDOM URINE < 10 MMOL/L
[2022-06-10 19:09] LABS: POTASSIUM RANDOM URINE 8.6 MMOL/L
[2022-06-10] MEDS: TOPIRAMATE (TopAMAX) 25 MG TAB PO SCH (20:54)
[2022-06-10] MEDS ORDERED: LEVEMIR (INSULIN DETEMIR) 1 UNITS/0.01ML SC SCH (21:00)
[2022-06-10 22:00] VITALS: BP 176/85
[2022-06-11] MEDS ORDERED: KETOROLAC 30 MG/ML 1ML VIAL IV ONE (03:40)
[2022-06-11 05:41] LABS: VENOUS BASE EXCESS -15.6 (-2.0-2.0); VENOUS HCO3 9.5 MEQ/L (23.0-27.0); VENOUS O2 SATURATION 98.6 % (60.0-80.0); VENOUS PARTIAL PRESSURE O2 146.6 mmHg (30.0-50.0); VENOUS PH 7.254 UNITS (7.330-7.430); VENOUS STANDARD HCO3 12.7 MEQ/L; VENOUS TOTAL CO2 10.2 MEQ/L (24.0-28.0)
[2022-06-11 05:52] LABS: HEMATOCRIT 31.6 % (36.0-47.0); HEMOGLOBIN 11.3 g/dl (12.0-15.5); MEAN CORPUSCULAR HEMOGLOBIN 34.8 pg (27.0-33.0); MEAN CORPUSCULAR HGB CONC 35.8 g/dl (32.0-36.5); MEAN CORPUSCULAR VOLUME 97.2 fl (80.0-96.0); RED BLOOD COUNT 3.25 10^6/uL (4.00-5.40); WHITE BLOOD COUNT 3.6 10^3/uL (4.0-10.0)
[2022-06-11] MEDS: SLF 3 ML SYR IV SCH ×3 (06:00→21:42)
[2022-06-11 06:11] VITALS: BP 141/65
[2022-06-11 06:12] LABS: PLATELET COUNT, AUTOMATED 84 10^3/uL (150-450)
[2022-06-11] MEDS: SODIUM BICARBONATE 150 MEQ in D5W 1,000 ML IV SCH ×2 (06:24→17:07)
[2022-06-11 06:46] LABS: ALBUMIN 2.9 G/DL (3.2-5.2); ALKALINE PHOSPHATASE 212 U/L (46-116); ALT/SGPT 37 U/L (7.0-40); AST/SGOT 36 U/L (<34); BILIRUBIN,TOTAL 0.9 MG/DL (0.3-1.2); BLOOD UREA NITROGEN 44 MG/DL (9-23); CALCIUM LEVEL 9.5 MG/DL (8.5-10.1); CARBON DIOXIDE LEVEL < 10.0 MMOL/L (20-31); CHLORIDE LEVEL 123 MMOL/L (98-107); CREATININE FOR GFR 1.42 MG/DL (0.55-1.30); GLOMERULAR FILTRATION RATE 40.9 (>51); GLUCOSE, FASTING 304 MG/DL (60-100); POTASSIUM SERUM 3.5 MMOL/L (3.5-5.1); SODIUM LEVEL 145 MMOL/L (136-145); TOTAL PROTEIN 6.5 G/DL (5.7-8.2)
[2022-06-11] MEDS: rOPINIRole 2MG TAB PO SCH ×2 (08:50→22:01)
[2022-06-11] MEDS: SUCRALFATE 1 GM TAB PO SCH ×4 (08:51→22:01)
[2022-06-11] MEDS: LACTULOSE 20 GM/30 ML SYRUP UD PO SCH ×3 (08:51→22:02)
[2022-06-11] MEDS: POTASSIUM CHLORIDE 10MEQ SR TABLET PO SCH ×3 (08:52→22:01)
[2022-06-11] MEDS: ESCITALOPRAM OXALATE 10 MG TAB (LEXAPRO) PO SCH (08:52)
[2022-06-11] MEDS: DOCUSATE SODIUM 100MG CAPSULE PO SCH ×2 (08:52→22:35)
[2022-06-11] MEDS: OMEPRAZOLE 20MG CAP PO SCH (08:52)
[2022-06-11] MEDS: rifAXIMin 550 MG TAB (XIFAXAN) PO SCH ×2 (08:53→22:00)
[2022-06-11] MEDS: INSULIN LISPRO (NovoLOG) PER UNIT SC SCH ×4 (08:53→20:39)
[2022-06-11] MEDS: CARVedilol 12.5 MG TAB PO SCH ×2 (08:53→22:00)
[2022-06-11] MEDS: FERROUS SULFATE 325MG TAB PO SCH (08:53)
[2022-06-11] MEDS: LEVEMIR (INSULIN DETEMIR) 1 UNITS/0.01ML SC SCH ×2 (08:54→22:02)
[2022-06-11] MEDS: NYSTATIN 100,000 UNITS/GM TOPICAL PWD 15GM TOP SCH (08:54)
[2022-06-11] MEDS: FLUTICASONE PROP 0.05% NASAL SPRAY 16 GM (FLONASE) SCH (08:57)
[2022-06-11 14:00] VITALS: BP 136/63
[2022-06-11 20:27] VITALS: BP 150/65
[2022-06-11] MEDS: TOPIRAMATE (TopAMAX) 25 MG TAB PO SCH (21:59)
[2022-06-11] MEDS: oxyCODONE 5MG TAB PO PRN (21:59)
[2022-06-11] MEDS: APIXABAN 5 MG TAB (ELIQUIS) PO SCH (21:59)
[2022-06-11] MEDS: LIDOCAINE 5% (LIDODERM) PATCH TD SCH (22:02)
[2022-06-12] MEDS: SODIUM BICARBONATE 150 MEQ in D5W 1,000 ML IV SCH ×3 (01:30→21:48)
[2022-06-12 05:14] VITALS: BP 135/89
[2022-06-12 06:02] LABS: VENOUS BASE EXCESS -7.8 (-2.0-2.0); VENOUS HCO3 16.4 MEQ/L (23.0-27.0); VENOUS O2 SATURATION 98.2 % (60.0-80.0); VENOUS PARTIAL PRESSURE CO2 29.4 mmHg (38.0-50.0); VENOUS PARTIAL PRESSURE O2 144.5 mmHg (30.0-50.0); VENOUS PH 7.364 UNITS (7.330-7.430); VENOUS STANDARD HCO3 18.2 MEQ/L; VENOUS TOTAL CO2 17.3 MEQ/L (24.0-28.0)
[2022-06-12 06:25] LABS: HEMATOCRIT 29.2 % (36.0-47.0); HEMOGLOBIN 10.9 g/dl (12.0-15.5); MEAN CORPUSCULAR HEMOGLOBIN 35.5 pg (27.0-33.0); MEAN CORPUSCULAR VOLUME 95.1 fl (80.0-96.0); RED BLOOD COUNT 3.07 10^6/uL (4.00-5.40); WHITE BLOOD COUNT 3.1 10^3/uL (4.0-10.0)
[2022-06-12 06:35] LABS: PLATELET COUNT, AUTOMATED 78 10^3/uL (150-450)
[2022-06-12 06:36] LABS: MEAN CORPUSCULAR HGB CONC 37.3 g/dl (32.0-36.5)
[2022-06-12 06:47] LABS: ALBUMIN 2.8 G/DL (3.2-5.2); ALKALINE PHOSPHATASE 202 U/L (46-116); ALT/SGPT 33 U/L (7.0-40); AST/SGOT 36 U/L (<34); BILIRUBIN,TOTAL 0.9 MG/DL (0.3-1.2); BLOOD UREA NITROGEN 33 MG/DL (9-23); CALCIUM LEVEL 8.6 MG/DL (8.5-10.1); CARBON DIOXIDE LEVEL 16 MMOL/L (20-31); CHLORIDE LEVEL 119 MMOL/L (98-107); CREATININE FOR GFR 0.95 MG/DL (0.55-1.30); GLOMERULAR FILTRATION RATE > 60.0 (>51); GLUCOSE, FASTING 212 MG/DL (60-100); POTASSIUM SERUM 3.4 MMOL/L (3.5-5.1); SODIUM LEVEL 145 MMOL/L (136-145); TOTAL PROTEIN 6.1 G/DL (5.7-8.2)
[2022-06-12] MEDS ORDERED: DOCUSATE SODIUM 100MG CAPSULE PO PRN (07:45)
[2022-06-12] MEDS: APIXABAN 5 MG TAB (ELIQUIS) PO SCH ×2 (09:00→21:20)
[2022-06-12] MEDS: LEVEMIR (INSULIN DETEMIR) 1 UNITS/0.01ML SC SCH ×2 (09:00→21:18)
[2022-06-12] MEDS: LACTULOSE 20 GM/30 ML SYRUP UD PO SCH ×3 (09:00→21:20)
[2022-06-12] MEDS: OMEPRAZOLE 20MG CAP PO SCH (09:01)
[2022-06-12] MEDS: POTASSIUM CHLORIDE 10MEQ SR TABLET PO SCH ×3 (09:01→21:20)
[2022-06-12] MEDS: INSULIN LISPRO (NovoLOG) PER UNIT SC SCH ×4 (09:01→21:17)
[2022-06-12] MEDS: FERROUS SULFATE 325MG TAB PO SCH (09:01)
[2022-06-12] MEDS: rOPINIRole 2MG TAB PO SCH ×2 (09:01→21:19)
[2022-06-12] MEDS: ESCITALOPRAM OXALATE 10 MG TAB (LEXAPRO) PO SCH (09:01)
[2022-06-12] MEDS: rifAXIMin 550 MG TAB (XIFAXAN) PO SCH ×2 (09:02→21:18)
[2022-06-12] MEDS: NYSTATIN 100,000 UNITS/GM TOPICAL PWD 15GM TOP SCH (09:02)
[2022-06-12] MEDS: SUCRALFATE 1 GM TAB PO SCH ×4 (09:02→21:20)
[2022-06-12] MEDS: oxyCODONE 5MG TAB PO PRN ×2 (10:12→22:33)
[2022-06-12] MEDS: CARVedilol 12.5 MG TAB PO SCH ×2 (10:16→21:00)
[2022-06-12 11:23] LABS: HEMATOCRIT 29.1 % (36.0-47.0); HEMOGLOBIN 10.5 g/dl (12.0-15.5)
[2022-06-12] MEDS: FLUTICASONE PROP 0.05% NASAL SPRAY 16 GM (FLONASE) SCH (13:26)
[2022-06-12 14:00] VITALS: BP 120/73
[2022-06-12] MEDS: LIDOCAINE 5% (LIDODERM) PATCH TD SCH (21:16)
[2022-06-12] MEDS: TOPIRAMATE (TopAMAX) 25 MG TAB PO SCH (21:18)
[2022-06-12 21:30] VITALS: BP 120/70
[2022-06-13 05:33] LABS: VENOUS BASE EXCESS 0.6 (-2.0-2.0); VENOUS HCO3 24.3 MEQ/L (23.0-27.0); VENOUS O2 SATURATION 89.8 % (60.0-80.0); VENOUS PARTIAL PRESSURE CO2 35.6 mmHg (38.0-50.0); VENOUS PARTIAL PRESSURE O2 55.2 mmHg (30.0-50.0); VENOUS PH 7.452 UNITS (7.330-7.430); VENOUS STANDARD HCO3 24.9 MEQ/L; VENOUS TOTAL CO2 25.4 MEQ/L (24.0-28.0)
[2022-06-13] MEDS: SODIUM BICARBONATE 150 MEQ in D5W 1,000 ML IV SCH (05:36)
[2022-06-13 05:40] LABS: HEMATOCRIT 28.5 % (36.0-47.0); HEMOGLOBIN 10.3 g/dl (12.0-15.5); MEAN CORPUSCULAR HEMOGLOBIN 34.4 pg (27.0-33.0); MEAN CORPUSCULAR HGB CONC 36.1 g/dl (32.0-36.5); MEAN CORPUSCULAR VOLUME 95.3 fl (80.0-96.0); RED BLOOD COUNT 2.99 10^6/uL (4.00-5.40); WHITE BLOOD COUNT 3.3 10^3/uL (4.0-10.0)
[2022-06-13 05:55] LABS: PLATELET COUNT, AUTOMATED 70 10^3/uL (150-450)
[2022-06-13 06:00] VITALS: BP 113/70
[2022-06-13 06:07] LABS: ALBUMIN 2.5 G/DL (3.2-5.2); ALKALINE PHOSPHATASE 210 U/L (46-116); ALT/SGPT 35 U/L (7.0-40); AST/SGOT 40 U/L (<34); BILIRUBIN,TOTAL 0.8 MG/DL (0.3-1.2); BLOOD UREA NITROGEN 24 MG/DL (9-23); CALCIUM LEVEL 7.9 MG/DL (8.5-10.1); CARBON DIOXIDE LEVEL 26 MMOL/L (20-31); CHLORIDE LEVEL 111 MMOL/L (98-107); CREATININE FOR GFR 0.84 MG/DL (0.55-1.30); GLOMERULAR FILTRATION RATE > 60.0 (>51); GLUCOSE, FASTING 211 MG/DL (60-100); POTASSIUM SERUM 4.2 MMOL/L (3.5-5.1); SODIUM LEVEL 141 MMOL/L (136-145)
[2022-06-13] MEDS: rifAXIMin 550 MG TAB (XIFAXAN) PO SCH ×2 (09:04→20:37)
[2022-06-13] MEDS: FERROUS SULFATE 325MG TAB PO SCH (09:05)
[2022-06-13] MEDS: ESCITALOPRAM OXALATE 10 MG TAB (LEXAPRO) PO SCH (09:05)
[2022-06-13] MEDS: APIXABAN 5 MG TAB (ELIQUIS) PO SCH ×2 (09:05→20:35)
[2022-06-13] MEDS: OMEPRAZOLE 20MG CAP PO SCH (09:06)
[2022-06-13] MEDS: SUCRALFATE 1 GM TAB PO SCH ×4 (09:06→20:34)
[2022-06-13] MEDS: CARVedilol 12.5 MG TAB PO SCH ×2 (09:08→20:43)
[2022-06-13] MEDS: POTASSIUM CHLORIDE 10MEQ SR TABLET PO SCH ×3 (09:10→20:37)
[2022-06-13] MEDS: LACTULOSE 20 GM/30 ML SYRUP UD PO SCH ×3 (09:11→20:34)
[2022-06-13] MEDS: NYSTATIN 100,000 UNITS/GM TOPICAL PWD 15GM TOP SCH (09:12)
[2022-06-13] MEDS: FLUTICASONE PROP 0.05% NASAL SPRAY 16 GM (FLONASE) SCH (09:12)
[2022-06-13] MEDS: LEVEMIR (INSULIN DETEMIR) 1 UNITS/0.01ML SC SCH ×2 (09:14→20:38)
[2022-06-13] MEDS: INSULIN LISPRO (NovoLOG) PER UNIT SC SCH ×4 (09:15→20:36)
[2022-06-13] MEDS: rOPINIRole 2MG TAB PO SCH ×2 (09:17→20:37)
[2022-06-13 10:12] VITALS: BP 119/69
[2022-06-13] MEDS: SPIRONOLACTONE 50 MG TAB PO SCH (10:31)
[2022-06-13 10:41] LABS: PLTBLUE- EDTA FREE CALC 57 K/mm3 (172-450); PLTBLUE- EDTA FREE MACHINE 52 10^3/uL (172-450)
[2022-06-13] MEDS ORDERED: SODI650T PO (11:26)
[2022-06-13] MEDS ORDERED: LACT20EL PO (11:26)
[2022-06-13] MEDS ORDERED: LIDO5TD TD (11:26)
[2022-06-13 14:00] VITALS: BP 122/64
[2022-06-13] MEDS ORDERED: SODIUM CHLORIDE NASAL 0.65% SPRAY BTL (OCEAN) PRN (19:55)
[2022-06-13] MEDS: oxyCODONE 5MG TAB PO PRN (20:35)
[2022-06-13] MEDS: TOPIRAMATE (TopAMAX) 25 MG TAB PO SCH (20:35)
[2022-06-13] MEDS: LIDOCAINE 5% (LIDODERM) PATCH TD SCH ×2 (20:38→20:46)
[2022-06-13 22:00] VITALS: BP 102/61
[2022-06-14] MEDS ORDERED: LIDOCAINE 5% (LIDODERM) PATCH TD ONE (04:40)
[2022-06-14 06:00] VITALS: BP 145/74
[2022-06-14 07:12] LABS: VENOUS BASE EXCESS -3.2 (-2.0-2.0); VENOUS HCO3 20.2 MEQ/L (23.0-27.0); VENOUS O2 SATURATION 97.8 % (60.0-80.0); VENOUS PARTIAL PRESSURE CO2 31.1 mmHg (38.0-50.0); VENOUS PARTIAL PRESSURE O2 106.2 mmHg (30.0-50.0); VENOUS STANDARD HCO3 21.8 MEQ/L; VENOUS TOTAL CO2 21.1 MEQ/L (24.0-28.0)
[2022-06-14 07:23] LABS: HEMATOCRIT 31.1 % (36.0-47.0); HEMOGLOBIN 11.1 g/dl (12.0-15.5); MEAN CORPUSCULAR HGB CONC 35.7 g/dl (32.0-36.5); MEAN CORPUSCULAR VOLUME 98.1 fl (80.0-96.0); RED BLOOD COUNT 3.17 10^6/uL (4.00-5.40); WHITE BLOOD COUNT 5.3 10^3/uL (4.0-10.0)
[2022-06-14 07:26] LABS: PLATELET COUNT, AUTOMATED 68 10^3/uL (150-450)
[2022-06-14 08:02] LABS: ALKALINE PHOSPHATASE 228 U/L (46-116); ALT/SGPT 42 U/L (7.0-40); AST/SGOT 53 U/L (<34); BLOOD UREA NITROGEN 27 MG/DL (9-23); CALCIUM LEVEL 8.4 MG/DL (8.5-10.1); CARBON DIOXIDE LEVEL 18 MMOL/L (20-31); CHLORIDE LEVEL 111 MMOL/L (98-107); CREATININE FOR GFR 1.01 MG/DL (0.55-1.30); GLOMERULAR FILTRATION RATE > 60.0 (>51); GLUCOSE, FASTING 189 MG/DL (60-100); SODIUM LEVEL 141 MMOL/L (136-145); TOTAL PROTEIN 5.5 G/DL (5.7-8.2)
[2022-06-14] MEDS: SUCRALFATE 1 GM TAB PO SCH ×4 (08:13→21:14)
[2022-06-14] MEDS: INSULIN LISPRO (NovoLOG) PER UNIT SC SCH ×4 (08:14→20:08)
[2022-06-14] MEDS: oxyCODONE 5MG TAB PO PRN ×2 (08:17→21:22)
[2022-06-14 08:27] VITALS: BP 145/81
[2022-06-14 08:55] LABS: LYMPHOCYTES 6 % (16-44); MONOCYTES 2 % (0-5); NEUTROPHILS 88 % (28-66)
[2022-06-14 08:57] LABS: PLATELET ESTIMATE MARKED DECREASE (NORMAL)
[2022-06-14] MEDS: APIXABAN 5 MG TAB (ELIQUIS) PO SCH ×2 (09:37→21:14)
[2022-06-14] MEDS: POTASSIUM CHLORIDE 10MEQ SR TABLET PO SCH (09:38)
[2022-06-14] MEDS: OMEPRAZOLE 20MG CAP PO SCH (09:38)
[2022-06-14] MEDS: FERROUS SULFATE 325MG TAB PO SCH (09:38)
[2022-06-14] MEDS: rOPINIRole 2MG TAB PO SCH ×2 (09:38→21:18)
[2022-06-14] MEDS: ESCITALOPRAM OXALATE 10 MG TAB (LEXAPRO) PO SCH (09:38)
[2022-06-14] MEDS: SPIRONOLACTONE 50 MG TAB PO SCH (09:39)
[2022-06-14] MEDS: rifAXIMin 550 MG TAB (XIFAXAN) PO SCH ×2 (09:39→21:15)
[2022-06-14] MEDS: CARVedilol 12.5 MG TAB PO SCH ×2 (09:39→21:18)
[2022-06-14] MEDS: NYSTATIN 100,000 UNITS/GM TOPICAL PWD 15GM TOP SCH (09:40)
[2022-06-14] MEDS: LACTULOSE 20 GM/30 ML SYRUP UD PO SCH ×3 (09:40→21:13)
[2022-06-14] MEDS: FLUTICASONE PROP 0.05% NASAL SPRAY 16 GM (FLONASE) SCH (09:40)
[2022-06-14] MEDS: LEVEMIR (INSULIN DETEMIR) 1 UNITS/0.01ML SC SCH ×2 (10:08→21:13)
[2022-06-14] MEDS: SODIUM BICARBONATE 325 MG TAB PO SCH ×2 (12:06→21:14)
[2022-06-14 12:56] LABS: LDH LACTATE DEHYDROGENASE 390 U/L (120-246)
[2022-06-14 12:57] LABS: BILIRUBIN,DIRECT 0.9 MG/DL (<0.4)
[2022-06-14 13:08] LABS: INR 1.6; PROTHROMBIN TIME 19.3 SECONDS (12.5-14.5)
[2022-06-14 13:09] LABS: PARTIAL THROMBOPLASTIN TIME 39.4 SECONDS (24.8-34.2)
[2022-06-14 13:11] LABS: D-DIMER QUANT 1577.16 ng/ml (<500)
[2022-06-14 14:03] VITALS: BP 138/60
[2022-06-14] MEDS: LIDOCAINE 5% (LIDODERM) PATCH TD SCH (21:15)
[2022-06-14] MEDS: TOPIRAMATE (TopAMAX) 25 MG TAB PO SCH (21:15)
[2022-06-15] MEDS ORDERED: oxyCODONE 5MG TAB PO ONE (01:50)
[2022-06-15 06:18] LABS: VENOUS BASE EXCESS -2.2 (-2.0-2.0); VENOUS HCO3 22.8 MEQ/L (23.0-27.0); VENOUS O2 SATURATION 72.4 % (60.0-80.0); VENOUS PARTIAL PRESSURE CO2 40.2 mmHg (38.0-50.0); VENOUS PH 7.372 UNITS (7.330-7.430); VENOUS STANDARD HCO3 22.1 MEQ/L; VENOUS TOTAL CO2 24.1 MEQ/L (24.0-28.0)
[2022-06-15 06:27] LABS: HEMATOCRIT 29.8 % (36.0-47.0); HEMOGLOBIN 10.5 g/dl (12.0-15.5); MEAN CORPUSCULAR HEMOGLOBIN 34.4 pg (27.0-33.0); MEAN CORPUSCULAR HGB CONC 35.2 g/dl (32.0-36.5); MEAN CORPUSCULAR VOLUME 97.7 fl (80.0-96.0); RED BLOOD COUNT 3.05 10^6/uL (4.00-5.40); WHITE BLOOD COUNT 5.9 10^3/uL (4.0-10.0)
[2022-06-15 06:28] LABS: PLATELET COUNT, AUTOMATED 61 10^3/uL (150-450)
[2022-06-15 06:36] LABS: INR 1.85; PROTHROMBIN TIME 21.7 SECONDS (12.5-14.5)
[2022-06-15 06:46] LABS: BILIRUBIN,DIRECT 1.3 MG/DL (<0.4)
[2022-06-15 06:53] LABS: LYMPHOCYTES 7 % (16-44); MONOCYTES 9 % (0-5); NEUTROPHILS 60 % (28-66)
[2022-06-15 06:54] LABS: PLATELET ESTIMATE MARKED DECREASE (NORMAL)
[2022-06-15] MEDS: SUCRALFATE 1 GM TAB PO SCH ×4 (07:40→20:07)
[2022-06-15] MEDS: INSULIN LISPRO (NovoLOG) PER UNIT SC SCH ×4 (07:44→20:14)
[2022-06-15 08:00] VITALS: BP 112/48
[2022-06-15] MEDS: oxyCODONE 5MG TAB PO PRN ×2 (09:56→20:08)
[2022-06-15 10:00] VITALS: BP 136/74
[2022-06-15] MEDS ORDERED: ISOVUE-370 76% 100ML VIAL As Ordered ONE ×2 (10:24→11:42)
[2022-06-15] MEDS: LEVEMIR (INSULIN DETEMIR) 1 UNITS/0.01ML SC SCH ×2 (11:13→20:08)
[2022-06-15] MEDS: FLUTICASONE PROP 0.05% NASAL SPRAY 16 GM (FLONASE) SCH (11:13)
[2022-06-15] MEDS: NYSTATIN 100,000 UNITS/GM TOPICAL PWD 15GM TOP SCH (11:14)
[2022-06-15] MEDS: LACTULOSE 20 GM/30 ML SYRUP UD PO SCH ×3 (11:14→20:07)
[2022-06-15 11:15] LABS: ALBUMIN 2.7 G/DL (3.2-5.2); BILIRUBIN,TOTAL 2.2 MG/DL (0.3-1.2); CALCIUM LEVEL 8.1 MG/DL (8.5-10.1); CREATININE FOR GFR 1.03 MG/DL (0.55-1.30); GLOMERULAR FILTRATION RATE 59.2 (>51); POTASSIUM SERUM 4.2 MMOL/L (3.5-5.1); TOTAL PROTEIN 6.1 G/DL (5.7-8.2)
[2022-06-15] MEDS: rOPINIRole 2MG TAB PO SCH ×2 (11:15→20:11)
[2022-06-15] MEDS: SODIUM BICARBONATE 325 MG TAB PO SCH ×2 (11:16→20:08)
[2022-06-15] MEDS: SPIRONOLACTONE 50 MG TAB PO SCH (11:16)
[2022-06-15] MEDS: CARVedilol 12.5 MG TAB PO SCH ×2 (11:17→20:09)
[2022-06-15] MEDS: rifAXIMin 550 MG TAB (XIFAXAN) PO SCH ×2 (11:17→20:08)
[2022-06-15] MEDS: APIXABAN 5 MG TAB (ELIQUIS) PO SCH ×2 (11:18→20:08)
[2022-06-15] MEDS: FERROUS SULFATE 325MG TAB PO SCH (11:18)
[2022-06-15] MEDS: OMEPRAZOLE 20MG CAP PO SCH (11:18)
[2022-06-15] MEDS: ESCITALOPRAM OXALATE 10 MG TAB (LEXAPRO) PO SCH (11:18)
[2022-06-15 15:00] VITALS: BP 126/62
[2022-06-15] MEDS: ACETAMINOPHEN 500 MG TAB PO PRN (17:36)
[2022-06-15 20:00] VITALS: BP 137/64
[2022-06-15] MEDS: TOPIRAMATE (TopAMAX) 25 MG TAB PO SCH (20:07)
[2022-06-15] MEDS: LIDOCAINE 5% (LIDODERM) PATCH TD SCH (20:13)
[2022-06-16] MEDS: ACETAMINOPHEN 500 MG TAB PO PRN ×2 (01:58→20:50)
[2022-06-16] MEDS ORDERED: ONDANSETRON 4MG 2ML VIAL IV ONE (03:20)
[2022-06-16] MEDS ORDERED: KETOROLAC 30 MG/ML 1ML VIAL IV ONE (03:20)
[2022-06-16 05:53] VITALS: BP 121/56
[2022-06-16 05:59] LABS: VENOUS BASE EXCESS -4.6 (-2.0-2.0); VENOUS HCO3 19.7 MEQ/L (23.0-27.0); VENOUS O2 SATURATION 96.8 % (60.0-80.0); VENOUS PARTIAL PRESSURE CO2 33.4 mmHg (38.0-50.0); VENOUS PARTIAL PRESSURE O2 91.9 mmHg (30.0-50.0); VENOUS PH 7.388 UNITS (7.330-7.430); VENOUS STANDARD HCO3 20.6 MEQ/L; VENOUS TOTAL CO2 20.7 MEQ/L (24.0-28.0)
[2022-06-16 06:03] LABS: HEMATOCRIT 27.1 % (36.0-47.0); HEMOGLOBIN 9.5 g/dl (12.0-15.5); MEAN CORPUSCULAR HEMOGLOBIN 33.9 pg (27.0-33.0); MEAN CORPUSCULAR HGB CONC 35.1 g/dl (32.0-36.5); MEAN CORPUSCULAR VOLUME 96.8 fl (80.0-96.0); WHITE BLOOD COUNT 4.2 10^3/uL (4.0-10.0)
[2022-06-16 06:10] LABS: PLATELET COUNT, AUTOMATED 59 10^3/uL (150-450)
[2022-06-16 06:14] LABS: INR 1.81; PROTHROMBIN TIME 21.3 SECONDS (12.5-14.5)
[2022-06-16 06:15] LABS: PLTBLUE- EDTA FREE CALC 39 K/mm3 (172-450)
[2022-06-16 06:26] LABS: BILIRUBIN,DIRECT 1.3 MG/DL (<0.4)
[2022-06-16 06:34] LABS: LYMPHOCYTES 5 % (16-44); MONOCYTES 5 % (0-5); NEUTROPHILS 88 % (28-66)
[2022-06-16 06:35] LABS: PLATELET ESTIMATE DECREASED (NORMAL)
[2022-06-16 06:37] LABS: PLTBLUE- EDTA FREE MACHINE 35 10^3/uL (172-450)
[2022-06-16 06:39] LABS: ALBUMIN 2.3 G/DL (3.2-5.2); CALCIUM LEVEL 7.7 MG/DL (8.5-10.1); CREATININE FOR GFR 1.12 MG/DL (0.55-1.30); GLOMERULAR FILTRATION RATE 53.8 (>51); POTASSIUM SERUM 3.7 MMOL/L (3.5-5.1); TOTAL PROTEIN 5.4 G/DL (5.7-8.2)
[2022-06-16] MEDS: INSULIN LISPRO (NovoLOG) PER UNIT SC SCH ×4 (07:30→21:00)
[2022-06-16] MEDS ORDERED: LACTULOSE 20 GM/30 ML SYRUP UD PO PRN (07:40)
[2022-06-16] MEDS: SUCRALFATE 1 GM TAB PO SCH ×4 (08:54→20:51)
[2022-06-16] MEDS: SODIUM BICARBONATE 325 MG TAB PO SCH ×2 (08:54→20:51)
[2022-06-16] MEDS: rOPINIRole 2MG TAB PO SCH ×2 (08:54→20:52)
[2022-06-16] MEDS: LEVEMIR (INSULIN DETEMIR) 1 UNITS/0.01ML SC SCH ×2 (08:54→20:53)
[2022-06-16] MEDS: SPIRONOLACTONE 50 MG TAB PO SCH (08:55)
[2022-06-16] MEDS: rifAXIMin 550 MG TAB (XIFAXAN) PO SCH ×2 (08:55→20:51)
[2022-06-16] MEDS: CARVedilol 12.5 MG TAB PO SCH ×2 (08:55→20:52)
[2022-06-16] MEDS: OMEPRAZOLE 20MG CAP PO SCH (08:55)
[2022-06-16] MEDS: NYSTATIN 100,000 UNITS/GM TOPICAL PWD 15GM TOP SCH (08:55)
[2022-06-16] MEDS: FLUTICASONE PROP 0.05% NASAL SPRAY 16 GM (FLONASE) SCH (08:55)
[2022-06-16] MEDS: FERROUS SULFATE 325MG TAB PO SCH (08:55)
[2022-06-16] MEDS: ESCITALOPRAM OXALATE 10 MG TAB (LEXAPRO) PO SCH (08:55)
[2022-06-16] MEDS: LACTULOSE 20 GM/30 ML SYRUP UD PO SCH (08:56)
[2022-06-16 14:00] VITALS: BP 132/69
[2022-06-16] MEDS: APIXABAN 5 MG TAB (ELIQUIS) PO SCH ×2 (14:01→20:52)
[2022-06-16] MEDS: oxyCODONE 5MG TAB PO PRN (14:05)
[2022-06-16] MEDS: DOXYCYCLINE HYCLATE 100MG TABLET PO SCH ×2 (14:05→20:49)
[2022-06-16] MEDS: LIDOCAINE 5% (LIDODERM) PATCH TD SCH (20:49)
[2022-06-16] MEDS: TOPIRAMATE (TopAMAX) 25 MG TAB PO SCH (20:50)
[2022-06-16 21:30] VITALS: BP 132/68
[2022-06-17] MEDS: oxyCODONE 5MG TAB PO PRN (04:02)
[2022-06-17 06:00] VITALS: BP 110/47
[2022-06-17 06:43] LABS: HEMOGLOBIN 9.2 g/dl (12.0-15.5); MEAN CORPUSCULAR HEMOGLOBIN 33.9 pg (27.0-33.0); MEAN CORPUSCULAR HGB CONC 35.4 g/dl (32.0-36.5); MEAN CORPUSCULAR VOLUME 95.9 fl (80.0-96.0); RED BLOOD COUNT 2.71 10^6/uL (4.00-5.40); WHITE BLOOD COUNT 4.5 10^3/uL (4.0-10.0)
[2022-06-17 06:47] LABS: PLATELET COUNT, AUTOMATED 70 10^3/uL (150-450)
[2022-06-17] MEDS: LEVEMIR (INSULIN DETEMIR) 1 UNITS/0.01ML SC SCH ×2 (09:25→20:32)
[2022-06-17] MEDS: LACTULOSE 20 GM/30 ML SYRUP UD PO SCH (09:26)
[2022-06-17] MEDS: INSULIN LISPRO (NovoLOG) PER UNIT SC SCH ×4 (09:26→20:22)
[2022-06-17] MEDS: CARVedilol 12.5 MG TAB PO SCH ×2 (09:26→20:33)
[2022-06-17] MEDS: SODIUM BICARBONATE 325 MG TAB PO SCH ×2 (09:26→20:32)
[2022-06-17] MEDS: FERROUS SULFATE 325MG TAB PO SCH (09:27)
[2022-06-17] MEDS: NYSTATIN 100,000 UNITS/GM TOPICAL PWD 15GM TOP SCH (09:27)
[2022-06-17] MEDS: FLUTICASONE PROP 0.05% NASAL SPRAY 16 GM (FLONASE) SCH (09:27)
[2022-06-17] MEDS: SUCRALFATE 1 GM TAB PO SCH ×4 (09:27→20:33)
[2022-06-17] MEDS: DOXYCYCLINE HYCLATE 100MG TABLET PO SCH ×2 (09:27→20:32)
[2022-06-17] MEDS: OMEPRAZOLE 20MG CAP PO SCH (09:27)
[2022-06-17] MEDS: rifAXIMin 550 MG TAB (XIFAXAN) PO SCH ×2 (09:27→20:33)
[2022-06-17] MEDS: ESCITALOPRAM OXALATE 10 MG TAB (LEXAPRO) PO SCH (09:27)
[2022-06-17] MEDS: SPIRONOLACTONE 50 MG TAB PO SCH (09:27)
[2022-06-17] MEDS: APIXABAN 5 MG TAB (ELIQUIS) PO SCH ×2 (09:27→20:33)
[2022-06-17] MEDS: rOPINIRole 2MG TAB PO SCH ×2 (09:31→20:33)
[2022-06-17 14:00] VITALS: BP 117/56
[2022-06-17] MEDS: TOPIRAMATE (TopAMAX) 25 MG TAB PO SCH (20:32)
[2022-06-17] MEDS: LIDOCAINE 5% (LIDODERM) PATCH TD SCH (20:32)
[2022-06-17] MEDS ORDERED: ONDANSETRON 4MG ORAL DISINTEGRATING TAB SL PRN (23:45)
[2022-06-17] MEDS ORDERED: CALCIUM CARBONATE 500 MG CHEW U/D PO PRN (23:45)
[2022-06-18] MEDS: oxyCODONE 5MG TAB PO PRN (02:32)
[2022-06-18 05:01] VITALS: BP 112/56
[2022-06-18] MEDS: LACTULOSE 20 GM/30 ML SYRUP UD PO SCH (09:25)
[2022-06-18] MEDS: ESCITALOPRAM OXALATE 10 MG TAB (LEXAPRO) PO SCH (09:26)
[2022-06-18] MEDS: APIXABAN 5 MG TAB (ELIQUIS) PO SCH (09:26)
[2022-06-18] MEDS: rifAXIMin 550 MG TAB (XIFAXAN) PO SCH (09:26)
[2022-06-18] MEDS: rOPINIRole 2MG TAB PO SCH (09:26)
[2022-06-18] MEDS: FERROUS SULFATE 325MG TAB PO SCH (09:26)
[2022-06-18] MEDS: OMEPRAZOLE 20MG CAP PO SCH (09:26)
[2022-06-18] MEDS: SUCRALFATE 1 GM TAB PO SCH ×2 (09:26→12:53)
[2022-06-18] MEDS: SPIRONOLACTONE 50 MG TAB PO SCH (09:26)
[2022-06-18] MEDS: SODIUM BICARBONATE 325 MG TAB PO SCH (09:26)
[2022-06-18] MEDS: DOXYCYCLINE HYCLATE 100MG TABLET PO SCH (09:26)
[2022-06-18] MEDS: INSULIN LISPRO (NovoLOG) PER UNIT SC SCH ×2 (09:27→12:53)
[2022-06-18] MEDS: LEVEMIR (INSULIN DETEMIR) 1 UNITS/0.01ML SC SCH (09:27)
[2022-06-18] MEDS: NYSTATIN 100,000 UNITS/GM TOPICAL PWD 15GM TOP SCH (09:28)
[2022-06-18] MEDS: FLUTICASONE PROP 0.05% NASAL SPRAY 16 GM (FLONASE) SCH (09:28)
[2022-06-18 09:29] VITALS: BP 105/51
[2022-06-18] MEDS: CARVedilol 12.5 MG TAB PO SCH (09:29)
[2022-06-18] MEDS ORDERED: DOXY100T PO (10:45)
[2022-06-18] MEDS ORDERED: CARV25TA PO (10:45)
[2022-06-18] MEDS ORDERED: CARVedilol 12.5 MG TAB PO SCH (21:00)
== END 2022-06-18 14:10 ==
LOC: M ED 19:37 → M ED INP 06-07 01:21 → ENRESERV 06-07 02:03 → M PCU 06-07 02:51 → M MSPAV 06-09 23:07
PROVIDERS: ADMIT Internal Medicine; ATTEND Internal Medicine Nephrology
DX: K76.82 Hepatic encephalopathy (principal); I81 Portal vein thrombosis; D61.818 Other pancytopenia; E87.20 Acidosis, unspecified; N17.9 Acute kidney failure, unspecified; I13.0 Hypertensive heart and chronic kidney disease with heart failure and stage 1 through stage 4 chronic kidney disease, or unspecified chronic kidney disease; E11.22 Type 2 diabetes mellitus with diabetic chronic kidney disease; K76.6 Portal hypertension; I50.32 Chronic diastolic (congestive) heart failure; N18.30 Chronic kidney disease, stage 3 unspecified; E11.42 Type 2 diabetes mellitus with diabetic polyneuropathy; E11.51 Type 2 diabetes mellitus with diabetic peripheral angiopathy without gangrene; E66.01 Morbid (severe) obesity due to excess calories; Z68.42 Body mass index [BMI] 45.0-49.9, adult; J45.909 Unspecified asthma, uncomplicated; G47.33 Obstructive sleep apnea (adult) (pediatric); F32.A Depression, unspecified; F41.9 Anxiety disorder, unspecified; M17.11 Unilateral primary osteoarthritis, right knee; R26.89 Other abnormalities of gait and mobility; G25.81 Restless legs syndrome; K21.9 Gastro-esophageal reflux disease without esophagitis; Z90.49 Acquired absence of other specified parts of digestive tract; E87.6 Hypokalemia; G43.909 Migraine, unspecified, not intractable, without status migrainosus; Z20.822 Contact with and (suspected) exposure to COVID-19; N39.0 Urinary tract infection, site not specified; K75.81 Nonalcoholic steatohepatitis (NASH)

== ENCOUNTER → 2022-06-19 | Outpatient (REF) ==
[~2022-06-19] MED LIST changes: +ADME100I2 SC; +DOXY100T PO; +LIDO5TD TD; +SODI650T PO
== END ==
PROVIDERS: ATTEND Internal Medicine
DX: R09.02 Hypoxemia (principal); Z53.8 Procedure and treatment not carried out for other reasons

== ENCOUNTER → 2022-06-23 | Outpatient (REF) ==
[2022-06-23 11:14] LABS: HEMATOCRIT 24.9 % (36.0-47.0); HEMOGLOBIN 8.7 g/dl (12.0-15.5); MEAN CORPUSCULAR HEMOGLOBIN 33.7 pg (27.0-33.0); MEAN CORPUSCULAR HGB CONC 34.9 g/dl (32.0-36.5); MEAN CORPUSCULAR VOLUME 96.5 fl (80.0-96.0); PLATELET COUNT, AUTOMATED 121 10^3/uL (150-450); RED BLOOD COUNT 2.58 10^6/uL (4.00-5.40); WHITE BLOOD COUNT 6.9 10^3/uL (4.0-10.0)
[2022-06-23 11:36] LABS: CALCIUM LEVEL 7.5 MG/DL (8.5-10.1); CREATININE FOR GFR 1.1 MG/DL (0.55-1.30); GLOMERULAR FILTRATION RATE 54.9 (>51); POTASSIUM SERUM 3.3 MMOL/L (3.5-5.1)
== END ==
PROVIDERS: ATTEND Internal Medicine
DX: R09.02 Hypoxemia (principal)

== ENCOUNTER → 2022-06-23 | Outpatient (REF) | payer MEDICAID, OTHER | PROVIDERS: ATTEND Internal Medicine | DX: K74.60 Unspecified cirrhosis of liver (principal); Z53.8 Procedure and treatment not carried out for other reasons ==

== ENCOUNTER → 2022-06-23 | Outpatient (REF) ==
[2022-06-23 11:24] LABS: INR 1.6; PROTHROMBIN TIME 19.3 SECONDS (12.5-14.5)
== END ==
PROVIDERS: ATTEND Internal Medicine
DX: K74.60 Unspecified cirrhosis of liver (principal)

== ENCOUNTER → 2022-06-24 | Outpatient (REF) | PROVIDERS: ATTEND Physician Assistant | DX: K74.60 Unspecified cirrhosis of liver (principal) ==

== ENCOUNTER → 2022-06-26 | Outpatient (REF) | payer MEDICAID, OTHER ==
[2022-06-26 18:32] LABS: HEMATOCRIT 23.6 % (36.0-47.0); MEAN CORPUSCULAR HGB CONC 33.9 g/dl (32.0-36.5); MEAN CORPUSCULAR VOLUME 100.4 fl (80.0-96.0); PLATELET COUNT, AUTOMATED 116 10^3/uL (150-450); RED BLOOD COUNT 2.35 10^6/uL (4.00-5.40); WHITE BLOOD COUNT 6.2 10^3/uL (4.0-10.0)
[2022-06-26 19:05] LABS: CALCIUM LEVEL 7.8 MG/DL (8.5-10.1); CREATININE FOR GFR 1.09 MG/DL (0.55-1.30); GLOMERULAR FILTRATION RATE 55.5 (>51); PERCENT SATURATION 15.2 % (13.2-45.0); POTASSIUM SERUM 3.6 MMOL/L (3.5-5.1)
== END ==
PROVIDERS: ATTEND Internal Medicine
DX: D64.9 Anemia, unspecified (principal)